=== PATIENT | male | born 1950 | race Caucasian/White ===

== ENCOUNTER 2020-07-31 13:39 | Outpatient (CLI) | payer MEDICARE | END 2020-07-31 13:40 | disposition critical access hospital (66) | LOC: EMS 13:39 | PROVIDERS: ATTEND Registered Nurse | DX: R39.198 Other difficulties with micturition (principal); R19.7 Diarrhea, unspecified | CPT/HCPCS: A0425; A0429 ==

== ENCOUNTER 2020-07-31 14:05 | Emergency (ER) | payer MEDICARE ==
[2020-07-31] MEDS ORDERED: SODIUM CHLORIDE 0.9% 1,000 ML IV STA (14:10)
[2020-07-31 14:34] LABS: BASOPHILS % (AUTO) 0.8 %; EOSINOPHILS # (AUTO) 0.1 10^3/uL (0.0-0.7); EOSINOPHILS % (AUTO) 2.1 %; LYMPHOCYTES # (AUTO) 0.6 10^3/uL (1.5-3.5); LYMPHOCYTES % (AUTO) 11.8 %; MEAN CORPUSCULAR HEMOGLOBIN 30.3 pg (27.0-31.0); MEAN CORPUSCULAR HGB CONC 32.7 g/dL (32.0-36.0); MEAN CORPUSCULAR VOLUME 92.6 fL (80.0-94.0); MONOCYTES # (AUTO) 0.8 10^3/uL (0.0-1.0); MONOCYTES % (AUTO) 14.7 %; NEUTROPHILS # (AUTO) 3.6 10^3/uL (1.5-6.6); NEUTROPHILS % (AUTO) 70.4 %; PLT - PLATELET COUNT 95 10^3/uL (130-450); RED BLOOD COUNT 2.97 10^6/uL (4.70-6.10); WHITE BLOOD COUNT 5.2 x10^3/uL (4.8-10.8)
[2020-07-31 14:38] LABS: INR 1.7 (0.8-1.2); PT - PROTHROMBIN TIME 18.4 secs (9.9-12.6)
--- NOTE | 2020-07-31 14:38 | ED Physician Documentation ---
History of Present Illness - Stated complaint Stated Complaint: ABD PX - Chief complaint Chief Complaint: General - Additonal information Additional information: 69-year-old male presents to the emergency department for evaluation of rectal b leeding and dribbling urine. He unfortunately has a history of end-stage liver disease, anemia, hepatic encephalopathy, ascites as well as alcohol abuse. He iscurrently drinking for "tall boy" beers a day. He reports that 4 days ago he decided to take a bath. At the end of the bath he was unable to get out of the bathtub. He remained in the tub for nearly 24 hours before neighbors came to help him. In an attempt to get out of the bathtub he has bruising in the right upper quadrant of his abdomen as well as the right hip. This morning he has been dribbling his urine and after defecating which he noted to be loose he began having rectal bleeding. He reports that on the advice of 2 friends he was told to come to the emergency department. On presentation he appears much older than stated age. He has a very distended and tight abdomen with palpable ascites. He is audibly dyspneic with wheeze and mild tachypnea. Normal saturations 98% on room air. He reports that he is having a hard time breathing because he is wearing a mask, but states he is always a "loud" breather. At this time he denies chest pain. He denies fevers, he denies abdominal pain. Though he appears dyspneic he denies shortness of air. He does have lower extremity swelling that is not new for him. He is adamant with nursing staff and this provider that he is at his baseline health and does not feel bad He does see Dr. Ulloa as his primary care doctor he denies that he has a history of receiving paracentesis on a regular basis. The last time was he was hospitalized was in December 2015. The distention of his abdomen is NOT new. he denies abdominal pain. He does not know the names of his medications that he takes though there do sound to be some diuresis involved. But he states he is compliant with his medications. Per his words "I cannot read the medication labels because of my cataracts but I take 3 pills in the morning and 1 in the evening." Patient [facility] a [facility] in [place]. Review of Systems Constitutional: denies: Fever, Chills, Myalgias Eyes: reports: Reviewed and negative Nose: reports: Reviewed and negative Throat: reports: Reviewed and negative Cardiac: reports: Pedal edema. denies: Chest pain / pressure, Palpitations Respiratory: reports: Dyspnea, Wheezing. denies: Cough, Hemoptysis GI: reports: Diarrhea, Bloody / black stool. denies: Abdominal Pain, Abdominal Swelling, Nausea, Vomiting : reports: Unable to Void Skin: reports: Abrasion (s) (abrasions/bruising RUQ abdomen, right hip) Neurologic: denies: Difficulty speaking, Near syncope, Syncope, Seizure, Altered mental status, Headache, Head injury, LOC PD PAST MEDICAL HISTORY - Past Medical History Past Medical History: Yes Cardiovascular: Hypertension Respiratory: None Endocrine/Autoimmune: None GI: None : None HEENT: Chronic vision loss, Other Psych: None Musculoskeletal: None Derm: None - Past Surgical History Past Surgical History: Yes General: Other HEENT: Tonsil/Adenoidectomy - Present Medications Home Medications: Ambulatory Orders Medication Instructions Recorded Confirmed Folic Acid 1 mg PO DAILY 30 Days #30 07/31/20 Furosemide [Lasix] 20 mg PO DAILY 07/31/20 07/31/20 Furosemide [Lasix] 20 mg PO DAILY #30 07/31/20 Lactulose 15 ml PO TID #1 bottle 07/31/20 Metoprolol Succinate [Toprol Xl] 50 mg PO DAILY 07/31/20 07/31/20 Metoprolol Succinate [Toprol Xl] 50 mg PO DAILY #30 07/31/20 Pantoprazole [Protonix] 40 mg PO DAILY #30 07/31/20 Propranolol [Inderal] 10 mg PO BID 07/31/20 07/31/20 Propranolol [Inderal] 10 mg PO BID #60 07/31/20 Spironolactone [Aldactone] 25 mg PO DAILY 07/31/20 07/31/20 Spironolactone [Aldactone] 25 mg PO DAILY #30 07/31/20 - Allergies Allergies/Adverse Reactions: Allergies Allergy/AdvReac Type Severity Reaction Status Date / Time No Known Drug Allergies Allergy Verified 07/31/20 15:09 - Social History Does the pt smoke?: No Smoking Status: Never smoker Does the pt drink ETOH?: Yes ETOH Use: Beer Does the pt have substance abuse?: Yes - Immunizations Immunizations are current?: Yes Immunizations: TDAP >10years/unknown - POLST Patient has POLST: No PD ED PE EXPANDED - General General: Alert, Disheveled, poorly kept (Urine stained clothing with bloody stool seen on the underpants) - HEENT HEENT: PERRL, Moist mucous membranes, Pharyngeal erythema - Neck Neck: Supple w/out meningeal sx, No tenderness - Cardiac Cardiac: Regular Rate, Murmur Present, Radial strong equal, Pedal strong equal, Cap refill < 2 sec - Respiratory Respiratory: Labored, Wheezing. No: Retractions, Rhonchi - Abdomen Abdomen: Distended (Grossly distended and taut abdomen with palpable ascites. Bruising right upper quadrant of the abdomen.) - Male Male : Normal Exam, Circumcised, Other (Bladder scan revealed 4 50-500 mils of retained urine) - Rectal Rectal: Hemorrhoid (Small amount of hematochezia on gloved finger), Normal Tone - Back Back: Other (Bruising right upper quadrant of abdomen and right hip.) - Derm Derm: Normal color, Warm and dry, Jaundiced, Other (Spider hemangiomas of chest and legs. Palmar erythema and ascites consistent with stigmata of cirrhosis) - Extremities Extremities: Pedal edema bilateral, Pedal Pulses Present. No: Deformity, Tenderness, Right calf TTP/cord, Left calf TTP/cord - Neuro Neuro: Alert and Oriented X 3, CNII-XII intact, Normal gait, Normal speech - GCS Eye Opening: Spontaneous Motor: Obeys Commands Verbal: Oriented Total: 15 Results - Vitals Vitals: Vital Signs - 24 hr 07/31/20 07/31/20 07/31/20 14:11 14:36 15:02 Temperature 37.2 C Heart Rate 89 85 84 Respiratory 24 25 H 25 H Rate Blood Pressure 158/91 H 145/96 H 139/79 H O2 Saturation 98 98 98 07/31/20 15:38 Temperature 36.9 C Heart Rate 85 Respiratory 21 Rate Blood Pressure 146/76 H O2 Saturation 98 Oxygen O2 Source Room air - EKG (time done) 1447 Rate: Rate (enter#) (85) Rhythm: NSR Baker: Normal Intervals: RBBB QRS: Normal Ischemia: Non specific changes Compare to prior EKG: Old EKG unavailable Computer interpretation: Agree with computer - Labs Labs: Laboratory Tests 07/31/20 07/31/20 07/31/20 14:18 14:18 14:18 WBC 5.2 RBC 2.97 L Hgb 9.0 L Hct 27.5 L MCV 92.6 MCH 30.3 MCHC 32.7 RDW 16.0 H Plt Count 95 L MPV 12.0 H Neut # (Auto) 3.6 Lymph # (Auto) 0.6 L [place] # (Auto) 0.8 Eos # (Auto) 0.1 Baso # (Auto) 0.0 Absolute Nucleated RBC 0.00 Nucleated RBC % 0.0 PT 18.4 H INR 1.7 H Sodium 132 L Potassium 3.6 Chloride 99 L Carbon Dioxide 24 Anion Gap 9.0 BUN 12 Creatinine 0.8 Estimated GFR (MDRD) 95 Glucose 103 H Lactic Acid Calcium 8.1 L Total Bilirubin 6.3 H AST 81 H ALT 25 Alkaline Phosphatase 175 H Ammonia Total Creatine Kinase Troponin I High Sens B-Natriuretic Peptide Total Protein 7.0 Albumin 2.8 L Globulin 4.2 Albumin/Globulin Ratio 0.7 L Lipase 48 TSH Urine Color Urine Clarity Urine pH Ur Specific [place] Urine Protein Urine Glucose (UA) Urine Ketones Urine Occult Blood Urine Nitrite Urine Bilirubin Urine Urobilinogen Ur Leukocyte Esterase Urine RBC Urine WBC Ur Squamous Epith Cells Urine Bacteria Ur Microscopic Review Urine Culture Comments Ethyl Alcohol Blood Type Antibody Screen 07/31/20 07/31/20 07/31/20 14:18 14:18 14:18 WBC RBC Hgb Hct MCV MCH MCHC RDW Plt Count MPV Neut # (Auto) Lymph # (Auto) [place] # (Auto) Eos # (Auto) Baso # (Auto) Absolute Nucleated RBC Nucleated RBC % PT INR Sodium Potassium Chloride Carbon Dioxide Anion Gap BUN Creatinine Estimated GFR (MDRD) Glucose Lactic Acid 1.6 Calcium Total Bilirubin AST ALT Alkaline Phosphatase Ammonia 52.2 H Total Creatine Kinase 86 Troponin I High Sens B-Natriuretic Peptide Total Protein Albumin Globulin Albumin/Globulin Ratio Lipase TSH Urine Color Urine Clarity Urine pH Ur Specific Canon Urine Protein Urine Glucose (UA) Urine Ketones Urine Occult Blood Urine Nitrite Urine Bilirubin Urine Urobilinogen Ur Leukocyte Esterase Urine RBC Urine WBC Ur Squamous Epith Cells Urine Bacteria Ur Microscopic Review Urine Culture Comments Ethyl Alcohol Blood Type Antibody Screen 07/31/20 07/31/20 07/31/20 14:18 14:18 14:18 WBC RBC Hgb Hct MCV MCH MCHC RDW Plt Count MPV Neut # (Auto) Lymph # (Auto) [place] # (Auto) Eos # (Auto) Baso # (Auto) Absolute Nucleated RBC Nucleated RBC % PT INR Sodium Potassium Chloride Carbon Dioxide Anion Gap BUN Creatinine Estimated GFR (MDRD) Glucose Lactic Acid Calcium Total Bilirubin AST ALT Alkaline Phosphatase Ammonia Total Creatine Kinase Troponin I High Sens 8.5 B-Natriuretic Peptide 265 H Total Protein Albumin Globulin Albumin/Globulin Ratio Lipase TSH 6.70 H Urine Color Urine Clarity Urine pH Ur Specific Canon Urine Protein Urine Glucose (UA) Urine Ketones Urine Occult Blood Urine Nitrite Urine Bilirubin Urine Urobilinogen Ur Leukocyte Esterase Urine RBC Urine WBC Ur Squamous Epith Cells Urine Bacteria Ur Microscopic Review Urine Culture Comments Ethyl Alcohol Blood Type Antibody Screen 07/31/20 07/31/20 07/31/20 14:18 14:35 14:40 WBC RBC Hgb Hct MCV MCH MCHC RDW Plt Count MPV Neut # (Auto) Lymph # (Auto) [place] # (Auto) Eos # (Auto) Baso # (Auto) Absolute Nucleated RBC Nucleated RBC % PT INR Sodium Potassium Chloride Carbon Dioxide Anion Gap BUN Creatinine Estimated GFR (MDRD) Glucose Lactic Acid Calcium Total Bilirubin AST ALT Alkaline Phosphatase Ammonia Total Creatine Kinase Troponin I High Sens B-Natriuretic Peptide Total Protein Albumin Globulin Albumin/Globulin Ratio Lipase TSH Urine Color YELLOW Urine Clarity CLEAR Urine pH 6.5 Ur Specific [place] 1.020 Urine Protein NEGATIVE Urine Glucose (UA) NEGATIVE Urine Ketones NEGATIVE Urine Occult Blood MODERATE H Urine Nitrite NEGATIVE Urine Bilirubin NEGATIVE Urine Urobilinogen 0.2 (NORMAL) Ur Leukocyte Esterase NEGATIVE Urine RBC 6-10 H Urine WBC 0-3 Ur Squamous Epith Cells RARE Squamous Urine Bacteria None Seen Ur Microscopic Review INDICATED Urine Culture Comments NOT INDICATED Ethyl Alcohol < 5.0 Blood Type A POSITIVE Antibody Screen NEGATIVE - Rads (name of study) CT abd Radiology: Final report received (No significant rectal or perirectal abnormalities seen to explain the patient's presenting history of rectal bleeding. Cirrhotic liver with findings of portal venous hypertension with upper abdominal varices including GE varices and a recanalized umbilical vein/varices. splenomegaly and ascites) PD MEDICAL DECISION MAKING - ED course Complexity details: reviewed results, re-evaluated patient, considered differential, d/w patient ED course: 69-year-old male who has a history of end-stage liver disease presents to the emergency department for chief complaint of 2 days difficulty initiating urine and noted rectal bleeding this a.m. He reports that he is compliant with his medications however he is unsure the name of any medications that he takes. He also reports cataract so severe that he cannot read the labels of the medicines he take this. We called the [place] pharmacy where he feels his meds and it does not appear that he has filled some of them for 2 to 3 months. On presentation he has a very distended abdomen with palpable ascites however he has no abdominal pain or fevers. His screening labs do show a baseline anemia of 9.0. Is preserved renal function as expected LFTs for cirrhosis. His BNP is mildly elevated in the 200s. High-sensitivity troponin is negative. Urine shows no signs of infection. A CT scan was completed it does show moderate ascites in the abdomen. Also findings of esophageal varices. On presentation he had formed and to milliliters of urine on bladder scan. A Calix catheter was placed with an equivocal amount that quickly drained. Suspicion is that this gentleman may not be taking his medications appropriately as he cannot read the bottles to understand them in addition to that he has not filled some the medications for many months. I suspect that increased ascites is contributing to his urinary retention. Reassuringly renal function is preserved and no hydronephrosis on CT scan. I offered patient a Calix catheter with leg bag upon discharge however he declined that option quite promptly. Patient does appear dyspneic but he is quite adamant as well that this is the way he normally bruits he does not feel that he is labored. Patient will be resumed on appropriate end-stage liver disease cirrhosis medications will include lactulose, Lasix, Aldactone, propanolol, folic acid, Metroprolol and Protonix. I have asked him to schedule very close follow-up with Dr. Ulloa this week. He is to return to the emergency department if he continues to have difficulty u rinating. He will return if he has worsening bloody stools fevers or if he begins to feel short of breath or with chest pain Departure - Departure Disposition: 01 Home, Self Care Clinical Impression: Urinary retention, Rectal bleeding Cirrhosis Qualifiers: Hepatic cirrhosis type: alcoholic cirrhosis Ascites presence: with ascites Qualified Code(s): K70.31 - Alcoholic cirrhosis of liver with ascites Condition: Stable Record reviewed to determine appropriate education?: Yes Instructions: Cirrhosis Liver Dc Follow-Up: Chuck Ulloa MD [Provider Admit Priv/Credential] - Prescriptions: Spironolactone [Aldactone] 25 mg PO DAILY #30 Folic Acid 1 mg PO DAILY 30 Days #30 Propranolol [Inderal] 10 mg PO BID #60 Lactulose 15 ml PO TID #1 bottle Furosemide [Lasix] 20 mg PO DAILY #30 Pantoprazole [Protonix] 40 mg PO DAILY #30 Metoprolol Succinate [Toprol Xl] 50 mg PO DAILY #30 Comments: Bobby lobo were seen in the emergency department today for urinary retention and rectal bleeding. As discussed we suspect you not taking the medications appropriately for a number of reasons. I have represcribed all of the medications you should be taking. Please fill them tomorrow and begin taking as directed. In addition to that please do not take any other medications you were previously prescribed. It is critical that you follow-up with Dr. Ulloa your primary provider this week. If at any point you are unable to urinate, you feel faint or dizzy, you have chest pain or feel short of breath or you have worsening rectal bleeding please return immediately to the emergency department.
[2020-07-31] MEDS ORDERED: FOLIC ACID INJ 1 MG, THIAMINE INJ 100 MG, MAGNESIUM SULFATE 2 GM, MULTIVITAMIN 10 ML in... IV STA ×5 (14:43)
[2020-07-31] MEDS ORDERED: PANTOPRAZOLE 40 MG VIAL IVP STA (14:44)
[2020-07-31] MEDS ORDERED: FOLIC ACID INJ 1 MG, THIAMINE INJ 100 MG, MAGNESIUM SULFATE 2 GM in SODIUM CHLORIDE 0.9... IV STA (14:46)
[2020-07-31 14:47] LABS: ALBUMIN 2.8 g/dL (3.2-5.5); ALBUMIN/GLOBULIN RATIO 0.7 (1.0-2.2); BILIRUBIN,TOTAL 6.3 mg/dL (0.2-1.0); CALCIUM 8.1 mg/dL (8.5-10.3); CREATININE 0.8 mg/dL (0.6-1.2)
[2020-07-31 14:49] LABS: BILIRUBIN,URINE NEGATIVE (NEGATIVE); GLUCOSE, URINE (UA) NEGATIVE (NEGATIVE); KETONES,URINE (UA) NEGATIVE (NEGATIVE); LEUKOCYTE ESTERASE, URINE NEGATIVE (NEGATIVE); NITRITE,URINE NEGATIVE (NEGATIVE); OCCULT BLOOD,URINE MODERATE (NEGATIVE); PH,URINE 6.5 PH (5.0-7.5); PROTEIN,URINE NEGATIVE (NEGATIVE); UROBILINOGEN,URINE 0.2 (NORMAL) E.U./dL (NORMAL)
--- NOTE | 2020-07-31 14:53 | XRAY Report ---
PROCEDURE: Chest 1 View X-Ray INDICATIONS: chest pain TECHNIQUE: One view of the chest was acquired. COMPARISON: None FINDINGS: Surgical changes and devices: None. Lungs and pleura: No pleural effusions or pneumothorax. Lungs are clear. Mediastinum: Mediastinal contours appear normal. Heart size is normal. Bones and chest wall: No suspicious bony lesions. Age-appropriate degenerative changes are seen. Overlying soft tissues appear unremarkable. IMPRESSION: Portable chest within normal limits for age. Reviewed by: Rehan Bazzi MD on 07/31/2020 1:52 PM [facility] Approved by: Rehan Bazzi MD on 07/31/2020 1:52 PM [facility] Station ID: [id number]
[2020-07-31 15:00] LABS: BACTERIA,URINE None Seen /HPF (None Seen); CLARITY,URINE CLEAR (CLEAR); SQUAMOUS EPITHELIAL CELL,UR RARE Squamous (<= Few)
[2020-07-31] MEDS ORDERED: IOVERSOL 320 100 ML VIAL IVP ONE ×2 (15:26→15:29)
--- NOTE | 2020-07-31 15:42 | CT Report ---
PROCEDURE: Abdomen/Pelvis W INDICATIONS: rectal bleeding CONTRAST: IV CONTRAST: Optiray 320 ml: 100 PO CONTRAST: *NO PO CONTRAST TECHNIQUE: After the administration of nonionic IV contrast, 5 mm thick sections acquired from the diaphragms to the symphysis. 5 mm thick coronal and sagittal reformats were acquired. For radiation dose reducti on, the following was used: automated exposure control, adjustment of mA and/or kV according to zeeshan ent size. COMPARISON: 12/19/2015 FINDINGS: Image quality: Excellent. ABDOMEN: Lung bases: Lung bases are clear. Heart size is normal. Solid organs: The liver demonstrates a nodular appearance. No focal liver masses can be seen. Upper a bdominal varices are seen, with gastroesophageal varices. There is a recanalized umbilical vein seen, with periumbilical varices. The spleen is enlarged, measuring 15.6 cm AP. No focal splenic lesion ca n be seen. Gallbladder demonstrates no significant CT abnormality Biliary system is non dilated. Pancreas enha nces normally. No adrenal nodules. Kidneys demonstrate normal size and enhancement, without hydrone phrosis. Peritoneum and bowel: In this patient with this given history, scrutiny is given to the region of th e rectum. No significant karl, rectal mass can be seen. No significant perirectal abnormality is see n. Bowel loops demonstrate normal wall thickness and caliber. No free air. A moderate amount of ascite s is seen. A normal appendix is incidentally noted. Nodes and vessels: No retroperitoneal or mesenteric adenopathy by size criteria. Aorta and inferior vena cava are normal in size. Atherosclerotic calcification is seen. Miscellaneous: No ventral hernias. PELVIS: Genitourinary: A Calix catheter decompresses the bladder. Miscellaneous: A fat-containing left inguinal hernia is seen. No enlarged inguinal or pelvic lymph n odes are seen. Bones: No suspicious bony lesions. No vertebral body compression fractures. Age-appropriate degene rative changes are seen. IMPRESSION: No significant rectal or perirectal abnormality is seen to explain the patient's present ing history of rectal bleeding. Cirrhotic liver, with associated findings of portal venous hypertension with upper abdominal varices, including gastroesophageal varices and a recanalized umbilical vein with periumbilical varices. Ther e is also splenomegaly and moderate ascites. Incidental note is made of: Normal appendix Calix catheter Fat-containing left inguinal hernia Reviewed by: Rehan Bazzi MD on 07/31/2020 2:41 PM [facility] Approved by: Rehan Bazzi MD on 07/31/2020 2:41 PM [facility] Station ID: [id number]
[2020-07-31] MEDS ORDERED: FUROSEMIDE 40 MG/4 ML VIAL IVP STA (15:49)
[2020-07-31] MEDS ORDERED: LACTULOSE 10 GM /15 ML UDC PO STA (15:49)
[2020-07-31 17:47] VITALS: BP 138/91
== END 2020-07-31 18:45 | disposition home or self-care (01) ==
LOC: EDUNIT# → ED 14:05
DX: R33.9 Retention of urine, unspecified (principal); K62.5 Hemorrhage of anus and rectum; K70.31 Alcoholic cirrhosis of liver with ascites; F10.10 Alcohol abuse, uncomplicated; Z91.138 Patient's unintentional underdosing of medication regimen for other reason
CPT/HCPCS: 36415; 51701; 71045; 74177; 80053; 81001; 82140; 82550; 83605; 83690; 83880; 84443; 84484; 85025; 85610; 86850; 86900; 86901; 93005; 96365; 96366; 96375; 99284; 99285; A9270; G0480; J3411; Q9967; 80320; 81003; 87086

== ENCOUNTER 2021-02-25 10:43 | Outpatient (CLI) | payer MEDICARE | END 2021-02-25 10:44 | disposition EMS.NT | LOC: EMS 10:43 | DX: Z03.89 Encounter for observation for other suspected diseases and conditions ruled out (principal) ==

== ENCOUNTER 2021-02-28 11:12 | Outpatient (CLI) | payer MEDICARE | END 2021-02-28 11:13 | disposition critical access hospital (66) | LOC: EMS 11:12 | DX: R41.82 Altered mental status, unspecified (principal) | CPT/HCPCS: A0425; A0429 ==

== ENCOUNTER 2021-02-28 11:42 | Inpatient (IN) | payer MEDICARE ==
[2021-02-28] MEDS ORDERED: FOLIC ACID INJ 1 MG, THIAMINE INJ 100 MG, MAGNESIUM SULFATE 2 GM, MULTIVITAMIN 10 ML in... IV STA ×5 (12:27)
--- NOTE | 2021-02-28 12:30 | ED Physician Documentation ---
History of Present Illness - Stated complaint Stated Complaint: FOUND DOWN - Chief complaint Chief Complaint: Neuro - History obtained from History obtained from: Patient, EMS - History of Present Illness Timing: Unknown Pain level max: 0 Pain level now: 0 - Additonal information Additional information: Patient is a 70-year-old male brought in by EMS today after he was found down at a hotel that he has been living at. He has a longstanding history of alcoholism and cirrhosis. Unclear if he has been taking his medications or not. EMS states he was covered in feces and very confused. Patient states that he has no pain. He states that he has been sick. He is unable to give any further information about what he means by "sick". No fevers. No chills. He denies any diarrhea or vomiting. He denies any trauma. Review of Systems Unable to obtain: [facility] PAST MEDICAL HISTORY - Past Medical History Past Medical History: Yes Cardiovascular: Hypertension Respiratory: None Endocrine/Autoimmune: None GI: None, Cirrhosis : None HEENT: Chronic vision loss, Other Psych: None Musculoskeletal: None Derm: None - Past Surgical History Past Surgical History: Yes General: Other HEENT: Tonsil/Adenoidectomy - Present Medications Home Medications: Ambulatory Orders Medication Instructions Recorded Confirmed Folic Acid 1 mg PO DAILY 30 Days #30 07/31/20 Furosemide [Lasix] 20 mg PO DAILY 07/31/20 07/31/20 Furosemide [Lasix] 20 mg PO DAILY #30 07/31/20 Lactulose 15 ml PO TID #1 bottle 07/31/20 Metoprolol Succinate [Toprol Xl] 50 mg PO DAILY 07/31/20 07/31/20 Metoprolol Succinate [Toprol Xl] 50 mg PO DAILY #30 07/31/20 Pantoprazole [Protonix] 40 mg PO DAILY #30 07/31/20 Propranolol [Inderal] 10 mg PO BID 07/31/20 07/31/20 Propranolol [Inderal] 10 mg PO BID #60 07/31/20 Spironolactone [Aldactone] 25 mg PO DAILY 07/31/20 07/31/20 Spironolactone [Aldactone] 25 mg PO DAILY #30 07/31/20 - Allergies Allergies/Adverse Reactions: Allergies Allergy/AdvReac Type Severity Reaction Status Date / Time No Known Drug Allergies Allergy Verified 02/14/21 15:09 - Social History Does the pt smoke?: No Smoking Status: Never smoker Does the pt drink ETOH?: Yes Does the pt have substance abuse?: Yes - Immunizations Immunizations are current?: Yes Immunizations: TDAP >10years/unknown - POLST Patient has POLST: No PD ED PE NORMAL - Vitals Vital signs reviewed: Yes - General General: Other (drowsy, but arousable) - HEENT HEENT: Moist mucous membranes - Neck Neck: Supple, no meningeal sign - Cardiac Cardiac: RRR - Respiratory Respiratory: No respiratory distress, Other (rhonchi B) - Abdomen Abdomen: Soft, Non tender, Non distended - Back Back: No spinal TTP, Other (skin breakdown to the buttocks) - Derm Derm: Warm and dry - Extremities Extremities: No edema - Neuro Neuro: Other (drowsy arousable, oriented to person and place, not to time) Eye Opening: To Voice Motor: Localizes to Pain Verbal: Inappropriate GCS Score: 11 Results - Vitals Vitals: Vital Signs - 24 hr 02/28/21 02/28/21 02/28/21 11:45 13:55 13:58 Temperature 37 C Heart Rate 131 H 104 H 98 Respiratory 22 20 21 Rate Blood Pressure 144/75 H 131/46 H 131/46 H O2 Saturation 958 H 99 90 L 02/28/21 02/28/21 02/28/21 15:00 16:13 16:29 Temperature Heart Rate 160 H 141 H 169 H Respiratory 18 17 23 Rate Blood Pressure 129/62 119/56 L 119/56 L O2 Saturation 98 95 96 02/28/21 02/28/21 02/28/21 16:39 17:36 19:02 Temperature Heart Rate 160 H 152 H 136 H Respiratory 21 18 19 Rate Blood Pressure 119/56 L 106/71 107/58 L O2 Saturation 97 96 98 02/28/21 02/28/21 02/28/21 19:30 20:30 21:00 Temperature 97.6 C H Heart Rate 127 H 152 H 135 H Respiratory 20 23 30 H Rate Blood Pressure 121/62 136/87 H 137/83 H O2 Saturation 95 97 94 02/28/21 22:21 Temperature Heart Rate 112 H Respiratory 29 H Rate Blood Pressure 96/67 O2 Saturation 93 Oxygen O2 Source Room air - EKG (time done) 1209 Rate: Rate (enter#) (104) Rhythm: Atrial fibrillation (104) QRS: Normal Ischemia: Non specific changes - Labs Labs: Laboratory Tests 02/28/21 02/28/21 02/28/21 12:34 12:34 12:34 WBC 33.9 H RBC 4.68 L Hgb 11.0 L Hct 33.4 L MCV 71.4 L MCH 23.5 L MCHC 32.9 RDW 25.2 H Plt Count 333 MPV 10.5 Neut # (Auto) Not Reportable Lymph # (Auto) Not Reportable [place] # (Auto) Not Reportable Eos # (Auto) Not Reportable Baso # (Auto) Not Reportable Absolute Nucleated RBC Not Reportable Total Counted 100 Band Neuts % (Manual) 3 Abnorm Lymph % (Manual) 0 Nucleated RBC % Not Reportable Neutrophils # (Manual) 31.9 H Lymphocytes # (Manual) 0.3 L Monocytes # (Manual) 1.7 H Eosinophils # (Manual) 0.0 Basophils # (Manual) 0.0 Differential Comment MANUAL DIFFERENTIAL Manual Slide Review Indicated PT INR APTT VBG pH VBG pCO2 VBG pO2 VBG HCO3 VBG Total CO2 VBG O2 Saturation VBG Base Excess Sodium 133 L Potassium 5.2 H Chloride 94 L Carbon Dioxide 13 L Anion Gap 26.0 H BUN 202 H* Creatinine 10.3 H* Estimated GFR (MDRD) 5 L Glucose 137 H Lactic Acid Calcium 8.2 L Phosphorus Magnesium Total Bilirubin 4.8 H AST 24 ALT 20 Alkaline Phosphatase 149 H Ammonia Total Creatine Kinase 36 Total Protein 7.2 Albumin 2.8 L Globulin 4.4 H Albumin/Globulin Ratio 0.6 L Lipase 246 H TSH 2.35 Free T4 0.69 Urine Color Urine Clarity Urine pH Ur Specific [place] Urine Protein Urine Glucose (UA) Urine Ketones Urine Occult Blood Urine Nitrite Urine Bilirubin Urine Urobilinogen Ur Leukocyte Esterase Urine RBC Urine WBC Ur Squamous Epith Cells Urine Bacteria Ur Microscopic Review Urine Culture Comments Nasal Adenovirus (PCR) Nasal B. parapertussis DNA (PCR) Nasal Coronavir 229E PCR Nasal Coronavir HKU1 PCR Nasal Coronavir NL63 PCR Nasal Coronavir OC43 PCR Nasal Enterovir/Rhinovir PCR Nasal Influenza B PCR Nasal Influenza A PCR Nasal Parainfluen 1 PCR Nasal Parainfluen 2 PCR Nasal Parainfluen 3 PCR Nasal Parainfluen 4 PCR Nasal RSV (PCR) Nasal B.pertussis DNA PCR Nasal C.pneumoniae (PCR) Gregory Human Metapneumo PCR Nasal M.pneumoniae (PCR) Nasal SARS-CoV-2 (PCR) Salicylates < 6.0 Urine Opiates Screen Ur Oxycodone Screen Urine Methadone Screen Ur Propoxyphene Screen Acetaminophen < 10 L Ur Barbiturates Screen Ur Tricyclics Screen Ur Phencyclidine Scrn Ur Amphetamine Screen U Methamphetamines Scrn U Benzodiazepines Scrn Urine Cocaine Screen U Cannabinoids Screen Ethyl Alcohol < 5.0 02/28/21 02/28/21 02/28/21 12:34 12:34 13:03 WBC RBC Hgb Hct MCV MCH MCHC RDW Plt Count MPV Neut # (Auto) Lymph # (Auto) [place] # (Auto) Eos # (Auto) Baso # (Auto) Absolute Nucleated RBC Total Counted Band Neuts % (Manual) Abnorm Lymph % (Manual) Nucleated RBC % Neutrophils # (Manual) Lymphocytes # (Manual) Monocytes # (Manual) Eosinophils # (Manual) Basophils # (Manual) Differential Comment Manual Slide Review PT 16.3 H INR 1.5 H APTT 30.2 VBG pH VBG pCO2 VBG pO2 VBG HCO3 VBG Total CO2 VBG O2 Saturation VBG Base Excess Sodium Potassium Chloride Carbon Dioxide Anion Gap BUN Creatinine Estimated GFR (MDRD) Glucose Lactic Acid Calcium Phosphorus Magnesium Total Bilirubin AST ALT Alkaline Phosphatase Ammonia 167.0 H* Total Creatine Kinase Total Protein Albumin Globulin Albumin/Globulin Ratio Lipase TSH Free T4 Urine Color DARK YELLOW Urine Clarity CLOUDY Urine pH 6.0 Ur Specific [place] 1.015 Urine Protein NEGATIVE Urine Glucose (UA) NEGATIVE Urine Ketones NEGATIVE Urine Occult Blood LARGE H Urine Nitrite NEGATIVE Urine Bilirubin NEGATIVE Urine Urobilinogen 1 (NORMAL) Ur Leukocyte Esterase MODERATE H Urine RBC 6-10 H Urine WBC >25 H Ur Squamous Epith Cells NONE SEEN Urine Bacteria Few Ur Microscopic Review INDICATED Urine Culture Comments INDICATED Nasal Adenovirus (PCR) Nasal B. parapertussis DNA (PCR) Nasal Coronavir 229E PCR Nasal Coronavir HKU1 PCR Nasal Coronavir NL63 PCR Nasal Coronavir OC43 PCR Nasal Enterovir/Rhinovir PCR Nasal Influenza B PCR Nasal Influenza A PCR Nasal Parainfluen 1 PCR Nasal Parainfluen 2 PCR Nasal Parainfluen 3 PCR Nasal Parainfluen 4 PCR Nasal RSV (PCR) Nasal B.pertussis DNA PCR Nasal C.pneumoniae (PCR) Gregory Human Metapneumo PCR Nasal M.pneumoniae (PCR) Nasal SARS-CoV-2 (PCR) Salicylates Urine Opiates Screen Ur Oxycodone Screen Urine Methadone Screen Ur Propoxyphene Screen Acetaminophen Ur Barbiturates Screen Ur Tricyclics Screen Ur Phencyclidine Scrn Ur Amphetamine Screen U Methamphetamines Scrn U Benzodiazepines Scrn Urine Cocaine Screen U Cannabinoids Screen Ethyl Alcohol 02/28/21 02/28/21 02/28/21 13:03 13:44 14:05 WBC RBC Hgb Hct MCV MCH MCHC RDW Plt Count MPV Neut # (Auto) Lymph # (Auto) [place] # (Auto) Eos # (Auto) Baso # (Auto) Absolute Nucleated RBC Total Counted Band Neuts % (Manual) Abnorm Lymph % (Manual) Nucleated RBC % Neutrophils # (Manual) Lymphocytes # (Manual) Monocytes # (Manual) Eosinophils # (Manual) Basophils # (Manual) Differential Comment Manual Slide Review PT INR APTT VBG pH VBG pCO2 VBG pO2 VBG HCO3 VBG Total CO2 VBG O2 Saturation VBG Base Excess Sodium Potassium Chloride Carbon Dioxide Anion Gap BUN Creatinine Estimated GFR (MDRD) Glucose Lactic Acid 3.1 H* Calcium Phosphorus Magnesium Total Bilirubin AST ALT Alkaline Phosphatase Ammonia Total Creatine Kinase Total Protein Albumin Globulin Albumin/Globulin Ratio Lipase TSH Free T4 Urine Color Urine Clarity Urine pH Ur Specific [place] Urine Protein Urine Glucose (UA) Urine Ketones Urine Occult Blood Urine Nitrite Urine Bilirubin Urine Urobilinogen Ur Leukocyte Esterase Urine RBC Urine WBC Ur Squamous Epith Cells Urine Bacteria Ur Microscopic Review Urine Culture Comments Nasal Adenovirus (PCR) NOT DETECTED Nasal B. parapertussis DNA (PCR) NOT DETECTED Nasal Coronavir 229E PCR NOT DETECTED Nasal Coronavir HKU1 PCR NOT DETECTED Nasal Coronavir NL63 PCR NOT DETECTED Nasal Coronavir OC43 PCR NOT DETECTED Nasal Enterovir/Rhinovir PCR NOT DETECTED Nasal Influenza B PCR NOT DETECTED Nasal Influenza A PCR NOT DETECTED Nasal Parainfluen 1 PCR NOT DETECTED Nasal Parainfluen 2 PCR NOT DETECTED Nasal Parainfluen 3 PCR NOT DETECTED Nasal Parainfluen 4 PCR NOT DETECTED Nasal RSV (PCR) NOT DETECTED Nasal B.pertussis DNA PCR NOT DETECTED Nasal C.pneumoniae (PCR) NOT DETECTED Gregory Human Metapneumo PCR NOT DETECTED Nasal M.pneumoniae (PCR) NOT DETECTED Nasal SARS-CoV-2 (PCR) NOT DETECTED Salicylates Urine Opiates Screen NEGATIVE Ur Oxycodone Screen NEGATIVE Urine Methadone Screen NEGATIVE Ur Propoxyphene Screen NEGATIVE Acetaminophen Ur Barbiturates Screen NEGATIVE Ur Tricyclics Screen NEGATIVE Ur Phencyclidine Scrn NEGATIVE Ur Amphetamine Screen NEGATIVE U Methamphetamines Scrn NEGATIVE U Benzodiazepines Scrn NEGATIVE Urine Cocaine Screen NEGATIVE U Cannabinoids Screen NEGATIVE Ethyl Alcohol 02/28/21 02/28/21 02/28/21 17:48 21:44 21:44 WBC 25.7 H RBC 4.19 L Hgb 9.9 L Hct 29.5 L MCV 70.4 L MCH 23.6 L MCHC 33.6 RDW 24.7 H Plt Count 284 MPV 10.3 Neut # (Auto) 22.7 H Lymph # (Auto) 0.6 L [place] # (Auto) 2.1 H Eos # (Auto) 0.0 Baso # (Auto) 0.1 Absolute Nucleated RBC 0.00 Total Counted Band Neuts % (Manual) Abnorm Lymph % (Manual) Nucleated RBC % 0.0 Neutrophils # (Manual) Lymphocytes # (Manual) Monocytes # (Manual) Eosinophils # (Manual) Basophils # (Manual) Differential Comment Manual Slide Review Indicated PT INR APTT VBG pH VBG pCO2 VBG pO2 VBG HCO3 VBG Total CO2 VBG O2 Saturation VBG Base Excess Sodium 135 137 Potassium 4.5 4.5 Chloride 101 104 Carbon Dioxide 12 L* 11 L* Anion Gap 22.0 H 22.0 H BUN 180 H* 173 H* Creatinine 8.7 H* 7.9 H* Estimated GFR (MDRD) 6 L 7 L Glucose 126 H 133 H Lactic Acid Calcium 7.7 L 7.7 L Phosphorus Magnesium Total Bilirubin 4.5 H AST 21 ALT 19 Alkaline Phosphatase 139 H Ammonia Total Creatine Kinase Total Protein 6.6 L Albumin 2.5 L Globulin 4.1 Albumin/Globulin Ratio 0.6 L Lipase 251 H TSH Free T4 Urine Color Urine Clarity Urine pH Ur Specific [place] Urine Protein Urine Glucose (UA) Urine Ketones Urine Occult Blood Urine Nitrite Urine Bilirubin Urine Urobilinogen Ur Leukocyte Esterase Urine RBC Urine WBC Ur Squamous Epith Cells Urine Bacteria Ur Microscopic Review Urine Culture Comments Nasal Adenovirus (PCR) Nasal B. parapertussis DNA (PCR) Nasal Coronavir 229E PCR Nasal Coronavir HKU1 PCR Nasal Coronavir NL63 PCR Nasal Coronavir OC43 PCR Nasal Enterovir/Rhinovir PCR Nasal Influenza B PCR Nasal Influenza A PCR Nasal Parainfluen 1 PCR Nasal Parainfluen 2 PCR Nasal Parainfluen 3 PCR Nasal Parainfluen 4 PCR Nasal RSV (PCR) Nasal B.pertussis DNA PCR Nasal C.pneumoniae (PCR) Gregory Human Metapneumo PCR Nasal M.pneumoniae (PCR) Nasal SARS-CoV-2 (PCR) Salicylates Urine Opiates Screen Ur Oxycodone Screen Urine Methadone Screen Ur Propoxyphene Screen Acetaminophen Ur Barbiturates Screen Ur Tricyclics Screen Ur Phencyclidine Scrn Ur Amphetamine Screen U Methamphetamines Scrn U Benzodiazepines Scrn Urine Cocaine Screen U Cannabinoids Screen Ethyl Alcohol 02/28/21 02/28/21 02/28/21 21:44 21:44 22:02 WBC RBC Hgb Hct MCV MCH MCHC RDW Plt Count MPV Neut # (Auto) Lymph # (Auto) [place] # (Auto) Eos # (Auto) Baso # (Auto) Absolute Nucleated RBC Total Counted Band Neuts % (Manual) Abnorm Lymph % (Manual) Nucleated RBC % Neutrophils # (Manual) Lymphocytes # (Manual) Monocytes # (Manual) Eosinophils # (Manual) Basophils # (Manual) Differential Comment Manual Slide Review PT INR APTT VBG pH 7.407 VBG pCO2 19.0 L VBG pO2 75.4 H VBG HCO3 11.7 L VBG Total CO2 12.3 L VBG O2 Saturation 93.4 H VBG Base Excess -11.0 L Sodium Potassium Chloride Carbon Dioxide Anion Gap BUN Creatinine Estimated GFR (MDRD) Glucose Lactic Acid 2.5 H Calcium Phosphorus 8.0 H Magnesium 3.5 H Total Bilirubin AST ALT Alkaline Phosphatase Ammonia Total Creatine Kinase Total Protein Albumin Globulin Albumin/Globulin Ratio Lipase TSH Free T4 Urine Color Urine Clarity Urine pH Ur Specific [place] Urine Protein Urine Glucose (UA) Urine Ketones Urine Occult Blood Urine Nitrite Urine Bilirubin Urine Urobilinogen Ur Leukocyte Esterase Urine RBC Urine WBC Ur Squamous Epith Cells Urine Bacteria Ur Microscopic Review Urine Culture Comments Nasal Adenovirus (PCR) Nasal B. parapertussis DNA (PCR) Nasal Coronavir 229E PCR Nasal Coronavir HKU1 PCR Nasal Coronavir NL63 PCR Nasal Coronavir OC43 PCR Nasal Enterovir/Rhinovir PCR Nasal Influenza B PCR Nasal Influenza A PCR Nasal Parainfluen 1 PCR Nasal Parainfluen 2 PCR Nasal Parainfluen 3 PCR Nasal Parainfluen 4 PCR Nasal RSV (PCR) Nasal B.pertussis DNA PCR Nasal C.pneumoniae (PCR) Gregory Human Metapneumo PCR Nasal M.pneumoniae (PCR) Nasal SARS-CoV-2 (PCR) Salicylates Urine Opiates Screen Ur Oxycodone Screen Urine Methadone Screen Ur Propoxyphene Screen Acetaminophen Ur Barbiturates Screen Ur Tricyclics Screen Ur Phencyclidine Scrn Ur Amphetamine Screen U Methamphetamines Scrn U Benzodiazepines Scrn Urine Cocaine Screen U Cannabinoids Screen Ethyl Alcohol - Rads (name of study) head CT Radiology: Final report received, EMP read contemporaneously, See rad report (No acute intracranial abnormality. ) cervical spine CT Radiology: Final report received, EMP read contemporaneously, See rad report (no acute abnormality) cxr Radiology: Final report received, EMP read contemporaneously, See rad report (No acute pulmonary process. ) PD MEDICAL DECISION MAKING - ED course Complexity details: reviewed results, re-evaluated patient, considered differential, d/w patient ED course: 1330 - Calls were placed to several hospitals in the area including [facility] in [place], [facility] in [place], [facility] in [place], [facility], [facility] and [facility] in [place]. There are no beds available. The patient was placed on several waiting lists and will continue to board in the emergency department. 1929 - Still no beds available. Patient is on a diltiazem drip. Heart rate controlled. Given IV fluids and IV antibiotics. He is still making urine with good urine output. We will continue antibiotics, fluids and continue to search for a bed. 2229 - Patient continues to be encephalopathic. he was changed from a diltiazem drip to a esmolol drip which seems to have improved his rate control. His white blood cell count has decreased, lactate has decreased and creatinine has decreased. We are still awaiting an ICU bed. There are no ICU beds available here or at any of the surrounding hospitals. We will continue to look for a bed while continuing To provide antibiotics, IV fluids and esmolol drip. Patient signed out to Dr. Looney for further care. - Sepsis Event Sepsis Onset Date: 02/28/21 Sepsis Onset Time: 13:50 Current Stage of Sepsis: Sepsis Initial Hypotension: Not hypotensive Possible source of Sepsis: Genitourinary, Skin/soft tissue Mental/Cognitive Status: Confused Reason for not giving 30ml/kg crystalloid fluids: Not in septic shock, Fluid overload potential Capillary refill: Less than 2 seconds Peripheral Pulse Strength: 2+ Slightly Diminished Peripheral Pulse Location: Radial Bedside ultrasound performed: No Departure - Departure Disposition: 02 Transfer Acute Care Hosp Clinical Impression: Uremia, Hyperammonemia, Encephalopathy, End stage liver disease, Hepatic encephalopathy, Jazz infection of genital region, Alcohol abuse Acute renal failure Qualifiers: Acute renal failure type: unspecified Qualified Code(s): N17.9 - Acute kidney failure, unspecified Altered mental status Qualifiers: Altered mental status type: disorientation Qualified Code(s): R41.0 - Disorientation, unspecified UTI (urinary tract infection) Qualifiers: Urinary tract infection type: acute cystitis Hematuria presence: without hematuria Qualified Code(s): N30.00 - Acute cystitis without hematuria Condition: Stable
[2021-02-28 12:40] LABS: BASOPHILS % (AUTO) 0.4 %; HCT - HEMATOCRIT 33.4 % (42.0-52.0); LYMPHOCYTES % (AUTO) 2.3 %; MEAN CORPUSCULAR HEMOGLOBIN 23.5 pg (27.0-31.0); MEAN CORPUSCULAR HGB CONC 32.9 g/dL (32.0-36.0); MEAN CORPUSCULAR VOLUME 71.4 fL (80.0-94.0); MEAN PLATELET VOLUME 10.5 fL (7.4-11.4); NEUTROPHILS % (AUTO) 89.6 %; PLT - PLATELET COUNT 333 10^3/uL (130-450); RED BLOOD COUNT 4.68 10^6/uL (4.70-6.10); RED CELL DISTRIBUTION WIDTH 25.2 % (12.0-15.0); WHITE BLOOD COUNT 33.9 x10^3/uL (4.8-10.8)
[2021-02-28 12:41] LABS: SLIDE REVIEW? Indicated
[2021-02-28 12:42] LABS: ABNORMAL LYMPHS % (MANUAL) 0 %
[2021-02-28 12:49] LABS: INR 1.5 (0.8-1.2); PT - PROTHROMBIN TIME 16.3 secs (9.9-12.6)
[2021-02-28 12:56] LABS: BAND NEUTROPHILS % (MANUAL) 3 %; DIFFERENTIAL COMMENT MANUAL DIFFERENTIAL; LYMPHOCYTES # (MANUAL) 0.3 10^3/uL (1.5-3.5); LYMPHOCYTES % (MANUAL) 1 %; MONOCYTES # (MANUAL) 1.7 10^3/uL (0.0-1.0); NEUTROPHILS # (MANUAL) 31.9 10^3/uL (1.5-6.6); PARTIAL THROMBOPLASTIN TIME 30.2 secs (24.9-33.3)
--- NOTE | 2021-02-28 13:08 | XRAY Report ---
PROCEDURE: Chest 1 View X-Ray INDICATIONS: cough TECHNIQUE: One view of the chest was acquired. COMPARISON: None FINDINGS: Surgical changes and devices: None. Lungs and pleura: No pleural effusions or pneumothorax. Lungs are clear. Mediastinum: Mediastinal contours appear normal. Heart size is normal. Bones and chest wall: No suspicious bony lesions. Overlying soft tissues appear unremarkable. IMPRESSION: No acute pulmonary process. Reviewed by: Flor Villa MD on 02/28/2021 1:07 PM PDT Approved by: Flor Villa MD on 02/28/2021 1:07 PM PDT Station ID: [id number]
[2021-02-28] MEDS ORDERED: LACTULOSE 10 GM /15 ML UDC PO STA (13:11)
[2021-02-28 13:14] LABS: THYROID STIMULATING HORMONE 2.35 uIU/mL (0.34-5.60)
[2021-02-28 13:16] LABS: FREE T4 (FREE THYROXINE) 0.69 ng/dL (0.58-1.64)
[2021-02-28 13:22] LABS: ACETAMINOPHEN < 10 ug/mL (10-30); ALBUMIN 2.8 g/dL (3.2-5.5); ALBUMIN/GLOBULIN RATIO 0.6 (1.0-2.2); ALKALINE PHOSPHATASE 149 IU/L (42-121); ALT ALANINE AMINOTRANSFERASE 20 IU/L (10-60); AST ASPARTATE AMINOTRANSFERASE 24 IU/L (10-42); BILIRUBIN,TOTAL 4.8 mg/dL (0.2-1.0); CALCIUM 8.2 mg/dL (8.5-10.3); CARBON DIOXIDE - CO2 13 mmol/L (21-32); CHLORIDE 94 mmol/L (101-111); CK- CREATINE KINASE 36 IU/L (22-269); ETOH - ETHANOL < 5.0 mg/dL; GFR - MDRD 5 (>89); GLUCOSE 137 mg/dL (70-100); LIPASE 246 U/L (22-51); POTASSIUM 5.2 mmol/L (3.5-5.0); SALICYLATE < 6.0 mg/dL; SODIUM 133 mmol/L (135-145); TOTAL PROTEIN 7.2 g/dL (6.7-8.2)
[2021-02-28 13:24] LABS: BUN - BLOOD UREA NITROGEN 202 mg/dL (6-20)
[2021-02-28 13:25] LABS: CREATININE 10.3 mg/dL (0.6-1.2)
--- NOTE | 2021-02-28 13:28 | CT Report ---
PROCEDURE: HEAD WO INDICATIONS: altered, found down TECHNIQUE: Noncontrast 4.5 mm thick angled axial sections acquired from the foramen magnum to the vertex. For r adiation dose reduction, the following was used: automated exposure control, adjustment of mA and/or kV according to patient size. COMPARISON: Head CT 05/25/2014.. FINDINGS: Image quality: Excellent. CSF spaces: Basal cisterns are patent. No extra-axial fluid collections. Ventricles are normal in size and shape. Brain: No midline shift. No intracranial masses or hemorrhage. Midline falx calcification. Nichols-wh ite matter interface is normal. Skull and face: Calvarium and visualized facial bones are intact, without suspicious lesions. Sinuses: Visualized sinuses and mastoids are clear. IMPRESSION: No acute intracranial abnormality. Reviewed by: Hank Mills MD on 02/28/2021 12:27 PM CARMEN Approved by: Hank Mills MD on 02/28/2021 12:27 PM CARMEN Station ID: [id number]
--- NOTE | 2021-02-28 13:32 | CT Report ---
PROCEDURE: CERVICAL SPINE WO INDICATIONS: altered, found down TECHNIQUE: Noncontrast 3 mm thick sections acquired from the skull base to the T4 level. Sagittal and coronal r eformats were then constructed. For radiation dose reduction, the following was used: automated exp osure control, adjustment of mA and/or kV according to patient size. COMPARISON: CT cervical spine 05/25/2014.. FINDINGS: Image quality: Excellent. Bones: No fractures or dislocations. Severe degenerative change in the cervical spine which is progr essed compared to 2013. Visualized superior ribs are intact. Soft tissues: Prevertebral soft tissues are normal in thickness. Moderate carotid bulb atherosclerot ic calcifications. No paravertebral hematomas. No apical pneumothoraces. IMPRESSION: No acute osseous abnormality. Severe degenerative change of the cervical spine. Reviewed by: Hank Mills MD on 02/28/2021 12:31 PM CARMEN Approved by: Hank Mills MD on 02/28/2021 12:31 PM CARMEN Station ID: [id number]
[2021-02-28] MEDS ORDERED: PIPERACILLIN/TAZOBACTAM 3.375 GM in SODIUM CHLORIDE 0.9% MINIBAG 100 ML IV STA ×2 (13:46→21:31)
[2021-02-28] MEDS ORDERED: VANCOMYCIN INJ 1 GM in SODIUM CHLORIDE 0.9% 500 ML IV STA (13:47)
[2021-02-28] MEDS ORDERED: VANCOMYCIN INJ 1 GM, VANCOMYCIN INJ 500 MG in SODIUM CHLORIDE 0.9% 500 ML IV STA (13:53)
[2021-02-28 13:56] LABS: BILIRUBIN,URINE NEGATIVE (NEGATIVE); GLUCOSE, URINE (UA) NEGATIVE (NEGATIVE); KETONES,URINE (UA) NEGATIVE (NEGATIVE); LEUKOCYTE ESTERASE, URINE MODERATE (NEGATIVE); NITRITE,URINE NEGATIVE (NEGATIVE); OCCULT BLOOD,URINE LARGE (NEGATIVE); PROTEIN,URINE NEGATIVE (NEGATIVE); UROBILINOGEN,URINE 1 (NORMAL) E.U./dL (NORMAL)
[2021-02-28 13:58] LABS: CLARITY,URINE CLOUDY (CLEAR)
[2021-02-28 14:27] LABS: BACTERIA,URINE Few /HPF (None Seen); SQUAMOUS EPITHELIAL CELL,UR NONE SEEN (<= Few); WBC,URINE >25 /HPF (0-3)
[2021-02-28] MEDS ORDERED: NYSTATIN CREAM 15 GM TUBE TOP STA ×2 (14:38→19:48)
[2021-02-28 15:18] LABS: MUDS CUTOFF CONCENTRATIONS CUTOFF CONC BELOW:
[2021-02-28] MEDS ORDERED: diltiaZEM INJ 5 MG/ML VIAL IVP STA (15:23)
[2021-02-28] MEDS ORDERED: LORazepam 2 MG/ML VIAL IVP STA ×3 (15:23→20:46)
[2021-02-28 15:36] LABS: AMPHETAMINE SCREEN,URINE NEGATIVE (NEGATIVE); BARBITURATE SCREEN,UR NEGATIVE (NEGATIVE); BENZODIAZEPINES SCREEN, URINE NEGATIVE (NEGATIVE); COCAINE SCREEN URINE NEGATIVE (NEGATIVE); METHADONE SCREEN, URINE NEGATIVE (NEGATIVE); METHAMPHETAMINES SCREEN, URINE NEGATIVE (NEGATIVE); OPIATE SCREEN, URINE NEGATIVE (NEGATIVE); OXYCODONE SCREEN, URINE NEGATIVE (NEGATIVE); PROPOXYPHENE SCREEN, URINE NEGATIVE (NEGATIVE); THC CANNABINOID SCREEN, URINE NEGATIVE (NEGATIVE); TRICYCLIC ANTIDEPRESSANT,URINE NEGATIVE (NEGATIVE)
[2021-02-28 16:27] LABS: B. PARAPERTUSSIS- RESP PCR PAN NOT DETECTED; B. PERTUSSIS- RESP PCR PANEL NOT DETECTED; C. PNEUMONIAE- RESP PCR PANEL NOT DETECTED; CORONAVIRUS 229E-RESP PCR NOT DETECTED; CORONAVIRUS HKU1-RESP PCR NOT DETECTED; CORONAVIRUS NL63-RESP PCR NOT DETECTED; CORONAVIRUS OC43-RESP PCR NOT DETECTED; HUMAN METAPNEUMOVIRUS NOT DETECTED; INFLUENZA A- RESP PCR PANEL NOT DETECTED; INFLUENZA B - RESP PCR PANEL NOT DETECTED; M. PNEUMONIAE- RESP PCR PANEL NOT DETECTED; PARAINFLUENZA VIRUS 1 NOT DETECTED; PARAINFLUENZA VIRUS 2 NOT DETECTED; PARAINFLUENZA VIRUS 3 NOT DETECTED; PARAINFLUENZA VIRUS 4 NOT DETECTED; RHINOVIRUS/ENTEROVIRUS NOT DETECTED; RSV- RESP PCR PANEL NOT DETECTED; SARS-CoV-2 -RESP PCR PANEL NOT DETECTED
[2021-02-28] MEDS ORDERED: DILTIAZEM 125 MG in DEXTROSE 5% 100 ML IV STA (16:50)
[2021-02-28] MEDS ORDERED: SODIUM CHLORIDE 0.9% 1,000 ML IV STA ×3 (17:41→21:55)
[2021-02-28 18:23] LABS: CALCIUM 7.7 mg/dL (8.5-10.3); POTASSIUM 4.5 mmol/L (3.5-5.0)
[2021-02-28 18:26] LABS: CREATININE 8.7 mg/dL (0.6-1.2)
[2021-02-28] MEDS: ELECTROLYTE-A SOLUTION 1,000 ML IV SCH (19:33)
[2021-02-28] MEDS ORDERED: MINERAL OIL/PETROLAT OPHTH OINT EACHEYE STA (19:48)
[2021-02-28] MEDS ORDERED: ZINC OXIDE 20% OINT 30 GM TUBE TOP STA (19:52)
[2021-02-28] MEDS ORDERED: CALAMINE/ZINC OXIDE 177 ML BOTTLE TOP STA (19:53)
[2021-02-28] MEDS ORDERED: ESMOLOL 2.5 GM/250 ML BAG IV STA (21:43)
[2021-02-28 21:48] LABS: BASOPHILS # (AUTO) 0.1 10^3/uL (0.0-0.1); BASOPHILS % (AUTO) 0.2 %; EOSINOPHILS % (AUTO) 0.2 %; HCT - HEMATOCRIT 29.5 % (42.0-52.0); HGB - HEMOGLOBIN 9.9 g/dL (14.0-18.0); LYMPHOCYTES # (AUTO) 0.6 10^3/uL (1.5-3.5); LYMPHOCYTES % (AUTO) 2.1 %; MEAN CORPUSCULAR HEMOGLOBIN 23.6 pg (27.0-31.0); MEAN CORPUSCULAR HGB CONC 33.6 g/dL (32.0-36.0); MEAN CORPUSCULAR VOLUME 70.4 fL (80.0-94.0); MEAN PLATELET VOLUME 10.3 fL (7.4-11.4); MONOCYTES # (AUTO) 2.1 10^3/uL (0.0-1.0); MONOCYTES % (AUTO) 8.2 %; NEUTROPHILS # (AUTO) 22.7 10^3/uL (1.5-6.6); NEUTROPHILS % (AUTO) 88.4 %; PLT - PLATELET COUNT 284 10^3/uL (130-450); RED BLOOD COUNT 4.19 10^6/uL (4.70-6.10); RED CELL DISTRIBUTION WIDTH 24.7 % (12.0-15.0); WHITE BLOOD COUNT 25.7 x10^3/uL (4.8-10.8)
[2021-02-28 21:51] LABS: SLIDE REVIEW? Indicated
[2021-02-28] MEDS ORDERED: SODIUM BICARBONATE 150 MEQ in DEXTROSE 5% 1,000 ML IV STA (21:54)
[2021-02-28] MEDS ORDERED: THIAMINE INJ 500 MG in SODIUM CHLORIDE 0.9% 50 ML IV STA (21:57)
--- NOTE | 2021-02-28 22:06 | ED Physician Documentation ---
ED Addendum - Addendum Addendum: 02/28/21 22:04 70-year-old alcoholic male found down in his home this morning is endorsed to me by Dr. Da Silva to care for the patient at shift change. The patient is encephalopathic tachycardic hypotensive and appears to have gone through alcohol withdrawal in his home at an unknown time and for an unknown length of time he was down. 02/28/21 23:30 I have assumed care of this patient with hepatic encephalopathy and tachycardia who is in on an esmolol drip at 50 mcg/kg/min and he was unconscious. He is receiving supportive care here in the emergency department, and we are awaiting a transfer to a center capable of handling the degree of renal failure seen, with nowhere to transfer the patient. He has received a banana bag and Plasma- Lyte and saline. At 2200 I measured his IVC at 0.83 cm and an additional fluid is administered. At 2330 I have remeasured his IVC at 1.17. He still has room for additional fluid and he is not making urine. He has a creatinine of 10 initially it is gone down to 8.7. His vital signs have stabilized with a pulse around 110 and a blood pressure of 96/63 and our attention is turned to treatment of the encephalopathy with rectal Lactulose. 02/28/21 23:33 03/01/21 00:41 The patient was turned, to to place the lactulose through an enema, and following this the patient converted to a sinus rhythm with a rate of 83. His esmolol drip was discontinued and his vital signs remained stable. He still has not put out adequate urine and he continues to receive additional fluid. He is on his fifth liter of fluid now. 00:42. 03/01/21 00:45 EKG: time 23:56 rate 84 sinus rhythm with borderline low voltage in extremity leads and prolonged QT interval. Since tracing done earlier the rate has decreased and the rhythm has changed to normal sinus without ischemia. 03/01/21 00:46 03/01/21 03:22 After evaluating the bladder with bedside ultrasound urine was produced. It appears there was some clot retention. The patient is making adequate urine. We had another 550 mL out. The patient's rate control was short-lived and he is back on the esmolol drip and he is getting a second lactulose enema. He has been given a total of 8mg of ativan. There is concern about whether this patient has any concern of alcohol withdrawal, we just have no history and we have been administering ativan with agitation and elevated vitals. 03/01/21 07:51 At shift change his vitals have stabilized on an esmolol drip, plasmalyte is running at 200ml/hr, and he is getting lactulose rectally every 4 hours. A bed has not become available as yet and he is on a wait list for Prov in [place]. Care is turned over to Dr. Sosa.
[2021-02-28 22:08] LABS: VBG HCO3 11.7 mmol/L (23-28); VBG OXYGEN SATURATION 93.4 % (60-80); VBG PH 7.407 (7.31-7.41); VBG PO2 75.4 mmHg (25-47); VBG TOTAL CO2 12.3 mmol/L (24-29)
[2021-02-28 22:15] LABS: MAGNESIUM 3.5 mg/dL (1.7-2.8)
[2021-02-28] MEDS ORDERED: THIAMINE 100 MG/1 ML 2 ML MDV ONE (22:16)
[2021-02-28 22:17] LABS: ALBUMIN 2.5 g/dL (3.2-5.5); ALBUMIN/GLOBULIN RATIO 0.6 (1.0-2.2); BILIRUBIN,TOTAL 4.5 mg/dL (0.2-1.0); CALCIUM 7.7 mg/dL (8.5-10.3); POTASSIUM 4.5 mmol/L (3.5-5.0); TOTAL PROTEIN 6.6 g/dL (6.7-8.2)
[2021-02-28 22:18] LABS: CREATININE 7.9 mg/dL (0.6-1.2)
[2021-02-28 22:34] LABS: DIFFERENTIAL COMMENT MANUAL=AUTO DIFF; PLATELET ESTIMATE, MANUAL NORMAL (130-450,000) (NORMAL); PLATELET MORPHOLOGY NORMAL APPEARANCE (NORMAL)
[2021-02-28] MEDS ORDERED: SODIUM BICARBONATE 8.4% 50 MEQ/50 ML VIAL ONE (23:01)
[2021-02-28] MEDS ORDERED: LACTULOSE 10 GM /15 ML UDC PR STA (23:14)
[2021-02-28 23:33] LABS: ABG HCO3 12.5 mmol/L (22.0-26.0); ABG PH 7.41 (7.35-7.45); ABG PO2 89 mmHg (80-100)
[2021-02-28 23:34] LABS: ABG BASE EXCESS -10.5 mmol/L (-2.0-3.0); ABG OXYGEN SATURATION 96 % (94-98); ABG TCO2 13.1 MMOL/L (21.0-29.0)
[2021-02-28 23:35] LABS: ABG PCO2 20 mmHg (34-45); ALLEN TEST POSITIVE
[2021-03-01] MEDS: ELECTROLYTE-A SOLUTION 1,000 ML IV SCH ×6 (01:00→17:32)
[2021-03-01] MEDS ORDERED: LORazepam 2 MG/ML VIAL IVP STA ×2 (01:48→20:34)
[2021-03-01] MEDS ORDERED: PIPERACILLIN/TAZOBACTAM 3.375 GM in SODIUM CHLORIDE 0.9% MINIBAG 100 ML IV SCH (02:00)
[2021-03-01] MEDS ORDERED: SODIUM CHLORIDE 0.9% 1,000 ML IV STA ×2 (02:24→04:42)
[2021-03-01 02:48] LABS: BASOPHILS % (AUTO) 0.2 %; EOSINOPHILS % (AUTO) 0.1 %; HCT - HEMATOCRIT 25.9 % (42.0-52.0); HGB - HEMOGLOBIN 8.6 g/dL (14.0-18.0); LYMPHOCYTES # (AUTO) 0.4 10^3/uL (1.5-3.5); LYMPHOCYTES % (AUTO) 1.9 %; MEAN CORPUSCULAR HEMOGLOBIN 23.6 pg (27.0-31.0); MEAN CORPUSCULAR HGB CONC 33.2 g/dL (32.0-36.0); MONOCYTES # (AUTO) 1.5 10^3/uL (0.0-1.0); MONOCYTES % (AUTO) 7.5 %; NEUTROPHILS # (AUTO) 17.8 10^3/uL (1.5-6.6); NEUTROPHILS % (AUTO) 89.6 %; PLT - PLATELET COUNT 184 10^3/uL (130-450); RED BLOOD COUNT 3.65 10^6/uL (4.70-6.10); RED CELL DISTRIBUTION WIDTH 23.9 % (12.0-15.0); WHITE BLOOD COUNT 19.8 x10^3/uL (4.8-10.8)
[2021-03-01 02:50] LABS: SLIDE REVIEW? Indicated
[2021-03-01] MEDS ORDERED: LACTULOSE 10 GM /15 ML UDC PR STA ×2 (03:12→07:38)
[2021-03-01] MEDS ORDERED: ESMOLOL 100 MG/10 ML VIAL IVP STA (03:16)
[2021-03-01 03:17] LABS: CALCIUM 6.8 mg/dL (8.5-10.3); POTASSIUM 3.8 mmol/L (3.5-5.0)
[2021-03-01 03:19] LABS: CREATININE 7.4 mg/dL (0.6-1.2)
[2021-03-01 03:22] LABS: PLATELET ESTIMATE, MANUAL NORMAL (130-450,000) (NORMAL)
[2021-03-01] MEDS ORDERED: CALCIUM GLUCONATE 1000 MG/10 ML VIAL IVP STA (03:27)
--- NOTE | 2021-03-01 08:46 | ED Physician Documentation ---
ED Addendum - Addendum Addendum: 03/01/21 08:44 Nursing staff concerned about the patient's respiratory status. At his bedside his pulse oximetry is 96% on 2 L of O2. Heart rates in the 90s. Patient has a rattling sounds in the back of his throat and his mouth is very dry.Are small but reactive. He did not respond to any verbal stimuli tactile stimuli elicited coughing that sounded very congested but he still would not make eye contact. I came back and reviewed his chart and saw that he has had a head CT that was negative. Chest x-ray did not show any pneumonia. He appears to be septic has received Zosyn and Vanc. We have no CODE STATUS on file. Will ask nursing staff to do some suctioning just to clear the mucus and will continue to monitor for respiratory failure.
[2021-03-01] MEDS: PIPERACILLIN/TAZOBACTAM 3.375 GM in SODIUM CHLORIDE 0.9% MINIBAG 100 ML IV SCH ×2 (09:11→20:22)
[2021-03-01 11:34] LABS: BASOPHILS % (AUTO) 0.1 %; EOSINOPHILS # (AUTO) 0.1 10^3/uL (0.0-0.7); EOSINOPHILS % (AUTO) 0.3 %; HCT - HEMATOCRIT 27.1 % (42.0-52.0); HGB - HEMOGLOBIN 8.8 g/dL (14.0-18.0); LYMPHOCYTES # (AUTO) 0.5 10^3/uL (1.5-3.5); LYMPHOCYTES % (AUTO) 2.7 %; MEAN CORPUSCULAR HEMOGLOBIN 23.6 pg (27.0-31.0); MEAN CORPUSCULAR HGB CONC 32.5 g/dL (32.0-36.0); MEAN CORPUSCULAR VOLUME 72.7 fL (80.0-94.0); MEAN PLATELET VOLUME 10.1 fL (7.4-11.4); MONOCYTES # (AUTO) 1.7 10^3/uL (0.0-1.0); MONOCYTES % (AUTO) 10.1 %; NEUTROPHILS # (AUTO) 14.5 10^3/uL (1.5-6.6); NEUTROPHILS % (AUTO) 85.6 %; PLT - PLATELET COUNT 183 10^3/uL (130-450); RED BLOOD COUNT 3.73 10^6/uL (4.70-6.10); RED CELL DISTRIBUTION WIDTH 24.9 % (12.0-15.0)
[2021-03-01 11:36] LABS: RBC MORPHOLOGY (MULTIPLE) 4+ ANISOCYTOSIS (NORMAL); SLIDE REVIEW? Indicated
[2021-03-01 11:45] LABS: CALCIUM 7.3 mg/dL (8.5-10.3); CREATININE 5.8 mg/dL (0.6-1.2); POTASSIUM 3.6 mmol/L (3.5-5.0)
[2021-03-01] MEDS ORDERED: IPRATROPIUM/ALBUTEROL 3 ML NEB INH STA (13:15)
--- NOTE | 2021-03-01 17:09 | ED Physician Documentation ---
ED Addendum - Addendum Addendum: 03/01/21 17:08 Patient's blood work continues to improve, but he continues to have altered mental status. Heart rate is controlled, blood pressure appears stabilized. His creatinine is improved from 10 down to 5. His uremia is improving. He has been continued on antibiotics. Was able to get a hold of his daughter, Heide, she states that his goals of care would be mostly comfort, he would not want ventilators and CPR. Discussed the case with Dr. Chowdhury, hospitalist who accept s to the ICU here. This document was made in part using voice recognition software. While efforts are made to proofread this document, sound alike and grammatical errors may occur. Departure - Departure Disposition: 66 [facility] DC/Xfer Clinical Impression: Uremia, Hyperammonemia, Encephalopathy, End stage liver disease, Hepatic encephalopathy, Jazz infection of genital region, Alcohol abuse Acute renal failure Qualifiers: Acute renal failure type: unspecified Qualified Code(s): N17.9 - Acute kidney failure, unspecified Altered mental status Qualifiers: Altered mental status type: disorientation Qualified Code(s): R41.0 - Disorientation, unspecified UTI (urinary tract infection) Qualifiers: Urinary tract infection type: acute cystitis Hematuria presence: without hematuria Qualified Code(s): N30.00 - Acute cystitis without hematuria Condition: Stable
[2021-03-01] MEDS ORDERED: ONDANSETRON 4 MG/2 ML VIAL IVP PRN (21:18)
[2021-03-01] MEDS ORDERED: oxyCODONE 5 MG TABLET PO PRN (21:18)
[2021-03-01] MEDS ORDERED: LORazepam 1 MG TABLET PO PRN (21:22)
[2021-03-01] MEDS ORDERED: DEXTROSE 5%-0.45% NACL 1,000 ML IV SCH (22:00)
[2021-03-01] MEDS ORDERED: FAMOTIDINE 20 MG TABLET PO SCH (22:00)
[2021-03-01] MEDS ORDERED: rifAXIMin 550 MG TABLET PO SCH (22:00)
--- NOTE | 2021-03-01 22:28 | HISTORY & PHYSICAL EXAMINATION ---
History and Physical - History and Physical Chief complaint: Altered mental status Source of history: Signout from daytime hospitalist and ER, medical record review History of present illness: The patient is a 70-year-old chronically ill white male with past medical h istory of alcoholism to the level of debility anmd end-stage liver disease. He presented to the ER via EMS after he was found down at a local hotel. He was critically ill, obtunded and could not meaningfully interact. Therefore, the history was obtained from the ER and per medical record review. Per ER physician Dr. Da Silva's initial report: "Patient is a 70-year-old male brought in by EMS today after he was found down at a hotel that he has been living at. He has a longstanding history of alcoholism and cirrhosis. Unclear if he has been taking his medications or not. EMS states he was covered in feces and very confused. Patient states that he has no pain. He states that he has been sick. He is unable to give any further information about what he means by "sick". No fevers. No chills. He denies any diarrhea or vomiting. He denies any trauma." Patient could not interact, he did not have advanced directive or available medical records and no family member was available. Therefore he was evaluated and treated according to full CODE STATUS. As he had critical illness and severe uremia/renal failure, transfer to higher level of care was initiated. In the meantime the patient stayed in the ER received IV hydration and multiple other medications, as a result, data-evans he improved however remained obtunded and critically ill otherwise. He stayed in the ER for more than 24 hours. During this time attempts were made to reach family members and finally ER physician could reach the patient's next of kin/daughter. The daughter reported that the patient should not receive resuscitation, aggressive care and he should not be transferred for higher level of care. Per the daughter the patient would never consider cardiopulmonary resuscitation, dialysis or any aggressive care. As she described the patient's main concern is drinking alcohol until he would pass out and when he improves enough to drink again he repeats the cycle. As it was clearly determined that the CODE STATUS is DO NOT RESUSCITATE with limited interventions more like comfort focused care, the patient is getting admitted to [facility]. Due to his high care needs ICU admission is initiated. Regarding ER work-up, pertinent results are listed below. Past medical history: Chronic alcoholism End-stage liver disease Alcoholic dementia Hypertension Anemia Outpatient medications: Unknown whether the patient took outpatient medications, his past medication list includes propranolol, Protonix, metoprolol, lactulose, Lasix, Aldactone, folic acid. Family history:The patient cannot provide due to critical illness and altered mental status. Social history and functional status: Patient could not provide, per daughter's report he is a chronic alcoholic. He was admitted from a hotel. CODE STATUS: DNR; no escalation of care. Review of symptoms: Patient was obtunded, critically ill could not interact. He was found down obtunded, no review could be obtained. Physical exam: Vital Signs (72 hours) 02/28/21 02/28/21 02/28/21 11:45 13:55 13:58 Temperature 37 C Heart Rate 131 H 104 H 98 Respiratory 22 20 21 Rate Blood Pressure 144/75 H 131/46 H 131/46 H O2 Saturation 958 H 99 90 L 02/28/21 02/28/21 02/28/21 15:00 16:13 16:29 Temperature Heart Rate 160 H 141 H 169 H Respiratory 18 17 23 Rate Blood Pressure 129/62 119/56 L 119/56 L O2 Saturation 98 95 96 03/01/21 03/01/21 03/01/21 09:05 09:30 10:00 Temperature 36.9 C Heart Rate 94 85 80 Respiratory 26 H 16 19 Rate Blood Pressure 135/78 H 109/97 H 96/46 L O2 Saturation 96 96 97 03/01/21 03/01/21 03/01/21 19:36 20:00 21:38 Temperature Heart Rate 105 H 93 108 H Respiratory 25 H 14 24 Rate Blood Pressure 171/62 H 171/62 H 130/68 O2 Saturation 97 97 98 Intake & Output 02/26/21 02/27/21 02/28/21 03/01/21 23:59 23:59 23:59 23:59 Intake Total 3748.268 5248.599 Output Total 900 4265 Balance 2848.268 983.599 General: Well developed acutely and chronically ill-appearing male obtunded, cannot meaningfully interact, audibly wheezes HEENT: Dry oral mucosa Respiratory: Audible wheezes above all lung lopez with reasonably good air entry throughout, respiratory rate in the mid 20s CVS: S1, S2, regular heart rate in the high 80s, no obvious murmur Abdomen: Largely distended abdomen with hypoactive bowel tones, no rebound tenderness Psych: Lethargic, confused, uncomfortable and fidgety Neuro: Moves all 4 extremities, appears with global encephalopathy no focal lateralizing sign Lymph: Pitting edema Skin: Jaundice Musculoskeltal: Large abdomen, no obvious injury Diagnostic work-up: Microbiology 02/28/21 13:44 Blood Culture - Preliminary Blood - Left Arm NO GROWTH AFTER 1 DAY 02/28/21 13:03 Urine Culture - Preliminary Urine,Clean Catch CULTURE IN PROGRESS. RESULTS TO FOLLOW. 02/28/21 14:05 Blood Culture (PCR) - Final Blood - Right Hand 02/28/21 14:05 Blood Culture - Preliminary Blood - Right Hand Laboratory Tests 02/28/21 02/28/21 02/28/21 12:34 12:34 12:34 WBC 33.9 H RBC 4.68 L Hgb 11.0 L Hct 33.4 L MCV 71.4 L MCH 23.5 L MCHC 32.9 RDW 25.2 H Plt Count 333 MPV 10.5 Neut # (Auto) Not Reportable Lymph # (Auto) Not Reportable Whitman # (Auto) Not Reportable Eos # (Auto) Not Reportable Baso # (Auto) Not Reportable Absolute Nucleated RBC Not Reportable Total Counted 100 Band Neuts % (Manual) 3 Abnorm Lymph % (Manual) 0 Nucleated RBC % Not Reportable Neutrophils # (Manual) 31.9 H Lymphocytes # (Manual) 0.3 L Monocytes # (Manual) 1.7 H Eosinophils # (Manual) 0.0 Basophils # (Manual) 0.0 Differential Comment MANUAL DIFFERENTIAL Manual Slide Review Indicated Platelet Estimate Platelet Morphology RBC Morph Micro Appear PT INR APTT Bld Gas Analysis Time Sample Site ABG pH ABG pCO2 ABG pO2 ABG HCO3 ABG Total CO2 ABG O2 Saturation ABG Base Excess Thanh Test VBG pH VBG pCO2 VBG pO2 VBG HCO3 VBG Total CO2 VBG O2 Saturation VBG Base Excess O2 Delivery Device FiO2 Sodium 133 L Potassium 5.2 H Chloride 94 L Carbon Dioxide 13 L Anion Gap 26.0 H BUN 202 H* Creatinine 10.3 H* Estimated GFR (MDRD) 5 L Glucose 137 H Lactic Acid Calcium 8.2 L Phosphorus Magnesium Total Bilirubin 4.8 H AST 24 ALT 20 Alkaline Phosphatase 149 H Ammonia Total Creatine Kinase 36 Troponin I High Sens B-Natriuretic Peptide Total Protein 7.2 Albumin 2.8 L Globulin 4.4 H Albumin/Globulin Ratio 0.6 L Lipase 246 H TSH 2.35 Free T4 0.69 Urine Color Urine Clarity Urine pH Ur Specific Cut Off Urine Protein Urine Glucose (UA) Urine Ketones Urine Occult Blood Urine Nitrite Urine Bilirubin Urine Urobilinogen Ur Leukocyte Esterase Urine RBC Urine WBC Ur Squamous Epith Cells Urine Bacteria Ur Microscopic Review Urine Culture Comments Nasal Adenovirus (PCR) Nasal B. parapertussis DNA (PCR) Nasal Coronavir 229E PCR Nasal Coronavir HKU1 PCR Nasal Coronavir NL63 PCR Nasal Coronavir OC43 PCR Nasal Enterovir/Rhinovir PCR Nasal Influenza B PCR Nasal Influenza A PCR Nasal Parainfluen 1 PCR Nasal Parainfluen 2 PCR Nasal Parainfluen 3 PCR Nasal Parainfluen 4 PCR Nasal RSV (PCR) Nasal B.pertussis DNA PCR Nasal C.pneumoniae (PCR) Gregory Human Metapneumo PCR Nasal M.pneumoniae (PCR) Nasal SARS-CoV-2 (PCR) Salicylates < 6.0 Urine Opiates Screen Ur Oxycodone Screen Urine Methadone Screen Ur Propoxyphene Screen Acetaminophen < 10 L Ur Barbiturates Screen Ur Tricyclics Screen Ur Phencyclidine Scrn Ur Amphetamine Screen U Methamphetamines Scrn U Benzodiazepines Scrn Urine Cocaine Screen U Cannabinoids Screen Ethyl Alcohol < 5.0 02/28/21 02/28/21 02/28/21 12:34 12:34 13:03 WBC RBC Hgb Hct MCV MCH MCHC RDW Plt Count MPV Neut # (Auto) Lymph # (Auto) Whitman # (Auto) Eos # (Auto) Baso # (Auto) Absolute Nucleated RBC Total Counted Band Neuts % (Manual) Abnorm Lymph % (Manual) Nucleated RBC % Neutrophils # (Manual) Lymphocytes # (Manual) Monocytes # (Manual) Eosinophils # (Manual) Basophils # (Manual) Differential Comment Manual Slide Review Platelet Estimate Platelet Morphology RBC Morph Micro Appear PT 16.3 H INR 1.5 H APTT 30.2 Bld Gas Analysis Time Sample Site ABG pH ABG pCO2 ABG pO2 ABG HCO3 ABG Total CO2 ABG O2 Saturation ABG Base Excess Thanh Test VBG pH VBG pCO2 VBG pO2 VBG HCO3 VBG Total CO2 VBG O2 Saturation VBG Base Excess O2 Delivery Device FiO2 Sodium Potassium Chloride Carbon Dioxide Anion Gap BUN Creatinine Estimated GFR (MDRD) Glucose Lactic Acid Calcium Phosphorus Magnesium Total Bilirubin AST ALT Alkaline Phosphatase Ammonia 167.0 H* Total Creatine Kinase Troponin I High Sens B-Natriuretic Peptide Total Protein Albumin Globulin Albumin/Globulin Ratio Lipase TSH Free T4 Urine Color DARK YELLOW Urine Clarity CLOUDY Urine pH 6.0 Ur Specific Cut Off 1.015 Urine Protein NEGATIVE Urine Glucose (UA) NEGATIVE Urine Ketones NEGATIVE Urine Occult Blood LARGE H Urine Nitrite NEGATIVE Urine Bilirubin NEGATIVE Urine Urobilinogen 1 (NORMAL) Ur Leukocyte Esterase MODERATE H Urine RBC 6-10 H Urine WBC >25 H Ur Squamous Epith Cells NONE SEEN Urine Bacteria Few Ur Microscopic Review INDICATED Urine Culture Comments INDICATED Nasal Adenovirus (PCR) Nasal B. parapertussis DNA (PCR) Nasal Coronavir 229E PCR Nasal Coronavir HKU1 PCR Nasal Coronavir NL63 PCR Nasal Coronavir OC43 PCR Nasal Enterovir/Rhinovir PCR Nasal Influenza B PCR Nasal Influenza A PCR Nasal Parainfluen 1 PCR Nasal Parainfluen 2 PCR Nasal Parainfluen 3 PCR Nasal Parainfluen 4 PCR Nasal RSV (PCR) Nasal B.pertussis DNA PCR Nasal C.pneumoniae (PCR) Gregory Human Metapneumo PCR Nasal M.pneumoniae (PCR) Nasal SARS-CoV-2 (PCR) Salicylates Urine Opiates Screen Ur Oxycodone Screen Urine Methadone Screen Ur Propoxyphene Screen Acetaminophen Ur Barbiturates Screen Ur Tricyclics Screen Ur Phencyclidine Scrn Ur Amphetamine Screen U Methamphetamines Scrn U Benzodiazepines Scrn Urine Cocaine Screen U Cannabinoids Screen Ethyl Alcohol 02/28/21 02/28/21 02/28/21 13:03 13:44 14:05 WBC RBC Hgb Hct MCV MCH MCHC RDW Plt Count MPV Neut # (Auto) Lymph # (Auto) Whitman # (Auto) Eos # (Auto) Baso # (Auto) Absolute Nucleated RBC Total Counted Band Neuts % (Manual) Abnorm Lymph % (Manual) Nucleated RBC % Neutrophils # (Manual) Lymphocytes # (Manual) Monocytes # (Manual) Eosinophils # (Manual) Basophils # (Manual) Differential Comment Manual Slide Review Platelet Estimate Platelet Morphology RBC Morph Micro Appear PT INR APTT Bld Gas Analysis Time Sample Site ABG pH ABG pCO2 ABG pO2 ABG HCO3 ABG Total CO2 ABG O2 Saturation ABG Base Excess Thanh Test VBG pH VBG pCO2 VBG pO2 VBG HCO3 VBG Total CO2 VBG O2 Saturation VBG Base Excess O2 Delivery Device FiO2 Sodium Potassium Chloride Carbon Dioxide Anion Gap BUN Creatinine Estimated GFR (MDRD) Glucose Lactic Acid 3.1 H* Calcium Phosphorus Magnesium Total Bilirubin AST ALT Alkaline Phosphatase Ammonia Total Creatine Kinase Troponin I High Sens B-Natriuretic Peptide Total Protein Albumin Globulin Albumin/Globulin Ratio Lipase TSH Free T4 Urine Color Urine Clarity Urine pH Ur Specific Cut Off Urine Protein Urine Glucose (UA) Urine Ketones Urine Occult Blood Urine Nitrite Urine Bilirubin Urine Urobilinogen Ur Leukocyte Esterase Urine RBC Urine WBC Ur Squamous Epith Cells Urine Bacteria Ur Microscopic Review Urine Culture Comments Nasal Adenovirus (PCR) NOT DETECTED Nasal B. parapertussis DNA (PCR) NOT DETECTED Nasal Coronavir 229E PCR NOT DETECTED Nasal Coronavir HKU1 PCR NOT DETECTED Nasal Coronavir NL63 PCR NOT DETECTED Nasal Coronavir OC43 PCR NOT DETECTED Nasal Enterovir/Rhinovir PCR NOT DETECTED Nasal Influenza B PCR NOT DETECTED Nasal Influenza A PCR NOT DETECTED Nasal Parainfluen 1 PCR NOT DETECTED Nasal Parainfluen 2 PCR NOT DETECTED Nasal Parainfluen 3 PCR NOT DETECTED Nasal Parainfluen 4 PCR NOT DETECTED Nasal RSV (PCR) NOT DETECTED Nasal B.pertussis DNA PCR NOT DETECTED Nasal C.pneumoniae (PCR) NOT DETECTED Gregory Human Metapneumo PCR NOT DETECTED Nasal M.pneumoniae (PCR) NOT DETECTED Nasal SARS-CoV-2 (PCR) NOT DETECTED Salicylates Urine Opiates Screen NEGATIVE Ur Oxycodone Screen NEGATIVE Urine Methadone Screen NEGATIVE Ur Propoxyphene Screen NEGATIVE Acetaminophen Ur Barbiturates Screen NEGATIVE Ur Tricyclics Screen NEGATIVE Ur Phencyclidine Scrn NEGATIVE Ur Amphetamine Screen NEGATIVE U Methamphetamines Scrn NEGATIVE U Benzodiazepines Scrn NEGATIVE Urine Cocaine Screen NEGATIVE U Cannabinoids Screen NEGATIVE Ethyl Alcohol Troponin slightly above reference range EKG: One abnormal EKG with probable A. fib, another EKG with right bundle branch block and, sinus rhythm; nonspecific ST abnormalities, no acute ischemic sign. Imaging reviewed per electronic medical record CT head showed no acute intracranial abnormality. CT scan of the cervical spine showed degenerative disease but no acute abnormality. Chest x-ray showed no acute cardiopulmonary disease. Assessment and plan: Active issues/diagnoses Multiorgan failure including renal, hepatic, respiratory and encephalopathy Encephalopathy /multifactorial -Hepatic encephalopathy with ammonia above 160 -Probable sepsis/septic encephalopathy -Metabolic encephalopathy secondary to uremia and liver failure -Alcoholism/withdrawal -Ruled out for stroke or acute intracranial normality with negative CT scan of the brain Severe acute renal failure/uremia/ multifactorial -Obtunded chronic alcoholic/dehydration -Outpatient diuretics including Lasix and Aldactone -Hepatorenal syndrome with end-stage liver disease -Could have obstructive nephropathy will need to be ruled out with abdominal ultrasound/notably has hematuria -Sepsis/vasodilatory volume distribution could contribute -Will need to be ruled out for low cardiac output/CHF, has risk for dilated cardiomyopathy secondary to chronic alcoholism Chronic alcoholism/ESLdx/Cirrhosis End-stage liver disease with both physical and laboratory stigmata of cirrhosis including coagulopathy, anemia, hypoalbuminemia, distended abdomen/ascites, jaundice, dilated superficial abdominal veins Acute Hypoxemic respiratory failure Initially required nonrebreather mask, subsequently stabilized on supplemental oxygen, physical exam showed bronchoconstrictive picture with diffuse wheezes. High aspiration risk in the setting of encephalopathy. ABG showed no CO2 retention. Probable sepsis -Risk for SBP -High aspiration risk/pneumonia would better show on imaging after IV hydration -Urinary tract infection -As chronic alcoholic the patient has risk for intraabdominal infection -Theoretically could have appendicitis, cholecystitis, colitis, he is not a surgical candidate Anion gap metabolic acidosis/uremia/lactic acidosis Short episode of A. fib/ could be related to beta-ariana withdrawal/treated during the ER stay and resolved Hematuria Mild troponin bump in the setting of demand and critical illness CODE STATUS DO NOT RESUSCITATE with limited interventions which should focus on comfort with palliative care approach Plan and orders: Admitted as inpatient to the ICU Started on CIWA scoring and as needed Ativan coverage Lactulose enema Aspiration precautions/seizure precaution Patient will remain n.p.o. as his mental status is not appropriate to start oral intake, will continue with nursing swallow screens and speech therapy evaluation and diet will be ordered appropriately Following hydration, chest x-ray will be rechecked to look for pneumonia/aspiration For respiratory failure/wheezing/COPD/bronchoconstriction we will use nebulizers with bronchodilator and steroid Thiamine, folate, vitamin supplementation/IV hydration Continue empiric antibiotic coverage on Zosyn, added Flagyl Check MRSA screen, urine culture, blood culture, stool culture Complete abdominal ultrasound Echocardiogram Palliative approach will not escalate the care Oral care, skin care Social work and palliative care consult Attestation: I certify that the patient meets inpatient criteria based on the admission diagnosis, and the above assessment, findings and plan; he is expected to be hospitalized for more than 48 hours however to discharge or transfer to other facility within less than 96 hours. Time: 65 minutes critical care time spent
[2021-03-01] MEDS: METOPROLOL 5 MG/5 ML VIAL IVP SCH (22:49)
[2021-03-01] MEDS: SODIUM CHLORIDE FLUSH 0.9% 10 ML SYRINGE IVP SCH (22:50)
[2021-03-01] MEDS ORDERED: IPRATROPIUM/ALBUTEROL 3 ML NEB INH SCH (23:00)
[2021-03-01] MEDS ORDERED: FAMOTIDINE 20 MG/2 ML VIAL IVP SCH (23:00)
[2021-03-01] MEDS: metroNIDAZOLE 500 MG/100 ML 500 MG/100 ML BAG IV SCH (23:03)
[2021-03-02] MEDS ORDERED: chlordiazePOXIDE 25 MG CAPSULE PO SCH
[2021-03-02] MEDS: SODIUM CHLORIDE FLUSH 0.9% 10 ML SYRINGE IVP PRN (05:22)
[2021-03-02] MEDS: METOPROLOL 5 MG/5 ML VIAL IVP SCH ×3 (05:22→21:36)
[2021-03-02] MEDS: ZINC OXIDE 20% OINT 30 GM TUBE TOP PRN (05:24)
[2021-03-02] MEDS: metroNIDAZOLE 500 MG/100 ML 500 MG/100 ML BAG IV SCH ×3 (06:39→22:42)
[2021-03-02] MEDS ORDERED: IPRATROPIUM/ALBUTEROL 3 ML NEB INH PRN (06:53)
[2021-03-02] MEDS ORDERED: BUDESONIDE 0.5 MG/2 ML NEB INH SCH (07:00)
[2021-03-02 07:24] LABS: BASOPHILS % (AUTO) 0.2 %; EOSINOPHILS # (AUTO) 0.1 10^3/uL (0.0-0.7); EOSINOPHILS % (AUTO) 0.6 %; HCT - HEMATOCRIT 28.1 % (42.0-52.0); HGB - HEMOGLOBIN 8.9 g/dL (14.0-18.0); LYMPHOCYTES # (AUTO) 0.4 10^3/uL (1.5-3.5); LYMPHOCYTES % (AUTO) 2.4 %; MEAN CORPUSCULAR HEMOGLOBIN 23.7 pg (27.0-31.0); MEAN CORPUSCULAR HGB CONC 31.7 g/dL (32.0-36.0); MEAN CORPUSCULAR VOLUME 74.7 fL (80.0-94.0); MEAN PLATELET VOLUME 10.4 fL (7.4-11.4); MONOCYTES # (AUTO) 1.9 10^3/uL (0.0-1.0); MONOCYTES % (AUTO) 10.7 %; NEUTROPHILS # (AUTO) 14.9 10^3/uL (1.5-6.6); NEUTROPHILS % (AUTO) 83.7 %; PLT - PLATELET COUNT 173 10^3/uL (130-450); RED BLOOD COUNT 3.76 10^6/uL (4.70-6.10); RED CELL DISTRIBUTION WIDTH 25.3 % (12.0-15.0); WHITE BLOOD COUNT 17.8 x10^3/uL (4.8-10.8)
[2021-03-02 07:28] LABS: SLIDE REVIEW? Indicated
[2021-03-02 07:46] LABS: ALBUMIN 2.5 g/dL (3.2-5.5); ALBUMIN/GLOBULIN RATIO 0.7 (1.0-2.2); BILIRUBIN,TOTAL 4.2 mg/dL (0.2-1.0); CALCIUM 8.2 mg/dL (8.5-10.3); CREATININE 5.1 mg/dL (0.6-1.2); POTASSIUM 3.3 mmol/L (3.5-5.0); TOTAL PROTEIN 6.3 g/dL (6.7-8.2)
--- NOTE | 2021-03-02 07:51 | PROVIDER PROGRESS NOTE ---
Subjective - Prog Note Date Prog Note Date: 03/02/21 Prog Note Time: 07:48 - Subjective Subjective: he is still minimally responsive. opens eyes. he was mumbling in the ER with that MD but here he is not. Overnight stable w IVF Current Medications - Current Medications Current Medications: Active Medications Albuterol/Ipratropium (Ipratropium/Albuterol 3 Ml Neb) 3 ml INH Q4HR PRN PRN Reason: Wheezing Piperacillin Sod/Tazobactam (Sod 3.375 gm/ Sodium Chloride) 100 mls @ 25 mls/hr IV Q12H [facility] Last Infusion: 03/02/21 00:38 Dose: Infused Documented by: Dextrose/Sodium Chloride (D5.45ns) 1,000 mls @ 70 mls/hr IV .[id number] [facility] Stop: 03/02/21 16:00 Last Infusion: 03/02/21 07:00 Dose: 70 mls/hr Documented by: Thiamine HCl 100 mg/ Sodium (Chloride) 51 mls @ 100 mls/hr IV DAILY [facility] Folic Acid 1 mg/ Sodium (Chloride) 1,000.2 mls @ 100 mls/hr IV DAILY [facility] Metronidazole (Flagyl 500 Mg/100 Ml) 500 mg in 100 mls @ 100 mls/hr IV Q8H [facility] Last Infusion: 03/02/21 07:46 Dose: Infused Documented by: Lactulose (Lactulose 10 Gm /15 Ml Udc) 30 gm NC DAILY [facility] Lorazepam (Lorazepam 2 Mg/Ml Vial) 1 mg IVP Q30M PRN; Protocol PRN Reason: CIWA >8 Metoprolol Tartrate (Metoprolol 5 Mg/5 Ml Vial) 5 mg IVP TID [facility] Last Admin: 03/02/21 05:22 Dose: 5 mg Documented by: Multi-Ingredient Ointment (Zinc Oxide 20% Oint 30 Gm Tube) 1 applic TOP PRN PRN PRN Reason: Skin Care Last Admin: 03/02/21 05:24 Dose: 1 applic Documented by: Nystatin (Nystatin Cream 15 Gm Tube) 1 applic TOP BID [facility] Ondansetron HCl (Ondansetron 4 Mg/2 Ml Vial) 4 mg IVP Q6HR PRN PRN Reason: Nausea / Vomiting Pantoprazole Sodium (Pantoprazole 40 Mg Vial) 40 mg IV DAILY [facility] Sodium Chloride (Sodium Chloride Flush 0.9% 10 Ml Syringe) 10 ml IVP PRN PRN PRN Reason: NEEDED PER PROVIDER ORDERS Last Admin: 03/02/21 05:22 Dose: 10 ml Documented by: Sodium Chloride (Sodium Chloride Flush 0.9% 10 Ml Syringe) 10 ml IVP 0100,0900,1700 [facility] Last Admin: 03/01/21 22:50 Dose: 10 ml Documented by: Zinc Oxide (Cod Liver Oil/Zinc Oxide 113 Gm Tube) 113 gm TOP PRN PRN PRN Reason: Skin Care Furosemide [Lasix] 20 mg PO DAILY 07/31/20 Propranolol [Inderal] 10 mg PO BID 07/31/20 Spironolactone [Aldactone] 25 mg PO DAILY 07/31/20 Objective - Vital Signs/Intake & Output Reviewed Vital Signs: Yes Vital Signs: Vital Signs x48h Temp Pulse Pulse Resp BP BP Pulse Ox 03/02/21 07:00 94 22 130/68 97 03/02/21 06:00 93 23 152/75 H 98 03/02/21 05:45 90 146/74 H 03/02/21 05:30 91 171/79 H 03/02/21 05:25 92 163/107 H 03/02/21 05:22 142/61 H 03/02/21 05:21 99 135/94 H 03/02/21 05:00 99 25 H 142/61 H 99 03/02/21 04:00 36.3 C L 90 22 114/50 L 96 03/02/21 03:00 103 H 24 152/66 H 97 03/02/21 02:00 100 27 H 145/64 H 97 03/02/21 01:00 95 27 H 128/71 96 03/02/21 00:20 93 25 H 03/02/21 00:00 36.2 C L 90 28 H 151/70 H 98 Intake & Output: Intake & Output 02/27/21 02/28/21 03/01/21 03/02/21 23:59 23:59 23:59 23:59 Intake Total 3748.268 5248.599 778.667 Output Total 900 4297 824 Balance 2848.268 951.599 -45.333 - Objective General Appearance: positive: No acute distress, Other ( There have been no increasing responsiveness. Still opens his eyes and looks at you but does not do unresponsive elderly gentleman. Eyes remain at half mast. Eyelids are slightly open but he is looking at nothing.) ENT: positive: Dry mucous membranes Neck: positive: No JVD, Lymphadenopathy (R), Lymphadenopathy (L). negative: Stiff neck Respiratory: positive: No respiratory distress, Wheezes. negative: Rales, Rhonchi Cardiovascular: positive: Regular rate & rhythm, Systolic murmur. negative: Gallop/S4, Friction rub Abdomen: positive: Non-tender, No organomegaly, Nml bowel sounds, No distention Skin: positive: Warm, Dry, Pallor, Other (His butt is covered in a deep red rash. Both buttocks. As you extend on the outer edges of the buttocks the the raised rash fades. Right mid buttock cheek has loss of superficial skin.) Extremities: positive: Other (Severe muscle wasting. Rib cage and all bony prominences very visible.) Neurologic/Psychiatric: positive: Other (Every once in a while he will spontaneously move his limbs. For instance he will move his arm, or he will flex his hips and bend his knees and bring me his legs up. But there is no f ollowing the commands. No consciousness. No language.) - Lab Results Fish Bones: 03/02/21 06:56 03/02/21 06:56 Other Labs: Lab Results x24hrs 03/02/21 03/02/21 03/01/21 Range/Units 06:56 06:56 22:00 WBC 17.8 H (4.8-10.8) x10^3/uL RBC 3.76 L (4.70-6.10) 10^6/uL Hgb 8.9 L (14.0-18.0) g/dL Hct 28.1 L (42.0-52.0) % MCV 74.7 L (80.0-94.0) fL MCH 23.7 L (27.0-31.0) pg MCHC 31.7 L (32.0-36.0) g/dL RDW 25.3 H (12.0-15.0) % Plt Count 173 (130-450) 10^3/uL MPV 10.4 (7.4-11.4) fL Neut # (Auto) 14.9 H (1.5-6.6) 10^3/uL Lymph # (Auto) 0.4 L (1.5-3.5) 10^3/uL [place] # (Auto) 1.9 H (0.0-1.0) 10^3/uL Eos # (Auto) 0.1 (0.0-0.7) 10^3/uL Baso # (Auto) 0.0 (0.0-0.1) 10^3/uL Absolute Nucleated RBC 0.00 x10^3/uL Nucleated RBC % 0.0 /100WBC Manual Slide Review Indicated RBC Morph Micro Appear (NORMAL) Sodium 148 H (135-145) mmol/L Potassium 3.3 L (3.5-5.0) mmol/L Chloride 116 H (101-111) mmol/L Carbon Dioxide 17 L (21-32) mmol/L Anion Gap 15.0 H (6-13) BUN (6-20) mg/dL Creatinine 5.1 H (0.6-1.2) mg/dL Estimated GFR (MDRD) 11 L (>89) Glucose 142 H (70-100) mg/dL Calcium 8.2 L (8.5-10.3) mg/dL Total Bilirubin 4.2 H (0.2-1.0) mg/dL AST 26 (10-42) IU/L ALT 16 (10-60) IU/L Alkaline Phosphatase 119 (42-121) IU/L Total Protein 6.3 L (6.7-8.2) g/dL Albumin 2.5 L (3.2-5.5) g/dL Globulin 3.8 (2.1-4.2) g/dL Albumin/Globulin Ratio 0.7 L (1.0-2.2) Nasal Screen MRSA (PCR) NEGATIVE (NEGATIVE) 03/01/21 03/01/21 Range/Units 11:20 11:20 WBC 17.0 H (4.8-10.8) x10^3/uL RBC 3.73 L (4.70-6.10) 10^6/uL Hgb 8.8 L (14.0-18.0) g/dL Hct 27.1 L (42.0-52.0) % MCV 72.7 L (80.0-94.0) fL MCH 23.6 L (27.0-31.0) pg MCHC 32.5 (32.0-36.0) g/dL RDW 24.9 H (12.0-15.0) % Plt Count 183 (130-450) 10^3/uL MPV 10.1 (7.4-11.4) fL Neut # (Auto) 14.5 H (1.5-6.6) 10^3/uL Lymph # (Auto) 0.5 L (1.5-3.5) 10^3/uL [place] # (Auto) 1.7 H (0.0-1.0) 10^3/uL Eos # (Auto) 0.1 (0.0-0.7) 10^3/uL Baso # (Auto) 0.0 (0.0-0.1) 10^3/uL Absolute Nucleated RBC 0.00 x10^3/uL Nucleated RBC % 0.0 /100WBC Manual Slide Review Indicated RBC Morph Micro Appear 4+ ANISOCYTOSIS (NORMAL) Sodium 146 H (135-145) mmol/L Potassium 3.6 (3.5-5.0) mmol/L Chloride 114 H (101-111) mmol/L Carbon Dioxide 16 L (21-32) mmol/L Anion Gap 16.0 H (6-13) BUN 141 H* (6-20) mg/dL Creatinine 5.8 H (0.6-1.2) mg/dL Estimated GFR (MDRD) 10 L (>89) Glucose 119 H (70-100) mg/dL Calcium 7.3 L (8.5-10.3) mg/dL Total Bilirubin (0.2-1.0) mg/dL AST (10-42) IU/L ALT (10-60) IU/L Alkaline Phosphatase (42-121) IU/L Total Protein (6.7-8.2) g/dL Albumin (3.2-5.5) g/dL Globulin (2.1-4.2) g/dL Albumin/Globulin Ratio (1.0-2.2) Nasal Screen MRSA (PCR) (NEGATIVE) ABX Reporting Has patient been on IV antibiotics over the past 48 hours?: Yes Sepsis Event Note (H) - Evaluation Possible source of Sepsis: positive: Genitourinary, Skin/soft tissue Assessment/Plan - Problem List (1) Encephalopathy Impression: The causes of his metabolic encephalopathy are felt to be multifactorial. He has hepatic encephalopathy, possible sepsis, uremic encephalopathy, alcoholic withdrawal, but no stroke is seen on a negative CT. All of these are being treated. He is getting lactulose, antibiotics, IV hydration. His withdrawal has not been severe enough to require high dose benzodiazepines. Plan: Continue to stay the course with IV fluids, antibiotics. Rectal lactulose. Emphasis is on judicious use of therapy without aggressive interventions. Daughter has stressed that it is more a palliative approach. DO NOT RESUSC ITATE. (2) Acute renal failure Impression: That has been gradually improving since his admission through the ER on February 28. He started at 202 BUN. Is down to 125 today. Creatinine started at 10.3 and is down to 5.1 today. Plan: Continue IV fluids for hydration Ultrasound of the abdomen has been done this morning. We will review it to make sure there is no obstruction. 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 Daughter describes him as a binge drinker. 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 She sees him maybe once a month and last saw him about a week and a half ago. His alcohol level was 0 when he came in. However he had been down for a few days in his hotel room so it is unclear when his last drink was. On admission his bilirubin was 4.8. AST 24. ALT 20. Alk phos 149. I suspect if he truly does have end-stage liver disease he has no ability to mount elevated AST or ALT. His last abdominal CT was done in July 2020 for rectal bleeding. The liver was nodular, without focal masses. Upper abdominal varices were seen as well as gastroesophageal varices. There was a recanalized umbilical vein, periumbilical varices. Large spleen. Normal gallbladder with nondilated biliary system. Essentially it was a cirrhotic liver with portal venous hypertension and upper abdominal varices with splenomegaly and moderate ascites. One of the differential diagnosis is the cause of his encephalopathy is infection. Specifically spontaneous bacterial peritonitis. We are treating empirically to see if he responds. He will also be getting lactulose enemas until he can take p.o. He is getting a banana bag. Once he is more awake will be started on metoprolol, rifaximin p.o. (4) Protein-calorie malnutrition, severe Impression: Severely reduced muscle mass of his arms and legs. Albumin and protein were very low. I would consider doing NG tube feedings while he is unconscious. However with view of the thought process of going more toward palliative than aggressive full intervention, I will hold off on that. If he wakes up and starts eating on his own that would be best. (5) Iron deficiency anemia due to dietary causes Impression: this gentleman has portal HTN and extensive varices. I suspect chronic mild blood loss daily in addition to poor diet would result in this anemia. It is microcytic. AT ths time doesn't meet criteria for transfusion. When awake, oral B12, folate and iron. (6) Hypertension Impression: prn lopressor IV if needed for >180 systolic. Qualifiers: Hypertension type: primary hypertension Qualified Code(s): I10 - Essential (primary) hypertension
--- NOTE | 2021-03-02 08:09 | XRAY Report ---
PROCEDURE: Chest 1 View X-Ray INDICATIONS: asp ? PNA TECHNIQUE: One view of the chest was acquired. COMPARISON: 02/28/2021 FINDINGS: Surgical changes and devices: None. Lungs and pleura: No pleural effusions or pneumothorax. Lungs are clear. Mediastinum: Mediastinal contours appear normal. Heart size is normal. Bones and chest wall: No suspicious bony lesions. Overlying soft tissues appear unremarkable. IMPRESSION: No acute cardiopulmonary abnormality Reviewed by: Shant Angela on 03/02/2021 8:08 AM PDT Approved by: Shant Angela on 03/02/2021 8:08 AM PDT Station ID: [id number]
[2021-03-02] MEDS ORDERED: SODIUM CHLORIDE 0.9% 50 ML IV ONE (08:16)
[2021-03-02] MEDS: PANTOPRAZOLE 40 MG VIAL IV SCH (08:29)
[2021-03-02] MEDS: PIPERACILLIN/TAZOBACTAM 3.375 GM in SODIUM CHLORIDE 0.9% MINIBAG 100 ML IV SCH ×2 (08:29→19:38)
[2021-03-02] MEDS: SODIUM CHLORIDE FLUSH 0.9% 10 ML SYRINGE IVP SCH ×3 (08:30→22:43)
[2021-03-02] MEDS ORDERED: THIAMINE INJ 100 MG in SODIUM CHLORIDE 0.9% 50 ML IV SCH (09:00)
[2021-03-02] MEDS ORDERED: THIAMINE 100 MG TABLET PO SCH (09:00)
[2021-03-02] MEDS ORDERED: PRENATAL VITAMIN TABLET PO SCH (09:00)
[2021-03-02] MEDS ORDERED: FAMOTIDINE 20 MG TABLET PO SCH (09:00)
[2021-03-02] MEDS ORDERED: FOLIC ACID INJ 1 MG in SODIUM CHLORIDE 0.9% 1,000 ML IV SCH (09:00)
[2021-03-02] MEDS ORDERED: LACTULOSE 10 GM /15 ML UDC PO SCH (09:00)
[2021-03-02] MEDS: LACTULOSE 10 GM /15 ML UDC PR SCH (10:00)
[2021-03-02] MEDS: COD LIVER OIL/ZINC OXIDE 113 GM TUBE TOP PRN (10:08)
--- NOTE | 2021-03-02 10:36 | Ultrasound Report ---
PROCEDURE: Abdomen Complete INDICATIONS: renal failure, sepsis, cirrhosis TECHNIQUE: Real-time scanning was performed of the abdominal and retroperitoneal organs, with image documentatio n. COMPARISON: CT abdomen pelvis 07/21/2013 FINDINGS: Liver: The liver is mildly enlarged measuring 18.1 cm in length. The parenchymal echotexture is coars e and the margin is micronodular. No large mass. Small masses would not be seen. Probable recanalizat ion of the umbilical vein. Trace ascites. Gallbladder: The gallbladder is normal without stones. Possible dependent sludge. Normal wall thickne ss at 1.6 mm. No pericholecystic fluid or sonographic Yoo sign. Biliary ducts: Intrahepatic bile ducts are non-dilated. Extrahepatic bile duct caliber measures 5.7 mm. Normal is 6-7 mm or less in diameter, or 10 mm or less post-cholecystectomy. Pancreas: Proximal pancreas is grossly normal without ductal dilatation. The tail was not seen. Spleen: Spleen is enlarged measuring 15.6 x 14.6 x 7.8 cm. Kidneys: Kidneys are normal in size and echotexture Right kidney measures 13.5 cm long; left kidney measures 12.2 cm long. Parapelvic cyst in the lower pole of the right kidney. Mild bilateral hydron ephrosis. No solid masses. Aorta: The visible portion of the aorta is normal. Mid and distal portion is not seen. Iliacs: Proximal common iliac arteries are normal in caliber at less than 2.5 cm. IVC: Intrahepatic inferior vena cava is patent. Miscellaneous: A Calix catheter is within an incompletely collapsed urinary bladder. The visible port ion of the urinary bladder demonstrates irregular wall and mucosal thickening and internal scarring o r septation. IMPRESSION: 1. Cirrhotic liver and signs of portal hypertension. 2. Thickened and irregular urinary bladder wall, decompressed partially around a Calix catheter, but demonstrating internal irregularity. While this may be due to underdistention or scarring, infection or neoplasm is not excluded. 3. Mild bilateral hydronephrosis, new compared to the prior study may be related to bladder process. 4. Probable gallbladder sludge. 5. CT IVP may be useful in evaluating urinary system. Reviewed by: Nallely Franks MD on 03/02/2021 10:34 AM PDT Approved by: Nallely Franks MD on 03/02/2021 10:34 AM PDT Station ID: [id number]
[2021-03-02] MEDS: IPRATROPIUM/ALBUTEROL 3 ML NEB INH PRN (10:41)
[2021-03-02] MEDS: THIAMINE IV SCH (11:49)
[2021-03-02] MEDS: MULTIVITAMIN IV SCH (11:49)
[2021-03-02] MEDS: DEXTROSE 5% IV SCH (11:49)
[2021-03-02] MEDS: FOLIC ACID IV SCH (11:49)
--- NOTE | 2021-03-02 11:50 | PHARMACY PROGRESS NOTE ---
- Best Possible Medication History Admit Date and Time: 03/01/212114 Processed by: Nursing Medication History completed: Yes (med rec completed by nursing) As the person ultimately responsible for medication therapy, providers are able to order a medication from an existing home medication list in [facility] via the "Reconcile Routine" prior to Confirmation of that medication by system support analyst. Such practice is discouraged except when the physician, in their clinical judgment, deems that a medical need exists for a medication without regard to previous use.
[2021-03-02] MEDS: NYSTATIN CREAM 15 GM TUBE TOP SCH ×2 (12:00→21:33)
[2021-03-02 16:59] LABS: CALCIUM, IONIZED 1.05 mmol/L (1.15-1.33); VBG PH 7.396 (7.31-7.41)
[2021-03-02] MEDS: POTASSIUM CHLOR 10 MEQ/100 ML 10 MEQ/100 ML BAG IV SCH ×4 (17:18→22:42)
[2021-03-02] MEDS ORDERED: CALCIUM GLUCONATE 1,000 MG in SODIUM CHLORIDE 0.9% 50 ML IV ONE (18:00)
[2021-03-03] MEDS: COD LIVER OIL/ZINC OXIDE 113 GM TUBE TOP PRN (00:33)
[2021-03-03] MEDS: LORazepam 2 MG/ML VIAL IVP PRN ×4 (00:51→22:11)
[2021-03-03] MEDS: SODIUM CHLORIDE FLUSH 0.9% 10 ML SYRINGE IVP PRN ×5 (02:47→23:26)
[2021-03-03] MEDS: MORPHINE 2 MG/ML CARPUJECT IVP PRN ×4 (02:47→23:25)
[2021-03-03] MEDS: DEXTROSE 5% 1,000 ML IV SCH ×2 (03:27→12:38)
[2021-03-03] MEDS: IPRATROPIUM/ALBUTEROL 3 ML NEB INH PRN ×2 (05:02→13:35)
[2021-03-03 05:36] LABS: BASOPHILS % (AUTO) 0.1 %; EOSINOPHILS # (AUTO) 0.3 10^3/uL (0.0-0.7); EOSINOPHILS % (AUTO) 2.1 %; HCT - HEMATOCRIT 29.5 % (42.0-52.0); LYMPHOCYTES # (AUTO) 0.6 10^3/uL (1.5-3.5); LYMPHOCYTES % (AUTO) 4.5 %; MEAN CORPUSCULAR HEMOGLOBIN 23.7 pg (27.0-31.0); MEAN CORPUSCULAR HGB CONC 30.5 g/dL (32.0-36.0); MEAN CORPUSCULAR VOLUME 77.6 fL (80.0-94.0); MEAN PLATELET VOLUME 10.3 fL (7.4-11.4); MONOCYTES # (AUTO) 1.4 10^3/uL (0.0-1.0); NEUTROPHILS # (AUTO) 11.6 10^3/uL (1.5-6.6); NEUTROPHILS % (AUTO) 81.9 %; PLT - PLATELET COUNT 150 10^3/uL (130-450); RED CELL DISTRIBUTION WIDTH 25.4 % (12.0-15.0); WHITE BLOOD COUNT 14.2 x10^3/uL (4.8-10.8)
[2021-03-03 05:39] LABS: SLIDE REVIEW? Indicated
[2021-03-03 05:51] LABS: ALBUMIN 2.4 g/dL (3.2-5.5); ALBUMIN/GLOBULIN RATIO 0.6 (1.0-2.2); BILIRUBIN,TOTAL 3.6 mg/dL (0.2-1.0); CALCIUM 8.5 mg/dL (8.5-10.3); CREATININE 3.4 mg/dL (0.6-1.2); POTASSIUM 3.4 mmol/L (3.5-5.0); TOTAL PROTEIN 6.3 g/dL (6.7-8.2)
[2021-03-03 06:00] LABS: PLATELET MORPHOLOGY NORMAL APPEARANCE (NORMAL)
[2021-03-03 06:01] LABS: PLATELET ESTIMATE, MANUAL NORMAL (130-450,000) (NORMAL); WBC MORPHOLOGY (MULTIPLE) NORMAL APPEARANCE (NORMAL)
[2021-03-03] MEDS: METOPROLOL 5 MG/5 ML VIAL IVP SCH ×3 (06:17→22:03)
[2021-03-03] MEDS: metroNIDAZOLE 500 MG/100 ML 500 MG/100 ML BAG IV SCH (06:19)
[2021-03-03 07:16] LABS: MAGNESIUM 2.6 mg/dL (1.7-2.8); PHOSPHORUS 4.5 mg/dL (2.5-4.6)
[2021-03-03] MEDS: PIPERACILLIN/TAZOBACTAM 3.375 GM in SODIUM CHLORIDE 0.9% MINIBAG 100 ML IV SCH ×2 (07:58→20:02)
[2021-03-03] MEDS: SODIUM CHLORIDE FLUSH 0.9% 10 ML SYRINGE IVP SCH ×4 (08:16→20:59)
--- NOTE | 2021-03-03 08:21 | PROVIDER PROGRESS NOTE ---
Subjective - Prog Note Date Prog Note Date: 03/03/21 Prog Note Time: 11:46 - Subjective Subjective: For the last 2 days I would walk in room, call his name, touch his shoulder and there was no response. His eyes were always partially closed and he was staring off into space with lids half mast. Today, eyes are fully open. When I call his name from nursing home across the room he turned around and looks at me. When I speak to him he does mumble some responses. Half of the more appropriate and what I would expect, the other half not so much. Nonsensical. He cannot tell me where he is. But he knows he is in the hospital. When I ask him about pain, shortness of breath, his responses to mumble "I do not know". Current Medications - Current Medications Current Medications: Active Medications Albuterol/Ipratropium (Ipratropium/Albuterol 3 Ml Neb) 3 ml INH Q4HR PRN PRN Reason: Wheezing Last Admin: 03/03/21 05:02 Dose: 3 ml Documented by: Piperacillin Sod/Tazobactam (Sod 3.375 gm/ Sodium Chloride) 100 mls @ 25 mls/hr IV Q12H TRACI Last Admin: 03/03/21 07:58 Dose: 25 mls/hr Documented by: Multivitamins 10 ml/ Folic Acid 1 mg/ Thiamine HCl 100 mg / Dextrose 1,011.2 mls @ 100 mls/hr IV DAILY TRACI; Protocol Stop: 03/03/21 21:00 Last Infusion: 03/03/21 10:00 Dose: 100 mls/hr Documented by: Dextrose (D5w) 1,000 mls @ 83.333 mls/hr IV .Q12H TRACI Last Infusion: 03/03/21 09:15 Dose: 0 mls/hr Documented by: Potassium Chloride (Potassium Chloride) 10 meq in 100 mls @ 100 mls/hr IV Q1H TRACI; Protocol Stop: 03/03/21 13:59 Last Admin: 03/03/21 11:32 Dose: 100 mls/hr Documented by: Lactulose (Lactulose 10 Gm /15 Ml Udc) 30 gm [place] DAILY TRACI Last Admin: 03/03/21 08:26 Dose: 30 gm Documented by: Lorazepam (Lorazepam 2 Mg/Ml Vial) 1 mg IVP Q30M PRN; Protocol PRN Reason: CIWA >8 Last Admin: 03/03/21 06:45 Dose: 1 mg Documented by: Metoprolol Tartrate (Metoprolol 5 Mg/5 Ml Vial) 5 mg IVP TID [facility] Last Admin: 03/03/21 06:17 Dose: 5 mg Documented by: Morphine Sulfate (Morphine 2 Mg/Ml Carpuject) 2 mg IVP Q2HR PRN PRN Reason: PAIN Last Admin: 03/03/21 02:47 Dose: 2 mg Documented by: Multi-Ingredient Ointment (Zinc Oxide 20% Oint 30 Gm Tube) 1 applic TOP PRN PRN PRN Reason: Skin Care Last Admin: 03/02/21 05:24 Dose: 1 applic Documented by: Multivitamins (Multivitamin Tablet) 1 tab PO DAILYWM [facility] Nystatin (Nystatin Cream 15 Gm Tube) 1 applic TOP BID [facility] Last Admin: 03/03/21 08:30 Dose: 1 applic Documented by: Ondansetron HCl (Ondansetron 4 Mg/2 Ml Vial) 4 mg IVP Q6HR PRN PRN Reason: Nausea / Vomiting Pantoprazole Sodium (Pantoprazole 40 Mg Vial) 40 mg IV DAILY [facility] Last Admin: 03/03/21 08:30 Dose: 40 mg Documented by: Sodium Chloride (Sodium Chloride Flush 0.9% 10 Ml Syringe) 10 ml IVP PRN PRN PRN Reason: NEEDED PER PROVIDER ORDERS Last Admin: 03/03/21 07:20 Dose: 10 ml Documented by: Sodium Chloride (Sodium Chloride Flush 0.9% 10 Ml Syringe) 10 ml IVP 0100,0900,1700 [facility] Last Admin: 03/03/21 08:16 Dose: Not Given Documented by: Thiamine HCl (Thiamine 100 Mg Tablet) 100 mg PO DAILY [facility] Zinc Oxide (Cod Liver Oil/Zinc Oxide 113 Gm Tube) 113 gm TOP PRN PRN PRN Reason: Skin Care Last Admin: 03/03/21 00:33 Dose: 1 applic Documented by: Furosemide [Lasix] 20 mg PO DAILY 07/31/20 Propranolol [Inderal] 10 mg PO BID 07/31/20 Spironolactone [Aldactone] 25 mg PO DAILY 07/31/20 Objective - Vital Signs/Intake & Output Reviewed Vital Signs: Yes Vital Signs: Vital Signs x48h Temp Pulse Pulse Resp BP BP Pulse Ox 03/03/21 07:00 92 19 111/56 L 96 03/03/21 06:17 139/87 H 03/03/21 06:00 106 H 20 139/87 H 97 03/03/21 05:08 96 20 134/80 H 100 03/03/21 05:00 96 23 03/03/21 04:00 91 19 134/62 H 98 03/03/21 03:29 36.3 C L 96 23 154/69 H 100 03/03/21 02:00 99 23 100 03/03/21 01:00 98 20 152/73 H 100 Intake & Output: Intake & Output 02/28/21 03/01/21 03/02/21 03/03/21 23:59 23:59 23:59 23:59 Intake Total 3748.268 5248.599 3008.200 412.415 Output Total 900 4297 3704 920 Balance 2848.268 951.599 -695.800 -507.585 - Objective General Appearance: positive: Lethargic Eyes Bilateral: positive: PERRL, EOMI Eyes: OU Other (Scleral edema is mild.) ENT: positive: Dry mucous membranes, Other (Poor dentition. Gingivitis, and quite substance in between teeth) Neck: positive: No JVD. negative: Stiff neck Respiratory: positive: No respiratory distress. negative: Wheezes, Rales, Rhonchi Cardiovascular: positive: Regular rate & rhythm, Systolic murmur. negative: Gallop/S4, Friction rub Abdomen: positive: Non-tender, No organomegaly, Nml bowel sounds, Other (Distended and soft. Superficial varicosities present in bilateral upper quadrants). negative: Guarding, Rebound Skin: positive: Warm, Dry, Pallor Extremities: positive: Non-tender, Full ROM, No pedal edema Neurologic/Psychiatric: positive: CN's nml (2-12), Motor nml, Disoriented to time, Slurred/abnml speech - Lab Results Fish Bones: 03/03/21 04:08 03/03/21 04:08 Other Labs: Lab Results x24hrs 03/03/21 03/03/21 03/03/21 Range/Units 04:08 04:08 04:08 WBC 14.2 H (4.8-10.8) x10^3/uL RBC 3.80 L (4.70-6.10) 10^6/uL Hgb 9.0 L (14.0-18.0) g/dL Hct 29.5 L (42.0-52.0) % MCV 77.6 L (80.0-94.0) fL MCH 23.7 L (27.0-31.0) pg MCHC 30.5 L (32.0-36.0) g/dL RDW 25.4 H (12.0-15.0) % Plt Count 150 (130-450) 10^3/uL MPV 10.3 (7.4-11.4) fL Neut # (Auto) 11.6 H (1.5-6.6) 10^3/uL Lymph # (Auto) 0.6 L (1.5-3.5) 10^3/uL Collin # (Auto) 1.4 H (0.0-1.0) 10^3/uL Eos # (Auto) 0.3 (0.0-0.7) 10^3/uL Baso # (Auto) 0.0 (0.0-0.1) 10^3/uL Absolute Nucleated RBC 0.00 x10^3/uL Nucleated RBC % 0.0 /100WBC Manual Slide Review Indicated WBC Morphology NORMAL APPEARANCE (NORMAL) Platelet Estimate NORMAL (130-450,000) (NORMAL) Platelet Morphology NORMAL APPEARANCE (NORMAL) RBC Morph Micro Appear 1+ POLYCHROMASIA (NORMAL) VBG pH (7.31-7.41) Ionized Calcium (1.15-1.33) mmol/L Sodium 152 H (135-145) mmol/L Potassium 3.4 L (3.5-5.0) mmol/L Chloride 118 H (101-111) mmol/L Carbon Dioxide 18 L (21-32) mmol/L Anion Gap 16.0 H (6-13) BUN 93 H* (6-20) mg/dL Creatinine 3.4 H (0.6-1.2) mg/dL Estimated GFR (MDRD) 18 L (>89) Glucose 109 H (70-100) mg/dL Calcium 8.5 (8.5-10.3) mg/dL Phosphorus 4.5 (2.5-4.6) mg/dL Magnesium 2.6 (1.7-2.8) mg/dL Total Bilirubin 3.6 H (0.2-1.0) mg/dL AST 27 (10-42) IU/L ALT 19 (10-60) IU/L Alkaline Phosphatase 115 (42-121) IU/L Total Protein 6.3 L (6.7-8.2) g/dL Albumin 2.4 L (3.2-5.5) g/dL Globulin 3.9 (2.1-4.2) g/dL Albumin/Globulin Ratio 0.6 L (1.0-2.2) Stl C. diff Tox B Gene (NEGATIVE) 03/03/21 03/02/21 Range/Units 00:30 16:45 WBC (4.8-10.8) x10^3/uL RBC (4.70-6.10) 10^6/uL Hgb (14.0-18.0) g/dL Hct (42.0-52.0) % MCV (80.0-94.0) fL MCH (27.0-31.0) pg MCHC (32.0-36.0) g/dL RDW (12.0-15.0) % Plt Count (130-450) 10^3/uL MPV (7.4-11.4) fL Neut # (Auto) (1.5-6.6) 10^3/uL Lymph # (Auto) (1.5-3.5) 10^3/uL Collin # (Auto) (0.0-1.0) 10^3/uL Eos # (Auto) (0.0-0.7) 10^3/uL Baso # (Auto) (0.0-0.1) 10^3/uL Absolute Nucleated RBC x10^3/uL Nucleated RBC % /100WBC Manual Slide Review WBC Morphology (NORMAL) Platelet Estimate (NORMAL) Platelet Morphology (NORMAL) RBC Morph Micro Appear (NORMAL) VBG pH 7.396 (7.31-7.41) Ionized Calcium 1.05 L (1.15-1.33) mmol/L Sodium (135-145) mmol/L Potassium (3.5-5.0) mmol/L Chloride (101-111) mmol/L Carbon Dioxide (21-32) mmol/L Anion Gap (6-13) BUN (6-20) mg/dL Creatinine (0.6-1.2) mg/dL Estimated GFR (MDRD) (>89) Glucose (70-100) mg/dL Calcium (8.5-10.3) mg/dL Phosphorus (2.5-4.6) mg/dL Magnesium (1.7-2.8) mg/dL Total Bilirubin (0.2-1.0) mg/dL AST (10-42) IU/L ALT (10-60) IU/L Alkaline Phosphatase (42-121) IU/L Total Protein (6.7-8.2) g/dL Albumin (3.2-5.5) g/dL Globulin (2.1-4.2) g/dL Albumin/Globulin Ratio (1.0-2.2) Stl C. diff Tox B Gene NEGATIVE (NEGATIVE) ABX Reporting Has patient been on IV antibiotics over the past 48 hours?: Yes Sepsis Event Note (H) - Evaluation Possible source of Sepsis: positive: Genitourinary, Skin/soft tissue Assessment/Plan - Problem List (1) Encephalopathy Impression: The causes of his metabolic encephalopathy are felt to be multifactorial. He has hepatic encephalopathy, possible sepsis, uremic encephalopathy, alcoholic withdrawal, but no stroke is seen on a negative CT. All of these are being treated. He is getting lactulose, antibiotics, IV hydration. His withdrawal has not been severe enough to require high dose benzodiazepines. He has been in the ER since February 28, we admitted him on the evening of March 01. Between then and now, he is slowly but definitely improving. Plan: Continue to stay the course with IV fluids, antibiotics. Rectal lactulose. Emphasis is on judicious use of therapy without aggressive interventions. Daughter has stressed that it is more a palliative approach. DO NOT R ESUSCITATE. Today we will start focusing on transitioning him to have more oral medications as opposed to IV, and starting a diet. (2) Acute renal failure Impression: That has been gradually improving since his admission through the ER on February 28. He started at 202 BUN. Is down to 93 today. Creatinine started at 10.3 and is down to 3.4 today. On ultrasound, Kidneys are normal in size and echotexture. Right kidney and left kidney with mild bilateral hydronephrosis. No solid masses. A Calix catheter is within an incompletely collapsed urinary joana dder. The visible portion of the urinary bladder demonstrates irregular wall and mucosal thickening and internal scarring or septation.. He has a parapelvic cyst in the lower pole of the right kidney. As such, his renal failure is due to partial obstruction what ever is going on with his bladder to cause mild hydroureter, probably enlarged prostate, but most of all, prerenal azotemia from severe dehydration. I do not think he is in hepatorenal failure. 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 Daughter describes him as a binge drinker. 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 She sees him maybe once a month and last saw him about a week and a half ago. His alcohol level was 0 when he came in. However he had been down for a few days in his hotel room so it is unclear when his last drink was. On admission his bilirubin was 4.8. AST 24. ALT 20. Alk phos 149. I suspect if he truly does have end-stage liver disease he has no ability to mount elevated AST or ALT. His last abdominal CT was done in July 2020 for rectal bleeding. The liver was nodular, without focal masses. Upper abdominal varices were seen as well as gastroesophageal varices. There was a recanalized umbilical vein, periumbilical varices. Large spleen. Normal gallbladder with nondilated biliary system. Essentially it was a cirrhotic liver with portal venous hypertension and upper abdominal varices with splenomegaly and moderate ascites. One of the differential diagnosis as the cause of his encephalopathy is infection. Specifically spontaneous bacterial peritonitis. We are treating empirically to see if he responds. On Zosyn Day #3 (started 02/28). Flagyl was started but that is double coverage for bowel. He will also be getting lactulose enemas until he can take p.o. He is getting a banana bag. Once he is more awake will be started on metoprolol, rifaximin p.o. Today, he is more awake. Were going to test out his swallow mechanism by starting him on a diet. If he can swallow pills we will start him on oral metoprolol and rifaximin and lactulose. (4) Protein-calorie malnutrition, severe Impression: Severely reduced muscle mass of his arms and legs. Albumin and protein were very low. I would consider doing NG tube feedings while he is unconscious. However with view of the thought process of going more toward palliative than aggressive full intervention, I will hold off on that. If he wakes up and starts eating on his own that would be best. Today, With more alertness, nutrition services will work with him and see what diet we can start him on. We need to first make sure that he is not an aspiration risk. (5) Iron deficiency anemia due to dietary causes Impression: this gentleman has portal HTN and extensive varices. I suspect chronic mild blood loss daily in addition to poor diet would result in this anemia. It is microcytic. AT ths time doesn't meet criteria for transfusion. When awake enough: oral B12, folate and iron. (6) Hypertension Impression: On prn lopressor IV if needed for >180 systolic. Will change to po today. Qualifiers: Hypertension type: primary hypertension Qualified Code(s): I10 - Essential (primary) hypertension (2) Acute renal failure Qualifiers: Qualified Code(s): N17.9 - Acute kidney failure, unspecified
[2021-03-03] MEDS: LACTULOSE 10 GM /15 ML UDC PR SCH (08:26)
[2021-03-03] MEDS: NYSTATIN CREAM 15 GM TUBE TOP SCH ×2 (08:30→21:01)
[2021-03-03] MEDS: PANTOPRAZOLE 40 MG VIAL IV SCH (08:30)
[2021-03-03] MEDS: THIAMINE IV SCH (09:14)
[2021-03-03] MEDS: FOLIC ACID IV SCH (09:14)
[2021-03-03] MEDS: DEXTROSE 5% IV SCH (09:14)
[2021-03-03] MEDS: MULTIVITAMIN IV SCH (09:14)
[2021-03-03] MEDS: POTASSIUM CHLOR 10 MEQ/100 ML 10 MEQ/100 ML BAG IV SCH ×6 (10:24→21:35)
[2021-03-03] MEDS ORDERED: FUROSEMIDE 40 MG/4 ML VIAL IVP STA (13:46)
--- NOTE | 2021-03-03 14:16 | XRAY Report ---
PROCEDURE: Chest 1 View X-Ray INDICATIONS: short of breath TECHNIQUE: One view of the chest was acquired. COMPARISON: 03/01/2021 FINDINGS: Surgical changes and devices: None. Lungs and pleura: No pleural effusions or pneumothorax. There is mild pulmonary vascular congestion. No definite focal infiltrate. Poor inspiratory effort is noted. Mediastinum: Mediastinal contours appear normal. Heart size is enlarged. Bones and chest wall: No suspicious bony lesions. Overlying soft tissues appear unremarkable. IMPRESSION: Cardiomegaly and mild pulmonary vascular congestion. No definite focal infiltrate, pleural effusion o r pneumothorax. Reviewed by: Matty Philip MD on 03/03/2021 2:14 PM PDT Approved by: Matty Philip MD on 03/03/2021 2:14 PM PDT Station ID: [id number]
[2021-03-03] MEDS: ZINC OXIDE 20% OINT 30 GM TUBE TOP PRN ×2 (14:33→23:18)
[2021-03-03] MEDS ORDERED: ADENOSINE 6 MG/2 ML VIAL IVP ONE ×3 (16:10→16:23)
[2021-03-03] MEDS ORDERED: diltiaZEM INJ 5 MG/ML VIAL ONE (16:21)
[2021-03-03] MEDS ORDERED: diltiaZEM INJ 5 MG/ML VIAL IVP ONE (16:23)
[2021-03-03] MEDS ORDERED: ADENOSINE 6 MG/2 ML VIAL IVP STA (16:39)
--- NOTE | 2021-03-03 16:42 | PROVIDER PROGRESS NOTE ---
Progress Note March 03, 2021 4:38 PM 3:58 PM I was notified that the patient was with a sudden change in rhythm. He had a wide-complex tachycardia on the telemetry ICU monitor. Lead II and lead 5 were analyzed. I then obtained a stat EKG which showed a wide-complex tachycardia with different morphology depending on which lead he was on. Blood pressure was maintained. I felt that this was a wide-complex tachycardia that was not V. tach.He has had a brisk diuresis with 40 mg of IV push Lasix. And his previous shortness of breath and tachypnea and wheezing had improved tremendously. Patient's blood pressure was 100-110 systolic, respiratory rate was unlabored, he was responsive. There is no diaphoresis. He was responding to our commands. For instance asked him to cough and he did. He then perseverated and said "I'm coughing, I'm coughing, I'm coughing" and repeated that many times 6 mg of adenosine was given and brought his heart rate down to 110. Unfortunately it immediately rebounded within 2 minutes back up to 160. 12 mg of adenosine was then given and heart rate dropped to 67. Within 1 minute it rebounded to 156. Patient was given diltiazem 15 mg IV push. Heart rate dropped to 115. Diltiazem drip was started. Over the next hour, I have been closely monitoring the patient for signs of decompensation. But blood pressure has been maintained. He is as alert as he always was. He just mumbles a lot. Is repetitive when I ask him a question. Greater than 45 minutes was spent in direct patient care.
[2021-03-03] MEDS: diltiaZEM INJ 125 MG in DEXTROSE 5% 100 ML IV SCH ×2 (16:45→23:21)
[2021-03-03] MEDS ORDERED: diltiaZEM INJ 125 MG in DEXTROSE 5% 100 ML IV SCH (17:00)
[2021-03-03 17:13] LABS: CALCIUM 8.8 mg/dL (8.5-10.3); CREATININE 3.2 mg/dL (0.6-1.2); POTASSIUM 3.7 mmol/L (3.5-5.0)
[2021-03-03] MEDS ORDERED: POTASSIUM CHLOR 10 MEQ/100 ML 20 MEQ/200 ML BAG IV ONE (20:16)
[2021-03-04 00:12] LABS: PHOSPHORUS 4.2 mg/dL (2.5-4.6)
[2021-03-04] MEDS: DEXTROSE 5% 1,000 ML IV SCH ×2 (00:48→22:11)
[2021-03-04] MEDS: MORPHINE 2 MG/ML CARPUJECT IVP PRN ×2 (05:24→19:57)
[2021-03-04] MEDS: SODIUM CHLORIDE FLUSH 0.9% 10 ML SYRINGE IVP PRN ×3 (05:25→23:43)
[2021-03-04 05:28] LABS: ALBUMIN 2.2 g/dL (3.2-5.5); ALBUMIN/GLOBULIN RATIO 0.6 (1.0-2.2); BILIRUBIN,TOTAL 3.3 mg/dL (0.2-1.0); CALCIUM 8.5 mg/dL (8.5-10.3); PHOSPHORUS 4.7 mg/dL (2.5-4.6); POTASSIUM 3.8 mmol/L (3.5-5.0); TOTAL PROTEIN 5.9 g/dL (6.7-8.2)
[2021-03-04] MEDS: ZINC OXIDE 20% OINT 30 GM TUBE TOP PRN (05:38)
[2021-03-04] MEDS: METOPROLOL 5 MG/5 ML VIAL IVP SCH ×4 (06:05→23:05)
[2021-03-04] MEDS ORDERED: FUROSEMIDE 40 MG/4 ML VIAL IVP STA (06:54)
[2021-03-04] MEDS: POTASSIUM CHLOR 10 MEQ/100 ML 10 MEQ/100 ML BAG IV SCH ×2 (07:07→08:27)
[2021-03-04] MEDS ORDERED: MULTIVITAMIN TABLET PO SCH (08:00)
[2021-03-04] MEDS: PIPERACILLIN/TAZOBACTAM 3.375 GM in SODIUM CHLORIDE 0.9% MINIBAG 100 ML IV SCH ×2 (08:27→19:44)
[2021-03-04] MEDS: PANTOPRAZOLE 40 MG VIAL IV SCH (08:29)
[2021-03-04] MEDS ORDERED: THIAMINE 100 MG TABLET PO SCH (09:00)
[2021-03-04] MEDS: diltiaZEM INJ 125 MG in DEXTROSE 5% 100 ML IV SCH (09:55)
[2021-03-04] MEDS: NYSTATIN CREAM 15 GM TUBE TOP SCH ×2 (10:14→21:47)
[2021-03-04] MEDS: SODIUM CHLORIDE FLUSH 0.9% 10 ML SYRINGE IVP SCH ×4 (10:14→23:05)
[2021-03-04] MEDS: COD LIVER OIL/ZINC OXIDE 113 GM TUBE TOP PRN ×3 (10:38→23:56)
[2021-03-04] MEDS: MULTIVITAMIN IV SCH (12:34)
[2021-03-04] MEDS: FOLIC ACID IV SCH (12:34)
[2021-03-04] MEDS: THIAMINE IV SCH (12:34)
[2021-03-04] MEDS: DEXTROSE 5% IV SCH (12:34)
[2021-03-04] MEDS: LACTULOSE 10 GM /15 ML UDC PR SCH (12:45)
--- NOTE | 2021-03-04 18:40 | PROVIDER PROGRESS NOTE ---
Subjective - Prog Note Date Prog Note Date: 03/04/21 Prog Note Time: 18:38 - Subjective Subjective: The wide-complex tachycardia from yesterday has improved. He is converted to sinus rhythm. His pulse is now 75-80. Metoprolol was given and Cardizem drip stopped. He is still not much more alert than he was last 24 hours. He does respond to voice. His eyes are now open. He will occasionally answer your questions but goes right back to sleep. When he does speak he mumbles, difficult to understand him. Repeats a lot of the words you have just used to question him. We have finally gotten him to eat at least mashed potatoes and gravy. Drinking thin liquids seems difficult for him. Nursing is trying to get him to do p.o. lactulose Current Medications - Current Medications Current Medications: Active Medications Albuterol/Ipratropium (Ipratropium/Albuterol 3 Ml Neb) 3 ml INH Q4HR PRN PRN Reason: Wheezing Last Admin: 03/03/21 13:35 Dose: 3 ml Documented by: Diltiazem HCl (Diltiazem 30 Mg Tablet) 30 mg PO Q6HR [facility] Piperacillin Sod/Tazobactam (Sod 3.375 gm/ Sodium Chloride) 100 mls @ 25 mls/hr IV Q12H [facility] Last Infusion: 03/04/21 12:30 Dose: Infused Documented by: Multivitamins 10 ml/ Folic Acid 1 mg/ Thiamine HCl 100 mg / Dextrose 1,011.2 mls @ 100 mls/hr IV DAILY [facility]; Protocol Last Admin: 03/04/21 12:34 Dose: 100 mls/hr Documented by: Dextrose (D5w) 1,000 mls @ 83.333 mls/hr IV .Q12H [facility] Last Infusion: 03/04/21 12:33 Dose: 0 mls/hr Documented by: Diltiazem HCl 125 mg/ Dextrose 125 mls @ 5 mls/hr IV .Q25H [facility]; Protocol Stop: 03/04/21 20:00 Last Titration: 03/04/21 14:20 Dose: 5 mg/hr, 5 mls/hr Documented by: Lactulose (Lactulose 10 Gm /15 Ml Udc) 30 gm NV DAILY [facility] Last Admin: 03/04/21 12:45 Dose: 30 gm Documented by: Lorazepam (Lorazepam 2 Mg/Ml Vial) 1 mg IVP Q30M PRN; Protocol PRN Reason: CIWA >8 Last Admin: 03/03/21 22:11 Dose: 1 mg Documented by: Metoprolol Tartrate (Metoprolol 5 Mg/5 Ml Vial) 5 mg IVP TID [facility] Last Admin: 03/04/21 14:19 Dose: 5 mg Documented by: Morphine Sulfate (Morphine 2 Mg/Ml Carpuject) 2 mg IVP Q2HR PRN PRN Reason: PAIN Last Admin: 03/04/21 05:24 Dose: 2 mg Documented by: Multi-Ingredient Ointment (Zinc Oxide 20% Oint 30 Gm Tube) 1 applic TOP PRN PRN PRN Reason: Skin Care Last Admin: 03/04/21 05:38 Dose: 1 applic Documented by: Nystatin (Nystatin Cream 15 Gm Tube) 1 applic TOP BID [facility] Last Admin: 03/04/21 10:14 Dose: 1 applic Documented by: Ondansetron HCl (Ondansetron 4 Mg/2 Ml Vial) 4 mg IVP Q6HR PRN PRN Reason: Nausea / Vomiting Pantoprazole Sodium (Pantoprazole 40 Mg Vial) 40 mg IV DAILY [facility] Last Admin: 03/04/21 08:29 Dose: 40 mg Documented by: Sodium Chloride (Sodium Chloride Flush 0.9% 10 Ml Syringe) 10 ml IVP PRN PRN PRN Reason: NEEDED PER PROVIDER ORDERS Last Admin: 03/04/21 07:07 Dose: 10 ml Documented by: Sodium Chloride (Sodium Chloride Flush 0.9% 10 Ml Syringe) 10 ml IVP 0100,0900,1700 [facility] Last Admin: 03/04/21 14:20 Dose: 10 ml Documented by: Zinc Oxide (Cod Liver Oil/Zinc Oxide 113 Gm Tube) 113 gm TOP PRN PRN PRN Reason: Skin Care Last Admin: 03/04/21 10:38 Dose: 1 applic Documented by: Furosemide [Lasix] 20 mg PO DAILY 07/31/20 Propranolol [Inderal] 10 mg PO BID 07/31/20 Spironolactone [Aldactone] 25 mg PO DAILY 07/31/20 Objective - Vital Signs/Intake & Output Reviewed Vital Signs: Yes Vital Signs: Vital Signs x48h Temp Pulse Resp BP BP Pulse Ox 03/04/21 18:00 88 22 113/69 98 03/04/21 17:00 84 22 143/57 H 99 03/04/21 16:00 37.4 C 76 21 134/57 H 97 03/04/21 15:00 79 21 121/55 L 95 03/04/21 14:19 117/66 03/04/21 14:00 88 19 117/66 96 03/04/21 13:00 88 21 124/53 L 96 03/04/21 12:00 37.1 C 85 21 135/55 H 96 03/04/21 11:00 85 19 122/61 98 Intake & Output: Intake & Output 03/01/21 03/02/21 03/03/21 03/04/21 23:59 23:59 23:59 23:59 Intake Total 6248.599 3008.200 2818.991 2101.182 Output Total 4297 3704 4014 2625 Balance 1951.599 -695.800 -1195.009 -523.818 - Objective General Appearance: positive: Other (Eyes open, will speak to me. But then goes back to sleep.) Eyes Bilateral: positive: PERRL, EOMI ENT: positive: Dry mucous membranes Neck: positive: No JVD. negative: Stiff neck Respiratory: positive: No respiratory distress, Wheezes (Not really responsive to albuterol. The wheezing comes and goes. located more in the upper lung lopez. There is no stridor and its not in the neck Not necessarily associated with eating so I do not think is due to aspiration.). negative: Rales, Rhonchi Cardiovascular: positive: Regular rate & rhythm, Systolic murmur. negative: Gallop/S4, Friction rub Abdomen: positive: Non-tender, No organomegaly, Other (Hypoactive bowel sounds in a slightly distended belly, fluid wave barely palpable. Venous superficial perforators of the upper abdominal wall in both upper quadrants noted.). negative: Guarding, Rebound Skin: positive: Warm, Dry, Pallor Extremities: positive: Full ROM, No pedal edema Neurologic/Psychiatric: positive: CN's nml (2-12), Motor nml, Disoriented to person, Disoriented to place, Disoriented to time, Slurred/abnml speech - Lab Results Fish Bones: 03/03/21 04:08 03/04/21 04:53 Other Labs: Lab Results x24hrs 03/04/21 03/03/21 Range/Units 04:53 23:56 Sodium 151 H (135-145) mmol/L Potassium 3.8 4.0 (3.5-5.0) mmol/L Chloride 121 H* (101-111) mmol/L Carbon Dioxide 20 L (21-32) mmol/L Anion Gap 10.0 (6-13) BUN 79 H (6-20) mg/dL Creatinine 3.0 H (0.6-1.2) mg/dL Estimated GFR (MDRD) 21 L (>89) Glucose 127 H (70-100) mg/dL Calcium 8.5 (8.5-10.3) mg/dL Phosphorus 4.7 H 4.2 (2.5-4.6) mg/dL Magnesium 2.0 (1.7-2.8) mg/dL Total Bilirubin 3.3 H (0.2-1.0) mg/dL AST 23 (10-42) IU/L ALT 15 (10-60) IU/L Alkaline Phosphatase 103 (42-121) IU/L Total Protein 5.9 L (6.7-8.2) g/dL Albumin 2.2 L (3.2-5.5) g/dL Globulin 3.7 (2.1-4.2) g/dL Albumin/Globulin Ratio 0.6 L (1.0-2.2) ABX Reporting Has patient been on IV antibiotics over the past 48 hours?: Yes Sepsis Event Note (H) - Evaluation Possible source of Sepsis: positive: Genitourinary, Skin/soft tissue Assessment/Plan - Problem List (1) SVT (supraventricular tachycardia) Impression: Wide-complex tachycardia that was initially read by the home appliance tech as the V. tach. However stat EKG showed that it was just a wide-complex tachycardia and the only "V. tach" was seen in V5. He received adenosine, then diltiazem and diltiazem drip and is converted on his own. Troponins were negative with this episode. Plan: Start Cardizem 30 mg now, discontinue the drip in an hour. Continue to monitor. Continue metoprolol (2) Encephalopathy Impression: The causes of his metabolic encephalopathy are felt to be multifactorial. He has hepatic encephalopathy, possible sepsis, uremic encephalopathy, alcoholic withdrawal, but no stroke is seen on a negative CT. All of these are being treated. He is getting lactulose, antibiotics, IV hydration. His withdrawal has not been severe enough to require high dose benzodiazepines. He has been in the ER since February 28, we admitted him on the evening of March 01. Between then and now, he is slowly but definitely improving. Plan: Continue to stay the course with IV fluids, antibiotics. Rectal lactulose. Emphasis is on judicious use of therapy without aggressive interventions. Daughter has stressed that it is more a palliative approach. DO NOT RESUSCITATE. While he has improved from admission, his mentation is stayed stable for the last 2 days. Continue to support him to see how he does. Once he is overcome his acute medical problems he will be most likely transition to a penitentiary facility. (3) Acute renal failure with hypernatremia, hyperchloremia Impression: That has been gradually improving since his admission through the ER on February 28. He started at 202 BUN. Is down to 93 today. Creatinine started at 10.3 and is down to 3.4 today. On ultrasound, Kidneys are normal in size and echotexture. Right kidney and left kidney with mild bilateral hydronephrosis. No solid masses. A Calix catheter is within an incompletely collapsed urinary bladder. The visible portion of the urinary bladder demonstrates irregular wall and mucosal thickening and internal scarring or septation.. He has a parapelvic cyst in the lower pole of the right kidney. As such, his renal failure is due to partial obstruction what ever is going on with his bladder to cause mild hydroureter, probably enlarged prostate, but most of all, prerenal azotemia from severe dehydration. I do not think he is in hepatorenal failure. 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 Daughter describes him as a binge drinker. 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 She sees him maybe once a month and last saw him about a week and a half ago. His alcohol level was 0 when he came in. However he had been down for a few days in his hotel room so it is unclear when his last drink was. On admission his bilirubin was 4.8. AST 24. ALT 20. Alk phos 149. I suspect if he truly does have end-stage liver disease he has no ability to mount elevated AST or ALT. His last abdominal CT was done in July 2020 for rectal bleeding. The liver was nodular, without focal masses. Upper abdominal varices were seen as well as gastroesophageal varices. There was a recanalized umbilical vein, periumbilical varices. Large spleen. Normal gallbladder with nondilated biliary system. Essentially it was a cirrhotic liver with portal venous hypertension and upper abdominal varices with splenomegaly and moderate ascites. One of the differential diagnosis as the cause of his encephalopathy is infection. Specifically spontaneous bacterial peritonitis. We are treating empirically to see if he responds. On Zosyn Day #4 (started 02/28). Flagyl was s tarted but that is double coverage for bowel. He will also be getting lactulose enemas until he can take p.o. He is getting a banana bag. Once he is more awake will be started on metoprolol, rifaximin p.o. Since he is tolerating mashed potatoes see if we can do oral lactulose, rifaximin, metoprolol, Cardizem, (5) Protein-calorie malnutrition, severe Impression: Severely reduced muscle mass of his arms and legs. Albumin and protein were very low. I would consider doing NG tube feedings while he is unconscious. However with view of the thought process of going more toward palliative than aggressive full intervention, I will hold off on that. He has woken up and started eating some mashed potatoes starting the . Nutrition services is working on what else we can give him for food. aspiration risk. (6) Iron deficiency anemia due to dietary causes Impression: this gentleman has portal HTN and extensive varices. I suspect chronic mild blood loss daily in addition to poor diet would result in this anemia. It is microcytic. AT ths time doesn't meet criteria for transfusion. When awake enough: oral B12, folate and iron. (7) Hypertension Impression: On prn lopressor IV if needed for >180 systolic. Will change to po today. Qualifiers: Hypertension type: primary hypertension Qualified Code(s): I10 - Essential (primary) hypertension (3) Acute renal failure Qualifiers: Qualified Code(s): N17.9 - Acute kidney failure, unspecified
[2021-03-04] MEDS: diltiaZEM 30 MG TABLET PO SCH ×2 (19:43→23:45)
[2021-03-04] MEDS: LORazepam 2 MG/ML VIAL IVP PRN (23:43)
[2021-03-05] MEDS: DEXTROSE 5% 1,000 ML IV SCH ×2 (03:26→15:00)
[2021-03-05] MEDS: SODIUM CHLORIDE FLUSH 0.9% 10 ML SYRINGE IVP PRN ×2 (03:27→06:07)
[2021-03-05] MEDS: MORPHINE 2 MG/ML CARPUJECT IVP PRN (03:27)
[2021-03-05 05:13] LABS: MAGNESIUM 1.8 mg/dL (1.7-2.8); PHOSPHORUS 3.9 mg/dL (2.5-4.6)
[2021-03-05 05:43] LABS: ALBUMIN 2.1 g/dL (3.2-5.5); ALBUMIN/GLOBULIN RATIO 0.5 (1.0-2.2); BILIRUBIN,TOTAL 2.7 mg/dL (0.2-1.0); CREATININE 2.4 mg/dL (0.6-1.2); POTASSIUM 3.3 mmol/L (3.5-5.0)
[2021-03-05] MEDS: diltiaZEM 30 MG TABLET PO SCH ×4 (06:06→23:48)
[2021-03-05] MEDS: METOPROLOL 5 MG/5 ML VIAL IVP SCH (06:07)
[2021-03-05] MEDS: COD LIVER OIL/ZINC OXIDE 113 GM TUBE TOP PRN (06:12)
[2021-03-05] MEDS: POTASSIUM CHLOR 10 MEQ/100 ML 10 MEQ/100 ML BAG IV SCH ×4 (06:46→10:11)
[2021-03-05] MEDS: PIPERACILLIN/TAZOBACTAM 3.375 GM in SODIUM CHLORIDE 0.9% MINIBAG 100 ML IV SCH ×2 (07:45→19:42)
[2021-03-05] MEDS ORDERED: LACTULOSE 10 GM /15 ML UDC PO SCH (09:00)
[2021-03-05] MEDS: PANTOPRAZOLE 40 MG VIAL IV SCH (10:14)
[2021-03-05] MEDS: NYSTATIN CREAM 15 GM TUBE TOP SCH ×2 (10:29→21:01)
[2021-03-05] MEDS: SODIUM CHLORIDE FLUSH 0.9% 10 ML SYRINGE IVP SCH ×3 (10:30→19:42)
[2021-03-05] MEDS: PRENATAL VITAMIN TABLET PO SCH (11:51)
[2021-03-05] MEDS: THIAMINE 100 MG TABLET PO SCH (11:52)
[2021-03-05] MEDS: METOPROLOL TARTRATE 25 MG TABLET PO SCH ×2 (12:41→20:44)
--- NOTE | 2021-03-05 13:05 | PROVIDER PROGRESS NOTE ---
Subjective - Prog Note Date Prog Note Date: 03/05/21 Prog Note Time: 13:06 - Subjective Pt reports feeling: Improved Subjective: Nursing and physical therapy were able to get him up to a chair today. He has moderate to severe psychomotor slowing. He hears me, unresponsive but very slowly. But he was able to sit sit up, stand, transition to a chair. He is repetitive favorite thing to say today is "everything is going to be okay". Nursing is able to get him to do oral intake of lactulose and pills. Eating is mashed potatoes. He is having up to 8 bowel movements a day. He has been in sinus rhythm since he converted yesterday. However for short brief episode, he went back into A. fib when we got him back in bed. Current Medications - Current Medications Current Medications: Active Medications Albuterol/Ipratropium (Ipratropium/Albuterol 3 Ml Neb) 3 ml INH Q4HR PRN PRN Reason: Wheezing Last Admin: 03/03/21 13:35 Dose: 3 ml Documented by: Diltiazem HCl (Diltiazem 30 Mg Tablet) 30 mg PO Q6HR [facility] Last Admin: 03/05/21 11:51 Dose: 30 mg Documented by: Piperacillin Sod/Tazobactam (Sod 3.375 gm/ Sodium Chloride) 100 mls @ 25 mls/hr IV Q12H [facility] Last Infusion: 03/05/21 12:15 Dose: Infused Documented by: Dextrose (D5w) 1,000 mls @ 83.333 mls/hr IV .Q12H [facility] Last Infusion: 03/05/21 12:15 Dose: 83.3 mls/hr Documented by: Lactulose (Lactulose 10 Gm /15 Ml Udc) 30 gm PO DAILY [facility] Last Admin: 03/05/21 10:09 Dose: Not Given Documented by: Lorazepam (Lorazepam 2 Mg/Ml Vial) 1 mg IVP Q30M PRN; Protocol PRN Reason: CIWA >8 Last Admin: 03/04/21 23:43 Dose: 1 mg Documented by: Metoprolol Tartrate (Metoprolol Tartrate 25 Mg Tablet) 25 mg PO BID [facility] Last Admin: 03/05/21 12:41 Dose: 25 mg Documented by: Morphine Sulfate (Morphine 2 Mg/Ml Carpuject) 2 mg IVP Q2HR PRN PRN Reason: PAIN Last Admin: 03/05/21 03:27 Dose: 2 mg Documented by: Multi-Ingredient Ointment (Zinc Oxide 20% Oint 30 Gm Tube) 1 applic TOP PRN PRN PRN Reason: Skin Care Last Admin: 03/04/21 05:38 Dose: 1 applic Documented by: Nystatin (Nystatin Cream 15 Gm Tube) 1 applic TOP BID [facility] Last Admin: 03/05/21 10:29 Dose: 1 applic Documented by: Ondansetron HCl (Ondansetron 4 Mg/2 Ml Vial) 4 mg IVP Q6HR PRN PRN Reason: Nausea / Vomiting Pantoprazole Sodium (Pantoprazole 40 Mg Vial) 40 mg IV DAILY [facility] Last Admin: 03/05/21 10:14 Dose: 40 mg Documented by: Multivit/Folic Acid/Iron ( Vitamin Tablet) 1 tab PO DAILYWM [facility] Last Admin: 03/05/21 11:51 Dose: 1 tab Documented by: Sodium Chloride (Sodium Chloride Flush 0.9% 10 Ml Syringe) 10 ml IVP PRN PRN PRN Reason: NEEDED PER PROVIDER ORDERS Last Admin: 03/05/21 06:07 Dose: 10 ml Documented by: Sodium Chloride (Sodium Chloride Flush 0.9% 10 Ml Syringe) 10 ml IVP 0100,0900,1700 [facility] Last Admin: 03/05/21 10:30 Dose: 10 ml Documented by: Thiamine HCl (Thiamine 100 Mg Tablet) 100 mg PO DAILY [facility] Last Admin: 03/05/21 11:52 Dose: 100 mg Documented by: Zinc Oxide (Cod Liver Oil/Zinc Oxide 113 Gm Tube) 113 gm TOP PRN PRN PRN Reason: Skin Care Last Admin: 03/05/21 06:12 Dose: 1 applic Documented by: Furosemide [Lasix] 20 mg PO DAILY 07/31/20 Propranolol [Inderal] 10 mg PO BID 07/31/20 Spironolactone [Aldactone] 25 mg PO DAILY 07/31/20 Objective - Vital Signs/Intake & Output Reviewed Vital Signs: Yes Vital Signs: Vital Signs x48h Temp Pulse Resp BP BP Pulse Ox 03/05/21 12:41 115/62 03/05/21 12:00 36.4 C L 107 H 16 130/68 94 03/05/21 11:51 115/66 03/05/21 11:40 97 19 115/66 97 03/05/21 11:00 88 20 157/69 H 99 03/05/21 10:00 87 17 103/64 98 03/05/21 09:00 87 20 128/59 L 98 03/05/21 08:00 37.5 C 88 18 111/67 99 03/05/21 07:00 79 18 102/67 97 03/05/21 06:07 124/71 03/05/21 06:06 124/71 03/05/21 06:00 36.5 C 90 19 124/71 98 03/05/21 05:00 76 18 103/58 L 98 Intake & Output: Intake & Output 03/02/21 03/03/21 03/04/21 03/05/21 23:59 23:59 23:59 23:59 Intake Total 3008.200 2818.991 3379.799 1407.19 Output Total 3704 4014 3505 1540 Balance -695.800 -1195.009 -125.201 -132.81 - Objective General Appearance: positive: Alert (in that oriented but slow, slow) Eyes Bilateral: positive: PERRL, EOMI, Other (sclera w less edema) ENT: positive: No signs of dehydration Neck: positive: No JVD. negative: Stiff neck Respiratory: positive: No respiratory distress, Wheezes (worse when laying down but still faint and scattered sitting in the chair. No increased resp effort with this. no dullness, no egophony) Cardiovascular: positive: Regular rate & rhythm, Systolic murmur. negative: Tachycardia, Gallop/S4, Friction rub Abdomen: positive: Non-tender, No organomegaly, Nml bowel sounds, No distention, Other (fluid wave and varicosities of abd wall) Skin: positive: Warm, Dry Extremities: positive: Full ROM, Pedal edema Neurologic/Psychiatric: positive: Oriented x3, CN's nml (2-12), Slurred/abnml speech. negative: Motor nml (psychomotor slowing improving but still very slow to respond. But his responses are in context and appropriate) - Lab Results Fish Bones: 03/03/21 04:08 03/05/21 13:11 Other Labs: Lab Results x24hrs 03/05/21 03/05/21 Range/Units 04:48 04:48 Sodium 143 (135-145) mmol/L Potassium 3.3 L (3.5-5.0) mmol/L Chloride 112 H (101-111) mmol/L Carbon Dioxide 22 (21-32) mmol/L Anion Gap 9.0 (6-13) BUN 63 H (6-20) mg/dL Creatinine 2.4 H (0.6-1.2) mg/dL Estimated GFR (MDRD) 27 L (>89) Glucose 122 H (70-100) mg/dL Calcium 8.0 L (8.5-10.3) mg/dL Phosphorus 3.9 (2.5-4.6) mg/dL Magnesium 1.8 (1.7-2.8) mg/dL Total Bilirubin 2.7 H (0.2-1.0) mg/dL AST 19 (10-42) IU/L ALT 15 (10-60) IU/L Alkaline Phosphatase 100 (42-121) IU/L Total Protein 6.0 L (6.7-8.2) g/dL Albumin 2.1 L (3.2-5.5) g/dL Globulin 3.9 (2.1-4.2) g/dL Albumin/Globulin Ratio 0.5 L (1.0-2.2) ABX Reporting Has patient been on IV antibiotics over the past 48 hours?: Yes Sepsis Event Note (H) - Evaluation Possible source of Sepsis: positive: Genitourinary, Skin/soft tissue Assessment/Plan - Problem List (1) SVT (supraventricular tachycardia) Impression: 03/03 Wide-complex tachycardia that was initially read by the certified dialysis technician as the V. tach. However stat EKG showed that it was just a wide-complex tachycardia and the only "V. tach" was seen in V5. He received adenosine, then diltiazem and diltiazem drip and is converted on his own by early 03/04. Troponins were negative with this episode. He then went into afib again getting back into bed early afternoon for a brief time. Plan: Continue Cardizem 30 mg po q 6h, dilt drip stopped 03/04, today add metoprolol oral 25 po bid and continue prn IV. Continue to monitor. He is not a candidate for anticoagulation. (2) Encephalopathy Impression: The causes of his metabolic encephalopathy are felt to be multifactorial. He has hepatic encephalopathy, possible sepsis, uremic encephalopathy, alcoholic withdrawal, but no stroke is seen on a negative CT. All of these are being treated. He is getting lactulose, antibiotics, IV hydration. His withdrawal has not been severe enough to require high dose benzodiazepines. He has been in the ER since February 28, we admitted him on the evening of March 01. Between then and now, he continues to improve. Great to see him sitting up but psychomotor slowing still there. I don't know what he was at baseline in the world outside the hospital Plan: Continue to stay the course with IV fluids, antibiotics. Now on oral lactulose w 8 BMs a day. Emphasis is on judicious use of therapy without aggressive interventions. Daughter has stressed that it is more a palliative approach. DO NOT RESUSCITATE. Change lactulose to 10 grams a day PT ordered for eval and tx today. (3) Acute renal failure with hypernatremia, hyperchloremia Impression: That has been gradually improving since his admission through the ER on February 28. He started at 202 BUN. Is down to 63 today. Creatinine started at 10.3 and is down to 2.4 today. On ultrasound, Kidneys are normal in size and echotexture. Right kidney and left kidney with mild bilateral hydronephrosis. No solid masses. A Calix catheter is within an incompletely collapsed urinary bladder. The visible portion of the urinary bladder demonstrates irregular wall and mucosal thickening and internal scarring or septation.. He has a parapelvic cyst in the lower pole of the right kidney. As such, his renal failure is due to partial obstruction with what ever is going on with his bladder to cause mild hydroureter, probably enlarged prostate, but most of his renal failure is prerenal azotemia from severe dehydration. I do not think he is in hepatorenal failure. Sodium on admission was 133. He peaked at 151 yesterday. Today he is 143. 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 Daughter describes him as a binge drinker. 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 She sees him maybe once a month and last saw him about a week and a half ago. His alcohol level was 0 when he came in. However he had been down for a few days in his hotel room so it is unclear when his last drink was. On admission his bilirubin was 4.8. AST 24. ALT 20. Alk phos 149. I suspect if he truly does have end-stage liver disease he has no ability to mount elevated AST or ALT. His last abdominal CT was done in July 2020 for rectal bleeding. The liver was nodular, without focal masses. Upper abdominal varices were seen as well as gastroesophageal varices. There was a recanalized umbilical vein, periumbilical varices. Large spleen. Normal gallbladder with nondilated biliary system. Essentially it was a cirrhotic liver with portal venous hypertension and upper abdominal varices with splenomegaly and moderate ascites. One of the differential diagnosis as the cause of his encephalopathy is infection. Specifically spontaneous bacterial peritonitis. We are treating empirically to see if he responds. On Zosyn Day #5 (started 02/28). Flagyl was started but that is double coverage for bowel. Now on oral lactulose. I will add oral metoprolol today. Add rifaximin one off zosyn. (5) Protein-calorie malnutrition, severe Impression: Severely reduced muscle mass of his arms and legs. Albumin and protein were very low. I considered doing NG tube feedings while he was unconscious. However with view of the thought process of going more toward palliative than aggressive full intervention, I will held off on that. He has woken up and started eating some mashed potatoes starting the . Nutrition services is working on what else we can give him for food. aspiration risk. (6) Iron deficiency anemia due to dietary causes Impression: this gentleman has portal HTN and extensive varices. I suspect chronic mild blood loss daily in addition to poor diet would result in this anemia. It is microcytic. AT ths time doesn't meet criteria for transfusion. Now on oral B12, folate and iron with his vitamins. (7) Hypertension Impression: On prn lopressor IV if needed for >180 systolic. Will change to po today for his afib rate control and continue the cardizem. Qualifiers: Hypertension type: primary hypertension Qualified Code(s): I10 - Essential (primary) hypertension (8) Wheezing He has been wheezing almost since admission. Worse with laying down, better when he sits up. On today's exam still has faint scattered wheezes. Respirator y therapy states that he does not really improve with nebulizers. He tells us that he is never been a smoker. I am dubious of that claim. X-ray was done on the because of wheezing and the increased respiratory effort. He had cardiomegaly and mild pulmonary vascular congestion. He received 2 doses of Lasix and that respiratory distress resolved. He has an echocardiogram that shows an ejection fraction of greater than 75%. Diastolic function is indeterminate. He has normal right ventricle size and function so I am not presuming pulmonary hypertension. Mild mitral regurgitation. As such the wheezing may be due to simple fluid overload in this end-stage cirrhotic patient who is received a lot of IV fluids for hydration. It responded to Lasix. But no congestive heart failure. It still may be wheezing from COPD but that is a problem that I cannot verify for him.
[2021-03-06] MEDS: DEXTROSE 5% 1,000 ML IV SCH (02:04)
[2021-03-06] MEDS: diltiaZEM 30 MG TABLET PO SCH ×3 (05:36→17:51)
[2021-03-06] MEDS: LACTULOSE 10 GM /15 ML UDC PO SCH (08:36)
[2021-03-06] MEDS: PRENATAL VITAMIN TABLET PO SCH (08:36)
[2021-03-06] MEDS: METOPROLOL TARTRATE 25 MG TABLET PO SCH ×2 (08:36→21:06)
[2021-03-06] MEDS: PIPERACILLIN/TAZOBACTAM 3.375 GM in SODIUM CHLORIDE 0.9% MINIBAG 100 ML IV SCH (08:36)
[2021-03-06] MEDS: THIAMINE 100 MG TABLET PO SCH (08:37)
[2021-03-06] MEDS: SODIUM CHLORIDE FLUSH 0.9% 10 ML SYRINGE IVP SCH ×3 (08:37→21:07)
[2021-03-06] MEDS: PANTOPRAZOLE 40 MG VIAL IV SCH (08:37)
[2021-03-06] MEDS: NYSTATIN CREAM 15 GM TUBE TOP SCH ×2 (12:23→21:06)
--- NOTE | 2021-03-06 17:08 | PROVIDER PROGRESS NOTE ---
Subjective - Prog Note Date Prog Note Date: 03/06/21 Prog Note Time: 17:00 - Subjective Pt reports feeling: Improved Subjective: He tells me that there is no pain right now. He is very cooperative. Working with physical therapy today. No bursts of arrhythmia. He is again wheezing very loudly. Tells me that he is not short of breath. "I always do this" Current Medications - Current Medications Current Medications: Active Medications Albuterol/Ipratropium (Ipratropium/Albuterol 3 Ml Neb) 3 ml INH Q4HR PRN PRN Reason: Wheezing Last Admin: 03/03/21 13:35 Dose: 3 ml Documented by: Diltiazem HCl (Diltiazem 30 Mg Tablet) 30 mg PO Q6HR [facility] Last Admin: 03/06/21 12:21 Dose: 30 mg Documented by: Lactulose (Lactulose 10 Gm /15 Ml Udc) 10 gm PO DAILY [facility] Last Admin: 03/06/21 08:36 Dose: 10 gm Documented by: Lorazepam (Lorazepam 2 Mg/Ml Vial) 1 mg IVP Q30M PRN; Protocol PRN Reason: CIWA >8 Last Admin: 03/04/21 23:43 Dose: 1 mg Documented by: Metoprolol Tartrate (Metoprolol Tartrate 25 Mg Tablet) 25 mg PO BID [facility] Last Admin: 03/06/21 08:36 Dose: 25 mg Documented by: Morphine Sulfate (Morphine 2 Mg/Ml Carpuject) 2 mg IVP Q2HR PRN PRN Reason: PAIN Last Admin: 03/05/21 03:27 Dose: 2 mg Documented by: Multi-Ingredient Ointment (Zinc Oxide 20% Oint 30 Gm Tube) 1 applic TOP PRN PRN PRN Reason: Skin Care Last Admin: 03/04/21 05:38 Dose: 1 applic Documented by: Nystatin (Nystatin Cream 15 Gm Tube) 1 applic TOP BID [facility] Last Admin: 03/06/21 12:23 Dose: Not Given Documented by: Ondansetron HCl (Ondansetron 4 Mg/2 Ml Vial) 4 mg IVP Q6HR PRN PRN Reason: Nausea / Vomiting Pantoprazole Sodium (Pantoprazole 40 Mg Tablet) 40 mg PO QDAC [facility] Multivit/Folic Acid/Iron ( Vitamin Tablet) 1 tab PO DAILYWM [facility] Last Admin: 03/06/21 08:36 Dose: 1 tab Documented by: Sodium Chloride (Sodium Chloride Flush 0.9% 10 Ml Syringe) 10 ml IVP PRN PRN PRN Reason: NEEDED PER PROVIDER ORDERS Last Admin: 03/05/21 06:07 Dose: 10 ml Documented by: Sodium Chloride (Sodium Chloride Flush 0.9% 10 Ml Syringe) 10 ml IVP 0100,0900,1700 [facility] Last Admin: 03/06/21 08:37 Dose: 10 ml Documented by: Thiamine HCl (Thiamine 100 Mg Tablet) 100 mg PO DAILY [facility] Last Admin: 03/06/21 08:37 Dose: 100 mg Documented by: Zinc Oxide (Cod Liver Oil/Zinc Oxide 113 Gm Tube) 113 gm TOP PRN PRN PRN Reason: Skin Care Last Admin: 03/05/21 06:12 Dose: 1 applic Documented by: Furosemide [Lasix] 20 mg PO DAILY 07/31/20 Propranolol [Inderal] 10 mg PO BID 07/31/20 Spironolactone [Aldactone] 25 mg PO DAILY 07/31/20 Objective - Vital Signs/Intake & Output Reviewed Vital Signs: Yes Vital Signs: Vital Signs x48h Temp Pulse Pulse Resp BP BP BP 03/06/21 16:00 36.6 C 89 22 110/53 L 03/06/21 15:00 88 20 141/53 H 03/06/21 14:00 87 21 101/45 L 03/06/21 13:00 86 20 127/60 03/06/21 12:21 134/66 H 03/06/21 12:00 36.7 C 80 16 134/66 H 03/06/21 11:00 81 81 20 131/69 H 126/61 03/06/21 10:00 76 19 124/59 L Pulse Ox 03/06/21 16:00 96 03/06/21 15:00 98 03/06/21 14:00 97 03/06/21 13:00 96 03/06/21 12:21 03/06/21 12:00 98 03/06/21 11:00 98 03/06/21 10:00 96 Intake & Output: Intake & Output 03/03/21 03/04/21 03/05/21 03/06/21 23:59 23:59 23:59 23:59 Intake Total 2818.991 3379.799 2716.40 1991.833 Output Total 4018 6215 2390 1430 Balance -1195.009 -125.201 326.40 561.833 - Objective General Appearance: positive: Alert, Other (He speaks to me appropriately. Answers questions appropriately. A little forgetful. But psychomotor slowing is severe. Answers are very slow with lots of pauses in between words. Sitting up is a exercise in patients for us. And having him stand and walk to the bathroom takes a very, very long) Eyes Bilateral: positive: PERRL, EOMI ENT: positive: No signs of dehydration Neck: positive: No JVD. negative: Stiff neck Respiratory: positive: No respiratory distress, Wheezes Cardiovascular: positive: Regular rate & rhythm, Systolic murmur. negative: Gallop/S4, Friction rub Abdomen: positive: Non-tender, No organomegaly, Nml bowel sounds, No distention, Other (I am not feeling a fluid wave today And he continues to have superficial nonbulging varicosities of the abdominal wall and bilateral upper quadrant). negative: Guarding, Rebound Skin: positive: Warm, Dry Extremities: positive: Full ROM, No pedal edema Neurologic/Psychiatric: positive: CN's nml (2-12), Disoriented to time, Slurred/abnml speech. negative: Motor nml (Slow movement, ataxic, still mildly encephalopathic) - Lab Results Fish Bones: 03/03/21 04:08 03/05/21 13:11 ABX Reporting Has patient been on IV antibiotics over the past 48 hours?: Yes Sepsis Event Note (H) - Evaluation Possible source of Sepsis: positive: Genitourinary, Skin/soft tissue Assessment/Plan - Problem List (1) SVT (supraventricular tachycardia) Impression: 03/03 Wide-complex tachycardia that was initially read by the accounts payable technician as the V. tach. However stat EKG showed that it was just a wide-complex tachycardia and the only "V. tach" was seen in V5. He received adenosine, then diltiazem and diltiazem drip and is converted on his own by early 03/04. Troponins were negative with this episode. 03/05 He then went into afib again getting back into bed early afternoon for a brief time. Plan: Continue Cardizem 30 mg po q 6h, dilt drip stopped 03/04, 03/05 added metoprolol oral 25 po bid and continue prn IV. Continue to monitor. He is not a candidate for anticoagulation. (2) Encephalopathy slowly improving Impression: The causes of his metabolic encephalopathy are felt to be multifactorial. He h as hepatic encephalopathy, possible sepsis, uremic encephalopathy, alcoholic withdrawal, but no stroke is seen on a negative CT. All of these are being treated. He is getting lactulose, antibiotics, IV hydration. His withdrawal has not been severe enough to require high dose benzodiazepines. He has been in the ER since February 28, we admitted him on the evening of March 01. Between then and now, he continues to improve. PT had been able to get him up to chair 03/05 and today he was walked to the bathroom for bowel movement. Needs standby assist with a walker. Slow , slow , slow to move. He has been on IV fluids to avoid dehydration. I had him on lactulose but that resulted in 8 bowel movements a day. So I decrease his lactulose to 10 g a day. Today's the first day he is getting beyond that. Had 4 bowel movements on day shift and for bowel movements on disk and tape machine tender. This morning we are waiting to see. Plan: Stop antibiotics today Continue lactulose 10 g a day Stop IV fluids Continue with physical therapy treatment (3) Acute renal failure with hypernatremia, hyperchloremia Impression: That has been gradually improving since his admission through the ER on February 28. He started at 202 BUN. Is down to 63 by 03/05. Creatinine started at 10.3 and is down to 2.4 on 03/05. I did not do labs today since he is improving. On ultrasound, Kidneys are normal in size and echotexture. Right kidney and left kidney with mild bilateral hydronephrosis. No solid masses. A Calix catheter is within an incompletely collapsed urinary bladder. The visible portion of the urinary bladder demonstrates irregular wall and mucosal thickenin g and internal scarring or septation.. He has a parapelvic cyst in the lower pole of the right kidney. As such, his renal failure is due to partial obstruction with what ever is going on with his bladder to cause mild hydroureter, probably enlarged prostate, but most of his renal failure is prerenal azotemia from severe dehydration. I do not think he is in hepatorenal failure. Sodium on admission was 133. He peaked at 151 and by March 05 he was 143. Plan: stop IVF today. Check labs tomorrow and maybe every other day to reduce blood draws. 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 Daughter describes him as a binge drinker. 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 She sees him maybe once a month and last saw him about a week and a half ago. His alcohol level was 0 when he came in. However he had been down for a few days in his hotel room so it is unclear when his last drink was. On admission his bilirubin was 4.8. AST 24. ALT 20. Alk phos 149. I suspect if he truly does have end-stage liver disease he has no ability to mount elevated AST or ALT. His last abdominal CT was done in July 2020 for rectal bleeding. The liver was nodular, without focal masses. Upper abdominal varices were seen as well as gastroesophageal varices. There was a recanalized umbilical vein, periumbilical varices. Large spleen. Normal gallbladder with nondilated biliary system. Essentially it was a cirrhotic liver with portal venous hypertension and upper abdominal varices with splenomegaly and moderate ascites. One of the differential diagnosis as the cause of his encephalopathy is infection. Specifically spontaneous bacterial peritonitis. We are treating empirically to see if he responds. On Zosyn Day #6 (started 02/28). Flagyl was started but that is double coverage for bowel. On oral lactulose and metoprolol. Stop Zosyn today. He has positive blood cultures with staph but they were positive greater than 48 hours and I think they are contaminant. In the next 24 to 48 hours consider adding rifaximin. (5) Protein-calorie malnutrition, severe Impression: Severely reduced muscle mass of his arms and legs. Albumin and protein were very low. I considered doing NG tube feedings while he was unconscious. However with view of the thought process of going more toward palliative than aggressive full intervention, I will held off on that. He has woken up and started eating some mashed potatoes starting the . Nutrition services is working on what else we can give him for food. aspiration risk. (6) Iron deficiency anemia due to dietary causes Impression: this gentleman has portal HTN and extensive varices. I suspect chronic mild blood loss daily in addition to poor diet would result in this anemia. It is microcytic. AT ths time doesn't meet criteria for transfusion. Now on oral B12, folate and iron with his vitamins. (7) Hypertension Impression: On prn lopressor IV if needed for >180 systolic. He is on p.o. Cardizem and metoprolol to control his atrial fibrillation. Heart rate is in the 80s. Blood pressure has been anywhere between 101 systolic and as high as 141 systolic today. Qualifiers: Hypertension type: primary hypertension Qualified Code(s): I10 - Essential (primary) hypertension (8) Wheezing He has been wheezing almost since admission. Worse with laying down, better when he sits up. On exam still has faint scattered wheezes. Respiratory therapy states that he does not really improve with nebulizers. He tells us that he is never been a smoker. I am dubious of that claim. X-ray was done on the because of wheezing and the increased respiratory effort. He had cardiomegaly and mild pulmonary vascular congestion. He received 2 doses of Lasix and that respiratory distress resolved. He has an echocardiogram that shows an ejection fraction of greater than 75%. Diastolic function is indetermi juanita. He has normal right ventricle size and function so I am not presuming pulmonary hypertension. Mild mitral regurgitation. As such the wheezing may be due to simple fluid overload in this end-stage cirrhotic patient who is received a lot of IV fluids for hydration. It responded to Lasix. But no congestive heart failure. It still may be wheezing from COPD but that is a problem that I cannot verify for him.
[2021-03-06] MEDS: ZINC OXIDE 20% OINT 30 GM TUBE TOP PRN (21:06)
[2021-03-07] MEDS: diltiaZEM 30 MG TABLET PO SCH ×2 (00:04→06:36)
[2021-03-07] MEDS: PANTOPRAZOLE 40 MG TABLET PO SCH (06:36)
[2021-03-07 08:12] LABS: BASOPHILS % (AUTO) 0.2 %; EOSINOPHILS # (AUTO) 0.4 10^3/uL (0.0-0.7); EOSINOPHILS % (AUTO) 2.4 %; HCT - HEMATOCRIT 28.5 % (42.0-52.0); HGB - HEMOGLOBIN 8.8 g/dL (14.0-18.0); LYMPHOCYTES # (AUTO) 1.3 10^3/uL (1.5-3.5); LYMPHOCYTES % (AUTO) 7.2 %; MEAN CORPUSCULAR HEMOGLOBIN 24.8 pg (27.0-31.0); MEAN CORPUSCULAR HGB CONC 30.9 g/dL (32.0-36.0); MEAN CORPUSCULAR VOLUME 80.3 fL (80.0-94.0); MEAN PLATELET VOLUME 10.7 fL (7.4-11.4); MONOCYTES # (AUTO) 1.5 10^3/uL (0.0-1.0); MONOCYTES % (AUTO) 8.2 %; NEUTROPHILS # (AUTO) 14.8 10^3/uL (1.5-6.6); NEUTROPHILS % (AUTO) 81.4 %; PLT - PLATELET COUNT 144 10^3/uL (130-450); RED BLOOD COUNT 3.55 10^6/uL (4.70-6.10); RED CELL DISTRIBUTION WIDTH 27.6 % (12.0-15.0); WHITE BLOOD COUNT 18.1 x10^3/uL (4.8-10.8)
[2021-03-07] MEDS: PRENATAL VITAMIN TABLET PO SCH (08:12)
[2021-03-07] MEDS: LACTULOSE 10 GM /15 ML UDC PO SCH (08:13)
[2021-03-07] MEDS: THIAMINE 100 MG TABLET PO SCH (08:13)
[2021-03-07] MEDS: METOPROLOL TARTRATE 25 MG TABLET PO SCH ×2 (08:13→21:24)
[2021-03-07 08:15] LABS: SLIDE REVIEW? Indicated
[2021-03-07 08:20] LABS: CALCIUM 8.7 mg/dL (8.5-10.3); CREATININE 1.4 mg/dL (0.6-1.2); POTASSIUM 3.9 mmol/L (3.5-5.0)
[2021-03-07] MEDS: SODIUM CHLORIDE FLUSH 0.9% 10 ML SYRINGE IVP SCH ×2 (08:24→19:13)
[2021-03-07 08:58] LABS: PLATELET ESTIMATE, MANUAL NORMAL (130-450,000) (NORMAL); PLATELET MORPHOLOGY NORMAL APPEARANCE (NORMAL)
[2021-03-07 08:59] LABS: WBC MORPHOLOGY (MULTIPLE) NORMAL APPEARANCE (NORMAL)
[2021-03-07] MEDS: ZINC OXIDE 20% OINT 30 GM TUBE TOP PRN ×2 (09:07→16:32)
[2021-03-07] MEDS: NYSTATIN CREAM 15 GM TUBE TOP SCH ×2 (09:08→21:25)
[2021-03-07 09:43] LABS: MAGNESIUM 1.7 mg/dL (1.7-2.8); PHOSPHORUS 2.3 mg/dL (2.5-4.6)
[2021-03-07] MEDS ORDERED: MAGNESIUM OXIDE 400 MG TABLET PO ONE (10:21)
--- NOTE | 2021-03-07 11:05 | XRAY Report ---
PROCEDURE: Chest 1 View X-Ray INDICATIONS: wheezing TECHNIQUE: One view of the chest was acquired. COMPARISON: 03/03/2021 FINDINGS: Surgical changes and devices: None. Lungs and pleura: No pleural effusions or pneumothorax. Lungs are clear. Mediastinum: Mediastinal contours appear normal. Heart size is normal. Bones and chest wall: No suspicious bony lesions. Overlying soft tissues appear unremarkable. IMPRESSION: No acute cardiopulmonary pathology. Reviewed by: Matty Philip MD on 03/07/2021 11:04 AM PDT Approved by: Matty Philip MD on 03/07/2021 11:04 AM PDT Station ID: [id number]
--- NOTE | 2021-03-07 11:37 | PROVIDER PROGRESS NOTE ---
Assessment/Plan - Problem List (1) SVT (supraventricular tachycardia) Assessment/Plan: 03/07 resolved. switch to Cardizem CD 120mg From 30mg PO every 6 hours, Continue metoprolol, Continue telemetry and vital signs Monitor, patient is not a candidate for anticoagulation for history of hepatic failure, and high risk of fall. (2) Encephalopathy slowly improving pt is alert and oriented on today, continue improved. Continue lactulose 10 g a day, Continue with physical therapy treatment (3) Acute renal failure with hypernatremia, hyperchloremia Significantly improved, patient creatinine today is 1.4 from 10.3 at admission. Hypernatremia and hyperchloremia are both resolved. 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 Daughter describes him as a binge drinker. Essentially it was a cirrhotic liver with portal venous hypertension and upper abdominal varices with splenomegaly and moderate ascites. 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 pt has Significantly elevated WBC In the admission. One of the differential diagnosis as the cause of his encephalopathy is infection. Specifically spontaneous bacterial peritonitis. pt was treated On Zosyn Day #6 (started 02/28), and Zosyn was stopped on yesterday. Pt had elevated WBC again but pt has no fever, no acute abdominal pain or tenderness or distress. Since pt is Lactulose, his mental status has significantly improved and we will not consider to add rifaximin at this time, We will also check ammonia level. we will add Levaquin to prevention of Peritonitis, And patient st ill continue wheezy in his lung sounds (5) Protein-calorie malnutrition, severe Impression: Patient already started with soft diet, it seems patient tolerated, will continue consult with lining parts sewer (6) Iron deficiency anemia due to dietary causes Impression: Hemoglobin is 8.8, stable. this gentleman has portal HTN and extensive varices. I suspect chronic mild blood loss daily in addition to poor diet would result in this anemia. It is microcytic. AT ths time doesn't meet criteria for transfusion. Now on oral B12, folate and iron with his vitamins. (7) Hypertension Impression: stable, He is on p.o. Cardizem and metoprolol to control his atrial fibrillation. Heart rate is in the 80s. (8) Wheezing Patient still present wheezy, as patient reported this is a chronic condition. New chest x-ray show no acute process. Patient had a 96% oxygen saturation on room air, patient has no respiratory distress at this time. We will continue DuoNeb for his COPD. Continue closely monitor patient respiratory status. (9)weakness Patient still present weakness. We will continue physical therapist and occupational therapist, will consult with social work, likely patient need a SNF for the training of strength and prevention of fall - Current Meds Current Meds: Current Medications Generic Name Dose Route Start Last Admin Trade Name Freq PRN Reason Stop Dose Admin Albuterol/Ipratropium 3 ml 03/02/21 06:57 03/03/21 13:35 Ipratropium/Albuterol 3 Ml Neb INH 3 ml Q4HR PRN Administration Wheezing Lactulose 10 gm 03/06/21 09:00 03/07/21 08:13 Lactulose 10 Gm /15 Ml Udc PO 10 gm DAILY TRACI Administration Lorazepam 1 mg 03/01/21 21:22 03/04/21 23:43 Lorazepam 2 Mg/Ml Vial IVP 1 mg Q30M PRN Administration CIWA >8 Protocol Metoprolol Tartrate 25 mg 03/05/21 13:00 03/07/21 08:13 Metoprolol Tartrate 25 Mg Tablet PO 25 mg BID TRACI Administration Morphine Sulfate 2 mg 03/03/21 00:20 03/05/21 03:27 Morphine 2 Mg/Ml Carpuject IVP 2 mg Q2HR PRN Administration PAIN Multi-Ingredient Ointment 1 applic 03/02/21 03:51 03/07/21 09:07 Zinc Oxide 20% Oint 30 Gm Tube TOP 1 applic PRN PRN Administration Skin Care Nystatin 1 applic 03/02/21 09:00 03/07/21 09:08 Nystatin Cream 15 Gm Tube TOP Not Given BID TRACI Pantoprazole Sodium 40 mg 03/07/21 07:00 03/07/21 06:36 Pantoprazole 40 Mg Tablet PO 40 mg QDAC TRACI Administration Multivit/Folic Acid/Iron 1 tab 03/05/21 12:00 03/07/21 08:12 Vitamin Tablet PO 1 tab DAILYWM TRACI Administration Sodium Chloride 10 ml 03/01/21 21:15 03/05/21 06:07 Sodium Chloride Flush 0.9% 10 Ml Syringe IVP 10 ml PRN PRN Administration NEEDED PER PROVIDER ORDERS Sodium Chloride 10 ml 03/02/21 01:00 03/07/21 08:24 Sodium Chloride Flush 0.9% 10 Ml Syringe IVP 20 ml 0100,0900,1700 TRACI Administration Thiamine HCl 100 mg 03/05/21 12:00 03/07/21 08:13 Thiamine 100 Mg Tablet PO 100 mg DAILY TRACI Administration Zinc Oxide 113 gm 03/01/21 22:30 03/05/21 06:12 Cod Liver Oil/Zinc Oxide 113 Gm Tube TOP 1 applic PRN PRN Administration Skin Care - Lab Result Fish Bone Diagrams: 03/07/21 08:01 03/07/21 08:01 - Additional Planning My Orders: My Active Orders 03/07/21 07:40 Blood Culture [CULTURE, BLOOD #1] [RM] Urgent 03/07/21 08:01 Blood Culture [CULTURE, BLOOD #2] [RM] Urgent 03/07/21 11:00 [id number] CD [Cardizem Cd] 120 mg PO DAILY levoFLOXacin [Levaquin] 500 mg PO DAILY 03/07/21 Lunch Soft Mechanical Diet [DIET] 03/08/21 05:00 BMP - BASIC METABOLIC PANEL [CHEM] DAILYLAB CBC - COMP BLD CT W/AUTO DIFF [HEME] DAILYLAB PHOSPHORUS [CHEM] DAILYLAB 03/09/21 05:00 BMP - BASIC METABOLIC PANEL [CHEM] DAILYLAB CBC - COMP BLD CT W/AUTO DIFF [HEME] DAILYLAB PHOSPHORUS [CHEM] DAILYLAB 03/10/21 05:00 BMP - BASIC METABOLIC PANEL [CHEM] DAILYLAB CBC - COMP BLD CT W/AUTO DIFF [HEME] DAILYLAB 03/11/21 05:00 BMP - BASIC METABOLIC PANEL [CHEM] DAILYLAB CBC - COMP BLD CT W/AUTO DIFF [HEME] DAILYLAB 03/12/21 05:00 BMP - BASIC METABOLIC PANEL [CHEM] DAILYLAB CBC - COMP BLD CT W/AUTO DIFF [HEME] DAILYLAB Subjective - Subjective Patient Reports: Feeling Better Objective Vital Signs: Vital Signs - 24 hr 03/06/21 03/06/21 03/06/21 12:00 12:21 13:00 Temperature 36.7 C Heart Rate Heart Rate [ 80 86 Monitoring electrodes] Respiratory 16 20 Rate Blood Pressure 134/66 H Blood Pressure 134/66 H 127/60 [Left Brachial artery] O2 Saturation 98 96 03/06/21 03/06/21 03/06/21 14:00 15:00 16:00 Temperature 36.6 C Heart Rate Heart Rate [ 87 88 89 Monitoring electrodes] Respiratory 21 20 22 Rate Blood Pressure Blood Pressure 101/45 L 141/53 H 110/53 L [Left Brachial artery] O2 Saturation 97 98 96 03/06/21 03/06/21 03/06/21 17:00 17:51 17:54 Temperature Heart Rate Heart Rate [ 95 92 Monitoring electrodes] Respiratory 25 H 23 Rate Blood Pressure 122/57 L Blood Pressure 135/69 H 122/57 L [Left Brachial artery] O2 Saturation 97 97 03/06/21 03/06/21 03/06/21 19:00 19:50 20:00 Temperature 37.4 C Heart Rate Heart Rate [ 90 88 Monitoring electrodes] Respiratory 20 21 Rate Blood Pressure Blood Pressure 125/64 132/62 H [Left Brachial artery] O2 Saturation 96 98 03/06/21 03/06/21 03/06/21 21:00 21:06 22:00 Temperature Heart Rate Heart Rate [ 89 86 Monitoring electrodes] Respiratory 23 23 Rate Blood Pressure 102/53 L Blood Pressure 102/53 L 102/53 L [Left Brachial artery] O2 Saturation 97 96 03/06/21 03/07/21 03/07/21 23:00 00:00 00:04 Temperature 36.6 C Heart Rate Heart Rate [ 87 87 Monitoring electrodes] Respiratory 21 21 Rate Blood Pressure 126/68 Blood Pressure 111/56 L 126/68 [Left Brachial artery] O2 Saturation 96 98 03/07/21 03/07/21 03/07/21 01:00 02:00 03:00 Temperature Heart Rate Heart Rate [ 84 78 75 Monitoring electrodes] Respiratory 24 24 21 Rate Blood Pressure Blood Pressure 126/63 107/74 118/60 [Left Brachial artery] O2 Saturation 96 100 94 03/07/21 03/07/21 03/07/21 04:00 05:00 06:00 Temperature 36.5 C Heart Rate Heart Rate [ 78 77 85 Monitoring electrodes] Respiratory 20 22 20 Rate Blood Pressure Blood Pressure 129/60 136/94 H 128/63 [Left Brachial artery] O2 Saturation 96 95 96 03/07/21 03/07/21 03/07/21 06:36 07:00 07:49 Temperature 36.5 C Heart Rate Heart Rate [ 832 H 83 Monitoring electrodes] Respiratory 96 H 28 H Rate Blood Pressure 128/63 Blood Pressure 146/66 H 107/55 L [Left Brachial artery] O2 Saturation 96 03/07/21 03/07/21 03/07/21 08:13 08:30 09:00 Temperature Heart Rate 87 Heart Rate [ 74 Monitoring electrodes] Respiratory 20 15 Rate Blood Pressure 107/55 L Blood Pressure 121/58 L [Left Brachial artery] O2 Saturation 96 03/07/21 10:00 Temperature Heart Rate Heart Rate [ 71 Monitoring electrodes] Respiratory 20 Rate Blood Pressure Blood Pressure 104/59 L [Left Brachial artery] O2 Saturation 95 Oxygen O2 Source [With Activity] Room air O2 Source Room air I&O (Last 24 Hrs): Intake and Output Totals x24h 03/05/21 03/06/21 03/07/21 23:59 23:59 23:59 Intake Total 2716.40 2531.833 520 Output Total 2390 1915 915 Balance 326.40 616.833 -395 General: Alert, Oriented x3, Cooperative, No acute distress HEENT: Atraumatic Neck: Supple Lymphatic: no adenopathy Neuro: Alert, Non Focal, Oriented Times 3 Cardiovascular: Regular rate, Normal S1, Normal S2 Respiratory: Chest non-tender, No respiratory distress Abdomen: Normal bowel sounds, Soft Extremities: Normal pulses - Results Results: Laboratory Results WBC 18.1 x10^3/uL (4.8-10.8) H 03/07/21 08:01 RBC 3.55 10^6/uL (4.70-6.10) L 03/07/21 08:01 Hgb 8.8 g/dL (14.0-18.0) L 03/07/21 08:01 Hct 28.5 % (42.0-52.0) L 03/07/21 08:01 MCV 80.3 fL (80.0-94.0) 03/07/21 08:01 MCH 24.8 pg (27.0-31.0) L 03/07/21 08:01 MCHC 30.9 g/dL (32.0-36.0) L 03/07/21 08:01 RDW 27.6 % (12.0-15.0) H 03/07/21 08:01 Plt Count 144 10^3/uL (130-450) 03/07/21 08:01 MPV 10.7 fL (7.4-11.4) 03/07/21 08:01 Neut # (Auto) 14.8 10^3/uL (1.5-6.6) H 03/07/21 08:01 Lymph # (Auto) 1.3 10^3/uL (1.5-3.5) L 03/07/21 08:01 [place] # (Auto) 1.5 10^3/uL (0.0-1.0) H 03/07/21 08:01 Eos # (Auto) 0.4 10^3/uL (0.0-0.7) 03/07/21 08:01 Baso # (Auto) 0.0 10^3/uL (0.0-0.1) 03/07/21 08:01 Absolute Nucleated RBC 0.00 x10^3/uL 03/07/21 08:01 Total Counted 100 02/28/21 12:34 Band Neuts % (Manual) Not Reportable 02/28/21 21:44 Abnorm Lymph % (Manual) Not Reportable 02/28/21 21:44 Nucleated RBC % 0.0 /100WBC 03/07/21 08:01 Neutrophils # (Manual) Not Reportable 02/28/21 21:44 Lymphocytes # (Manual) Not Reportable 02/28/21 21:44 Monocytes # (Manual) Not Reportable 02/28/21 21:44 Eosinophils # (Manual) Not Reportable 02/28/21 21:44 Basophils # (Manual) Not Reportable 02/28/21 21:44 Differential Comment MANUAL=AUTO DIFF 02/28/21 21:44 Manual Slide Review Indicated 03/07/21 08:01 WBC Morphology NORMAL APPEARANCE (NORMAL) 03/07/21 08:01 Platelet Estimate NORMAL (130-450,000) (NORMAL) 03/07/21 08:01 Platelet Morphology NORMAL APPEARANCE (NORMAL) 03/07/21 08:01 RBC Morph Micro Appear 3+ ANISOCYTOSIS (NORMAL) 2+ HYPOCHROMASIA (NORMAL) 1+ POLYCHROMASIA (NORMAL) 03/07/21 08:01 RBC Morph Micro Appear 3+ ANISOCYTOSIS (NORMAL) 2+ HYPOCHROMASIA (NORMAL) 1+ POLYCHROMASIA (NORMAL) 03/07/21 08:01 RBC Morph Micro Appear 3+ ANISOCYTOSIS (NORMAL) 2+ HYPOCHROMASIA (NORMAL) 1+ POLYCHROMASIA (NORMAL) 03/07/21 08:01 PT 16.3 secs (9.9-12.6) H 02/28/21 12:34 INR 1.5 (0.8-1.2) H 02/28/21 12:34 APTT 30.2 secs (24.9-33.3) 02/28/21 12:34 Bld Gas Analysis Time 2320 02/28/21 23:15 Sample Site RIGHT RADIAL 02/28/21 23:15 ABG pH 7.41 (7.35-7.45) 02/28/21 23:15 ABG pCO2 20 mmHg (34-45) L* 02/28/21 23:15 ABG pO2 89 mmHg (80-100) 02/28/21 23:15 ABG HCO3 12.5 mmol/L (22.0-26.0) L 02/28/21 23:15 ABG Total CO2 13.1 MMOL/L (21.0-29.0) L 02/28/21 23:15 ABG O2 Saturation 96 % (94-98) 02/28/21 23:15 ABG Base Excess -10.5 mmol/L (-2.0-3.0) L 02/28/21 23:15 Thanh Test POSITIVE 02/28/21 23:15 VBG pH 7.396 (7.31-7.41) 03/02/21 16:45 VBG pCO2 19.0 mmHg (41-51) L 02/28/21 22:02 VBG pO2 75.4 mmHg (25-47) H 02/28/21 22:02 VBG HCO3 11.7 mmol/L (23-28) L 02/28/21 22:02 VBG Total CO2 12.3 mmol/L (24-29) L 02/28/21 22:02 VBG O2 Saturation 93.4 % (60-80) H 02/28/21 22:02 VBG Base Excess -11.0 mmol/L (-2 - +2) L 02/28/21 22:02 Ionized Calcium 1.05 mmol/L (1.15-1.33) L 03/02/21 16:45 O2 Delivery Device NON REBREATHER MASK 02/28/21 23:15 FiO2 21.00 02/28/21 23:15 Sodium 138 mmol/L (135-145) 03/07/21 08:01 Potassium 3.9 mmol/L (3.5-5.0) 03/07/21 08:01 Chloride 107 mmol/L (101-111) 03/07/21 08:01 Carbon Dioxide 22 mmol/L (21-32) 03/07/21 08:01 Anion Gap 9.0 (6-13) 03/07/21 08:01 BUN 43 mg/dL (6-20) H 03/07/21 08:01 Creatinine 1.4 mg/dL (0.6-1.2) H 03/07/21 08:01 Estimated GFR (MDRD) 50 (>89) L 03/07/21 08:01 Glucose 97 mg/dL (70-100) 03/07/21 08:01 Lactic Acid 2.5 mmol/L (0.5-2.2) H 02/28/21 21:44 Calcium 8.7 mg/dL (8.5-10.3) 03/07/21 08:01 Phosphorus 2.3 mg/dL (2.5-4.6) L 03/07/21 08:01 Magnesium 1.7 mg/dL (1.7-2.8) 03/07/21 08:01 Total Bilirubin 2.7 mg/dL (0.2-1.0) H 03/05/21 04:48 AST 19 IU/L (10-42) 03/05/21 04:48 ALT 15 IU/L (10-60) 03/05/21 04:48 Alkaline Phosphatase 100 IU/L (42-121) 03/05/21 04:48 Ammonia 167.0 umol/L (7-35) H* 02/28/21 12:34 Total Creatine Kinase 36 IU/L (22-269) 02/28/21 12:34 Troponin I High Sens 17.5 ng/L (2.3-19.7) 03/03/21 16:42 B-Natriuretic Peptide 313 pg/mL (5-100) H 03/01/21 02:39 Total Protein 6.0 g/dL (6.7-8.2) L 03/05/21 04:48 Albumin 2.1 g/dL (3.2-5.5) L 03/05/21 04:48 Globulin 3.9 g/dL (2.1-4.2) 03/05/21 04:48 Albumin/Globulin Ratio 0.5 (1.0-2.2) L 03/05/21 04:48 Lipase 251 U/L (22-51) H 02/28/21 21:44 TSH 2.35 uIU/mL (0.34-5.60) 02/28/21 12:34 Free T4 0.69 ng/dL (0.58-1.64) 02/28/21 12:34 Urine Color DARK YELLOW 02/28/21 13:03 Urine Clarity CLOUDY (CLEAR) 02/28/21 13:03 Urine pH 6.0 PH (5.0-7.5) 02/28/21 13:03 Ur Specific [place] 1.015 (1.002-1.030) 02/28/21 13:03 Urine Protein NEGATIVE mg/dL (NEGATIVE) 02/28/21 13:03 Urine Glucose (UA) NEGATIVE mg/dL (NEGATIVE) 02/28/21 13:03 Urine Ketones NEGATIVE mg/dL (NEGATIVE) 02/28/21 13:03 Urine Occult Blood LARGE (NEGATIVE) H 02/28/21 13:03 Urine Nitrite NEGATIVE (NEGATIVE) 02/28/21 13:03 Urine Bilirubin NEGATIVE (NEGATIVE) 02/28/21 13:03 Urine Urobilinogen 1 (NORMAL) E.U./dL (NORMAL) 02/28/21 13:03 Ur Leukocyte Esterase MODERATE (NEGATIVE) H 02/28/21 13:03 Urine RBC 6-10 /HPF (0-5) H 02/28/21 13:03 Urine WBC >25 /HPF (0-3) H 02/28/21 13:03 Ur Squamous Epith Cells NONE SEEN (<= Few) 02/28/21 13:03 Urine Bacteria Few /HPF (None Seen) 02/28/21 13:03 Ur Microscopic Review INDICATED 02/28/21 13:03 Urine Culture Comments INDICATED 02/28/21 13:03 Nasal Adenovirus (PCR) NOT DETECTED 02/28/21 14:05 Nasal B. parapertussis DNA (PCR) NOT DETECTED 02/28/21 14:05 Nasal Coronavir 229E PCR NOT DETECTED 02/28/21 14:05 Nasal Coronavir HKU1 PCR NOT DETECTED 02/28/21 14:05 Nasal Coronavir NL63 PCR NOT DETECTED 02/28/21 14:05 Nasal Coronavir OC43 PCR NOT DETECTED 02/28/21 14:05 Nasal Enterovir/Rhinovir PCR NOT DETECTED 02/28/21 14:05 Nasal Influenza B PCR NOT DETECTED 02/28/21 14:05 Nasal Influenza A PCR NOT DETECTED 02/28/21 14:05 Nasal Parainfluen 1 PCR NOT DETECTED 02/28/21 14:05 Nasal Parainfluen 2 PCR NOT DETECTED 02/28/21 14:05 Nasal Parainfluen 3 PCR NOT DETECTED 02/28/21 14:05 Nasal Parainfluen 4 PCR NOT DETECTED 02/28/21 14:05 Nasal RSV (PCR) NOT DETECTED 02/28/21 14:05 Nasal Screen MRSA (PCR) NEGATIVE (NEGATIVE) 03/01/21 22:00 Nasal B.pertussis DNA PCR NOT DETECTED 02/28/21 14:05 Nasal C.pneumoniae (PCR) NOT DETECTED 02/28/21 14:05 Gregory Human Metapneumo PCR NOT DETECTED 02/28/21 14:05 Nasal M.pneumoniae (PCR) NOT DETECTED 02/28/21 14:05 Nasal SARS-CoV-2 (PCR) NOT DETECTED 02/28/21 14:05 Stl C. diff Tox B Gene NEGATIVE (NEGATIVE) 03/03/21 00:30 Salicylates < 6.0 mg/dL 02/28/21 12:34 Urine Opiates Screen NEGATIVE (NEGATIVE) 02/28/21 13:03 Ur Oxycodone Screen NEGATIVE (NEGATIVE) 02/28/21 13:03 Urine Methadone Screen NEGATIVE (NEGATIVE) 02/28/21 13:03 Ur Propoxyphene Screen NEGATIVE (NEGATIVE) 02/28/21 13:03 Acetaminophen < 10 ug/mL (10-30) L 02/28/21 12:34 Ur Barbiturates Screen NEGATIVE (NEGATIVE) 02/28/21 13:03 Ur Tricyclics Screen NEGATIVE (NEGATIVE) 02/28/21 13:03 Ur Phencyclidine Scrn NEGATIVE (NEGATIVE) 02/28/21 13:03 Ur Amphetamine Screen NEGATIVE (NEGATIVE) 02/28/21 13:03 U Methamphetamines Scrn NEGATIVE (NEGATIVE) 02/28/21 13:03 U Benzodiazepines Scrn NEGATIVE (NEGATIVE) 02/28/21 13:03 Urine Cocaine Screen NEGATIVE (NEGATIVE) 02/28/21 13:03 U Cannabinoids Screen NEGATIVE (NEGATIVE) 02/28/21 13:03 Ethyl Alcohol < 5.0 mg/dL 02/28/21 12:34 - Procedures Procedures: Procedures DRAINAGE OF PERITONEAL CAVITY, PERCUTANEOUS APPROACH, DIAGN (12/19/15) TRANSFUSE NONAUT RED BLOOD CELLS IN PERIPH VEIN, PERC (12/19/15) Sepsis Event Note (H) - Evaluation Possible source of Sepsis: positive: Genitourinary, Skin/soft tissue ABX Reporting Has patient been on IV antibiotics over the past 48 hours?: Yes Current Medications - Current Medications Current Medications: Active Medications Albuterol/Ipratropium (Ipratropium/Albuterol 3 Ml Neb) 3 ml INH Q4HR PRN PRN Reason: Wheezing Last Admin: 03/03/21 13:35 Dose: 3 ml Documented by: Diltiazem HCl (Diltiazem Cd 120 Mg Capsule) 120 mg PO DAILY [facility] Last Admin: 03/07/21 11:41 Dose: 120 mg Documented by: Lactulose (Lactulose 10 Gm /15 Ml Udc) 10 gm PO DAILY [facility] Last Admin: 03/07/21 08:13 Dose: 10 gm Documented by: Levofloxacin (Levofloxacin 250 Mg Tablet) 500 mg PO DAILY [facility] Last Admin: 03/07/21 11:41 Dose: 500 mg Documented by: Lorazepam (Lorazepam 2 Mg/Ml Vial) 1 mg IVP Q30M PRN; Protocol PRN Reason: CIWA >8 Last Admin: 03/04/21 23:43 Dose: 1 mg Documented by: Metoprolol Tartrate (Metoprolol Tartrate 25 Mg Tablet) 25 mg PO BID [facility] Last Admin: 03/07/21 08:13 Dose: 25 mg Documented by: Morphine Sulfate (Morphine 2 Mg/Ml Carpuject) 2 mg IVP Q2HR PRN PRN Reason: PAIN Last Admin: 03/05/21 03:27 Dose: 2 mg Documented by: Multi-Ingredient Ointment (Zinc Oxide 20% Oint 30 Gm Tube) 1 applic TOP PRN PRN PRN Reason: Skin Care Last Admin: 03/07/21 09:07 Dose: 1 applic Documented by: Nystatin (Nystatin Cream 15 Gm Tube) 1 applic TOP BID [facility] Last Admin: 03/07/21 09:08 Dose: Not Given Documented by: Ondansetron HCl (Ondansetron 4 Mg/2 Ml Vial) 4 mg IVP Q6HR PRN PRN Reason: Nausea / Vomiting Pantoprazole Sodium (Pantoprazole 40 Mg Tablet) 40 mg PO QDAC [facility] Last Admin: 03/07/21 06:36 Dose: 40 mg Documented by: Multivit/Folic Acid/Iron ( Vitamin Tablet) 1 tab PO DAILYWM [facility] Last Admin: 03/07/21 08:12 Dose: 1 tab Documented by: Sodium Chloride (Sodium Chloride Flush 0.9% 10 Ml Syringe) 10 ml IVP PRN PRN PRN Reason: NEEDED PER PROVIDER ORDERS Last Admin: 03/05/21 06:07 Dose: 10 ml Documented by: Sodium Chloride (Sodium Chloride Flush 0.9% 10 Ml Syringe) 10 ml IVP 0100,0900,1700 [facility] Last Admin: 03/07/21 08:24 Dose: 20 ml Documented by: Sodium Phosphate (Neutra-Phos 250 Mg Tablet) 250 mg PO Q2H [facility]; Protocol Stop: 03/07/21 16:01 Thiamine HCl (Thiamine 100 Mg Tablet) 100 mg PO DAILY [facility] Last Admin: 03/07/21 08:13 Dose: 100 mg Documented by: Zinc Oxide (Cod Liver Oil/Zinc Oxide 113 Gm Tube) 113 gm TOP PRN PRN PRN Reason: Skin Care Last Admin: 03/05/21 06:12 Dose: 1 applic Documented by: Furosemide [Lasix] 20 mg PO DAILY 07/31/20 Propranolol [Inderal] 10 mg PO BID 07/31/20 Spironolactone [Aldactone] 25 mg PO DAILY 07/31/20
[2021-03-07] MEDS: diltiaZEM CD 120 MG CAPSULE PO SCH (11:41)
[2021-03-07] MEDS: levoFLOXacin 250 MG TABLET PO SCH (11:41)
[2021-03-07] MEDS: NEUTRA-PHOS 250 MG TABLET PO SCH ×2 (14:05→16:08)
[2021-03-08] MEDS: SODIUM CHLORIDE FLUSH 0.9% 10 ML SYRINGE IVP SCH ×3 (04:13→21:04)
[2021-03-08 05:48] LABS: BASOPHILS % (AUTO) 0.2 %; EOSINOPHILS % (AUTO) 1.2 %; HCT - HEMATOCRIT 28.2 % (42.0-52.0); HGB - HEMOGLOBIN 8.6 g/dL (14.0-18.0); LYMPHOCYTES % (AUTO) 4.7 %; MEAN CORPUSCULAR HEMOGLOBIN 24.6 pg (27.0-31.0); MEAN CORPUSCULAR HGB CONC 30.5 g/dL (32.0-36.0); MEAN CORPUSCULAR VOLUME 80.6 fL (80.0-94.0); MONOCYTES % (AUTO) 9.2 %; PLT - PLATELET COUNT 108 10^3/uL (130-450); RED CELL DISTRIBUTION WIDTH 28.2 % (12.0-15.0); WHITE BLOOD COUNT 17.1 x10^3/uL (4.8-10.8)
[2021-03-08 05:57] LABS: ABNORMAL LYMPHS % (MANUAL) 0 %; CREATININE 2.2 mg/dL (0.6-1.2); PHOSPHORUS 3.1 mg/dL (2.5-4.6)
[2021-03-08] MEDS: PANTOPRAZOLE 40 MG TABLET PO SCH (06:15)
[2021-03-08 06:16] LABS: CALCIUM 8.6 mg/dL (8.5-10.3); POTASSIUM 4.1 mmol/L (3.5-5.0)
[2021-03-08 06:36] LABS: BAND NEUTROPHILS % (MANUAL) 3 %; EOSINOPHILS # (MANUAL) 0.7 10^3/uL (0-0.7); LYMPHOCYTES # (MANUAL) 1.2 10^3/uL (1.5-3.5); LYMPHOCYTES % (MANUAL) 7 %; MONOCYTES # (MANUAL) 1.4 10^3/uL (0.0-1.0); NEUTROPHILS # (MANUAL) 13.9 10^3/uL (1.5-6.6)
[2021-03-08 06:37] LABS: DIFFERENTIAL COMMENT MANUAL DIFFERENTIAL; PLATELET ESTIMATE, MANUAL DECREASED (<130,000) (NORMAL)
[2021-03-08] MEDS: PRENATAL VITAMIN TABLET PO SCH (08:13)
[2021-03-08] MEDS: METOPROLOL TARTRATE 25 MG TABLET PO SCH ×2 (08:27→21:03)
[2021-03-08] MEDS: THIAMINE 100 MG TABLET PO SCH (08:27)
[2021-03-08] MEDS: LACTULOSE 10 GM /15 ML UDC PO SCH (08:27)
[2021-03-08] MEDS: diltiaZEM CD 120 MG CAPSULE PO SCH (08:27)
[2021-03-08] MEDS: SODIUM CHLORIDE 0.9% 1,000 ML IV SCH ×2 (08:41→20:58)
[2021-03-08] MEDS: COD LIVER OIL/ZINC OXIDE 113 GM TUBE TOP PRN ×2 (09:00→14:54)
[2021-03-08] MEDS ORDERED: SODIUM CHLORIDE 0.9% 1,000 ML IV SCH (09:00)
[2021-03-08] MEDS: NYSTATIN CREAM 15 GM TUBE TOP SCH (09:04)
[2021-03-08] MEDS: levoFLOXacin 250 MG TABLET PO SCH (10:13)
[2021-03-08] MEDS ORDERED: levoFLOXacin 250 MG TABLET PO SCH (10:13)
--- NOTE | 2021-03-08 11:51 | PROVIDER PROGRESS NOTE ---
Assessment/Plan - Problem List (1) Dehydration Assessment/Plan: 03/08 Clinically patient present dry mouth, dark color urine. Patient had elevated creatinine 2.2 from 1.4 at yesterday. We will remove Fluids restriction, Start with gentle intravenous IV fluids, Precaution of fluids overloaded as well. Continue laboratory and vital signs monitor (2)weakness 03/08 Patient still present significant weakness, will continue physical therapist and occupational therapist consultation. Continue consult with social work for planning disposition. Patient still present weakness. We will continue physical therapist and occupational therapist, will consult with social work, likely patient need a SNF for the training of strength and prevention of fall (3) SVT (supraventricular tachycardia) Assessment/Plan: 03/08 Resolved, Patient is hemodynamically stable, we will switch patient to the medical floor from the ICU on today 03/07 resolved. switch to Cardizem CD 120mg From 30mg PO every 6 hours, Continue metoprolol, Continue telemetry and vital signs Monitor, patient is not a candidate for anticoagulation for history of hepatic failure, and high risk of fall. (4) Encephalopathy slowly improving 03/08. Patient is alert and orientated, encephalopathy is resolved. pt is alert and oriented on today, continue improved. Continue lactulose 10 g a day, Continue with physical therapy treatment (5) Acute renal failure with hypernatremia, hyperchloremia Significantly improved, patient creatinine today is 1.4 from 10.3 at admission. Hypernatremia and hyperchloremia are both resolved. Continue lab test, hold her intravenous IV fluids due to pt present wheezy (6) End stage liver disease Impression: 03/08 Patient feel good, no complaints. WBC is slightly reduce, patient has no fever. Patient ammonia level is in the normal range, patient's encephalopathy is resolved. We will continue levaquin for pt's possible bacterial peritonitis. 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 Daughter describes him as a binge drinker. Essentially it was a cirrhotic liver with portal venous hypertension and upper abdominal varices with splenomegaly and moderate ascites. 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 pt has Significantly elevated WBC In the admission. One of the differential diagnosis as the cause of his encephalopathy is infection. Specifically spontaneous bacterial peritonitis. pt was treated On Zosyn Day #6 (started 02/28), and Zosyn was stopped on yesterday. Pt had elevated WBC again but pt has no fever, no acute abdominal pain or tenderness or distress. Since pt is Lactulose, his mental status has significantly improved and we will not consider to add rifaximin at this time, We will also check ammonia level. we will add Levaquin to prevention of Peritonitis, And patient still continue wheezy in his lung sounds (7) Protein-calorie malnutrition, severe Impression: Patient already started with soft diet, it seems patient tolerated, will continue consult with generator operator (8) Iron deficiency anemia due to dietary causes Impression: Hemoglobin is 8.8, stable. this gentleman has portal HTN and extensive varices. I suspect chronic mild blood loss daily in addition to poor diet would result in this anemia. It is microcytic. AT ths time doesn't meet criteria for t ransfusion. Now on oral B12, folate and iron with his vitamins. (9) Hypertension Impression: stable, He is on p.o. Cardizem and metoprolol to control his atrial fibrillation. Heart rate is in the 80s. (10) Wheezing Patient still present wheezy, as patient reported this is a chronic condition. New chest x-ray show no acute process. Patient had a 96% oxygen saturation on room air, patient has no respiratory distress at this time. We will continue DuoNeb for his COPD. Continue closely monitor patient respiratory status. - Current Meds Current Meds: Current Medications Generic Name Dose Route Start Last Admin Trade Name Freq PRN Reason Stop Dose Admin Albuterol/Ipratropium 3 ml 03/02/21 06:57 03/03/21 13:35 Ipratropium/Albuterol 3 Ml Neb INH 3 ml Q4HR PRN Administration Wheezing Diltiazem HCl 120 mg 03/07/21 11:00 03/08/21 08:27 Diltiazem Cd 120 Mg Capsule PO 120 mg DAILY TRACI Administration Sodium Chloride 1,000 mls @ 83.3 mls/hr 03/08/21 09:00 03/08/21 08:41 Normal Saline 0.9% IV 03/09/21 09:00 83.3 mls/hr .Q12H1M TRACI Administration Lactulose 10 gm 03/06/21 09:00 03/08/21 08:27 Lactulose 10 Gm /15 Ml Udc PO 10 gm DAILY TRACI Administration Metoprolol Tartrate 25 mg 03/05/21 13:00 03/08/21 08:27 Metoprolol Tartrate 25 Mg Tablet PO 25 mg BID TRACI Administration Morphine Sulfate 2 mg 03/03/21 00:20 03/05/21 03:27 Morphine 2 Mg/Ml Carpuject IVP 2 mg Q2HR PRN Administration PAIN Multi-Ingredient Ointment 1 applic 03/02/21 03:51 03/07/21 16:32 Zinc Oxide 20% Oint 30 Gm Tube TOP 1 applic PRN PRN Administration Skin Care Pantoprazole Sodium 40 mg 03/07/21 07:00 03/08/21 06:15 Pantoprazole 40 Mg Tablet PO 40 mg QDAC TRACI Administration Multivit/Folic Acid/Iron 1 tab 03/05/21 12:00 03/08/21 08:13 Vitamin Tablet PO 1 tab DAILYWM TRACI Administration Sodium Chloride 10 ml 03/01/21 21:15 03/05/21 06:07 Sodium Chloride Flush 0.9% 10 Ml Syringe IVP 10 ml PRN PRN Administration NEEDED PER PROVIDER ORDERS Sodium Chloride 10 ml 03/02/21 01:00 03/08/21 08:41 Sodium Chloride Flush 0.9% 10 Ml Syringe IVP 10 ml 0100,0900,1700 TRACI Administration Thiamine HCl 100 mg 03/05/21 12:00 03/08/21 08:27 Thiamine 100 Mg Tablet PO 100 mg DAILY TRACI Administration Zinc Oxide 113 gm 03/01/21 22:30 03/08/21 09:00 Cod Liver Oil/Zinc Oxide 113 Gm Tube TOP 1 applic PRN PRN Administration Skin Care - Lab Result Fish Bone Diagrams: 03/08/21 04:09 03/08/21 04:09 - Additional Planning My Orders: My Active Orders 03/07/21 11:00 diltiaZEM CD [Cardizem Cd] 120 mg PO DAILY 03/07/21 Lunch Soft Mechanical Diet [DIET] 03/07/21 11:57 Nutrition Consult [CONS] Routine 03/08/21 09:00 Sodium Chloride 0.9% [Normal Saline 0.9%] 1,000 ml IV 83.3 mls/hr 03/09/21 05:00 BMP - BASIC METABOLIC PANEL [CHEM] DAILYLAB CBC - COMP BLD CT W/AUTO DIFF [HEME] DAILYLAB PHOSPHORUS [CHEM] DAILYLAB 03/09/21 09:00 levoFLOXacin [Levaquin] 250 mg PO DAILY 03/10/21 05:00 BMP - BASIC METABOLIC PANEL [CHEM] DAILYLAB CBC - COMP BLD CT W/AUTO DIFF [HEME] DAILYLAB 03/11/21 05:00 BMP - BASIC METABOLIC PANEL [CHEM] DAILYLAB CBC - COMP BLD CT W/AUTO DIFF [HEME] DAILYLAB 03/12/21 05:00 BMP - BASIC METABOLIC PANEL [CHEM] DAILYLAB CBC - COMP BLD CT W/AUTO DIFF [HEME] DAILYLAB Subjective - Subjective Patient Reports: Feeling Better Objective Vital Signs: Vital Signs - 24 hr 03/07/21 03/07/21 03/07/21 12:00 13:00 14:00 Temperature 36.4 C L Heart Rate [ 79 84 86 Monitoring electrodes] Respiratory 18 25 H 21 Rate Blood Pressure Blood Pressure 118/57 L 138/70 H 112/61 [Left Brachial artery] O2 Saturation 97 95 99 03/07/21 03/07/21 03/07/21 15:00 16:00 16:30 Temperature 36.5 C Heart Rate [ 82 82 Monitoring electrodes] Respiratory 19 20 Rate Blood Pressure Blood Pressure 123/55 L 121/77 [Left Brachial artery] O2 Saturation 97 100 03/07/21 03/07/21 03/07/21 17:00 18:00 19:00 Temperature Heart Rate [ 92 84 85 Monitoring electrodes] Respiratory 24 21 19 Rate Blood Pressure Blood Pressure 114/69 128/58 L 139/63 H [Left Brachial artery] O2 Saturation 97 96 98 03/07/21 03/07/21 03/07/21 20:00 21:00 21:24 Temperature 36.8 C Heart Rate [ 89 92 Monitoring electrodes] Respiratory 22 23 Rate Blood Pressure 130/60 Blood Pressure 130/62 130/60 [Left Brachial artery] O2 Saturation 98 95 03/07/21 03/07/21 03/08/21 22:00 23:00 00:00 Temperature 36.8 C Heart Rate [ 92 93 94 Monitoring electrodes] Respiratory 22 23 22 Rate Blood Pressure Blood Pressure 131/63 H 121/58 L 111/72 [Left Brachial artery] O2 Saturation 96 94 94 03/08/21 03/08/21 03/08/21 01:00 02:00 03:00 Temperature Heart Rate [ 93 89 92 Monitoring electrodes] Respiratory 24 22 21 Rate Blood Pressure Blood Pressure 120/61 134/62 H 120/64 [Left Brachial artery] O2 Saturation 94 96 94 03/08/21 03/08/21 03/08/21 04:00 05:00 06:12 Temperature 36.5 C Heart Rate [ 93 91 89 Monitoring electrodes] Respiratory 20 20 19 Rate Blood Pressure Blood Pressure 127/68 125/63 115/62 [Left Brachial artery] O2 Saturation 95 94 96 03/08/21 03/08/21 03/08/21 07:00 08:00 08:27 Temperature 36.5 C Heart Rate [ 86 88 Monitoring electrodes] Respiratory 19 19 Rate Blood Pressure 115/60 Blood Pressure 124/56 L 115/60 [Left Brachial artery] O2 Saturation 97 98 03/08/21 09:00 Temperature Heart Rate [ 84 Monitoring electrodes] Respiratory 19 Rate Blood Pressure Blood Pressure 116/65 [Left Brachial artery] O2 Saturation 100 Oxygen O2 Source [With Activity] Room air O2 Source Room air I&O (Last 24 Hrs): Intake and Output Totals x24h 03/06/21 03/07/21 03/08/21 23:59 23:59 23:59 Intake Total 2531.833 1230 1350 Output Total 1915 1065 800 Balance 616.833 165 550 General: Alert, Oriented x3, Cooperative, No acute distress HEENT: Atraumatic, PERRLA Neck: Supple Lymphatic: no adenopathy Neuro: Alert, Non Focal, Oriented Times 3 Cardiovascular: Regular rate, Normal S1, Normal S2 Respiratory: Chest non-tender, No respiratory distress Abdomen: Normal bowel sounds, Soft Extremities: Normal pulses - Results Results: Laboratory Results WBC 17.1 x10^3/uL (4.8-10.8) H 03/08/21 04:09 RBC 3.50 10^6/uL (4.70-6.10) L 03/08/21 04:09 Hgb 8.6 g/dL (14.0-18.0) L 03/08/21 04:09 Hct 28.2 % (42.0-52.0) L 03/08/21 04:09 MCV 80.6 fL (80.0-94.0) 03/08/21 04:09 MCH 24.6 pg (27.0-31.0) L 03/08/21 04:09 MCHC 30.5 g/dL (32.0-36.0) L 03/08/21 04:09 RDW 28.2 % (12.0-15.0) H 03/08/21 04:09 Plt Count 108 10^3/uL (130-450) L 03/08/21 04:09 MPV 10.7 fL (7.4-11.4) 03/07/21 08:01 Neut # (Auto) Not Reportable 03/08/21 04:09 Lymph # (Auto) Not Reportable 03/08/21 04:09 [place] # (Auto) Not Reportable 03/08/21 04:09 Eos # (Auto) Not Reportable 03/08/21 04:09 Baso # (Auto) Not Reportable 03/08/21 04:09 Absolute Nucleated RBC Not Reportable 03/08/21 04:09 Total Counted 100 03/08/21 04:09 Band Neuts % (Manual) 3 % (0-10) 03/08/21 04:09 Abnorm Lymph % (Manual) 0 % 03/08/21 04:09 Nucleated RBC % Not Reportable 03/08/21 04:09 Neutrophils # (Manual) 13.9 10^3/uL (1.5-6.6) H 03/08/21 04:09 Lymphocytes # (Manual) 1.2 10^3/uL (1.5-3.5) L 03/08/21 04:09 Monocytes # (Manual) 1.4 10^3/uL (0.0-1.0) H 03/08/21 04:09 Eosinophils # (Manual) 0.7 10^3/uL (0-0.7) 03/08/21 04:09 Basophils # (Manual) 0.0 10^3/uL (0-0.1) 03/08/21 04:09 Differential Comment MANUAL DIFFERENTIAL 03/08/21 04:09 Manual Slide Review Indicated 03/07/21 08:01 WBC Morphology NORMAL APPEARANCE (NORMAL) 03/07/21 08:01 Platelet Estimate DECREASED (<130,000) (NORMAL) 03/08/21 04:09 Platelet Morphology NORMAL APPEARANCE (NORMAL) 03/07/21 08:01 RBC Morph Micro Appear 3+ ANISOCYTOSIS (NORMAL) 2+ HYPOCHROMASIA (NORMAL) 1+ OVALOCYTES (NORMAL) 03/08/21 04:09 RBC Morph Micro Appear 3+ ANISOCYTOSIS (NORMAL) 2+ HYPOCHROMASIA (NORMAL) 1+ OVALOCYTES (NORMAL) 03/08/21 04:09 RBC Morph Micro Appear 3+ ANISOCYTOSIS (NORMAL) 2+ HYPOCHROMASIA (NORMAL) 1+ OVALOCYTES (NORMAL) 03/08/21 04:09 PT 16.3 secs (9.9-12.6) H 02/28/21 12:34 INR 1.5 (0.8-1.2) H 02/28/21 12:34 APTT 30.2 secs (24.9-33.3) 02/28/21 12:34 Bld Gas Analysis Time 2320 02/28/21 23:15 Sample Site RIGHT RADIAL 02/28/21 23:15 ABG pH 7.41 (7.35-7.45) 02/28/21 23:15 ABG pCO2 20 mmHg (34-45) L* 02/28/21 23:15 ABG pO2 89 mmHg (80-100) 02/28/21 23:15 ABG HCO3 12.5 mmol/L (22.0-26.0) L 02/28/21 23:15 ABG Total CO2 13.1 MMOL/L (21.0-29.0) L 02/28/21 23:15 ABG O2 Saturation 96 % (94-98) 02/28/21 23:15 ABG Base Excess -10.5 mmol/L (-2.0-3.0) L 02/28/21 23:15 Thanh Test POSITIVE 02/28/21 23:15 VBG pH 7.396 (7.31-7.41) 03/02/21 16:45 VBG pCO2 19.0 mmHg (41-51) L 02/28/21 22:02 VBG pO2 75.4 mmHg (25-47) H 02/28/21 22:02 VBG HCO3 11.7 mmol/L (23-28) L 02/28/21 22:02 VBG Total CO2 12.3 mmol/L (24-29) L 02/28/21 22:02 VBG O2 Saturation 93.4 % (60-80) H 02/28/21 22:02 VBG Base Excess -11.0 mmol/L (-2 - +2) L 02/28/21 22:02 Ionized Calcium 1.05 mmol/L (1.15-1.33) L 03/02/21 16:45 O2 Delivery Device NON REBREATHER MASK 02/28/21 23:15 FiO2 21.00 02/28/21 23:15 Sodium 140 mmol/L (135-145) 03/08/21 04:09 Potassium 4.1 mmol/L (3.5-5.0) 03/08/21 04:09 Chloride 107 mmol/L (101-111) 03/08/21 04:09 Carbon Dioxide 22 mmol/L (21-32) 03/08/21 04:09 Anion Gap 11.0 (6-13) 03/08/21 04:09 BUN 52 mg/dL (6-20) H 03/08/21 04:09 Creatinine 2.2 mg/dL (0.6-1.2) H 03/08/21 04:09 Estimated GFR (MDRD) 30 (>89) L 03/08/21 04:09 Glucose 118 mg/dL (70-100) H 03/08/21 04:09 Lactic Acid 2.5 mmol/L (0.5-2.2) H 02/28/21 21:44 Calcium 8.6 mg/dL (8.5-10.3) 03/08/21 04:09 Phosphorus 3.1 mg/dL (2.5-4.6) 03/08/21 04:09 Magnesium 1.9 mg/dL (1.7-2.8) 03/08/21 04:09 Total Bilirubin 2.7 mg/dL (0.2-1.0) H 03/05/21 04:48 AST 19 IU/L (10-42) 03/05/21 04:48 ALT 15 IU/L (10-60) 03/05/21 04:48 Alkaline Phosphatase 100 IU/L (42-121) 03/05/21 04:48 Ammonia 22.0 umol/L (7-35) 03/07/21 11:55 Total Creatine Kinase 36 IU/L (22-269) 02/28/21 12:34 Troponin I High Sens 17.5 ng/L (2.3-19.7) 03/03/21 16:42 B-Natriuretic Peptide 313 pg/mL (5-100) H 03/01/21 02:39 Total Protein 6.0 g/dL (6.7-8.2) L 03/05/21 04:48 Albumin 2.1 g/dL (3.2-5.5) L 03/05/21 04:48 Globulin 3.9 g/dL (2.1-4.2) 03/05/21 04:48 Albumin/Globulin Ratio 0.5 (1.0-2.2) L 03/05/21 04:48 Lipase 251 U/L (22-51) H 02/28/21 21:44 TSH 2.35 uIU/mL (0.34-5.60) 02/28/21 12:34 Free T4 0.69 ng/dL (0.58-1.64) 02/28/21 12:34 Urine Color DARK YELLOW 02/28/21 13:03 Urine Clarity CLOUDY (CLEAR) 02/28/21 13:03 Urine pH 6.0 PH (5.0-7.5) 02/28/21 13:03 Ur Specific [place] 1.015 (1.002-1.030) 02/28/21 13:03 Urine Protein NEGATIVE mg/dL (NEGATIVE) 02/28/21 13:03 Urine Glucose (UA) NEGATIVE mg/dL (NEGATIVE) 02/28/21 13:03 Urine Ketones NEGATIVE mg/dL (NEGATIVE) 02/28/21 13:03 Urine Occult Blood LARGE (NEGATIVE) H 02/28/21 13:03 Urine Nitrite NEGATIVE (NEGATIVE) 02/28/21 13:03 Urine Bilirubin NEGATIVE (NEGATIVE) 02/28/21 13:03 Urine Urobilinogen 1 (NORMAL) E.U./dL (NORMAL) 02/28/21 13:03 Ur Leukocyte Esterase MODERATE (NEGATIVE) H 02/28/21 13:03 Urine RBC 6-10 /HPF (0-5) H 02/28/21 13:03 Urine WBC >25 /HPF (0-3) H 02/28/21 13:03 Ur Squamous Epith Cells NONE SEEN (<= Few) 02/28/21 13:03 Urine Bacteria Few /HPF (None Seen) 02/28/21 13:03 Ur Microscopic Review INDICATED 02/28/21 13:03 Urine Culture Comments INDICATED 02/28/21 13:03 Nasal Adenovirus (PCR) NOT DETECTED 02/28/21 14:05 Nasal B. parapertussis DNA (PCR) NOT DETECTED 02/28/21 14:05 Nasal Coronavir 229E PCR NOT DETECTED 02/28/21 14:05 Nasal Coronavir HKU1 PCR NOT DETECTED 02/28/21 14:05 Nasal Coronavir NL63 PCR NOT DETECTED 02/28/21 14:05 Nasal Coronavir OC43 PCR NOT DETECTED 02/28/21 14:05 Nasal Enterovir/Rhinovir PCR NOT DETECTED 02/28/21 14:05 Nasal Influenza B PCR NOT DETECTED 02/28/21 14:05 Nasal Influenza A PCR NOT DETECTED 02/28/21 14:05 Nasal Parainfluen 1 PCR NOT DETECTED 02/28/21 14:05 Nasal Parainfluen 2 PCR NOT DETECTED 02/28/21 14:05 Nasal Parainfluen 3 PCR NOT DETECTED 02/28/21 14:05 Nasal Parainfluen 4 PCR NOT DETECTED 02/28/21 14:05 Nasal RSV (PCR) NOT DETECTED 02/28/21 14:05 Nasal Screen MRSA (PCR) NEGATIVE (NEGATIVE) 03/01/21 22:00 Nasal B.pertussis DNA PCR NOT DETECTED 02/28/21 14:05 Nasal C.pneumoniae (PCR) NOT DETECTED 02/28/21 14:05 Gregory Human Metapneumo PCR NOT DETECTED 02/28/21 14:05 Nasal M.pneumoniae (PCR) NOT DETECTED 02/28/21 14:05 Nasal SARS-CoV-2 (PCR) NOT DETECTED 02/28/21 14:05 Stl C. diff Tox B Gene NEGATIVE (NEGATIVE) 03/03/21 00:30 Salicylates < 6.0 mg/dL 02/28/21 12:34 Urine Opiates Screen NEGATIVE (NEGATIVE) 02/28/21 13:03 Ur Oxycodone Screen NEGATIVE (NEGATIVE) 02/28/21 13:03 Urine Methadone Screen NEGATIVE (NEGATIVE) 02/28/21 13:03 Ur Propoxyphene Screen NEGATIVE (NEGATIVE) 02/28/21 13:03 Acetaminophen < 10 ug/mL (10-30) L 02/28/21 12:34 Ur Barbiturates Screen NEGATIVE (NEGATIVE) 02/28/21 13:03 Ur Tricyclics Screen NEGATIVE (NEGATIVE) 02/28/21 13:03 Ur Phencyclidine Scrn NEGATIVE (NEGATIVE) 02/28/21 13:03 Ur Amphetamine Screen NEGATIVE (NEGATIVE) 02/28/21 13:03 U Methamphetamines Scrn NEGATIVE (NEGATIVE) 02/28/21 13:03 U Benzodiazepines Scrn NEGATIVE (NEGATIVE) 02/28/21 13:03 Urine Cocaine Screen NEGATIVE (NEGATIVE) 02/28/21 13:03 U Cannabinoids Screen NEGATIVE (NEGATIVE) 02/28/21 13:03 Ethyl Alcohol < 5.0 mg/dL 02/28/21 12:34 - Procedures Procedures: Procedures DRAINAGE OF PERITONEAL CAVITY, PERCUTANEOUS APPROACH, DIAGN (12/19/15) TRANSFUSE NONAUT RED BLOOD CELLS IN PERIPH VEIN, PERC (12/19/15) Sepsis Event Note (H) - Evaluation Possible source of Sepsis: positive: Genitourinary, Skin/soft tissue ABX Reporting Has patient been on IV antibiotics over the past 48 hours?: Yes Current Medications - Current Medications Current Medications: Active Medications Albuterol/Ipratropium (Ipratropium/Albuterol 3 Ml Neb) 3 ml INH Q4HR PRN PRN Reason: Wheezing Last Admin: 03/03/21 13:35 Dose: 3 ml Documented by: Diltiazem HCl (Diltiazem Cd 120 Mg Capsule) 120 mg PO DAILY [facility] Last Admin: 03/08/21 08:27 Dose: 120 mg Documented by: Sodium Chloride (Normal Saline 0.9%) 1,000 mls @ 83.3 mls/hr IV .Q12H1M [facility] Stop: 03/09/21 09:00 Last Admin: 03/08/21 08:41 Dose: 83.3 mls/hr Documented by: Lactulose (Lactulose 10 Gm /15 Ml Udc) 10 gm PO DAILY [facility] Last Admin: 03/08/21 08:27 Dose: 10 gm Documented by: Levofloxacin (Levofloxacin 250 Mg Tablet) 250 mg PO DAILY [facility] Metoprolol Tartrate (Metoprolol Tartrate 25 Mg Tablet) 25 mg PO BID [facility] Last Admin: 03/08/21 08:27 Dose: 25 mg Documented by: Morphine Sulfate (Morphine 2 Mg/Ml Carpuject) 2 mg IVP Q2HR PRN PRN Reason: PAIN Last Admin: 03/05/21 03:27 Dose: 2 mg Documented by: Multi-Ingredient Ointment (Zinc Oxide 20% Oint 30 Gm Tube) 1 applic TOP PRN PRN PRN Reason: Skin Care Last Admin: 03/07/21 16:32 Dose: 1 applic Documented by: Ondansetron HCl (Ondansetron 4 Mg/2 Ml Vial) 4 mg IVP Q6HR PRN PRN Reason: Nausea / Vomiting Pantoprazole Sodium (Pantoprazole 40 Mg Tablet) 40 mg PO QDAC [facility] Last Admin: 03/08/21 06:15 Dose: 40 mg Documented by: Multivit/Folic Acid/Iron ( Vitamin Tablet) 1 tab PO DAILYWM [facility] Last Admin: 03/08/21 08:13 Dose: 1 tab Documented by: Sodium Chloride (Sodium Chloride Flush 0.9% 10 Ml Syringe) 10 ml IVP PRN PRN PRN Reason: NEEDED PER PROVIDER ORDERS Last Admin: 03/05/21 06:07 Dose: 10 ml Documented by: Sodium Chloride (Sodium Chloride Flush 0.9% 10 Ml Syringe) 10 ml IVP 0100,0900,1700 [facility] Last Admin: 03/08/21 08:41 Dose: 10 ml Documented by: Thiamine HCl (Thiamine 100 Mg Tablet) 100 mg PO DAILY [facility] Last Admin: 03/08/21 08:27 Dose: 100 mg Documented by: Zinc Oxide (Cod Liver Oil/Zinc Oxide 113 Gm Tube) 113 gm TOP PRN PRN PRN Reason: Skin Care Last Admin: 03/08/21 09:00 Dose: 1 applic Documented by: Furosemide [Lasix] 20 mg PO DAILY 07/31/20 Propranolol [Inderal] 10 mg PO BID 07/31/20 Spironolactone [Aldactone] 25 mg PO DAILY 07/31/20
[2021-03-09] MEDS: SODIUM CHLORIDE FLUSH 0.9% 10 ML SYRINGE IVP SCH ×3 (00:48→16:56)
[2021-03-09] MEDS: PANTOPRAZOLE 40 MG TABLET PO SCH (06:09)
[2021-03-09 06:19] LABS: BASOPHILS # (AUTO) 0.1 10^3/uL (0.0-0.1); BASOPHILS % (AUTO) 0.4 %; EOSINOPHILS # (AUTO) 0.3 10^3/uL (0.0-0.7); EOSINOPHILS % (AUTO) 1.9 %; HCT - HEMATOCRIT 25.5 % (42.0-52.0); LYMPHOCYTES # (AUTO) 0.8 10^3/uL (1.5-3.5); LYMPHOCYTES % (AUTO) 5.5 %; MEAN CORPUSCULAR HEMOGLOBIN 25.2 pg (27.0-31.0); MEAN CORPUSCULAR HGB CONC 31.4 g/dL (32.0-36.0); MEAN CORPUSCULAR VOLUME 80.4 fL (80.0-94.0); MONOCYTES # (AUTO) 1.6 10^3/uL (0.0-1.0); MONOCYTES % (AUTO) 11.3 %; NEUTROPHILS % (AUTO) 80.5 %; PLT - PLATELET COUNT 114 10^3/uL (130-450); RED BLOOD COUNT 3.17 10^6/uL (4.70-6.10); RED CELL DISTRIBUTION WIDTH 27.9 % (12.0-15.0); WHITE BLOOD COUNT 13.7 x10^3/uL (4.8-10.8)
[2021-03-09 06:27] LABS: PHOSPHORUS 3.4 mg/dL (2.5-4.6)
[2021-03-09 07:55] LABS: DIFFERENTIAL COMMENT MANUAL=AUTO DIFF; PLATELET ESTIMATE, MANUAL DECREASED (<130,000) (NORMAL); PLATELET MORPHOLOGY NORMAL APPEARANCE (NORMAL); RBC MORPHOLOGY (MULTIPLE) 2+ HYPOCHROMASIA (NORMAL)
[2021-03-09 08:31] LABS: ABSOLUTE RETICS # AUTO 0.073 10^6/uL (0.020-0.110); RED BLOOD COUNT 3.15 10^6/uL (4.70-6.10); RETICULOCYTE COUNT % (AUTO) 2.31 % (0.5-2.3)
[2021-03-09 08:48] LABS: % IRON SATURATION 9 % (20-50); IRON 18 ug/dL (45-182); TOTAL IRON BINDING CAPACITY 193 ug/dL (250-450); TRANSFERRIN 138 mg/dL (180-329)
[2021-03-09] MEDS ORDERED: SODIUM CHLORIDE 0.9% 1,000 ML IV SCH (09:00)
--- NOTE | 2021-03-09 09:06 | XRAY Report ---
PROCEDURE: Chest 1 View X-Ray INDICATIONS: sob, wheezing TECHNIQUE: One view of the chest was acquired. COMPARISON: CXR 03/07/2021, 03/03/2021. FINDINGS: Surgical changes and devices: None. Lungs and pleura: No pleural effusions or pneumothorax. Lungs are clear. Mediastinum: Mediastinal contours appear normal. Heart size is prominent. Bones and chest wall: No suspicious bony lesions. Overlying soft tissues appear unremarkable. IMPRESSION: No acute cardiopulmonary abnormality identified. Heart size appears prominent. Reviewed by: Hank Mills MD on 03/09/2021 9:04 AM PDT Approved by: Hank Mills MD on 03/09/2021 9:04 AM PDT Station ID: [id number]
[2021-03-09 09:27] LABS: FERRITIN 110.3 ng/mL (23.9-336.2)
[2021-03-09] MEDS: SODIUM CHLORIDE 0.9% 1,000 ML IV SCH ×3 (09:31→16:55)
[2021-03-09] MEDS: PRENATAL VITAMIN TABLET PO SCH (09:55)
[2021-03-09] MEDS: SACCHAROMYCES BOULARDII 250 MG CAPSULE PO SCH ×2 (09:55→16:56)
[2021-03-09] MEDS: LACTULOSE 10 GM /15 ML UDC PO SCH (09:56)
[2021-03-09] MEDS: THIAMINE 100 MG TABLET PO SCH (09:56)
[2021-03-09] MEDS: diltiaZEM CD 120 MG CAPSULE PO SCH (09:57)
[2021-03-09] MEDS: METOPROLOL TARTRATE 25 MG TABLET PO SCH ×2 (09:57→21:31)
[2021-03-09] MEDS: FERROUS GLUCONATE 324 MG TABLET PO SCH (09:57)
[2021-03-09] MEDS: levoFLOXacin 250 MG TABLET PO SCH (09:57)
[2021-03-09] MEDS: TAMSULOSIN 0.4 MG CAPSULE PO SCH (09:57)
--- NOTE | 2021-03-09 11:08 | PROVIDER PROGRESS NOTE ---
Assessment/Plan - Problem List (1) Dehydration Assessment/Plan: 03/09 Patient's creatinine continue increases. It is likely caused by patient previous dehydration, azotemia. Patient have a good urine out-pt. Chest x-ray is Resolved acute process, patient has stable oxygen saturation. We will increase this intravenous IV fluids, Continue laboratory and vital signs monitor 03/08 Clinically patient present dry mouth, dark color urine. Patient had elevated creatinine 2.2 from 1.4 at yesterday. We will remove Fluids restriction, Start with gentle intravenous IV fluids, Precaution of fluids overloaded as well. Continue laboratory and vital signs monitor (2)weakness 923, we will continue physical and occupational therapist consult, consult with social work for disposition planning. 03/08 Patient still present significant weakness, will continue physical therapist and occupational therapist consultation. Continue consult with social work for planning disposition. Patient still present weakness. We will continue physical therapist and occupational therapist, will consult with social work, likely patient need a SNF for the training of strength and prevention of fall (3) SVT (supraventricular tachycardia) Assessment/Plan: 03/08 Resolved, Patient is hemodynamically stable, we will switch patient to the medical floor from the ICU on today 03/07 resolved. switch to Cardizem CD 120mg From 30mg PO every 6 hours, Continue metoprolol, Continue telemetry and vital signs Monitor, patient is not a candidate for anticoagulation for history of hepatic failure, and high risk of fall. (4) Encephalopathy slowly improving 03/08. Patient is alert and orientated, encephalopathy is resolved. pt is alert and oriented on today, continue improved. Continue lactulose 10 g a day, Continue with physical therapy treatment (5) Acute renal failure with hypernatremia, hyperchloremia Significantly improved, patient creatinine today is 1.4 from 10.3 at admission. Hypernatremia and hyperchloremia are both resolved. Continue lab test, hold her intravenous IV fluids due to pt present wheezy (6) End stage liver disease Impression: 03/08 Patient feel good, no complaints. WBC is slightly reduce, patient has no fever. Patient ammonia level is in the normal range, patient's encephalopathy is resolved. We will continue levaquin for pt's possible bacterial peritonitis. 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 Daughter describes him as a binge drinker. Essentially it was a cirrhotic liver with portal venous hypertension and upper abdominal varices with splenomegaly and moderate ascites. 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 pt has Significantly elevated WBC In the admission. One of the differential diagnosis as the cause of his encephalopathy is infection. Specifically spontaneous bacterial peritonitis. pt was treated On Zosyn Day #6 (started 02/28), and Zosyn was stopped on yesterday. Pt had elevated WBC again but pt has no fever, no acute abdominal pain or tenderness or distress. Since pt is Lactulose, his mental status has significantly improved and we will not consider to add rifaximin at this time, We will also check ammonia level. 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 this gentleman has portal HTN and extensive varices. I suspect chronic mild blood loss daily in addition to poor diet would result in this anemia. It is microcytic. AT ths time doesn't meet criteria for transfusion. Now on oral B12, folate and iron with his vitamins. (9) Hypertension Impression: stable, He is on p.o. Cardizem and metoprolol to control his atrial fibrillation. Heart rate is in the 80s. (10) Wheezing 923, patient still present wheezy, Which likely is as his baseline. Chest x-ray show no acute pulmonary process. Patient still present wheezy, as patient reported this is a chronic condition. New chest x-ray show no acute process. Patient had a 96% oxygen saturation on room air, patient has no respiratory distress at this time. We will continue DuoNeb for his COPD. Continue closely monitor patient respiratory status. - Current Meds Current Meds: Current Medications Generic Name Dose Route Start Last Admin Trade Name Freq PRN Reason Stop Dose Admin Albuterol/Ipratropium 3 ml 03/02/21 06:57 03/03/21 13:35 Ipratropium/Albuterol 3 Ml Neb INH 3 ml Q4HR PRN Administration Wheezing Diltiazem HCl 120 mg 03/07/21 11:00 03/09/21 09:57 Diltiazem Cd 120 Mg Capsule PO 120 mg DAILY TRACI Administration Ferrous Gluconate 324 mg 03/09/21 09:00 03/09/21 09:57 Ferrous Gluconate 324 Mg Tablet PO 324 mg DAILYWM TRACI Administration Lactulose 10 gm 03/06/21 09:00 03/09/21 09:56 Lactulose 10 Gm /15 Ml Udc PO 10 gm DAILY TRACI Administration Levofloxacin 250 mg 03/09/21 09:00 03/09/21 09:57 Levofloxacin 250 Mg Tablet PO 250 mg DAILY TRACI Administration Metoprolol Tartrate 25 mg 03/05/21 13:00 03/09/21 09:57 Metoprolol Tartrate 25 Mg Tablet PO 25 mg BID TRACI Administration Morphine Sulfate 2 mg 03/03/21 00:20 03/05/21 03:27 Morphine 2 Mg/Ml Carpuject IVP 2 mg Q2HR PRN Administration PAIN Multi-Ingredient Ointment 1 applic 03/02/21 03:51 03/07/21 16:32 Zinc Oxide 20% Oint 30 Gm Tube TOP 1 applic PRN PRN Administration Skin Care Pantoprazole Sodium 40 mg 03/07/21 07:00 03/09/21 06:09 Pantoprazole 40 Mg Tablet PO 40 mg QDAC TRACI Administration Multivit/Folic Acid/Iron 1 tab 03/05/21 12:00 03/09/21 09:55 Vitamin Tablet PO 1 tab DAILYWM TRACI Administration Saccharomyces Boulardii 250 mg 03/09/21 09:00 03/09/21 09:55 Saccharomyces Boulardii 250 Mg Capsule PO 250 mg BIDWM TRACI Administration Sodium Chloride 10 ml 03/01/21 21:15 03/05/21 06:07 Sodium Chloride Flush 0.9% 10 Ml Syringe IVP 10 ml PRN PRN Administration NEEDED PER PROVIDER ORDERS Sodium Chloride 10 ml 03/02/21 01:00 03/09/21 00:48 Sodium Chloride Flush 0.9% 10 Ml Syringe IVP Not Given 0100,0900,1700 [facility] Tamsulosin HCl 0.4 mg 03/09/21 09:00 03/09/21 09:57 Tamsulosin 0.4 Mg Capsule PO 0.4 mg DAILY TRACI Administration Thiamine HCl 100 mg 03/05/21 12:00 03/09/21 09:56 Thiamine 100 Mg Tablet PO 100 mg DAILY TRACI Administration Zinc Oxide 113 gm 03/01/21 22:30 03/08/21 14:54 Cod Liver Oil/Zinc Oxide 113 Gm Tube TOP 1 applic PRN PRN Administration Skin Care - Lab Result Fish Bone Diagrams: 03/09/21 05:41 03/09/21 05:41 - Additional Planning My Orders: My Active Orders 03/08/21 14:52 Vital Signs [RC] Q8HR 03/08/21 14:54 Straight Catheter Insertion [RC] ONCE 03/09/21 05:41 FOLATE [IAI] Routine 03/09/21 09:00 Ferrous Gluconate [Fergon] 324 mg PO DAILYWM Saccharomyces Boulardii [Florastor] 250 mg PO BIDWM levoFLOXacin [Levaquin] 250 mg PO DAILY 03/09/21 10:03 Sodium Chloride 0.9% [Normal Saline 0.9%] 1,000 ml IV 100 mls/hr 03/10/21 05:00 BMP - BASIC METABOLIC PANEL [CHEM] DAILYLAB CBC - COMP BLD CT W/AUTO DIFF [HEME] DAILYLAB 03/11/21 05:00 BMP - BASIC METABOLIC PANEL [CHEM] DAILYLAB CBC - COMP BLD CT W/AUTO DIFF [HEME] DAILYLAB 03/12/21 05:00 BMP - BASIC METABOLIC PANEL [CHEM] DAILYLAB CBC - COMP BLD CT W/AUTO DIFF [HEME] DAILYLAB Subjective - Subjective Patient Reports: Feeling Better Objective Vital Signs: Vital Signs - 24 hr 03/08/21 03/08/21 03/08/21 15:35 21:03 23:35 Temperature 37.0 C 37.4 C Heart Rate [ 86 87 Brachial] Respiratory 16 18 Rate Blood Pressure 114/71 Blood Pressure 124/62 130/56 L [Left Brachial artery] O2 Saturation 98 95 03/09/21 03/09/21 08:32 09:57 Temperature 37 C Heart Rate [ 84 Brachial] Respiratory 20 Rate Blood Pressure 121/60 Blood Pressure 121/60 [Left Brachial artery] O2 Saturation 96 Oxygen O2 Source [With Activity] Room air O2 Source Room air I&O (Last 24 Hrs): Intake and Output Totals x24h 03/07/21 03/08/21 03/09/21 23:59 23:59 23:59 Intake Total 1230 4085.493 820 Output Total 1065 1975 Balance 165 2110.493 820 General: Alert, Oriented x3, Cooperative, No acute distress HEENT: Atraumatic Neck: Supple Lymphatic: no adenopathy Neuro: Alert, Non Focal, Oriented Times 3 Cardiovascular: Regular rate, Normal S1, Normal S2 Respiratory: Chest non-tender, No respiratory distress Abdomen: Normal bowel sounds, Soft Extremities: Normal pulses - Results Results: Laboratory Results WBC 13.7 x10^3/uL (4.8-10.8) H 03/09/21 05:41 RBC 3.15 10^6/uL (4.70-6.10) L 03/09/21 05:41 RBC 3.17 10^6/uL (4.70-6.10) L 03/09/21 05:41 Hgb 8.0 g/dL (14.0-18.0) L 03/09/21 05:41 Hct 25.5 % (42.0-52.0) L 03/09/21 05:41 MCV 80.4 fL (80.0-94.0) 03/09/21 05:41 MCH 25.2 pg (27.0-31.0) L 03/09/21 05:41 MCHC 31.4 g/dL (32.0-36.0) L 03/09/21 05:41 RDW 27.9 % (12.0-15.0) H 03/09/21 05:41 Plt Count 114 10^3/uL (130-450) L 03/09/21 05:41 MPV 10.7 fL (7.4-11.4) 03/07/21 08:01 Reticulocyte % (Auto) 2.31 % (0.5-2.3) H 03/09/21 05:41 Neut # (Auto) 11.0 10^3/uL (1.5-6.6) H 03/09/21 05:41 Lymph # (Auto) 0.8 10^3/uL (1.5-3.5) L 03/09/21 05:41 [place] # (Auto) 1.6 10^3/uL (0.0-1.0) H 03/09/21 05:41 Eos # (Auto) 0.3 10^3/uL (0.0-0.7) 03/09/21 05:41 Baso # (Auto) 0.1 10^3/uL (0.0-0.1) 03/09/21 05:41 Absolute Nucleated RBC 0.00 x10^3/uL 03/09/21 05:41 Total Counted 100 03/08/21 04:09 Band Neuts % (Manual) Not Reportable 03/09/21 05:41 Abnorm Lymph % (Manual) Not Reportable 03/09/21 05:41 Nucleated RBC % 0.0 /100WBC 03/09/21 05:41 Neutrophils # (Manual) Not Reportable 03/09/21 05:41 Lymphocytes # (Manual) Not Reportable 03/09/21 05:41 Monocytes # (Manual) Not Reportable 03/09/21 05:41 Eosinophils # (Manual) Not Reportable 03/09/21 05:41 Basophils # (Manual) Not Reportable 03/09/21 05:41 Differential Comment MANUAL=AUTO DIFF 03/09/21 05:41 Manual Slide Review Indicated 03/07/21 08:01 WBC Morphology NORMAL APPEARANCE (NORMAL) 03/07/21 08:01 Platelet Estimate DECREASED (<130,000) (NORMAL) 03/09/21 05:41 Platelet Morphology NORMAL APPEARANCE (NORMAL) 03/09/21 05:41 RBC Morph Micro Appear 2+ HYPOCHROMASIA (NORMAL) 03/09/21 05:41 Absolute Retic 0.073 10^6/uL (0.020-0.110) 03/09/21 05:41 PT 16.3 secs (9.9-12.6) H 02/28/21 12:34 INR 1.5 (0.8-1.2) H 02/28/21 12:34 APTT 30.2 secs (24.9-33.3) 02/28/21 12:34 Bld Gas Analysis Time 2320 02/28/21 23:15 Sample Site RIGHT RADIAL 02/28/21 23:15 ABG pH 7.41 (7.35-7.45) 02/28/21 23:15 ABG pCO2 20 mmHg (34-45) L* 02/28/21 23:15 ABG pO2 89 mmHg (80-100) 02/28/21 23:15 ABG HCO3 12.5 mmol/L (22.0-26.0) L 02/28/21 23:15 ABG Total CO2 13.1 MMOL/L (21.0-29.0) L 02/28/21 23:15 ABG O2 Saturation 96 % (94-98) 02/28/21 23:15 ABG Base Excess -10.5 mmol/L (-2.0-3.0) L 02/28/21 23:15 Thanh Test POSITIVE 02/28/21 23:15 VBG pH 7.396 (7.31-7.41) 03/02/21 16:45 VBG pCO2 19.0 mmHg (41-51) L 02/28/21 22:02 VBG pO2 75.4 mmHg (25-47) H 02/28/21 22:02 VBG HCO3 11.7 mmol/L (23-28) L 02/28/21 22:02 VBG Total CO2 12.3 mmol/L (24-29) L 02/28/21 22:02 VBG O2 Saturation 93.4 % (60-80) H 02/28/21 22:02 VBG Base Excess -11.0 mmol/L (-2 - +2) L 02/28/21 22:02 Ionized Calcium 1.05 mmol/L (1.15-1.33) L 03/02/21 16:45 O2 Delivery Device NON REBREATHER MASK 02/28/21 23:15 FiO2 21.00 02/28/21 23:15 Sodium 131 mmol/L (135-145) L 03/09/21 05:41 Potassium 4.0 mmol/L (3.5-5.0) 03/09/21 05:41 Chloride 102 mmol/L (101-111) 03/09/21 05:41 Carbon Dioxide 19 mmol/L (21-32) L 03/09/21 05:41 Anion Gap 10.0 (6-13) 03/09/21 05:41 BUN 66 mg/dL (6-20) H 03/09/21 05:41 Creatinine 3.0 mg/dL (0.6-1.2) H 03/09/21 05:41 Estimated GFR (MDRD) 21 (>89) L 03/09/21 05:41 Glucose 103 mg/dL (70-100) H 03/09/21 05:41 Lactic Acid 2.5 mmol/L (0.5-2.2) H 02/28/21 21:44 Calcium 8.0 mg/dL (8.5-10.3) L 03/09/21 05:41 Phosphorus 3.4 mg/dL (2.5-4.6) 03/09/21 05:41 Magnesium 1.9 mg/dL (1.7-2.8) 03/08/21 04:09 Iron 18 ug/dL (45-182) L 03/09/21 05:41 TIBC 193 ug/dL (250-450) L 03/09/21 05:41 % Saturation 9 % (20-50) L 03/09/21 05:41 Transferrin 138 mg/dL (180-329) L 03/09/21 05:41 Ferritin 110.3 ng/mL (23.9-336.2) 03/09/21 05:41 Total Bilirubin 2.7 mg/dL (0.2-1.0) H 03/05/21 04:48 AST 19 IU/L (10-42) 03/05/21 04:48 ALT 15 IU/L (10-60) 03/05/21 04:48 Alkaline Phosphatase 100 IU/L (42-121) 03/05/21 04:48 Ammonia 22.0 umol/L (7-35) 03/07/21 11:55 Lactate Dehydrogenase 135 IU/L (91-225) 03/09/21 05:41 Total Creatine Kinase 36 IU/L (22-269) 02/28/21 12:34 Troponin I High Sens 17.5 ng/L (2.3-19.7) 03/03/21 16:42 B-Natriuretic Peptide 313 pg/mL (5-100) H 03/01/21 02:39 Total Protein 6.0 g/dL (6.7-8.2) L 03/05/21 04:48 Albumin 2.1 g/dL (3.2-5.5) L 03/05/21 04:48 Globulin 3.9 g/dL (2.1-4.2) 03/05/21 04:48 Albumin/Globulin Ratio 0.5 (1.0-2.2) L 03/05/21 04:48 Lipase 251 U/L (22-51) H 02/28/21 21:44 Vitamin B12 1216 pg/mL (180-914) H 03/09/21 05:41 TSH 2.35 uIU/mL (0.34-5.60) 02/28/21 12:34 Free T4 0.69 ng/dL (0.58-1.64) 02/28/21 12:34 Urine Color DARK YELLOW 02/28/21 13:03 Urine Clarity CLOUDY (CLEAR) 02/28/21 13:03 Urine pH 6.0 PH (5.0-7.5) 02/28/21 13:03 Ur Specific [place] 1.015 (1.002-1.030) 02/28/21 13:03 Urine Protein NEGATIVE mg/dL (NEGATIVE) 02/28/21 13:03 Urine Glucose (UA) NEGATIVE mg/dL (NEGATIVE) 02/28/21 13:03 Urine Ketones NEGATIVE mg/dL (NEGATIVE) 02/28/21 13:03 Urine Occult Blood LARGE (NEGATIVE) H 02/28/21 13:03 Urine Nitrite NEGATIVE (NEGATIVE) 02/28/21 13:03 Urine Bilirubin NEGATIVE (NEGATIVE) 02/28/21 13:03 Urine Urobilinogen 1 (NORMAL) E.U./dL (NORMAL) 02/28/21 13:03 Ur Leukocyte Esterase MODERATE (NEGATIVE) H 02/28/21 13:03 Urine RBC 6-10 /HPF (0-5) H 02/28/21 13:03 Urine WBC >25 /HPF (0-3) H 02/28/21 13:03 Ur Squamous Epith Cells NONE SEEN (<= Few) 02/28/21 13:03 Urine Bacteria Few /HPF (None Seen) 02/28/21 13:03 Ur Microscopic Review INDICATED 02/28/21 13:03 Urine Culture Comments INDICATED 02/28/21 13:03 Nasal Adenovirus (PCR) NOT DETECTED 02/28/21 14:05 Nasal B. parapertussis DNA (PCR) NOT DETECTED 02/28/21 14:05 Nasal Coronavir 229E PCR NOT DETECTED 02/28/21 14:05 Nasal Coronavir HKU1 PCR NOT DETECTED 02/28/21 14:05 Nasal Coronavir NL63 PCR NOT DETECTED 02/28/21 14:05 Nasal Coronavir OC43 PCR NOT DETECTED 02/28/21 14:05 Nasal Enterovir/Rhinovir PCR NOT DETECTED 02/28/21 14:05 Nasal Influenza B PCR NOT DETECTED 02/28/21 14:05 Nasal Influenza A PCR NOT DETECTED 02/28/21 14:05 Nasal Parainfluen 1 PCR NOT DETECTED 02/28/21 14:05 Nasal Parainfluen 2 PCR NOT DETECTED 02/28/21 14:05 Nasal Parainfluen 3 PCR NOT DETECTED 02/28/21 14:05 Nasal Parainfluen 4 PCR NOT DETECTED 02/28/21 14:05 Nasal RSV (PCR) NOT DETECTED 02/28/21 14:05 Nasal Screen MRSA (PCR) NEGATIVE (NEGATIVE) 03/01/21 22:00 Nasal B.pertussis DNA PCR NOT DETECTED 02/28/21 14:05 Nasal C.pneumoniae (PCR) NOT DETECTED 02/28/21 14:05 Gregory Human Metapneumo PCR NOT DETECTED 02/28/21 14:05 Nasal M.pneumoniae (PCR) NOT DETECTED 02/28/21 14:05 Nasal SARS-CoV-2 (PCR) NOT DETECTED 02/28/21 14:05 Stl C. diff Tox B Gene NEGATIVE (NEGATIVE) 03/03/21 00:30 Salicylates < 6.0 mg/dL 02/28/21 12:34 Urine Opiates Screen NEGATIVE (NEGATIVE) 02/28/21 13:03 Ur Oxycodone Screen NEGATIVE (NEGATIVE) 02/28/21 13:03 Urine Methadone Screen NEGATIVE (NEGATIVE) 02/28/21 13:03 Ur Propoxyphene Screen NEGATIVE (NEGATIVE) 02/28/21 13:03 Acetaminophen < 10 ug/mL (10-30) L 02/28/21 12:34 Ur Barbiturates Screen NEGATIVE (NEGATIVE) 02/28/21 13:03 Ur Tricyclics Screen NEGATIVE (NEGATIVE) 02/28/21 13:03 Ur Phencyclidine Scrn NEGATIVE (NEGATIVE) 02/28/21 13:03 Ur Amphetamine Screen NEGATIVE (NEGATIVE) 02/28/21 13:03 U Methamphetamines Scrn NEGATIVE (NEGATIVE) 02/28/21 13:03 U Benzodiazepines Scrn NEGATIVE (NEGATIVE) 02/28/21 13:03 Urine Cocaine Screen NEGATIVE (NEGATIVE) 02/28/21 13:03 U Cannabinoids Screen NEGATIVE (NEGATIVE) 02/28/21 13:03 Ethyl Alcohol < 5.0 mg/dL 02/28/21 12:34 - Procedures Procedures: Procedures DRAINAGE OF PERITONEAL CAVITY, PERCUTANEOUS APPROACH, DIAGN (12/19/15) TRANSFUSE NONAUT RED BLOOD CELLS IN PERIPH VEIN, PERC (12/19/15) Sepsis Event Note (H) - Evaluation Possible source of Sepsis: positive: Genitourinary, Skin/soft tissue ABX Reporting Has patient been on IV antibiotics over the past 48 hours?: Yes Current Medications - Current Medications Current Medications: Active Medications Albuterol/Ipratropium (Ipratropium/Albuterol 3 Ml Neb) 3 ml INH Q4HR PRN PRN Reason: Wheezing Last Admin: 03/03/21 13:35 Dose: 3 ml Documented by: Diltiazem HCl (Diltiazem Cd 120 Mg Capsule) 120 mg PO DAILY [facility] Last Admin: 03/09/21 09:57 Dose: 120 mg Documented by: Ferrous Gluconate (Ferrous Gluconate 324 Mg Tablet) 324 mg PO DAILYWM [facility] Last Admin: 03/09/21 09:57 Dose: 324 mg Documented by: Sodium Chloride (Normal Saline 0.9%) 1,000 mls @ 100 mls/hr IV .Q10H [facility] Stop: 03/10/21 06:02 Lactulose (Lactulose 10 Gm /15 Ml Udc) 10 gm PO DAILY [facility] Last Admin: 03/09/21 09:56 Dose: 10 gm Documented by: Levofloxacin (Levofloxacin 250 Mg Tablet) 250 mg PO DAILY [facility] Last Admin: 03/09/21 09:57 Dose: 250 mg Documented by: Metoprolol Tartrate (Metoprolol Tartrate 25 Mg Tablet) 25 mg PO BID [facility] Last Admin: 03/09/21 09:57 Dose: 25 mg Documented by: Morphine Sulfate (Morphine 2 Mg/Ml Carpuject) 2 mg IVP Q2HR PRN PRN Reason: PAIN Last Admin: 03/05/21 03:27 Dose: 2 mg Documented by: Multi-Ingredient Ointment (Zinc Oxide 20% Oint 30 Gm Tube) 1 applic TOP PRN PRN PRN Reason: Skin Care Last Admin: 03/07/21 16:32 Dose: 1 applic Documented by: Ondansetron HCl (Ondansetron 4 Mg/2 Ml Vial) 4 mg IVP Q6HR PRN PRN Reason: Nausea / Vomiting Pantoprazole Sodium (Pantoprazole 40 Mg Tablet) 40 mg PO QDAC [facility] Last Admin: 03/09/21 06:09 Dose: 40 mg Documented by: Multivit/Folic Acid/Iron ( Vitamin Tablet) 1 tab PO DAILYWM [facility] Last Admin: 03/09/21 09:55 Dose: 1 tab Documented by: Saccharomyces Boulardii (Saccharomyces Boulardii 250 Mg Capsule) 250 mg PO BIDWM [facility] Last Admin: 03/09/21 09:55 Dose: 250 mg Documented by: Sodium Chloride (Sodium Chloride Flush 0.9% 10 Ml Syringe) 10 ml IVP PRN PRN PRN Reason: NEEDED PER PROVIDER ORDERS Last Admin: 03/05/21 06:07 Dose: 10 ml Documented by: Sodium Chloride (Sodium Chloride Flush 0.9% 10 Ml Syringe) 10 ml IVP 0100,0900,1700 [facility] Last Admin: 03/09/21 00:48 Dose: Not Given Documented by: Tamsulosin HCl (Tamsulosin 0.4 Mg Capsule) 0.4 mg PO DAILY [facility] Last Admin: 03/09/21 09:57 Dose: 0.4 mg Documented by: Thiamine HCl (Thiamine 100 Mg Tablet) 100 mg PO DAILY [facility] Last Admin: 03/09/21 09:56 Dose: 100 mg Documented by: Zinc Oxide (Cod Liver Oil/Zinc Oxide 113 Gm Tube) 113 gm TOP PRN PRN PRN Reason: Skin Care Last Admin: 03/08/21 14:54 Dose: 1 applic Documented by: Furosemide [Lasix] 20 mg PO DAILY 07/31/20 Propranolol [Inderal] 10 mg PO BID 07/31/20 Spironolactone [Aldactone] 25 mg PO DAILY 07/31/20
[2021-03-10] MEDS: SODIUM CHLORIDE FLUSH 0.9% 10 ML SYRINGE IVP SCH ×3 (03:16→16:37)
[2021-03-10] MEDS: SODIUM CHLORIDE 0.9% 1,000 ML IV SCH ×2 (03:16→13:20)
[2021-03-10 05:47] LABS: BASOPHILS % (AUTO) 0.3 %; EOSINOPHILS # (AUTO) 0.3 10^3/uL (0.0-0.7); EOSINOPHILS % (AUTO) 2.3 %; HCT - HEMATOCRIT 23.3 % (42.0-52.0); HGB - HEMOGLOBIN 7.4 g/dL (14.0-18.0); LYMPHOCYTES # (AUTO) 0.5 10^3/uL (1.5-3.5); LYMPHOCYTES % (AUTO) 4.6 %; MEAN CORPUSCULAR HEMOGLOBIN 24.9 pg (27.0-31.0); MEAN CORPUSCULAR HGB CONC 31.8 g/dL (32.0-36.0); MEAN CORPUSCULAR VOLUME 78.5 fL (80.0-94.0); MONOCYTES # (AUTO) 1.1 10^3/uL (0.0-1.0); MONOCYTES % (AUTO) 10.3 %; NEUTROPHILS # (AUTO) 8.9 10^3/uL (1.5-6.6); NEUTROPHILS % (AUTO) 81.9 %; PLT - PLATELET COUNT 105 10^3/uL (130-450); RED BLOOD COUNT 2.97 10^6/uL (4.70-6.10); RED CELL DISTRIBUTION WIDTH 27.4 % (12.0-15.0); WHITE BLOOD COUNT 10.8 x10^3/uL (4.8-10.8)
[2021-03-10 05:54] LABS: SLIDE REVIEW? Indicated
[2021-03-10 05:57] LABS: CREATININE 3.7 mg/dL (0.6-1.2)
[2021-03-10 06:21] LABS: PLATELET ESTIMATE, MANUAL DECREASED (<130,000) (NORMAL); PLATELET MORPHOLOGY NORMAL APPEARANCE (NORMAL); WBC MORPHOLOGY (MULTIPLE) NORMAL APPEARANCE (NORMAL)
[2021-03-10] MEDS: PANTOPRAZOLE 40 MG TABLET PO SCH (06:26)
[2021-03-10] MEDS: TAMSULOSIN 0.4 MG CAPSULE PO SCH (09:17)
[2021-03-10] MEDS: SACCHAROMYCES BOULARDII 250 MG CAPSULE PO SCH (09:17)
[2021-03-10] MEDS: FERROUS GLUCONATE 324 MG TABLET PO SCH (09:17)
[2021-03-10] MEDS: levoFLOXacin 250 MG TABLET PO SCH (09:17)
[2021-03-10] MEDS: METOPROLOL TARTRATE 25 MG TABLET PO SCH ×2 (09:18→22:05)
[2021-03-10] MEDS: PRENATAL VITAMIN TABLET PO SCH (09:18)
[2021-03-10] MEDS: THIAMINE 100 MG TABLET PO SCH (09:18)
[2021-03-10] MEDS: diltiaZEM CD 120 MG CAPSULE PO SCH (09:18)
[2021-03-10] MEDS: LACTULOSE 10 GM /15 ML UDC PO SCH (09:23)
--- NOTE | 2021-03-10 12:51 | PROVIDER PROGRESS NOTE ---
Assessment/Plan - Problem List (1) Urinary incontinence with continuous leakage Assessment/Plan: 03/09 Patient presented urinary incontinence with continued leakage, bladder scale show patient had over 200 urine in bladder. In the previous Patient asked to remove Mathew, now will put back mathew. Bladder scale show over 200 cc urine in bladder. we will continue Flomax, put Mathew for pt. Monitor urine out-pt. (2) NATALIIA Assessment/Plan: 03/10 pt's creatinine continue elevated although pt was given IVF. we will check US of retro, add mathew, continue IVF, hold nephrotoxic agent, continue lab and vital monitor. 03/09 Patient's creatinine continue increases. It is likely caused by patient previous dehydration, azotemia. Patient have a good urine out-pt. Chest x-ray is Resolved acute process, patient has stable oxygen saturation. We will increase this intravenous IV fluids, Continue laboratory and vital signs monitor 03/08 Clinically patient present dry mouth, dark color urine. Patient had elevated creatinine 2.2 from 1.4 at yesterday. We will remove Fluids re striction, Start with gentle intravenous IV fluids, Precaution of fluids overloaded as well. Continue laboratory and vital signs monitor (3)weakness 03-10 We will continue physical therapist and occupational therapist for patient, continue consult social work for planning disposition [id number], we will continue physical and occupational therapist consult, consult with social work for disposition planning. 03/08 Patient still present significant weakness, will continue physical therapist and occupational therapist consultation. Continue consult with social work for planning disposition. Patient still present weakness. We will continue physical therapist and occupational therapist, will consult with social work, likely patient need a SNF for the training of strength and prevention of fall (4) SVT (supraventricular tachycardia) Assessment/Plan: 03/08 Resolved, Patient is hemodynamically stable, we will switch patient to the medical floor from the ICU on today 03/07 resolved. switch to Cardizem CD 120mg From 30mg PO every 6 hours, Continue metoprolol, Continue telemetry and vital signs Monitor, patient is not a candidate for anticoagulation for history of hepatic failure, and high risk of fall. (5) Encephalopathy slowly improving 03/08. Patient is alert and orientated, encephalopathy is resolved. pt is alert and oriented on today, continue improved. Continue lactulose 10 g a day, Continue with physical therapy treatment (6) Acute renal failure with hypernatremia, hyperchloremia Significantly improved, patient creatinine today is 1.4 from 10.3 at admission. Hypernatremia and hyperchloremia are both resolved. Continue lab test, hold her intravenous IV fluids due to pt present wheezy (7) End stage liver disease Impression: 03/08 Patient feel good, no complaints. WBC is slightly reduce, patient has no fever. Patient ammonia level is in the normal range, patient's encephalopathy is resolved. We will continue levaquin for pt's possible bacterial peritonitis. 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 Daughter describes him as a binge drinker. Essentially it was a cirrhotic liver with portal venous hypertension and upper abdominal varices with splenomegaly and moderate ascites. 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 pt has Significantly elevated WBC In the admission. One of the differential diagnosis as the cause of his encephalopathy is infection. Specifically spontaneous bacterial peritonitis. pt was treated On Zosyn Day #6 (started 02/28), and Zosyn was stopped on yesterday. Pt had elevated WBC again but pt has no fever, no acute abdominal pain or tenderness or distress. Since pt is Lactulose, his mental status has significantly improved and we will not consider to add rifaximin at this time, We will also check a mmonia level. we will add Levaquin to prevention of Peritonitis, And patient still continue wheezy in his lung sounds (8) Protein-calorie malnutrition, severe Impression: Patient already started with soft diet, it seems patient tolerated, will continue consult with career consultant (9) Iron deficiency anemia due to dietary causes Impression: Hemoglobin is 8.8, stable. this gentleman has portal HTN and extensive varices. I suspect chronic mild blood loss daily in addition to poor diet would result in this anemia. It is microcytic. AT ths time doesn't meet criteria for transfusion. Now on oral B12, folate and iron with his vitamins. (10) Hypertension Impression: stable, He is on p.o. Cardizem and metoprolol to control his atrial fibrillation. Heart rate is in the 80s. (11) Wheezing 923, patient still present wheezy, Which likely is as his baseline. Chest x-ray show no acute pulmonary process. Patient still present wheezy, as patient reported this is a chronic condition. New chest x-ray show no acute process. Patient had a 96% oxygen saturation on room air, patient has no respiratory distress at this time. We will continue DuoNeb for his COPD. Continue closely monitor patient respiratory status. - Current Meds Current Meds: Current Medications Generic Name Dose Route Start Last Admin Trade Name Freq PRN Reason Stop Dose Admin Albuterol/Ipratropium 3 ml 03/02/21 06:57 03/03/21 13:35 Ipratropium/Albuterol 3 Ml Neb INH 3 ml Q4HR PRN Administration Wheezing Diltiazem HCl 120 mg 03/07/21 11:00 03/10/21 09:18 Diltiazem Cd 120 Mg Capsule PO 120 mg DAILY TRACI Administration Ferrous Gluconate 324 mg 03/09/21 09:00 03/10/21 09:17 Ferrous Gluconate 324 Mg Tablet PO 324 mg DAILYWM TRACI Administration Lactulose 10 gm 03/06/21 09:00 03/10/21 09:23 Lactulose 10 Gm /15 Ml Udc PO 10 gm DAILY TRACI Administration Metoprolol Tartrate 25 mg 03/05/21 13:00 03/10/21 09:18 Metoprolol Tartrate 25 Mg Tablet PO 25 mg BID TRACI Administration Morphine Sulfate 2 mg 03/03/21 00:20 03/05/21 03:27 Morphine 2 Mg/Ml Carpuject IVP 2 mg Q2HR PRN Administration PAIN Multi-Ingredient Ointment 1 applic 03/02/21 03:51 03/07/21 16:32 Zinc Oxide 20% Oint 30 Gm Tube TOP 1 applic PRN PRN Administration Skin Care Pantoprazole Sodium 40 mg 03/07/21 07:00 03/10/21 06:26 Pantoprazole 40 Mg Tablet PO 40 mg QDAC TRACI Administration Multivit/Folic Acid/Iron 1 tab 03/05/21 12:00 03/10/21 09:18 Vitamin Tablet PO 1 tab DAILYWM TRACI Administration Sodium Chloride 10 ml 03/01/21 21:15 03/05/21 06:07 Sodium Chloride Flush 0.9% 10 Ml Syringe IVP 10 ml PRN PRN Administration NEEDED PER PROVIDER ORDERS Sodium Chloride 10 ml 03/02/21 01:00 03/10/21 09:19 Sodium Chloride Flush 0.9% 10 Ml Syringe IVP 10 ml 0100,0900,1700 TRACI Administration Tamsulosin HCl 0.4 mg 03/09/21 09:00 03/10/21 09:17 Tamsulosin 0.4 Mg Capsule PO 0.4 mg DAILY TRACI Administration Thiamine HCl 100 mg 03/05/21 12:00 03/10/21 09:18 Thiamine 100 Mg Tablet PO 100 mg DAILY TRACI Administration Zinc Oxide 113 gm 03/01/21 22:30 03/08/21 14:54 Cod Liver Oil/Zinc Oxide 113 Gm Tube TOP 1 applic PRN PRN Administration Skin Care - Lab Result Fish Bone Diagrams: 03/10/21 04:21 03/10/21 04:21 - Additional Planning My Orders: My Active Orders 03/10/21 07:58 Bladder Scan [RC] ONCE 03/10/21 08:00 Mathew Continuation and Care [RC] QSHIFT Mathew Insertion [RC] QSHIFT 03/10/21 12:33 Retroperitoneal [US] Routine 03/10/21 13:00 Sodium Chloride 0.9% [Normal Saline 0.9%] 1,000 ml IV 83.333 mls/hr 03/11/21 05:00 BMP - BASIC METABOLIC PANEL [CHEM] DAILYLAB CBC - COMP BLD CT W/AUTO DIFF [HEME] DAILYLAB 03/11/21 09:00 Saccharomyces Boulardii [Florastor] 250 mg PO DAILY 03/12/21 05:00 BMP - BASIC METABOLIC PANEL [CHEM] DAILYLAB CBC - COMP BLD CT W/AUTO DIFF [HEME] DAILYLAB Subjective - Subjective Patient Reports: Feeling Better Objective Vital Signs: Vital Signs - 24 hr 03/09/21 03/09/21 03/09/21 15:55 21:31 23:40 Temperature 37.0 C 36.7 C Heart Rate Heart Rate [ 89 88 Brachial] Respiratory 24 20 Rate Blood Pressure 119/54 L Blood Pressure 130/62 122/56 L [Right Brachial artery] O2 Saturation 100 96 03/10/21 03/10/21 03/10/21 00:11 07:30 09:18 Temperature 36.7 C Heart Rate 90 Heart Rate [ 80 Brachial] Respiratory 18 20 Rate Blood Pressure 128/56 L Blood Pressure 128/56 L [Right Brachial artery] O2 Saturation 97 Oxygen O2 Source [With Activity] Room air O2 Source Room air I&O (Last 24 Hrs): Intake and Output Totals x24h 03/08/21 03/09/21 03/10/21 23:59 23:59 23:59 Intake Total 4085.493 3191.174 1613.333 Output Total 1975 1000 Balance 2110.493 2191.174 1613.333 General: Alert, Oriented x3, Cooperative, No acute distress HEENT: Atraumatic, PERRLA Neck: Supple Lymphatic: no adenopathy Neuro: Alert, Non Focal, Oriented Times 3 Cardiovascular: Regular rate, Normal S1, Normal S2 Respiratory: Chest non-tender, No respiratory distress Abdomen: Normal bowel sounds, Soft, No tenderness Extremities: Normal pulses - Results Results: Laboratory Results WBC 10.8 x10^3/uL (4.8-10.8) 03/10/21 04:21 RBC 2.97 10^6/uL (4.70-6.10) L 03/10/21 04:21 Hgb 7.4 g/dL (14.0-18.0) L 03/10/21 04:21 Hct 23.3 % (42.0-52.0) L 03/10/21 04:21 MCV 78.5 fL (80.0-94.0) L 03/10/21 04:21 MCH 24.9 pg (27.0-31.0) L 03/10/21 04:21 MCHC 31.8 g/dL (32.0-36.0) L 03/10/21 04:21 RDW 27.4 % (12.0-15.0) H 03/10/21 04:21 Plt Count 105 10^3/uL (130-450) L 03/10/21 04:21 MPV 10.7 fL (7.4-11.4) 03/07/21 08:01 Reticulocyte % (Auto) 2.31 % (0.5-2.3) H 03/09/21 05:41 Neut # (Auto) 8.9 10^3/uL (1.5-6.6) H 03/10/21 04:21 Lymph # (Auto) 0.5 10^3/uL (1.5-3.5) L 03/10/21 04:21 [place] # (Auto) 1.1 10^3/uL (0.0-1.0) H 03/10/21 04:21 Eos # (Auto) 0.3 10^3/uL (0.0-0.7) 03/10/21 04:21 Baso # (Auto) 0.0 10^3/uL (0.0-0.1) 03/10/21 04:21 Absolute Nucleated RBC 0.00 x10^3/uL 03/10/21 04:21 Total Counted 100 03/08/21 04:09 Band Neuts % (Manual) Not Reportable 03/09/21 05:41 Abnorm Lymph % (Manual) Not Reportable 03/09/21 05:41 Nucleated RBC % 0.0 /100WBC 03/10/21 04:21 Neutrophils # (Manual) Not Reportable 03/09/21 05:41 Lymphocytes # (Manual) Not Reportable 03/09/21 05:41 Monocytes # (Manual) Not Reportable 03/09/21 05:41 Eosinophils # (Manual) Not Reportable 03/09/21 05:41 Basophils # (Manual) Not Reportable 03/09/21 05:41 Differential Comment MANUAL=AUTO DIFF 03/09/21 05:41 Manual Slide Review Indicated 03/10/21 04:21 WBC Morphology NORMAL APPEARANCE (NORMAL) 03/10/21 04:21 Platelet Estimate DECREASED (<130,000) (NORMAL) 03/10/21 04:21 Platelet Morphology NORMAL APPEARANCE (NORMAL) 03/10/21 04:21 RBC Morph Micro Appear 2+ ANISOCYTOSIS (NORMAL) 1+ POLYCHROMASIA (NORMAL) 1+ HYPOCHROMASIA (NORMAL) 03/10/21 04:21 RBC Morph Micro Appear 2+ ANISOCYTOSIS (NORMAL) 1+ POLYCHROMASIA (NORMAL) 1+ HYPOCHROMASIA (NORMAL) 03/10/21 04:21 RBC Morph Micro Appear 2+ ANISOCYTOSIS (NORMAL) 1+ POLYCHROMASIA (NORMAL) 1+ HYPOCHROMASIA (NORMAL) 03/10/21 04:21 Absolute Retic 0.073 10^6/uL (0.020-0.110) 03/09/21 05:41 PT 16.3 secs (9.9-12.6) H 02/28/21 12:34 INR 1.5 (0.8-1.2) H 02/28/21 12:34 APTT 30.2 secs (24.9-33.3) 02/28/21 12:34 Bld Gas Analysis Time 2320 02/28/21 23:15 Sample Site RIGHT RADIAL 02/28/21 23:15 ABG pH 7.41 (7.35-7.45) 02/28/21 23:15 ABG pCO2 20 mmHg (34-45) L* 02/28/21 23:15 ABG pO2 89 mmHg (80-100) 02/28/21 23:15 ABG HCO3 12.5 mmol/L (22.0-26.0) L 02/28/21 23:15 ABG Total CO2 13.1 MMOL/L (21.0-29.0) L 02/28/21 23:15 ABG O2 Saturation 96 % (94-98) 02/28/21 23:15 ABG Base Excess -10.5 mmol/L (-2.0-3.0) L 02/28/21 23:15 Thanh Test POSITIVE 02/28/21 23:15 VBG pH 7.396 (7.31-7.41) 03/02/21 16:45 VBG pCO2 19.0 mmHg (41-51) L 02/28/21 22:02 VBG pO2 75.4 mmHg (25-47) H 02/28/21 22:02 VBG HCO3 11.7 mmol/L (23-28) L 02/28/21 22:02 VBG Total CO2 12.3 mmol/L (24-29) L 02/28/21 22:02 VBG O2 Saturation 93.4 % (60-80) H 02/28/21 22:02 VBG Base Excess -11.0 mmol/L (-2 - +2) L 02/28/21 22:02 Ionized Calcium 1.05 mmol/L (1.15-1.33) L 03/02/21 16:45 O2 Delivery Device NON REBREATHER MASK 02/28/21 23:15 FiO2 21.00 02/28/21 23:15 Sodium 128 mmol/L (135-145) L 03/10/21 04:21 Potassium 4.0 mmol/L (3.5-5.0) 03/10/21 04:21 Chloride 99 mmol/L (101-111) L 03/10/21 04:21 Carbon Dioxide 18 mmol/L (21-32) L 03/10/21 04:21 Anion Gap 11.0 (6-13) 03/10/21 04:21 BUN 73 mg/dL (6-20) H 03/10/21 04:21 Creatinine 3.7 mg/dL (0.6-1.2) H 03/10/21 04:21 Estimated GFR (MDRD) 16 (>89) L 03/10/21 04:21 Glucose 114 mg/dL (70-100) H 03/10/21 04:21 Lactic Acid 2.5 mmol/L (0.5-2.2) H 02/28/21 21:44 Calcium 8.0 mg/dL (8.5-10.3) L 03/10/21 04:21 Phosphorus 3.4 mg/dL (2.5-4.6) 03/09/21 05:41 Magnesium 1.9 mg/dL (1.7-2.8) 03/08/21 04:09 Iron 18 ug/dL (45-182) L 03/09/21 05:41 TIBC 193 ug/dL (250-450) L 03/09/21 05:41 % Saturation 9 % (20-50) L 03/09/21 05:41 Transferrin 138 mg/dL (180-329) L 03/09/21 05:41 Ferritin 110.3 ng/mL (23.9-336.2) 03/09/21 05:41 Total Bilirubin 2.7 mg/dL (0.2-1.0) H 03/05/21 04:48 AST 19 IU/L (10-42) 03/05/21 04:48 ALT 15 IU/L (10-60) 03/05/21 04:48 Alkaline Phosphatase 100 IU/L (42-121) 03/05/21 04:48 Ammonia 22.0 umol/L (7-35) 03/07/21 11:55 Lactate Dehydrogenase 135 IU/L (91-225) 03/09/21 05:41 Total Creatine Kinase 36 IU/L (22-269) 02/28/21 12:34 Troponin I High Sens 17.5 ng/L (2.3-19.7) 03/03/21 16:42 B-Natriuretic Peptide 313 pg/mL (5-100) H 03/01/21 02:39 Total Protein 6.0 g/dL (6.7-8.2) L 03/05/21 04:48 Albumin 2.1 g/dL (3.2-5.5) L 03/05/21 04:48 Globulin 3.9 g/dL (2.1-4.2) 03/05/21 04:48 Albumin/Globulin Ratio 0.5 (1.0-2.2) L 03/05/21 04:48 Lipase 251 U/L (22-51) H 02/28/21 21:44 Vitamin B12 1216 pg/mL (180-914) H 03/09/21 05:41 Folate 32.00 ng/mL (5.90 - >24.8) 03/09/21 05:41 TSH 2.35 uIU/mL (0.34-5.60) 02/28/21 12:34 Free T4 0.69 ng/dL (0.58-1.64) 02/28/21 12:34 Urine Color DARK YELLOW 02/28/21 13:03 Urine Clarity CLOUDY (CLEAR) 02/28/21 13:03 Urine pH 6.0 PH (5.0-7.5) 02/28/21 13:03 Ur Specific [place] 1.015 (1.002-1.030) 02/28/21 13:03 Urine Protein NEGATIVE mg/dL (NEGATIVE) 02/28/21 13:03 Urine Glucose (UA) NEGATIVE mg/dL (NEGATIVE) 02/28/21 13:03 Urine Ketones NEGATIVE mg/dL (NEGATIVE) 02/28/21 13:03 Urine Occult Blood LARGE (NEGATIVE) H 02/28/21 13:03 Urine Nitrite NEGATIVE (NEGATIVE) 02/28/21 13:03 Urine Bilirubin NEGATIVE (NEGATIVE) 02/28/21 13:03 Urine Urobilinogen 1 (NORMAL) E.U./dL (NORMAL) 02/28/21 13:03 Ur Leukocyte Esterase MODERATE (NEGATIVE) H 02/28/21 13:03 Urine RBC 6-10 /HPF (0-5) H 02/28/21 13:03 Urine WBC >25 /HPF (0-3) H 02/28/21 13:03 Ur Squamous Epith Cells NONE SEEN (<= Few) 02/28/21 13:03 Urine Bacteria Few /HPF (None Seen) 02/28/21 13:03 Ur Microscopic Review INDICATED 02/28/21 13:03 Urine Culture Comments INDICATED 02/28/21 13:03 Nasal Adenovirus (PCR) NOT DETECTED 02/28/21 14:05 Nasal B. parapertussis DNA (PCR) NOT DETECTED 02/28/21 14:05 Nasal Coronavir 229E PCR NOT DETECTED 02/28/21 14:05 Nasal Coronavir HKU1 PCR NOT DETECTED 02/28/21 14:05 Nasal Coronavir NL63 PCR NOT DETECTED 02/28/21 14:05 Nasal Coronavir OC43 PCR NOT DETECTED 02/28/21 14:05 Nasal Enterovir/Rhinovir PCR NOT DETECTED 02/28/21 14:05 Nasal Influenza B PCR NOT DETECTED 02/28/21 14:05 Nasal Influenza A PCR NOT DETECTED 02/28/21 14:05 Nasal Parainfluen 1 PCR NOT DETECTED 02/28/21 14:05 Nasal Parainfluen 2 PCR NOT DETECTED 02/28/21 14:05 Nasal Parainfluen 3 PCR NOT DETECTED 02/28/21 14:05 Nasal Parainfluen 4 PCR NOT DETECTED 02/28/21 14:05 Nasal RSV (PCR) NOT DETECTED 02/28/21 14:05 Nasal Screen MRSA (PCR) NEGATIVE (NEGATIVE) 03/01/21 22:00 Nasal B.pertussis DNA PCR NOT DETECTED 02/28/21 14:05 Nasal C.pneumoniae (PCR) NOT DETECTED 02/28/21 14:05 Gregory Human Metapneumo PCR NOT DETECTED 02/28/21 14:05 Nasal M.pneumoniae (PCR) NOT DETECTED 02/28/21 14:05 Nasal SARS-CoV-2 (PCR) NOT DETECTED 02/28/21 14:05 Stl C. diff Tox B Gene NEGATIVE (NEGATIVE) 03/03/21 00:30 Salicylates < 6.0 mg/dL 02/28/21 12:34 Urine Opiates Screen NEGATIVE (NEGATIVE) 02/28/21 13:03 Ur Oxycodone Screen NEGATIVE (NEGATIVE) 02/28/21 13:03 Urine Methadone Screen NEGATIVE (NEGATIVE) 02/28/21 13:03 Ur Propoxyphene Screen NEGATIVE (NEGATIVE) 02/28/21 13:03 Acetaminophen < 10 ug/mL (10-30) L 02/28/21 12:34 Ur Barbiturates Screen NEGATIVE (NEGATIVE) 02/28/21 13:03 Ur Tricyclics Screen NEGATIVE (NEGATIVE) 02/28/21 13:03 Ur Phencyclidine Scrn NEGATIVE (NEGATIVE) 02/28/21 13:03 Ur Amphetamine Screen NEGATIVE (NEGATIVE) 02/28/21 13:03 U Methamphetamines Scrn NEGATIVE (NEGATIVE) 02/28/21 13:03 U Benzodiazepines Scrn NEGATIVE (NEGATIVE) 02/28/21 13:03 Urine Cocaine Screen NEGATIVE (NEGATIVE) 02/28/21 13:03 U Cannabinoids Screen NEGATIVE (NEGATIVE) 02/28/21 13:03 Ethyl Alcohol < 5.0 mg/dL 02/28/21 12:34 - Procedures Procedures: Procedures DRAINAGE OF PERITONEAL CAVITY, PERCUTANEOUS APPROACH, DIAGN (12/19/15) TRANSFUSE NONAUT RED BLOOD CELLS IN PERIPH VEIN, PERC (12/19/15) Sepsis Event Note (H) - Evaluation Possible source of Sepsis: positive: Genitourinary, Skin/soft tissue ABX Reporting Has patient been on IV antibiotics over the past 48 hours?: No Current Medications - Current Medications Current Medications: Active Medications Albuterol/Ipratropium (Ipratropium/Albuterol 3 Ml Neb) 3 ml INH Q4HR PRN PRN Reason: Wheezing Last Admin: 03/03/21 13:35 Dose: 3 ml Documented by: Diltiazem HCl (Diltiazem Cd 120 Mg Capsule) 120 mg PO DAILY [facility] Last Admin: 03/10/21 09:18 Dose: 120 mg Documented by: Ferrous Gluconate (Ferrous Gluconate 324 Mg Tablet) 324 mg PO DAILYWM [facility] Last Admin: 03/10/21 09:17 Dose: 324 mg Documented by: Sodium Chloride (Normal Saline 0.9%) 1,000 mls @ 83.333 mls/hr IV .Q12H TRACI Stop: 03/11/21 12:59 Lactulose (Lactulose 10 Gm /15 Ml Udc) 10 gm PO DAILY TRACI Last Admin: 03/10/21 09:23 Dose: 10 gm Documented by: Metoprolol Tartrate (Metoprolol Tartrate 25 Mg Tablet) 25 mg PO BID TRACI Last Admin: 03/10/21 09:18 Dose: 25 mg Documented by: Morphine Sulfate (Morphine 2 Mg/Ml Carpuject) 2 mg IVP Q2HR PRN PRN Reason: PAIN Last Admin: 03/05/21 03:27 Dose: 2 mg Documented by: Multi-Ingredient Ointment (Zinc Oxide 20% Oint 30 Gm Tube) 1 applic TOP PRN PRN PRN Reason: Skin Care Last Admin: 03/07/21 16:32 Dose: 1 applic Documented by: Ondansetron HCl (Ondansetron 4 Mg/2 Ml Vial) 4 mg IVP Q6HR PRN PRN Reason: Nausea / Vomiting Pantoprazole Sodium (Pantoprazole 40 Mg Tablet) 40 mg PO QDAC [facility] Last Admin: 03/10/21 06:26 Dose: 40 mg Documented by: Multivit/Folic Acid/Iron ( Vitamin Tablet) 1 tab PO DAILYWM [facility] Last Admin: 03/10/21 09:18 Dose: 1 tab Documented by: Saccharomyces Boulardii (Saccharomyces Boulardii 250 Mg Capsule) 250 mg PO DAILY [facility] Sodium Chloride (Sodium Chloride Flush 0.9% 10 Ml Syringe) 10 ml IVP PRN PRN PRN Reason: NEEDED PER PROVIDER ORDERS Last Admin: 03/05/21 06:07 Dose: 10 ml Documented by: Sodium Chloride (Sodium Chloride Flush 0.9% 10 Ml Syringe) 10 ml IVP 0100,0900,1700 [facility] Last Admin: 03/10/21 09:19 Dose: 10 ml Documented by: Tamsulosin HCl (Tamsulosin 0.4 Mg Capsule) 0.4 mg PO DAILY [facility] Last Admin: 03/10/21 09:17 Dose: 0.4 mg Documented by: Thiamine HCl (Thiamine 100 Mg Tablet) 100 mg PO DAILY [facility] Last Admin: 03/10/21 09:18 Dose: 100 mg Documented by: Zinc Oxide (Cod Liver Oil/Zinc Oxide 113 Gm Tube) 113 gm TOP PRN PRN PRN Reason: Skin Care Last Admin: 03/08/21 14:54 Dose: 1 applic Documented by: Furosemide [Lasix] 20 mg PO DAILY 07/31/20 Propranolol [Inderal] 10 mg PO BID 07/31/20 Spironolactone [Aldactone] 25 mg PO DAILY 07/31/20
[2021-03-10] MEDS ORDERED: LIDOCAINE 2% URO-JET 5 ML SYRINGE UR ONE (22:15)
--- NOTE | 2021-03-10 22:21 | Ultrasound Report ---
PROCEDURE: Retroperitoneal INDICATIONS: worsening renal fuanction,hydronephrosis,obstructi TECHNIQUE: Real-time scanning was performed of the retroperitoneal organs, with image documentation. COMPARISON: 03/02/2021 FINDINGS: Kidneys: Kidneys are normal in size. Right kidney measures 13.0 cm long; left kidney measures 12.9 cm long. Right renal cortical thickness is 1.3 cm; left renal cortical thickness is 2.0 cm. Moderate right hydronephrosis. 1.2 cm cortical medullary cyst in the upper pole of the right kidney and finel y septated, otherwise anechoic cyst in the lower pole of left kidney measuring 2.8 cm. Mild left hydr onephrosis. No solid masses. Urinary bladder: Distended urinary bladder has a volume of 420 cc. The urinary bladder wall is irreg ularly thickened with several thin and thick internal septations which demonstrate internal vasculari ty. An exophytic mass at the posterior apex of the urinary bladder. Prostate with irregular margins a nd internal cystic changes. Measures 5.9 x 4.8 x 5.4 cm. Neither ureteral jet was visible within the urinary bladder. The patient was not able to void and postvoid residual is larger than the prevoid vo lume. Incidental note is made of mild to moderate intra-abdominal ascites. IMPRESSION: 1. Degree of hydronephrosis has increased since the prior ultrasound bilaterally and is suspicious fo r obstruction at the level of the urinary bladder or distally. 2. Abnormal appearance to the urinary bladder and cystoscopy or CT IVP is recommended. 3. Abnormal appearance of what may be an enlarged prostate gland with cystic changes. 4. The patient was unable to void indicating bladder outlet obstruction or neurogenic bladder. Replac ement of Calix catheter is suggested. Reviewed by: Nallely Franks MD on 03/10/2021 10:20 PM PDT Approved by: Nallely Franks MD on 03/10/2021 10:20 PM PDT Station ID: [id number]
[2021-03-11] MEDS: SODIUM CHLORIDE FLUSH 0.9% 10 ML SYRINGE IVP SCH ×3 (00:21→20:27)
[2021-03-11 05:07] LABS: BASOPHILS % (AUTO) 0.5 %; EOSINOPHILS # (AUTO) 0.2 10^3/uL (0.0-0.7); EOSINOPHILS % (AUTO) 3.1 %; HCT - HEMATOCRIT 21.9 % (42.0-52.0); HGB - HEMOGLOBIN 7.1 g/dL (14.0-18.0); LYMPHOCYTES # (AUTO) 0.5 10^3/uL (1.5-3.5); MEAN CORPUSCULAR HEMOGLOBIN 25.4 pg (27.0-31.0); MEAN CORPUSCULAR HGB CONC 32.4 g/dL (32.0-36.0); MEAN CORPUSCULAR VOLUME 78.2 fL (80.0-94.0); MONOCYTES # (AUTO) 0.8 10^3/uL (0.0-1.0); MONOCYTES % (AUTO) 10.2 %; NEUTROPHILS # (AUTO) 6.1 10^3/uL (1.5-6.6); NEUTROPHILS % (AUTO) 79.8 %; PLT - PLATELET COUNT 105 10^3/uL (130-450); RED CELL DISTRIBUTION WIDTH 26.9 % (12.0-15.0); WHITE BLOOD COUNT 7.7 x10^3/uL (4.8-10.8)
[2021-03-11 05:09] LABS: SLIDE REVIEW? Indicated
[2021-03-11 05:12] LABS: CALCIUM 8.3 mg/dL (8.5-10.3); POTASSIUM 3.6 mmol/L (3.5-5.0)
[2021-03-11 05:30] LABS: PLATELET ESTIMATE, MANUAL NORMAL (130-450,000) (NORMAL); PLATELET MORPHOLOGY NORMAL APPEARANCE (NORMAL); WBC MORPHOLOGY (MULTIPLE) NORMAL APPEARANCE (NORMAL)
[2021-03-11] MEDS: PANTOPRAZOLE 40 MG TABLET PO SCH (05:50)
[2021-03-11] MEDS: SODIUM CHLORIDE 0.9% 1,000 ML IV SCH (05:50)
--- NOTE | 2021-03-11 07:43 | PROVIDER PROGRESS NOTE ---
Assessment/Plan - Problem List (1) Urinary incontinence with continuous leakage Assessment/Plan: Chronic indwelling Calix catheter. Patient is on Flomax. Will continue. (2) Acute renal failure Qualifiers: Qualified Code(s): N17.9 - Acute kidney failure, unspecified Assessment/Plan: Likely related to liver failure. Patient's renal function has improved today when compared to yesterday. Creatinine today is 3.0. Yesterday it was 3.7. Overall this is a significant improvement from admission when patient's creatinine was 10.3. We will continue to monitor. Anticipate further improvement. IV hydration was discontinued due to wheezing. (3) SVT (supraventricular tachycardia) Assessment/Plan: Stable/resolved. On Cardizem CD 120 mg daily. Continue metoprolol. Continue to monitor on tele metry. (4) Encephalopathy Assessment/Plan: Resolved. Patient is alert, oriented x3. (5) End stage liver disease Assessment/Plan: Secondary to alcoholic cirrhosis. Abdomen is distended but soft and nontender. Patient's spironolactone, Lasix, propanolol when appropriate to do so. On lactulose 10 g p.o. daily. On Protonix 40 mg p.o. daily AC. On vitamin B1. He is awaiting placement at a senior living facility. (6) Protein-calorie malnutrition, severe Assessment/Plan: On mechanical soft diet. Nutrition following. (7) Iron deficiency anemia due to dietary causes Assessment/Plan: Hemoglobin today is 7.1. We will continue to monitor. Ferrous sulfate 324 mg p.o. daily (8) Hypertension Assessment/Plan: Currently normotensive. On diltiazem and metoprolol. (9) Wheezing Assessment/Plan: Patient appears to be at baseline. Breathing comfortably on room air with oxygen saturation 95%. - Current Meds Current Meds: Current Medications Generic Name Dose Route Start Last Admin Trade Name Freq PRN Reason Stop Dose Admin Albuterol/Ipratropium 3 ml 03/02/21 06:57 03/03/21 13:35 Ipratropium/Albuterol 3 Ml Neb INH 3 ml Q4HR PRN Administration Wheezing Diltiazem HCl 120 mg 03/07/21 11:00 03/10/21 09:18 Diltiazem Cd 120 Mg Capsule PO 120 mg DAILY TRACI Administration Ferrous Gluconate 324 mg 03/09/21 09:00 03/10/21 09:17 Ferrous Gluconate 324 Mg Tablet PO 324 mg DAILYWM TRACI Administration Sodium Chloride 1,000 mls @ 83.333 mls/hr 03/10/21 13:00 03/11/21 05:50 Normal Saline 0.9% IV 03/11/21 12:59 83.333 mls/hr .Q12H TRACI Administration Lactulose 10 gm 03/06/21 09:00 03/10/21 09:23 Lactulose 10 Gm /15 Ml Udc PO 10 gm DAILY TRACI Administration Metoprolol Tartrate 25 mg 03/05/21 13:00 03/10/21 22:05 Metoprolol Tartrate 25 Mg Tablet PO 25 mg BID TRACI Administration Morphine Sulfate 2 mg 03/03/21 00:20 03/05/21 03:27 Morphine 2 Mg/Ml Carpuject IVP 2 mg Q2HR PRN Administration PAIN Multi-Ingredient Ointment 1 applic 03/02/21 03:51 03/07/21 16:32 Zinc Oxide 20% Oint 30 Gm Tube TOP 1 applic PRN PRN Administration Skin Care Pantoprazole Sodium 40 mg 03/07/21 07:00 03/11/21 05:50 Pantoprazole 40 Mg Tablet PO 40 mg QDAC TRACI Administration Multivit/Folic Acid/Iron 1 tab 03/05/21 12:00 03/10/21 09:18 Vitamin Tablet PO 1 tab DAILYWM TRACI Administration Sodium Chloride 10 ml 03/01/21 21:15 03/05/21 06:07 Sodium Chloride Flush 0.9% 10 Ml Syringe IVP 10 ml PRN PRN Administration NEEDED PER PROVIDER ORDERS Sodium Chloride 10 ml 03/02/21 01:00 03/11/21 00:21 Sodium Chloride Flush 0.9% 10 Ml Syringe IVP Not Given 0100,0900,1700 TRACI Tamsulosin HCl 0.4 mg 03/09/21 09:00 03/10/21 09:17 Tamsulosin 0.4 Mg Capsule PO 0.4 mg DAILY TRACI Administration Thiamine HCl 100 mg 03/05/21 12:00 03/10/21 09:18 Thiamine 100 Mg Tablet PO 100 mg DAILY TRACI Administration Zinc Oxide 113 gm 03/01/21 22:30 03/08/21 14:54 Cod Liver Oil/Zinc Oxide 113 Gm Tube TOP 1 applic PRN PRN Administration Skin Care - Lab Result Fish Bone Diagrams: 03/11/21 04:21 03/11/21 04:21 Subjective - Subjective Patient Reports: Other (Patient was resting comfortably in bed at time of exam. He denied any complaints. He has been ambulating around the [facility] floor without any difficulties. He has a mild wheeze. He has significant bruising on his extremities. Abdomen is distended, soft and not tender to palpation. Bowel sounds) Objective Vital Signs: Vital Signs - 24 hr 03/10/21 03/10/21 03/10/21 09:18 16:07 20:10 Temperature 36.7 C Heart Rate 83 Heart Rate [ 83 Brachial] Respiratory 20 20 Rate Blood Pressure 128/56 L Blood Pressure 126/65 [Right Brachial artery] O2 Saturation 97 03/10/21 03/11/21 22:05 00:09 Temperature 37.0 C Heart Rate Heart Rate [ 84 Brachial] Respiratory 21 Rate Blood Pressure 113/60 Blood Pressure 121/63 [Right Brachial artery] O2 Saturation 96 Oxygen O2 Source [With Activity] Room air O2 Source Room air I&O (Last 24 Hrs): Intake and Output Totals x24h 03/09/21 03/10/21 03/11/21 23:59 23:59 23:59 Intake Total 3191.174 2813.333 1000 Output Total 4626 064 7956 Balance 2191.174 2413.333 -1350 General: Alert, Oriented x3, No acute distress HEENT: PERRLA, EOMI Neck: No JVD Neuro: Alert, Non Focal, Oriented Times 3 Cardiovascular: Regular rate, No murmurs Respiratory: Chest non-tender, Wheezes (mild) Abdomen: Normal bowel sounds, Soft, No tenderness, Other (distended) Extremities: No clubbing, No cyanosis, No edema Comments/Notes: bruising on extremities bilaterally - Results Results: Laboratory Results WBC 7.7 x10^3/uL (4.8-10.8) 03/11/21 04:21 RBC 2.80 10^6/uL (4.70-6.10) L 03/11/21 04:21 Hgb 7.1 g/dL (14.0-18.0) L 03/11/21 04:21 Hct 21.9 % (42.0-52.0) L 03/11/21 04:21 MCV 78.2 fL (80.0-94.0) L 03/11/21 04:21 MCH 25.4 pg (27.0-31.0) L 03/11/21 04:21 MCHC 32.4 g/dL (32.0-36.0) 03/11/21 04:21 RDW 26.9 % (12.0-15.0) H 03/11/21 04:21 Plt Count 105 10^3/uL (130-450) L 03/11/21 04:21 MPV 10.7 fL (7.4-11.4) 03/07/21 08:01 Reticulocyte % (Auto) 2.31 % (0.5-2.3) H 03/09/21 05:41 Neut # (Auto) 6.1 10^3/uL (1.5-6.6) 03/11/21 04:21 Lymph # (Auto) 0.5 10^3/uL (1.5-3.5) L 03/11/21 04:21 [place] # (Auto) 0.8 10^3/uL (0.0-1.0) 03/11/21 04:21 Eos # (Auto) 0.2 10^3/uL (0.0-0.7) 03/11/21 04:21 Baso # (Auto) 0.0 10^3/uL (0.0-0.1) 03/11/21 04:21 Absolute Nucleated RBC 0.00 x10^3/uL 03/11/21 04:21 Total Counted 100 03/08/21 04:09 Band Neuts % (Manual) Not Reportable 03/09/21 05:41 Abnorm Lymph % (Manual) Not Reportable 03/09/21 05:41 Nucleated RBC % 0.0 /100WBC 03/11/21 04:21 Neutrophils # (Manual) Not Reportable 03/09/21 05:41 Lymphocytes # (Manual) Not Reportable 03/09/21 05:41 Monocytes # (Manual) Not Reportable 03/09/21 05:41 Eosinophils # (Manual) Not Reportable 03/09/21 05:41 Basophils # (Manual) Not Reportable 03/09/21 05:41 Differential Comment MANUAL=AUTO DIFF 03/09/21 05:41 Manual Slide Review Indicated 03/11/21 04:21 WBC Morphology NORMAL APPEARANCE (NORMAL) 03/11/21 04:21 Platelet Estimate NORMAL (130-450,000) (NORMAL) 03/11/21 04:21 Platelet Morphology NORMAL APPEARANCE (NORMAL) 03/11/21 04:21 RBC Morph Micro Appear 2+ HYPOCHROMASIA (NORMAL) 1+ POLYCHROMASIA (NORMAL) 3+ ANISOCYTOSIS (NORMAL) 03/11/21 04:21 RBC Morph Micro Appear 2+ HYPOCHROMASIA (NORMAL) 1+ POLYCHROMASIA (NORMAL) 3+ ANISOCYTOSIS (NORMAL) 03/11/21 04:21 RBC Morph Micro Appear 2+ HYPOCHROMASIA (NORMAL) 1+ POLYCHROMASIA (NORMAL) 3+ ANISOCYTOSIS (NORMAL) 03/11/21 04:21 Absolute Retic 0.073 10^6/uL (0.020-0.110) 03/09/21 05:41 PT 16.3 secs (9.9-12.6) H 02/28/21 12:34 INR 1.5 (0.8-1.2) H 02/28/21 12:34 APTT 30.2 secs (24.9-33.3) 02/28/21 12:34 Bld Gas Analysis Time 2320 02/28/21 23:15 Sample Site RIGHT RADIAL 02/28/21 23:15 ABG pH 7.41 (7.35-7.45) 02/28/21 23:15 ABG pCO2 20 mmHg (34-45) L* 02/28/21 23:15 ABG pO2 89 mmHg (80-100) 02/28/21 23:15 ABG HCO3 12.5 mmol/L (22.0-26.0) L 02/28/21 23:15 ABG Total CO2 13.1 MMOL/L (21.0-29.0) L 02/28/21 23:15 ABG O2 Saturation 96 % (94-98) 02/28/21 23:15 ABG Base Excess -10.5 mmol/L (-2.0-3.0) L 02/28/21 23:15 Thanh Test POSITIVE 02/28/21 23:15 VBG pH 7.396 (7.31-7.41) 03/02/21 16:45 VBG pCO2 19.0 mmHg (41-51) L 02/28/21 22:02 VBG pO2 75.4 mmHg (25-47) H 02/28/21 22:02 VBG HCO3 11.7 mmol/L (23-28) L 02/28/21 22:02 VBG Total CO2 12.3 mmol/L (24-29) L 02/28/21 22:02 VBG O2 Saturation 93.4 % (60-80) H 02/28/21 22:02 VBG Base Excess -11.0 mmol/L (-2 - +2) L 02/28/21 22:02 Ionized Calcium 1.05 mmol/L (1.15-1.33) L 03/02/21 16:45 O2 Delivery Device NON REBREATHER MASK 02/28/21 23:15 FiO2 21.00 02/28/21 23:15 Sodium 133 mmol/L (135-145) L 03/11/21 04:21 Potassium 3.6 mmol/L (3.5-5.0) 03/11/21 04:21 Chloride 104 mmol/L (101-111) 03/11/21 04:21 Carbon Dioxide 19 mmol/L (21-32) L 03/11/21 04:21 Anion Gap 10.0 (6-13) 03/11/21 04:21 BUN 70 mg/dL (6-20) H 03/11/21 04:21 Creatinine 3.0 mg/dL (0.6-1.2) H 03/11/21 04:21 Estimated GFR (MDRD) 21 (>89) L 03/11/21 04:21 Glucose 105 mg/dL (70-100) H 03/11/21 04:21 Lactic Acid 2.5 mmol/L (0.5-2.2) H 02/28/21 21:44 Calcium 8.3 mg/dL (8.5-10.3) L 03/11/21 04:21 Phosphorus 3.4 mg/dL (2.5-4.6) 03/09/21 05:41 Magnesium 1.9 mg/dL (1.7-2.8) 03/08/21 04:09 Iron 18 ug/dL (45-182) L 03/09/21 05:41 TIBC 193 ug/dL (250-450) L 03/09/21 05:41 % Saturation 9 % (20-50) L 03/09/21 05:41 Transferrin 138 mg/dL (180-329) L 03/09/21 05:41 Ferritin 110.3 ng/mL (23.9-336.2) 03/09/21 05:41 Total Bilirubin 2.7 mg/dL (0.2-1.0) H 03/05/21 04:48 AST 19 IU/L (10-42) 03/05/21 04:48 ALT 15 IU/L (10-60) 03/05/21 04:48 Alkaline Phosphatase 100 IU/L (42-121) 03/05/21 04:48 Ammonia 22.0 umol/L (7-35) 03/07/21 11:55 Lactate Dehydrogenase 135 IU/L (91-225) 03/09/21 05:41 Total Creatine Kinase 36 IU/L (22-269) 02/28/21 12:34 Troponin I High Sens 17.5 ng/L (2.3-19.7) 03/03/21 16:42 B-Natriuretic Peptide 313 pg/mL (5-100) H 03/01/21 02:39 Total Protein 6.0 g/dL (6.7-8.2) L 03/05/21 04:48 Albumin 2.1 g/dL (3.2-5.5) L 03/05/21 04:48 Globulin 3.9 g/dL (2.1-4.2) 03/05/21 04:48 Albumin/Globulin Ratio 0.5 (1.0-2.2) L 03/05/21 04:48 Lipase 251 U/L (22-51) H 02/28/21 21:44 Vitamin B12 1216 pg/mL (180-914) H 03/09/21 05:41 Folate 32.00 ng/mL (5.90 - >24.8) 03/09/21 05:41 TSH 2.35 uIU/mL (0.34-5.60) 02/28/21 12:34 Free T4 0.69 ng/dL (0.58-1.64) 02/28/21 12:34 Urine Color DARK YELLOW 02/28/21 13:03 Urine Clarity CLOUDY (CLEAR) 02/28/21 13:03 Urine pH 6.0 PH (5.0-7.5) 02/28/21 13:03 Ur Specific [place] 1.015 (1.002-1.030) 02/28/21 13:03 Urine Protein NEGATIVE mg/dL (NEGATIVE) 02/28/21 13:03 Urine Glucose (UA) NEGATIVE mg/dL (NEGATIVE) 02/28/21 13:03 Urine Ketones NEGATIVE mg/dL (NEGATIVE) 02/28/21 13:03 Urine Occult Blood LARGE (NEGATIVE) H 02/28/21 13:03 Urine Nitrite NEGATIVE (NEGATIVE) 02/28/21 13:03 Urine Bilirubin NEGATIVE (NEGATIVE) 02/28/21 13:03 Urine Urobilinogen 1 (NORMAL) E.U./dL (NORMAL) 02/28/21 13:03 Ur Leukocyte Esterase MODERATE (NEGATIVE) H 02/28/21 13:03 Urine RBC 6-10 /HPF (0-5) H 02/28/21 13:03 Urine WBC >25 /HPF (0-3) H 02/28/21 13:03 Ur Squamous Epith Cells NONE SEEN (<= Few) 02/28/21 13:03 Urine Bacteria Few /HPF (None Seen) 02/28/21 13:03 Ur Microscopic Review INDICATED 02/28/21 13:03 Urine Culture Comments INDICATED 02/28/21 13:03 Nasal Adenovirus (PCR) NOT DETECTED 02/28/21 14:05 Nasal B. parapertussis DNA (PCR) NOT DETECTED 02/28/21 14:05 Nasal Coronavir 229E PCR NOT DETECTED 02/28/21 14:05 Nasal Coronavir HKU1 PCR NOT DETECTED 02/28/21 14:05 Nasal Coronavir NL63 PCR NOT DETECTED 02/28/21 14:05 Nasal Coronavir OC43 PCR NOT DETECTED 02/28/21 14:05 Nasal Enterovir/Rhinovir PCR NOT DETECTED 02/28/21 14:05 Nasal Influenza B PCR NOT DETECTED 02/28/21 14:05 Nasal Influenza A PCR NOT DETECTED 02/28/21 14:05 Nasal Parainfluen 1 PCR NOT DETECTED 02/28/21 14:05 Nasal Parainfluen 2 PCR NOT DETECTED 02/28/21 14:05 Nasal Parainfluen 3 PCR NOT DETECTED 02/28/21 14:05 Nasal Parainfluen 4 PCR NOT DETECTED 02/28/21 14:05 Nasal RSV (PCR) NOT DETECTED 02/28/21 14:05 Nasal Screen MRSA (PCR) NEGATIVE (NEGATIVE) 03/01/21 22:00 Nasal B.pertussis DNA PCR NOT DETECTED 02/28/21 14:05 Nasal C.pneumoniae (PCR) NOT DETECTED 02/28/21 14:05 Gregory Human Metapneumo PCR NOT DETECTED 02/28/21 14:05 Nasal M.pneumoniae (PCR) NOT DETECTED 02/28/21 14:05 Nasal SARS-CoV-2 (PCR) NOT DETECTED 02/28/21 14:05 Stl C. diff Tox B Gene NEGATIVE (NEGATIVE) 03/03/21 00:30 Salicylates < 6.0 mg/dL 02/28/21 12:34 Urine Opiates Screen NEGATIVE (NEGATIVE) 02/28/21 13:03 Ur Oxycodone Screen NEGATIVE (NEGATIVE) 02/28/21 13:03 Urine Methadone Screen NEGATIVE (NEGATIVE) 02/28/21 13:03 Ur Propoxyphene Screen NEGATIVE (NEGATIVE) 02/28/21 13:03 Acetaminophen < 10 ug/mL (10-30) L 02/28/21 12:34 Ur Barbiturates Screen NEGATIVE (NEGATIVE) 02/28/21 13:03 Ur Tricyclics Screen NEGATIVE (NEGATIVE) 02/28/21 13:03 Ur Phencyclidine Scrn NEGATIVE (NEGATIVE) 02/28/21 13:03 Ur Amphetamine Screen NEGATIVE (NEGATIVE) 02/28/21 13:03 U Methamphetamines Scrn NEGATIVE (NEGATIVE) 02/28/21 13:03 U Benzodiazepines Scrn NEGATIVE (NEGATIVE) 02/28/21 13:03 Urine Cocaine Screen NEGATIVE (NEGATIVE) 02/28/21 13:03 U Cannabinoids Screen NEGATIVE (NEGATIVE) 02/28/21 13:03 Ethyl Alcohol < 5.0 mg/dL 02/28/21 12:34 - Procedures Procedures: Procedures DRAINAGE OF PERITONEAL CAVITY, PERCUTANEOUS APPROACH, DIAGN (12/19/15) TRANSFUSE NONAUT RED BLOOD CELLS IN PERIPH VEIN, PERC (12/19/15) Sepsis Event Note (H) - Evaluation Possible source of Sepsis: positive: Genitourinary, Skin/soft tissue ABX Reporting Has patient been on IV antibiotics over the past 48 hours?: No
[2021-03-11] MEDS: LACTULOSE 10 GM /15 ML UDC PO SCH (08:13)
[2021-03-11] MEDS: FERROUS GLUCONATE 324 MG TABLET PO SCH (08:13)
[2021-03-11] MEDS: PRENATAL VITAMIN TABLET PO SCH (08:13)
[2021-03-11] MEDS: METOPROLOL TARTRATE 25 MG TABLET PO SCH ×2 (08:13→20:32)
[2021-03-11] MEDS: THIAMINE 100 MG TABLET PO SCH (08:13)
[2021-03-11] MEDS: diltiaZEM CD 120 MG CAPSULE PO SCH (08:14)
[2021-03-11] MEDS: SACCHAROMYCES BOULARDII 250 MG CAPSULE PO SCH (08:14)
[2021-03-11] MEDS: TAMSULOSIN 0.4 MG CAPSULE PO SCH (08:14)
[2021-03-12] MEDS: SODIUM CHLORIDE FLUSH 0.9% 10 ML SYRINGE IVP SCH ×4 (00:05→23:33)
[2021-03-12 06:04] LABS: BASOPHILS # (AUTO) 0.1 10^3/uL (0.0-0.1); BASOPHILS % (AUTO) 0.8 %; EOSINOPHILS # (AUTO) 0.4 10^3/uL (0.0-0.7); EOSINOPHILS % (AUTO) 5.9 %; HCT - HEMATOCRIT 22.8 % (42.0-52.0); HGB - HEMOGLOBIN 7.2 g/dL (14.0-18.0); LYMPHOCYTES # (AUTO) 0.5 10^3/uL (1.5-3.5); LYMPHOCYTES % (AUTO) 8.1 %; MEAN CORPUSCULAR HEMOGLOBIN 25.2 pg (27.0-31.0); MEAN CORPUSCULAR HGB CONC 31.6 g/dL (32.0-36.0); MEAN CORPUSCULAR VOLUME 79.7 fL (80.0-94.0); MEAN PLATELET VOLUME 11.3 fL (7.4-11.4); MONOCYTES # (AUTO) 0.7 10^3/uL (0.0-1.0); MONOCYTES % (AUTO) 10.8 %; NEUTROPHILS # (AUTO) 4.7 10^3/uL (1.5-6.6); NEUTROPHILS % (AUTO) 74.1 %; PLT - PLATELET COUNT 105 10^3/uL (130-450); RED BLOOD COUNT 2.86 10^6/uL (4.70-6.10); RED CELL DISTRIBUTION WIDTH 26.8 % (12.0-15.0); WHITE BLOOD COUNT 6.3 x10^3/uL (4.8-10.8)
[2021-03-12 06:06] LABS: SLIDE REVIEW? Indicated
[2021-03-12 06:09] LABS: CALCIUM 8.6 mg/dL (8.5-10.3); CREATININE 1.4 mg/dL (0.6-1.2); POTASSIUM 3.5 mmol/L (3.5-5.0)
[2021-03-12 06:24] LABS: PLATELET ESTIMATE, MANUAL NORMAL (130-450,000) (NORMAL); PLATELET MORPHOLOGY NORMAL APPEARANCE (NORMAL); WBC MORPHOLOGY (MULTIPLE) NORMAL APPEARANCE (NORMAL)
[2021-03-12] MEDS: PANTOPRAZOLE 40 MG TABLET PO SCH (06:50)
--- NOTE | 2021-03-12 07:18 | PROVIDER PROGRESS NOTE ---
Assessment/Plan - Problem List (1) Urinary incontinence with continuous leakage Assessment/Plan: Assessment/Plan: Chronic indwelling Calix catheter. Patient is on Flomax. Will continue. (2) Acute renal failure Qualifiers: Qualified Code(s): N17.9 - Acute kidney failure, unspecified Assessment/Plan: Likely related to liver failure. Patient's renal function has improved today when compared to yesterday. Creatinine today is 1.4. Yesterday it was 3.0. Overall this is a significant improvement from admission when patient's creati nine was 10.3. We will continue to monitor. Anticipate further improvement. IV hydration was discontinued due to wheezing. (3) SVT (supraventricular tachycardia) Assessment/Plan: Stable/resolved. On Cardizem CD 120 mg daily. Continue metoprolol. Continue to monitor on telemetry. (4) Encephalopathy Assessment/Plan: Resolved. Patient is alert, oriented x3. (5) End stage liver disease Assessment/Plan: Secondary to alcoholic cirrhosis. Abdomen is distended but soft and nontender. Patient's spironolactone, Lasix, propanolol when appropriate to do so. On lactulose 10 g p.o. daily. On Protonix 40 mg p.o. daily AC. On vitamin B1. He is awaiting placement at a longterm facility. (6) Protein-calorie malnutrition, severe Assessment/Plan: On mechanical soft diet. Nutrition following. (7) Iron deficiency anemia due to dietary causes Assessment/Plan: Hemoglobin today is 7.2. We will continue to monitor. Ferrous sulfate 324 mg p.o. daily (8) Hypertension Assessment/Plan: Currently normotensive. On diltiazem and metoprolol. (9) Wheezing Assessment/Plan: Improved Breathing comfortably on room air with oxygen saturation 98%. (2) Acute renal failure Qualifiers: Qualified Code(s): N17.9 - Acute kidney failure, unspecified - Current Meds Current Meds: Current Medications Generic Name Dose Route Start Last Admin Trade Name Freq PRN Reason Stop Dose Admin Albuterol/Ipratropium 3 ml 03/02/21 06:57 03/03/21 13:35 Ipratropium/Albuterol 3 Ml Neb INH 3 ml Q4HR PRN Administration Wheezing Diltiazem HCl 120 mg 03/07/21 11:00 03/11/21 08:14 Diltiazem Cd 120 Mg Capsule PO 120 mg DAILY TRACI Administration Ferrous Gluconate 324 mg 03/09/21 09:00 03/11/21 08:13 Ferrous Gluconate 324 Mg Tablet PO 324 mg DAILYWM TRACI Administration Lactulose 10 gm 03/06/21 09:00 03/11/21 08:13 Lactulose 10 Gm /15 Ml Udc PO 10 gm DAILY TRACI Administration Metoprolol Tartrate 25 mg 03/05/21 13:00 03/11/21 20:32 Metoprolol Tartrate 25 Mg Tablet PO 25 mg BID TRACI Administration Morphine Sulfate 2 mg 03/03/21 00:20 03/05/21 03:27 Morphine 2 Mg/Ml Carpuject IVP 2 mg Q2HR PRN Administration PAIN Multi-Ingredient Ointment 1 applic 03/02/21 03:51 03/07/21 16:32 Zinc Oxide 20% Oint 30 Gm Tube TOP 1 applic PRN PRN Administration Skin Care Pantoprazole Sodium 40 mg 03/07/21 07:00 03/12/21 06:50 Pantoprazole 40 Mg Tablet PO 40 mg QDAC TRACI Administration Multivit/Folic Acid/Iron 1 tab 03/05/21 12:00 03/11/21 08:13 Vitamin Tablet PO 1 tab DAILYWM TRACI Administration Saccharomyces Boulardii 250 mg 03/11/21 09:00 03/11/21 08:14 Saccharomyces Boulardii 250 Mg Capsule PO 250 mg DAILY TRACI Administration Sodium Chloride 10 ml 03/01/21 21:15 03/05/21 06:07 Sodium Chloride Flush 0.9% 10 Ml Syringe IVP 10 ml PRN PRN Administration NEEDED PER PROVIDER ORDERS Sodium Chloride 10 ml 03/02/21 01:00 03/12/21 00:05 Sodium Chloride Flush 0.9% 10 Ml Syringe IVP 10 ml 0100,0900,1700 TRACI Administration Tamsulosin HCl 0.4 mg 03/09/21 09:00 03/11/21 08:14 Tamsulosin 0.4 Mg Capsule PO 0.4 mg DAILY TRACI Administration Thiamine HCl 100 mg 03/05/21 12:00 03/11/21 08:13 Thiamine 100 Mg Tablet PO 100 mg DAILY TRACI Administration Zinc Oxide 113 gm 03/01/21 22:30 03/08/21 14:54 Cod Liver Oil/Zinc Oxide 113 Gm Tube TOP 1 applic PRN PRN Administration Skin Care - Lab Result Fish Bone Diagrams: 03/12/21 04:38 03/12/21 04:38 Subjective - Subjective Patient Reports: Other (Patient was resting comfortably in bed. He denied any complaints. His wheezing is significantly decreased.) Objective Vital Signs: Vital Signs - 24 hr 03/11/21 03/11/21 03/11/21 08:12 08:13 10:00 Temperature 36.7 C Heart Rate 92 Heart Rate [ 86 Brachial] Respiratory 20 18 Rate Blood Pressure 121/56 L Blood Pressure 121/56 L [Right Brachial artery] O2 Saturation 95 03/11/21 03/11/21 03/11/21 15:59 19:40 20:32 Temperature 36.6 C Heart Rate 86 Heart Rate [ 86 Brachial] Respiratory 20 20 Rate Blood Pressure 123/60 Blood Pressure 115/55 L [Right Brachial artery] O2 Saturation 97 03/12/21 00:03 Temperature 36.6 C Heart Rate Heart Rate [ 80 Brachial] Respiratory 18 Rate Blood Pressure Blood Pressure 118/56 L [Right Brachial artery] O2 Saturation 97 Oxygen O2 Source [With Activity] Room air O2 Source Room air I&O (Last 24 Hrs): Intake and Output Totals x24h 03/10/21 03/11/21 03/12/21 23:59 23:59 23:59 Intake Total 2813.333 4432 Output Total 400 5300 1050 Balance 2413.333 -868 -1050 General: Alert, Oriented x3, Cooperative, No acute distress HEENT: PERRLA, EOMI Neck: Supple, No JVD Neuro: Alert, Non Focal, Oriented Times 3 Cardiovascular: Regular rate Respiratory: Chest non-tender, No respiratory distress, Breath sounds nml, Wheezes (Mild) Abdomen: Normal bowel sounds, Soft, No tenderness, Other (distended) Comments/Notes: Bruising on extremities - Results Results: Laboratory Results WBC 6.3 x10^3/uL (4.8-10.8) 03/12/21 04:38 RBC 2.86 10^6/uL (4.70-6.10) L 03/12/21 04:38 Hgb 7.2 g/dL (14.0-18.0) L 03/12/21 04:38 Hct 22.8 % (42.0-52.0) L 03/12/21 04:38 MCV 79.7 fL (80.0-94.0) L 03/12/21 04:38 MCH 25.2 pg (27.0-31.0) L 03/12/21 04:38 MCHC 31.6 g/dL (32.0-36.0) L 03/12/21 04:38 RDW 26.8 % (12.0-15.0) H 03/12/21 04:38 Plt Count 105 10^3/uL (130-450) L 03/12/21 04:38 MPV 11.3 fL (7.4-11.4) 03/12/21 04:38 Reticulocyte % (Auto) 2.31 % (0.5-2.3) H 03/09/21 05:41 Neut # (Auto) 4.7 10^3/uL (1.5-6.6) 03/12/21 04:38 Lymph # (Auto) 0.5 10^3/uL (1.5-3.5) L 03/12/21 04:38 [place] # (Auto) 0.7 10^3/uL (0.0-1.0) 03/12/21 04:38 Eos # (Auto) 0.4 10^3/uL (0.0-0.7) 03/12/21 04:38 Baso # (Auto) 0.1 10^3/uL (0.0-0.1) 03/12/21 04:38 Absolute Nucleated RBC 0.00 x10^3/uL 03/12/21 04:38 Total Counted 100 03/08/21 04:09 Band Neuts % (Manual) Not Reportable 03/09/21 05:41 Abnorm Lymph % (Manual) Not Reportable 03/09/21 05:41 Nucleated RBC % 0.0 /100WBC 03/12/21 04:38 Neutrophils # (Manual) Not Reportable 03/09/21 05:41 Lymphocytes # (Manual) Not Reportable 03/09/21 05:41 Monocytes # (Manual) Not Reportable 03/09/21 05:41 Eosinophils # (Manual) Not Reportable 03/09/21 05:41 Basophils # (Manual) Not Reportable 03/09/21 05:41 Differential Comment MANUAL=AUTO DIFF 03/09/21 05:41 Manual Slide Review Indicated 03/12/21 04:38 WBC Morphology NORMAL APPEARANCE (NORMAL) 03/12/21 04:38 Platelet Estimate NORMAL (130-450,000) (NORMAL) 03/12/21 04:38 Platelet Morphology NORMAL APPEARANCE (NORMAL) 03/12/21 04:38 RBC Morph Micro Appear 2+ HYPOCHROMASIA (NORMAL) 1+ POLYCHROMASIA (NORMAL) 3+ ANISOCYTOSIS (NORMAL) 03/12/21 04:38 RBC Morph Micro Appear 2+ HYPOCHROMASIA (NORMAL) 1+ POLYCHROMASIA (NORMAL) 3+ ANISOCYTOSIS (NORMAL) 03/12/21 04:38 RBC Morph Micro Appear 2+ HYPOCHROMASIA (NORMAL) 1+ POLYCHROMASIA (NORMAL) 3+ ANISOCYTOSIS (NORMAL) 03/12/21 04:38 Absolute Retic 0.073 10^6/uL (0.020-0.110) 03/09/21 05:41 PT 16.3 secs (9.9-12.6) H 02/28/21 12:34 INR 1.5 (0.8-1.2) H 02/28/21 12:34 APTT 30.2 secs (24.9-33.3) 02/28/21 12:34 Bld Gas Analysis Time 2320 02/28/21 23:15 Sample Site RIGHT RADIAL 02/28/21 23:15 ABG pH 7.41 (7.35-7.45) 02/28/21 23:15 ABG pCO2 20 mmHg (34-45) L* 02/28/21 23:15 ABG pO2 89 mmHg (80-100) 02/28/21 23:15 ABG HCO3 12.5 mmol/L (22.0-26.0) L 02/28/21 23:15 ABG Total CO2 13.1 MMOL/L (21.0-29.0) L 02/28/21 23:15 ABG O2 Saturation 96 % (94-98) 02/28/21 23:15 ABG Base Excess -10.5 mmol/L (-2.0-3.0) L 02/28/21 23:15 Thanh Test POSITIVE 02/28/21 23:15 VBG pH 7.396 (7.31-7.41) 03/02/21 16:45 VBG pCO2 19.0 mmHg (41-51) L 02/28/21 22:02 VBG pO2 75.4 mmHg (25-47) H 02/28/21 22:02 VBG HCO3 11.7 mmol/L (23-28) L 02/28/21 22:02 VBG Total CO2 12.3 mmol/L (24-29) L 02/28/21 22:02 VBG O2 Saturation 93.4 % (60-80) H 02/28/21 22:02 VBG Base Excess -11.0 mmol/L (-2 - +2) L 02/28/21 22:02 Ionized Calcium 1.05 mmol/L (1.15-1.33) L 03/02/21 16:45 O2 Delivery Device NON REBREATHER MASK 02/28/21 23:15 FiO2 21.00 02/28/21 23:15 Sodium 138 mmol/L (135-145) 03/12/21 04:38 Potassium 3.5 mmol/L (3.5-5.0) 03/12/21 04:38 Chloride 107 mmol/L (101-111) 03/12/21 04:38 Carbon Dioxide 21 mmol/L (21-32) 03/12/21 04:38 Anion Gap 10.0 (6-13) 03/12/21 04:38 BUN 43 mg/dL (6-20) H 03/12/21 04:38 Creatinine 1.4 mg/dL (0.6-1.2) H 03/12/21 04:38 Estimated GFR (MDRD) 50 (>89) L 03/12/21 04:38 Glucose 103 mg/dL (70-100) H 03/12/21 04:38 Lactic Acid 2.5 mmol/L (0.5-2.2) H 02/28/21 21:44 Calcium 8.6 mg/dL (8.5-10.3) 03/12/21 04:38 Phosphorus 3.4 mg/dL (2.5-4.6) 03/09/21 05:41 Magnesium 1.9 mg/dL (1.7-2.8) 03/08/21 04:09 Iron 18 ug/dL (45-182) L 03/09/21 05:41 TIBC 193 ug/dL (250-450) L 03/09/21 05:41 % Saturation 9 % (20-50) L 03/09/21 05:41 Transferrin 138 mg/dL (180-329) L 03/09/21 05:41 Ferritin 110.3 ng/mL (23.9-336.2) 03/09/21 05:41 Total Bilirubin 2.7 mg/dL (0.2-1.0) H 03/05/21 04:48 AST 19 IU/L (10-42) 03/05/21 04:48 ALT 15 IU/L (10-60) 03/05/21 04:48 Alkaline Phosphatase 100 IU/L (42-121) 03/05/21 04:48 Ammonia 22.0 umol/L (7-35) 03/07/21 11:55 Lactate Dehydrogenase 135 IU/L (91-225) 03/09/21 05:41 Total Creatine Kinase 36 IU/L (22-269) 02/28/21 12:34 Troponin I High Sens 17.5 ng/L (2.3-19.7) 03/03/21 16:42 B-Natriuretic Peptide 313 pg/mL (5-100) H 03/01/21 02:39 Total Protein 6.0 g/dL (6.7-8.2) L 03/05/21 04:48 Albumin 2.1 g/dL (3.2-5.5) L 03/05/21 04:48 Globulin 3.9 g/dL (2.1-4.2) 03/05/21 04:48 Albumin/Globulin Ratio 0.5 (1.0-2.2) L 03/05/21 04:48 Lipase 251 U/L (22-51) H 02/28/21 21:44 Vitamin B12 1216 pg/mL (180-914) H 03/09/21 05:41 Folate 32.00 ng/mL (5.90 - >24.8) 03/09/21 05:41 TSH 2.35 uIU/mL (0.34-5.60) 02/28/21 12:34 Free T4 0.69 ng/dL (0.58-1.64) 02/28/21 12:34 Urine Color DARK YELLOW 02/28/21 13:03 Urine Clarity CLOUDY (CLEAR) 02/28/21 13:03 Urine pH 6.0 PH (5.0-7.5) 02/28/21 13:03 Ur Specific Muddy 1.015 (1.002-1.030) 02/28/21 13:03 Urine Protein NEGATIVE mg/dL (NEGATIVE) 02/28/21 13:03 Urine Glucose (UA) NEGATIVE mg/dL (NEGATIVE) 02/28/21 13:03 Urine Ketones NEGATIVE mg/dL (NEGATIVE) 02/28/21 13:03 Urine Occult Blood LARGE (NEGATIVE) H 02/28/21 13:03 Urine Nitrite NEGATIVE (NEGATIVE) 02/28/21 13:03 Urine Bilirubin NEGATIVE (NEGATIVE) 02/28/21 13:03 Urine Urobilinogen 1 (NORMAL) E.U./dL (NORMAL) 02/28/21 13:03 Ur Leukocyte Esterase MODERATE (NEGATIVE) H 02/28/21 13:03 Urine RBC 6-10 /HPF (0-5) H 02/28/21 13:03 Urine WBC >25 /HPF (0-3) H 02/28/21 13:03 Ur Squamous Epith Cells NONE SEEN (<= Few) 02/28/21 13:03 Urine Bacteria Few /HPF (None Seen) 02/28/21 13:03 Ur Microscopic Review INDICATED 02/28/21 13:03 Urine Culture Comments INDICATED 02/28/21 13:03 Nasal Adenovirus (PCR) NOT DETECTED 02/28/21 14:05 Nasal B. parapertussis DNA (PCR) NOT DETECTED 02/28/21 14:05 Nasal Coronavir 229E PCR NOT DETECTED 02/28/21 14:05 Nasal Coronavir HKU1 PCR NOT DETECTED 02/28/21 14:05 Nasal Coronavir NL63 PCR NOT DETECTED 02/28/21 14:05 Nasal Coronavir OC43 PCR NOT DETECTED 02/28/21 14:05 Nasal Enterovir/Rhinovir PCR NOT DETECTED 02/28/21 14:05 Nasal Influenza B PCR NOT DETECTED 02/28/21 14:05 Nasal Influenza A PCR NOT DETECTED 02/28/21 14:05 Nasal Parainfluen 1 PCR NOT DETECTED 02/28/21 14:05 Nasal Parainfluen 2 PCR NOT DETECTED 02/28/21 14:05 Nasal Parainfluen 3 PCR NOT DETECTED 02/28/21 14:05 Nasal Parainfluen 4 PCR NOT DETECTED 02/28/21 14:05 Nasal RSV (PCR) NOT DETECTED 02/28/21 14:05 Nasal Screen MRSA (PCR) NEGATIVE (NEGATIVE) 03/01/21 22:00 Nasal B.pertussis DNA PCR NOT DETECTED 02/28/21 14:05 Nasal C.pneumoniae (PCR) NOT DETECTED 02/28/21 14:05 Gregory Human Metapneumo PCR NOT DETECTED 02/28/21 14:05 Nasal M.pneumoniae (PCR) NOT DETECTED 02/28/21 14:05 Nasal SARS-CoV-2 (PCR) NOT DETECTED 02/28/21 14:05 Stl C. diff Tox B Gene NEGATIVE (NEGATIVE) 03/03/21 00:30 Salicylates < 6.0 mg/dL 02/28/21 12:34 Urine Opiates Screen NEGATIVE (NEGATIVE) 02/28/21 13:03 Ur Oxycodone Screen NEGATIVE (NEGATIVE) 02/28/21 13:03 Urine Methadone Screen NEGATIVE (NEGATIVE) 02/28/21 13:03 Ur Propoxyphene Screen NEGATIVE (NEGATIVE) 02/28/21 13:03 Acetaminophen < 10 ug/mL (10-30) L 02/28/21 12:34 Ur Barbiturates Screen NEGATIVE (NEGATIVE) 02/28/21 13:03 Ur Tricyclics Screen NEGATIVE (NEGATIVE) 02/28/21 13:03 Ur Phencyclidine Scrn NEGATIVE (NEGATIVE) 02/28/21 13:03 Ur Amphetamine Screen NEGATIVE (NEGATIVE) 02/28/21 13:03 U Methamphetamines Scrn NEGATIVE (NEGATIVE) 02/28/21 13:03 U Benzodiazepines Scrn NEGATIVE (NEGATIVE) 02/28/21 13:03 Urine Cocaine Screen NEGATIVE (NEGATIVE) 02/28/21 13:03 U Cannabinoids Screen NEGATIVE (NEGATIVE) 02/28/21 13:03 Ethyl Alcohol < 5.0 mg/dL 02/28/21 12:34 - Procedures Procedures: Procedures DRAINAGE OF PERITONEAL CAVITY, PERCUTANEOUS APPROACH, DIAGN (12/19/15) TRANSFUSE NONAUT RED BLOOD CELLS IN PERIPH VEIN, PERC (12/19/15) Sepsis Event Note (H) - Evaluation Possible source of Sepsis: positive: Genitourinary, Skin/soft tissue ABX Reporting Has patient been on IV antibiotics over the past 48 hours?: No
[2021-03-12] MEDS: PRENATAL VITAMIN TABLET PO SCH (07:52)
[2021-03-12] MEDS: FERROUS GLUCONATE 324 MG TABLET PO SCH (07:52)
[2021-03-12] MEDS: diltiaZEM CD 120 MG CAPSULE PO SCH (07:52)
[2021-03-12] MEDS: METOPROLOL TARTRATE 25 MG TABLET PO SCH ×2 (07:52→20:43)
[2021-03-12] MEDS: TAMSULOSIN 0.4 MG CAPSULE PO SCH (07:52)
[2021-03-12] MEDS: THIAMINE 100 MG TABLET PO SCH (07:53)
[2021-03-12] MEDS: LACTULOSE 10 GM /15 ML UDC PO SCH (07:53)
[2021-03-12] MEDS: SACCHAROMYCES BOULARDII 250 MG CAPSULE PO SCH (07:53)
[2021-03-13] MEDS: PANTOPRAZOLE 40 MG TABLET PO SCH (06:39)
--- NOTE | 2021-03-13 07:30 | PROVIDER PROGRESS NOTE ---
Assessment/Plan - Problem List (1) Urinary incontinence with continuous leakage Assessment/Plan: Chronic indwelling Calix catheter. Patient is on Flomax. Will continue. (2) Acute renal failure Qualifiers: Qualified Code(s): N17.9 - Acute kidney failure, unspecified Assessment/Plan: Likely related to liver failure. Patient's renal function has improved today when compared to yesterday. Creatinine today is 1.4. Yesterday it was 3.0. Overall this is a significant improvement from admission when patient's creatinine was 10.3. We will continue to monitor. Anticipate further improvement. IV hydration was discontinued due to wheezing. (3) SVT (supraventricular tachycardia) Assessment/Plan: Stable/resolved. On Cardizem CD 120 mg daily. Continue metoprolol. Continue to monitor on tele metry. (4) Encephalopathy Assessment/Plan: Resolved. Patient is alert, oriented x3. On lactulose 10 g p.o. daily (5) End stage liver disease Assessment/Plan: Secondary to alcoholic cirrhosis. Abdomen is distended but soft and nontender. Patient's spironolactone and Lasix, reumed. On lactulose 10 g p.o. daily. On Protonix 40 mg p.o. daily AC. On vitamin B1. He is awaiting placement at a retirement facility. (6) Protein-calorie malnutrition, severe Assessment/Plan: On mechanical soft diet. Nutrition following. (7) Iron deficiency anemia due to dietary causes Assessment/Plan: Hemoglobin today is 7.2. We will continue to monitor. Ferrous sulfate 324 mg p.o. daily (8) Hypertension Assessment/Plan: Currently normotensive. On diltiazem and metoprolol. (9) Wheezing Assessment/Plan: Improved Breathing comfortably on room air with oxygen saturation 98%. (2) Acute renal failure Qualifiers: Qualified Code(s): N17.9 - Acute kidney failure, unspecified - Current Meds Current Meds: Current Medications Generic Name Dose Route Start Last Admin Trade Name Freq PRN Reason Stop Dose Admin Albuterol/Ipratropium 3 ml 03/02/21 06:57 03/03/21 13:35 Ipratropium/Albuterol 3 Ml Neb INH 3 ml Q4HR PRN Administration Wheezing Diltiazem HCl 120 mg 03/07/21 11:00 03/12/21 07:52 Diltiazem Cd 120 Mg Capsule PO 120 mg DAILY TRACI Administration Ferrous Gluconate 324 mg 03/09/21 09:00 03/12/21 07:52 Ferrous Gluconate 324 Mg Tablet PO 324 mg DAILYWM TRACI Administration Lactulose 10 gm 03/06/21 09:00 03/12/21 07:53 Lactulose 10 Gm /15 Ml Udc PO 10 gm DAILY TRACI Administration Metoprolol Tartrate 25 mg 03/05/21 13:00 03/12/21 20:43 Metoprolol Tartrate 25 Mg Tablet PO 25 mg BID TRACI Administration Morphine Sulfate 2 mg 03/03/21 00:20 03/05/21 03:27 Morphine 2 Mg/Ml Carpuject IVP 2 mg Q2HR PRN Administration PAIN Multi-Ingredient Ointment 1 applic 03/02/21 03:51 03/07/21 16:32 Zinc Oxide 20% Oint 30 Gm Tube TOP 1 applic PRN PRN Administration Skin Care Pantoprazole Sodium 40 mg 03/07/21 07:00 03/13/21 06:39 Pantoprazole 40 Mg Tablet PO 40 mg QDAC TRACI Administration Multivit/Folic Acid/Iron 1 tab 03/05/21 12:00 03/12/21 07:52 Vitamin Tablet PO 1 tab DAILYWM TRACI Administration Saccharomyces Boulardii 250 mg 03/11/21 09:00 03/12/21 07:53 Saccharomyces Boulardii 250 Mg Capsule PO 250 mg DAILY TRACI Administration Sodium Chloride 10 ml 03/01/21 21:15 03/05/21 06:07 Sodium Chloride Flush 0.9% 10 Ml Syringe IVP 10 ml PRN PRN Administration NEEDED PER PROVIDER ORDERS Sodium Chloride 10 ml 03/02/21 01:00 03/12/21 23:33 Sodium Chloride Flush 0.9% 10 Ml Syringe IVP 10 ml 0100,0900,1700 TRACI Administration Tamsulosin HCl 0.4 mg 03/09/21 09:00 03/12/21 07:52 Tamsulosin 0.4 Mg Capsule PO 0.4 mg DAILY TRACI Administration Thiamine HCl 100 mg 03/05/21 12:00 03/12/21 07:53 Thiamine 100 Mg Tablet PO 100 mg DAILY TRACI Administration Zinc Oxide 113 gm 03/01/21 22:30 03/08/21 14:54 Cod Liver Oil/Zinc Oxide 113 Gm Tube TOP 1 applic PRN PRN Administration Skin Care - Lab Result Fish Bone Diagrams: 03/12/21 04:38 03/12/21 04:38 Subjective - Subjective Patient Reports: Other (He was resting comfortably in bed at time of exam. He has been ambulating around the [facility] floor with no difficulties. He denies any complaints.) Objective Vital Signs: Vital Signs - 24 hr 03/12/21 03/12/21 03/12/21 07:52 07:53 11:45 Temperature 36.6 C Heart Rate 86 Heart Rate [ Brachial] Respiratory 16 20 Rate Blood Pressure 123/59 L Blood Pressure [Right Brachial artery] O2 Saturation 96 03/12/21 03/12/21 03/12/21 13:07 15:33 20:43 Temperature 36.6 C 36.6 C Heart Rate Heart Rate [ 82 86 Brachial] Respiratory 18 20 Rate Blood Pressure 143/67 H Blood Pressure 123/63 132/55 H [Right Brachial artery] O2 Saturation 97 98 03/12/21 03/12/21 23:32 23:40 Temperature 36.7 C Heart Rate 93 Heart Rate [ 93 Brachial] Respiratory 18 18 Rate Blood Pressure Blood Pressure 120/57 L [Right Brachial artery] O2 Saturation 96 Oxygen O2 Source [With Activity] Room air O2 Source Room air I&O (Last 24 Hrs): Intake and Output Totals x24h 03/11/21 03/12/21 03/13/21 23:59 23:59 23:59 Intake Total 4432 2130 200 Output Total 5300 2375 800 [facility] -[phone] Comments/Notes: General: Alert, Oriented x3, Cooperative, No acute distress HEENT: PERRLA, EOMI Neck: Supple, No JVD Neuro: Alert, Non Focal, Oriented Times 3 Cardiovascular: Regular rate Respiratory: Chest non-tender, No respiratory distress, Breath sounds nml, Wheezes (Mild) Abdomen: Normal bowel sounds, Soft, No tenderness, Other (distended) - Results Results: Laboratory Results WBC 6.3 x10^3/uL (4.8-10.8) 03/12/21 04:38 RBC 2.86 10^6/uL (4.70-6.10) L 03/12/21 04:38 Hgb 7.2 g/dL (14.0-18.0) L 03/12/21 04:38 Hct 22.8 % (42.0-52.0) L 03/12/21 04:38 MCV 79.7 fL (80.0-94.0) L 03/12/21 04:38 MCH 25.2 pg (27.0-31.0) L 03/12/21 04:38 MCHC 31.6 g/dL (32.0-36.0) L 03/12/21 04:38 RDW 26.8 % (12.0-15.0) H 03/12/21 04:38 Plt Count 105 10^3/uL (130-450) L 03/12/21 04:38 MPV 11.3 fL (7.4-11.4) 03/12/21 04:38 Reticulocyte % (Auto) 2.31 % (0.5-2.3) H 03/09/21 05:41 Neut # (Auto) 4.7 10^3/uL (1.5-6.6) 03/12/21 04:38 Lymph # (Auto) 0.5 10^3/uL (1.5-3.5) L 03/12/21 04:38 Harris # (Auto) 0.7 10^3/uL (0.0-1.0) 03/12/21 04:38 Eos # (Auto) 0.4 10^3/uL (0.0-0.7) 03/12/21 04:38 Baso # (Auto) 0.1 10^3/uL (0.0-0.1) 03/12/21 04:38 Absolute Nucleated RBC 0.00 x10^3/uL 03/12/21 04:38 Total Counted 100 03/08/21 04:09 Band Neuts % (Manual) Not Reportable 03/09/21 05:41 Abnorm Lymph % (Manual) Not Reportable 03/09/21 05:41 Nucleated RBC % 0.0 /100WBC 03/12/21 04:38 Neutrophils # (Manual) Not Reportable 03/09/21 05:41 Lymphocytes # (Manual) Not Reportable 03/09/21 05:41 Monocytes # (Manual) Not Reportable 03/09/21 05:41 Eosinophils # (Manual) Not Reportable 03/09/21 05:41 Basophils # (Manual) Not Reportable 03/09/21 05:41 Differential Comment MANUAL=AUTO DIFF 03/09/21 05:41 Manual Slide Review Indicated 03/12/21 04:38 WBC Morphology NORMAL APPEARANCE (NORMAL) 03/12/21 04:38 Platelet Estimate NORMAL (130-450,000) (NORMAL) 03/12/21 04:38 Platelet Morphology NORMAL APPEARANCE (NORMAL) 03/12/21 04:38 RBC Morph Micro Appear 2+ HYPOCHROMASIA (NORMAL) 1+ POLYCHROMASIA (NORMAL) 3+ ANISOCYTOSIS (NORMAL) 03/12/21 04:38 RBC Morph Micro Appear 2+ HYPOCHROMASIA (NORMAL) 1+ POLYCHROMASIA (NORMAL) 3+ ANISOCYTOSIS (NORMAL) 03/12/21 04:38 RBC Morph Micro Appear 2+ HYPOCHROMASIA (NORMAL) 1+ POLYCHROMASIA (NORMAL) 3+ ANISOCYTOSIS (NORMAL) 03/12/21 04:38 Absolute Retic 0.073 10^6/uL (0.020-0.110) 03/09/21 05:41 PT 16.3 secs (9.9-12.6) H 02/28/21 12:34 INR 1.5 (0.8-1.2) H 02/28/21 12:34 APTT 30.2 secs (24.9-33.3) 02/28/21 12:34 Bld Gas Analysis Time 2320 02/28/21 23:15 Sample Site RIGHT RADIAL 02/28/21 23:15 ABG pH 7.41 (7.35-7.45) 02/28/21 23:15 ABG pCO2 20 mmHg (34-45) L* 02/28/21 23:15 ABG pO2 89 mmHg (80-100) 02/28/21 23:15 ABG HCO3 12.5 mmol/L (22.0-26.0) L 02/28/21 23:15 ABG Total CO2 13.1 MMOL/L (21.0-29.0) L 02/28/21 23:15 ABG O2 Saturation 96 % (94-98) 02/28/21 23:15 ABG Base Excess -10.5 mmol/L (-2.0-3.0) L 02/28/21 23:15 Thanh Test POSITIVE 02/28/21 23:15 VBG pH 7.396 (7.31-7.41) 03/02/21 16:45 VBG pCO2 19.0 mmHg (41-51) L 02/28/21 22:02 VBG pO2 75.4 mmHg (25-47) H 02/28/21 22:02 VBG HCO3 11.7 mmol/L (23-28) L 02/28/21 22:02 VBG Total CO2 12.3 mmol/L (24-29) L 02/28/21 22:02 VBG O2 Saturation 93.4 % (60-80) H 02/28/21 22:02 VBG Base Excess -11.0 mmol/L (-2 - +2) L 02/28/21 22:02 Ionized Calcium 1.05 mmol/L (1.15-1.33) L 03/02/21 16:45 O2 Delivery Device NON REBREATHER MASK 02/28/21 23:15 FiO2 21.00 02/28/21 23:15 Sodium 138 mmol/L (135-145) 03/12/21 04:38 Potassium 3.5 mmol/L (3.5-5.0) 03/12/21 04:38 Chloride 107 mmol/L (101-111) 03/12/21 04:38 Carbon Dioxide 21 mmol/L (21-32) 03/12/21 04:38 Anion Gap 10.0 (6-13) 03/12/21 04:38 BUN 43 mg/dL (6-20) H 03/12/21 04:38 Creatinine 1.4 mg/dL (0.6-1.2) H 03/12/21 04:38 Estimated GFR (MDRD) 50 (>89) L 03/12/21 04:38 Glucose 103 mg/dL (70-100) H 03/12/21 04:38 Lactic Acid 2.5 mmol/L (0.5-2.2) H 02/28/21 21:44 Calcium 8.6 mg/dL (8.5-10.3) 03/12/21 04:38 Phosphorus 3.4 mg/dL (2.5-4.6) 03/09/21 05:41 Magnesium 1.9 mg/dL (1.7-2.8) 03/08/21 04:09 Iron 18 ug/dL (45-182) L 03/09/21 05:41 TIBC 193 ug/dL (250-450) L 03/09/21 05:41 % Saturation 9 % (20-50) L 03/09/21 05:41 Transferrin 138 mg/dL (180-329) L 03/09/21 05:41 Ferritin 110.3 ng/mL (23.9-336.2) 03/09/21 05:41 Total Bilirubin 2.7 mg/dL (0.2-1.0) H 03/05/21 04:48 AST 19 IU/L (10-42) 03/05/21 04:48 ALT 15 IU/L (10-60) 03/05/21 04:48 Alkaline Phosphatase 100 IU/L (42-121) 03/05/21 04:48 Ammonia 22.0 umol/L (7-35) 03/07/21 11:55 Lactate Dehydrogenase 135 IU/L (91-225) 03/09/21 05:41 Total Creatine Kinase 36 IU/L (22-269) 02/28/21 12:34 Troponin I High Sens 17.5 ng/L (2.3-19.7) 03/03/21 16:42 B-Natriuretic Peptide 313 pg/mL (5-100) H 03/01/21 02:39 Total Protein 6.0 g/dL (6.7-8.2) L 03/05/21 04:48 Albumin 2.1 g/dL (3.2-5.5) L 03/05/21 04:48 Globulin 3.9 g/dL (2.1-4.2) 03/05/21 04:48 Albumin/Globulin Ratio 0.5 (1.0-2.2) L 03/05/21 04:48 Lipase 251 U/L (22-51) H 02/28/21 21:44 Vitamin B12 1216 pg/mL (180-914) H 03/09/21 05:41 Folate 32.00 ng/mL (5.90 - >24.8) 03/09/21 05:41 TSH 2.35 uIU/mL (0.34-5.60) 02/28/21 12:34 Free T4 0.69 ng/dL (0.58-1.64) 02/28/21 12:34 Urine Color DARK YELLOW 02/28/21 13:03 Urine Clarity CLOUDY (CLEAR) 02/28/21 13:03 Urine pH 6.0 PH (5.0-7.5) 02/28/21 13:03 Ur Specific [place] 1.015 (1.002-1.030) 02/28/21 13:03 Urine Protein NEGATIVE mg/dL (NEGATIVE) 02/28/21 13:03 Urine Glucose (UA) NEGATIVE mg/dL (NEGATIVE) 02/28/21 13:03 Urine Ketones NEGATIVE mg/dL (NEGATIVE) 02/28/21 13:03 Urine Occult Blood LARGE (NEGATIVE) H 02/28/21 13:03 Urine Nitrite NEGATIVE (NEGATIVE) 02/28/21 13:03 Urine Bilirubin NEGATIVE (NEGATIVE) 02/28/21 13:03 Urine Urobilinogen 1 (NORMAL) E.U./dL (NORMAL) 02/28/21 13:03 Ur Leukocyte Esterase MODERATE (NEGATIVE) H 02/28/21 13:03 Urine RBC 6-10 /HPF (0-5) H 02/28/21 13:03 Urine WBC >25 /HPF (0-3) H 02/28/21 13:03 Ur Squamous Epith Cells NONE SEEN (<= Few) 02/28/21 13:03 Urine Bacteria Few /HPF (None Seen) 02/28/21 13:03 Ur Microscopic Review INDICATED 02/28/21 13:03 Urine Culture Comments INDICATED 02/28/21 13:03 Nasal Adenovirus (PCR) NOT DETECTED 02/28/21 14:05 Nasal B. parapertussis DNA (PCR) NOT DETECTED 02/28/21 14:05 Nasal Coronavir 229E PCR NOT DETECTED 02/28/21 14:05 Nasal Coronavir HKU1 PCR NOT DETECTED 02/28/21 14:05 Nasal Coronavir NL63 PCR NOT DETECTED 02/28/21 14:05 Nasal Coronavir OC43 PCR NOT DETECTED 02/28/21 14:05 Nasal Enterovir/Rhinovir PCR NOT DETECTED 02/28/21 14:05 Nasal Influenza B PCR NOT DETECTED 02/28/21 14:05 Nasal Influenza A PCR NOT DETECTED 02/28/21 14:05 Nasal Parainfluen 1 PCR NOT DETECTED 02/28/21 14:05 Nasal Parainfluen 2 PCR NOT DETECTED 02/28/21 14:05 Nasal Parainfluen 3 PCR NOT DETECTED 02/28/21 14:05 Nasal Parainfluen 4 PCR NOT DETECTED 02/28/21 14:05 Nasal RSV (PCR) NOT DETECTED 02/28/21 14:05 Nasal Screen MRSA (PCR) NEGATIVE (NEGATIVE) 03/01/21 22:00 Nasal B.pertussis DNA PCR NOT DETECTED 02/28/21 14:05 Nasal C.pneumoniae (PCR) NOT DETECTED 02/28/21 14:05 Gregory Human Metapneumo PCR NOT DETECTED 02/28/21 14:05 Nasal M.pneumoniae (PCR) NOT DETECTED 02/28/21 14:05 Nasal SARS-CoV-2 (PCR) NOT DETECTED 02/28/21 14:05 Stl C. diff Tox B Gene NEGATIVE (NEGATIVE) 03/03/21 00:30 Salicylates < 6.0 mg/dL 02/28/21 12:34 Urine Opiates Screen NEGATIVE (NEGATIVE) 02/28/21 13:03 Ur Oxycodone Screen NEGATIVE (NEGATIVE) 02/28/21 13:03 Urine Methadone Screen NEGATIVE (NEGATIVE) 02/28/21 13:03 Ur Propoxyphene Screen NEGATIVE (NEGATIVE) 02/28/21 13:03 Acetaminophen < 10 ug/mL (10-30) L 02/28/21 12:34 Ur Barbiturates Screen NEGATIVE (NEGATIVE) 02/28/21 13:03 Ur Tricyclics Screen NEGATIVE (NEGATIVE) 02/28/21 13:03 Ur Phencyclidine Scrn NEGATIVE (NEGATIVE) 02/28/21 13:03 Ur Amphetamine Screen NEGATIVE (NEGATIVE) 02/28/21 13:03 U Methamphetamines Scrn NEGATIVE (NEGATIVE) 02/28/21 13:03 U Benzodiazepines Scrn NEGATIVE (NEGATIVE) 02/28/21 13:03 Urine Cocaine Screen NEGATIVE (NEGATIVE) 02/28/21 13:03 U Cannabinoids Screen NEGATIVE (NEGATIVE) 02/28/21 13:03 Ethyl Alcohol < 5.0 mg/dL 02/28/21 12:34 - Procedures Procedures: Procedures DRAINAGE OF PERITONEAL CAVITY, PERCUTANEOUS APPROACH, DIAGN (12/19/15) TRANSFUSE NONAUT RED BLOOD CELLS IN PERIPH VEIN, PERC (12/19/15) Sepsis Event Note (H) - Evaluation Possible source of Sepsis: positive: Genitourinary, Skin/soft tissue ABX Reporting Has patient been on IV antibiotics over the past 48 hours?: No
[2021-03-13] MEDS: METOPROLOL TARTRATE 25 MG TABLET PO SCH ×2 (09:24→21:11)
[2021-03-13] MEDS: SACCHAROMYCES BOULARDII 250 MG CAPSULE PO SCH (09:24)
[2021-03-13] MEDS: THIAMINE 100 MG TABLET PO SCH (09:27)
[2021-03-13] MEDS: diltiaZEM CD 120 MG CAPSULE PO SCH (09:27)
[2021-03-13] MEDS: TAMSULOSIN 0.4 MG CAPSULE PO SCH (09:27)
[2021-03-13] MEDS: FERROUS GLUCONATE 324 MG TABLET PO SCH (09:28)
[2021-03-13] MEDS: PRENATAL VITAMIN TABLET PO SCH (09:28)
[2021-03-13] MEDS: SODIUM CHLORIDE FLUSH 0.9% 10 ML SYRINGE IVP SCH ×3 (09:30→23:24)
[2021-03-13] MEDS: LACTULOSE 10 GM /15 ML UDC PO SCH (09:32)
[2021-03-13] MEDS ORDERED: PROPRANOLOL 10 MG TABLET PO SCH (21:00)
[2021-03-14 05:15] LABS: BASOPHILS # (AUTO) 0.1 10^3/uL (0.0-0.1); EOSINOPHILS # (AUTO) 0.3 10^3/uL (0.0-0.7); EOSINOPHILS % (AUTO) 6.5 %; HCT - HEMATOCRIT 23.6 % (42.0-52.0); HGB - HEMOGLOBIN 7.2 g/dL (14.0-18.0); LYMPHOCYTES # (AUTO) 0.6 10^3/uL (1.5-3.5); LYMPHOCYTES % (AUTO) 11.5 %; MEAN CORPUSCULAR HEMOGLOBIN 24.7 pg (27.0-31.0); MEAN CORPUSCULAR HGB CONC 30.5 g/dL (32.0-36.0); MEAN CORPUSCULAR VOLUME 80.8 fL (80.0-94.0); MEAN PLATELET VOLUME 9.8 fL (7.4-11.4); MONOCYTES # (AUTO) 0.7 10^3/uL (0.0-1.0); MONOCYTES % (AUTO) 13.4 %; NEUTROPHILS # (AUTO) 3.3 10^3/uL (1.5-6.6); PLT - PLATELET COUNT 119 10^3/uL (130-450); RED BLOOD COUNT 2.92 10^6/uL (4.70-6.10); RED CELL DISTRIBUTION WIDTH 26.9 % (12.0-15.0); WHITE BLOOD COUNT 4.9 x10^3/uL (4.8-10.8)
[2021-03-14 05:17] LABS: SLIDE REVIEW? Indicated
[2021-03-14 05:24] LABS: CALCIUM 8.3 mg/dL (8.5-10.3); CREATININE 1.1 mg/dL (0.6-1.2); POTASSIUM 3.5 mmol/L (3.5-5.0)
[2021-03-14 05:32] LABS: PLATELET ESTIMATE, MANUAL DECREASED (<130,000) (NORMAL); PLATELET MORPHOLOGY NORMAL APPEARANCE (NORMAL); RBC MORPHOLOGY (MULTIPLE) 2+ ANISOCYTOSIS (NORMAL)
[2021-03-14 05:33] LABS: WBC MORPHOLOGY (MULTIPLE) NORMAL APPEARANCE (NORMAL)
[2021-03-14] MEDS: PANTOPRAZOLE 40 MG TABLET PO SCH (05:51)
[2021-03-14] MEDS: THIAMINE 100 MG TABLET PO SCH (08:24)
[2021-03-14] MEDS: PRENATAL VITAMIN TABLET PO SCH (08:24)
[2021-03-14] MEDS: TAMSULOSIN 0.4 MG CAPSULE PO SCH (08:24)
[2021-03-14] MEDS: METOPROLOL TARTRATE 25 MG TABLET PO SCH (08:24)
[2021-03-14] MEDS: SPIRONOLACTONE 25 MG TABLET PO SCH (08:24)
[2021-03-14] MEDS: SACCHAROMYCES BOULARDII 250 MG CAPSULE PO SCH (08:27)
[2021-03-14] MEDS: FERROUS GLUCONATE 324 MG TABLET PO SCH (08:27)
[2021-03-14] MEDS: SODIUM CHLORIDE FLUSH 0.9% 10 ML SYRINGE IVP SCH ×3 (08:27→23:14)
[2021-03-14] MEDS: diltiaZEM CD 120 MG CAPSULE PO SCH (08:27)
[2021-03-14] MEDS: FUROSEMIDE 20 MG TABLET PO SCH (08:27)
[2021-03-14] MEDS: LACTULOSE 10 GM /15 ML UDC PO SCH (08:32)
[2021-03-14] MEDS: PROPRANOLOL 10 MG TABLET PO SCH ×2 (12:36→20:44)
--- NOTE | 2021-03-14 14:03 | PROVIDER PROGRESS NOTE ---
Subjective - Prog Note Date Prog Note Date: 03/14/21 - Subjective Subjective: He reports doing well. He has a good appetite. Denies any abdominal pain. He has been ambulating with physical therapy. Current Medications - Current Medications Current Medications: Active Medications Albuterol/Ipratropium (Ipratropium/Albuterol 3 Ml Neb) 3 ml INH Q4HR PRN PRN Reason: Wheezing Last Admin: 03/03/21 13:35 Dose: 3 ml Documented by: Diltiazem HCl (Diltiazem Cd 120 Mg Capsule) 120 mg PO DAILY [facility] Last Admin: 03/14/21 08:27 Dose: 120 mg Documented by: Ferrous Gluconate (Ferrous Gluconate 324 Mg Tablet) 324 mg PO DAILYWM [facility] Last Admin: 03/14/21 08:27 Dose: 324 mg Documented by: Furosemide (Furosemide 20 Mg Tablet) 20 mg PO DAILY [facility] Last Admin: 03/14/21 08:27 Dose: 20 mg Documented by: Lactulose (Lactulose 10 Gm /15 Ml Udc) 10 gm PO DAILY [facility] Last Admin: 03/14/21 08:32 Dose: 10 gm Documented by: Morphine Sulfate (Morphine 2 Mg/Ml Carpuject) 2 mg IVP Q2HR PRN PRN Reason: PAIN Last Admin: 03/05/21 03:27 Dose: 2 mg Documented by: Multi-Ingredient Ointment (Zinc Oxide 20% Oint 30 Gm Tube) 1 applic TOP PRN PRN PRN Reason: Skin Care Last Admin: 03/07/21 16:32 Dose: 1 applic Documented by: Ondansetron HCl (Ondansetron 4 Mg/2 Ml Vial) 4 mg IVP Q6HR PRN PRN Reason: Nausea / Vomiting Pantoprazole Sodium (Pantoprazole 40 Mg Tablet) 40 mg PO QDAC [facility] Last Admin: 03/14/21 05:51 Dose: 40 mg Documented by: Multivit/Folic Acid/Iron ( Vitamin Tablet) 1 tab PO DAILYWM [facility] Last Admin: 03/14/21 08:24 Dose: 1 tab Documented by: Propranolol HCl (Propranolol 10 Mg Tablet) 10 mg PO BID [facility] Last Admin: 03/14/21 12:36 Dose: Not Given Documented by: Saccharomyces Boulardii (Saccharomyces Boulardii 250 Mg Capsule) 250 mg PO DAILY [facility] Last Admin: 03/14/21 08:27 Dose: 250 mg Documented by: Sodium Chloride (Sodium Chloride Flush 0.9% 10 Ml Syringe) 10 ml IVP PRN PRN PRN Reason: NEEDED PER PROVIDER ORDERS Last Admin: 03/05/21 06:07 Dose: 10 ml Documented by: Sodium Chloride (Sodium Chloride Flush 0.9% 10 Ml Syringe) 10 ml IVP 0100,0900,1700 [facility] Last Admin: 03/14/21 08:27 Dose: Not Given Documented by: Spironolactone (Spironolactone 25 Mg Tablet) 25 mg PO DAILY [facility] Last Admin: 03/14/21 08:24 Dose: 25 mg Documented by: Tamsulosin HCl (Tamsulosin 0.4 Mg Capsule) 0.4 mg PO DAILY [facility] Last Admin: 03/14/21 08:24 Dose: 0.4 mg Documented by: Thiamine HCl (Thiamine 100 Mg Tablet) 100 mg PO DAILY [facility] Last Admin: 03/14/21 08:24 Dose: 100 mg Documented by: Zinc Oxide (Cod Liver Oil/Zinc Oxide 113 Gm Tube) 113 gm TOP PRN PRN PRN Reason: Skin Care Last Admin: 03/08/21 14:54 Dose: 1 applic Documented by: Furosemide [Lasix] 20 mg PO DAILY 07/31/20 Propranolol [Inderal] 10 mg PO BID 07/31/20 Spironolactone [Aldactone] 25 mg PO DAILY 07/31/20 Objective - Vital Signs/Intake & Output Reviewed Vital Signs: Yes Vital Signs: Vital Signs x48h Temp Pulse Pulse Resp BP BP Pulse Ox 03/14/21 11:15 88 18 03/14/21 08:24 120/58 L 03/14/21 08:05 36.8 C 88 18 120/58 L 96 Intake & Output: Intake & Output 03/11/21 03/12/21 03/13/21 03/14/21 23:59 23:59 23:59 23:59 Intake Total 4432 2130 1880 1670 Output Total 9180 2376 2750 1700 [facility] -[phone] - Objective General Appearance: positive: No acute distress, Alert Eyes Bilateral: positive: Normal inspection, Conjunctivae nml ENT: positive: ENT inspection nml Neck: positive: Nml inspection Respiratory: positive: No respiratory distress. negative: Wheezes, Rales Cardiovascular: positive: Regular rate & rhythm. negative: Tachycardia, Systolic murmur Abdomen: positive: Non-tender. negative: No distention, Tenderness, Guarding, Rebound Skin: positive: Warm, Dry Extremities: positive: No pedal edema Neurologic/Psychiatric: positive: Disoriented to time, Other (No focal deficits.). negative: Disoriented to person - Lab Results Fish Bones: 03/14/21 05:05 03/14/21 05:05 Other Labs: Lab Results x24hrs 03/14/21 03/14/21 Range/Units 05:05 05:05 WBC 4.9 (4.8-10.8) x10^3/uL RBC 2.92 L (4.70-6.10) 10^6/uL Hgb 7.2 L (14.0-18.0) g/dL Hct 23.6 L (42.0-52.0) % MCV 80.8 (80.0-94.0) fL MCH 24.7 L (27.0-31.0) pg MCHC 30.5 L (32.0-36.0) g/dL RDW 26.9 H (12.0-15.0) % Plt Count 119 L (130-450) 10^3/uL MPV 9.8 (7.4-11.4) fL Neut # (Auto) 3.3 (1.5-6.6) 10^3/uL Lymph # (Auto) 0.6 L (1.5-3.5) 10^3/uL [place] # (Auto) 0.7 (0.0-1.0) 10^3/uL Eos # (Auto) 0.3 (0.0-0.7) 10^3/uL Baso # (Auto) 0.1 (0.0-0.1) 10^3/uL Absolute Nucleated RBC 0.00 x10^3/uL Nucleated RBC % 0.0 /100WBC Manual Slide Review Indicated WBC Morphology NORMAL APPEARANCE (NORMAL) Platelet Estimate DECREASED (<130,000) (NORMAL) Platelet Morphology NORMAL APPEARANCE (NORMAL) RBC Morph Micro Appear 2+ ANISOCYTOSIS (NORMAL) Sodium 133 L (135-145) mmol/L Potassium 3.5 (3.5-5.0) mmol/L Chloride 101 (101-111) mmol/L Carbon Dioxide 23 (21-32) mmol/L Anion Gap 9.0 (6-13) BUN 25 H (6-20) mg/dL Creatinine 1.1 (0.6-1.2) mg/dL Estimated GFR (MDRD) 66 L (>89) Glucose 108 H (70-100) mg/dL Calcium 8.3 L (8.5-10.3) mg/dL Sepsis Event Note (H) - Evaluation Possible source of Sepsis: positive: Genitourinary, Skin/soft tissue Assessment/Plan - Problem List (1) Acute renal failure Impression: This is resolved. It was likely prerenal injury due to dehydration. His creatinine is down to 1.1 and his BUN to 25. We will continue to monitor his renal function as his diuretics are resumed. Qualifiers: Qualified Code(s): N17.9 - Acute kidney failure, unspecified (2) Encephalopathy Impression: This is resolved. This was secondary to hyperammonemia. He appears back to his baseline although he does have cognitive deficits at baseline. Continue lactulose. (3) End stage liver disease Impression: This is secondary to alcoholic cirrhosis. His abdomen is distended but soft and there is currently no indication for paracentesis. We have resumed his spironolactone and Lasix. We have also resumed his propanolol today. He is pending placement to retirement facility or long-term assisted living. (4) SVT (supraventricular tachycardia) Impression: Stable. We are continuing Cardizem. (5) Urinary incontinence with continuous leakage Impression: Stable. He is a chronic indwelling Calix catheter which we have continued. He is also on Flomax. (6) Iron deficiency anemia due to dietary causes Impression: His hemoglobin is stable in the low 7's. He had been started on iron for suspected iron deficiency anemia which we will continue. (7) Staphylococcus aureus bacteremia Impression: Initial blood cultures grew Staph aureus in just the anaerobic bottle. The other cultures were negative. Repeat blood cultures have been negative to date. He was treated with Zosyn IV for 6 days given elevated white count but antibiotics have since been discontinued.
[2021-03-15 05:27] LABS: BASOPHILS # (AUTO) 0.1 10^3/uL (0.0-0.1); EOSINOPHILS # (AUTO) 0.3 10^3/uL (0.0-0.7); HCT - HEMATOCRIT 23.9 % (42.0-52.0); HGB - HEMOGLOBIN 7.3 g/dL (14.0-18.0); LYMPHOCYTES # (AUTO) 0.5 10^3/uL (1.5-3.5); LYMPHOCYTES % (AUTO) 11.1 %; MEAN CORPUSCULAR HEMOGLOBIN 24.9 pg (27.0-31.0); MEAN CORPUSCULAR HGB CONC 30.5 g/dL (32.0-36.0); MEAN CORPUSCULAR VOLUME 81.6 fL (80.0-94.0); MEAN PLATELET VOLUME 11.1 fL (7.4-11.4); MONOCYTES # (AUTO) 0.7 10^3/uL (0.0-1.0); MONOCYTES % (AUTO) 13.4 %; NEUTROPHILS # (AUTO) 3.3 10^3/uL (1.5-6.6); NEUTROPHILS % (AUTO) 66.9 %; PLT - PLATELET COUNT 79 10^3/uL (130-450); RED BLOOD COUNT 2.93 10^6/uL (4.70-6.10); RED CELL DISTRIBUTION WIDTH 26.8 % (12.0-15.0); WHITE BLOOD COUNT 4.9 x10^3/uL (4.8-10.8)
[2021-03-15 05:32] LABS: CALCIUM 8.4 mg/dL (8.5-10.3); CREATININE 0.9 mg/dL (0.6-1.2); POTASSIUM 3.7 mmol/L (3.5-5.0)
[2021-03-15 05:38] LABS: SLIDE REVIEW? Indicated
[2021-03-15] MEDS: PANTOPRAZOLE 40 MG TABLET PO SCH (05:44)
[2021-03-15 05:57] LABS: PLATELET ESTIMATE, MANUAL DECREASED (<130,000) (NORMAL)
[2021-03-15] MEDS: diltiaZEM CD 120 MG CAPSULE PO SCH (09:07)
[2021-03-15] MEDS: PROPRANOLOL 10 MG TABLET PO SCH ×2 (09:07→20:31)
[2021-03-15] MEDS: THIAMINE 100 MG TABLET PO SCH (09:07)
[2021-03-15] MEDS: FERROUS GLUCONATE 324 MG TABLET PO SCH (09:07)
[2021-03-15] MEDS: TAMSULOSIN 0.4 MG CAPSULE PO SCH (09:07)
[2021-03-15] MEDS: PRENATAL VITAMIN TABLET PO SCH (09:07)
[2021-03-15] MEDS: SPIRONOLACTONE 25 MG TABLET PO SCH (09:07)
[2021-03-15] MEDS: SODIUM CHLORIDE FLUSH 0.9% 10 ML SYRINGE IVP SCH ×2 (09:08→20:31)
[2021-03-15] MEDS: FUROSEMIDE 20 MG TABLET PO SCH (09:08)
[2021-03-15] MEDS: SACCHAROMYCES BOULARDII 250 MG CAPSULE PO SCH (09:08)
[2021-03-15] MEDS: LACTULOSE 10 GM /15 ML UDC PO SCH (09:08)
--- NOTE | 2021-03-15 23:13 | PROVIDER PROGRESS NOTE ---
Subjective - Prog Note Date Prog Note Date: 03/15/21 Prog Note Time: 23:12 - Subjective Subjective: I was the provider that admitted him. He is remarkably improved from admission to now. He is alert, verbal. Still with psychomotor slowing. Walking with ph ysical therapy, eating 75 to 100% of his food. He denies any significant pain or complaints. Current Medications - Current Medications Current Medications: Active Medications Diltiazem HCl (Diltiazem Cd 120 Mg Capsule) 120 mg PO DAILY [facility] Last Admin: 03/15/21 09:07 Dose: 120 mg Documented by: Ferrous Gluconate (Ferrous Gluconate 324 Mg Tablet) 324 mg PO DAILYWM [facility] Last Admin: 03/15/21 09:07 Dose: 324 mg Documented by: Furosemide (Furosemide 20 Mg Tablet) 20 mg PO DAILY [facility] Last Admin: 03/15/21 09:08 Dose: 20 mg Documented by: Lactulose (Lactulose 10 Gm /15 Ml Udc) 10 gm PO DAILY [facility] Last Admin: 03/15/21 09:08 Dose: 10 gm Documented by: Morphine Sulfate (Morphine 2 Mg/Ml Carpuject) 2 mg IVP Q2HR PRN PRN Reason: PAIN Last Admin: 03/05/21 03:27 Dose: 2 mg Documented by: Multi-Ingredient Ointment (Zinc Oxide 20% Oint 30 Gm Tube) 1 applic TOP PRN PRN PRN Reason: Skin Care Last Admin: 03/07/21 16:32 Dose: 1 applic Documented by: Ondansetron HCl (Ondansetron 4 Mg/2 Ml Vial) 4 mg IVP Q6HR PRN PRN Reason: Nausea / Vomiting Pantoprazole Sodium (Pantoprazole 40 Mg Tablet) 40 mg PO QDAC [facility] Last Admin: 03/15/21 05:44 Dose: 40 mg Documented by: Multivit/Folic Acid/Iron ( Vitamin Tablet) 1 tab PO DAILYWM [facility] Last Admin: 03/15/21 09:07 Dose: 1 tab Documented by: Propranolol HCl (Propranolol 10 Mg Tablet) 10 mg PO BID [facility] Last Admin: 03/15/21 20:31 Dose: 10 mg Documented by: Saccharomyces Boulardii (Saccharomyces Boulardii 250 Mg Capsule) 250 mg PO DAILY [facility] Last Admin: 03/15/21 09:08 Dose: 250 mg Documented by: Sodium Chloride (Sodium Chloride Flush 0.9% 10 Ml Syringe) 10 ml IVP PRN PRN PRN Reason: NEEDED PER PROVIDER ORDERS Last Admin: 03/05/21 06:07 Dose: 10 ml Documented by: Sodium Chloride (Sodium Chloride Flush 0.9% 10 Ml Syringe) 10 ml IVP 0100,0900,1700 [facility] Last Admin: 03/15/21 20:31 Dose: 10 ml Documented by: Spironolactone (Spironolactone 25 Mg Tablet) 25 mg PO DAILY [facility] Last Admin: 03/15/21 09:07 Dose: 25 mg Documented by: Tamsulosin HCl (Tamsulosin 0.4 Mg Capsule) 0.4 mg PO DAILY [facility] Last Admin: 03/15/21 09:07 Dose: 0.4 mg Documented by: Thiamine HCl (Thiamine 100 Mg Tablet) 100 mg PO DAILY [facility] Last Admin: 03/15/21 09:07 Dose: 100 mg Documented by: Zinc Oxide (Cod Liver Oil/Zinc Oxide 113 Gm Tube) 113 gm TOP PRN PRN PRN Reason: Skin Care Last Admin: 03/08/21 14:54 Dose: 1 applic Documented by: Furosemide [Lasix] 20 mg PO DAILY 07/31/20 Propranolol [Inderal] 10 mg PO BID 07/31/20 Spironolactone [Aldactone] 25 mg PO DAILY 07/31/20 Objective - Vital Signs/Intake & Output Reviewed Vital Signs: Yes Vital Signs: Vital Signs x48h Temp Pulse Resp BP Pulse Ox 03/15/21 16:10 37 C 95 18 109/58 L 95 Intake & Output: Intake & Output 03/12/21 03/13/21 03/14/21 03/15/21 23:59 23:59 23:59 23:59 Intake Total 2130 1880 2308 2009 Output Total 0645 2750 2750 2730 Balance -245 -870 -442 -720 - Objective General Appearance: positive: Alert, Other (5 foot 7 inch elderly gentleman who looks much older than stated age) Eyes Bilateral: positive: PERRL, EOMI ENT: positive: No signs of dehydration, Other (Low, hoarse voice) Neck: positive: No JVD Respiratory: positive: No respiratory distress, Other (When I first met him, he was wheezing on a daily basis. Not really responsive to bronchodilators. No wheezing at this time). negative: Wheezes, Rales, Rhonchi Cardiovascular: positive: Regular rate & rhythm, Systolic murmur. negative: Gallop/S4, Friction rub Abdomen: positive: Non-tender, No organomegaly, Nml bowel sounds, Other (Soft distention, fluid wave that I felt before is less palpable) Skin: positive: Warm, Dry Extremities: positive: No pedal edema Neurologic/Psychiatric: positive: CN's nml (2-12), Disoriented to time. negative: Motor nml (He went from obtundation, unresponsive to slow/slow psychomotor responses. Definitely improved from last week to now.) - Lab Results Fish Bones: 03/15/21 04:49 03/15/21 04:49 Other Labs: Lab Results x24hrs 03/15/21 03/15/21 02/28/21 Range/Units 04:49 04:49 12:27 WBC 4.9 (4.8-10.8) x10^3/uL RBC 2.93 L (4.70-6.10) 10^6/uL Hgb 7.3 L (14.0-18.0) g/dL Hct 23.9 L (42.0-52.0) % MCV 81.6 (80.0-94.0) fL MCH 24.9 L (27.0-31.0) pg MCHC 30.5 L (32.0-36.0) g/dL RDW 26.8 H (12.0-15.0) % Plt Count 79 L (130-450) 10^3/uL MPV 11.1 (7.4-11.4) fL Neut # (Auto) 3.3 (1.5-6.6) 10^3/uL Lymph # (Auto) 0.5 L (1.5-3.5) 10^3/uL Luna # (Auto) 0.7 (0.0-1.0) 10^3/uL Eos # (Auto) 0.3 (0.0-0.7) 10^3/uL Baso # (Auto) 0.1 (0.0-0.1) 10^3/uL Absolute Nucleated RBC 0.00 x10^3/uL Nucleated RBC % 0.0 /100WBC Manual Slide Review Indicated Platelet Estimate DECREASED (<130,000) (NORMAL) RBC Morph Micro Appear 1+ OVALOCYTES (NORMAL) Sodium 134 L (135-145) mmol/L Potassium 3.7 (3.5-5.0) mmol/L Chloride 102 (101-111) mmol/L Carbon Dioxide 24 (21-32) mmol/L Anion Gap 8.0 (6-13) BUN 22 H (6-20) mg/dL Creatinine 0.9 (0.6-1.2) mg/dL Estimated GFR (MDRD) 83 L (>89) Glucose 99 (70-100) mg/dL POC Whole Bld Glucose 134 H (70 - 100) mg/dL Calcium 8.4 L (8.5-10.3) mg/dL ABX Reporting Has patient been on IV antibiotics over the past 48 hours?: No Sepsis Event Note (H) - Evaluation Possible source of Sepsis: positive: Genitourinary, Skin/soft tissue Assessment/Plan - Problem List (1) Acute renal failure Impression: There are no changes in today's note when compared to yesterday's note. This is resolved. It was likely prerenal injury due to dehydration. His creatinine is down to 1.1 and his BUN to 25. We will continue to monitor his renal function as his diuretics are resumed. Qualifiers: Qualified Code(s): N17.9 - Acute kidney failure, unspecified (2) Encephalopathy Impression: This is resolved. This was secondary to hyperammonemia. He appears back to his baseline although he does have cognitive deficits at baseline. Continue lactulose. (3) End stage liver disease Impression: This is secondary to alcoholic cirrhosis. His abdomen is distended but soft and there is currently no indication for paracentesis. We have resumed his spironolactone and Lasix. We have also resumed his propanolol today. He is pending placement to prison facility or long-term assisted living.We will continue to see him on a daily basis with nonbillable rounding. (4) SVT (supraventricular tachycardia) Impression: Stable. We are continuing Cardizem. (5) Urinary incontinence with continuous leakage Impression: Stable. He is a chronic indwelling Calix catheter which we have continued. He is also on Flomax. (6) Iron deficiency anemia due to dietary causes Impression: His hemoglobin is stable in the low 7's. He had been started on iron for suspected iron deficiency anemia which we will continue. (7) Staphylococcus aureus bacteremia Impression: Initial blood cultures grew Staph aureus in just the anaerobic bottle. The other cultures were negative. Repeat blood cultures have been negative to date. He was treated with Zosyn IV for 6 days given elevated white count but antibiotics have since been discontinued. Qualifiers: Qualified Code(s): N17.9 - Acute kidney failure, unspecified
[2021-03-16] MEDS: SODIUM CHLORIDE FLUSH 0.9% 10 ML SYRINGE IVP SCH ×3 (05:15→17:03)
[2021-03-16 06:20] LABS: BASOPHILS % (AUTO) 0.9 %; EOSINOPHILS # (AUTO) 0.3 10^3/uL (0.0-0.7); EOSINOPHILS % (AUTO) 7.6 %; HGB - HEMOGLOBIN 7.1 g/dL (14.0-18.0); LYMPHOCYTES # (AUTO) 0.6 10^3/uL (1.5-3.5); LYMPHOCYTES % (AUTO) 13.7 %; MEAN CORPUSCULAR HEMOGLOBIN 24.8 pg (27.0-31.0); MEAN CORPUSCULAR HGB CONC 30.9 g/dL (32.0-36.0); MEAN CORPUSCULAR VOLUME 80.4 fL (80.0-94.0); MEAN PLATELET VOLUME 10.3 fL (7.4-11.4); MONOCYTES # (AUTO) 0.7 10^3/uL (0.0-1.0); MONOCYTES % (AUTO) 15.6 %; NEUTROPHILS # (AUTO) 2.7 10^3/uL (1.5-6.6); NEUTROPHILS % (AUTO) 61.5 %; PLT - PLATELET COUNT 140 10^3/uL (130-450); RED BLOOD COUNT 2.86 10^6/uL (4.70-6.10); RED CELL DISTRIBUTION WIDTH 26.5 % (12.0-15.0); WHITE BLOOD COUNT 4.4 x10^3/uL (4.8-10.8)
[2021-03-16 06:23] LABS: SLIDE REVIEW? Indicated
[2021-03-16 06:32] LABS: CALCIUM 8.4 mg/dL (8.5-10.3); POTASSIUM 3.3 mmol/L (3.5-5.0)
[2021-03-16] MEDS: PANTOPRAZOLE 40 MG TABLET PO SCH (06:56)
[2021-03-16] MEDS ORDERED: POTASSIUM CHLORIDE 10 MEQ CAPSULE PO ONE (08:00)
[2021-03-16] MEDS: TAMSULOSIN 0.4 MG CAPSULE PO SCH (08:04)
[2021-03-16] MEDS: SPIRONOLACTONE 25 MG TABLET PO SCH (08:04)
[2021-03-16] MEDS: FERROUS GLUCONATE 324 MG TABLET PO SCH (08:05)
[2021-03-16] MEDS: SACCHAROMYCES BOULARDII 250 MG CAPSULE PO SCH (08:05)
[2021-03-16] MEDS: PROPRANOLOL 10 MG TABLET PO SCH ×2 (08:05→20:20)
[2021-03-16] MEDS: THIAMINE 100 MG TABLET PO SCH (08:05)
[2021-03-16] MEDS: LACTULOSE 10 GM /15 ML UDC PO SCH (08:06)
[2021-03-16] MEDS: FUROSEMIDE 20 MG TABLET PO SCH (08:06)
[2021-03-16] MEDS: diltiaZEM CD 120 MG CAPSULE PO SCH (08:06)
[2021-03-16] MEDS: PRENATAL VITAMIN TABLET PO SCH (08:08)
--- NOTE | 2021-03-17 02:28 | PROVIDER PROGRESS NOTE ---
Progress Note March 16, 2021 8 PM No change from yesterday. No new events. We are awaiting placement for this elderly gentleman with substance abuse and end-stage alcohol liver disease. From admission to now he is gone from obtundation, to psychomotor slowing but cooperative and responsive. Temperature is 36.7. Heart rate is 84. Blood pressure 123/52. Respirations are 24 and unlabored. He is 95% on room air. He is able to walk to the bathroom with a gait belt and a walker. Slow, slow shuffling steps. While he is oriented to person place and time, he can be very forgetful. Is able to feed himself when food comes. Lungs have diminished breath sounds at the bases, occasional wheezing. But no tachypnea or increased respiratory effort. PMI is normally placed with a regular rate and rhythm. The abdomen is distended, has intermittent fluid wave. But nontender. Normal bowel sounds. No edema present in his legs. Psychomotor slowing is evident. Assessment/plan this is a nonbillable rounding note on an elderly gentleman who is awaiting placement. No orders written today.
[2021-03-17 06:29] LABS: BASOPHILS % (AUTO) 0.7 %; EOSINOPHILS # (AUTO) 0.3 10^3/uL (0.0-0.7); HCT - HEMATOCRIT 23.7 % (42.0-52.0); HGB - HEMOGLOBIN 7.1 g/dL (14.0-18.0); LYMPHOCYTES # (AUTO) 0.6 10^3/uL (1.5-3.5); LYMPHOCYTES % (AUTO) 14.2 %; MEAN CORPUSCULAR HEMOGLOBIN 24.1 pg (27.0-31.0); MEAN CORPUSCULAR VOLUME 80.3 fL (80.0-94.0); MEAN PLATELET VOLUME 10.9 fL (7.4-11.4); MONOCYTES # (AUTO) 0.7 10^3/uL (0.0-1.0); MONOCYTES % (AUTO) 14.6 %; NEUTROPHILS # (AUTO) 2.8 10^3/uL (1.5-6.6); PLT - PLATELET COUNT 162 10^3/uL (130-450); RED BLOOD COUNT 2.95 10^6/uL (4.70-6.10); RED CELL DISTRIBUTION WIDTH 26.1 % (12.0-15.0); WHITE BLOOD COUNT 4.4 x10^3/uL (4.8-10.8)
[2021-03-17] MEDS: SODIUM CHLORIDE FLUSH 0.9% 10 ML SYRINGE IVP SCH ×4 (06:29→23:23)
[2021-03-17 06:30] LABS: SLIDE REVIEW? Indicated
[2021-03-17] MEDS: PANTOPRAZOLE 40 MG TABLET PO SCH (06:30)
[2021-03-17 06:35] LABS: CALCIUM 8.2 mg/dL (8.5-10.3); CREATININE 0.9 mg/dL (0.6-1.2); POTASSIUM 3.5 mmol/L (3.5-5.0)
[2021-03-17 07:35] LABS: RBC MORPHOLOGY (MULTIPLE) 4+ ANISOCYTOSIS (NORMAL)
[2021-03-17] MEDS: PRENATAL VITAMIN TABLET PO SCH (08:39)
[2021-03-17] MEDS: FERROUS GLUCONATE 324 MG TABLET PO SCH (08:39)
[2021-03-17] MEDS: FUROSEMIDE 20 MG TABLET PO SCH (08:49)
[2021-03-17] MEDS: diltiaZEM CD 120 MG CAPSULE PO SCH (08:49)
[2021-03-17] MEDS: LACTULOSE 10 GM /15 ML UDC PO SCH (08:49)
[2021-03-17] MEDS: TAMSULOSIN 0.4 MG CAPSULE PO SCH (08:50)
[2021-03-17] MEDS: SACCHAROMYCES BOULARDII 250 MG CAPSULE PO SCH (08:50)
[2021-03-17] MEDS: THIAMINE 100 MG TABLET PO SCH (08:50)
[2021-03-17] MEDS: PROPRANOLOL 10 MG TABLET PO SCH ×2 (08:50→21:12)
[2021-03-17] MEDS: SPIRONOLACTONE 25 MG TABLET PO SCH (08:50)
--- NOTE | 2021-03-17 12:06 | PROVIDER PROGRESS NOTE ---
Assessment/Plan - Problem List (1) Acute renal failure Qualifiers: Qualified Code(s): N17.9 - Acute kidney failure, unspecified Assessment/Plan: Patient has remarkably improved, his acute renal failure was resolved, creatinine is 0.9 on today. We will continue to keep hydration for patient, continue clinical laboratory aide (2) Encephalopathy Impression: resolved. This was secondary to hyperammonemia and Hepatic failure. He appears back to his baseline, Continue lactulose. (3) End stage liver disease Impression: stable, Encephalopathy was resolved. This is likely secondary to alcoholic ci rrhosis. His abdomen is distended but soft and there is no currently indication for paracentesis. We have resumed his spironolactone and Lasix. We have also resumed his propanolol. He is pending placement to retirement facility or long-term assisted living.We will continue to see him on a daily basis with nonbillable rounding. (4) SVT (supraventricular tachycardia) Impression: Stable. We are continuing Cardizem. (5) Urinary incontinence with continuous leakage Impression: Stable. He is a chronic indwelling Calix catheter which we have continued. He is also on Flomax, continue Calix care (6) Iron deficiency anemia due to dietary causes Impression: stable. His hemoglobin is stable in the low 7's. He had been started on iron for suspected iron deficiency anemia which we will continue. (7) Staphylococcus aureus bacteremia Impression: Stable, patient has no fever, Hemodynamics is stable. Initial blood cultures grew Staph aureus in just the anaerobic bottle. The other cultures were negative. Repeat blood cultures have been negative to date. He was treated with Zosyn IV for 6 days given elevated white count but antibiotics have since been discontinued. It is likely from Contamination. - Current Meds Current Meds: Current Medications Generic Name Dose Route Start Last Admin Trade Name Freq PRN Reason Stop Dose Admin Diltiazem HCl 120 mg 03/07/21 11:00 03/17/21 08:49 Diltiazem Cd 120 Mg Capsule PO 120 mg DAILY [facility] Administration Ferrous Gluconate 324 mg 03/09/21 09:00 03/17/21 08:39 Ferrous Gluconate 324 Mg Tablet PO 324 mg DAILYWM [facility] Administration Furosemide 20 mg 03/14/21 09:00 03/17/21 08:49 Furosemide 20 Mg Tablet PO 20 mg DAILY [facility] Administration Lactulose 10 gm 03/06/21 09:00 03/17/21 08:49 Lactulose 10 Gm /15 Ml Udc PO 10 gm DAILY [facility] Administration Morphine Sulfate 2 mg 03/03/21 00:20 03/05/21 03:27 Morphine 2 Mg/Ml Carpuject IVP 2 mg Q2HR PRN Administration PAIN Multi-Ingredient Ointment 1 applic 03/02/21 03:51 03/07/21 16:32 Zinc Oxide 20% Oint 30 Gm Tube TOP 1 applic PRN PRN Administration Skin Care Pantoprazole Sodium 40 mg 03/07/21 07:00 03/17/21 06:30 Pantoprazole 40 Mg Tablet PO 40 mg QDAC [facility] Administration Multivit/Folic Acid/Iron 1 tab 03/05/21 12:00 03/17/21 08:39 Vitamin Tablet PO 1 tab DAILYWM [facility] Administration Propranolol HCl 10 mg 03/14/21 09:08 03/17/21 08:50 Propranolol 10 Mg Tablet PO 10 mg BID [facility] Administration Saccharomyces Boulardii 250 mg 03/11/21 09:00 03/17/21 08:50 Saccharomyces Boulardii 250 Mg Capsule PO 250 mg DAILY [facility] Administration Sodium Chloride 10 ml 03/01/21 21:15 03/05/21 06:07 Sodium Chloride Flush 0.9% 10 Ml Syringe IVP 10 ml PRN PRN Administration NEEDED PER PROVIDER ORDERS Sodium Chloride 10 ml 03/02/21 01:00 03/17/21 08:50 Sodium Chloride Flush 0.9% 10 Ml Syringe IVP Not Given 0100,0900,1700 [facility] Spironolactone 25 mg 03/14/21 09:00 03/17/21 08:50 Spironolactone 25 Mg Tablet PO 25 mg DAILY [facility] Administration Tamsulosin HCl 0.4 mg 03/09/21 09:00 03/17/21 08:50 Tamsulosin 0.4 Mg Capsule PO 0.4 mg DAILY [facility] Administration Thiamine HCl 100 mg 03/05/21 12:00 03/17/21 08:50 Thiamine 100 Mg Tablet PO 100 mg DAILY [facility] Administration Zinc Oxide 113 gm 03/01/21 22:30 03/08/21 14:54 Cod Liver Oil/Zinc Oxide 113 Gm Tube TOP 1 applic PRN PRN Administration Skin Care - Lab Result Fish Bone Diagrams: 03/17/21 05:52 03/17/21 05:52 Subjective - Subjective Patient Reports: Feeling Better Objective Vital Signs: Vital Signs - 24 hr 03/16/21 03/16/21 03/17/21 13:47 15:50 01:00 Temperature 36.9 C 36.7 C 37.2 C Heart Rate [ 82 84 86 Brachial] Respiratory 20 24 20 Rate Blood Pressure 116/59 L 123/52 L 120/60 [Right Brachial artery] O2 Saturation 95 95 93 03/17/21 08:00 Temperature 37.1 C Heart Rate [ 86 Brachial] Respiratory 20 Rate Blood Pressure 124/64 [Right Brachial artery] O2 Saturation 100 Oxygen O2 Source [With Activity] Room air O2 Source Room air I&O (Last 24 Hrs): Intake and Output Totals x24h 03/15/21 03/16/21 03/17/21 23:59 23:59 23:59 Intake Total 2009 2621 640 Output Total 2730 7980 675 Balance -720 272 -35 General: Alert, Cooperative, No acute distress HEENT: Atraumatic Neck: Supple Lymphatic: no adenopathy Neuro: Alert, Non Focal Cardiovascular: Regular rate, Normal S1, Normal S2 Respiratory: Chest non-tender, No respiratory distress Abdomen: Normal bowel sounds, Soft Extremities: Normal pulses - Results Results: Laboratory Results WBC 4.4 x10^3/uL (4.8-10.8) L 03/17/21 05:52 RBC 2.95 10^6/uL (4.70-6.10) L 03/17/21 05:52 Hgb 7.1 g/dL (14.0-18.0) L 03/17/21 05:52 Hct 23.7 % (42.0-52.0) L 03/17/21 05:52 MCV 80.3 fL (80.0-94.0) 03/17/21 05:52 MCH 24.1 pg (27.0-31.0) L 03/17/21 05:52 MCHC 30.0 g/dL (32.0-36.0) L 03/17/21 05:52 RDW 26.1 % (12.0-15.0) H 03/17/21 05:52 Plt Count 162 10^3/uL (130-450) 03/17/21 05:52 MPV 10.9 fL (7.4-11.4) 03/17/21 05:52 Reticulocyte % (Auto) 2.31 % (0.5-2.3) H 03/09/21 05:41 Neut # (Auto) 2.8 10^3/uL (1.5-6.6) 03/17/21 05:52 Lymph # (Auto) 0.6 10^3/uL (1.5-3.5) L 03/17/21 05:52 Patrick # (Auto) 0.7 10^3/uL (0.0-1.0) 03/17/21 05:52 Eos # (Auto) 0.3 10^3/uL (0.0-0.7) 03/17/21 05:52 Baso # (Auto) 0.0 10^3/uL (0.0-0.1) 03/17/21 05:52 Absolute Nucleated RBC 0.00 x10^3/uL 03/17/21 05:52 Total Counted 100 03/08/21 04:09 Band Neuts % (Manual) Not Reportable 03/09/21 05:41 Abnorm Lymph % (Manual) Not Reportable 03/09/21 05:41 Nucleated RBC % 0.0 /100WBC 03/17/21 05:52 Neutrophils # (Manual) Not Reportable 03/09/21 05:41 Lymphocytes # (Manual) Not Reportable 03/09/21 05:41 Monocytes # (Manual) Not Reportable 03/09/21 05:41 Eosinophils # (Manual) Not Reportable 03/09/21 05:41 Basophils # (Manual) Not Reportable 03/09/21 05:41 Differential Comment MANUAL=AUTO DIFF 03/09/21 05:41 Manual Slide Review Indicated 03/17/21 05:52 WBC Morphology NORMAL APPEARANCE (NORMAL) 03/14/21 05:05 Platelet Estimate DECREASED (<130,000) (NORMAL) 03/15/21 04:49 Platelet Morphology NORMAL APPEARANCE (NORMAL) 03/14/21 05:05 RBC Morph Micro Appear 4+ ANISOCYTOSIS (NORMAL) 03/17/21 05:52 Absolute Retic 0.073 10^6/uL (0.020-0.110) 03/09/21 05:41 PT 16.3 secs (9.9-12.6) H 02/28/21 12:34 INR 1.5 (0.8-1.2) H 02/28/21 12:34 APTT 30.2 secs (24.9-33.3) 02/28/21 12:34 Bld Gas Analysis Time 2320 02/28/21 23:15 Sample Site RIGHT RADIAL 02/28/21 23:15 ABG pH 7.41 (7.35-7.45) 02/28/21 23:15 ABG pCO2 20 mmHg (34-45) L* 02/28/21 23:15 ABG pO2 89 mmHg (80-100) 02/28/21 23:15 ABG HCO3 12.5 mmol/L (22.0-26.0) L 02/28/21 23:15 ABG Total CO2 13.1 MMOL/L (21.0-29.0) L 02/28/21 23:15 ABG O2 Saturation 96 % (94-98) 02/28/21 23:15 ABG Base Excess -10.5 mmol/L (-2.0-3.0) L 02/28/21 23:15 Thanh Test POSITIVE 02/28/21 23:15 VBG pH 7.396 (7.31-7.41) 03/02/21 16:45 VBG pCO2 19.0 mmHg (41-51) L 02/28/21 22:02 VBG pO2 75.4 mmHg (25-47) H 02/28/21 22:02 VBG HCO3 11.7 mmol/L (23-28) L 02/28/21 22:02 VBG Total CO2 12.3 mmol/L (24-29) L 02/28/21 22:02 VBG O2 Saturation 93.4 % (60-80) H 02/28/21 22:02 VBG Base Excess -11.0 mmol/L (-2 - +2) L 02/28/21 22:02 Ionized Calcium 1.05 mmol/L (1.15-1.33) L 03/02/21 16:45 O2 Delivery Device NON REBREATHER MASK 02/28/21 23:15 FiO2 21.00 02/28/21 23:15 Sodium 134 mmol/L (135-145) L 03/17/21 05:52 Potassium 3.5 mmol/L (3.5-5.0) 03/17/21 05:52 Chloride 101 mmol/L (101-111) 03/17/21 05:52 Carbon Dioxide 27 mmol/L (21-32) 03/17/21 05:52 Anion Gap 6.0 (6-13) 03/17/21 05:52 BUN 19 mg/dL (6-20) 03/17/21 05:52 Creatinine 0.9 mg/dL (0.6-1.2) 03/17/21 05:52 Estimated GFR (MDRD) 83 (>89) L 03/17/21 05:52 Glucose 103 mg/dL (70-100) H 03/17/21 05:52 POC Whole Bld Glucose 134 mg/dL (70 - 100) H 02/28/21 12:27 Lactic Acid 2.5 mmol/L (0.5-2.2) H 02/28/21 21:44 Calcium 8.2 mg/dL (8.5-10.3) L 03/17/21 05:52 Phosphorus 3.4 mg/dL (2.5-4.6) 03/09/21 05:41 Magnesium 1.9 mg/dL (1.7-2.8) 03/08/21 04:09 Iron 18 ug/dL (45-182) L 03/09/21 05:41 TIBC 193 ug/dL (250-450) L 03/09/21 05:41 % Saturation 9 % (20-50) L 03/09/21 05:41 Transferrin 138 mg/dL (180-329) L 03/09/21 05:41 Ferritin 110.3 ng/mL (23.9-336.2) 03/09/21 05:41 Total Bilirubin 2.7 mg/dL (0.2-1.0) H 03/05/21 04:48 AST 19 IU/L (10-42) 03/05/21 04:48 ALT 15 IU/L (10-60) 03/05/21 04:48 Alkaline Phosphatase 100 IU/L (42-121) 03/05/21 04:48 Ammonia 22.0 umol/L (7-35) 03/07/21 11:55 Lactate Dehydrogenase 135 IU/L (91-225) 03/09/21 05:41 Total Creatine Kinase 36 IU/L (22-269) 02/28/21 12:34 Troponin I High Sens 17.5 ng/L (2.3-19.7) 03/03/21 16:42 B-Natriuretic Peptide 313 pg/mL (5-100) H 03/01/21 02:39 Total Protein 6.0 g/dL (6.7-8.2) L 03/05/21 04:48 Albumin 2.1 g/dL (3.2-5.5) L 03/05/21 04:48 Globulin 3.9 g/dL (2.1-4.2) 03/05/21 04:48 Albumin/Globulin Ratio 0.5 (1.0-2.2) L 03/05/21 04:48 Lipase 251 U/L (22-51) H 02/28/21 21:44 Vitamin B12 1216 pg/mL (180-914) H 03/09/21 05:41 Folate 32.00 ng/mL (5.90 - >24.8) 03/09/21 05:41 TSH 2.35 uIU/mL (0.34-5.60) 02/28/21 12:34 Free T4 0.69 ng/dL (0.58-1.64) 02/28/21 12:34 Urine Color DARK YELLOW 02/28/21 13:03 Urine Clarity CLOUDY (CLEAR) 02/28/21 13:03 Urine pH 6.0 PH (5.0-7.5) 02/28/21 13:03 Ur Specific Beatrice 1.015 (1.002-1.030) 02/28/21 13:03 Urine Protein NEGATIVE mg/dL (NEGATIVE) 02/28/21 13:03 Urine Glucose (UA) NEGATIVE mg/dL (NEGATIVE) 02/28/21 13:03 Urine Ketones NEGATIVE mg/dL (NEGATIVE) 02/28/21 13:03 Urine Occult Blood LARGE (NEGATIVE) H 02/28/21 13:03 Urine Nitrite NEGATIVE (NEGATIVE) 02/28/21 13:03 Urine Bilirubin NEGATIVE (NEGATIVE) 02/28/21 13:03 Urine Urobilinogen 1 (NORMAL) E.U./dL (NORMAL) 02/28/21 13:03 Ur Leukocyte Esterase MODERATE (NEGATIVE) H 02/28/21 13:03 Urine RBC 6-10 /HPF (0-5) H 02/28/21 13:03 Urine WBC >25 /HPF (0-3) H 02/28/21 13:03 Ur Squamous Epith Cells NONE SEEN (<= Few) 02/28/21 13:03 Urine Bacteria Few /HPF (None Seen) 02/28/21 13:03 Ur Microscopic Review INDICATED 02/28/21 13:03 Urine Culture Comments INDICATED 02/28/21 13:03 Nasal Adenovirus (PCR) NOT DETECTED 02/28/21 14:05 Nasal B. parapertussis DNA (PCR) NOT DETECTED 02/28/21 14:05 Nasal Coronavir 229E PCR NOT DETECTED 02/28/21 14:05 Nasal Coronavir HKU1 PCR NOT DETECTED 02/28/21 14:05 Nasal Coronavir NL63 PCR NOT DETECTED 02/28/21 14:05 Nasal Coronavir OC43 PCR NOT DETECTED 02/28/21 14:05 Nasal Enterovir/Rhinovir PCR NOT DETECTED 02/28/21 14:05 Nasal Influenza B PCR NOT DETECTED 02/28/21 14:05 Nasal Influenza A PCR NOT DETECTED 02/28/21 14:05 Nasal Parainfluen 1 PCR NOT DETECTED 02/28/21 14:05 Nasal Parainfluen 2 PCR NOT DETECTED 02/28/21 14:05 Nasal Parainfluen 3 PCR NOT DETECTED 02/28/21 14:05 Nasal Parainfluen 4 PCR NOT DETECTED 02/28/21 14:05 Nasal RSV (PCR) NOT DETECTED 02/28/21 14:05 Nasal Screen MRSA (PCR) NEGATIVE (NEGATIVE) 03/01/21 22:00 Nasal B.pertussis DNA PCR NOT DETECTED 02/28/21 14:05 Nasal C.pneumoniae (PCR) NOT DETECTED 02/28/21 14:05 Gregory Human Metapneumo PCR NOT DETECTED 02/28/21 14:05 Nasal M.pneumoniae (PCR) NOT DETECTED 02/28/21 14:05 Nasal SARS-CoV-2 (PCR) NOT DETECTED 02/28/21 14:05 Stl C. diff Tox B Gene NEGATIVE (NEGATIVE) 03/03/21 00:30 Salicylates < 6.0 mg/dL 02/28/21 12:34 Urine Opiates Screen NEGATIVE (NEGATIVE) 02/28/21 13:03 Ur Oxycodone Screen NEGATIVE (NEGATIVE) 02/28/21 13:03 Urine Methadone Screen NEGATIVE (NEGATIVE) 02/28/21 13:03 Ur Propoxyphene Screen NEGATIVE (NEGATIVE) 02/28/21 13:03 Acetaminophen < 10 ug/mL (10-30) L 02/28/21 12:34 Ur Barbiturates Screen NEGATIVE (NEGATIVE) 02/28/21 13:03 Ur Tricyclics Screen NEGATIVE (NEGATIVE) 02/28/21 13:03 Ur Phencyclidine Scrn NEGATIVE (NEGATIVE) 02/28/21 13:03 Ur Amphetamine Screen NEGATIVE (NEGATIVE) 02/28/21 13:03 U Methamphetamines Scrn NEGATIVE (NEGATIVE) 02/28/21 13:03 U Benzodiazepines Scrn NEGATIVE (NEGATIVE) 02/28/21 13:03 Urine Cocaine Screen NEGATIVE (NEGATIVE) 02/28/21 13:03 U Cannabinoids Screen NEGATIVE (NEGATIVE) 02/28/21 13:03 Ethyl Alcohol < 5.0 mg/dL 02/28/21 12:34 - Procedures Procedures: Procedures DRAINAGE OF PERITONEAL CAVITY, PERCUTANEOUS APPROACH, DIAGN (12/19/15) TRANSFUSE NONAUT RED BLOOD CELLS IN PERIPH VEIN, PERC (12/19/15) Sepsis Event Note (H) - Evaluation Possible source of Sepsis: positive: Genitourinary, Skin/soft tissue ABX Reporting Has patient been on IV antibiotics over the past 48 hours?: No Current Medications - Current Medications Current Medications: Active Medications Diltiazem HCl (Diltiazem Cd 120 Mg Capsule) 120 mg PO DAILY [facility] Last Admin: 03/17/21 08:49 Dose: 120 mg Documented by: Ferrous Gluconate (Ferrous Gluconate 324 Mg Tablet) 324 mg PO DAILYWM [facility] Last Admin: 03/17/21 08:39 Dose: 324 mg Documented by: Furosemide (Furosemide 20 Mg Tablet) 20 mg PO DAILY [facility] Last Admin: 03/17/21 08:49 Dose: 20 mg Documented by: Lactulose (Lactulose 10 Gm /15 Ml Udc) 10 gm PO DAILY [facility] Last Admin: 03/17/21 08:49 Dose: 10 gm Documented by: Morphine Sulfate (Morphine 2 Mg/Ml Carpuject) 2 mg IVP Q2HR PRN PRN Reason: PAIN Last Admin: 03/05/21 03:27 Dose: 2 mg Documented by: Multi-Ingredient Ointment (Zinc Oxide 20% Oint 30 Gm Tube) 1 applic TOP PRN PRN PRN Reason: Skin Care Last Admin: 03/07/21 16:32 Dose: 1 applic Documented by: Ondansetron HCl (Ondansetron 4 Mg/2 Ml Vial) 4 mg IVP Q6HR PRN PRN Reason: Nausea / Vomiting Pantoprazole Sodium (Pantoprazole 40 Mg Tablet) 40 mg PO QDAC [facility] Last Admin: 03/17/21 06:30 Dose: 40 mg Documented by: Multivit/Folic Acid/Iron ( Vitamin Tablet) 1 tab PO DAILYWM [facility] Last Admin: 03/17/21 08:39 Dose: 1 tab Documented by: Propranolol HCl (Propranolol 10 Mg Tablet) 10 mg PO BID [facility] Last Admin: 03/17/21 08:50 Dose: 10 mg Documented by: Saccharomyces Boulardii (Saccharomyces Boulardii 250 Mg Capsule) 250 mg PO DAILY [facility] Last Admin: 03/17/21 08:50 Dose: 250 mg Documented by: Sodium Chloride (Sodium Chloride Flush 0.9% 10 Ml Syringe) 10 ml IVP PRN PRN PRN Reason: NEEDED PER PROVIDER ORDERS Last Admin: 03/05/21 06:07 Dose: 10 ml Documented by: Sodium Chloride (Sodium Chloride Flush 0.9% 10 Ml Syringe) 10 ml IVP 0100,0900,1700 [facility] Last Admin: 03/17/21 08:50 Dose: Not Given Documented by: Spironolactone (Spironolactone 25 Mg Tablet) 25 mg PO DAILY [facility] Last Admin: 03/17/21 08:50 Dose: 25 mg Documented by: Tamsulosin HCl (Tamsulosin 0.4 Mg Capsule) 0.4 mg PO DAILY [facility] Last Admin: 03/17/21 08:50 Dose: 0.4 mg Documented by: Thiamine HCl (Thiamine 100 Mg Tablet) 100 mg PO DAILY [facility] Last Admin: 03/17/21 08:50 Dose: 100 mg Documented by: Zinc Oxide (Cod Liver Oil/Zinc Oxide 113 Gm Tube) 113 gm TOP PRN PRN PRN Reason: Skin Care Last Admin: 03/08/21 14:54 Dose: 1 applic Documented by: Furosemide [Lasix] 20 mg PO DAILY 07/31/20 Propranolol [Inderal] 10 mg PO BID 07/31/20 Spironolactone [Aldactone] 25 mg PO DAILY 07/31/20
[2021-03-18] MEDS: PANTOPRAZOLE 40 MG TABLET PO SCH (06:43)
[2021-03-18 08:35] LABS: BASOPHILS % (AUTO) 0.6 %; EOSINOPHILS # (AUTO) 0.3 10^3/uL (0.0-0.7); EOSINOPHILS % (AUTO) 5.7 %; HCT - HEMATOCRIT 23.6 % (42.0-52.0); HGB - HEMOGLOBIN 7.3 g/dL (14.0-18.0); LYMPHOCYTES # (AUTO) 0.5 10^3/uL (1.5-3.5); MEAN CORPUSCULAR HEMOGLOBIN 25.4 pg (27.0-31.0); MEAN CORPUSCULAR HGB CONC 30.9 g/dL (32.0-36.0); MEAN CORPUSCULAR VOLUME 82.2 fL (80.0-94.0); MEAN PLATELET VOLUME 11.4 fL (7.4-11.4); MONOCYTES # (AUTO) 0.7 10^3/uL (0.0-1.0); MONOCYTES % (AUTO) 14.9 %; NEUTROPHILS # (AUTO) 3.3 10^3/uL (1.5-6.6); NEUTROPHILS % (AUTO) 67.4 %; PLT - PLATELET COUNT 164 10^3/uL (130-450); RED BLOOD COUNT 2.87 10^6/uL (4.70-6.10); RED CELL DISTRIBUTION WIDTH 25.8 % (12.0-15.0); WHITE BLOOD COUNT 4.9 x10^3/uL (4.8-10.8)
[2021-03-18] MEDS: FUROSEMIDE 20 MG TABLET PO SCH (08:45)
[2021-03-18] MEDS: LACTULOSE 10 GM /15 ML UDC PO SCH (08:45)
[2021-03-18] MEDS: FERROUS GLUCONATE 324 MG TABLET PO SCH (08:46)
[2021-03-18] MEDS: THIAMINE 100 MG TABLET PO SCH (08:46)
[2021-03-18] MEDS: diltiaZEM CD 120 MG CAPSULE PO SCH (08:46)
[2021-03-18] MEDS: PROPRANOLOL 10 MG TABLET PO SCH ×2 (08:47→21:07)
[2021-03-18] MEDS: SPIRONOLACTONE 25 MG TABLET PO SCH (08:47)
[2021-03-18] MEDS: SACCHAROMYCES BOULARDII 250 MG CAPSULE PO SCH (08:47)
[2021-03-18] MEDS: PRENATAL VITAMIN TABLET PO SCH (08:47)
[2021-03-18] MEDS: TAMSULOSIN 0.4 MG CAPSULE PO SCH (08:47)
[2021-03-18] MEDS: SODIUM CHLORIDE FLUSH 0.9% 10 ML SYRINGE IVP SCH ×2 (08:48→16:04)
[2021-03-18 08:49] LABS: CALCIUM 8.6 mg/dL (8.5-10.3); POTASSIUM 3.6 mmol/L (3.5-5.0)
--- NOTE | 2021-03-18 12:05 | PROVIDER PROGRESS NOTE ---
Assessment/Plan - Problem List (1) Acute renal failure Qualifiers: Qualified Code(s): N17.9 - Acute kidney failure, unspecified Assessment/Plan: resolved. Lab test show his creatinine is 1.0. continue keep pt in hydration appropriately, continue lab monitor. clinically pt is stable, pt has no complaints, pt ate 100% his diet. consult with social work for disposition planning. - Current Meds Current Meds: Current Medications Generic Name Dose Route Start Last Admin Trade Name Frela PRN Reason Stop Dose Admin Diltiazem HCl 120 mg 03/07/21 11:00 03/18/21 08:46 Diltiazem Cd 120 Mg Capsule PO 120 mg DAILY [facility] Administration Ferrous Gluconate 324 mg 03/09/21 09:00 03/18/21 08:46 Ferrous Gluconate 324 Mg Tablet PO 324 mg DAILYWM [facility] Administration Furosemide 20 mg 03/14/21 09:00 03/18/21 08:45 Furosemide 20 Mg Tablet PO 20 mg DAILY [facility] Administration Lactulose 10 gm 03/06/21 09:00 03/18/21 08:45 Lactulose 10 Gm /15 Ml Udc PO 10 gm DAILY [facility] Administration Morphine Sulfate 2 mg 03/03/21 00:20 03/05/21 03:27 Morphine 2 Mg/Ml Carpuject IVP 2 mg Q2HR PRN Administration PAIN Multi-Ingredient Ointment 1 applic 03/02/21 03:51 03/07/21 16:32 Zinc Oxide 20% Oint 30 Gm Tube TOP 1 applic PRN PRN Administration Skin Care Pantoprazole Sodium 40 mg 03/07/21 07:00 03/18/21 06:43 Pantoprazole 40 Mg Tablet PO 40 mg QDAC [facility] Administration Multivit/Folic Acid/Iron 1 tab 03/05/21 12:00 03/18/21 08:47 Vitamin Tablet PO 1 tab DAILYWM [facility] Administration Propranolol HCl 10 mg 03/14/21 09:08 03/18/21 08:47 Propranolol 10 Mg Tablet PO 10 mg BID [facility] Administration Saccharomyces Boulardii 250 mg 03/11/21 09:00 03/18/21 08:47 Saccharomyces Boulardii 250 Mg Capsule PO 250 mg DAILY [facility] Administration Sodium Chloride 10 ml 03/01/21 21:15 03/05/21 06:07 Sodium Chloride Flush 0.9% 10 Ml Syringe IVP 10 ml PRN PRN Administration NEEDED PER PROVIDER ORDERS Sodium Chloride 10 ml 03/02/21 01:00 03/18/21 08:48 Sodium Chloride Flush 0.9% 10 Ml Syringe IVP Not Given 0100,0900,1700 [facility] Spironolactone 25 mg 03/14/21 09:00 03/18/21 08:47 Spironolactone 25 Mg Tablet PO 25 mg DAILY [facility] Administration Tamsulosin HCl 0.4 mg 03/09/21 09:00 03/18/21 08:47 Tamsulosin 0.4 Mg Capsule PO 0.4 mg DAILY [facility] Administration Thiamine HCl 100 mg 03/05/21 12:00 03/18/21 08:46 Thiamine 100 Mg Tablet PO 100 mg DAILY [facility] Administration Zinc Oxide 113 gm 03/01/21 22:30 03/08/21 14:54 Cod Liver Oil/Zinc Oxide 113 Gm Tube TOP 1 applic PRN PRN Administration Skin Care - Lab Result Fish Bone Diagrams: 03/18/21 08:05 03/18/21 08:05 - Additional Planning My Orders: My Active Orders 03/19/21 05:00 BMP - BASIC METABOLIC PANEL [CHEM] DAILYLAB CBC - COMP BLD CT W/AUTO DIFF [HEME] DAILYLAB 03/20/21 05:00 BMP - BASIC METABOLIC PANEL [CHEM] DAILYLAB CBC - COMP BLD CT W/AUTO DIFF [HEME] DAILYLAB 03/21/21 05:00 BMP - BASIC METABOLIC PANEL [CHEM] DAILYLAB CBC - COMP BLD CT W/AUTO DIFF [HEME] DAILYLAB 03/22/21 05:00 BMP - BASIC METABOLIC PANEL [CHEM] DAILYLAB CBC - COMP BLD CT W/AUTO DIFF [HEME] DAILYLAB 03/23/21 05:00 BMP - BASIC METABOLIC PANEL [CHEM] DAILYLAB CBC - COMP BLD CT W/AUTO DIFF [HEME] DAILYLAB 03/24/21 05:00 BMP - BASIC METABOLIC PANEL [CHEM] DAILYLAB CBC - COMP BLD CT W/AUTO DIFF [HEME] DAILYLAB Subjective - Subjective Patient Reports: Feeling Better, Resting Comfortably, No Complaints Objective Vital Signs: Vital Signs - 24 hr 03/17/21 03/18/21 03/18/21 15:05 00:00 08:00 Temperature 37.5 C 36.7 C 37.2 C Heart Rate [ 91 88 95 Brachial] Respiratory 22 18 22 Rate Blood Pressure 114/52 L 117/52 L 138/99 H [Right Brachial artery] O2 Saturation 95 92 93 Oxygen O2 Source [With Activity] Room air O2 Source Room air I&O (Last 24 Hrs): Intake and Output Totals x24h 03/16/21 03/17/21 03/18/21 23:59 23:59 23:59 Intake Total 2622 880 440 Output Total 2350 7875 1300 Balance 272 -1495 -860 General: Alert, Oriented x3, Cooperative, No acute distress HEENT: Atraumatic Neck: Supple Lymphatic: no adenopathy Neuro: Alert, Non Focal, Oriented Times 3 Cardiovascular: Regular rate, Normal S1, Normal S2 Respiratory: Chest non-tender, No respiratory distress Abdomen: Normal bowel sounds Extremities: Normal pulses - Results Results: Laboratory Results WBC 4.9 x10^3/uL (4.8-10.8) 03/18/21 08:05 RBC 2.87 10^6/uL (4.70-6.10) L 03/18/21 08:05 Hgb 7.3 g/dL (14.0-18.0) L 03/18/21 08:05 Hct 23.6 % (42.0-52.0) L 03/18/21 08:05 MCV 82.2 fL (80.0-94.0) 03/18/21 08:05 MCH 25.4 pg (27.0-31.0) L 03/18/21 08:05 MCHC 30.9 g/dL (32.0-36.0) L 03/18/21 08:05 RDW 25.8 % (12.0-15.0) H 03/18/21 08:05 Plt Count 164 10^3/uL (130-450) 03/18/21 08:05 MPV 11.4 fL (7.4-11.4) 03/18/21 08:05 Reticulocyte % (Auto) 2.31 % (0.5-2.3) H 03/09/21 05:41 Neut # (Auto) 3.3 10^3/uL (1.5-6.6) 03/18/21 08:05 Lymph # (Auto) 0.5 10^3/uL (1.5-3.5) L 03/18/21 08:05 [place] # (Auto) 0.7 10^3/uL (0.0-1.0) 03/18/21 08:05 Eos # (Auto) 0.3 10^3/uL (0.0-0.7) 03/18/21 08:05 Baso # (Auto) 0.0 10^3/uL (0.0-0.1) 03/18/21 08:05 Absolute Nucleated RBC 0.00 x10^3/uL 03/18/21 08:05 Total Counted 100 03/08/21 04:09 Band Neuts % (Manual) Not Reportable 03/09/21 05:41 Abnorm Lymph % (Manual) Not Reportable 03/09/21 05:41 Nucleated RBC % 0.0 /100WBC 03/18/21 08:05 Neutrophils # (Manual) Not Reportable 03/09/21 05:41 Lymphocytes # (Manual) Not Reportable 03/09/21 05:41 Monocytes # (Manual) Not Reportable 03/09/21 05:41 Eosinophils # (Manual) Not Reportable 03/09/21 05:41 Basophils # (Manual) Not Reportable 03/09/21 05:41 Differential Comment MANUAL=AUTO DIFF 03/09/21 05:41 Manual Slide Review Indicated 03/17/21 05:52 WBC Morphology NORMAL APPEARANCE (NORMAL) 03/14/21 05:05 Platelet Estimate DECREASED (<130,000) (NORMAL) 03/15/21 04:49 Platelet Morphology NORMAL APPEARANCE (NORMAL) 03/14/21 05:05 RBC Morph Micro Appear 4+ ANISOCYTOSIS (NORMAL) 03/17/21 05:52 Absolute Retic 0.073 10^6/uL (0.020-0.110) 03/09/21 05:41 PT 16.3 secs (9.9-12.6) H 02/28/21 12:34 INR 1.5 (0.8-1.2) H 02/28/21 12:34 APTT 30.2 secs (24.9-33.3) 02/28/21 12:34 Bld Gas Analysis Time 2320 02/28/21 23:15 Sample Site RIGHT RADIAL 02/28/21 23:15 ABG pH 7.41 (7.35-7.45) 02/28/21 23:15 ABG pCO2 20 mmHg (34-45) L* 02/28/21 23:15 ABG pO2 89 mmHg (80-100) 02/28/21 23:15 ABG HCO3 12.5 mmol/L (22.0-26.0) L 02/28/21 23:15 ABG Total CO2 13.1 MMOL/L (21.0-29.0) L 02/28/21 23:15 ABG O2 Saturation 96 % (94-98) 02/28/21 23:15 ABG Base Excess -10.5 mmol/L (-2.0-3.0) L 02/28/21 23:15 Thanh Test POSITIVE 02/28/21 23:15 VBG pH 7.396 (7.31-7.41) 03/02/21 16:45 VBG pCO2 19.0 mmHg (41-51) L 02/28/21 22:02 VBG pO2 75.4 mmHg (25-47) H 02/28/21 22:02 VBG HCO3 11.7 mmol/L (23-28) L 02/28/21 22:02 VBG Total CO2 12.3 mmol/L (24-29) L 02/28/21 22:02 VBG O2 Saturation 93.4 % (60-80) H 02/28/21 22:02 VBG Base Excess -11.0 mmol/L (-2 - +2) L 02/28/21 22:02 Ionized Calcium 1.05 mmol/L (1.15-1.33) L 03/02/21 16:45 O2 Delivery Device NON REBREATHER MASK 02/28/21 23:15 FiO2 21.00 02/28/21 23:15 Sodium 138 mmol/L (135-145) 03/18/21 08:05 Potassium 3.6 mmol/L (3.5-5.0) 03/18/21 08:05 Chloride 102 mmol/L (101-111) 03/18/21 08:05 Carbon Dioxide 27 mmol/L (21-32) 03/18/21 08:05 Anion Gap 9.0 (6-13) 03/18/21 08:05 BUN 18 mg/dL (6-20) 03/18/21 08:05 Creatinine 1.0 mg/dL (0.6-1.2) 03/18/21 08:05 Estimated GFR (MDRD) 73 (>89) L 03/18/21 08:05 Glucose 99 mg/dL (70-100) 03/18/21 08:05 POC Whole Bld Glucose 134 mg/dL (70 - 100) H 02/28/21 12:27 Lactic Acid 2.5 mmol/L (0.5-2.2) H 02/28/21 21:44 Calcium 8.6 mg/dL (8.5-10.3) 03/18/21 08:05 Phosphorus 3.4 mg/dL (2.5-4.6) 03/09/21 05:41 Magnesium 1.9 mg/dL (1.7-2.8) 03/08/21 04:09 Iron 18 ug/dL (45-182) L 03/09/21 05:41 TIBC 193 ug/dL (250-450) L 03/09/21 05:41 % Saturation 9 % (20-50) L 03/09/21 05:41 Transferrin 138 mg/dL (180-329) L 03/09/21 05:41 Ferritin 110.3 ng/mL (23.9-336.2) 03/09/21 05:41 Total Bilirubin 2.7 mg/dL (0.2-1.0) H 03/05/21 04:48 AST 19 IU/L (10-42) 03/05/21 04:48 ALT 15 IU/L (10-60) 03/05/21 04:48 Alkaline Phosphatase 100 IU/L (42-121) 03/05/21 04:48 Ammonia 22.0 umol/L (7-35) 03/07/21 11:55 Lactate Dehydrogenase 135 IU/L (91-225) 03/09/21 05:41 Total Creatine Kinase 36 IU/L (22-269) 02/28/21 12:34 Troponin I High Sens 17.5 ng/L (2.3-19.7) 03/03/21 16:42 B-Natriuretic Peptide 313 pg/mL (5-100) H 03/01/21 02:39 Total Protein 6.0 g/dL (6.7-8.2) L 03/05/21 04:48 Albumin 2.1 g/dL (3.2-5.5) L 03/05/21 04:48 Globulin 3.9 g/dL (2.1-4.2) 03/05/21 04:48 Albumin/Globulin Ratio 0.5 (1.0-2.2) L 03/05/21 04:48 Lipase 251 U/L (22-51) H 02/28/21 21:44 Vitamin B12 1216 pg/mL (180-914) H 03/09/21 05:41 Folate 32.00 ng/mL (5.90 - >24.8) 03/09/21 05:41 TSH 2.35 uIU/mL (0.34-5.60) 02/28/21 12:34 Free T4 0.69 ng/dL (0.58-1.64) 02/28/21 12:34 Urine Color DARK YELLOW 02/28/21 13:03 Urine Clarity CLOUDY (CLEAR) 02/28/21 13:03 Urine pH 6.0 PH (5.0-7.5) 02/28/21 13:03 Ur Specific [place] 1.015 (1.002-1.030) 02/28/21 13:03 Urine Protein NEGATIVE mg/dL (NEGATIVE) 02/28/21 13:03 Urine Glucose (UA) NEGATIVE mg/dL (NEGATIVE) 02/28/21 13:03 Urine Ketones NEGATIVE mg/dL (NEGATIVE) 02/28/21 13:03 Urine Occult Blood LARGE (NEGATIVE) H 02/28/21 13:03 Urine Nitrite NEGATIVE (NEGATIVE) 02/28/21 13:03 Urine Bilirubin NEGATIVE (NEGATIVE) 02/28/21 13:03 Urine Urobilinogen 1 (NORMAL) E.U./dL (NORMAL) 02/28/21 13:03 Ur Leukocyte Esterase MODERATE (NEGATIVE) H 02/28/21 13:03 Urine RBC 6-10 /HPF (0-5) H 02/28/21 13:03 Urine WBC >25 /HPF (0-3) H 02/28/21 13:03 Ur Squamous Epith Cells NONE SEEN (<= Few) 02/28/21 13:03 Urine Bacteria Few /HPF (None Seen) 02/28/21 13:03 Ur Microscopic Review INDICATED 02/28/21 13:03 Urine Culture Comments INDICATED 02/28/21 13:03 Nasal Adenovirus (PCR) NOT DETECTED 02/28/21 14:05 Nasal B. parapertussis DNA (PCR) NOT DETECTED 02/28/21 14:05 Nasal Coronavir 229E PCR NOT DETECTED 02/28/21 14:05 Nasal Coronavir HKU1 PCR NOT DETECTED 02/28/21 14:05 Nasal Coronavir NL63 PCR NOT DETECTED 02/28/21 14:05 Nasal Coronavir OC43 PCR NOT DETECTED 02/28/21 14:05 Nasal Enterovir/Rhinovir PCR NOT DETECTED 02/28/21 14:05 Nasal Influenza B PCR NOT DETECTED 02/28/21 14:05 Nasal Influenza A PCR NOT DETECTED 02/28/21 14:05 Nasal Parainfluen 1 PCR NOT DETECTED 02/28/21 14:05 Nasal Parainfluen 2 PCR NOT DETECTED 02/28/21 14:05 Nasal Parainfluen 3 PCR NOT DETECTED 02/28/21 14:05 Nasal Parainfluen 4 PCR NOT DETECTED 02/28/21 14:05 Nasal RSV (PCR) NOT DETECTED 02/28/21 14:05 Nasal Screen MRSA (PCR) NEGATIVE (NEGATIVE) 03/01/21 22:00 Nasal B.pertussis DNA PCR NOT DETECTED 02/28/21 14:05 Nasal C.pneumoniae (PCR) NOT DETECTED 02/28/21 14:05 Gregory Human Metapneumo PCR NOT DETECTED 02/28/21 14:05 Nasal M.pneumoniae (PCR) NOT DETECTED 02/28/21 14:05 Nasal SARS-CoV-2 (PCR) NOT DETECTED 02/28/21 14:05 Stl C. diff Tox B Gene NEGATIVE (NEGATIVE) 03/03/21 00:30 Salicylates < 6.0 mg/dL 02/28/21 12:34 Urine Opiates Screen NEGATIVE (NEGATIVE) 02/28/21 13:03 Ur Oxycodone Screen NEGATIVE (NEGATIVE) 02/28/21 13:03 Urine Methadone Screen NEGATIVE (NEGATIVE) 02/28/21 13:03 Ur Propoxyphene Screen NEGATIVE (NEGATIVE) 02/28/21 13:03 Acetaminophen < 10 ug/mL (10-30) L 02/28/21 12:34 Ur Barbiturates Screen NEGATIVE (NEGATIVE) 02/28/21 13:03 Ur Tricyclics Screen NEGATIVE (NEGATIVE) 02/28/21 13:03 Ur Phencyclidine Scrn NEGATIVE (NEGATIVE) 02/28/21 13:03 Ur Amphetamine Screen NEGATIVE (NEGATIVE) 02/28/21 13:03 U Methamphetamines Scrn NEGATIVE (NEGATIVE) 02/28/21 13:03 U Benzodiazepines Scrn NEGATIVE (NEGATIVE) 02/28/21 13:03 Urine Cocaine Screen NEGATIVE (NEGATIVE) 02/28/21 13:03 U Cannabinoids Screen NEGATIVE (NEGATIVE) 02/28/21 13:03 Ethyl Alcohol < 5.0 mg/dL 02/28/21 12:34 - Procedures Procedures: Procedures DRAINAGE OF PERITONEAL CAVITY, PERCUTANEOUS APPROACH, DIAGN (12/19/15) TRANSFUSE NONAUT RED BLOOD CELLS IN PERIPH VEIN, PERC (12/19/15) Sepsis Event Note (H) - Evaluation Possible source of Sepsis: positive: Genitourinary, Skin/soft tissue ABX Reporting Has patient been on IV antibiotics over the past 48 hours?: No Current Medications - Current Medications Current Medications: Active Medications Diltiazem HCl (Diltiazem Cd 120 Mg Capsule) 120 mg PO DAILY [facility] Last Admin: 03/18/21 08:46 Dose: 120 mg Documented by: Ferrous Gluconate (Ferrous Gluconate 324 Mg Tablet) 324 mg PO DAILYWM [facility] Last Admin: 03/18/21 08:46 Dose: 324 mg Documented by: Furosemide (Furosemide 20 Mg Tablet) 20 mg PO DAILY [facility] Last Admin: 03/18/21 08:45 Dose: 20 mg Documented by: Lactulose (Lactulose 10 Gm /15 Ml Udc) 10 gm PO DAILY [facility] Last Admin: 03/18/21 08:45 Dose: 10 gm Documented by: Morphine Sulfate (Morphine 2 Mg/Ml Carpuject) 2 mg IVP Q2HR PRN PRN Reason: PAIN Last Admin: 03/05/21 03:27 Dose: 2 mg Documented by: Multi-Ingredient Ointment (Zinc Oxide 20% Oint 30 Gm Tube) 1 applic TOP PRN PRN PRN Reason: Skin Care Last Admin: 03/07/21 16:32 Dose: 1 applic Documented by: Ondansetron HCl (Ondansetron 4 Mg/2 Ml Vial) 4 mg IVP Q6HR PRN PRN Reason: Nausea / Vomiting Pantoprazole Sodium (Pantoprazole 40 Mg Tablet) 40 mg PO QDAC [facility] Last Admin: 03/18/21 06:43 Dose: 40 mg Documented by: Multivit/Folic Acid/Iron ( Vitamin Tablet) 1 tab PO DAILYWM [facility] Last Admin: 03/18/21 08:47 Dose: 1 tab Documented by: Propranolol HCl (Propranolol 10 Mg Tablet) 10 mg PO BID [facility] Last Admin: 03/18/21 08:47 Dose: 10 mg Documented by: Saccharomyces Boulardii (Saccharomyces Boulardii 250 Mg Capsule) 250 mg PO DAILY [facility] Last Admin: 03/18/21 08:47 Dose: 250 mg Documented by: Sodium Chloride (Sodium Chloride Flush 0.9% 10 Ml Syringe) 10 ml IVP PRN PRN PRN Reason: NEEDED PER PROVIDER ORDERS Last Admin: 03/05/21 06:07 Dose: 10 ml Documented by: Sodium Chloride (Sodium Chloride Flush 0.9% 10 Ml Syringe) 10 ml IVP 0100,0900,1700 [facility] Last Admin: 03/18/21 08:48 Dose: Not Given Documented by: Spironolactone (Spironolactone 25 Mg Tablet) 25 mg PO DAILY [facility] Last Admin: 03/18/21 08:47 Dose: 25 mg Documented by: Tamsulosin HCl (Tamsulosin 0.4 Mg Capsule) 0.4 mg PO DAILY [facility] Last Admin: 03/18/21 08:47 Dose: 0.4 mg Documented by: Thiamine HCl (Thiamine 100 Mg Tablet) 100 mg PO DAILY [facility] Last Admin: 03/18/21 08:46 Dose: 100 mg Documented by: Zinc Oxide (Cod Liver Oil/Zinc Oxide 113 Gm Tube) 113 gm TOP PRN PRN PRN Reason: Skin Care Last Admin: 03/08/21 14:54 Dose: 1 applic Documented by: Furosemide [Lasix] 20 mg PO DAILY 07/31/20 Propranolol [Inderal] 10 mg PO BID 07/31/20 Spironolactone [Aldactone] 25 mg PO DAILY 07/31/20
[2021-03-19] MEDS: SODIUM CHLORIDE FLUSH 0.9% 10 ML SYRINGE IVP SCH ×3 (01:00→16:03)
[2021-03-19] MEDS: PANTOPRAZOLE 40 MG TABLET PO SCH (06:28)
[2021-03-19 06:39] LABS: BASOPHILS % (AUTO) 0.7 %; EOSINOPHILS # (AUTO) 0.3 10^3/uL (0.0-0.7); EOSINOPHILS % (AUTO) 4.5 %; HCT - HEMATOCRIT 23.4 % (42.0-52.0); LYMPHOCYTES # (AUTO) 0.6 10^3/uL (1.5-3.5); LYMPHOCYTES % (AUTO) 11.3 %; MEAN CORPUSCULAR HEMOGLOBIN 24.7 pg (27.0-31.0); MEAN CORPUSCULAR HGB CONC 29.9 g/dL (32.0-36.0); MEAN CORPUSCULAR VOLUME 82.7 fL (80.0-94.0); MEAN PLATELET VOLUME 10.2 fL (7.4-11.4); MONOCYTES # (AUTO) 0.9 10^3/uL (0.0-1.0); MONOCYTES % (AUTO) 15.8 %; NEUTROPHILS # (AUTO) 3.7 10^3/uL (1.5-6.6); NEUTROPHILS % (AUTO) 67.3 %; PLT - PLATELET COUNT 163 10^3/uL (130-450); RED BLOOD COUNT 2.83 10^6/uL (4.70-6.10); RED CELL DISTRIBUTION WIDTH 25.7 % (12.0-15.0); WHITE BLOOD COUNT 5.5 x10^3/uL (4.8-10.8)
[2021-03-19 06:51] LABS: CALCIUM 8.3 mg/dL (8.5-10.3); POTASSIUM 3.5 mmol/L (3.5-5.0)
[2021-03-19 06:53] LABS: SLIDE REVIEW? Indicated
[2021-03-19] MEDS: LACTULOSE 10 GM /15 ML UDC PO SCH (08:56)
[2021-03-19] MEDS: PRENATAL VITAMIN TABLET PO SCH (08:57)
[2021-03-19] MEDS: FERROUS GLUCONATE 324 MG TABLET PO SCH (08:57)
[2021-03-19] MEDS: SPIRONOLACTONE 25 MG TABLET PO SCH (08:58)
[2021-03-19] MEDS: FUROSEMIDE 20 MG TABLET PO SCH (08:58)
[2021-03-19] MEDS: diltiaZEM CD 120 MG CAPSULE PO SCH (08:58)
[2021-03-19] MEDS: PROPRANOLOL 10 MG TABLET PO SCH ×2 (08:58→20:49)
[2021-03-19] MEDS: SACCHAROMYCES BOULARDII 250 MG CAPSULE PO SCH (08:58)
[2021-03-19] MEDS: THIAMINE 100 MG TABLET PO SCH (08:59)
[2021-03-19] MEDS: TAMSULOSIN 0.4 MG CAPSULE PO SCH (08:59)
--- NOTE | 2021-03-19 15:03 | PROVIDER PROGRESS NOTE ---
Assessment/Plan - Problem List (1) Anemia Assessment/Plan: pt's HGB is 7.0 today. pt has hx of significant anemia and iron deficiency. pt also has hx of End-stage of hepatic liver failure, Kidney disease. We will transfusion 1 unit of blood for patient, continue supplemental iron, continue lab monitor. otherwise pt's Hemodynamic stable. Patient is pending for replacement and Continue consult with social work - Current Meds Current Meds: Current Medications Generic Name Dose Route Start Last Admin Trade Name Rosalina PRN Reason Stop Dose Admin Diltiazem HCl 120 mg 03/07/21 11:00 03/19/21 08:58 Diltiazem Cd 120 Mg Capsule PO 120 mg DAILY TRACI Administration Ferrous Gluconate 324 mg 03/09/21 09:00 03/19/21 08:57 Ferrous Gluconate 324 Mg Tablet PO 324 mg DAILYWM TRACI Administration Furosemide 20 mg 03/14/21 09:00 03/19/21 08:58 Furosemide 20 Mg Tablet PO 20 mg DAILY TRACI Administration Lactulose 10 gm 03/06/21 09:00 03/19/21 08:56 Lactulose 10 Gm /15 Ml Udc PO 10 gm DAILY TRACI Administration Morphine Sulfate 2 mg 03/03/21 00:20 03/05/21 03:27 Morphine 2 Mg/Ml Carpuject IVP 2 mg Q2HR PRN Administration PAIN Multi-Ingredient Ointment 1 applic 03/02/21 03:51 03/07/21 16:32 Zinc Oxide 20% Oint 30 Gm Tube TOP 1 applic PRN PRN Administration Skin Care Pantoprazole Sodium 40 mg 03/07/21 07:00 03/19/21 06:28 Pantoprazole 40 Mg Tablet PO 40 mg QDAC TRACI Administration Multivit/Folic Acid/Iron 1 tab 03/05/21 12:00 03/19/21 08:57 Vitamin Tablet PO 1 tab DAILYWM TRACI Administration Propranolol HCl 10 mg 03/14/21 09:08 03/19/21 08:58 Propranolol 10 Mg Tablet PO 10 mg BID TRACI Administration Saccharomyces Boulardii 250 mg 03/11/21 09:00 03/19/21 08:58 Saccharomyces Boulardii 250 Mg Capsule PO 250 mg DAILY TRACI Administration Sodium Chloride 10 ml 03/01/21 21:15 03/05/21 06:07 Sodium Chloride Flush 0.9% 10 Ml Syringe IVP 10 ml PRN PRN Administration NEEDED PER PROVIDER ORDERS Sodium Chloride 10 ml 03/02/21 01:00 03/19/21 11:19 Sodium Chloride Flush 0.9% 10 Ml Syringe IVP 10 ml 0100,0900,1700 TRACI Administration Spironolactone 25 mg 03/14/21 09:00 03/19/21 08:58 Spironolactone 25 Mg Tablet PO 25 mg DAILY TRACI Administration Tamsulosin HCl 0.4 mg 03/09/21 09:00 03/19/21 08:59 Tamsulosin 0.4 Mg Capsule PO 0.4 mg DAILY TRACI Administration Thiamine HCl 100 mg 03/05/21 12:00 03/19/21 08:59 Thiamine 100 Mg Tablet PO 100 mg DAILY TRACI Administration Zinc Oxide 113 gm 03/01/21 22:30 03/08/21 14:54 Cod Liver Oil/Zinc Oxide 113 Gm Tube TOP 1 applic PRN PRN Administration Skin Care - Lab Result Fish Bone Diagrams: 03/19/21 06:25 03/19/21 06:25 - Additional Planning My Orders: My Active Orders 03/19/21 07:53 Transfuse RBCs Leukoreduced [RC] .ONCE 03/20/21 05:00 BMP - BASIC METABOLIC PANEL [CHEM] DAILYLAB CBC - COMP BLD CT W/AUTO DIFF [HEME] DAILYLAB 03/21/21 05:00 BMP - BASIC METABOLIC PANEL [CHEM] DAILYLAB CBC - COMP BLD CT W/AUTO DIFF [HEME] DAILYLAB 03/22/21 05:00 BMP - BASIC METABOLIC PANEL [CHEM] DAILYLAB CBC - COMP BLD CT W/AUTO DIFF [HEME] DAILYLAB 03/23/21 05:00 BMP - BASIC METABOLIC PANEL [CHEM] DAILYLAB CBC - COMP BLD CT W/AUTO DIFF [HEME] DAILYLAB 03/24/21 05:00 BMP - BASIC METABOLIC PANEL [CHEM] DAILYLAB CBC - COMP BLD CT W/AUTO DIFF [HEME] DAILYLAB Subjective - Subjective Patient Reports: Resting Comfortably, No Complaints Objective Vital Signs: Vital Signs - 24 hr 03/18/21 03/18/21 03/19/21 15:58 21:07 00:10 Temperature 37.2 C 37.4 C Heart Rate Heart Rate [ 92 92 86 Brachial] Respiratory 24 18 Rate Blood Pressure Blood Pressure 128/54 L 111/58 L 117/53 L [Right Brachial artery] O2 Saturation 96 93 03/19/21 03/19/21 03/19/21 10:07 10:52 11:23 Temperature 37.3 C 37.3 C 36.7 C Heart Rate 86 82 Heart Rate [ 80 Brachial] Respiratory 18 18 20 Rate Blood Pressure 106/58 L 119/65 Blood Pressure 106/58 L [Right Brachial artery] O2 Saturation 95 03/19/21 13:22 Temperature 37.3 C Heart Rate 78 Heart Rate [ Brachial] Respiratory 20 Rate Blood Pressure 109/71 Blood Pressure [Right Brachial artery] O2 Saturation Oxygen O2 Source [With Activity] Room air O2 Source Room air I&O (Last 24 Hrs): Intake and Output Totals x24h 03/17/21 03/18/21 03/19/21 23:59 23:59 23:59 Intake Total 880 1640 840 Output Total 2375 2700 900 Balance -1495 -1060 -60 General: Alert, Oriented x3, Cooperative, No acute distress HEENT: Atraumatic Neck: Supple Lymphatic: no adenopathy Neuro: Alert, Non Focal, Oriented Times 3 Cardiovascular: Regular rate, Normal S1, Normal S2 Respiratory: Chest non-tender, No respiratory distress Abdomen: Normal bowel sounds, Soft Extremities: Normal pulses - Results Results: Laboratory Results WBC 5.5 x10^3/uL (4.8-10.8) 03/19/21 06:25 RBC 2.83 10^6/uL (4.70-6.10) L 03/19/21 06:25 Hgb 7.0 g/dL (14.0-18.0) L* 03/19/21 06:25 Hct 23.4 % (42.0-52.0) L 03/19/21 06:25 MCV 82.7 fL (80.0-94.0) 03/19/21 06:25 MCH 24.7 pg (27.0-31.0) L 03/19/21 06:25 MCHC 29.9 g/dL (32.0-36.0) L 03/19/21 06:25 RDW 25.7 % (12.0-15.0) H 03/19/21 06:25 Plt Count 163 10^3/uL (130-450) 03/19/21 06:25 MPV 10.2 fL (7.4-11.4) 03/19/21 06:25 Reticulocyte % (Auto) 2.31 % (0.5-2.3) H 03/09/21 05:41 Neut # (Auto) 3.7 10^3/uL (1.5-6.6) 03/19/21 06:25 Lymph # (Auto) 0.6 10^3/uL (1.5-3.5) L 03/19/21 06:25 Chaves # (Auto) 0.9 10^3/uL (0.0-1.0) 03/19/21 06:25 Eos # (Auto) 0.3 10^3/uL (0.0-0.7) 03/19/21 06:25 Baso # (Auto) 0.0 10^3/uL (0.0-0.1) 03/19/21 06:25 Absolute Nucleated RBC 0.00 x10^3/uL 03/19/21 06:25 Total Counted 100 03/08/21 04:09 Band Neuts % (Manual) Not Reportable 03/09/21 05:41 Abnorm Lymph % (Manual) Not Reportable 03/09/21 05:41 Nucleated RBC % 0.0 /100WBC 03/19/21 06:25 Neutrophils # (Manual) Not Reportable 03/09/21 05:41 Lymphocytes # (Manual) Not Reportable 03/09/21 05:41 Monocytes # (Manual) Not Reportable 03/09/21 05:41 Eosinophils # (Manual) Not Reportable 03/09/21 05:41 Basophils # (Manual) Not Reportable 03/09/21 05:41 Differential Comment MANUAL=AUTO DIFF 03/09/21 05:41 Manual Slide Review Indicated 03/19/21 06:25 WBC Morphology NORMAL APPEARANCE (NORMAL) 03/14/21 05:05 Platelet Estimate DECREASED (<130,000) (NORMAL) 03/15/21 04:49 Platelet Morphology NORMAL APPEARANCE (NORMAL) 03/14/21 05:05 RBC Morph Micro Appear 3+ ANISOCYTOSIS (NORMAL) 1+ TARGET CELLS (NORMAL) 3+ HYPOCHROMASIA (NORMAL) 1+ SCHISTOCYTES (NORMAL) 2+ OVALOCYTES (NORMAL) 03/19/21 06:25 RBC Morph Micro Appear 3+ ANISOCYTOSIS (NORMAL) 1+ TARGET CELLS (NORMAL) 3+ HYPOCHROMASIA (NORMAL) 1+ SCHISTOCYTES (NORMAL) 2+ OVALOCYTES (NORMAL) 03/19/21 06:25 RBC Morph Micro Appear 3+ ANISOCYTOSIS (NORMAL) 1+ TARGET CELLS (NORMAL) 3+ HYPOCHROMASIA (NORMAL) 1+ SCHISTOCYTES (NORMAL) 2+ OVALOCYTES (NORMAL) 03/19/21 06:25 RBC Morph Micro Appear 3+ ANISOCYTOSIS (NORMAL) 1+ TARGET CELLS (NORMAL) 3+ HYPOCHROMASIA (NORMAL) 1+ SCHISTOCYTES (NORMAL) 2+ OVALOCYTES (NORMAL) 03/19/21 06:25 RBC Morph Micro Appear 3+ ANISOCYTOSIS (NORMAL) 1+ TARGET CELLS (NORMAL) 3+ HYPOCHROMASIA (NORMAL) 1+ SCHISTOCYTES (NORMAL) 2+ OVALOCYTES (NORMAL) 03/19/21 06:25 Absolute Retic 0.073 10^6/uL (0.020-0.110) 03/09/21 05:41 PT 16.3 secs (9.9-12.6) H 02/28/21 12:34 INR 1.5 (0.8-1.2) H 02/28/21 12:34 APTT 30.2 secs (24.9-33.3) 02/28/21 12:34 Bld Gas Analysis Time 2320 02/28/21 23:15 Sample Site RIGHT RADIAL 02/28/21 23:15 ABG pH 7.41 (7.35-7.45) 02/28/21 23:15 ABG pCO2 20 mmHg (34-45) L* 02/28/21 23:15 ABG pO2 89 mmHg (80-100) 02/28/21 23:15 ABG HCO3 12.5 mmol/L (22.0-26.0) L 02/28/21 23:15 ABG Total CO2 13.1 MMOL/L (21.0-29.0) L 02/28/21 23:15 ABG O2 Saturation 96 % (94-98) 02/28/21 23:15 ABG Base Excess -10.5 mmol/L (-2.0-3.0) L 02/28/21 23:15 Thanh Test POSITIVE 02/28/21 23:15 VBG pH 7.396 (7.31-7.41) 03/02/21 16:45 VBG pCO2 19.0 mmHg (41-51) L 02/28/21 22:02 VBG pO2 75.4 mmHg (25-47) H 02/28/21 22:02 VBG HCO3 11.7 mmol/L (23-28) L 02/28/21 22:02 VBG Total CO2 12.3 mmol/L (24-29) L 02/28/21 22:02 VBG O2 Saturation 93.4 % (60-80) H 02/28/21 22:02 VBG Base Excess -11.0 mmol/L (-2 - +2) L 02/28/21 22:02 Ionized Calcium 1.05 mmol/L (1.15-1.33) L 03/02/21 16:45 O2 Delivery Device NON REBREATHER MASK 02/28/21 23:15 FiO2 21.00 02/28/21 23:15 Sodium 136 mmol/L (135-145) 03/19/21 06:25 Potassium 3.5 mmol/L (3.5-5.0) 03/19/21 06:25 Chloride 101 mmol/L (101-111) 03/19/21 06:25 Carbon Dioxide 27 mmol/L (21-32) 03/19/21 06:25 Anion Gap 8.0 (6-13) 03/19/21 06:25 BUN 17 mg/dL (6-20) 03/19/21 06:25 Creatinine 1.0 mg/dL (0.6-1.2) 03/19/21 06:25 Estimated GFR (MDRD) 73 (>89) L 03/19/21 06:25 Glucose 98 mg/dL (70-100) 03/19/21 06:25 POC Whole Bld Glucose 134 mg/dL (70 - 100) H 02/28/21 12:27 Lactic Acid 2.5 mmol/L (0.5-2.2) H 02/28/21 21:44 Calcium 8.3 mg/dL (8.5-10.3) L 03/19/21 06:25 Phosphorus 3.4 mg/dL (2.5-4.6) 03/09/21 05:41 Magnesium 1.9 mg/dL (1.7-2.8) 03/08/21 04:09 Iron 18 ug/dL (45-182) L 03/09/21 05:41 TIBC 193 ug/dL (250-450) L 03/09/21 05:41 % Saturation 9 % (20-50) L 03/09/21 05:41 Transferrin 138 mg/dL (180-329) L 03/09/21 05:41 Ferritin 110.3 ng/mL (23.9-336.2) 03/09/21 05:41 Total Bilirubin 2.7 mg/dL (0.2-1.0) H 03/05/21 04:48 AST 19 IU/L (10-42) 03/05/21 04:48 ALT 15 IU/L (10-60) 03/05/21 04:48 Alkaline Phosphatase 100 IU/L (42-121) 03/05/21 04:48 Ammonia 22.0 umol/L (7-35) 03/07/21 11:55 Lactate Dehydrogenase 135 IU/L (91-225) 03/09/21 05:41 Total Creatine Kinase 36 IU/L (22-269) 02/28/21 12:34 Troponin I High Sens 17.5 ng/L (2.3-19.7) 03/03/21 16:42 B-Natriuretic Peptide 313 pg/mL (5-100) H 03/01/21 02:39 Total Protein 6.0 g/dL (6.7-8.2) L 03/05/21 04:48 Albumin 2.1 g/dL (3.2-5.5) L 03/05/21 04:48 Globulin 3.9 g/dL (2.1-4.2) 03/05/21 04:48 Albumin/Globulin Ratio 0.5 (1.0-2.2) L 03/05/21 04:48 Lipase 251 U/L (22-51) H 02/28/21 21:44 Vitamin B12 1216 pg/mL (180-914) H 03/09/21 05:41 Folate 32.00 ng/mL (5.90 - >24.8) 03/09/21 05:41 TSH 2.35 uIU/mL (0.34-5.60) 02/28/21 12:34 Free T4 0.69 ng/dL (0.58-1.64) 02/28/21 12:34 Urine Color DARK YELLOW 02/28/21 13:03 Urine Clarity CLOUDY (CLEAR) 02/28/21 13:03 Urine pH 6.0 PH (5.0-7.5) 02/28/21 13:03 Ur Specific [place] 1.015 (1.002-1.030) 02/28/21 13:03 Urine Protein NEGATIVE mg/dL (NEGATIVE) 02/28/21 13:03 Urine Glucose (UA) NEGATIVE mg/dL (NEGATIVE) 02/28/21 13:03 Urine Ketones NEGATIVE mg/dL (NEGATIVE) 02/28/21 13:03 Urine Occult Blood LARGE (NEGATIVE) H 02/28/21 13:03 Urine Nitrite NEGATIVE (NEGATIVE) 02/28/21 13:03 Urine Bilirubin NEGATIVE (NEGATIVE) 02/28/21 13:03 Urine Urobilinogen 1 (NORMAL) E.U./dL (NORMAL) 02/28/21 13:03 Ur Leukocyte Esterase MODERATE (NEGATIVE) H 02/28/21 13:03 Urine RBC 6-10 /HPF (0-5) H 02/28/21 13:03 Urine WBC >25 /HPF (0-3) H 02/28/21 13:03 Ur Squamous Epith Cells NONE SEEN (<= Few) 02/28/21 13:03 Urine Bacteria Few /HPF (None Seen) 02/28/21 13:03 Ur Microscopic Review INDICATED 02/28/21 13:03 Urine Culture Comments INDICATED 02/28/21 13:03 Nasal Adenovirus (PCR) NOT DETECTED 02/28/21 14:05 Nasal B. parapertussis DNA (PCR) NOT DETECTED 02/28/21 14:05 Nasal Coronavir 229E PCR NOT DETECTED 02/28/21 14:05 Nasal Coronavir HKU1 PCR NOT DETECTED 02/28/21 14:05 Nasal Coronavir NL63 PCR NOT DETECTED 02/28/21 14:05 Nasal Coronavir OC43 PCR NOT DETECTED 02/28/21 14:05 Nasal Enterovir/Rhinovir PCR NOT DETECTED 02/28/21 14:05 Nasal Influenza B PCR NOT DETECTED 02/28/21 14:05 Nasal Influenza A PCR NOT DETECTED 02/28/21 14:05 Nasal Parainfluen 1 PCR NOT DETECTED 02/28/21 14:05 Nasal Parainfluen 2 PCR NOT DETECTED 02/28/21 14:05 Nasal Parainfluen 3 PCR NOT DETECTED 02/28/21 14:05 Nasal Parainfluen 4 PCR NOT DETECTED 02/28/21 14:05 Nasal RSV (PCR) NOT DETECTED 02/28/21 14:05 Nasal Screen MRSA (PCR) NEGATIVE (NEGATIVE) 03/01/21 22:00 Nasal B.pertussis DNA PCR NOT DETECTED 02/28/21 14:05 Nasal C.pneumoniae (PCR) NOT DETECTED 02/28/21 14:05 Gregory Human Metapneumo PCR NOT DETECTED 02/28/21 14:05 Nasal M.pneumoniae (PCR) NOT DETECTED 02/28/21 14:05 Nasal SARS-CoV-2 (PCR) NOT DETECTED 02/28/21 14:05 Stl C. diff Tox B Gene NEGATIVE (NEGATIVE) 03/03/21 00:30 Salicylates < 6.0 mg/dL 02/28/21 12:34 Urine Opiates Screen NEGATIVE (NEGATIVE) 02/28/21 13:03 Ur Oxycodone Screen NEGATIVE (NEGATIVE) 02/28/21 13:03 Urine Methadone Screen NEGATIVE (NEGATIVE) 02/28/21 13:03 Ur Propoxyphene Screen NEGATIVE (NEGATIVE) 02/28/21 13:03 Acetaminophen < 10 ug/mL (10-30) L 02/28/21 12:34 Ur Barbiturates Screen NEGATIVE (NEGATIVE) 02/28/21 13:03 Ur Tricyclics Screen NEGATIVE (NEGATIVE) 02/28/21 13:03 Ur Phencyclidine Scrn NEGATIVE (NEGATIVE) 02/28/21 13:03 Ur Amphetamine Screen NEGATIVE (NEGATIVE) 02/28/21 13:03 U Methamphetamines Scrn NEGATIVE (NEGATIVE) 02/28/21 13:03 U Benzodiazepines Scrn NEGATIVE (NEGATIVE) 02/28/21 13:03 Urine Cocaine Screen NEGATIVE (NEGATIVE) 02/28/21 13:03 U Cannabinoids Screen NEGATIVE (NEGATIVE) 02/28/21 13:03 Ethyl Alcohol < 5.0 mg/dL 02/28/21 12:34 Blood Type A POSITIVE 03/19/21 08:10 Antibody Screen NEGATIVE 03/19/21 08:10 Crossmatch IS Only See Detail 03/19/21 08:10 - Procedures Procedures: Procedures DRAINAGE OF PERITONEAL CAVITY, PERCUTANEOUS APPROACH, DIAGN (12/19/15) TRANSFUSE NONAUT RED BLOOD CELLS IN PERIPH VEIN, PERC (12/19/15) Sepsis Event Note (H) - Evaluation Possible source of Sepsis: positive: Genitourinary, Skin/soft tissue ABX Reporting Has patient been on IV antibiotics over the past 48 hours?: No Current Medications - Current Medications Current Medications: Active Medications Diltiazem HCl (Diltiazem Cd 120 Mg Capsule) 120 mg PO DAILY [facility] Last Admin: 03/19/21 08:58 Dose: 120 mg Documented by: Ferrous Gluconate (Ferrous Gluconate 324 Mg Tablet) 324 mg PO DAILYWM [facility] Last Admin: 03/19/21 08:57 Dose: 324 mg Documented by: Furosemide (Furosemide 20 Mg Tablet) 20 mg PO DAILY [facility] Last Admin: 03/19/21 08:58 Dose: 20 mg Documented by: Lactulose (Lactulose 10 Gm /15 Ml Udc) 10 gm PO DAILY [facility] Last Admin: 03/19/21 08:56 Dose: 10 gm Documented by: Morphine Sulfate (Morphine 2 Mg/Ml Carpuject) 2 mg IVP Q2HR PRN PRN Reason: PAIN Last Admin: 03/05/21 03:27 Dose: 2 mg Documented by: Multi-Ingredient Ointment (Zinc Oxide 20% Oint 30 Gm Tube) 1 applic TOP PRN PRN PRN Reason: Skin Care Last Admin: 03/07/21 16:32 Dose: 1 applic Documented by: Ondansetron HCl (Ondansetron 4 Mg/2 Ml Vial) 4 mg IVP Q6HR PRN PRN Reason: Nausea / Vomiting Pantoprazole Sodium (Pantoprazole 40 Mg Tablet) 40 mg PO QDAC [facility] Last Admin: 03/19/21 06:28 Dose: 40 mg Documented by: Multivit/Folic Acid/Iron ( Vitamin Tablet) 1 tab PO DAILYWM [facility] Last Admin: 03/19/21 08:57 Dose: 1 tab Documented by: Propranolol HCl (Propranolol 10 Mg Tablet) 10 mg PO BID [facility] Last Admin: 03/19/21 08:58 Dose: 10 mg Documented by: Saccharomyces Boulardii (Saccharomyces Boulardii 250 Mg Capsule) 250 mg PO DAILY [facility] Last Admin: 03/19/21 08:58 Dose: 250 mg Documented by: Sodium Chloride (Sodium Chloride Flush 0.9% 10 Ml Syringe) 10 ml IVP PRN PRN PRN Reason: NEEDED PER PROVIDER ORDERS Last Admin: 03/05/21 06:07 Dose: 10 ml Documented by: Sodium Chloride (Sodium Chloride Flush 0.9% 10 Ml Syringe) 10 ml IVP 0100,0900,1700 [facility] Last Admin: 03/19/21 11:19 Dose: 10 ml Documented by: Spironolactone (Spironolactone 25 Mg Tablet) 25 mg PO DAILY [facility] Last Admin: 03/19/21 08:58 Dose: 25 mg Documented by: Tamsulosin HCl (Tamsulosin 0.4 Mg Capsule) 0.4 mg PO DAILY [facility] Last Admin: 03/19/21 08:59 Dose: 0.4 mg Documented by: Thiamine HCl (Thiamine 100 Mg Tablet) 100 mg PO DAILY [facility] Last Admin: 03/19/21 08:59 Dose: 100 mg Documented by: Zinc Oxide (Cod Liver Oil/Zinc Oxide 113 Gm Tube) 113 gm TOP PRN PRN PRN Reason: Skin Care Last Admin: 03/08/21 14:54 Dose: 1 applic Documented by: Furosemide [Lasix] 20 mg PO DAILY 07/31/20 Propranolol [Inderal] 10 mg PO BID 07/31/20 Spironolactone [Aldactone] 25 mg PO DAILY 07/31/20
[2021-03-20] MEDS: SODIUM CHLORIDE FLUSH 0.9% 10 ML SYRINGE IVP SCH ×3 (01:42→16:42)
[2021-03-20 06:08] LABS: BASOPHILS % (AUTO) 0.6 %; EOSINOPHILS # (AUTO) 0.2 10^3/uL (0.0-0.7); EOSINOPHILS % (AUTO) 3.8 %; HCT - HEMATOCRIT 26.6 % (42.0-52.0); HGB - HEMOGLOBIN 8.2 g/dL (14.0-18.0); LYMPHOCYTES # (AUTO) 0.7 10^3/uL (1.5-3.5); LYMPHOCYTES % (AUTO) 11.7 %; MEAN CORPUSCULAR HEMOGLOBIN 24.8 pg (27.0-31.0); MEAN CORPUSCULAR HGB CONC 30.8 g/dL (32.0-36.0); MEAN CORPUSCULAR VOLUME 80.4 fL (80.0-94.0); MEAN PLATELET VOLUME 10.3 fL (7.4-11.4); MONOCYTES # (AUTO) 0.8 10^3/uL (0.0-1.0); MONOCYTES % (AUTO) 12.6 %; NEUTROPHILS # (AUTO) 4.4 10^3/uL (1.5-6.6); PLT - PLATELET COUNT 186 10^3/uL (130-450); RED BLOOD COUNT 3.31 10^6/uL (4.70-6.10); RED CELL DISTRIBUTION WIDTH 24.3 % (12.0-15.0); WHITE BLOOD COUNT 6.3 x10^3/uL (4.8-10.8)
[2021-03-20 06:10] LABS: SLIDE REVIEW? Indicated
[2021-03-20 06:16] LABS: CALCIUM 8.4 mg/dL (8.5-10.3); CREATININE 0.9 mg/dL (0.6-1.2); POTASSIUM 3.6 mmol/L (3.5-5.0)
[2021-03-20 06:29] LABS: PLATELET ESTIMATE, MANUAL NORMAL (130-450,000) (NORMAL); PLATELET MORPHOLOGY NORMAL APPEARANCE (NORMAL); WBC MORPHOLOGY (MULTIPLE) NORMAL APPEARANCE (NORMAL)
[2021-03-20] MEDS: PANTOPRAZOLE 40 MG TABLET PO SCH (06:39)
[2021-03-20] MEDS: SACCHAROMYCES BOULARDII 250 MG CAPSULE PO SCH (08:36)
[2021-03-20] MEDS: FERROUS GLUCONATE 324 MG TABLET PO SCH (08:36)
[2021-03-20] MEDS: THIAMINE 100 MG TABLET PO SCH (08:37)
[2021-03-20] MEDS: TAMSULOSIN 0.4 MG CAPSULE PO SCH (08:37)
[2021-03-20] MEDS: PRENATAL VITAMIN TABLET PO SCH (08:37)
[2021-03-20] MEDS: diltiaZEM CD 120 MG CAPSULE PO SCH (08:37)
[2021-03-20] MEDS: FUROSEMIDE 20 MG TABLET PO SCH (08:37)
[2021-03-20] MEDS: PROPRANOLOL 10 MG TABLET PO SCH ×2 (08:38→21:04)
[2021-03-20] MEDS: SPIRONOLACTONE 25 MG TABLET PO SCH (08:38)
[2021-03-20] MEDS: LACTULOSE 10 GM /15 ML UDC PO SCH (08:40)
--- NOTE | 2021-03-20 15:22 | PROVIDER PROGRESS NOTE ---
Assessment/Plan - Problem List (1) Anemia Assessment/Plan: after 1 units blood transfusion, patient had hemoglobin 8.2, We will continue give patient iron supplement, continue lab monitor. Otherwise, pt is Hemodynamic stable, patient is pending for replacement. - Current Meds Current Meds: Current Medications Generic Name Dose Route Start Last Admin Trade Name Freq PRN Reason Stop Dose Admin Diltiazem HCl 120 mg 03/07/21 11:00 03/20/21 08:37 Diltiazem Cd 120 Mg Capsule PO 120 mg DAILY TRACI Administration Ferrous Gluconate 324 mg 03/09/21 09:00 03/20/21 08:36 Ferrous Gluconate 324 Mg Tablet PO 324 mg DAILYWM TRACI Administration Furosemide 20 mg 03/14/21 09:00 03/20/21 08:37 Furosemide 20 Mg Tablet PO 20 mg DAILY TRACI Administration Lactulose 10 gm 03/06/21 09:00 03/20/21 08:40 Lactulose 10 Gm /15 Ml Udc PO 10 gm DAILY TRACI Administration Morphine Sulfate 2 mg 03/03/21 00:20 03/05/21 03:27 Morphine 2 Mg/Ml Carpuject IVP 2 mg Q2HR PRN Administration PAIN Multi-Ingredient Ointment 1 applic 03/02/21 03:51 03/07/21 16:32 Zinc Oxide 20% Oint 30 Gm Tube TOP 1 applic PRN PRN Administration Skin Care Pantoprazole Sodium 40 mg 03/07/21 07:00 03/20/21 06:39 Pantoprazole 40 Mg Tablet PO 40 mg QDAC TRACI Administration Multivit/Folic Acid/Iron 1 tab 03/05/21 12:00 03/20/21 08:37 Vitamin Tablet PO 1 tab DAILYWM TRACI Administration Propranolol HCl 10 mg 03/14/21 09:08 03/20/21 08:38 Propranolol 10 Mg Tablet PO 10 mg BID TRACI Administration Saccharomyces Boulardii 250 mg 03/11/21 09:00 03/20/21 08:36 Saccharomyces Boulardii 250 Mg Capsule PO 250 mg DAILY TRACI Administration Sodium Chloride 10 ml 03/01/21 21:15 03/05/21 06:07 Sodium Chloride Flush 0.9% 10 Ml Syringe IVP 10 ml PRN PRN Administration NEEDED PER PROVIDER ORDERS Sodium Chloride 10 ml 03/02/21 01:00 03/20/21 08:36 Sodium Chloride Flush 0.9% 10 Ml Syringe IVP 10 ml 0100,0900,1700 TRACI Administration Spironolactone 25 mg 03/14/21 09:00 03/20/21 08:38 Spironolactone 25 Mg Tablet PO 25 mg DAILY TRACI Administration Tamsulosin HCl 0.4 mg 03/09/21 09:00 03/20/21 08:37 Tamsulosin 0.4 Mg Capsule PO 0.4 mg DAILY TRACI Administration Thiamine HCl 100 mg 03/05/21 12:00 03/20/21 08:37 Thiamine 100 Mg Tablet PO 100 mg DAILY TRACI Administration Zinc Oxide 113 gm 03/01/21 22:30 03/08/21 14:54 Cod Liver Oil/Zinc Oxide 113 Gm Tube TOP 1 applic PRN PRN Administration Skin Care - Lab Result Fish Bone Diagrams: 03/20/21 05:55 03/20/21 05:55 - Additional Planning My Orders: My Active Orders 03/21/21 05:00 BMP - BASIC METABOLIC PANEL [CHEM] DAILYLAB CBC - COMP BLD CT W/AUTO DIFF [HEME] DAILYLAB 03/22/21 05:00 BMP - BASIC METABOLIC PANEL [CHEM] DAILYLAB CBC - COMP BLD CT W/AUTO DIFF [HEME] DAILYLAB 03/23/21 05:00 BMP - BASIC METABOLIC PANEL [CHEM] DAILYLAB CBC - COMP BLD CT W/AUTO DIFF [HEME] DAILYLAB 03/24/21 05:00 BMP - BASIC METABOLIC PANEL [CHEM] DAILYLAB CBC - COMP BLD CT W/AUTO DIFF [HEME] DAILYLAB Subjective - Subjective Patient Reports: Resting Comfortably, No Complaints Objective Vital Signs: Vital Signs - 24 hr 03/19/21 03/19/21 03/20/21 15:35 20:51 01:40 Temperature 36.9 C 37.1 C Heart Rate [ 83 86 84 Brachial] Respiratory 20 20 Rate Blood Pressure 119/57 L 116/62 122/59 L [Right Brachial artery] O2 Saturation 94 95 03/20/21 03/20/21 07:00 08:35 Temperature 36.8 C Heart Rate [ 81 Brachial] Respiratory 18 Rate Blood Pressure 110/60 124/57 L [Right Brachial artery] O2 Saturation 94 Oxygen O2 Source [With Activity] Room air O2 Source Room air I&O (Last 24 Hrs): Intake and Output Totals x24h 03/18/21 03/19/21 03/20/21 23:59 23:59 23:59 Intake Total 1640 1530 1090 Output Total 2700 1800 1150 Balance -1060 -270 -60 General: Alert, Oriented x3, Cooperative, No acute distress HEENT: Atraumatic Neck: Supple Lymphatic: no adenopathy Neuro: Alert, Non Focal, Oriented Times 3 Cardiovascular: Regular rate, Normal S1, Normal S2 Respiratory: Chest non-tender, No respiratory distress Abdomen: Normal bowel sounds, Soft Extremities: Normal pulses - Results Results: Laboratory Results WBC 6.3 x10^3/uL (4.8-10.8) 03/20/21 05:55 RBC 3.31 10^6/uL (4.70-6.10) L 03/20/21 05:55 Hgb 8.2 g/dL (14.0-18.0) L 03/20/21 05:55 Hct 26.6 % (42.0-52.0) L 03/20/21 05:55 MCV 80.4 fL (80.0-94.0) 03/20/21 05:55 MCH 24.8 pg (27.0-31.0) L 03/20/21 05:55 MCHC 30.8 g/dL (32.0-36.0) L 03/20/21 05:55 RDW 24.3 % (12.0-15.0) H 03/20/21 05:55 Plt Count 186 10^3/uL (130-450) 03/20/21 05:55 MPV 10.3 fL (7.4-11.4) 03/20/21 05:55 Reticulocyte % (Auto) 2.31 % (0.5-2.3) H 03/09/21 05:41 Neut # (Auto) 4.4 10^3/uL (1.5-6.6) 03/20/21 05:55 Lymph # (Auto) 0.7 10^3/uL (1.5-3.5) L 03/20/21 05:55 Adams # (Auto) 0.8 10^3/uL (0.0-1.0) 03/20/21 05:55 Eos # (Auto) 0.2 10^3/uL (0.0-0.7) 03/20/21 05:55 Baso # (Auto) 0.0 10^3/uL (0.0-0.1) 03/20/21 05:55 Absolute Nucleated RBC 0.00 x10^3/uL 03/20/21 05:55 Total Counted 100 03/08/21 04:09 Band Neuts % (Manual) Not Reportable 03/09/21 05:41 Abnorm Lymph % (Manual) Not Reportable 03/09/21 05:41 Nucleated RBC % 0.0 /100WBC 03/20/21 05:55 Neutrophils # (Manual) Not Reportable 03/09/21 05:41 Lymphocytes # (Manual) Not Reportable 03/09/21 05:41 Monocytes # (Manual) Not Reportable 03/09/21 05:41 Eosinophils # (Manual) Not Reportable 03/09/21 05:41 Basophils # (Manual) Not Reportable 03/09/21 05:41 Differential Comment MANUAL=AUTO DIFF 03/09/21 05:41 Manual Slide Review Indicated 03/20/21 05:55 WBC Morphology NORMAL APPEARANCE (NORMAL) 03/20/21 05:55 Platelet Estimate NORMAL (130-450,000) (NORMAL) 03/20/21 05:55 Platelet Morphology NORMAL APPEARANCE (NORMAL) 03/20/21 05:55 RBC Morph Micro Appear 1+ ANISOCYTOSIS (NORMAL) 2+ HYPOCHROMASIA (NORMAL) 03/20/21 05:55 RBC Morph Micro Appear 1+ ANISOCYTOSIS (NORMAL) 2+ HYPOCHROMASIA (NORMAL) 03/20/21 05:55 Absolute Retic 0.073 10^6/uL (0.020-0.110) 03/09/21 05:41 PT 16.3 secs (9.9-12.6) H 02/28/21 12:34 INR 1.5 (0.8-1.2) H 02/28/21 12:34 APTT 30.2 secs (24.9-33.3) 02/28/21 12:34 Bld Gas Analysis Time 0 02/28/21 23:15 Sample Site RIGHT RADIAL 02/28/21 23:15 ABG pH 7.41 (7.35-7.45) 02/28/21 23:15 ABG pCO2 20 mmHg (34-45) L* 02/28/21 23:15 ABG pO2 89 mmHg (80-100) 02/28/21 23:15 ABG HCO3 12.5 mmol/L (22.0-26.0) L 02/28/21 23:15 ABG Total CO2 13.1 MMOL/L (21.0-29.0) L 02/28/21 23:15 ABG O2 Saturation 96 % (94-98) 02/28/21 23:15 ABG Base Excess -10.5 mmol/L (-2.0-3.0) L 02/28/21 23:15 Thanh Test POSITIVE 02/28/21 23:15 VBG pH 7.396 (7.31-7.41) 03/02/21 16:45 VBG pCO2 19.0 mmHg (41-51) L 02/28/21 22:02 VBG pO2 75.4 mmHg (25-47) H 02/28/21 22:02 VBG HCO3 11.7 mmol/L (23-28) L 02/28/21 22:02 VBG Total CO2 12.3 mmol/L (24-29) L 02/28/21 22:02 VBG O2 Saturation 93.4 % (60-80) H 02/28/21 22:02 VBG Base Excess -11.0 mmol/L (-2 - +2) L 02/28/21 22:02 Ionized Calcium 1.05 mmol/L (1.15-1.33) L 03/02/21 16:45 O2 Delivery Device NON REBREATHER MASK 02/28/21 23:15 FiO2 21.00 02/28/21 23:15 Sodium 135 mmol/L (135-145) 03/20/21 05:55 Potassium 3.6 mmol/L (3.5-5.0) 03/20/21 05:55 Chloride 99 mmol/L (101-111) L 03/20/21 05:55 Carbon Dioxide 27 mmol/L (21-32) 03/20/21 05:55 Anion Gap 9.0 (6-13) 03/20/21 05:55 BUN 16 mg/dL (6-20) 03/20/21 05:55 Creatinine 0.9 mg/dL (0.6-1.2) 03/20/21 05:55 Estimated GFR (MDRD) 83 (>89) L 03/20/21 05:55 Glucose 105 mg/dL (70-100) H 03/20/21 05:55 POC Whole Bld Glucose 134 mg/dL (70 - 100) H 02/28/21 12:27 Lactic Acid 2.5 mmol/L (0.5-2.2) H 02/28/21 21:44 Calcium 8.4 mg/dL (8.5-10.3) L 03/20/21 05:55 Phosphorus 3.4 mg/dL (2.5-4.6) 03/09/21 05:41 Magnesium 1.9 mg/dL (1.7-2.8) 03/08/21 04:09 Iron 18 ug/dL (45-182) L 03/09/21 05:41 TIBC 193 ug/dL (250-450) L 03/09/21 05:41 % Saturation 9 % (20-50) L 03/09/21 05:41 Transferrin 138 mg/dL (180-329) L 03/09/21 05:41 Ferritin 110.3 ng/mL (23.9-336.2) 03/09/21 05:41 Total Bilirubin 2.7 mg/dL (0.2-1.0) H 03/05/21 04:48 AST 19 IU/L (10-42) 03/05/21 04:48 ALT 15 IU/L (10-60) 03/05/21 04:48 Alkaline Phosphatase 100 IU/L (42-121) 03/05/21 04:48 Ammonia 22.0 umol/L (7-35) 03/07/21 11:55 Lactate Dehydrogenase 135 IU/L (91-225) 03/09/21 05:41 Total Creatine Kinase 36 IU/L (22-269) 02/28/21 12:34 Troponin I High Sens 17.5 ng/L (2.3-19.7) 03/03/21 16:42 B-Natriuretic Peptide 313 pg/mL (5-100) H 03/01/21 02:39 Total Protein 6.0 g/dL (6.7-8.2) L 03/05/21 04:48 Albumin 2.1 g/dL (3.2-5.5) L 03/05/21 04:48 Globulin 3.9 g/dL (2.1-4.2) 03/05/21 04:48 Albumin/Globulin Ratio 0.5 (1.0-2.2) L 03/05/21 04:48 Lipase 251 U/L (22-51) H 02/28/21 21:44 Vitamin B12 1216 pg/mL (180-914) H 03/09/21 05:41 Folate 32.00 ng/mL (5.90 - >24.8) 03/09/21 05:41 TSH 2.35 uIU/mL (0.34-5.60) 02/28/21 12:34 Free T4 0.69 ng/dL (0.58-1.64) 02/28/21 12:34 Urine Color DARK YELLOW 02/28/21 13:03 Urine Clarity CLOUDY (CLEAR) 02/28/21 13:03 Urine pH 6.0 PH (5.0-7.5) 02/28/21 13:[address] [place] [address] [place] 1.015 (1.002-1.030) 02/28/21 13:03 Urine Protein NEGATIVE mg/dL (NEGATIVE) 02/28/21 13:03 Urine Glucose (UA) NEGATIVE mg/dL (NEGATIVE) 02/28/21 13:03 Urine Ketones NEGATIVE mg/dL (NEGATIVE) 02/28/21 13:03 Urine Occult Blood LARGE (NEGATIVE) H 02/28/21 13:03 Urine Nitrite NEGATIVE (NEGATIVE) 02/28/21 13:03 Urine Bilirubin NEGATIVE (NEGATIVE) 02/28/21 13:03 Urine Urobilinogen 1 (NORMAL) E.U./dL (NORMAL) 02/28/21 13:03 Ur Leukocyte Esterase MODERATE (NEGATIVE) H 02/28/21 13:03 Urine RBC 6-10 /HPF (0-5) H 02/28/21 13:03 Urine WBC >25 /HPF (0-3) H 02/28/21 13:03 Ur Squamous Epith Cells NONE SEEN (<= Few) 02/28/21 13:03 Urine Bacteria Few /HPF (None Seen) 02/28/21 13:03 Ur Microscopic Review INDICATED 02/28/21 13:03 Urine Culture Comments INDICATED 02/28/21 13:03 Nasal Adenovirus (PCR) NOT DETECTED 02/28/21 14:05 Nasal B. parapertussis DNA (PCR) NOT DETECTED 02/28/21 14:05 Nasal Coronavir 229E PCR NOT DETECTED 02/28/21 14:05 Nasal Coronavir HKU1 PCR NOT DETECTED 02/28/21 14:05 Nasal Coronavir NL63 PCR NOT DETECTED 02/28/21 14:05 Nasal Coronavir OC43 PCR NOT DETECTED 02/28/21 14:05 Nasal Enterovir/Rhinovir PCR NOT DETECTED 02/28/21 14:05 Nasal Influenza B PCR NOT DETECTED 02/28/21 14:05 Nasal Influenza A PCR NOT DETECTED 02/28/21 14:05 Nasal Parainfluen 1 PCR NOT DETECTED 02/28/21 14:05 Nasal Parainfluen 2 PCR NOT DETECTED 02/28/21 14:05 Nasal Parainfluen 3 PCR NOT DETECTED 02/28/21 14:05 Nasal Parainfluen 4 PCR NOT DETECTED 02/28/21 14:05 Nasal RSV (PCR) NOT DETECTED 02/28/21 14:05 Nasal Screen MRSA (PCR) NEGATIVE (NEGATIVE) 03/01/21 22:00 Nasal B.pertussis DNA PCR NOT DETECTED 02/28/21 14:05 Nasal C.pneumoniae (PCR) NOT DETECTED 02/28/21 14:05 Gregory Human Metapneumo PCR NOT DETECTED 02/28/21 14:05 Nasal M.pneumoniae (PCR) NOT DETECTED 02/28/21 14:05 Nasal SARS-CoV-2 (PCR) NOT DETECTED 02/28/21 14:05 Stl C. diff Tox B Gene NEGATIVE (NEGATIVE) 03/03/21 00:30 Salicylates < 6.0 mg/dL 02/28/21 12:34 Urine Opiates Screen NEGATIVE (NEGATIVE) 02/28/21 13:03 Ur Oxycodone Screen NEGATIVE (NEGATIVE) 02/28/21 13:03 Urine Methadone Screen NEGATIVE (NEGATIVE) 02/28/21 13:03 Ur Propoxyphene Screen NEGATIVE (NEGATIVE) 02/28/21 13:03 Acetaminophen < 10 ug/mL (10-30) L 02/28/21 12:34 Ur Barbiturates Screen NEGATIVE (NEGATIVE) 02/28/21 13:03 Ur Tricyclics Screen NEGATIVE (NEGATIVE) 02/28/21 13:03 Ur Phencyclidine Scrn NEGATIVE (NEGATIVE) 02/28/21 13:03 Ur Amphetamine Screen NEGATIVE (NEGATIVE) 02/28/21 13:03 U Methamphetamines Scrn NEGATIVE (NEGATIVE) 02/28/21 13:03 U Benzodiazepines Scrn NEGATIVE (NEGATIVE) 02/28/21 13:03 Urine Cocaine Screen NEGATIVE (NEGATIVE) 02/28/21 13:03 U Cannabinoids Screen NEGATIVE (NEGATIVE) 02/28/21 13:03 Ethyl Alcohol < 5.0 mg/dL 02/28/21 12:34 Blood Type A POSITIVE 03/19/21 08:10 Antibody Screen NEGATIVE 03/19/21 08:10 Crossmatch IS Only See Detail 03/19/21 08:10 - Procedures Procedures: Procedures DRAINAGE OF PERITONEAL CAVITY, PERCUTANEOUS APPROACH, DIAGN (12/19/15) TRANSFUSE NONAUT RED BLOOD CELLS IN PERIPH VEIN, PERC (12/19/15) Sepsis Event Note (H) - Evaluation Possible source of Sepsis: positive: Genitourinary, Skin/soft tissue ABX Reporting Has patient been on IV antibiotics over the past 48 hours?: No Current Medications - Current Medications Current Medications: Active Medications Diltiazem HCl (Diltiazem Cd 120 Mg Capsule) 120 mg PO DAILY [facility] Last Admin: 03/20/21 08:37 Dose: 120 mg Documented by: Ferrous Gluconate (Ferrous Gluconate 324 Mg Tablet) 324 mg PO DAILYWM [facility] Last Admin: 03/20/21 08:36 Dose: 324 mg Documented by: Furosemide (Furosemide 20 Mg Tablet) 20 mg PO DAILY [facility] Last Admin: 03/20/21 08:37 Dose: 20 mg Documented by: Lactulose (Lactulose 10 Gm /15 Ml Udc) 10 gm PO DAILY [facility] Last Admin: 03/20/21 08:40 Dose: 10 gm Documented by: Morphine Sulfate (Morphine 2 Mg/Ml Carpuject) 2 mg IVP Q2HR PRN PRN Reason: PAIN Last Admin: 03/05/21 03:27 Dose: 2 mg Documented by: Multi-Ingredient Ointment (Zinc Oxide 20% Oint 30 Gm Tube) 1 applic TOP PRN PRN PRN Reason: Skin Care Last Admin: 03/07/21 16:32 Dose: 1 applic Documented by: Ondansetron HCl (Ondansetron 4 Mg/2 Ml Vial) 4 mg IVP Q6HR PRN PRN Reason: Nausea / Vomiting Pantoprazole Sodium (Pantoprazole 40 Mg Tablet) 40 mg PO QDAC [facility] Last Admin: 03/20/21 06:39 Dose: 40 mg Documented by: Multivit/Folic Acid/Iron ( Vitamin Tablet) 1 tab PO DAILYWM [facility] Last Admin: 03/20/21 08:37 Dose: 1 tab Documented by: Propranolol HCl (Propranolol 10 Mg Tablet) 10 mg PO BID [facility] Last Admin: 03/20/21 08:38 Dose: 10 mg Documented by: Saccharomyces Boulardii (Saccharomyces Boulardii 250 Mg Capsule) 250 mg PO DAILY [facility] Last Admin: 03/20/21 08:36 Dose: 250 mg Documented by: Sodium Chloride (Sodium Chloride Flush 0.9% 10 Ml Syringe) 10 ml IVP PRN PRN PRN Reason: NEEDED PER PROVIDER ORDERS Last Admin: 03/05/21 06:07 Dose: 10 ml Documented by: Sodium Chloride (Sodium Chloride Flush 0.9% 10 Ml Syringe) 10 ml IVP 01 00,0900,1700 [facility] Last Admin: 03/20/21 08:36 Dose: 10 ml Documented by: Spironolactone (Spironolactone 25 Mg Tablet) 25 mg PO DAILY [facility] Last Admin: 03/20/21 08:38 Dose: 25 mg Documented by: Tamsulosin HCl (Tamsulosin 0.4 Mg Capsule) 0.4 mg PO DAILY [facility] Last Admin: 03/20/21 08:37 Dose: 0.4 mg Documented by: Thiamine HCl (Thiamine 100 Mg Tablet) 100 mg PO DAILY [facility] Last Admin: 03/20/21 08:37 Dose: 100 mg Documented by: Zinc Oxide (Cod Liver Oil/Zinc Oxide 113 Gm Tube) 113 gm TOP PRN PRN PRN Reason: Skin Care Last Admin: 03/08/21 14:54 Dose: 1 applic Documented by: Furosemide [Lasix] 20 mg PO DAILY 07/31/20 Propranolol [Inderal] 10 mg PO BID 07/31/20 Spironolactone [Aldactone] 25 mg PO DAILY 07/31/20
[2021-03-21 05:52] LABS: BASOPHILS % (AUTO) 0.6 %; EOSINOPHILS # (AUTO) 0.2 10^3/uL (0.0-0.7); EOSINOPHILS % (AUTO) 3.3 %; HCT - HEMATOCRIT 27.5 % (42.0-52.0); HGB - HEMOGLOBIN 8.4 g/dL (14.0-18.0); LYMPHOCYTES # (AUTO) 0.7 10^3/uL (1.5-3.5); LYMPHOCYTES % (AUTO) 9.8 %; MEAN CORPUSCULAR HEMOGLOBIN 24.9 pg (27.0-31.0); MEAN CORPUSCULAR HGB CONC 30.5 g/dL (32.0-36.0); MEAN CORPUSCULAR VOLUME 81.4 fL (80.0-94.0); MEAN PLATELET VOLUME 10.1 fL (7.4-11.4); MONOCYTES # (AUTO) 0.9 10^3/uL (0.0-1.0); MONOCYTES % (AUTO) 13.4 %; NEUTROPHILS # (AUTO) 4.8 10^3/uL (1.5-6.6); NEUTROPHILS % (AUTO) 72.3 %; PLT - PLATELET COUNT 184 10^3/uL (130-450); RED BLOOD COUNT 3.38 10^6/uL (4.70-6.10); RED CELL DISTRIBUTION WIDTH 24.2 % (12.0-15.0); WHITE BLOOD COUNT 6.7 x10^3/uL (4.8-10.8)
[2021-03-21 05:54] LABS: SLIDE REVIEW? Indicated
[2021-03-21 06:01] LABS: CALCIUM 8.5 mg/dL (8.5-10.3); POTASSIUM 3.7 mmol/L (3.5-5.0)
[2021-03-21 06:12] LABS: PLATELET ESTIMATE, MANUAL NORMAL (130-450,000) (NORMAL); PLATELET MORPHOLOGY NORMAL APPEARANCE (NORMAL); WBC MORPHOLOGY (MULTIPLE) NORMAL APPEARANCE (NORMAL)
[2021-03-21] MEDS: SODIUM CHLORIDE FLUSH 0.9% 10 ML SYRINGE IVP SCH ×4 (07:00→23:52)
[2021-03-21] MEDS: PANTOPRAZOLE 40 MG TABLET PO SCH (07:00)
[2021-03-21] MEDS: diltiaZEM CD 120 MG CAPSULE PO SCH (09:26)
[2021-03-21] MEDS: LACTULOSE 10 GM /15 ML UDC PO SCH (09:26)
[2021-03-21] MEDS: THIAMINE 100 MG TABLET PO SCH (09:27)
[2021-03-21] MEDS: SACCHAROMYCES BOULARDII 250 MG CAPSULE PO SCH (09:27)
[2021-03-21] MEDS: FUROSEMIDE 20 MG TABLET PO SCH (09:27)
[2021-03-21] MEDS: PRENATAL VITAMIN TABLET PO SCH (09:27)
[2021-03-21] MEDS: PROPRANOLOL 10 MG TABLET PO SCH ×2 (09:28→20:54)
[2021-03-21] MEDS: SPIRONOLACTONE 25 MG TABLET PO SCH (09:28)
[2021-03-21] MEDS: FERROUS GLUCONATE 324 MG TABLET PO SCH (09:28)
[2021-03-21] MEDS: TAMSULOSIN 0.4 MG CAPSULE PO SCH (09:28)
[2021-03-22] MEDS: PANTOPRAZOLE 40 MG TABLET PO SCH (05:53)
[2021-03-22 06:13] LABS: BASOPHILS % (AUTO) 0.6 %; EOSINOPHILS # (AUTO) 0.2 10^3/uL (0.0-0.7); EOSINOPHILS % (AUTO) 2.7 %; HCT - HEMATOCRIT 27.2 % (42.0-52.0); HGB - HEMOGLOBIN 8.4 g/dL (14.0-18.0); LYMPHOCYTES # (AUTO) 0.8 10^3/uL (1.5-3.5); LYMPHOCYTES % (AUTO) 11.2 %; MEAN CORPUSCULAR HEMOGLOBIN 25.1 pg (27.0-31.0); MEAN CORPUSCULAR HGB CONC 30.9 g/dL (32.0-36.0); MEAN CORPUSCULAR VOLUME 81.2 fL (80.0-94.0); MEAN PLATELET VOLUME 10.5 fL (7.4-11.4); MONOCYTES % (AUTO) 14.3 %; NEUTROPHILS % (AUTO) 70.8 %; PLT - PLATELET COUNT 189 10^3/uL (130-450); RED BLOOD COUNT 3.35 10^6/uL (4.70-6.10); RED CELL DISTRIBUTION WIDTH 23.7 % (12.0-15.0); WHITE BLOOD COUNT 7.1 x10^3/uL (4.8-10.8)
[2021-03-22 06:18] LABS: SLIDE REVIEW? Indicated
[2021-03-22 06:21] LABS: CALCIUM 8.4 mg/dL (8.5-10.3); CREATININE 0.9 mg/dL (0.6-1.2); POTASSIUM 3.6 mmol/L (3.5-5.0)
[2021-03-22 07:13] LABS: PLATELET ESTIMATE, MANUAL NORMAL (130-450,000) (NORMAL); PLATELET MORPHOLOGY NORMAL APPEARANCE (NORMAL)
[2021-03-22] MEDS: SACCHAROMYCES BOULARDII 250 MG CAPSULE PO SCH (08:29)
[2021-03-22] MEDS: PRENATAL VITAMIN TABLET PO SCH (08:30)
[2021-03-22] MEDS: FERROUS GLUCONATE 324 MG TABLET PO SCH (08:30)
[2021-03-22] MEDS: diltiaZEM CD 120 MG CAPSULE PO SCH (08:30)
[2021-03-22] MEDS: TAMSULOSIN 0.4 MG CAPSULE PO SCH (08:30)
[2021-03-22] MEDS: LACTULOSE 10 GM /15 ML UDC PO SCH (08:31)
[2021-03-22] MEDS: PROPRANOLOL 10 MG TABLET PO SCH ×2 (08:31→20:18)
[2021-03-22] MEDS: SPIRONOLACTONE 25 MG TABLET PO SCH (08:31)
[2021-03-22] MEDS: THIAMINE 100 MG TABLET PO SCH (08:31)
[2021-03-22] MEDS: FUROSEMIDE 20 MG TABLET PO SCH (08:31)
[2021-03-22] MEDS: SODIUM CHLORIDE FLUSH 0.9% 10 ML SYRINGE IVP SCH ×2 (08:32→19:32)
--- NOTE | 2021-03-22 11:00 | PROVIDER PROGRESS NOTE ---
Assessment/Plan - Problem List (1) Anemia Assessment/Plan: 03/22 HGB is stable, pt has no complaint, and pleasant and comfortable. pt is pending for replacement. after 1 units blood transfusion, patient had hemoglobin 8.2, We will continue give patient iron supplement, continue lab monitor. Otherwise, pt is Hemodynamic stable, patient is pending for replacement. - Current Meds Current Meds: Current Medications Generic Name Dose Route Start Last Admin Trade Name Freq PRN Reason Stop Dose Admin Diltiazem HCl 120 mg 03/07/21 11:00 03/22/21 08:30 Diltiazem Cd 120 Mg Capsule PO 120 mg DAILY TRACI Administration Ferrous Gluconate 324 mg 03/09/21 09:00 03/22/21 08:30 Ferrous Gluconate 324 Mg Tablet PO 324 mg DAILYWM [facility]ACI Administration Furosemide 20 mg 03/14/21 09:00 03/22/21 08:31 Furosemide 20 Mg Tablet PO 20 mg DAILY [facility]I Administration Lactulose 10 gm 03/06/21 09:00 03/22/21 08:31 Lactulose 10 Gm /15 Ml Udc PO 10 gm DAILY TRACI Administration Morphine Sulfate 2 mg 03/03/21 00:20 03/05/21 03:27 Morphine 2 Mg/Ml Carpuject IVP 2 mg Q2HR PRN Administration PAIN Multi-Ingredient Ointment 1 applic 03/02/21 03:51 03/07/21 16:32 Zinc Oxide 20% Oint 30 Gm Tube TOP 1 applic PRN PRN Administration Skin Care Pantoprazole Sodium 40 mg 03/07/21 07:00 03/22/21 05:53 Pantoprazole 40 Mg Tablet PO 40 mg QDAC TRACI Administration Multivit/Folic Acid/Iron 1 tab 03/05/21 12:00 03/22/21 08:30 Vitamin Tablet PO 1 tab DAILYWM [facility]ACI Administration Propranolol HCl 10 mg 03/14/21 09:08 03/22/21 08:31 Propranolol 10 Mg Tablet PO 10 mg BID TRACI Administration Saccharomyces Boulardii 250 mg 03/11/21 09:00 03/22/21 08:29 Saccharomyces Boulardii 250 Mg Capsule PO 250 mg DAILY TRACI Administration Sodium Chloride 10 ml 03/01/21 21:15 03/05/21 06:07 Sodium Chloride Flush 0.9% 10 Ml Syringe IVP 10 ml PRN PRN Administration NEEDED PER PROVIDER ORDERS Sodium Chloride 10 ml 03/02/21 01:00 03/22/21 08:32 Sodium Chloride Flush 0.9% 10 Ml Syringe IVP 10 ml 0100,0900,1700 [facility]I Administration Spironolactone 25 mg 03/14/21 09:00 03/22/21 08:31 Spironolactone 25 Mg Tablet PO 25 mg DAILY [facility]I Administration Tamsulosin HCl 0.4 mg 03/09/21 09:00 03/22/21 08:30 Tamsulosin 0.4 Mg Capsule PO 0.4 mg DAILY [facility]ACI Administration Thiamine HCl 100 mg 03/05/21 12:00 03/22/21 08:31 Thiamine 100 Mg Tablet PO 100 mg DAILY TRACI Administration Zinc Oxide 113 gm 03/01/21 22:30 03/08/21 14:54 Cod Liver Oil/Zinc Oxide 113 Gm Tube TOP 1 applic PRN PRN Administration Skin Care - Lab Result Fish Bone Diagrams: 03/22/21 05:30 03/22/21 05:30 - Additional Planning My Orders: My Active Orders 03/23/21 05:00 BMP - BASIC METABOLIC PANEL [CHEM] DAILYLAB CBC - COMP BLD CT W/AUTO DIFF [HEME] DAILYLAB 03/24/21 05:00 BMP - BASIC METABOLIC PANEL [CHEM] DAILYLAB CBC - COMP BLD CT W/AUTO DIFF [HEME] DAILYLAB Subjective - Subjective Patient Reports: Feeling Better, Resting Comfortably Objective Vital Signs: Vital Signs - 24 hr 03/21/21 03/21/21 03/21/21 16:00 20:54 23:53 Temperature 36.7 C 37.5 C Heart Rate [ 87 81 84 Brachial] Respiratory 18 20 Rate Blood Pressure 143/65 H 108/54 L 134/51 H [Right Brachial artery] O2 Saturation 95 94 03/22/21 03/22/21 07:34 08:27 Temperature 36.8 C Heart Rate [ 81 83 Brachial] Respiratory 16 Rate Blood Pressure 115/65 125/65 [Right Brachial artery] O2 Saturation 94 Oxygen O2 Source [With Activity] Room air O2 Source Room air I&O (Last 24 Hrs): Intake and Output Totals x24h 03/20/21 03/21/21 03/22/21 23:59 23:59 23:59 Intake Total 1390 728 390 Output Total 1775 1590 825 Balance -385 -1022 -435 General: Alert, Oriented x3, Cooperative, No acute distress HEENT: Atraumatic Neck: Supple Lymphatic: no adenopathy Neuro: Alert, Non Focal, Oriented Times 3 Cardiovascular: Regular rate, Normal S1, Normal S2 Respiratory: Chest non-tender, No respiratory distress Abdomen: Normal bowel sounds, Soft, No tenderness Extremities: Normal pulses - Results Results: Laboratory Results WBC 7.1 x10^3/uL (4.8-10.8) 03/22/21 05:30 RBC 3.35 10^6/uL (4.70-6.10) L 03/22/21 05:30 Hgb 8.4 g/dL (14.0-18.0) L 03/22/21 05:30 Hct 27.2 % (42.0-52.0) L 03/22/21 05:30 MCV 81.2 fL (80.0-94.0) 03/22/21 05:30 MCH 25.1 pg (27.0-31.0) L 03/22/21 05:30 MCHC 30.9 g/dL (32.0-36.0) L 03/22/21 05:30 RDW 23.7 % (12.0-15.0) H 03/22/21 05:30 Plt Count 189 10^3/uL (130-450) 03/22/21 05:30 MPV 10.5 fL (7.4-11.4) 03/22/21 05:30 Reticulocyte % (Auto) 2.31 % (0.5-2.3) H 03/09/21 05:41 Neut # (Auto) 5.0 10^3/uL (1.5-6.6) 03/22/21 05:30 Lymph # (Auto) 0.8 10^3/uL (1.5-3.5) L 03/22/21 05:30 Craig # (Auto) 1.0 10^3/uL (0.0-1.0) 03/22/21 05:30 Eos # (Auto) 0.2 10^3/uL (0.0-0.7) 03/22/21 05:30 Baso # (Auto) 0.0 10^3/uL (0.0-0.1) 03/22/21 05:30 Absolute Nucleated RBC 0.00 x10^3/uL 03/22/21 05:30 Total Counted 100 03/08/21 04:09 Band Neuts % (Manual) Not Reportable 03/09/21 05:41 Abnorm Lymph % (Manual) Not Reportable 03/09/21 05:41 Nucleated RBC % 0.0 /100WBC 03/22/21 05:30 Neutrophils # (Manual) Not Reportable 03/09/21 05:41 Lymphocytes # (Manual) Not Reportable 03/09/21 05:41 Monocytes # (Manual) Not Reportable 03/09/21 05:41 Eosinophils # (Manual) Not Reportable 03/09/21 05:41 Basophils # (Manual) Not Reportable 03/09/21 05:41 Differential Comment MANUAL=AUTO DIFF 03/09/21 05:41 Manual Slide Review Indicated 03/22/21 05:30 WBC Morphology NORMAL APPEARANCE (NORMAL) 03/21/21 05:34 Platelet Estimate NORMAL (130-450,000) (NORMAL) 03/22/21 05:30 Platelet Morphology NORMAL APPEARANCE (NORMAL) 03/22/21 05:30 RBC Morph Micro Appear 2+ HYPOCHROMASIA (NORMAL) 2+ ANISOCYTOSIS (NORMAL) 03/22/21 05:30 RBC Morph Micro Appear 2+ HYPOCHROMASIA (NORMAL) 2+ ANISOCYTOSIS (NORMAL) 03/22/21 05:30 Absolute Retic 0.073 10^6/uL (0.020-0.110) 03/09/21 05:41 PT 16.3 secs (9.9-12.6) H 02/28/21 12:34 INR 1.5 (0.8-1.2) H 02/28/21 12:34 APTT 30.2 secs (24.9-33.3) 02/28/21 12:34 Bld Gas Analysis Time 2320 02/28/21 23:15 Sample Site RIGHT RADIAL 02/28/21 23:15 ABG pH 7.41 (7.35-7.45) 02/28/21 23:15 ABG pCO2 20 mmHg (34-45) L* 02/28/21 23:15 ABG pO2 89 mmHg (80-100) 02/28/21 23:15 ABG HCO3 12.5 mmol/L (22.0-26.0) L 02/28/21 23:15 ABG Total CO2 13.1 MMOL/L (21.0-29.0) L 02/28/21 23:15 ABG O2 Saturation 96 % (94-98) 02/28/21 23:15 ABG Base Excess -10.5 mmol/L (-2.0-3.0) L 02/28/21 23:15 Thanh Test POSITIVE 02/28/21 23:15 VBG pH 7.396 (7.31-7.41) 03/02/21 16:45 VBG pCO2 19.0 mmHg (41-51) L 02/28/21 22:02 VBG pO2 75.4 mmHg (25-47) H 02/28/21 22:02 VBG HCO3 11.7 mmol/L (23-28) L 02/28/21 22:02 VBG Total CO2 12.3 mmol/L (24-29) L 02/28/21 22:02 VBG O2 Saturation 93.4 % (60-80) H 02/28/21 22:02 VBG Base Excess -11.0 mmol/L (-2 - +2) L 02/28/21 22:02 Ionized Calcium 1.05 mmol/L (1.15-1.33) L 03/02/21 16:45 O2 Delivery Device NON REBREATHER MASK 02/28/21 23:15 FiO2 21.00 02/28/21 23:15 Sodium 135 mmol/L (135-145) 03/22/21 05:30 Potassium 3.6 mmol/L (3.5-5.0) 03/22/21 05:30 Chloride 100 mmol/L (101-111) L 03/22/21 05:30 Carbon Dioxide 26 mmol/L (21-32) 03/22/21 05:30 Anion Gap 9.0 (6-13) 03/22/21 05:30 BUN 16 mg/dL (6-20) 03/22/21 05:30 Creatinine 0.9 mg/dL (0.6-1.2) 03/22/21 05:30 Estimated GFR (MDRD) 83 (>89) L 03/22/21 05:30 Glucose 102 mg/dL (70-100) H 03/22/21 05:30 POC Whole Bld Glucose 134 mg/dL (70 - 100) H 02/28/21 12:27 Lactic Acid 2.5 mmol/L (0.5-2.2) H 02/28/21 21:44 Calcium 8.4 mg/dL (8.5-10.3) L 03/22/21 05:30 Phosphorus 3.4 mg/dL (2.5-4.6) 03/09/21 05:41 Magnesium 1.9 mg/dL (1.7-2.8) 03/08/21 04:09 Iron 18 ug/dL (45-182) L 03/09/21 05:41 TIBC 193 ug/dL (250-450) L 03/09/21 05:41 % Saturation 9 % (20-50) L 03/09/21 05:41 Transferrin 138 mg/dL (180-329) L 03/09/21 05:41 Ferritin 110.3 ng/mL (23.9-336.2) 03/09/21 05:41 Total Bilirubin 2.7 mg/dL (0.2-1.0) H 03/05/21 04:48 AST 19 IU/L (10-42) 03/05/21 04:48 ALT 15 IU/L (10-60) 03/05/21 04:48 Alkaline Phosphatase 100 IU/L (42-121) 03/05/21 04:48 Ammonia 22.0 umol/L (7-35) 03/07/21 11:55 Lactate Dehydrogenase 135 IU/L (91-225) 03/09/21 05:41 Total Creatine Kinase 36 IU/L (22-269) 02/28/21 12:34 Troponin I High Sens 17.5 ng/L (2.3-19.7) 03/03/21 16:42 B-Natriuretic Peptide 313 pg/mL (5-100) H 03/01/21 02:39 Total Protein 6.0 g/dL (6.7-8.2) L 03/05/21 04:48 Albumin 2.1 g/dL (3.2-5.5) L 03/05/21 04:48 Globulin 3.9 g/dL (2.1-4.2) 03/05/21 04:48 Albumin/Globulin Ratio 0.5 (1.0-2.2) L 03/05/21 04:48 Lipase 251 U/L (22-51) H 02/28/21 21:44 Vitamin B12 1216 pg/mL (180-914) H 03/09/21 05:41 Folate 32.00 ng/mL (5.90 - >24.8) 03/09/21 05:41 TSH 2.35 uIU/mL (0.34-5.60) 02/28/21 12:34 Free T4 0.69 ng/dL (0.58-1.64) 02/28/21 12:34 Urine Color DARK YELLOW 02/28/21 13:03 Urine Clarity CLOUDY (CLEAR) 02/28/21 13:03 Urine pH 6.0 PH (5.0-7.5) 02/28/21 13:03 Ur Specific [place]ship 1.015 (1.002-1.030) 02/28/21 13:03 Urine Protein NEGATIVE mg/dL (NEGATIVE) 02/28/21 13:03 Urine Glucose (UA) NEGATIVE mg/dL (NEGATIVE) 02/28/21 13:03 Urine Ketones NEGATIVE mg/dL (NEGATIVE) 02/28/21 13:03 Urine Occult Blood LARGE (NEGATIVE) H 02/28/21 13:03 Urine Nitrite NEGATIVE (NEGATIVE) 02/28/21 13:03 Urine Bilirubin NEGATIVE (NEGATIVE) 02/28/21 13:03 Urine Urobilinogen 1 (NORMAL) E.U./dL (NORMAL) 02/28/21 13:03 Ur Leukocyte Esterase MODERATE (NEGATIVE) H 02/28/21 13:03 Urine RBC 6-10 /HPF (0-5) H 02/28/21 13:03 Urine WBC >25 /HPF (0-3) H 02/28/21 13:03 Ur Squamous Epith Cells NONE SEEN (<= Few) 02/28/21 13:03 Urine Bacteria Few /HPF (None Seen) 02/28/21 13:03 Ur Microscopic Review INDICATED 02/28/21 13:03 Urine Culture Comments INDICATED 02/28/21 13:03 Nasal Adenovirus (PCR) NOT DETECTED 02/28/21 14:05 Nasal B. parapertussis DNA (PCR) NOT DETECTED 02/28/21 14:05 Nasal Coronavir 229E PCR NOT DETECTED 02/28/21 14:05 Nasal Coronavir HKU1 PCR NOT DETECTED 02/28/21 14:05 Nasal Coronavir NL63 PCR NOT DETECTED 02/28/21 14:05 Nasal Coronavir OC43 PCR NOT DETECTED 02/28/21 14:05 Nasal Enterovir/Rhinovir PCR NOT DETECTED 02/28/21 14:05 Nasal Influenza B PCR NOT DETECTED 02/28/21 14:05 Nasal Influenza A PCR NOT DETECTED 02/28/21 14:05 Nasal Parainfluen 1 PCR NOT DETECTED 02/28/21 14:05 Nasal Parainfluen 2 PCR NOT DETECTED 02/28/21 14:05 Nasal Parainfluen 3 PCR NOT DETECTED 02/28/21 14:05 Nasal Parainfluen 4 PCR NOT DETECTED 02/28/21 14:05 Nasal RSV (PCR) NOT DETECTED 02/28/21 14:05 Nasal Screen MRSA (PCR) NEGATIVE (NEGATIVE) 03/01/21 22:00 Nasal B.pertussis DNA PCR NOT DETECTED 02/28/21 14:05 Nasal C.pneumoniae (PCR) NOT DETECTED 02/28/21 14:05 Gregory Human Metapneumo PCR NOT DETECTED 02/28/21 14:05 Nasal M.pneumoniae (PCR) NOT DETECTED 02/28/21 14:05 Nasal SARS-CoV-2 (PCR) NOT DETECTED 02/28/21 14:05 Stl C. diff Tox B Gene NEGATIVE (NEGATIVE) 03/03/21 00:30 Salicylates < 6.0 mg/dL 02/28/21 12:34 Urine Opiates Screen NEGATIVE (NEGATIVE) 02/28/21 13:03 Ur Oxycodone Screen NEGATIVE (NEGATIVE) 02/28/21 13:03 Urine Methadone Screen NEGATIVE (NEGATIVE) 02/28/21 13:03 Ur Propoxyphene Screen NEGATIVE (NEGATIVE) 02/28/21 13:03 Acetaminophen < 10 ug/mL (10-30) L 02/28/21 12:34 Ur Barbiturates Screen NEGATIVE (NEGATIVE) 02/28/21 13:03 Ur Tricyclics Screen NEGATIVE (NEGATIVE) 02/28/21 13:03 Ur Phencyclidine Scrn NEGATIVE (NEGATIVE) 02/28/21 13:03 Ur Amphetamine Screen NEGATIVE (NEGATIVE) 02/28/21 13:03 U Methamphetamines Scrn NEGATIVE (NEGATIVE) 02/28/21 13:03 U Benzodiazepines Scrn NEGATIVE (NEGATIVE) 02/28/21 13:03 Urine Cocaine Screen NEGATIVE (NEGATIVE) 02/28/21 13:03 U Cannabinoids Screen NEGATIVE (NEGATIVE) 02/28/21 13:03 Ethyl Alcohol < 5.0 mg/dL 02/28/21 12:34 Blood Type A POSITIVE 03/19/21 08:10 Antibody Screen NEGATIVE 03/19/21 08:10 Crossmatch IS Only See Detail 03/19/21 08:10 - Procedures Procedures: Procedures DRAINAGE OF PERITONEAL CAVITY, PERCUTANEOUS APPROACH, DIAGN (12/19/15) TRANSFUSE NONAUT RED BLOOD CELLS IN PERIPH VEIN, PERC (12/19/15) Sepsis Event Note (H) - Evaluation Possible source of Sepsis: positive: Genitourinary, Skin/soft tissue ABX Reporting Has patient been on IV antibiotics over the past 48 hours?: No Current Medications - Current Medications Current Medications: Active Medications Diltiazem HCl (Diltiazem Cd 120 Mg Capsule) 120 mg PO DAILY [facility] Last Admin: 03/22/21 08:30 Dose: 120 mg Documented by: Ferrous Gluconate (Ferrous Gluconate 324 Mg Tablet) 324 mg PO DAILYWM [facility] Last Admin: 03/22/21 08:30 Dose: 324 mg Documented by: Furosemide (Furosemide 20 Mg Tablet) 20 mg PO DAILY [facility] Last Admin: 03/22/21 08:31 Dose: 20 mg Documented by: Lactulose (Lactulose 10 Gm /15 Ml Udc) 10 gm PO DAILY [facility] Last Admin: 03/22/21 08:31 Dose: 10 gm Documented by: Morphine Sulfate (Morphine 2 Mg/Ml Carpuject) 2 mg IVP Q2HR PRN PRN Reason: PAIN Last Admin: 03/05/21 03:27 Dose: 2 mg Documented by: Multi-Ingredient Ointment (Zinc Oxide 20% Oint 30 Gm Tube) 1 applic TOP PRN PRN PRN Reason: Skin Care Last Admin: 03/07/21 16:32 Dose: 1 applic Documented by: Ondansetron HCl (Ondansetron 4 Mg/2 Ml Vial) 4 mg IVP Q6HR PRN PRN Reason: Nausea / Vomiting Pantoprazole Sodium (Pantoprazole 40 Mg Tablet) 40 mg PO QDAC [facility] Last Admin: 03/22/21 05:53 Dose: 40 mg Documented by: Multivit/Folic Acid/Iron ( Vitamin Tablet) 1 tab PO DAILYWM [facility] Last Admin: 03/22/21 08:30 Dose: 1 tab Documented by: Propranolol HCl (Propranolol 10 Mg Tablet) 10 mg PO BID [facility] Last Admin: 03/22/21 08:31 Dose: 10 mg Documented by: Saccharomyces Boulardii (Saccharomyces Boulardii 250 Mg Capsule) 250 mg PO DAILY [facility] Last Admin: 03/22/21 08:29 Dose: 250 mg Documented by: Sodium Chloride (Sodium Chloride Flush 0.9% 10 Ml Syringe) 10 ml IVP PRN PRN PRN Reason: NEEDED PER PROVIDER ORDERS Last Admin: 03/05/21 06:07 Dose: 10 ml Documented by: Sodium Chloride (Sodium Chloride Flush 0.9% 10 Ml Syringe) 10 ml IVP 0100,0900,1700 [facility] Last Admin: 03/22/21 08:32 Dose: 10 ml Documented by: Spironolactone (Spironolactone 25 Mg Tablet) 25 mg PO DAILY [facility] Last Admin: 03/22/21 08:31 Dose: 25 mg Documented by: Tamsulosin HCl (Tamsulosin 0.4 Mg Capsule) 0.4 mg PO DAILY [facility] Last Admin: 03/22/21 08:30 Dose: 0.4 mg Documented by: Thiamine HCl (Thiamine 100 Mg Tablet) 100 mg PO DAILY [facility] Last Admin: 03/22/21 08:31 Dose: 100 mg Documented by: Zinc Oxide (Cod Liver Oil/Zinc Oxide 113 Gm Tube) 113 gm TOP PRN PRN PRN Reason: Skin Care Last Admin: 03/08/21 14:54 Dose: 1 applic Documented by: Furosemide [Lasix] 20 mg PO DAILY 07/31/20 Propranolol [Inderal] 10 mg PO BID 07/31/20 Spironolactone [Aldactone] 25 mg PO DAILY 07/31/20
[2021-03-22] MEDS: ZINC OXIDE 20% OINT 30 GM TUBE TOP PRN (11:40)
[2021-03-23] MEDS: SODIUM CHLORIDE FLUSH 0.9% 10 ML SYRINGE IVP SCH ×4 (00:25→22:53)
[2021-03-23 04:47] LABS: BASOPHILS % (AUTO) 0.6 %; EOSINOPHILS # (AUTO) 0.2 10^3/uL (0.0-0.7); EOSINOPHILS % (AUTO) 2.4 %; HCT - HEMATOCRIT 25.5 % (42.0-52.0); LYMPHOCYTES # (AUTO) 0.8 10^3/uL (1.5-3.5); LYMPHOCYTES % (AUTO) 10.8 %; MEAN CORPUSCULAR HEMOGLOBIN 25.6 pg (27.0-31.0); MEAN CORPUSCULAR HGB CONC 31.4 g/dL (32.0-36.0); MEAN CORPUSCULAR VOLUME 81.7 fL (80.0-94.0); MEAN PLATELET VOLUME 10.7 fL (7.4-11.4); MONOCYTES % (AUTO) 14.1 %; NEUTROPHILS % (AUTO) 71.5 %; PLT - PLATELET COUNT 122 10^3/uL (130-450); RED BLOOD COUNT 3.12 10^6/uL (4.70-6.10); RED CELL DISTRIBUTION WIDTH 23.3 % (12.0-15.0); WHITE BLOOD COUNT 6.9 x10^3/uL (4.8-10.8)
[2021-03-23 04:53] LABS: SLIDE REVIEW? Indicated
[2021-03-23 04:58] LABS: CALCIUM 8.4 mg/dL (8.5-10.3); CREATININE 0.9 mg/dL (0.6-1.2); POTASSIUM 3.7 mmol/L (3.5-5.0)
[2021-03-23 05:38] LABS: PLATELET ESTIMATE, MANUAL DECREASED (<130,000) (NORMAL)
[2021-03-23] MEDS: PANTOPRAZOLE 40 MG TABLET PO SCH (06:37)
[2021-03-23] MEDS: PRENATAL VITAMIN TABLET PO SCH (08:28)
[2021-03-23] MEDS: LACTULOSE 10 GM /15 ML UDC PO SCH (08:28)
[2021-03-23] MEDS: SPIRONOLACTONE 25 MG TABLET PO SCH (08:29)
[2021-03-23] MEDS: THIAMINE 100 MG TABLET PO SCH (08:29)
[2021-03-23] MEDS: TAMSULOSIN 0.4 MG CAPSULE PO SCH (08:29)
[2021-03-23] MEDS: SACCHAROMYCES BOULARDII 250 MG CAPSULE PO SCH (08:29)
[2021-03-23] MEDS: FUROSEMIDE 20 MG TABLET PO SCH (08:29)
[2021-03-23] MEDS: diltiaZEM CD 120 MG CAPSULE PO SCH (08:29)
[2021-03-23] MEDS: FERROUS GLUCONATE 324 MG TABLET PO SCH (08:42)
--- NOTE | 2021-03-23 11:18 | PROVIDER PROGRESS NOTE ---
Assessment/Plan - Problem List (1) Anemia Assessment/Plan: pt's HGB is slightly reduced, could be lab variation, continue CBC lab monitor daily, otherwise pt is stable, and today pt walk with [employer] [place] at hallway. pt is medical cleared for replacement. - Current Meds Current Meds: Current Medications Generic Name Dose Route Start Last Admin Trade Name Freq PRN Reason Stop Dose Admin Diltiazem HCl 120 mg 03/07/21 11:00 03/23/21 08:29 Diltiazem Cd 120 Mg Capsule PO 120 mg DAILY TRACI Administration Ferrous Gluconate 324 mg 03/09/21 09:00 03/23/21 08:42 Ferrous Gluconate 324 Mg Tablet PO 324 mg DAILYWM TRACI Administration Furosemide 20 mg 03/14/21 09:00 03/23/21 08:29 Furosemide 20 Mg Tablet PO 20 mg DAILY TRACI Administration Lactulose 10 gm 03/06/21 09:00 03/23/21 08:28 Lactulose 10 Gm /15 Ml Udc PO 10 gm DAILY TRACI Administration Morphine Sulfate 2 mg 03/03/21 00:20 03/05/21 03:27 Morphine 2 Mg/Ml Carpuject IVP 2 mg Q2HR PRN Administration PAIN Multi-Ingredient Ointment 1 applic 03/02/21 03:51 03/22/21 11:40 Zinc Oxide 20% Oint 30 Gm Tube TOP 1 applic PRN PRN Administration Skin Care Pantoprazole Sodium 40 mg 03/07/21 07:00 03/23/21 06:37 Pantoprazole 40 Mg Tablet PO 40 mg QDAC TRACI Administration Multivit/Folic Acid/Iron 1 tab 03/05/21 12:00 03/23/21 08:28 Vitamin Tablet PO 1 tab DAILYWM TRACI Administration Propranolol HCl 10 mg 03/14/21 09:08 03/22/21 20:18 Propranolol 10 Mg Tablet PO 10 mg BID TRACI Administration Saccharomyces Boulardii 250 mg 03/11/21 09:00 03/23/21 08:29 Saccharomyces Boulardii 250 Mg Capsule PO 250 mg DAILY TRACI Administration Sodium Chloride 10 ml 03/01/21 21:15 03/05/21 06:07 Sodium Chloride Flush 0.9% 10 Ml Syringe IVP 10 ml PRN PRN Administration NEEDED PER PROVIDER ORDERS Sodium Chloride 10 ml 03/02/21 01:00 03/23/21 08:30 Sodium Chloride Flush 0.9% 10 Ml Syringe IVP 10 ml 0100,0900,1700 TRACI Administration Spironolactone 25 mg 03/14/21 09:00 03/23/21 08:29 Spironolactone 25 Mg Tablet PO 25 mg DAILY TRACI Administration Tamsulosin HCl 0.4 mg 03/09/21 09:00 03/23/21 08:29 Tamsulosin 0.4 Mg Capsule PO 0.4 mg DAILY TRACI Administration Thiamine HCl 100 mg 03/05/21 12:00 03/23/21 08:29 Thiamine 100 Mg Tablet PO 100 mg DAILY TRACI Administration Zinc Oxide 113 gm 03/01/21 22:30 03/08/21 14:54 Cod Liver Oil/Zinc Oxide 113 Gm Tube TOP 1 applic PRN PRN Administration Skin Care - Lab Result Fish Bone Diagrams: 03/23/21 04:31 03/23/21 04:31 - Additional Planning My Orders: My Active Orders 03/24/21 05:00 CBC - COMP BLD CT W/AUTO DIFF [HEME] DAILYLAB Subjective - Subjective Patient Reports: Feeling Better Objective Vital Signs: Vital Signs - 24 hr 03/22/21 03/22/21 03/22/21 11:42 16:18 20:15 Temperature 36.7 C 36.6 C Heart Rate [ 89 78 Brachial] Heart Rate [ 81 Radial] Respiratory 20 20 Rate Blood Pressure [Left Brachial artery] Blood Pressure 109/62 111/57 L 126/59 L [Right Brachial artery] O2 Saturation 94 93 03/23/21 03/23/21 00:20 08:00 Temperature 37.8 C 36.4 C L Heart Rate [ 81 Brachial] Heart Rate [ 87 Radial] Respiratory 18 20 Rate Blood Pressure 110/54 L [Left Brachial artery] Blood Pressure 134/65 H [Right Brachial artery] O2 Saturation 94 94 Oxygen O2 Source [With Activity] Room air O2 Source Room air I&O (Last 24 Hrs): Intake and Output Totals x24h 03/21/21 03/22/21 03/23/21 23:59 23:59 23:59 Intake Total 728 980 916 Output Total 6604 7438 7006 Balance -1022 -1345 -159 General: Alert, Oriented x3, Cooperative, No acute distress HEENT: Atraumatic Neck: Supple Lymphatic: no adenopathy Neuro: Alert, Non Focal, Oriented Times 3 Cardiovascular: Regular rate, Normal S1, Normal S2 Respiratory: Chest non-tender, No respiratory distress Abdomen: Normal bowel sounds, Soft, No tenderness Extremities: Normal pulses - Results Results: Laboratory Results WBC 6.9 x10^3/uL (4.8-10.8) 03/23/21 04:31 RBC 3.12 10^6/uL (4.70-6.10) L 03/23/21 04:31 Hgb 8.0 g/dL (14.0-18.0) L 03/23/21 04:31 Hct 25.5 % (42.0-52.0) L 03/23/21 04:31 MCV 81.7 fL (80.0-94.0) 03/23/21 04:31 MCH 25.6 pg (27.0-31.0) L 03/23/21 04:31 MCHC 31.4 g/dL (32.0-36.0) L 03/23/21 04:31 RDW 23.3 % (12.0-15.0) H 03/23/21 04:31 Plt Count 122 10^3/uL (130-450) L 03/23/21 04:31 MPV 10.7 fL (7.4-11.4) 03/23/21 04:31 Reticulocyte % (Auto) 2.31 % (0.5-2.3) H 03/09/21 05:41 Neut # (Auto) 5.0 10^3/uL (1.5-6.6) 03/23/21 04:31 Lymph # (Auto) 0.8 10^3/uL (1.5-3.5) L 03/23/21 04:31 [place] # (Auto) 1.0 10^3/uL (0.0-1.0) 03/23/21 04:31 Eos # (Auto) 0.2 10^3/uL (0.0-0.7) 03/23/21 04:31 Baso # (Auto) 0.0 10^3/uL (0.0-0.1) 03/23/21 04:31 Absolute Nucleated RBC 0.00 x10^3/uL 03/23/21 04:31 Total Counted 100 03/08/21 04:09 Band Neuts % (Manual) Not Reportable 03/09/21 05:41 Abnorm Lymph % (Manual) Not Reportable 03/09/21 05:41 Nucleated RBC % 0.0 /100WBC 03/23/21 04:31 Neutrophils # (Manual) Not Reportable 03/09/21 05:41 Lymphocytes # (Manual) Not Reportable 03/09/21 05:41 Monocytes # (Manual) Not Reportable 03/09/21 05:41 Eosinophils # (Manual) Not Reportable 03/09/21 05:41 Basophils # (Manual) Not Reportable 03/09/21 05:41 Differential Comment MANUAL=AUTO DIFF 03/09/21 05:41 Manual Slide Review Indicated 03/23/21 04:31 WBC Morphology NORMAL APPEARANCE (NORMAL) 03/21/21 05:34 Platelet Estimate DECREASED (<130,000) (NORMAL) 03/23/21 04:31 Platelet Morphology NORMAL APPEARANCE (NORMAL) 03/22/21 05:30 RBC Morph Micro Appear 2+ ANISOCYTOSIS (NORMAL) 1+ HYPOCHROMASIA (NORMAL) 1+ OVALOCYTES (NORMAL) 03/23/21 04:31 RBC Morph Micro Appear 2+ ANISOCYTOSIS (NORMAL) 1+ HYPOCHROMASIA (NORMAL) 1+ OVALOCYTES (NORMAL) 03/23/21 04:31 RBC Morph Micro Appear 2+ ANISOCYTOSIS (NORMAL) 1+ HYPOCHROMASIA (NORMAL) 1+ OVALOCYTES (NORMAL) 03/23/21 04:31 Absolute Retic 0.073 10^6/uL (0.020-0.110) 03/09/21 05:41 PT 16.3 secs (9.9-12.6) H 02/28/21 12:34 INR 1.5 (0.8-1.2) H 02/28/21 12:34 APTT 30.2 secs (24.9-33.3) 02/28/21 12:34 Bld Gas Analysis Time 0 02/28/21 23:15 Sample Site RIGHT RADIAL 02/28/21 23:15 ABG pH 7.41 (7.35-7.45) 02/28/21 23:15 ABG pCO2 20 mmHg (34-45) L* 02/28/21 23:15 ABG pO2 89 mmHg (80-100) 02/28/21 23:15 ABG HCO3 12.5 mmol/L (22.0-26.0) L 02/28/21 23:15 ABG Total CO2 13.1 MMOL/L (21.0-29.0) L 02/28/21 23:15 ABG O2 Saturation 96 % (94-98) 02/28/21 23:15 ABG Base Excess -10.5 mmol/L (-2.0-3.0) L 02/28/21 23:15 Thanh Test POSITIVE 02/28/21 23:15 VBG pH 7.396 (7.31-7.41) 03/02/21 16:45 VBG pCO2 19.0 mmHg (41-51) L 02/28/21 22:02 VBG pO2 75.4 mmHg (25-47) H 02/28/21 22:02 VBG HCO3 11.7 mmol/L (23-28) L 02/28/21 22:02 VBG Total CO2 12.3 mmol/L (24-29) L 02/28/21 22:02 VBG O2 Saturation 93.4 % (60-80) H 02/28/21 22:02 VBG Base Excess -11.0 mmol/L (-2 - +2) L 02/28/21 22:02 Ionized Calcium 1.05 mmol/L (1.15-1.33) L 03/02/21 16:45 O2 Delivery Device NON REBREATHER MASK 02/28/21 23:15 FiO2 21.00 02/28/21 23:15 Sodium 137 mmol/L (135-145) 03/23/21 04:31 Potassium 3.7 mmol/L (3.5-5.0) 03/23/21 04:31 Chloride 101 mmol/L (101-111) 03/23/21 04:31 Carbon Dioxide 27 mmol/L (21-32) 03/23/21 04:31 Anion Gap 9.0 (6-13) 03/23/21 04:31 BUN 14 mg/dL (6-20) 03/23/21 04:31 Creatinine 0.9 mg/dL (0.6-1.2) 03/23/21 04:31 Estimated GFR (MDRD) 83 (>89) L 03/23/21 04:31 Glucose 105 mg/dL (70-100) H 03/23/21 04:31 POC Whole Bld Glucose 134 mg/dL (70 - 100) H 02/28/21 12:27 Lactic Acid 2.5 mmol/L (0.5-2.2) H 02/28/21 21:44 Calcium 8.4 mg/dL (8.5-10.3) L 03/23/21 04:31 Phosphorus 3.4 mg/dL (2.5-4.6) 03/09/21 05:41 Magnesium 1.9 mg/dL (1.7-2.8) 03/08/21 04:09 Iron 18 ug/dL (45-182) L 03/09/21 05:41 TIBC 193 ug/dL (250-450) L 03/09/21 05:41 % Saturation 9 % (20-50) L 03/09/21 05:41 Transferrin 138 mg/dL (180-329) L 03/09/21 05:41 Ferritin 110.3 ng/mL (23.9-336.2) 03/09/21 05:41 Total Bilirubin 2.7 mg/dL (0.2-1.0) H 03/05/21 04:48 AST 19 IU/L (10-42) 03/05/21 04:48 ALT 15 IU/L (10-60) 03/05/21 04:48 Alkaline Phosphatase 100 IU/L (42-121) 03/05/21 04:48 Ammonia 22.0 umol/L (7-35) 03/07/21 11:55 Lactate Dehydrogenase 135 IU/L (91-225) 03/09/21 05:41 Total Creatine Kinase 36 IU/L (22-269) 02/28/21 12:34 Troponin I High Sens 17.5 ng/L (2.3-19.7) 03/03/21 16:42 B-Natriuretic Peptide 313 pg/mL (5-100) H 03/01/21 02:39 Total Protein 6.0 g/dL (6.7-8.2) L 03/05/21 04:48 Albumin 2.1 g/dL (3.2-5.5) L 03/05/21 04:48 Globulin 3.9 g/dL (2.1-4.2) 03/05/21 04:48 Albumin/Globulin Ratio 0.5 (1.0-2.2) L 03/05/21 04:48 Lipase 251 U/L (22-51) H 02/28/21 21:44 Vitamin B12 1216 pg/mL (180-914) H 03/09/21 05:41 Folate 32.00 ng/mL (5.90 - >24.8) 03/09/21 05:41 TSH 2.35 uIU/mL (0.34-5.60) 02/28/21 12:34 Free T4 0.69 ng/dL (0.58-1.64) 02/28/21 12:34 Urine Color DARK YELLOW 02/28/21 13:03 Urine Clarity CLOUDY (CLEAR) 02/28/21 13:03 Urine pH 6.0 PH (5.0-7.5) 02/28/21 13:03 Ur Specific [place] 1.015 (1.002-1.030) 02/28/21 13:03 Urine Protein NEGATIVE mg/dL (NEGATIVE) 02/28/21 13:03 Urine Glucose (UA) NEGATIVE mg/dL (NEGATIVE) 02/28/21 13:03 Urine Ketones NEGATIVE mg/dL (NEGATIVE) 02/28/21 13:03 Urine Occult Blood LARGE (NEGATIVE) H 02/28/21 13:03 Urine Nitrite NEGATIVE (NEGATIVE) 02/28/21 13:03 Urine Bilirubin NEGATIVE (NEGATIVE) 02/28/21 13:03 Urine Urobilinogen 1 (NORMAL) E.U./dL (NORMAL) 02/28/21 13:03 Ur Leukocyte Esterase MODERATE (NEGATIVE) H 02/28/21 13:03 Urine RBC 6-10 /HPF (0-5) H 02/28/21 13:03 Urine WBC >25 /HPF (0-3) H 02/28/21 13:03 Ur Squamous Epith Cells NONE SEEN (<= Few) 02/28/21 13:03 Urine Bacteria Few /HPF (None Seen) 02/28/21 13:03 Ur Microscopic Review INDICATED 02/28/21 13:03 Urine Culture Comments INDICATED 02/28/21 13:03 Nasal Adenovirus (PCR) NOT DETECTED 02/28/21 14:05 Nasal B. parapertussis DNA (PCR) NOT DETECTED 02/28/21 14:05 Nasal Coronavir 229E PCR NOT DETECTED 02/28/21 14:05 Nasal Coronavir HKU1 PCR NOT DETECTED 02/28/21 14:05 Nasal Coronavir NL63 PCR NOT DETECTED 02/28/21 14:05 Nasal Coronavir OC43 PCR NOT DETECTED 02/28/21 14:05 Nasal Enterovir/Rhinovir PCR NOT DETECTED 02/28/21 14:05 Nasal Influenza B PCR NOT DETECTED 02/28/21 14:05 Nasal Influenza A PCR NOT DETECTED 02/28/21 14:05 Nasal Parainfluen 1 PCR NOT DETECTED 02/28/21 14:05 Nasal Parainfluen 2 PCR NOT DETECTED 02/28/21 14:05 Nasal Parainfluen 3 PCR NOT DETECTED 02/28/21 14:05 Nasal Parainfluen 4 PCR NOT DETECTED 02/28/21 14:05 Nasal RSV (PCR) NOT DETECTED 02/28/21 14:05 Nasal Screen MRSA (PCR) NEGATIVE (NEGATIVE) 03/01/21 22:00 Nasal B.pertussis DNA PCR NOT DETECTED 02/28/21 14:05 Nasal C.pneumoniae (PCR) NOT DETECTED 02/28/21 14:05 Gregory Human Metapneumo PCR NOT DETECTED 02/28/21 14:05 Nasal M.pneumoniae (PCR) NOT DETECTED 02/28/21 14:05 Nasal SARS-CoV-2 (PCR) NOT DETECTED 02/28/21 14:05 Stl C. diff Tox B Gene NEGATIVE (NEGATIVE) 03/03/21 00:30 Salicylates < 6.0 mg/dL 02/28/21 12:34 Urine Opiates Screen NEGATIVE (NEGATIVE) 02/28/21 13:03 Ur Oxycodone Screen NEGATIVE (NEGATIVE) 02/28/21 13:03 Urine Methadone Screen NEGATIVE (NEGATIVE) 02/28/21 13:03 Ur Propoxyphene Screen NEGATIVE (NEGATIVE) 02/28/21 13:03 Acetaminophen < 10 ug/mL (10-30) L 02/28/21 12:34 Ur Barbiturates Screen NEGATIVE (NEGATIVE) 02/28/21 13:03 Ur Tricyclics Screen NEGATIVE (NEGATIVE) 02/28/21 13:03 Ur Phencyclidine Scrn NEGATIVE (NEGATIVE) 02/28/21 13:03 Ur Amphetamine Screen NEGATIVE (NEGATIVE) 02/28/21 13:03 U Methamphetamines Scrn NEGATIVE (NEGATIVE) 02/28/21 13:03 U Benzodiazepines Scrn NEGATIVE (NEGATIVE) 02/28/21 13:03 Urine Cocaine Screen NEGATIVE (NEGATIVE) 02/28/21 13:03 U Cannabinoids Screen NEGATIVE (NEGATIVE) 02/28/21 13:03 Ethyl Alcohol < 5.0 mg/dL 02/28/21 12:34 Blood Type A POSITIVE 03/19/21 08:10 Antibody Screen NEGATIVE 03/19/21 08:10 Crossmatch IS Only See Detail 03/19/21 08:10 - Procedures Procedures: Procedures DRAINAGE OF PERITONEAL CAVITY, PERCUTANEOUS APPROACH, DIAGN (12/19/15) TRANSFUSE NONAUT RED BLOOD CELLS IN PERIPH VEIN, PERC (12/19/15) Sepsis Event Note (H) - Evaluation Possible source of Sepsis: positive: Genitourinary, Skin/soft tissue ABX Reporting Has patient been on IV antibiotics over the past 48 hours?: No Current Medications - Current Medications Current Medications: Active Medications Diltiazem HCl (Diltiazem Cd 120 Mg Capsule) 120 mg PO DAILY [facility] Last Admin: 03/23/21 08:29 Dose: 120 mg Documented by: Ferrous Gluconate (Ferrous Gluconate 324 Mg Tablet) 324 mg PO DAILYWM [facility] Last Admin: 03/23/21 08:42 Dose: 324 mg Documented by: Furosemide (Furosemide 20 Mg Tablet) 20 mg PO DAILY [facility] Last Admin: 03/23/21 08:29 Dose: 20 mg Documented by: Lactulose (Lactulose 10 Gm /15 Ml Udc) 10 gm PO DAILY [facility] Last Admin: 03/23/21 08:28 Dose: 10 gm Documented by: Morphine Sulfate (Morphine 2 Mg/Ml Carpuject) 2 mg IVP Q2HR PRN PRN Reason: PAIN Last Admin: 03/05/21 03:27 Dose: 2 mg Documented by: Multi-Ingredient Ointment (Zinc Oxide 20% Oint 30 Gm Tube) 1 applic TOP PRN PRN PRN Reason: Skin Care Last Admin: 03/22/21 11:40 Dose: 1 applic Documented by: Ondansetron HCl (Ondansetron 4 Mg/2 Ml Vial) 4 mg IVP Q6HR PRN PRN Reason: Nausea / Vomiting Pantoprazole Sodium (Pantoprazole 40 Mg Tablet) 40 mg PO QDAC [facility] Last Admin: 03/23/21 06:37 Dose: 40 mg Documented by: Multivit/Folic Acid/Iron ( Vitamin Tablet) 1 tab PO DAILYWM [facility] Last Admin: 03/23/21 08:28 Dose: 1 tab Documented by: Propranolol HCl (Propranolol 10 Mg Tablet) 10 mg PO BID [facility] Last Admin: 03/22/21 20:18 Dose: 10 mg Documented by: Saccharomyces Boulardii (Saccharomyces Boulardii 250 Mg Capsule) 250 mg PO DAILY [facility] Last Admin: 03/23/21 08:29 Dose: 250 mg Documented by: Sodium Chloride (Sodium Chloride Flush 0.9% 10 Ml Syringe) 10 ml IVP PRN PRN PRN Reason: NEEDED PER PROVIDER ORDERS Last Admin: 03/05/21 06:07 Dose: 10 ml Documented by: Sodium Chloride (Sodium Chloride Flush 0.9% 10 Ml Syringe) 10 ml IVP 0100,0900,1700 [facility] Last Admin: 03/23/21 08:30 Dose: 10 ml Documented by: Spironolactone (Spironolactone 25 Mg Tablet) 25 mg PO DAILY [facility] Last Admin: 03/23/21 08:29 Dose: 25 mg Documented by: Tamsulosin HCl (Tamsulosin 0.4 Mg Capsule) 0.4 mg PO DAILY [facility] Last Admin: 03/23/21 08:29 Dose: 0.4 mg Documented by: Thiamine HCl (Thiamine 100 Mg Tablet) 100 mg PO DAILY [facility] Last Admin: 03/23/21 08:29 Dose: 100 mg Documented by: Zinc Oxide (Cod Liver Oil/Zinc Oxide 113 Gm Tube) 113 gm TOP PRN PRN PRN Reason: Skin Care Last Admin: 03/08/21 14:54 Dose: 1 applic Documented by: Furosemide [Lasix] 20 mg PO DAILY 07/31/20 Propranolol [Inderal] 10 mg PO BID 07/31/20 Spironolactone [Aldactone] 25 mg PO DAILY 07/31/20
[2021-03-23] MEDS: PROPRANOLOL 10 MG TABLET PO SCH (22:53)
[2021-03-24 06:13] LABS: BASOPHILS % (AUTO) 0.6 %; EOSINOPHILS # (AUTO) 0.2 10^3/uL (0.0-0.7); EOSINOPHILS % (AUTO) 2.7 %; HCT - HEMATOCRIT 26.4 % (42.0-52.0); LYMPHOCYTES # (AUTO) 0.7 10^3/uL (1.5-3.5); LYMPHOCYTES % (AUTO) 9.5 %; MEAN CORPUSCULAR HEMOGLOBIN 24.7 pg (27.0-31.0); MEAN CORPUSCULAR HGB CONC 30.3 g/dL (32.0-36.0); MEAN CORPUSCULAR VOLUME 81.5 fL (80.0-94.0); MEAN PLATELET VOLUME 10.5 fL (7.4-11.4); MONOCYTES % (AUTO) 13.9 %; NEUTROPHILS # (AUTO) 5.1 10^3/uL (1.5-6.6); NEUTROPHILS % (AUTO) 72.6 %; PLT - PLATELET COUNT 162 10^3/uL (130-450); RED BLOOD COUNT 3.24 10^6/uL (4.70-6.10); RED CELL DISTRIBUTION WIDTH 22.9 % (12.0-15.0)
[2021-03-24 06:23] LABS: SLIDE REVIEW? Indicated
[2021-03-24 06:39] LABS: PLATELET ESTIMATE, MANUAL NORMAL (130-450,000) (NORMAL)
[2021-03-24] MEDS: PANTOPRAZOLE 40 MG TABLET PO SCH (06:44)
[2021-03-24] MEDS: PRENATAL VITAMIN TABLET PO SCH (09:52)
[2021-03-24] MEDS: SPIRONOLACTONE 25 MG TABLET PO SCH (09:52)
[2021-03-24] MEDS: FERROUS GLUCONATE 324 MG TABLET PO SCH (09:52)
[2021-03-24] MEDS: LACTULOSE 10 GM /15 ML UDC PO SCH (09:52)
[2021-03-24] MEDS: SODIUM CHLORIDE FLUSH 0.9% 10 ML SYRINGE IVP SCH ×2 (09:53→18:11)
[2021-03-24] MEDS: PROPRANOLOL 10 MG TABLET PO SCH ×2 (09:53→21:24)
[2021-03-24] MEDS: diltiaZEM CD 120 MG CAPSULE PO SCH (09:53)
[2021-03-24] MEDS: THIAMINE 100 MG TABLET PO SCH (09:53)
[2021-03-24] MEDS: SACCHAROMYCES BOULARDII 250 MG CAPSULE PO SCH (09:53)
[2021-03-24] MEDS: FUROSEMIDE 20 MG TABLET PO SCH (09:53)
[2021-03-24] MEDS: TAMSULOSIN 0.4 MG CAPSULE PO SCH (09:53)
--- NOTE | 2021-03-24 11:27 | PROVIDER PROGRESS NOTE ---
Assessment/Plan - Problem List (1) Anemia Assessment/Plan: pt's HGB is stable. Hemodynamically pt is stable as well. 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 pt is medical cleared for replacement. Continue consult to social work for disposition planning - Current Meds Current Meds: Current Medications Generic Name Dose Route Start Last Admin Trade Name Freq PRN Reason Stop Dose Admin Diltiazem HCl 120 mg 03/07/21 11:00 03/24/21 09:53 Diltiazem Cd 120 Mg Capsule PO 120 mg DAILY TRACI Administration Ferrous Gluconate 324 mg 03/09/21 09:00 03/24/21 09:52 Ferrous Gluconate 324 Mg Tablet PO 324 mg DAILYWM TRACI Administration Furosemide 20 mg 03/14/21 09:00 03/24/21 09:53 Furosemide 20 Mg Tablet PO 20 mg DAILY TRACI Administration Lactulose 10 gm 03/06/21 09:00 03/24/21 09:52 Lactulose 10 Gm /15 Ml Udc PO 10 gm DAILY TRACI Administration Morphine Sulfate 2 mg 03/03/21 00:20 03/05/21 03:27 Morphine 2 Mg/Ml Carpuject IVP 2 mg Q2HR PRN Administration PAIN Multi-Ingredient Ointment 1 applic 03/02/21 03:51 03/22/21 11:40 Zinc Oxide 20% Oint 30 Gm Tube TOP 1 applic PRN PRN Administration Skin Care Pantoprazole Sodium 40 mg 03/07/21 07:00 03/24/21 06:44 Pantoprazole 40 Mg Tablet PO 40 mg QDAC TRACI Administration Multivit/Folic Acid/Iron 1 tab 03/05/21 12:00 03/24/21 09:52 Vitamin Tablet PO 1 tab DAILYWM TRACI Administration Propranolol HCl 10 mg 03/14/21 09:08 03/24/21 09:53 Propranolol 10 Mg Tablet PO 10 mg BID TRACI Administration Saccharomyces Boulardii 250 mg 03/11/21 09:00 03/24/21 09:53 Saccharomyces Boulardii 250 Mg Capsule PO 250 mg DAILY TRACI Administration Sodium Chloride 10 ml 03/01/21 21:15 03/05/21 06:07 Sodium Chloride Flush 0.9% 10 Ml Syringe IVP 10 ml PRN PRN Administration NEEDED PER PROVIDER ORDERS Sodium Chloride 10 ml 03/02/21 01:00 03/24/21 09:53 Sodium Chloride Flush 0.9% 10 Ml Syringe IVP 10 ml 0100,0900,1700 TRACI Administration Spironolactone 25 mg 03/14/21 09:00 03/24/21 09:52 Spironolactone 25 Mg Tablet PO 25 mg DAILY TRACI Administration Tamsulosin HCl 0.4 mg 03/09/21 09:00 03/24/21 09:53 Tamsulosin 0.4 Mg Capsule PO 0.4 mg DAILY TRACI Administration Thiamine HCl 100 mg 03/05/21 12:00 03/24/21 09:53 Thiamine 100 Mg Tablet PO 100 mg DAILY TRACI Administration Zinc Oxide 113 gm 03/01/21 22:30 03/08/21 14:54 Cod Liver Oil/Zinc Oxide 113 Gm Tube TOP 1 applic PRN PRN Administration Skin Care - Lab Result Fish Bone Diagrams: 03/24/21 05:52 03/23/21 04:31 Subjective - Subjective Patient Reports: Feeling Better Objective Vital Signs: Vital Signs - 24 hr 03/23/21 03/24/21 03/24/21 16:00 00:00 08:00 Temperature 37.0 C 37.2 C 37.0 C Heart Rate [ 93 Brachial] Heart Rate [ 92 Monitoring electrodes] Heart Rate [ 86 Radial] Respiratory 24 18 21 Rate Blood Pressure 117/64 122/59 L 106/70 [Right Brachial artery] O2 Saturation 93 94 100 03/24/21 09:57 Temperature 36.7 C Heart Rate [ 96 Brachial] Heart Rate [ Monitoring electrodes] Heart Rate [ 88 Radial] Respiratory 20 Rate Blood Pressure 115/67 [Right Brachial artery] O2 Saturation 96 Oxygen O2 Source [With Activity] Room air O2 Source Room air I&O (Last 24 Hrs): Intake and Output Totals x24h 03/22/21 03/23/21 03/24/21 23:59 23:59 23:59 Intake Total 980 2701 1700 Output Total 2325 2025 1025 Balance -1345 676 675 General: Alert, Oriented x3, Cooperative, No acute distress HEENT: Atraumatic Neck: Supple Lymphatic: no adenopathy Neuro: Alert, Non Focal, Oriented Times 3 Cardiovascular: Regular rate, Normal S1, Normal S2 Respiratory: Chest non-tender, No respiratory distress Abdomen: Normal bowel sounds, Soft Extremities: Normal pulses - Results Results: Laboratory Results WBC 7.0 x10^3/uL (4.8-10.8) 03/24/21 05:52 RBC 3.24 10^6/uL (4.70-6.10) L 03/24/21 05:52 Hgb 8.0 g/dL (14.0-18.0) L 03/24/21 05:52 Hct 26.4 % (42.0-52.0) L 03/24/21 05:52 MCV 81.5 fL (80.0-94.0) 03/24/21 05:52 MCH 24.7 pg (27.0-31.0) L 03/24/21 05:52 MCHC 30.3 g/dL (32.0-36.0) L 03/24/21 05:52 RDW 22.9 % (12.0-15.0) H 03/24/21 05:52 Plt Count 162 10^3/uL (130-450) 03/24/21 05:52 MPV 10.5 fL (7.4-11.4) 03/24/21 05:52 Reticulocyte % (Auto) 2.31 % (0.5-2.3) H 03/09/21 05:41 Neut # (Auto) 5.1 10^3/uL (1.5-6.6) 03/24/21 05:52 Lymph # (Auto) 0.7 10^3/uL (1.5-3.5) L 03/24/21 05:52 Whitman # (Auto) 1.0 10^3/uL (0.0-1.0) 03/24/21 05:52 Eos # (Auto) 0.2 10^3/uL (0.0-0.7) 03/24/21 05:52 Baso # (Auto) 0.0 10^3/uL (0.0-0.1) 03/24/21 05:52 Absolute Nucleated RBC 0.00 x10^3/uL 03/24/21 05:52 Total Counted 100 03/08/21 04:09 Band Neuts % (Manual) Not Reportable 03/09/21 05:41 Abnorm Lymph % (Manual) Not Reportable 03/09/21 05:41 Nucleated RBC % 0.0 /100WBC 03/24/21 05:52 Neutrophils # (Manual) Not Reportable 03/09/21 05:41 Lymphocytes # (Manual) Not Reportable 03/09/21 05:41 Monocytes # (Manual) Not Reportable 03/09/21 05:41 Eosinophils # (Manual) Not Reportable 03/09/21 05:41 Basophils # (Manual) Not Reportable 03/09/21 05:41 Differential Comment MANUAL=AUTO DIFF 03/09/21 05:41 Manual Slide Review Indicated 03/24/21 05:52 WBC Morphology NORMAL APPEARANCE (NORMAL) 03/21/21 05:34 Platelet Estimate NORMAL (130-450,000) (NORMAL) 03/24/21 05:52 Platelet Morphology NORMAL APPEARANCE (NORMAL) 03/22/21 05:30 RBC Morph Micro Appear 2+ ANISOCYTOSIS (NORMAL) 2+ HYPOCHROMASIA (NORMAL) 1+ OVALOCYTES (NORMAL) 03/24/21 05:52 RBC Morph Micro Appear 2+ ANISOCYTOSIS (NORMAL) 2+ HYPOCHROMASIA (NORMAL) 1+ OVALOCYTES (NORMAL) 03/24/21 05:52 RBC Morph Micro Appear 2+ ANISOCYTOSIS (NORMAL) 2+ HYPOCHROMASIA (NORMAL) 1+ OVALOCYTES (NORMAL) 03/24/21 05:52 Absolute Retic 0.073 10^6/uL (0.020-0.110) 03/09/21 05:41 PT 16.3 secs (9.9-12.6) H 02/28/21 12:34 INR 1.5 (0.8-1.2) H 02/28/21 12:34 APTT 30.2 secs (24.9-33.3) 02/28/21 12:34 Bld Gas Analysis Time 2320 02/28/21 23:15 Sample Site RIGHT RADIAL 02/28/21 23:15 ABG pH 7.41 (7.35-7.45) 02/28/21 23:15 ABG pCO2 20 mmHg (34-45) L* 02/28/21 23:15 ABG pO2 89 mmHg (80-100) 02/28/21 23:15 ABG HCO3 12.5 mmol/L (22.0-26.0) L 02/28/21 23:15 ABG Total CO2 13.1 MMOL/L (21.0-29.0) L 02/28/21 23:15 ABG O2 Saturation 96 % (94-98) 02/28/21 23:15 ABG Base Excess -10.5 mmol/L (-2.0-3.0) L 02/28/21 23:15 Thanh Test POSITIVE 02/28/21 23:15 VBG pH 7.396 (7.31-7.41) 03/02/21 16:45 VBG pCO2 19.0 mmHg (41-51) L 02/28/21 22:02 VBG pO2 75.4 mmHg (25-47) H 02/28/21 22:02 VBG HCO3 11.7 mmol/L (23-28) L 02/28/21 22:02 VBG Total CO2 12.3 mmol/L (24-29) L 02/28/21 22:02 VBG O2 Saturation 93.4 % (60-80) H 02/28/21 22:02 VBG Base Excess -11.0 mmol/L (-2 - +2) L 02/28/21 22:02 Ionized Calcium 1.05 mmol/L (1.15-1.33) L 03/02/21 16:45 O2 Delivery Device NON REBREATHER MASK 02/28/21 23:15 FiO2 21.00 02/28/21 23:15 Sodium 137 mmol/L (135-145) 03/23/21 04:31 Potassium 3.7 mmol/L (3.5-5.0) 03/23/21 04:31 Chloride 101 mmol/L (101-111) 03/23/21 04:31 Carbon Dioxide 27 mmol/L (21-32) 03/23/21 04:31 Anion Gap 9.0 (6-13) 03/23/21 04:31 BUN 14 mg/dL (6-20) 03/23/21 04:31 Creatinine 0.9 mg/dL (0.6-1.2) 03/23/21 04:31 Estimated GFR (MDRD) 83 (>89) L 03/23/21 04:31 Glucose 105 mg/dL (70-100) H 03/23/21 04:31 POC Whole Bld Glucose 134 mg/dL (70 - 100) H 02/28/21 12:27 Lactic Acid 2.5 mmol/L (0.5-2.2) H 02/28/21 21:44 Calcium 8.4 mg/dL (8.5-10.3) L 03/23/21 04:31 Phosphorus 3.4 mg/dL (2.5-4.6) 03/09/21 05:41 Magnesium 1.9 mg/dL (1.7-2.8) 03/08/21 04:09 Iron 18 ug/dL (45-182) L 03/09/21 05:41 TIBC 193 ug/dL (250-450) L 03/09/21 05:41 % Saturation 9 % (20-50) L 03/09/21 05:41 Transferrin 138 mg/dL (180-329) L 03/09/21 05:41 Ferritin 110.3 ng/mL (23.9-336.2) 03/09/21 05:41 Total Bilirubin 2.7 mg/dL (0.2-1.0) H 03/05/21 04:48 AST 19 IU/L (10-42) 03/05/21 04:48 ALT 15 IU/L (10-60) 03/05/21 04:48 Alkaline Phosphatase 100 IU/L (42-121) 03/05/21 04:48 Ammonia 22.0 umol/L (7-35) 03/07/21 11:55 Lactate Dehydrogenase 135 IU/L (91-225) 03/09/21 05:41 Total Creatine Kinase 36 IU/L (22-269) 02/28/21 12:34 Troponin I High Sens 17.5 ng/L (2.3-19.7) 03/03/21 16:42 B-Natriuretic Peptide 313 pg/mL (5-100) H 03/01/21 02:39 Total Protein 6.0 g/dL (6.7-8.2) L 03/05/21 04:48 Albumin 2.1 g/dL (3.2-5.5) L 03/05/21 04:48 Globulin 3.9 g/dL (2.1-4.2) 03/05/21 04:48 Albumin/Globulin Ratio 0.5 (1.0-2.2) L 03/05/21 04:48 Lipase 251 U/L (22-51) H 02/28/21 21:44 Vitamin B12 1216 pg/mL (180-914) H 03/09/21 05:41 Folate 32.00 ng/mL (5.90 - >24.8) 03/09/21 05:41 TSH 2.35 uIU/mL (0.34-5.60) 02/28/21 12:34 Free T4 0.69 ng/dL (0.58-1.64) 02/28/21 12:34 Urine Color DARK YELLOW 02/28/21 13:03 Urine Clarity CLOUDY (CLEAR) 02/28/21 13:03 Urine pH 6.0 PH (5.0-7.5) 02/28/21 13:03 Ur Specific [place] 1.015 (1.002-1.030) 02/28/21 13:03 Urine Protein NEGATIVE mg/dL (NEGATIVE) 02/28/21 13:03 Urine Glucose (UA) NEGATIVE mg/dL (NEGATIVE) 02/28/21 13:03 Urine Ketones NEGATIVE mg/dL (NEGATIVE) 02/28/21 13:03 Urine Occult Blood LARGE (NEGATIVE) H 02/28/21 13:03 Urine Nitrite NEGATIVE (NEGATIVE) 02/28/21 13:03 Urine Bilirubin NEGATIVE (NEGATIVE) 02/28/21 13:03 Urine Urobilinogen 1 (NORMAL) E.U./dL (NORMAL) 02/28/21 13:03 Ur Leukocyte Esterase MODERATE (NEGATIVE) H 02/28/21 13:03 Urine RBC 6-10 /HPF (0-5) H 02/28/21 13:03 Urine WBC >25 /HPF (0-3) H 02/28/21 13:03 Ur Squamous Epith Cells NONE SEEN (<= Few) 02/28/21 13:03 Urine Bacteria Few /HPF (None Seen) 02/28/21 13:03 Ur Microscopic Review INDICATED 02/28/21 13:03 Urine Culture Comments INDICATED 02/28/21 13:03 Nasal Adenovirus (PCR) NOT DETECTED 02/28/21 14:05 Nasal B. parapertussis DNA (PCR) NOT DETECTED 02/28/21 14:05 Nasal Coronavir 229E PCR NOT DETECTED 02/28/21 14:05 Nasal Coronavir HKU1 PCR NOT DETECTED 02/28/21 14:05 Nasal Coronavir NL63 PCR NOT DETECTED 02/28/21 14:05 Nasal Coronavir OC43 PCR NOT DETECTED 02/28/21 14:05 Nasal Enterovir/Rhinovir PCR NOT DETECTED 02/28/21 14:05 Nasal Influenza B PCR NOT DETECTED 02/28/21 14:05 Nasal Influenza A PCR NOT DETECTED 02/28/21 14:05 Nasal Parainfluen 1 PCR NOT DETECTED 02/28/21 14:05 Nasal Parainfluen 2 PCR NOT DETECTED 02/28/21 14:05 Nasal Parainfluen 3 PCR NOT DETECTED 02/28/21 14:05 Nasal Parainfluen 4 PCR NOT DETECTED 02/28/21 14:05 Nasal RSV (PCR) NOT DETECTED 02/28/21 14:05 Nasal Screen MRSA (PCR) NEGATIVE (NEGATIVE) 03/01/21 22:00 Nasal B.pertussis DNA PCR NOT DETECTED 02/28/21 14:05 Nasal C.pneumoniae (PCR) NOT DETECTED 02/28/21 14:05 Gregory Human Metapneumo PCR NOT DETECTED 02/28/21 14:05 Nasal M.pneumoniae (PCR) NOT DETECTED 02/28/21 14:05 Nasal SARS-CoV-2 (PCR) NOT DETECTED 02/28/21 14:05 Stl C. diff Tox B Gene NEGATIVE (NEGATIVE) 03/03/21 00:30 Salicylates < 6.0 mg/dL 02/28/21 12:34 Urine Opiates Screen NEGATIVE (NEGATIVE) 02/28/21 13:03 Ur Oxycodone Screen NEGATIVE (NEGATIVE) 02/28/21 13:03 Urine Methadone Screen NEGATIVE (NEGATIVE) 02/28/21 13:03 Ur Propoxyphene Screen NEGATIVE (NEGATIVE) 02/28/21 13:03 Acetaminophen < 10 ug/mL (10-30) L 02/28/21 12:34 Ur Barbiturates Screen NEGATIVE (NEGATIVE) 02/28/21 13:03 Ur Tricyclics Screen NEGATIVE (NEGATIVE) 02/28/21 13:03 Ur Phencyclidine Scrn NEGATIVE (NEGATIVE) 02/28/21 13:03 Ur Amphetamine Screen NEGATIVE (NEGATIVE) 02/28/21 13:03 U Methamphetamines Scrn NEGATIVE (NEGATIVE) 02/28/21 13:03 U Benzodiazepines Scrn NEGATIVE (NEGATIVE) 02/28/21 13:03 Urine Cocaine Screen NEGATIVE (NEGATIVE) 02/28/21 13:03 U Cannabinoids Screen NEGATIVE (NEGATIVE) 02/28/21 13:03 Ethyl Alcohol < 5.0 mg/dL 02/28/21 12:34 Blood Type A POSITIVE 10/03/21 08:10 Antibody Screen NEGATIVE 03/19/21 08:10 Crossmatch IS Only See Detail 03/19/21 08:10 - Procedures Procedures: Procedures DRAINAGE OF PERITONEAL CAVITY, PERCUTANEOUS APPROACH, DIAGN (12/19/15) TRANSFUSE NONAUT RED BLOOD CELLS IN PERIPH VEIN, PERC (12/19/15) Sepsis Event Note (H) - Evaluation Possible source of Sepsis: positive: Genitourinary, Skin/soft tissue ABX Reporting Has patient been on IV antibiotics over the past 48 hours?: No Current Medications - Current Medications Current Medications: Active Medications Diltiazem HCl (Diltiazem Cd 120 Mg Capsule) 120 mg PO DAILY [facility] Last Admin: 03/24/21 09:53 Dose: 120 mg Documented by: Ferrous Gluconate (Ferrous Gluconate 324 Mg Tablet) 324 mg PO DAILYWM [facility] Last Admin: 03/24/21 09:52 Dose: 324 mg Documented by: Furosemide (Furosemide 20 Mg Tablet) 20 mg PO DAILY [facility] Last Admin: 03/24/21 09:53 Dose: 20 mg Documented by: Lactulose (Lactulose 10 Gm /15 Ml Udc) 10 gm PO DAILY [facility] Last Admin: 03/24/21 09:52 Dose: 10 gm Documented by: Morphine Sulfate (Morphine 2 Mg/Ml Carpuject) 2 mg IVP Q2HR PRN PRN Reason: PAIN Last Admin: 03/05/21 03:27 Dose: 2 mg Documented by: Multi-Ingredient Ointment (Zinc Oxide 20% Oint 30 Gm Tube) 1 applic TOP PRN PRN PRN Reason: Skin Care Last Admin: 03/22/21 11:40 Dose: 1 applic Documented by: Ondansetron HCl (Ondansetron 4 Mg/2 Ml Vial) 4 mg IVP Q6HR PRN PRN Reason: Nausea / Vomiting Pantoprazole Sodium (Pantoprazole 40 Mg Tablet) 40 mg PO QDAC [facility] Last Admin: 03/24/21 06:44 Dose: 40 mg Documented by: Multivit/Folic Acid/Iron ( Vitamin Tablet) 1 tab PO DAILYWM [facility] Last Admin: 03/24/21 09:52 Dose: 1 tab Documented by: Propranolol HCl (Propranolol 10 Mg Tablet) 10 mg PO BID [facility] Last Admin: 03/24/21 09:53 Dose: 10 mg Documented by: Saccharomyces Boulardii (Saccharomyces Boulardii 250 Mg Capsule) 250 mg PO DAILY [facility] Last Admin: 03/24/21 09:53 Dose: 250 mg Documented by: Sodium Chloride (Sodium Chloride Flush 0.9% 10 Ml Syringe) 10 ml IVP PRN PRN PRN Reason: NEEDED PER PROVIDER ORDERS Last Admin: 03/05/21 06:07 Dose: 10 ml Documented by: Sodium Chloride (Sodium Chloride Flush 0.9% 10 Ml Syringe) 10 ml IVP 0100,0900,1700 [facility] Last Admin: 03/24/21 09:53 Dose: 10 ml Documented by: Spironolactone (Spironolactone 25 Mg Tablet) 25 mg PO DAILY [facility] Last Admin: 03/24/21 09:52 Dose: 25 mg Documented by: Tamsulosin HCl (Tamsulosin 0.4 Mg Capsule) 0.4 mg PO DAILY [facility] Last Admin: 03/24/21 09:53 Dose: 0.4 mg Documented by: Thiamine HCl (Thiamine 100 Mg Tablet) 100 mg PO DAILY [facility] Last Admin: 03/24/21 09:53 Dose: 100 mg Documented by: Zinc Oxide (Cod Liver Oil/Zinc Oxide 113 Gm Tube) 113 gm TOP PRN PRN PRN Reason: Skin Care Last Admin: 03/08/21 14:54 Dose: 1 applic Documented by: Furosemide [Lasix] 20 mg PO DAILY 07/31/20 Propranolol [Inderal] 10 mg PO BID 07/31/20 Spironolactone [Aldactone] 25 mg PO DAILY 07/31/20
[2021-03-25] MEDS: PANTOPRAZOLE 40 MG TABLET PO SCH (06:23)
[2021-03-25] MEDS: SODIUM CHLORIDE FLUSH 0.9% 10 ML SYRINGE IVP SCH ×3 (06:24→17:17)
[2021-03-25] MEDS: FERROUS GLUCONATE 324 MG TABLET PO SCH (08:08)
[2021-03-25] MEDS: PRENATAL VITAMIN TABLET PO SCH (08:08)
[2021-03-25] MEDS: PROPRANOLOL 10 MG TABLET PO SCH ×2 (08:28→20:59)
[2021-03-25] MEDS: LACTULOSE 10 GM /15 ML UDC PO SCH (08:28)
[2021-03-25] MEDS: SACCHAROMYCES BOULARDII 250 MG CAPSULE PO SCH (08:28)
[2021-03-25] MEDS: diltiaZEM CD 120 MG CAPSULE PO SCH (08:28)
[2021-03-25] MEDS: THIAMINE 100 MG TABLET PO SCH (08:28)
[2021-03-25] MEDS: FUROSEMIDE 20 MG TABLET PO SCH (08:28)
[2021-03-25] MEDS: SPIRONOLACTONE 25 MG TABLET PO SCH (08:28)
[2021-03-25] MEDS: TAMSULOSIN 0.4 MG CAPSULE PO SCH (08:29)
--- NOTE | 2021-03-25 12:02 | PROVIDER PROGRESS NOTE ---
Assessment/Plan - Problem List (1) Anemia Assessment/Plan: HGB is stable. pt is stable. pt is ready for replacement. Continue consult to social work for disposition planning - Current Meds Current Meds: Current Medications Generic Name Dose Route Start Last Admin Trade Name Freq PRN Reason Stop Dose Admin Diltiazem HCl 120 mg 03/07/21 11:00 03/25/21 08:28 Diltiazem Cd 120 Mg Capsule PO 120 mg DAILY [facility] Administration Ferrous Gluconate 324 mg 03/09/21 09:00 03/25/21 08:08 Ferrous Gluconate 324 Mg Tablet PO 324 mg DAILYWM [facility] Administration Furosemide 20 mg 03/14/21 09:00 03/25/21 08:28 Furosemide 20 Mg Tablet PO 20 mg DAILY [facility] Administration Lactulose 10 gm 03/06/21 09:00 03/25/21 08:28 Lactulose 10 Gm /15 Ml Udc PO 10 gm DAILY [facility] Administration Morphine Sulfate 2 mg 03/03/21 00:20 03/05/21 03:27 Morphine 2 Mg/Ml Carpuject IVP 2 mg Q2HR PRN Administration PAIN Multi-Ingredient Ointment 1 applic 03/02/21 03:51 03/22/21 11:40 Zinc Oxide 20% Oint 30 Gm Tube TOP 1 applic PRN PRN Administration Skin Care Pantoprazole Sodium 40 mg 03/07/21 07:00 03/25/21 06:23 Pantoprazole 40 Mg Tablet PO 40 mg QDAC [facility] Administration Multivit/Folic Acid/Iron 1 tab 03/05/21 12:00 03/25/21 08:08 Vitamin Tablet PO 1 tab DAILYWM [facility] Administration Propranolol HCl 10 mg 03/14/21 09:08 03/25/21 08:28 Propranolol 10 Mg Tablet PO 10 mg BID [facility] Administration Saccharomyces Boulardii 250 mg 03/11/21 09:00 03/25/21 08:28 Saccharomyces Boulardii 250 Mg Capsule PO 250 mg DAILY [facility] Administration Sodium Chloride 10 ml 03/01/21 21:15 03/05/21 06:07 Sodium Chloride Flush 0.9% 10 Ml Syringe IVP 10 ml PRN PRN Administration NEEDED PER PROVIDER ORDERS Sodium Chloride 10 ml 03/02/21 01:00 03/25/21 08:28 Sodium Chloride Flush 0.9% 10 Ml Syringe IVP 10 ml 0100,0900,1700 [facility] Administration Spironolactone 25 mg 03/14/21 09:00 03/25/21 08:28 Spironolactone 25 Mg Tablet PO 25 mg DAILY [facility] Administration Tamsulosin HCl 0.4 mg 03/09/21 09:00 03/25/21 08:29 Tamsulosin 0.4 Mg Capsule PO 0.4 mg DAILY [facility] Administration Thiamine HCl 100 mg 03/05/21 12:00 03/25/21 08:28 Thiamine 100 Mg Tablet PO 100 mg DAILY [facility] Administration Zinc Oxide 113 gm 03/01/21 22:30 03/08/21 14:54 Cod Liver Oil/Zinc Oxide 113 Gm Tube TOP 1 applic PRN PRN Administration Skin Care - Lab Result Fish Bone Diagrams: 03/24/21 05:52 03/23/21 04:31 Subjective - Subjective Patient Reports: Feeling Better Objective Vital Signs: Vital Signs - 24 hr 03/24/21 03/25/21 03/25/21 15:49 00:48 07:34 Temperature 37.3 C 37.1 C 37.1 C Heart Rate [ 79 Brachial] Heart Rate [ 87 80 Radial] Respiratory 18 18 20 Rate Blood Pressure 112/53 L 115/59 L 107/57 L [Right Brachial artery] O2 Saturation 95 95 94 Oxygen O2 Source [With Activity] Room air O2 Source Room air I&O (Last 24 Hrs): Intake and Output Totals x24h 03/23/21 03/24/21 03/25/21 23:59 23:59 23:59 Intake Total 2701 2590 730 Output Total 2025 3775 1250 Balance 676 -330 -520 General: Alert, Oriented x3, Cooperative, No acute distress HEENT: Atraumatic Neck: Supple Lymphatic: no adenopathy Neuro: Alert, Non Focal, Oriented Times 3 Cardiovascular: Regular rate, Normal S1, Normal S2 Respiratory: Chest non-tender, No respiratory distress Abdomen: Normal bowel sounds, Soft Extremities: Normal pulses - Results Results: Laboratory Results WBC 7.0 x10^3/uL (4.8-10.8) 03/24/21 05:52 RBC 3.24 10^6/uL (4.70-6.10) L 03/24/21 05:52 Hgb 8.0 g/dL (14.0-18.0) L 03/24/21 05:52 Hct 26.4 % (42.0-52.0) L 03/24/21 05:52 MCV 81.5 fL (80.0-94.0) 03/24/21 05:52 MCH 24.7 pg (27.0-31.0) L 03/24/21 05:52 MCHC 30.3 g/dL (32.0-36.0) L 03/24/21 05:52 RDW 22.9 % (12.0-15.0) H 03/24/21 05:52 Plt Count 162 10^3/uL (130-450) 03/24/21 05:52 MPV 10.5 fL (7.4-11.4) 03/24/21 05:52 Reticulocyte % (Auto) 2.31 % (0.5-2.3) H 03/09/21 05:41 Neut # (Auto) 5.1 10^3/uL (1.5-6.6) 03/24/21 05:52 Lymph # (Auto) 0.7 10^3/uL (1.5-3.5) L 03/24/21 05:52 Dane # (Auto) 1.0 10^3/uL (0.0-1.0) 03/24/21 05:52 Eos # (Auto) 0.2 10^3/uL (0.0-0.7) 03/24/21 05:52 Baso # (Auto) 0.0 10^3/uL (0.0-0.1) 03/24/21 05:52 Absolute Nucleated RBC 0.00 x10^3/uL 03/24/21 05:52 Total Counted 100 03/08/21 04:09 Band Neuts % (Manual) Not Reportable 03/09/21 05:41 Abnorm Lymph % (Manual) Not Reportable 03/09/21 05:41 Nucleated RBC % 0.0 /100WBC 03/24/21 05:52 Neutrophils # (Manual) Not Reportable 03/09/21 05:41 Lymphocytes # (Manual) Not Reportable 03/09/21 05:41 Monocytes # (Manual) Not Reportable 03/09/21 05:41 Eosinophils # (Manual) Not Reportable 03/09/21 05:41 Basophils # (Manual) Not Reportable 03/09/21 05:41 Differential Comment MANUAL=AUTO DIFF 03/09/21 05:41 Manual Slide Review Indicated 03/24/21 05:52 WBC Morphology NORMAL APPEARANCE (NORMAL) 03/21/21 05:34 Platelet Estimate NORMAL (130-450,000) (NORMAL) 03/24/21 05:52 Platelet Morphology NORMAL APPEARANCE (NORMAL) 03/22/21 05:30 RBC Morph Micro Appear 2+ ANISOCYTOSIS (NORMAL) 2+ HYPOCHROMASIA (NORMAL) 1+ OVALOCYTES (NORMAL) 03/24/21 05:52 RBC Morph Micro Appear 2+ ANISOCYTOSIS (NORMAL) 2+ HYPOCHROMASIA (NORMAL) 1+ OVALOCYTES (NORMAL) 03/24/21 05:52 RBC Morph Micro Appear 2+ ANISOCYTOSIS (NORMAL) 2+ HYPOCHROMASIA (NORMAL) 1+ OVALOCYTES (NORMAL) 03/24/21 05:52 Absolute Retic 0.073 10^6/uL (0.020-0.110) 03/09/21 05:41 PT 16.3 secs (9.9-12.6) H 02/28/21 12:34 INR 1.5 (0.8-1.2) H 02/28/21 12:34 APTT 30.2 secs (24.9-33.3) 02/28/21 12:34 Bld Gas Analysis Time 2320 02/28/21 23:15 Sample Site RIGHT RADIAL 02/28/21 23:15 ABG pH 7.41 (7.35-7.45) 02/28/21 23:15 ABG pCO2 20 mmHg (34-45) L* 02/28/21 23:15 ABG pO2 89 mmHg (80-100) 02/28/21 23:15 ABG HCO3 12.5 mmol/L (22.0-26.0) L 02/28/21 23:15 ABG Total CO2 13.1 MMOL/L (21.0-29.0) L 02/28/21 23:15 ABG O2 Saturation 96 % (94-98) 02/28/21 23:15 ABG Base Excess -10.5 mmol/L (-2.0-3.0) L 02/28/21 23:15 Thanh Test POSITIVE 02/28/21 23:15 VBG pH 7.396 (7.31-7.41) 03/02/21 16:45 VBG pCO2 19.0 mmHg (41-51) L 02/28/21 22:02 VBG pO2 75.4 mmHg (25-47) H 02/28/21 22:02 VBG HCO3 11.7 mmol/L (23-28) L 02/28/21 22:02 VBG Total CO2 12.3 mmol/L (24-29) L 02/28/21 22:02 VBG O2 Saturation 93.4 % (60-80) H 02/28/21 22:02 VBG Base Excess -11.0 mmol/L (-2 - +2) L 02/28/21 22:02 Ionized Calcium 1.05 mmol/L (1.15-1.33) L 03/02/21 16:45 O2 Delivery Device NON REBREATHER MASK 02/28/21 23:15 FiO2 21.00 02/28/21 23:15 Sodium 137 mmol/L (135-145) 03/23/21 04:31 Potassium 3.7 mmol/L (3.5-5.0) 03/23/21 04:31 Chloride 101 mmol/L (101-111) 03/23/21 04:31 Carbon Dioxide 27 mmol/L (21-32) 03/23/21 04:31 Anion Gap 9.0 (6-13) 03/23/21 04:31 BUN 14 mg/dL (6-20) 03/23/21 04:31 Creatinine 0.9 mg/dL (0.6-1.2) 03/23/21 04:31 Estimated GFR (MDRD) 83 (>89) L 03/23/21 04:31 Glucose 105 mg/dL (70-100) H 03/23/21 04:31 POC Whole Bld Glucose 134 mg/dL (70 - 100) H 02/28/21 12:27 Lactic Acid 2.5 mmol/L (0.5-2.2) H 02/28/21 21:44 Calcium 8.4 mg/dL (8.5-10.3) L 03/23/21 04:31 Phosphorus 3.4 mg/dL (2.5-4.6) 03/09/21 05:41 Magnesium 1.9 mg/dL (1.7-2.8) 03/08/21 04:09 Iron 18 ug/dL (45-182) L 03/09/21 05:41 TIBC 193 ug/dL (250-450) L 03/09/21 05:41 % Saturation 9 % (20-50) L 03/09/21 05:41 Transferrin 138 mg/dL (180-329) L 03/09/21 05:41 Ferritin 110.3 ng/mL (23.9-336.2) 03/09/21 05:41 Total Bilirubin 2.7 mg/dL (0.2-1.0) H 03/05/21 04:48 AST 19 IU/L (10-42) 03/05/21 04:48 ALT 15 IU/L (10-60) 03/05/21 04:48 Alkaline Phosphatase 100 IU/L (42-121) 03/05/21 04:48 Ammonia 22.0 umol/L (7-35) 03/07/21 11:55 Lactate Dehydrogenase 135 IU/L (91-225) 03/09/21 05:41 Total Creatine Kinase 36 IU/L (22-269) 02/28/21 12:34 Troponin I High Sens 17.5 ng/L (2.3-19.7) 03/03/21 16:42 B-Natriuretic Peptide 313 pg/mL (5-100) H 03/01/21 02:39 Total Protein 6.0 g/dL (6.7-8.2) L 03/05/21 04:48 Albumin 2.1 g/dL (3.2-5.5) L 03/05/21 04:48 Globulin 3.9 g/dL (2.1-4.2) 03/05/21 04:48 Albumin/Globulin Ratio 0.5 (1.0-2.2) L 03/05/21 04:48 Lipase 251 U/L (22-51) H 02/28/21 21:44 Vitamin B12 1216 pg/mL (180-914) H 03/09/21 05:41 Folate 32.00 ng/mL (5.90 - >24.8) 03/09/21 05:41 TSH 2.35 uIU/mL (0.34-5.60) 02/28/21 12:34 Free T4 0.69 ng/dL (0.58-1.64) 02/28/21 12:34 Urine Color DARK YELLOW 02/28/21 13:03 Urine Clarity CLOUDY (CLEAR) 02/28/21 13:03 Urine pH 6.0 PH (5.0-7.5) 02/28/21 13:03 Ur Specific [place] 1.015 (1.002-1.030) 02/28/21 13:03 Urine Protein NEGATIVE mg/dL (NEGATIVE) 02/28/21 13:03 Urine Glucose (UA) NEGATIVE mg/dL (NEGATIVE) 02/28/21 13:03 Urine Ketones NEGATIVE mg/dL (NEGATIVE) 02/28/21 13:03 Urine Occult Blood LARGE (NEGATIVE) H 02/28/21 13:03 Urine Nitrite NEGATIVE (NEGATIVE) 02/28/21 13:03 Urine Bilirubin NEGATIVE (NEGATIVE) 02/28/21 13:03 Urine Urobilinogen 1 (NORMAL) E.U./dL (NORMAL) 02/28/21 13:03 Ur Leukocyte Esterase MODERATE (NEGATIVE) H 02/28/21 13:03 Urine RBC 6-10 /HPF (0-5) H 02/28/21 13:03 Urine WBC >25 /HPF (0-3) H 02/28/21 13:03 Ur Squamous Epith Cells NONE SEEN (<= Few) 02/28/21 13:03 Urine Bacteria Few /HPF (None Seen) 02/28/21 13:03 Ur Microscopic Review INDICATED 02/28/21 13:03 Urine Culture Comments INDICATED 02/28/21 13:03 Nasal Adenovirus (PCR) NOT DETECTED 02/28/21 14:05 Nasal B. parapertussis DNA (PCR) NOT DETECTED 02/28/21 14:05 Nasal Coronavir 229E PCR NOT DETECTED 02/28/21 14:05 Nasal Coronavir HKU1 PCR NOT DETECTED 02/28/21 14:05 Nasal Coronavir NL63 PCR NOT DETECTED 02/28/21 14:05 Nasal Coronavir OC43 PCR NOT DETECTED 02/28/21 14:05 Nasal Enterovir/Rhinovir PCR NOT DETECTED 02/28/21 14:05 Nasal Influenza B PCR NOT DETECTED 02/28/21 14:05 Nasal Influenza A PCR NOT DETECTED 02/28/21 14:05 Nasal Parainfluen 1 PCR NOT DETECTED 02/28/21 14:05 Nasal Parainfluen 2 PCR NOT DETECTED 02/28/21 14:05 Nasal Parainfluen 3 PCR NOT DETECTED 02/28/21 14:05 Nasal Parainfluen 4 PCR NOT DETECTED 02/28/21 14:05 Nasal RSV (PCR) NOT DETECTED 02/28/21 14:05 Nasal Screen MRSA (PCR) NEGATIVE (NEGATIVE) 03/01/21 22:00 Nasal B.pertussis DNA PCR NOT DETECTED 02/28/21 14:05 Nasal C.pneumoniae (PCR) NOT DETECTED 02/28/21 14:05 Gregory Human Metapneumo PCR NOT DETECTED 02/28/21 14:05 Nasal M.pneumoniae (PCR) NOT DETECTED 02/28/21 14:05 Nasal SARS-CoV-2 (PCR) NOT DETECTED 02/28/21 14:05 Stl C. diff Tox B Gene NEGATIVE (NEGATIVE) 03/03/21 00:30 Salicylates < 6.0 mg/dL 02/28/21 12:34 Urine Opiates Screen NEGATIVE (NEGATIVE) 02/28/21 13:03 Ur Oxycodone Screen NEGATIVE (NEGATIVE) 02/28/21 13:03 Urine Methadone Screen NEGATIVE (NEGATIVE) 02/28/21 13:03 Ur Propoxyphene Screen NEGATIVE (NEGATIVE) 02/28/21 13:03 Acetaminophen < 10 ug/mL (10-30) L 02/28/21 12:34 Ur Barbiturates Screen NEGATIVE (NEGATIVE) 02/28/21 13:03 Ur Tricyclics Screen NEGATIVE (NEGATIVE) 02/28/21 13:03 Ur Phencyclidine Scrn NEGATIVE (NEGATIVE) 02/28/21 13:03 Ur Amphetamine Screen NEGATIVE (NEGATIVE) 02/28/21 13:03 U Methamphetamines Scrn NEGATIVE (NEGATIVE) 02/28/21 13:03 U Benzodiazepines Scrn NEGATIVE (NEGATIVE) 02/28/21 13:03 Urine Cocaine Screen NEGATIVE (NEGATIVE) 02/28/21 13:03 U Cannabinoids Screen NEGATIVE (NEGATIVE) 02/28/21 13:03 Ethyl Alcohol < 5.0 mg/dL 02/28/21 12:34 Blood Type A POSITIVE 03/19/21 08:10 Antibody Screen NEGATIVE 03/19/21 08:10 Crossmatch IS Only See Detail 03/19/21 08:10 - Procedures Procedures: Procedures DRAINAGE OF PERITONEAL CAVITY, PERCUTANEOUS APPROACH, DIAGN (12/19/15) TRANSFUSE NONAUT RED BLOOD CELLS IN PERIPH VEIN, PERC (12/19/15) Sepsis Event Note (H) - Evaluation Possible source of Sepsis: positive: Genitourinary, Skin/soft tissue ABX Reporting Has patient been on IV antibiotics over the past 48 hours?: No Current Medications - Current Medications Current Medications: Active Medications Diltiazem HCl (Diltiazem Cd 120 Mg Capsule) 120 mg PO DAILY [facility] Last Admin: 03/25/21 08:28 Dose: 120 mg Documented by: Ferrous Gluconate (Ferrous Gluconate 324 Mg Tablet) 324 mg PO DAILYWM [facility] Last Admin: 03/25/21 08:08 Dose: 324 mg Documented by: Furosemide (Furosemide 20 Mg Tablet) 20 mg PO DAILY [facility] Last Admin: 03/25/21 08:28 Dose: 20 mg Documented by: Lactulose (Lactulose 10 Gm /15 Ml Udc) 10 gm PO DAILY [facility] Last Admin: 03/25/21 08:28 Dose: 10 gm Documented by: Morphine Sulfate (Morphine 2 Mg/Ml Carpuject) 2 mg IVP Q2HR PRN PRN Reason: PAIN Last Admin: 03/05/21 03:27 Dose: 2 mg Documented by: Multi-Ingredient Ointment (Zinc Oxide 20% Oint 30 Gm Tube) 1 applic TOP PRN PRN PRN Reason: Skin Care Last Admin: 03/22/21 11:40 Dose: 1 applic Documented by: Ondansetron HCl (Ondansetron 4 Mg/2 Ml Vial) 4 mg IVP Q6HR PRN PRN Reason: Nausea / Vomiting Pantoprazole Sodium (Pantoprazole 40 Mg Tablet) 40 mg PO QDAC [facility] Last Admin: 03/25/21 06:23 Dose: 40 mg Documented by: Multivit/Folic Acid/Iron ( Vitamin Tablet) 1 tab PO DAILYWM [facility] Last Admin: 03/25/21 08:08 Dose: 1 tab Documented by: Propranolol HCl (Propranolol 10 Mg Tablet) 10 mg PO BID [facility] Last Admin: 03/25/21 08:28 Dose: 10 mg Documented by: Saccharomyces Boulardii (Saccharomyces Boulardii 250 Mg Capsule) 250 mg PO DAILY [facility] Last Admin: 03/25/21 08:28 Dose: 250 mg Documented by: Sodium Chloride (Sodium Chloride Flush 0.9% 10 Ml Syringe) 10 ml IVP PRN PRN PRN Reason: NEEDED PER PROVIDER ORDERS Last Admin: 03/05/21 06:07 Dose: 10 ml Documented by: Sodium Chloride (Sodium Chloride Flush 0.9% 10 Ml Syringe) 10 ml IVP 0100,0900,1700 [facility] Last Admin: 03/25/21 08:28 Dose: 10 ml Documented by: Spironolactone (Spironolactone 25 Mg Tablet) 25 mg PO DAILY [facility] Last Admin: 03/25/21 08:28 Dose: 25 mg Documented by: Tamsulosin HCl (Tamsulosin 0.4 Mg Capsule) 0.4 mg PO DAILY [facility] Last Admin: 03/25/21 08:29 Dose: 0.4 mg Documented by: Thiamine HCl (Thiamine 100 Mg Tablet) 100 mg PO DAILY [facility] Last Admin: 03/25/21 08:28 Dose: 100 mg Documented by: Zinc Oxide (Cod Liver Oil/Zinc Oxide 113 Gm Tube) 113 gm TOP PRN PRN PRN Reason: Skin Care Last Admin: 03/08/21 14:54 Dose: 1 applic Documented by: Furosemide [Lasix] 20 mg PO DAILY 07/31/20 Propranolol [Inderal] 10 mg PO BID 07/31/20 Spironolactone [Aldactone] 25 mg PO DAILY 07/31/20
[2021-03-26] MEDS: SODIUM CHLORIDE FLUSH 0.9% 10 ML SYRINGE IVP SCH ×3 (01:07→17:38)
[2021-03-26] MEDS: PANTOPRAZOLE 40 MG TABLET PO SCH (06:18)
[2021-03-26] MEDS: diltiaZEM CD 120 MG CAPSULE PO SCH (09:24)
[2021-03-26] MEDS: SPIRONOLACTONE 25 MG TABLET PO SCH (09:24)
[2021-03-26] MEDS: PRENATAL VITAMIN TABLET PO SCH (09:24)
[2021-03-26] MEDS: LACTULOSE 10 GM /15 ML UDC PO SCH (09:24)
[2021-03-26] MEDS: TAMSULOSIN 0.4 MG CAPSULE PO SCH (09:24)
[2021-03-26] MEDS: FERROUS GLUCONATE 324 MG TABLET PO SCH (09:24)
[2021-03-26] MEDS: PROPRANOLOL 10 MG TABLET PO SCH ×2 (09:24→21:17)
[2021-03-26] MEDS: FUROSEMIDE 20 MG TABLET PO SCH (09:24)
[2021-03-26] MEDS: THIAMINE 100 MG TABLET PO SCH (09:24)
[2021-03-26] MEDS: SACCHAROMYCES BOULARDII 250 MG CAPSULE PO SCH (09:24)
--- NOTE | 2021-03-26 10:32 | PROVIDER PROGRESS NOTE ---
Assessment/Plan - Problem List (1) End stage liver disease Assessment/Plan: complicated disposition, -pt remained clinically stable, awaits placement, appreciate SW, CM service. (1) Acute renal failure Qualifiers: Qualified Code(s): N17.9 - Acute kidney failure, unspecified Assessment/Plan: Patient has remarkably improved, his acute renal failure was resolved, creatinine is 0.9 on today. 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 This was secondary to hyperammonemia and Hepatic failure. He appears back to his baseline, Continue lactulose. (3) End stage liver disease Impression: stable, Encephalopathy was resolved. This is likely secondary to alcoholic cirrhosis. His abdomen is distended but soft and there is no currently indication for paracentesis. We have resumed his spironolactone and Lasix. We have also resumed his propanolol. He is pending placement to [facility] facility or long-term assisted living.We will continue to see him on a daily basis with nonbillable rounding. (4) SVT (supraventricular tachycardia) Impression: Stable. We are continuing Cardizem. (5) Urinary incontinence with continuous leakage Impression: Stable. He is a chronic indwelling Calix catheter which we have continued. He is also on Flomax, continue Calix care (6) Iron deficiency anemia due to dietary causes Impression: stable. His hemoglobin is stable in the low 7's. He had been started on iron for suspected iron deficiency anemia which we will continue. (7) Staphylococcus aureus bacteremia Impression: Stable, patient has no fever, Hemodynamics is stable. Initial blood cultures grew Staph aureus in just the anaerobic bottle. The other cultures were negative. Repeat blood cultures have been negative to date. He was treated with Zosyn IV for 6 days given elevated white count but antibiotics have since been discontinued. It is likely from Contamination. - Current Meds Current Meds: Current Medications Generic Name Dose Route Start Last Admin Trade Name Freq PRN Reason Stop Dose Admin Diltiazem HCl 120 mg 03/07/21 11:00 03/26/21 09:24 Diltiazem Cd 120 Mg Capsule PO 120 mg DAILY TRACI Administration Ferrous Gluconate 324 mg 03/09/21 09:00 03/26/21 09:24 Ferrous Gluconate 324 Mg Tablet PO 324 mg DAILYWM TRACI Administration Furosemide 20 mg 03/14/21 09:00 03/26/21 09:24 Furosemide 20 Mg Tablet PO 20 mg DAILY TRACI Administration Lactulose 10 gm 03/06/21 09:00 03/26/21 09:24 Lactulose 10 Gm /15 Ml Udc PO 10 gm DAILY TRACI Administration Morphine Sulfate 2 mg 03/03/21 00:20 03/05/21 03:27 Morphine 2 Mg/Ml Carpuject IVP 2 mg Q2HR PRN Administration PAIN Multi-Ingredient Ointment 1 applic 03/02/21 03:51 03/22/21 11:40 Zinc Oxide 20% Oint 30 Gm Tube TOP 1 applic PRN PRN Administration Skin Care Pantoprazole Sodium 40 mg 03/07/21 07:00 03/26/21 06:18 Pantoprazole 40 Mg Tablet PO 40 mg QDAC TRACI Administration Multivit/Folic Acid/Iron 1 tab 03/05/21 12:00 03/26/21 09:24 Vitamin Tablet PO 1 tab DAILYWM TRACI Administration Propranolol HCl 10 mg 03/14/21 09:08 03/26/21 09:24 Propranolol 10 Mg Tablet PO 10 mg BID TRACI Administration Saccharomyces Boulardii 250 mg 03/11/21 09:00 03/26/21 09:24 Saccharomyces Boulardii 250 Mg Capsule PO 250 mg DAILY TRACI Administration Sodium Chloride 10 ml 03/01/21 21:15 03/05/21 06:07 Sodium Chloride Flush 0.9% 10 Ml Syringe IVP 10 ml PRN PRN Administration NEEDED PER PROVIDER ORDERS Sodium Chloride 10 ml 03/02/21 01:00 03/26/21 09:25 Sodium Chloride Flush 0.9% 10 Ml Syringe IVP 10 ml 0100,0900,1700 TRACI Administration Spironolactone 25 mg 03/14/21 09:00 03/26/21 09:24 Spironolactone 25 Mg Tablet PO 25 mg DAILY TRACI Administration Tamsulosin HCl 0.4 mg 03/09/21 09:00 03/26/21 09:24 Tamsulosin 0.4 Mg Capsule PO 0.4 mg DAILY TRACI Administration Thiamine HCl 100 mg 03/05/21 12:00 03/26/21 09:24 Thiamine 100 Mg Tablet PO 100 mg DAILY TRACI Administration Zinc Oxide 113 gm 03/01/21 22:30 03/08/21 14:54 Cod Liver Oil/Zinc Oxide 113 Gm Tube TOP 1 applic PRN PRN Administration Skin Care - Lab Result Fish Bone Diagrams: 03/24/21 05:52 03/23/21 04:31 Subjective - Subjective Patient Reports: Other (pt denies any abd pain, no complaints,) Objective Vital Signs: Vital Signs - 24 hr 03/25/21 03/26/21 03/26/21 16:00 00:00 07:43 Temperature 36.7 C 36.8 C 36.8 C Heart Rate [ 89 89 81 Brachial] Respiratory 20 24 18 Rate Blood Pressure 124/52 L 114/59 L 116/54 L [Right Brachial artery] O2 Saturation 93 95 94 Oxygen O2 Source [With Activity] Room air O2 Source Room air I&O (Last 24 Hrs): Intake and Output Totals x24h 03/24/21 03/25/21 03/26/21 23:59 23:59 23:59 Intake Total 2590 2050 670 Output Total 3225 2450 1450 Balance -936 -461 -232 General: Alert, Oriented x3, Cooperative, No acute distress HEENT: Atraumatic, PERRLA, EOMI Neck: Supple, No JVD, No thyromegaly, +2 carotid pulse wo bruit, No LAD Lymphatic: no adenopathy Neuro: Alert, CN 2-12 Grossly Intact, Oriented Times 3 Cardiovascular: Regular rate, Normal S1, Normal S2, No murmurs Respiratory: Chest non-tender, No respiratory distress, Breath sounds nml Abdomen: Normal bowel sounds, Soft, No tenderness, Other (moderately distended) Genitourinary: Normal Inspection, No Mass, No Discharge, No Meatal Blood, No Hernia Rectal: Non-Tender Extremities: No clubbing, No cyanosis, No edema, Normal pulses, No tenderness/swelling Skin: No rashes, No breakdown, No significant lesion - Results Results: Laboratory Results WBC 7.0 x10^3/uL (4.8-10.8) 03/24/21 05:52 RBC 3.24 10^6/uL (4.70-6.10) L 03/24/21 05:52 Hgb 8.0 g/dL (14.0-18.0) L 03/24/21 05:52 Hct 26.4 % (42.0-52.0) L 03/24/21 05:52 MCV 81.5 fL (80.0-94.0) 03/24/21 05:52 MCH 24.7 pg (27.0-31.0) L 03/24/21 05:52 MCHC 30.3 g/dL (32.0-36.0) L 03/24/21 05:52 RDW 22.9 % (12.0-15.0) H 03/24/21 05:52 Plt Count 162 10^3/uL (130-450) 03/24/21 05:52 MPV 10.5 fL (7.4-11.4) 03/24/21 05:52 Reticulocyte % (Auto) 2.31 % (0.5-2.3) H 03/09/21 05:41 Neut # (Auto) 5.1 10^3/uL (1.5-6.6) 03/24/21 05:52 Lymph # (Auto) 0.7 10^3/uL (1.5-3.5) L 03/24/21 05:52 Coles # (Auto) 1.0 10^3/uL (0.0-1.0) 03/24/21 05:52 Eos # (Auto) 0.2 10^3/uL (0.0-0.7) 03/24/21 05:52 Baso # (Auto) 0.0 10^3/uL (0.0-0.1) 03/24/21 05:52 Absolute Nucleated RBC 0.00 x10^3/uL 03/24/21 05:52 Total Counted 100 03/08/21 04:09 Band Neuts % (Manual) Not Reportable 03/09/21 05:41 Abnorm Lymph % (Manual) Not Reportable 03/09/21 05:41 Nucleated RBC % 0.0 /100WBC 03/24/21 05:52 Neutrophils # (Manual) Not Reportable 03/09/21 05:41 Lymphocytes # (Manual) Not Reportable 03/09/21 05:41 Monocytes # (Manual) Not Reportable 03/09/21 05:41 Eosinophils # (Manual) Not Reportable 03/09/21 05:41 Basophils # (Manual) Not Reportable 03/09/21 05:41 Differential Comment MANUAL=AUTO DIFF 03/09/21 05:41 Manual Slide Review Indicated 03/24/21 05:52 WBC Morphology NORMAL APPEARANCE (NORMAL) 03/21/21 05:34 Platelet Estimate NORMAL (130-450,000) (NORMAL) 03/24/21 05:52 Platelet Morphology NORMAL APPEARANCE (NORMAL) 03/22/21 05:30 RBC Morph Micro Appear 2+ ANISOCYTOSIS (NORMAL) 2+ HYPOCHROMASIA (NORMAL) 1+ OVALOCYTES (NORMAL) 03/24/21 05:52 RBC Morph Micro Appear 2+ ANISOCYTOSIS (NORMAL) 2+ HYPOCHROMASIA (NORMAL) 1+ OVALOCYTES (NORMAL) 03/24/21 05:52 RBC Morph Micro Appear 2+ ANISOCYTOSIS (NORMAL) 2+ HYPOCHROMASIA (NORMAL) 1+ OVALOCYTES (NORMAL) 03/24/21 05:52 Absolute Retic 0.073 10^6/uL (0.020-0.110) 03/09/21 05:41 PT 16.3 secs (9.9-12.6) H 02/28/21 12:34 INR 1.5 (0.8-1.2) H 02/28/21 12:34 APTT 30.2 secs (24.9-33.3) 02/28/21 12:34 Bld Gas Analysis Time 2320 02/28/21 23:15 Sample Site RIGHT RADIAL 02/28/21 23:15 ABG pH 7.41 (7.35-7.45) 02/28/21 23:15 ABG pCO2 20 mmHg (34-45) L* 02/28/21 23:15 ABG pO2 89 mmHg (80-100) 02/28/21 23:15 ABG HCO3 12.5 mmol/L (22.0-26.0) L 02/28/21 23:15 ABG Total CO2 13.1 MMOL/L (21.0-29.0) L 02/28/21 23:15 ABG O2 Saturation 96 % (94-98) 02/28/21 23:15 ABG Base Excess -10.5 mmol/L (-2.0-3.0) L 02/28/21 23:15 Thanh Test POSITIVE 02/28/21 23:15 VBG pH 7.396 (7.31-7.41) 03/02/21 16:45 VBG pCO2 19.0 mmHg (41-51) L 02/28/21 22:02 VBG pO2 75.4 mmHg (25-47) H 02/28/21 22:02 VBG HCO3 11.7 mmol/L (23-28) L 02/28/21 22:02 VBG Total CO2 12.3 mmol/L (24-29) L 02/28/21 22:02 VBG O2 Saturation 93.4 % (60-80) H 02/28/21 22:02 VBG Base Excess -11.0 mmol/L (-2 - +2) L 02/28/21 22:02 Ionized Calcium 1.05 mmol/L (1.15-1.33) L 03/02/21 16:45 O2 Delivery Device NON REBREATHER MASK 02/28/21 23:15 FiO2 21.00 02/28/21 23:15 Sodium 137 mmol/L (135-145) 03/23/21 04:31 Potassium 3.7 mmol/L (3.5-5.0) 03/23/21 04:31 Chloride 101 mmol/L (101-111) 03/23/21 04:31 Carbon Dioxide 27 mmol/L (21-32) 03/23/21 04:31 Anion Gap 9.0 (6-13) 03/23/21 04:31 BUN 14 mg/dL (6-20) 03/23/21 04:31 Creatinine 0.9 mg/dL (0.6-1.2) 03/23/21 04:31 Estimated GFR (MDRD) 83 (>89) L 03/23/21 04:31 Glucose 105 mg/dL (70-100) H 03/23/21 04:31 POC Whole Bld Glucose 134 mg/dL (70 - 100) H 02/28/21 12:27 Lactic Acid 2.5 mmol/L (0.5-2.2) H 02/28/21 21:44 Calcium 8.4 mg/dL (8.5-10.3) L 03/23/21 04:31 Phosphorus 3.4 mg/dL (2.5-4.6) 03/09/21 05:41 Magnesium 1.9 mg/dL (1.7-2.8) 03/08/21 04:09 Iron 18 ug/dL (45-182) L 03/09/21 05:41 TIBC 193 ug/dL (250-450) L 03/09/21 05:41 % Saturation 9 % (20-50) L 03/09/21 05:41 Transferrin 138 mg/dL (180-329) L 03/09/21 05:41 Ferritin 110.3 ng/mL (23.9-336.2) 03/09/21 05:41 Total Bilirubin 2.7 mg/dL (0.2-1.0) H 03/05/21 04:48 AST 19 IU/L (10-42) 03/05/21 04:48 ALT 15 IU/L (10-60) 03/05/21 04:48 Alkaline Phosphatase 100 IU/L (42-121) 03/05/21 04:48 Ammonia 22.0 umol/L (7-35) 03/07/21 11:55 Lactate Dehydrogenase 135 IU/L (91-225) 03/09/21 05:41 Total Creatine Kinase 36 IU/L (22-269) 02/28/21 12:34 Troponin I High Sens 17.5 ng/L (2.3-19.7) 03/03/21 16:42 B-Natriuretic Peptide 313 pg/mL (5-100) H 03/01/21 02:39 Total Protein 6.0 g/dL (6.7-8.2) L 03/05/21 04:48 Albumin 2.1 g/dL (3.2-5.5) L 03/05/21 04:48 Globulin 3.9 g/dL (2.1-4.2) 03/05/21 04:48 Albumin/Globulin Ratio 0.5 (1.0-2.2) L 03/05/21 04:48 Lipase 251 U/L (22-51) H 02/28/21 21:44 Vitamin B12 1216 pg/mL (180-914) H 03/09/21 05:41 Folate 32.00 ng/mL (5.90 - >24.8) 03/09/21 05:41 TSH 2.35 uIU/mL (0.34-5.60) 02/28/21 12:34 Free T4 0.69 ng/dL (0.58-1.64) 02/28/21 12:34 Urine Color DARK YELLOW 02/28/21 13:03 Urine Clarity CLOUDY (CLEAR) 02/28/21 13:03 Urine pH 6.0 PH (5.0-7.5) 02/28/21 13:03 Ur Specific Hyde 1.015 (1.002-1.030) 02/28/21 13:03 Urine Protein NEGATIVE mg/dL (NEGATIVE) 02/28/21 13:03 Urine Glucose (UA) NEGATIVE mg/dL (NEGATIVE) 02/28/21 13:03 Urine Ketones NEGATIVE mg/dL (NEGATIVE) 02/28/21 13:03 Urine Occult Blood LARGE (NEGATIVE) H 02/28/21 13:03 Urine Nitrite NEGATIVE (NEGATIVE) 02/28/21 13:03 Urine Bilirubin NEGATIVE (NEGATIVE) 02/28/21 13:03 Urine Urobilinogen 1 (NORMAL) E.U./dL (NORMAL) 02/28/21 13:03 Ur Leukocyte Esterase MODERATE (NEGATIVE) H 02/28/21 13:03 Urine RBC 6-10 /HPF (0-5) H 02/28/21 13:03 Urine WBC >25 /HPF (0-3) H 02/28/21 13:03 Ur Squamous Epith Cells NONE SEEN (<= Few) 02/28/21 13:03 Urine Bacteria Few /HPF (None Seen) 02/28/21 13:03 Ur Microscopic Review INDICATED 02/28/21 13:03 Urine Culture Comments INDICATED 02/28/21 13:03 Nasal Adenovirus (PCR) NOT DETECTED 02/28/21 14:05 Nasal B. parapertussis DNA (PCR) NOT DETECTED 02/28/21 14:05 Nasal Coronavir 229E PCR NOT DETECTED 02/28/21 14:05 Nasal Coronavir HKU1 PCR NOT DETECTED 02/28/21 14:05 Nasal Coronavir NL63 PCR NOT DETECTED 02/28/21 14:05 Nasal Coronavir OC43 PCR NOT DETECTED 02/28/21 14:05 Nasal Enterovir/Rhinovir PCR NOT DETECTED 02/28/21 14:05 Nasal Influenza B PCR NOT DETECTED 02/28/21 14:05 Nasal Influenza A PCR NOT DETECTED 02/28/21 14:05 Nasal Parainfluen 1 PCR NOT DETECTED 02/28/21 14:05 Nasal Parainfluen 2 PCR NOT DETECTED 02/28/21 14:05 Nasal Parainfluen 3 PCR NOT DETECTED 02/28/21 14:05 Nasal Parainfluen 4 PCR NOT DETECTED 02/28/21 14:05 Nasal RSV (PCR) NOT DETECTED 02/28/21 14:05 Nasal Screen MRSA (PCR) NEGATIVE (NEGATIVE) 03/01/21 22:00 Nasal B.pertussis DNA PCR NOT DETECTED 02/28/21 14:05 Nasal C.pneumoniae (PCR) NOT DETECTED 02/28/21 14:05 Gregory Human Metapneumo PCR NOT DETECTED 02/28/21 14:05 Nasal M.pneumoniae (PCR) NOT DETECTED 02/28/21 14:05 Nasal SARS-CoV-2 (PCR) NOT DETECTED 02/28/21 14:05 Stl C. diff Tox B Gene NEGATIVE (NEGATIVE) 03/03/21 00:30 Salicylates < 6.0 mg/dL 02/28/21 12:34 Urine Opiates Screen NEGATIVE (NEGATIVE) 02/28/21 13:03 Ur Oxycodone Screen NEGATIVE (NEGATIVE) 02/28/21 13:03 Urine Methadone Screen NEGATIVE (NEGATIVE) 02/28/21 13:03 Ur Propoxyphene Screen NEGATIVE (NEGATIVE) 02/28/21 13:03 Acetaminophen < 10 ug/mL (10-30) L 02/28/21 12:34 Ur Barbiturates Screen NEGATIVE (NEGATIVE) 02/28/21 13:03 Ur Tricyclics Screen NEGATIVE (NEGATIVE) 02/28/21 13:03 Ur Phencyclidine Scrn NEGATIVE (NEGATIVE) 02/28/21 13:03 Ur Amphetamine Screen NEGATIVE (NEGATIVE) 02/28/21 13:03 U Methamphetamines Scrn NEGATIVE (NEGATIVE) 02/28/21 13:03 U Benzodiazepines Scrn NEGATIVE (NEGATIVE) 02/28/21 13:03 Urine Cocaine Screen NEGATIVE (NEGATIVE) 02/28/21 13:03 U Cannabinoids Screen NEGATIVE (NEGATIVE) 02/28/21 13:03 Ethyl Alcohol < 5.0 mg/dL 02/28/21 12:34 Blood Type A POSITIVE 03/19/21 08:10 Antibody Screen NEGATIVE 03/19/21 08:10 Crossmatch IS Only See Detail 03/19/21 08:10 - Procedures Procedures: Procedures DRAINAGE OF PERITONEAL CAVITY, PERCUTANEOUS APPROACH, DIAGN (12/19/15) TRANSFUSE NONAUT RED BLOOD CELLS IN PERIPH VEIN, PERC (12/19/15) Sepsis Event Note (H) - Evaluation Possible source of Sepsis: positive: Genitourinary, Skin/soft tissue
[2021-03-27] MEDS: SODIUM CHLORIDE FLUSH 0.9% 10 ML SYRINGE IVP SCH ×3 (02:31→16:06)
[2021-03-27] MEDS: PANTOPRAZOLE 40 MG TABLET PO SCH (06:16)
[2021-03-27] MEDS: FUROSEMIDE 20 MG TABLET PO SCH (07:56)
[2021-03-27] MEDS: FERROUS GLUCONATE 324 MG TABLET PO SCH (07:56)
[2021-03-27] MEDS: TAMSULOSIN 0.4 MG CAPSULE PO SCH (07:56)
[2021-03-27] MEDS: PROPRANOLOL 10 MG TABLET PO SCH ×2 (07:56→20:36)
[2021-03-27] MEDS: THIAMINE 100 MG TABLET PO SCH (07:56)
[2021-03-27] MEDS: SACCHAROMYCES BOULARDII 250 MG CAPSULE PO SCH (07:56)
[2021-03-27] MEDS: LACTULOSE 10 GM /15 ML UDC PO SCH (07:57)
[2021-03-27] MEDS: diltiaZEM CD 120 MG CAPSULE PO SCH (07:57)
[2021-03-27] MEDS: PRENATAL VITAMIN TABLET PO SCH (07:57)
[2021-03-27] MEDS: SPIRONOLACTONE 25 MG TABLET PO SCH (07:57)
--- NOTE | 2021-03-27 08:30 | PROVIDER PROGRESS NOTE ---
Subjective - Prog Note Date Prog Note Date: 03/27/21 Prog Note Time: 08:30 - Subjective Subjective: Psychomotor slowing. I admitted this patient on March 01 and have gone on and off service twice to see him again my third time around. He is so much improved from when I first met him to now. He definitely has cognitive deficits and slight gait ataxia and psychomotor slowing but is overall much, much, much improved from when we admitted him. He has been discharged from physical therapy. Nutrition does not have any new advice form. Pharmacy feels he stable on his medication regimen. His last labs were March 24. CBC was stable. Current Medications - Current Medications Current Medications: Active Medications Diltiazem HCl (Diltiazem Cd 120 Mg Capsule) 120 mg PO DAILY [facility] Last Admin: 03/27/21 07:57 Dose: 120 mg Documented by: Ferrous Gluconate (Ferrous Gluconate 324 Mg Tablet) 324 mg PO DAILYWM [facility] Last Admin: 03/27/21 07:56 Dose: 324 mg Documented by: Furosemide (Furosemide 20 Mg Tablet) 20 mg PO DAILY [facility] Last Admin: 03/27/21 07:56 Dose: 20 mg Documented by: Lactulose (Lactulose 10 Gm /15 Ml Udc) 10 gm PO DAILY [facility] Last Admin: 03/27/21 07:57 Dose: 10 gm Documented by: Morphine Sulfate (Morphine 2 Mg/Ml Carpuject) 2 mg IVP Q2HR PRN PRN Reason: PAIN Last Admin: 03/05/21 03:27 Dose: 2 mg Documented by: Multi-Ingredient Ointment (Zinc Oxide 20% Oint 30 Gm Tube) 1 applic TOP PRN PRN PRN Reason: Skin Care Last Admin: 03/22/21 11:40 Dose: 1 applic Documented by: Ondansetron HCl (Ondansetron 4 Mg/2 Ml Vial) 4 mg IVP Q6HR PRN PRN Reason: Nausea / Vomiting Pantoprazole Sodium (Pantoprazole 40 Mg Tablet) 40 mg PO QDAC [facility] Last Admin: 03/27/21 06:16 Dose: 40 mg Documented by: Multivit/Folic Acid/Iron ( Vitamin Tablet) 1 tab PO DAILYWM [facility] Last Admin: 03/27/21 07:57 Dose: 1 tab Documented by: Propranolol HCl (Propranolol 10 Mg Tablet) 10 mg PO BID [facility] Last Admin: 03/27/21 07:56 Dose: 10 mg Documented by: Saccharomyces Boulardii (Saccharomyces Boulardii 250 Mg Capsule) 250 mg PO DAILY [facility] Last Admin: 03/27/21 07:56 Dose: 250 mg Documented by: Sodium Chloride (Sodium Chloride Flush 0.9% 10 Ml Syringe) 10 ml IVP PRN PRN PRN Reason: NEEDED PER PROVIDER ORDERS Last Admin: 03/05/21 06:07 Dose: 10 ml Documented by: Sodium Chloride (Sodium Chloride Flush 0.9% 10 Ml Syringe) 10 ml IVP 0100,0900,1700 [facility] Last Admin: 03/27/21 07:57 Dose: 10 ml Documented by: Spironolactone (Spironolactone 25 Mg Tablet) 25 mg PO DAILY [facility] Last Admin: 03/27/21 07:57 Dose: 25 mg Documented by: Tamsulosin HCl (Tamsulosin 0.4 Mg Capsule) 0.4 mg PO DAILY [facility] Last Admin: 03/27/21 07:56 Dose: 0.4 mg Documented by: Thiamine HCl (Thiamine 100 Mg Tablet) 100 mg PO DAILY [facility] Last Admin: 03/27/21 07:56 Dose: 100 mg Documented by: Zinc Oxide (Cod Liver Oil/Zinc Oxide 113 Gm Tube) 113 gm TOP PRN PRN PRN Reason: Skin Care Last Admin: 03/08/21 14:54 Dose: 1 applic Documented by: Furosemide [Lasix] 20 mg PO DAILY 07/31/20 Propranolol [Inderal] 10 mg PO BID 07/31/20 Spironolactone [Aldactone] 25 mg PO DAILY 07/31/20 Objective - Vital Signs/Intake & Output Reviewed Vital Signs: Yes Vital Signs: Vital Signs x48h Temp Pulse Resp BP Pulse Ox 03/27/21 07:42 36.6 C 83 16 118/55 L 94 Intake & Output: Intake & Output 03/24/21 03/25/21 03/26/21 03/27/21 23:59 23:59 23:59 23:59 Intake Total 2590 2050 1480 980 Output Total 3225 2450 2900 725 Balance -227 -340 -5999 255 - Objective General Appearance: positive: No acute distress, Alert Eyes Bilateral: positive: PERRL, EOMI ENT: positive: No signs of dehydration Neck: positive: No JVD Abdomen: positive: Non-tender, Nml bowel sounds, No distention, Other (When I last saw him he still had a fluid wave. I am not feeling 1 today.). negative: Guarding, Rebound Skin: positive: Warm, Dry Extremities: positive: No pedal edema Neurologic/Psychiatric: positive: Oriented x3, CN's nml (2-12), Other (Tinetti score 25. Last seen by physical therapy March 16. He was discharged from occupational therapy March 17.). negative: Motor nml (He walks in the room, no assistance, but still has a wide-based gait, and occasionally reaches for the furniture for balance.) - Lab Results Fish Bones: 03/24/21 05:52 03/23/21 04:31 ABX Reporting Has patient been on IV antibiotics over the past 48 hours?: No Sepsis Event Note (H) - Evaluation Possible source of Sepsis: positive: Genitourinary, Skin/soft tissue Assessment/Plan - Problem List (1) End stage liver disease Impression: complicated disposition, -pt remained clinically stable, awaits placement, appreciate SW, CM service. (1) Acute renal failure Qualifiers: Qualified Code(s): N17.9 - Acute kidney failure, unspecified Assessment/Plan: Patient has remarkably improved, his acute renal failure was resolved, Creatinine was 0.9 the last time it was checked. 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 This was secondary to hyperammonemia and Hepatic failure. He appears back to his baseline, Continue lactulose. (3) End stage liver disease Impression: stable, Encephalopathy was resolved. This is likely secondary to alcoholic cirrhosis. His abdomen is distended but soft and there is no currently indication for paracentesis. We have resumed his spironolactone and Lasix. We have also resumed his propanolol. He is pending placement to half-way facility or long-term assisted living.We will continue to see him on a daily basis with nonbillable rounding. (4) SVT (supraventricular tachycardia) Impression: Stable. We are continuing Cardizem. (5) Urinary incontinence with continuous leakage Impression: Stable. He is a chronic indwelling Calix catheter which we have continued. He is also on Flomax, continue Calix care (6) Iron deficiency anemia due to dietary causes Impression: stable. His hemoglobin had been stable in the low 7's. He had been started on iron for suspected iron deficiency anemia which we will continue. Last hemoglobin was 8 on March 24 and he has been in the 8s for this month. (7) Staphylococcus aureus bacteremia Impression: Stable, patient has no fever, Hemodynamics is stable. Initial blood cultures grew Staph aureus in just the anaerobic bottle. The other cultures were negative. Repeat blood cultures have been negative to date. He was treated with Zosyn IV for 6 days given elevated white count but antibiotics have since been discontinued. It is likely from Contamination. (2) Acute renal failure Qualifiers: Qualified Code(s): N17.9 - Acute kidney failure, unspecified
[2021-03-28] MEDS: SODIUM CHLORIDE FLUSH 0.9% 10 ML SYRINGE IVP SCH ×4 (02:37→23:29)
[2021-03-28] MEDS: PANTOPRAZOLE 40 MG TABLET PO SCH (06:30)
[2021-03-28] MEDS: THIAMINE 100 MG TABLET PO SCH (08:31)
[2021-03-28] MEDS: PROPRANOLOL 10 MG TABLET PO SCH ×2 (08:31→20:29)
[2021-03-28] MEDS: PRENATAL VITAMIN TABLET PO SCH (08:31)
[2021-03-28] MEDS: diltiaZEM CD 120 MG CAPSULE PO SCH (08:32)
[2021-03-28] MEDS: LACTULOSE 10 GM /15 ML UDC PO SCH (08:32)
[2021-03-28] MEDS: FUROSEMIDE 20 MG TABLET PO SCH (08:32)
[2021-03-28] MEDS: SACCHAROMYCES BOULARDII 250 MG CAPSULE PO SCH (08:32)
[2021-03-28] MEDS: TAMSULOSIN 0.4 MG CAPSULE PO SCH (08:32)
[2021-03-28] MEDS: SPIRONOLACTONE 25 MG TABLET PO SCH (08:32)
[2021-03-28] MEDS: FERROUS GLUCONATE 324 MG TABLET PO SCH (08:32)
--- NOTE | 2021-03-28 17:33 | PROVIDER PROGRESS NOTE ---
Progress Note March 28, 2021 5:27 PM No new events. Mr. Griggs he is doing very well. Stabilized into his diet, medications. He says he started to get bored. Medications: Cardizem CD, Fergon, Lasix, Enulose, morphine as needed, zinc oxide, Zofran as needed, Protonix, vitamin, propranolol, Florastor, spironolactone, thiamine, Desitin Temperature 37.4. Heart rate 95. Blood pressure 114/64. Respirations 18. 95% on room air. 5 foot 7 inch male who 77 kg Pleasant, cooperative male who is alert. Still with thoughtful pauses and slow communication style but it is much, much improved from when he was admitted. Shotty neck adenopathy. Nontender. No bruits no JVD Lungs are clear to auscultation and percussion Regular rate and rhythm Abdomen is soft, nontender. The fluid wave that was very protuberant on admission has subsided substantially to the point that I really do not feel fluid wave anymore No edema. Calix catheter in place. Assessment/plan 1 end-stage liver disease that has been clinically stabilized with beta-ariana, lactulose, hydration, and a temporary use of antibiotics on the beginning of admission. He is doing very well. 2. Acute renal failure with a creatinine that was 10.3 on admission. That was February 28. With hydration, antibiotics, and nutrition his creatinine has been 0.9 to 1.0 starting March 15. 3. He most likely has baseline cognitive deficits. But the encephalopathy from the liver failure has resolved. We will continue lactulose. 4. SVT. Controlled rate with Cardizem. 4. Urinary incontinence. Has Calix catheter, on Flomax. 6. Iron deficiency anemia. Is on iron replacement. Last CBC March 24. We will recheck tomorrow. 7. Staph aureus bacteremia. He was treated with an abundance of caution with Zosyn for 6 days. Especially since he had an elevated white cell count was encephalopathic. After stopping Zosyn, there is been no recurrence of fever, chills.
[2021-03-29] MEDS: PANTOPRAZOLE 40 MG TABLET PO SCH (05:57)
[2021-03-29] MEDS: FUROSEMIDE 20 MG TABLET PO SCH (09:12)
[2021-03-29] MEDS: diltiaZEM CD 120 MG CAPSULE PO SCH (09:12)
[2021-03-29] MEDS: THIAMINE 100 MG TABLET PO SCH (09:12)
[2021-03-29] MEDS: PROPRANOLOL 10 MG TABLET PO SCH ×2 (09:12→20:21)
[2021-03-29] MEDS: PRENATAL VITAMIN TABLET PO SCH (09:12)
[2021-03-29] MEDS: SPIRONOLACTONE 25 MG TABLET PO SCH (09:13)
[2021-03-29] MEDS: SACCHAROMYCES BOULARDII 250 MG CAPSULE PO SCH (09:13)
[2021-03-29] MEDS: FERROUS GLUCONATE 324 MG TABLET PO SCH (09:13)
[2021-03-29] MEDS: LACTULOSE 10 GM /15 ML UDC PO SCH (09:13)
[2021-03-29] MEDS: TAMSULOSIN 0.4 MG CAPSULE PO SCH (09:13)
[2021-03-29] MEDS: SODIUM CHLORIDE FLUSH 0.9% 10 ML SYRINGE IVP SCH ×2 (09:14→20:21)
--- NOTE | 2021-03-29 14:36 | PROVIDER PROGRESS NOTE ---
Assessment/Plan - Problem List (1) End stage liver disease Assessment/Plan: He is doing very well, and clinically stable. pt ate 100% his diet and walk on the hallway. 2. Acute renal failure pt had a creatinine that was 10.3 on admission. That was February 28. With hydration, antibiotics, and nutrition his creatinine has been 0.9 to 1.0 starting March 15. we will check on tomorrow. 3. Metabolic encephalopathy his acute metabolic encephalopathy from the liver failure has resolved. We will continue lactulose. He likely has baseline of cognitive deficits and he is stable 4. SVT. controlled and resolved. Controlled rate with Cardizem. 5. Urinary incontinence. Has Calix catheter, on Flomax. 6. Iron deficiency anemia. pt's anemia likely combination of his chronic disease and liver failure. pt was found to have iron deficiency as well. pt is on iron replacement. Last CBC March 24. We will recheck tomorrow. 7. Staph aureus bacteremia. He was treated with an abundance of caution with Zosyn for 6 days. Especially since he had an elevated white cell count was encephalopathic. After stopping Zosyn, there is been no recurrence of fever, chills, WBC is at normal arrange. 8 problem related to social environment, unspecified Per social services manager's note, pt's daughter, Heide stated that the patient cannot return to the hotel cabins he was staying in previously. The hotel was planning to evict him by March 17 due to housekeeping being responsible for cleaning up patient's incontinence in the room. pt is pending for nurse facility for his replacement. - Current Meds Current Meds: Current Medications Generic Name Dose Route Start Last Admin Trade Name Rosalina PRN Reason Stop Dose Admin Diltiazem HCl 120 mg 03/07/21 11:00 03/29/21 09:12 Diltiazem Cd 120 Mg Capsule PO 120 mg DAILY [facility] Administration Ferrous Gluconate 324 mg 03/09/21 09:00 03/29/21 09:13 Ferrous Gluconate 324 Mg Tablet PO 324 mg DAILYWM [facility] Administration Furosemide 20 mg 03/14/21 09:00 03/29/21 09:12 Furosemide 20 Mg Tablet PO 20 mg DAILY [facility] Administration Lactulose 10 gm 03/06/21 09:00 03/29/21 09:13 Lactulose 10 Gm /15 Ml Udc PO 10 gm DAILY [facility] Administration Morphine Sulfate 2 mg 03/03/21 00:20 03/05/21 03:27 Morphine 2 Mg/Ml Carpuject IVP 2 mg Q2HR PRN Administration PAIN Multi-Ingredient Ointment 1 applic 03/02/21 03:51 03/22/21 11:40 Zinc Oxide 20% Oint 30 Gm Tube TOP 1 applic PRN PRN Administration Skin Care Pantoprazole Sodium 40 mg 03/07/21 07:00 03/29/21 05:57 Pantoprazole 40 Mg Tablet PO 40 mg QDAC [facility] Administration Multivit/Folic Acid/Iron 1 tab 03/05/21 12:00 03/29/21 09:12 Vitamin Tablet PO 1 tab DAILYWM [facility] Administration Propranolol HCl 10 mg 03/14/21 09:08 03/29/21 09:12 Propranolol 10 Mg Tablet PO 10 mg BID [facility] Administration Saccharomyces Boulardii 250 mg 03/11/21 09:00 03/29/21 09:13 Saccharomyces Boulardii 250 Mg Capsule PO 250 mg DAILY [facility] Administration Sodium Chloride 10 ml 03/01/21 21:15 03/05/21 06:07 Sodium Chloride Flush 0.9% 10 Ml Syringe IVP 10 ml PRN PRN Administration NEEDED PER PROVIDER ORDERS Sodium Chloride 10 ml 03/02/21 01:00 03/29/21 09:14 Sodium Chloride Flush 0.9% 10 Ml Syringe IVP 10 ml 0100,0900,1700 [facility] Administration Spironolactone 25 mg 03/14/21 09:00 03/29/21 09:13 Spironolactone 25 Mg Tablet PO 25 mg DAILY [facility] Administration Tamsulosin HCl 0.4 mg 03/09/21 09:00 03/29/21 09:13 Tamsulosin 0.4 Mg Capsule PO 0.4 mg DAILY [facility] Administration Thiamine HCl 100 mg 03/05/21 12:00 03/29/21 09:12 Thiamine 100 Mg Tablet PO 100 mg DAILY [facility] Administration Zinc Oxide 113 gm 03/01/21 22:30 03/08/21 14:54 Cod Liver Oil/Zinc Oxide 113 Gm Tube TOP 1 applic PRN PRN Administration Skin Care - Lab Result Fish Bone Diagrams: 03/24/21 05:52 03/23/21 04:31 Subjective - Subjective Patient Reports: Feeling Better, Resting Comfortably Objective Vital Signs: Vital Signs - 24 hr 03/28/21 03/28/21 03/28/21 16:30 16:57 23:31 Temperature 37.4 C 37.4 C 37.1 C Heart Rate [ 91 95 87 Brachial] Respiratory 20 18 20 Rate Blood Pressure 118/54 L 114/64 108/56 L [Right Brachial artery] O2 Saturation 96 95 95 03/29/21 07:30 Temperature 37.1 C Heart Rate [ 73 Brachial] Respiratory 18 Rate Blood Pressure 115/54 L [Right Brachial artery] O2 Saturation 96 Oxygen O2 Source [With Activity] Room air O2 Source Room air I&O (Last 24 Hrs): Intake and Output Totals x24h 03/27/21 03/28/21 03/29/21 23:59 23:59 23:59 Intake Total 2720 2630 1780 Output Total 2600 2300 1525 Balance 120 330 255 General: Alert, Oriented x3, Cooperative, No acute distress HEENT: Atraumatic Neck: Supple Lymphatic: no adenopathy Neuro: Alert, Non Focal, Oriented Times 3 Cardiovascular: Regular rate, Normal S1, Normal S2 Respiratory: Chest non-tender, No respiratory distress Abdomen: Normal bowel sounds, Soft Extremities: Normal pulses - Results Results: Laboratory Results WBC 7.0 x10^3/uL (4.8-10.8) 03/24/21 05:52 RBC 3.24 10^6/uL (4.70-6.10) L 03/24/21 05:52 Hgb 8.0 g/dL (14.0-18.0) L 03/24/21 05:52 Hct 26.4 % (42.0-52.0) L 03/24/21 05:52 MCV 81.5 fL (80.0-94.0) 03/24/21 05:52 MCH 24.7 pg (27.0-31.0) L 03/24/21 05:52 MCHC 30.3 g/dL (32.0-36.0) L 03/24/21 05:52 RDW 22.9 % (12.0-15.0) H 03/24/21 05:52 Plt Count 162 10^3/uL (130-450) 03/24/21 05:52 MPV 10.5 fL (7.4-11.4) 03/24/21 05:52 Reticulocyte % (Auto) 2.31 % (0.5-2.3) H 03/09/21 05:41 Neut # (Auto) 5.1 10^3/uL (1.5-6.6) 03/24/21 05:52 Lymph # (Auto) 0.7 10^3/uL (1.5-3.5) L 03/24/21 05:52 [place] # (Auto) 1.0 10^3/uL (0.0-1.0) 03/24/21 05:52 Eos # (Auto) 0.2 10^3/uL (0.0-0.7) 03/24/21 05:52 Baso # (Auto) 0.0 10^3/uL (0.0-0.1) 03/24/21 05:52 Absolute Nucleated RBC 0.00 x10^3/uL 03/24/21 05:52 Total Counted 100 03/08/21 04:09 Band Neuts % (Manual) Not Reportable 03/09/21 05:41 Abnorm Lymph % (Manual) Not Reportable 03/09/21 05:41 Nucleated RBC % 0.0 /100WBC 03/24/21 05:52 Neutrophils # (Manual) Not Reportable 03/09/21 05:41 Lymphocytes # (Manual) Not Reportable 03/09/21 05:41 Monocytes # (Manual) Not Reportable 03/09/21 05:41 Eosinophils # (Manual) Not Reportable 03/09/21 05:41 Basophils # (Manual) Not Reportable 03/09/21 05:41 Differential Comment MANUAL=AUTO DIFF 03/09/21 05:41 Manual Slide Review Indicated 03/24/21 05:52 WBC Morphology NORMAL APPEARANCE (NORMAL) 03/21/21 05:34 Platelet Estimate NORMAL (130-450,000) (NORMAL) 03/24/21 05:52 Platelet Morphology NORMAL APPEARANCE (NORMAL) 03/22/21 05:30 RBC Morph Micro Appear 2+ ANISOCYTOSIS (NORMAL) 2+ HYPOCHROMASIA (NORMAL) 1+ OVALOCYTES (NORMAL) 03/24/21 05:52 RBC Morph Micro Appear 2+ ANISOCYTOSIS (NORMAL) 2+ HYPOCHROMASIA (NORMAL) 1+ OVALOCYTES (NORMAL) 03/24/21 05:52 RBC Morph Micro Appear 2+ ANISOCYTOSIS (NORMAL) 2+ HYPOCHROMASIA (NORMAL) 1+ OVALOCYTES (NORMAL) 03/24/21 05:52 Absolute Retic 0.073 10^6/uL (0.020-0.110) 03/09/21 05:41 PT 16.3 secs (9.9-12.6) H 02/28/21 12:34 INR 1.5 (0.8-1.2) H 02/28/21 12:34 APTT 30.2 secs (24.9-33.3) 02/28/21 12:34 Bld Gas Analysis Time 2320 02/28/21 23:15 Sample Site RIGHT RADIAL 02/28/21 23:15 ABG pH 7.41 (7.35-7.45) 02/28/21 23:15 ABG pCO2 20 mmHg (34-45) L* 02/28/21 23:15 ABG pO2 89 mmHg (80-100) 02/28/21 23:15 ABG HCO3 12.5 mmol/L (22.0-26.0) L 02/28/21 23:15 ABG Total CO2 13.1 MMOL/L (21.0-29.0) L 02/28/21 23:15 ABG O2 Saturation 96 % (94-98) 02/28/21 23:15 ABG Base Excess -10.5 mmol/L (-2.0-3.0) L 02/28/21 23:15 Thanh Test POSITIVE 02/28/21 23:15 VBG pH 7.396 (7.31-7.41) 03/02/21 16:45 VBG pCO2 19.0 mmHg (41-51) L 02/28/21 22:02 VBG pO2 75.4 mmHg (25-47) H 02/28/21 22:02 VBG HCO3 11.7 mmol/L (23-28) L 02/28/21 22:02 VBG Total CO2 12.3 mmol/L (24-29) L 02/28/21 22:02 VBG O2 Saturation 93.4 % (60-80) H 02/28/21 22:02 VBG Base Excess -11.0 mmol/L (-2 - +2) L 02/28/21 22:02 Ionized Calcium 1.05 mmol/L (1.15-1.33) L 03/02/21 16:45 O2 Delivery Device NON REBREATHER MASK 02/28/21 23:15 FiO2 21.00 02/28/21 23:15 Sodium 137 mmol/L (135-145) 03/23/21 04:31 Potassium 3.7 mmol/L (3.5-5.0) 03/23/21 04:31 Chloride 101 mmol/L (101-111) 03/23/21 04:31 Carbon Dioxide 27 mmol/L (21-32) 03/23/21 04:31 Anion Gap 9.0 (6-13) 03/23/21 04:31 BUN 14 mg/dL (6-20) 03/23/21 04:31 Creatinine 0.9 mg/dL (0.6-1.2) 03/23/21 04:31 Estimated GFR (MDRD) 83 (>89) L 03/23/21 04:31 Glucose 105 mg/dL (70-100) H 03/23/21 04:31 POC Whole Bld Glucose 134 mg/dL (70 - 100) H 02/28/21 12:27 Lactic Acid 2.5 mmol/L (0.5-2.2) H 02/28/21 21:44 Calcium 8.4 mg/dL (8.5-10.3) L 03/23/21 04:31 Phosphorus 3.4 mg/dL (2.5-4.6) 03/09/21 05:41 Magnesium 1.9 mg/dL (1.7-2.8) 03/08/21 04:09 Iron 18 ug/dL (45-182) L 03/09/21 05:41 TIBC 193 ug/dL (250-450) L 03/09/21 05:41 % Saturation 9 % (20-50) L 03/09/21 05:41 Transferrin 138 mg/dL (180-329) L 03/09/21 05:41 Ferritin 110.3 ng/mL (23.9-336.2) 03/09/21 05:41 Total Bilirubin 2.7 mg/dL (0.2-1.0) H 03/05/21 04:48 AST 19 IU/L (10-42) 03/05/21 04:48 ALT 15 IU/L (10-60) 03/05/21 04:48 Alkaline Phosphatase 100 IU/L (42-121) 03/05/21 04:48 Ammonia 22.0 umol/L (7-35) 03/07/21 11:55 Lactate Dehydrogenase 135 IU/L (91-225) 03/09/21 05:41 Total Creatine Kinase 36 IU/L (22-269) 02/28/21 12:34 Troponin I High Sens 17.5 ng/L (2.3-19.7) 03/03/21 16:42 B-Natriuretic Peptide 313 pg/mL (5-100) H 03/01/21 02:39 Total Protein 6.0 g/dL (6.7-8.2) L 03/05/21 04:48 Albumin 2.1 g/dL (3.2-5.5) L 03/05/21 04:48 Globulin 3.9 g/dL (2.1-4.2) 03/05/21 04:48 Albumin/Globulin Ratio 0.5 (1.0-2.2) L 03/05/21 04:48 Lipase 251 U/L (22-51) H 02/28/21 21:44 Vitamin B12 1216 pg/mL (180-914) H 03/09/21 05:41 Folate 32.00 ng/mL (5.90 - >24.8) 03/09/21 05:41 TSH 2.35 uIU/mL (0.34-5.60) 02/28/21 12:34 Free T4 0.69 ng/dL (0.58-1.64) 02/28/21 12:34 Urine Color DARK YELLOW 02/28/21 13:03 Urine Clarity CLOUDY (CLEAR) 02/28/21 13:03 Urine pH 6.0 PH (5.0-7.5) 02/28/21 13:03 Ur Specific [place] 1.015 (1.002-1.030) 02/28/21 13:03 Urine Protein NEGATIVE mg/dL (NEGATIVE) 02/28/21 13:03 Urine Glucose (UA) NEGATIVE mg/dL (NEGATIVE) 02/28/21 13:03 Urine Ketones NEGATIVE mg/dL (NEGATIVE) 02/28/21 13:03 Urine Occult Blood LARGE (NEGATIVE) H 02/28/21 13:03 Urine Nitrite NEGATIVE (NEGATIVE) 02/28/21 13:03 Urine Bilirubin NEGATIVE (NEGATIVE) 02/28/21 13:03 Urine Urobilinogen 1 (NORMAL) E.U./dL (NORMAL) 02/28/21 13:03 Ur Leukocyte Esterase MODERATE (NEGATIVE) H 02/28/21 13:03 Urine RBC 6-10 /HPF (0-5) H 02/28/21 13:03 Urine WBC >25 /HPF (0-3) H 02/28/21 13:03 Ur Squamous Epith Cells NONE SEEN (<= Few) 02/28/21 13:03 Urine Bacteria Few /HPF (None Seen) 02/28/21 13:03 Ur Microscopic Review INDICATED 02/28/21 13:03 Urine Culture Comments INDICATED 02/28/21 13:03 Nasal Adenovirus (PCR) NOT DETECTED 02/28/21 14:05 Nasal B. parapertussis DNA (PCR) NOT DETECTED 02/28/21 14:05 Nasal Coronavir 229E PCR NOT DETECTED 02/28/21 14:05 Nasal Coronavir HKU1 PCR NOT DETECTED 02/28/21 14:05 Nasal Coronavir NL63 PCR NOT DETECTED 02/28/21 14:05 Nasal Coronavir OC43 PCR NOT DETECTED 02/28/21 14:05 Nasal Enterovir/Rhinovir PCR NOT DETECTED 02/28/21 14:05 Nasal Influenza B PCR NOT DETECTED 02/28/21 14:05 Nasal Influenza A PCR NOT DETECTED 02/28/21 14:05 Nasal Parainfluen 1 PCR NOT DETECTED 02/28/21 14:05 Nasal Parainfluen 2 PCR NOT DETECTED 02/28/21 14:05 Nasal Parainfluen 3 PCR NOT DETECTED 02/28/21 14:05 Nasal Parainfluen 4 PCR NOT DETECTED 02/28/21 14:05 Nasal RSV (PCR) NOT DETECTED 02/28/21 14:05 Nasal Screen MRSA (PCR) NEGATIVE (NEGATIVE) 03/01/21 22:00 Nasal B.pertussis DNA PCR NOT DETECTED 02/28/21 14:05 Nasal C.pneumoniae (PCR) NOT DETECTED 02/28/21 14:05 Gregory Human Metapneumo PCR NOT DETECTED 02/28/21 14:05 Nasal M.pneumoniae (PCR) NOT DETECTED 02/28/21 14:05 Nasal SARS-CoV-2 (PCR) NOT DETECTED 02/28/21 14:05 Stl C. diff Tox B Gene NEGATIVE (NEGATIVE) 03/03/21 00:30 Salicylates < 6.0 mg/dL 02/28/21 12:34 Urine Opiates Screen NEGATIVE (NEGATIVE) 02/28/21 13:03 Ur Oxycodone Screen NEGATIVE (NEGATIVE) 02/28/21 13:03 Urine Methadone Screen NEGATIVE (NEGATIVE) 02/28/21 13:03 Ur Propoxyphene Screen NEGATIVE (NEGATIVE) 02/28/21 13:03 Acetaminophen < 10 ug/mL (10-30) L 02/28/21 12:34 Ur Barbiturates Screen NEGATIVE (NEGATIVE) 02/28/21 13:03 Ur Tricyclics Screen NEGATIVE (NEGATIVE) 02/28/21 13:03 Ur Phencyclidine Scrn NEGATIVE (NEGATIVE) 02/28/21 13:03 Ur Amphetamine Screen NEGATIVE (NEGATIVE) 02/28/21 13:03 U Methamphetamines Scrn NEGATIVE (NEGATIVE) 02/28/21 13:03 U Benzodiazepines Scrn NEGATIVE (NEGATIVE) 02/28/21 13:03 Urine Cocaine Screen NEGATIVE (NEGATIVE) 02/28/21 13:03 U Cannabinoids Screen NEGATIVE (NEGATIVE) 02/28/21 13:03 Ethyl Alcohol < 5.0 mg/dL 02/28/21 12:34 Blood Type A POSITIVE 03/19/21 08:10 Antibody Screen NEGATIVE 03/19/21 08:10 Crossmatch IS Only See Detail 03/19/21 08:10 - Procedures Procedures: Procedures DRAINAGE OF PERITONEAL CAVITY, PERCUTANEOUS APPROACH, DIAGN (12/19/15) TRANSFUSE NONAUT RED BLOOD CELLS IN PERIPH VEIN, PERC (12/19/15) Sepsis Event Note (H) - Evaluation Possible source of Sepsis: positive: Genitourinary, Skin/soft tissue ABX Reporting Has patient been on IV antibiotics over the past 48 hours?: No Current Medications - Current Medications Current Medications: Active Medications Diltiazem HCl (Diltiazem Cd 120 Mg Capsule) 120 mg PO DAILY [facility] Last Admin: 03/29/21 09:12 Dose: 120 mg Documented by: Ferrous Gluconate (Ferrous Gluconate 324 Mg Tablet) 324 mg PO DAILYWM [facility] Last Admin: 03/29/21 09:13 Dose: 324 mg Documented by: Furosemide (Furosemide 20 Mg Tablet) 20 mg PO DAILY [facility] Last Admin: 03/29/21 09:12 Dose: 20 mg Documented by: Lactulose (Lactulose 10 Gm /15 Ml Udc) 10 gm PO DAILY [facility] Last Admin: 03/29/21 09:13 Dose: 10 gm Documented by: Morphine Sulfate (Morphine 2 Mg/Ml Carpuject) 2 mg IVP Q2HR PRN PRN Reason: PAIN Last Admin: 03/05/21 03:27 Dose: 2 mg Documented by: Multi-Ingredient Ointment (Zinc Oxide 20% Oint 30 Gm Tube) 1 applic TOP PRN PRN PRN Reason: Skin Care Last Admin: 03/22/21 11:40 Dose: 1 applic Documented by: Ondansetron HCl (Ondansetron 4 Mg/2 Ml Vial) 4 mg IVP Q6HR PRN PRN Reason: Nausea / Vomiting Pantoprazole Sodium (Pantoprazole 40 Mg Tablet) 40 mg PO QDAC [facility] Last Admin: 03/29/21 05:57 Dose: 40 mg Documented by: Multivit/Folic Acid/Iron ( Vitamin Tablet) 1 tab PO DAILYWM [facility] Last Admin: 03/29/21 09:12 Dose: 1 tab Documented by: Propranolol HCl (Propranolol 10 Mg Tablet) 10 mg PO BID [facility] Last Admin: 03/29/21 09:12 Dose: 10 mg Documented by: Saccharomyces Boulardii (Saccharomyces Boulardii 250 Mg Capsule) 250 mg PO DAILY [facility] Last Admin: 03/29/21 09:13 Dose: 250 mg Documented by: Sodium Chloride (Sodium Chloride Flush 0.9% 10 Ml Syringe) 10 ml IVP PRN PRN PRN Reason: NEEDED PER PROVIDER ORDERS Last Admin: 03/05/21 06:07 Dose: 10 ml Documented by: Sodium Chloride (Sodium Chloride Flush 0.9% 10 Ml Syringe) 10 ml IVP 0100,0900,1700 [facility] Last Admin: 03/29/21 09:14 Dose: 10 ml Documented by: Spironolactone (Spironolactone 25 Mg Tablet) 25 mg PO DAILY [facility] Last Admin: 03/29/21 09:13 Dose: 25 mg Documented by: Tamsulosin HCl (Tamsulosin 0.4 Mg Capsule) 0.4 mg PO DAILY [facility] Last Admin: 03/29/21 09:13 Dose: 0.4 mg Documented by: Thiamine HCl (Thiamine 100 Mg Tablet) 100 mg PO DAILY [facility] Last Admin: 03/29/21 09:12 Dose: 100 mg Documented by: Zinc Oxide (Cod Liver Oil/Zinc Oxide 113 Gm Tube) 113 gm TOP PRN PRN PRN Reason: Skin Care Last Admin: 03/08/21 14:54 Dose: 1 applic Documented by: Furosemide [Lasix] 20 mg PO DAILY 07/31/20 Propranolol [Inderal] 10 mg PO BID 07/31/20 Spironolactone [Aldactone] 25 mg PO DAILY 07/31/20
[2021-03-30] MEDS: SODIUM CHLORIDE FLUSH 0.9% 10 ML SYRINGE IVP SCH ×3 (05:12→17:31)
[2021-03-30 06:12] LABS: BASOPHILS % (AUTO) 0.6 %; EOSINOPHILS # (AUTO) 0.2 10^3/uL (0.0-0.7); EOSINOPHILS % (AUTO) 2.5 %; HCT - HEMATOCRIT 25.9 % (42.0-52.0); LYMPHOCYTES # (AUTO) 0.7 10^3/uL (1.5-3.5); LYMPHOCYTES % (AUTO) 11.5 %; MEAN CORPUSCULAR HEMOGLOBIN 25.2 pg (27.0-31.0); MEAN CORPUSCULAR HGB CONC 30.9 g/dL (32.0-36.0); MEAN CORPUSCULAR VOLUME 81.4 fL (80.0-94.0); MEAN PLATELET VOLUME 11.1 fL (7.4-11.4); MONOCYTES # (AUTO) 0.9 10^3/uL (0.0-1.0); MONOCYTES % (AUTO) 14.6 %; NEUTROPHILS # (AUTO) 4.5 10^3/uL (1.5-6.6); NEUTROPHILS % (AUTO) 70.5 %; PLT - PLATELET COUNT 172 10^3/uL (130-450); RED BLOOD COUNT 3.18 10^6/uL (4.70-6.10); RED CELL DISTRIBUTION WIDTH 21.6 % (12.0-15.0); WHITE BLOOD COUNT 6.4 x10^3/uL (4.8-10.8)
[2021-03-30 06:16] LABS: CALCIUM 8.8 mg/dL (8.5-10.3); CREATININE 0.9 mg/dL (0.6-1.2); POTASSIUM 3.8 mmol/L (3.5-5.0)
[2021-03-30 06:23] LABS: SLIDE REVIEW? Indicated
[2021-03-30] MEDS: PANTOPRAZOLE 40 MG TABLET PO SCH (07:18)
[2021-03-30 07:27] LABS: PLATELET ESTIMATE, MANUAL NORMAL (130-450,000) (NORMAL); PLATELET MORPHOLOGY NORMAL APPEARANCE (NORMAL)
[2021-03-30] MEDS ORDERED: IBUPROFEN 400 MG TABLET PO PRN (08:46)
[2021-03-30] MEDS: FUROSEMIDE 20 MG TABLET PO SCH (09:04)
[2021-03-30] MEDS: SACCHAROMYCES BOULARDII 250 MG CAPSULE PO SCH (09:04)
[2021-03-30] MEDS: PRENATAL VITAMIN TABLET PO SCH (09:04)
[2021-03-30] MEDS: diltiaZEM CD 120 MG CAPSULE PO SCH (09:05)
[2021-03-30] MEDS: PROPRANOLOL 10 MG TABLET PO SCH ×2 (09:05→21:33)
[2021-03-30] MEDS: THIAMINE 100 MG TABLET PO SCH (09:05)
[2021-03-30] MEDS: LACTULOSE 10 GM /15 ML UDC PO SCH (09:05)
[2021-03-30] MEDS: SPIRONOLACTONE 25 MG TABLET PO SCH (09:05)
[2021-03-30] MEDS: FERROUS GLUCONATE 324 MG TABLET PO SCH (09:05)
[2021-03-30] MEDS: TAMSULOSIN 0.4 MG CAPSULE PO SCH (09:05)
--- NOTE | 2021-03-30 11:39 | PROVIDER PROGRESS NOTE ---
Assessment/Plan - Problem List (1) End stage liver disease Assessment/Plan: 03-30, pt continue doing well, consult with social media developer for Disposition planning. He is doing very well, and clinically stable. pt ate 100% his diet and walk on the hallway. 2. Acute renal failure 03-30, repeated lab test show resolved. pt had a creatinine that was 10.3 on admission. That was February 28. With hydration, antibiotics, and nutrition his creatinine has been 0.9 to 1.0 starting March 15. we will check on tomorrow. 3. Metabolic encephalopathy 03-30 resolved as his baseline. his acute metabolic encephalopathy from the liver failure has resolved. We will continue lactulose. He likely has baseline of cognitive deficits and he is stable 4. SVT. controlled and resolved. Controlled rate with Cardizem. 5. Urinary incontinence. Has Calix catheter, on Flomax. 6. Iron deficiency anemia. 03-30 stable, HGB is 8.0 pt's anemia likely combination of his chronic disease and liver failure. pt was found to have iron deficiency as well. pt is on iron replacement. Last CBC March 24. We will recheck tomorrow. 7. Staph aureus bacteremia. resolved. repeat blood culture is negative for bacteremia. it is likely from contamination. He was treated with an abundance of caution with Zosyn for 6 days. Especially since he had an elevated white cell count was encephalopathic. After stopping Zosyn, there is been no recurrence of fever, chills, WBC is at normal arrange. 8 problem related to social environment, unspecified Per social media developer's note, pt's daughter, Heide stated that the patient cannot return to the hotel cabins he was staying in previously. The hotel was planning to evict him by March 17 due to housekeeping being responsible for cleaning up patient's incontinence in the room. pt is pending for nurse facility for his replacement. - Current Meds Current Meds: Current Medications Generic Name Dose Route Start Last Admin Trade Name Freq PRN Reason Stop Dose Admin Diltiazem HCl 120 mg 03/07/21 11:00 03/30/21 09:05 Diltiazem Cd 120 Mg Capsule PO 120 mg DAILY TRACI Administration Ferrous Gluconate 324 mg 03/09/21 09:00 03/30/21 09:05 Ferrous Gluconate 324 Mg Tablet PO 324 mg DAILYWM TRACI Administration Furosemide 20 mg 03/14/21 09:00 03/30/21 09:04 Furosemide 20 Mg Tablet PO 20 mg DAILY TRACI Administration Ibuprofen 400 mg 03/30/21 08:46 03/30/21 09:04 Ibuprofen 400 Mg Tablet PO 400 mg Q6HR PRN Administration PAIN Lactulose 10 gm 03/06/21 09:00 03/30/21 09:05 Lactulose 10 Gm /15 Ml Udc PO 10 gm DAILY TRACI Administration Morphine Sulfate 2 mg 03/03/21 00:20 03/05/21 03:27 Morphine 2 Mg/Ml Carpuject IVP 2 mg Q2HR PRN Administration PAIN Multi-Ingredient Ointment 1 applic 03/02/21 03:51 03/22/21 11:40 Zinc Oxide 20% Oint 30 Gm Tube TOP 1 applic PRN PRN Administration Skin Care Pantoprazole Sodium 40 mg 03/07/21 07:00 03/30/21 07:18 Pantoprazole 40 Mg Tablet PO 40 mg QDAC TRACI Administration Multivit/Folic Acid/Iron 1 tab 03/05/21 12:00 03/30/21 09:04 Vitamin Tablet PO 1 tab DAILYWM TRAIC Administration Propranolol HCl 10 mg 03/14/21 09:08 03/30/21 09:05 Propranolol 10 Mg Tablet PO 10 mg BID TRACI Administration Saccharomyces Boulardii 250 mg 03/11/21 09:00 03/30/21 09:04 Saccharomyces Boulardii 250 Mg Capsule PO 250 mg DAILY TRACI Administration Sodium Chloride 10 ml 03/01/21 21:15 03/05/21 06:07 Sodium Chloride Flush 0.9% 10 Ml Syringe IVP 10 ml PRN PRN Administration NEEDED PER PROVIDER ORDERS Sodium Chloride 10 ml 03/02/21 01:00 03/30/21 09:05 Sodium Chloride Flush 0.9% 10 Ml Syringe IVP 10 ml 0100,0900,1700 TRACI Administration Spironolactone 25 mg 03/14/21 09:00 03/30/21 09:05 Spironolactone 25 Mg Tablet PO 25 mg DAILY TRACI Administration Tamsulosin HCl 0.4 mg 03/09/21 09:00 03/30/21 09:05 Tamsulosin 0.4 Mg Capsule PO 0.4 mg DAILY TRACI Administration Thiamine HCl 100 mg 03/05/21 12:00 03/30/21 09:05 Thiamine 100 Mg Tablet PO 100 mg DAILY TRACI Administration Zinc Oxide 113 gm 03/01/21 22:30 03/08/21 14:54 Cod Liver Oil/Zinc Oxide 113 Gm Tube TOP 1 applic PRN PRN Administration Skin Care - Lab Result Fish Bone Diagrams: 03/30/21 05:31 03/30/21 05:31 - Additional Planning My Orders: My Active Orders 03/30/21 08:46 Ibuprofen [Motrin] 400 mg PO Q6HR PRN Subjective - Subjective Patient Reports: Feeling Better Objective Vital Signs: Vital Signs - 24 hr 03/29/21 03/29/21 03/30/21 16:00 23:37 07:25 Temperature 37.2 C 37.2 C 36.6 C Heart Rate [ 79 76 Brachial] Heart Rate [ 91 Radial] Respiratory 20 20 16 Rate Blood Pressure 115/49 L 110/57 L 111/58 L [Right Brachial artery] O2 Saturation 96 95 96 03/30/21 09:05 Temperature Heart Rate [ Brachial] Heart Rate [ 83 Radial] Respiratory Rate Blood Pressure 112/56 L [Right Brachial artery] O2 Saturation Oxygen O2 Source [With Activity] Room air O2 Source Room air I&O (Last 24 Hrs): Intake and Output Totals x24h 03/28/21 03/29/21 03/30/21 23:59 23:59 23:59 Intake Total 2630 2780 476 Output Total 2300 2250 1000 Balance 330 530 -524 General: Alert, Oriented x3, Cooperative, No acute distress HEENT: Atraumatic, PERRLA Neck: Supple Lymphatic: no adenopathy Neuro: Alert Cardiovascular: Regular rate, Normal S1, Normal S2 Respiratory: Chest non-tender, No respiratory distress Abdomen: Normal bowel sounds, Soft Extremities: Normal pulses - Results Results: Laboratory Results WBC 6.4 x10^3/uL (4.8-10.8) 03/30/21 05:31 RBC 3.18 10^6/uL (4.70-6.10) L 03/30/21 05:31 Hgb 8.0 g/dL (14.0-18.0) L 03/30/21 05:31 Hct 25.9 % (42.0-52.0) L 03/30/21 05:31 MCV 81.4 fL (80.0-94.0) 03/30/21 05:31 MCH 25.2 pg (27.0-31.0) L 03/30/21 05:31 MCHC 30.9 g/dL (32.0-36.0) L 03/30/21 05:31 RDW 21.6 % (12.0-15.0) H 03/30/21 05:31 Plt Count 172 10^3/uL (130-450) 03/30/21 05:31 MPV 11.1 fL (7.4-11.4) 03/30/21 05:31 Reticulocyte % (Auto) 2.31 % (0.5-2.3) H 03/09/21 05:41 Neut # (Auto) 4.5 10^3/uL (1.5-6.6) 03/30/21 05:31 Lymph # (Auto) 0.7 10^3/uL (1.5-3.5) L 03/30/21 05:31 [place] # (Auto) 0.9 10^3/uL (0.0-1.0) 03/30/21 05:31 Eos # (Auto) 0.2 10^3/uL (0.0-0.7) 03/30/21 05:31 Baso # (Auto) 0.0 10^3/uL (0.0-0.1) 03/30/21 05:31 Absolute Nucleated RBC 0.00 x10^3/uL 03/30/21 05:31 Total Counted 100 03/08/21 04:09 Band Neuts % (Manual) Not Reportable 03/09/21 05:41 Abnorm Lymph % (Manual) Not Reportable 03/09/21 05:41 Nucleated RBC % 0.0 /100WBC 03/30/21 05:31 Neutrophils # (Manual) Not Reportable 03/09/21 05:41 Lymphocytes # (Manual) Not Reportable 03/09/21 05:41 Monocytes # (Manual) Not Reportable 03/09/21 05:41 Eosinophils # (Manual) Not Reportable 03/09/21 05:41 Basophils # (Manual) Not Reportable 03/09/21 05:41 Differential Comment MANUAL=AUTO DIFF 03/09/21 05:41 Manual Slide Review Indicated 03/30/21 05:31 WBC Morphology NORMAL APPEARANCE (NORMAL) 03/21/21 05:34 Platelet Estimate NORMAL (130-450,000) (NORMAL) 03/30/21 05:31 Platelet Morphology NORMAL APPEARANCE (NORMAL) 03/30/21 05:31 RBC Morph Micro Appear 2+ HYPOCHROMASIA (NORMAL) 1+ ANISOCYTOSIS (NORMAL) 03/30/21 05:31 RBC Morph Micro Appear 2+ HYPOCHROMASIA (NORMAL) 1+ ANISOCYTOSIS (NORMAL) 03/30/21 05:31 Absolute Retic 0.073 10^6/uL (0.020-0.110) 03/09/21 05:41 PT 16.3 secs (9.9-12.6) H 02/28/21 12:34 INR 1.5 (0.8-1.2) H 02/28/21 12:34 APTT 30.2 secs (24.9-33.3) 02/28/21 12:34 Bld Gas Analysis Time 2320 02/28/21 23:15 Sample Site RIGHT RADIAL 02/28/21 23:15 ABG pH 7.41 (7.35-7.45) 02/28/21 23:15 ABG pCO2 20 mmHg (34-45) L* 02/28/21 23:15 ABG pO2 89 mmHg (80-100) 02/28/21 23:15 ABG HCO3 12.5 mmol/L (22.0-26.0) L 02/28/21 23:15 ABG Total CO2 13.1 MMOL/L (21.0-29.0) L 02/28/21 23:15 ABG O2 Saturation 96 % (94-98) 02/28/21 23:15 ABG Base Excess -10.5 mmol/L (-2.0-3.0) L 02/28/21 23:15 Thanh Test POSITIVE 02/28/21 23:15 VBG pH 7.396 (7.31-7.41) 03/02/21 16:45 VBG pCO2 19.0 mmHg (41-51) L 02/28/21 22:02 VBG pO2 75.4 mmHg (25-47) H 02/28/21 22:02 VBG HCO3 11.7 mmol/L (23-28) L 02/28/21 22:02 VBG Total CO2 12.3 mmol/L (24-29) L 02/28/21 22:02 VBG O2 Saturation 93.4 % (60-80) H 02/28/21 22:02 VBG Base Excess -11.0 mmol/L (-2 - +2) L 02/28/21 22:02 Ionized Calcium 1.05 mmol/L (1.15-1.33) L 03/02/21 16:45 O2 Delivery Device NON REBREATHER MASK 02/28/21 23:15 FiO2 21.00 02/28/21 23:15 Sodium 135 mmol/L (135-145) 03/30/21 05:31 Potassium 3.8 mmol/L (3.5-5.0) 03/30/21 05:31 Chloride 102 mmol/L (101-111) 03/30/21 05:31 Carbon Dioxide 25 mmol/L (21-32) 03/30/21 05:31 Anion Gap 8.0 (6-13) 03/30/21 05:31 BUN 17 mg/dL (6-20) 03/30/21 05:31 Creatinine 0.9 mg/dL (0.6-1.2) 03/30/21 05:31 Estimated GFR (MDRD) 83 (>89) L 03/30/21 05:31 Glucose 106 mg/dL (70-100) H 03/30/21 05:31 POC Whole Bld Glucose 134 mg/dL (70 - 100) H 02/28/21 12:27 Lactic Acid 2.5 mmol/L (0.5-2.2) H 02/28/21 21:44 Calcium 8.8 mg/dL (8.5-10.3) 03/30/21 05:31 Phosphorus 3.4 mg/dL (2.5-4.6) 03/09/21 05:41 Magnesium 1.9 mg/dL (1.7-2.8) 03/08/21 04:09 Iron 18 ug/dL (45-182) L 03/09/21 05:41 TIBC 193 ug/dL (250-450) L 03/09/21 05:41 % Saturation 9 % (20-50) L 03/09/21 05:41 Transferrin 138 mg/dL (180-329) L 03/09/21 05:41 Ferritin 110.3 ng/mL (23.9-336.2) 03/09/21 05:41 Total Bilirubin 2.7 mg/dL (0.2-1.0) H 03/05/21 04:48 AST 19 IU/L (10-42) 03/05/21 04:48 ALT 15 IU/L (10-60) 03/05/21 04:48 Alkaline Phosphatase 100 IU/L (42-121) 03/05/21 04:48 Ammonia 22.0 umol/L (7-35) 03/07/21 11:55 Lactate Dehydrogenase 135 IU/L (91-225) 03/09/21 05:41 Total Creatine Kinase 36 IU/L (22-269) 02/28/21 12:34 Troponin I High Sens 17.5 ng/L (2.3-19.7) 03/03/21 16:42 B-Natriuretic Peptide 313 pg/mL (5-100) H 03/01/21 02:39 Total Protein 6.0 g/dL (6.7-8.2) L 03/05/21 04:48 Albumin 2.1 g/dL (3.2-5.5) L 03/05/21 04:48 Globulin 3.9 g/dL (2.1-4.2) 03/05/21 04:48 Albumin/Globulin Ratio 0.5 (1.0-2.2) L 03/05/21 04:48 Lipase 251 U/L (22-51) H 02/28/21 21:44 Vitamin B12 1216 pg/mL (180-914) H 03/09/21 05:41 Folate 32.00 ng/mL (5.90 - >24.8) 03/09/21 05:41 TSH 2.35 uIU/mL (0.34-5.60) 02/28/21 12:34 Free T4 0.69 ng/dL (0.58-1.64) 02/28/21 12:34 Urine Color DARK YELLOW 02/28/21 13:03 Urine Clarity CLOUDY (CLEAR) 02/28/21 13:03 Urine pH 6.0 PH (5.0-7.5) 02/28/21 13:03 Ur Specific Damar 1.015 (1.002-1.030) 02/28/21 13:03 Urine Protein NEGATIVE mg/dL (NEGATIVE) 02/28/21 13:03 Urine Glucose (UA) NEGATIVE mg/dL (NEGATIVE) 02/28/21 13:03 Urine Ketones NEGATIVE mg/dL (NEGATIVE) 02/28/21 13:03 Urine Occult Blood LARGE (NEGATIVE) H 02/28/21 13:03 Urine Nitrite NEGATIVE (NEGATIVE) 02/28/21 13:03 Urine Bilirubin NEGATIVE (NEGATIVE) 02/28/21 13:03 Urine Urobilinogen 1 (NORMAL) E.U./dL (NORMAL) 02/28/21 13:03 Ur Leukocyte Esterase MODERATE (NEGATIVE) H 02/28/21 13:03 Urine RBC 6-10 /HPF (0-5) H 02/28/21 13:03 Urine WBC >25 /HPF (0-3) H 02/28/21 13:03 Ur Squamous Epith Cells NONE SEEN (<= Few) 02/28/21 13:03 Urine Bacteria Few /HPF (None Seen) 02/28/21 13:03 Ur Microscopic Review INDICATED 02/28/21 13:03 Urine Culture Comments INDICATED 02/28/21 13:03 Nasal Adenovirus (PCR) NOT DETECTED 02/28/21 14:05 Nasal B. parapertussis DNA (PCR) NOT DETECTED 02/28/21 14:05 Nasal Coronavir 229E PCR NOT DETECTED 02/28/21 14:05 Nasal Coronavir HKU1 PCR NOT DETECTED 02/28/21 14:05 Nasal Coronavir NL63 PCR NOT DETECTED 02/28/21 14:05 Nasal Coronavir OC43 PCR NOT DETECTED 02/28/21 14:05 Nasal Enterovir/Rhinovir PCR NOT DETECTED 02/28/21 14:05 Nasal Influenza B PCR NOT DETECTED 02/28/21 14:05 Nasal Influenza A PCR NOT DETECTED 02/28/21 14:05 Nasal Parainfluen 1 PCR NOT DETECTED 02/28/21 14:05 Nasal Parainfluen 2 PCR NOT DETECTED 02/28/21 14:05 Nasal Parainfluen 3 PCR NOT DETECTED 02/28/21 14:05 Nasal Parainfluen 4 PCR NOT DETECTED 02/28/21 14:05 Nasal RSV (PCR) NOT DETECTED 02/28/21 14:05 Nasal Screen MRSA (PCR) NEGATIVE (NEGATIVE) 03/01/21 22:00 Nasal B.pertussis DNA PCR NOT DETECTED 02/28/21 14:05 Nasal C.pneumoniae (PCR) NOT DETECTED 02/28/21 14:05 Gregory Human Metapneumo PCR NOT DETECTED 02/28/21 14:05 Nasal M.pneumoniae (PCR) NOT DETECTED 02/28/21 14:05 Nasal SARS-CoV-2 (PCR) NOT DETECTED 02/28/21 14:05 Stl C. diff Tox B Gene NEGATIVE (NEGATIVE) 03/03/21 00:30 Salicylates < 6.0 mg/dL 02/28/21 12:34 Urine Opiates Screen NEGATIVE (NEGATIVE) 02/28/21 13:03 Ur Oxycodone Screen NEGATIVE (NEGATIVE) 02/28/21 13:03 Urine Methadone Screen NEGATIVE (NEGATIVE) 02/28/21 13:03 Ur Propoxyphene Screen NEGATIVE (NEGATIVE) 02/28/21 13:03 Acetaminophen < 10 ug/mL (10-30) L 02/28/21 12:34 Ur Barbiturates Screen NEGATIVE (NEGATIVE) 02/28/21 13:03 Ur Tricyclics Screen NEGATIVE (NEGATIVE) 02/28/21 13:03 Ur Phencyclidine Scrn NEGATIVE (NEGATIVE) 02/28/21 13:03 Ur Amphetamine Screen NEGATIVE (NEGATIVE) 02/28/21 13:03 U Methamphetamines Scrn NEGATIVE (NEGATIVE) 02/28/21 13:03 U Benzodiazepines Scrn NEGATIVE (NEGATIVE) 02/28/21 13:03 Urine Cocaine Screen NEGATIVE (NEGATIVE) 02/28/21 13:03 U Cannabinoids Screen NEGATIVE (NEGATIVE) 02/28/21 13:03 Ethyl Alcohol < 5.0 mg/dL 02/28/21 12:34 Blood Type A POSITIVE 03/19/21 08:10 Antibody Screen NEGATIVE 03/19/21 08:10 Crossmatch IS Only See Detail 03/19/21 08:10 - Procedures Procedures: Procedures DRAINAGE OF PERITONEAL CAVITY, PERCUTANEOUS APPROACH, DIAGN (12/19/15) TRANSFUSE NONAUT RED BLOOD CELLS IN PERIPH VEIN, PERC (12/19/15) Sepsis Event Note (H) - Evaluation Possible source of Sepsis: positive: Genitourinary, Skin/soft tissue ABX Reporting Has patient been on IV antibiotics over the past 48 hours?: No Current Medications - Current Medications Current Medications: Active Medications Diltiazem HCl (Diltiazem Cd 120 Mg Capsule) 120 mg PO DAILY TRACI Last Admin: 03/30/21 09:05 Dose: 120 mg Documented by: Ferrous Gluconate (Ferrous Gluconate 324 Mg Tablet) 324 mg PO DAILYWM [facility] Last Admin: 03/30/21 09:05 Dose: 324 mg Documented by: Furosemide (Furosemide 20 Mg Tablet) 20 mg PO DAILY [facility] Last Admin: 03/30/21 09:04 Dose: 20 mg Documented by: Ibuprofen (Ibuprofen 400 Mg Tablet) 400 mg PO Q6HR PRN PRN Reason: PAIN Last Admin: 03/30/21 09:04 Dose: 400 mg Documented by: Lactulose (Lactulose 10 Gm /15 Ml Udc) 10 gm PO DAILY [facility] Last Admin: 03/30/21 09:05 Dose: 10 gm Documented by: Morphine Sulfate (Morphine 2 Mg/Ml Carpuject) 2 mg IVP Q2HR PRN PRN Reason: PAIN Last Admin: 03/05/21 03:27 Dose: 2 mg Documented by: Multi-Ingredient Ointment (Zinc Oxide 20% Oint 30 Gm Tube) 1 applic TOP PRN PRN PRN Reason: Skin Care Last Admin: 03/22/21 11:40 Dose: 1 applic Documented by: Ondansetron HCl (Ondansetron 4 Mg/2 Ml Vial) 4 mg IVP Q6HR PRN PRN Reason: Nausea / Vomiting Pantoprazole Sodium (Pantoprazole 40 Mg Tablet) 40 mg PO QDAC [facility] Last Admin: 03/30/21 07:18 Dose: 40 mg Documented by: Multivit/Folic Acid/Iron ( Vitamin Tablet) 1 tab PO DAILYWM [facility] Last Admin: 03/30/21 09:04 Dose: 1 tab Documented by: Propranolol HCl (Propranolol 10 Mg Tablet) 10 mg PO BID [facility] Last Admin: 03/30/21 09:05 Dose: 10 mg Documented by: Saccharomyces Boulardii (Saccharomyces Boulardii 250 Mg Capsule) 250 mg PO DAILY [facility] Last Admin: 03/30/21 09:04 Dose: 250 mg Documented by: Sodium Chloride (Sodium Chloride Flush 0.9% 10 Ml Syringe) 10 ml IVP PRN PRN PRN Reason: NEEDED PER PROVIDER ORDERS Last Admin: 03/05/21 06:07 Dose: 10 ml Documented by: Sodium Chloride (Sodium Chloride Flush 0.9% 10 Ml Syringe) 10 ml IVP 0100,0900,1700 [facility] Last Admin: 03/30/21 09:05 Dose: 10 ml Documented by: Spironolactone (Spironolactone 25 Mg Tablet) 25 mg PO DAILY [facility] Last Admin: 03/30/21 09:05 Dose: 25 mg Documented by: Tamsulosin HCl (Tamsulosin 0.4 Mg Capsule) 0.4 mg PO DAILY [facility] Last Admin: 03/30/21 09:05 Dose: 0.4 mg Documented by: Thiamine HCl (Thiamine 100 Mg Tablet) 100 mg PO DAILY [facility] Last Admin: 03/30/21 09:05 Dose: 100 mg Documented by: Zinc Oxide (Cod Liver Oil/Zinc Oxide 113 Gm Tube) 113 gm TOP PRN PRN PRN Reason: Skin Care Last Admin: 03/08/21 14:54 Dose: 1 applic Documented by: Furosemide [Lasix] 20 mg PO DAILY 07/31/20 Propranolol [Inderal] 10 mg PO BID 07/31/20 Spironolactone [Aldactone] 25 mg PO DAILY 07/31/20
[2021-03-31] MEDS: SODIUM CHLORIDE FLUSH 0.9% 10 ML SYRINGE IVP SCH ×4 (01:28→23:28)
[2021-03-31] MEDS: PANTOPRAZOLE 40 MG TABLET PO SCH (06:43)
[2021-03-31] MEDS: TAMSULOSIN 0.4 MG CAPSULE PO SCH (07:48)
[2021-03-31] MEDS: FERROUS GLUCONATE 324 MG TABLET PO SCH (07:48)
[2021-03-31] MEDS: THIAMINE 100 MG TABLET PO SCH (07:48)
[2021-03-31] MEDS: PRENATAL VITAMIN TABLET PO SCH (07:48)
[2021-03-31] MEDS: FUROSEMIDE 20 MG TABLET PO SCH (07:49)
[2021-03-31] MEDS: diltiaZEM CD 120 MG CAPSULE PO SCH (07:49)
[2021-03-31] MEDS: SPIRONOLACTONE 25 MG TABLET PO SCH (07:49)
[2021-03-31] MEDS: SACCHAROMYCES BOULARDII 250 MG CAPSULE PO SCH (07:49)
[2021-03-31] MEDS: LACTULOSE 10 GM /15 ML UDC PO SCH (07:49)
[2021-03-31] MEDS: PROPRANOLOL 10 MG TABLET PO SCH ×2 (07:49→21:37)
--- NOTE | 2021-03-31 15:06 | PROVIDER PROGRESS NOTE ---
Assessment/Plan - Problem List (1) End stage liver disease Assessment/Plan: 03-31 Patient is hemodynamic stable, consult with hospice social worker for Disposition planning. 03-30, pt continue doing well, consult with hospice social worker for Disposition planning. He is doing very well, and clinically stable. pt ate 100% his diet and walk on the hallway. 2. Acute renal failure 03-30, repeated lab test show resolved. pt had a creatinine that was 10.3 on admission. That was February 28. With hydration, antibiotics, and nutrition his creatinine has been 0.9 to 1.0 starting March 15. we will check on tomorrow. 3. Metabolic encephalopathy 03-30 resolved as his baseline. his acute metabolic encephalopathy from the liver failure has resolved. We will continue lactulose. He likely has baseline of cognitive deficits and he is stable 4. SVT. controlled and resolved. Controlled rate with Cardizem. 5. Urinary incontinence. Has Calix catheter, on Flomax. 6. Iron deficiency anemia. 03-30 stable, HGB is 8.0 pt's anemia likely combination of his chronic disease and liver failure. pt was found to have iron deficiency as well. pt is on iron replacement. Last CBC O ctober 8. We will recheck tomorrow. 7. Staph aureus bacteremia. resolved. repeat blood culture is negative for bacteremia. it is likely from contamination. He was treated with an abundance of caution with Zosyn for 6 days. Especially since he had an elevated white cell count was encephalopathic. After stopping Zosyn, there is been no recurrence of fever, chills, WBC is at normal arrange. 8 problem related to social environment, unspecified Per hospice social worker's note, pt's daughter, Heide stated that the patient cannot return to the hotel cabins he was staying in previously. The hotel was planning to evict him by March 17 due to housekeeping being responsible for cleaning up patient's incontinence in the room. pt is pending for nurse facility for his replacement. - Current Meds Current Meds: Current Medications Generic Name Dose Route Start Last Admin Trade Name Freq PRN Reason Stop Dose Admin Diltiazem HCl 120 mg 03/07/21 11:00 03/31/21 07:49 Diltiazem Cd 120 Mg Capsule PO 120 mg DAILY [facility] Administration Ferrous Gluconate 324 mg 03/09/21 09:00 03/31/21 07:48 Ferrous Gluconate 324 Mg Tablet PO 324 mg DAILYWM [facility] Administration Furosemide 20 mg 03/14/21 09:00 03/31/21 07:49 Furosemide 20 Mg Tablet PO 20 mg DAILY [facility] Administration Ibuprofen 400 mg 03/30/21 08:46 03/30/21 09:04 Ibuprofen 400 Mg Tablet PO 400 mg Q6HR PRN Administration PAIN Lactulose 10 gm 03/06/21 09:00 03/31/21 07:49 Lactulose 10 Gm /15 Ml Udc PO 10 gm DAILY [facility] Administration Morphine Sulfate 2 mg 03/03/21 00:20 03/05/21 03:27 Morphine 2 Mg/Ml Carpuject IVP 2 mg Q2HR PRN Administration PAIN Multi-Ingredient Ointment 1 applic 03/02/21 03:51 03/22/21 11:40 Zinc Oxide 20% Oint 30 Gm Tube TOP 1 applic PRN PRN Administration Skin Care Pantoprazole Sodium 40 mg 03/07/21 07:00 03/31/21 06:43 Pantoprazole 40 Mg Tablet PO 40 mg QDAC [facility] Administration Multivit/Folic Acid/Iron 1 tab 03/05/21 12:00 03/31/21 07:48 Vitamin Tablet PO 1 tab DAILYWM [facility] Administration Propranolol HCl 10 mg 03/14/21 09:08 03/31/21 07:49 Propranolol 10 Mg Tablet PO 10 mg BID [facility] Administration Saccharomyces Boulardii 250 mg 03/11/21 09:00 03/31/21 07:49 Saccharomyces Boulardii 250 Mg Capsule PO 250 mg DAILY [facility] Administration Sodium Chloride 10 ml 03/01/21 21:15 03/05/21 06:07 Sodium Chloride Flush 0.9% 10 Ml Syringe IVP 10 ml PRN PRN Administration NEEDED PER PROVIDER ORDERS Sodium Chloride 10 ml 03/02/21 01:00 03/31/21 07:50 Sodium Chloride Flush 0.9% 10 Ml Syringe IVP 10 ml 0100,0900,1700 [facility] Administration Spironolactone 25 mg 03/14/21 09:00 03/31/21 07:49 Spironolactone 25 Mg Tablet PO 25 mg DAILY [facility] Administration Tamsulosin HCl 0.4 mg 03/09/21 09:00 03/31/21 07:48 Tamsulosin 0.4 Mg Capsule PO 0.4 mg DAILY [facility] Administration Thiamine HCl 100 mg 03/05/21 12:00 03/31/21 07:48 Thiamine 100 Mg Tablet PO 100 mg DAILY [facility] Administration Zinc Oxide 113 gm 03/01/21 22:30 03/08/21 14:54 Cod Liver Oil/Zinc Oxide 113 Gm Tube TOP 1 applic PRN PRN Administration Skin Care - Lab Result Fish Bone Diagrams: 03/30/21 05:31 03/30/21 05:31 Subjective - Subjective Patient Reports: Feeling Better, Resting Comfortably Objective Vital Signs: Vital Signs - 24 hr 03/30/21 03/30/21 03/31/21 16:00 23:54 07:55 Temperature 36.4 C L 36.6 C 37.1 C Heart Rate [ 82 75 Brachial] Heart Rate [ 72 Radial] Respiratory 16 18 20 Rate Blood Pressure 103/51 L 111/53 L 115/58 L [Right Brachial artery] O2 Saturation 98 95 97 Oxygen O2 Source [With Activity] Room air O2 Source Room air I&O (Last 24 Hrs): Intake and Output Totals x24h 03/29/21 03/30/21 03/31/21 23:59 23:59 23:59 Intake Total 2780 1626 680 Output Total 2250 2100 1950 Balance 530 -630 -1270 General: Alert, Oriented x3, Cooperative, No acute distress HEENT: Atraumatic Neck: Supple Neuro: Alert, Non Focal, Oriented Times 3 Cardiovascular: Regular rate, Normal S1, Normal S2 Respiratory: Chest non-tender, No respiratory distress Abdomen: Normal bowel sounds, No tenderness Extremities: Normal pulses - Results Results: Laboratory Results WBC 6.4 x10^3/uL (4.8-10.8) 03/30/21 05:31 RBC 3.18 10^6/uL (4.70-6.10) L 03/30/21 05:31 Hgb 8.0 g/dL (14.0-18.0) L 03/30/21 05:31 Hct 25.9 % (42.0-52.0) L 03/30/21 05:31 MCV 81.4 fL (80.0-94.0) 03/30/21 05:31 MCH 25.2 pg (27.0-31.0) L 03/30/21 05:31 MCHC 30.9 g/dL (32.0-36.0) L 03/30/21 05:31 RDW 21.6 % (12.0-15.0) H 03/30/21 05:31 Plt Count 172 10^3/uL (130-450) 03/30/21 05:31 MPV 11.1 fL (7.4-11.4) 03/30/21 05:31 Reticulocyte % (Auto) 2.31 % (0.5-2.3) H 03/09/21 05:41 Neut # (Auto) 4.5 10^3/uL (1.5-6.6) 03/30/21 05:31 Lymph # (Auto) 0.7 10^3/uL (1.5-3.5) L 03/30/21 05:31 Bullitt # (Auto) 0.9 10^3/uL (0.0-1.0) 03/30/21 05:31 Eos # (Auto) 0.2 10^3/uL (0.0-0.7) 03/30/21 05:31 Baso # (Auto) 0.0 10^3/uL (0.0-0.1) 03/30/21 05:31 Absolute Nucleated RBC 0.00 x10^3/uL 03/30/21 05:31 Total Counted 100 03/08/21 04:09 Band Neuts % (Manual) Not Reportable 03/09/21 05:41 Abnorm Lymph % (Manual) Not Reportable 03/09/21 05:41 Nucleated RBC % 0.0 /100WBC 03/30/21 05:31 Neutrophils # (Manual) Not Reportable 03/09/21 05:41 Lymphocytes # (Manual) Not Reportable 03/09/21 05:41 Monocytes # (Manual) Not Reportable 03/09/21 05:41 Eosinophils # (Manual) Not Reportable 03/09/21 05:41 Basophils # (Manual) Not Reportable 03/09/21 05:41 Differential Comment MANUAL=AUTO DIFF 03/09/21 05:41 Manual Slide Review Indicated 03/30/21 05:31 WBC Morphology NORMAL APPEARANCE (NORMAL) 03/21/21 05:34 Platelet Estimate NORMAL (130-450,000) (NORMAL) 03/30/21 05:31 Platelet Morphology NORMAL APPEARANCE (NORMAL) 03/30/21 05:31 RBC Morph Micro Appear 2+ HYPOCHROMASIA (NORMAL) 1+ ANISOCYTOSIS (NORMAL) 03/30/21 05:31 RBC Morph Micro Appear 2+ HYPOCHROMASIA (NORMAL) 1+ ANISOCYTOSIS (NORMAL) 03/30/21 05:31 Absolute Retic 0.073 10^6/uL (0.020-0.110) 03/09/21 05:41 PT 16.3 secs (9.9-12.6) H 02/28/21 12:34 INR 1.5 (0.8-1.2) H 02/28/21 12:34 APTT 30.2 secs (24.9-33.3) 02/28/21 12:34 Bld Gas Analysis Time 2320 02/28/21 23:15 Sample Site RIGHT RADIAL 02/28/21 23:15 ABG pH 7.41 (7.35-7.45) 02/28/21 23:15 ABG pCO2 20 mmHg (34-45) L* 02/28/21 23:15 ABG pO2 89 mmHg (80-100) 02/28/21 23:15 ABG HCO3 12.5 mmol/L (22.0-26.0) L 02/28/21 23:15 ABG Total CO2 13.1 MMOL/L (21.0-29.0) L 02/28/21 23:15 ABG O2 Saturation 96 % (94-98) 02/28/21 23:15 ABG Base Excess -10.5 mmol/L (-2.0-3.0) L 02/28/21 23:15 Thanh Test POSITIVE 02/28/21 23:15 VBG pH 7.396 (7.31-7.41) 03/02/21 16:45 VBG pCO2 19.0 mmHg (41-51) L 02/28/21 22:02 VBG pO2 75.4 mmHg (25-47) H 02/28/21 22:02 VBG HCO3 11.7 mmol/L (23-28) L 02/28/21 22:02 VBG Total CO2 12.3 mmol/L (24-29) L 02/28/21 22:02 VBG O2 Saturation 93.4 % (60-80) H 02/28/21 22:02 VBG Base Excess -11.0 mmol/L (-2 - +2) L 02/28/21 22:02 Ionized Calcium 1.05 mmol/L (1.15-1.33) L 03/02/21 16:45 O2 Delivery Device NON REBREATHER MASK 02/28/21 23:15 FiO2 21.00 02/28/21 23:15 Sodium 135 mmol/L (135-145) 03/30/21 05:31 Potassium 3.8 mmol/L (3.5-5.0) 03/30/21 05:31 Chloride 102 mmol/L (101-111) 03/30/21 05:31 Carbon Dioxide 25 mmol/L (21-32) 03/30/21 05:31 Anion Gap 8.0 (6-13) 03/30/21 05:31 BUN 17 mg/dL (6-20) 03/30/21 05:31 Creatinine 0.9 mg/dL (0.6-1.2) 03/30/21 05:31 Estimated GFR (MDRD) 83 (>89) L 03/30/21 05:31 Glucose 106 mg/dL (70-100) H 03/30/21 05:31 POC Whole Bld Glucose 134 mg/dL (70 - 100) H 02/28/21 12:27 Lactic Acid 2.5 mmol/L (0.5-2.2) H 02/28/21 21:44 Calcium 8.8 mg/dL (8.5-10.3) 03/30/21 05:31 Phosphorus 3.4 mg/dL (2.5-4.6) 03/09/21 05:41 Magnesium 1.9 mg/dL (1.7-2.8) 03/08/21 04:09 Iron 18 ug/dL (45-182) L 03/09/21 05:41 TIBC 193 ug/dL (250-450) L 03/09/21 05:41 % Saturation 9 % (20-50) L 03/09/21 05:41 Transferrin 138 mg/dL (180-329) L 03/09/21 05:41 Ferritin 110.3 ng/mL (23.9-336.2) 03/09/21 05:41 Total Bilirubin 2.7 mg/dL (0.2-1.0) H 03/05/21 04:48 AST 19 IU/L (10-42) 03/05/21 04:48 ALT 15 IU/L (10-60) 03/05/21 04:48 Alkaline Phosphatase 100 IU/L (42-121) 03/05/21 04:48 Ammonia 22.0 umol/L (7-35) 03/07/21 11:55 Lactate Dehydrogenase 135 IU/L (91-225) 03/09/21 05:41 Total Creatine Kinase 36 IU/L (22-269) 02/28/21 12:34 Troponin I High Sens 17.5 ng/L (2.3-19.7) 03/03/21 16:42 B-Natriuretic Peptide 313 pg/mL (5-100) H 03/01/21 02:39 Total Protein 6.0 g/dL (6.7-8.2) L 03/05/21 04:48 Albumin 2.1 g/dL (3.2-5.5) L 03/05/21 04:48 Globulin 3.9 g/dL (2.1-4.2) 03/05/21 04:48 Albumin/Globulin Ratio 0.5 (1.0-2.2) L 03/05/21 04:48 Lipase 251 U/L (22-51) H 02/28/21 21:44 Vitamin B12 1216 pg/mL (180-914) H 03/09/21 05:41 Folate 32.00 ng/mL (5.90 - >24.8) 03/09/21 05:41 TSH 2.35 uIU/mL (0.34-5.60) 02/28/21 12:34 Free T4 0.69 ng/dL (0.58-1.64) 02/28/21 12:34 Urine Color DARK YELLOW 02/28/21 13:03 Urine Clarity CLOUDY (CLEAR) 02/28/21 13:03 Urine pH 6.0 PH (5.0-7.5) 02/28/21 13:03 Ur Specific Pierce 1.015 (1.002-1.030) 02/28/21 13:03 Urine Protein NEGATIVE mg/dL (NEGATIVE) 02/28/21 13:03 Urine Glucose (UA) NEGATIVE mg/dL (NEGATIVE) 02/28/21 13:03 Urine Ketones NEGATIVE mg/dL (NEGATIVE) 02/28/21 13:03 Urine Occult Blood LARGE (NEGATIVE) H 02/28/21 13:03 Urine Nitrite NEGATIVE (NEGATIVE) 02/28/21 13:03 Urine Bilirubin NEGATIVE (NEGATIVE) 02/28/21 13:03 Urine Urobilinogen 1 (NORMAL) E.U./dL (NORMAL) 02/28/21 13:03 Ur Leukocyte Esterase MODERATE (NEGATIVE) H 02/28/21 13:03 Urine RBC 6-10 /HPF (0-5) H 02/28/21 13:03 Urine WBC >25 /HPF (0-3) H 02/28/21 13:03 Ur Squamous Epith Cells NONE SEEN (<= Few) 02/28/21 13:03 Urine Bacteria Few /HPF (None Seen) 02/28/21 13:03 Ur Microscopic Review INDICATED 02/28/21 13:03 Urine Culture Comments INDICATED 02/28/21 13:03 Nasal Adenovirus (PCR) NOT DETECTED 02/28/21 14:05 Nasal B. parapertussis DNA (PCR) NOT DETECTED 02/28/21 14:05 Nasal Coronavir 229E PCR NOT DETECTED 02/28/21 14:05 Nasal Coronavir HKU1 PCR NOT DETECTED 02/28/21 14:05 Nasal Coronavir NL63 PCR NOT DETECTED 02/28/21 14:05 Nasal Coronavir OC43 PCR NOT DETECTED 02/28/21 14:05 Nasal Enterovir/Rhinovir PCR NOT DETECTED 02/28/21 14:05 Nasal Influenza B PCR NOT DETECTED 02/28/21 14:05 Nasal Influenza A PCR NOT DETECTED 02/28/21 14:05 Nasal Parainfluen 1 PCR NOT DETECTED 02/28/21 14:05 Nasal Parainfluen 2 PCR NOT DETECTED 02/28/21 14:05 Nasal Parainfluen 3 PCR NOT DETECTED 02/28/21 14:05 Nasal Parainfluen 4 PCR NOT DETECTED 02/28/21 14:05 Nasal RSV (PCR) NOT DETECTED 02/28/21 14:05 Nasal Screen MRSA (PCR) NEGATIVE (NEGATIVE) 03/01/21 22:00 Nasal B.pertussis DNA PCR NOT DETECTED 02/28/21 14:05 Nasal C.pneumoniae (PCR) NOT DETECTED 02/28/21 14:05 Gregory Human Metapneumo PCR NOT DETECTED 02/28/21 14:05 Nasal M.pneumoniae (PCR) NOT DETECTED 02/28/21 14:05 Nasal SARS-CoV-2 (PCR) NOT DETECTED 02/28/21 14:05 Stl C. diff Tox B Gene NEGATIVE (NEGATIVE) 03/03/21 00:30 Salicylates < 6.0 mg/dL 02/28/21 12:34 Urine Opiates Screen NEGATIVE (NEGATIVE) 02/28/21 13:03 Ur Oxycodone Screen NEGATIVE (NEGATIVE) 02/28/21 13:03 Urine Methadone Screen NEGATIVE (NEGATIVE) 02/28/21 13:03 Ur Propoxyphene Screen NEGATIVE (NEGATIVE) 02/28/21 13:03 Acetaminophen < 10 ug/mL (10-30) L 02/28/21 12:34 Ur Barbiturates Screen NEGATIVE (NEGATIVE) 02/28/21 13:03 Ur Tricyclics Screen NEGATIVE (NEGATIVE) 02/28/21 13:03 Ur Phencyclidine Scrn NEGATIVE (NEGATIVE) 02/28/21 13:03 Ur Amphetamine Screen NEGATIVE (NEGATIVE) 02/28/21 13:03 U Methamphetamines Scrn NEGATIVE (NEGATIVE) 02/28/21 13:03 U Benzodiazepines Scrn NEGATIVE (NEGATIVE) 02/28/21 13:03 Urine Cocaine Screen NEGATIVE (NEGATIVE) 02/28/21 13:03 U Cannabinoids Screen NEGATIVE (NEGATIVE) 02/28/21 13:03 Ethyl Alcohol < 5.0 mg/dL 02/28/21 12:34 Blood Type A POSITIVE 03/19/21 08:10 Antibody Screen NEGATIVE 03/19/21 08:10 Crossmatch IS Only See Detail 03/19/21 08:10 - Procedures Procedures: Procedures DRAINAGE OF PERITONEAL CAVITY, PERCUTANEOUS APPROACH, DIAGN (12/19/15) TRANSFUSE NONAUT RED BLOOD CELLS IN PERIPH VEIN, PERC (12/19/15) Sepsis Event Note (H) - Evaluation Possible source of Sepsis: positive: Genitourinary, Skin/soft tissue ABX Reporting Has patient been on IV antibiotics over the past 48 hours?: No Current Medications - Current Medications Current Medications: Active Medications Diltiazem HCl (Diltiazem Cd 120 Mg Capsule) 120 mg PO DAILY [facility] Last Admin: 03/31/21 07:49 Dose: 120 mg Documented by: Ferrous Gluconate (Ferrous Gluconate 324 Mg Tablet) 324 mg PO DAILYWM [facility] Last Admin: 03/31/21 07:48 Dose: 324 mg Documented by: Furosemide (Furosemide 20 Mg Tablet) 20 mg PO DAILY [facility] Last Admin: 03/31/21 07:49 Dose: 20 mg Documented by: Ibuprofen (Ibuprofen 400 Mg Tablet) 400 mg PO Q6HR PRN PRN Reason: PAIN Last Admin: 03/30/21 09:04 Dose: 400 mg Documented by: Lactulose (Lactulose 10 Gm /15 Ml Udc) 10 gm PO DAILY [facility] Last Admin: 03/31/21 07:49 Dose: 10 gm Documented by: Morphine Sulfate (Morphine 2 Mg/Ml Carpuject) 2 mg IVP Q2HR PRN PRN Reason: PAIN Last Admin: 03/05/21 03:27 Dose: 2 mg Documented by: Multi-Ingredient Ointment (Zinc Oxide 20% Oint 30 Gm Tube) 1 applic TOP PRN PRN PRN Reason: Skin Care Last Admin: 03/22/21 11:40 Dose: 1 applic Documented by: Ondansetron HCl (Ondansetron 4 Mg/2 Ml Vial) 4 mg IVP Q6HR PRN PRN Reason: Nausea / Vomiting Pantoprazole Sodium (Pantoprazole 40 Mg Tablet) 40 mg PO QDAC [facility] Last Admin: 03/31/21 06:43 Dose: 40 mg Documented by: Multivit/Folic Acid/Iron ( Vitamin Tablet) 1 tab PO DAILYWM [facility] Last Admin: 03/31/21 07:48 Dose: 1 tab Documented by: Propranolol HCl (Propranolol 10 Mg Tablet) 10 mg PO BID [facility] Last Admin: 03/31/21 07:49 Dose: 10 mg Documented by: Saccharomyces Boulardii (Saccharomyces Boulardii 250 Mg Capsule) 250 mg PO DAILY [facility] Last Admin: 03/31/21 07:49 Dose: 250 mg Documented by: Sodium Chloride (Sodium Chloride Flush 0.9% 10 Ml Syringe) 10 ml IVP PRN PRN PRN Reason: NEEDED PER PROVIDER ORDERS Last Admin: 03/05/21 06:07 Dose: 10 ml Documented by: Sodium Chloride (Sodium Chloride Flush 0.9% 10 Ml Syringe) 10 ml IVP 0100,0900,1700 [facility] Last Admin: 03/31/21 07:50 Dose: 10 ml Documented by: Spironolactone (Spironolactone 25 Mg Tablet) 25 mg PO DAILY [facility] Last Admin: 03/31/21 07:49 Dose: 25 mg Documented by: Tamsulosin HCl (Tamsulosin 0.4 Mg Capsule) 0.4 mg PO DAILY [facility] Last Admin: 03/31/21 07:48 Dose: 0.4 mg Documented by: Thiamine HCl (Thiamine 100 Mg Tablet) 100 mg PO DAILY [facility] Last Admin: 03/31/21 07:48 Dose: 100 mg Documented by: Zinc Oxide (Cod Liver Oil/Zinc Oxide 113 Gm Tube) 113 gm TOP PRN PRN PRN Reason: Skin Care Last Admin: 03/08/21 14:54 Dose: 1 applic Documented by: Furosemide [Lasix] 20 mg PO DAILY 07/31/20 Propranolol [Inderal] 10 mg PO BID 07/31/20 Spironolactone [Aldactone] 25 mg PO DAILY 07/31/20
[2021-04-01] MEDS: PANTOPRAZOLE 40 MG TABLET PO SCH (05:51)
[2021-04-01] MEDS: PRENATAL VITAMIN TABLET PO SCH (12:09)
[2021-04-01] MEDS: diltiaZEM CD 120 MG CAPSULE PO SCH (12:09)
[2021-04-01] MEDS: FERROUS GLUCONATE 324 MG TABLET PO SCH (12:09)
[2021-04-01] MEDS: THIAMINE 100 MG TABLET PO SCH (12:10)
[2021-04-01] MEDS: TAMSULOSIN 0.4 MG CAPSULE PO SCH (12:10)
[2021-04-01] MEDS: SPIRONOLACTONE 25 MG TABLET PO SCH (12:10)
[2021-04-01] MEDS: SODIUM CHLORIDE FLUSH 0.9% 10 ML SYRINGE IVP SCH ×3 (12:10→23:16)
[2021-04-01] MEDS: FUROSEMIDE 20 MG TABLET PO SCH (12:10)
[2021-04-01] MEDS: PROPRANOLOL 10 MG TABLET PO SCH ×2 (12:10→20:46)
[2021-04-01] MEDS: SACCHAROMYCES BOULARDII 250 MG CAPSULE PO SCH (12:10)
[2021-04-01] MEDS: LACTULOSE 10 GM /15 ML UDC PO SCH (12:10)
--- NOTE | 2021-04-01 19:21 | PROVIDER PROGRESS NOTE ---
Subjective - Prog Note Date Prog Note Date: 04/01/21 - Subjective Subjective: Reports doing well. He is eager to leave the hospital. He states he was able to urinate a little bit today but feels like he may not be emptying his bladder completely. Current Medications - Current Medications Current Medications: Active Medications Diltiazem HCl (Diltiazem Cd 120 Mg Capsule) 120 mg PO DAILY [facility] Last Admin: 04/01/21 12:09 Dose: Not Given Documented by: Ferrous Gluconate (Ferrous Gluconate 324 Mg Tablet) 324 mg PO DAILYWM [facility] Last Admin: 04/01/21 12:09 Dose: Not Given Documented by: Furosemide (Furosemide 20 Mg Tablet) 20 mg PO DAILY [facility] Last Admin: 04/01/21 12:10 Dose: Not Given Documented by: Ibuprofen (Ibuprofen 400 Mg Tablet) 400 mg PO Q6HR PRN PRN Reason: PAIN Last Admin: 03/30/21 09:04 Dose: 400 mg Documented by: Lactulose (Lactulose 10 Gm /15 Ml Udc) 10 gm PO DAILY [facility] Last Admin: 04/01/21 12:10 Dose: Not Given Documented by: Morphine Sulfate (Morphine 2 Mg/Ml Carpuject) 2 mg IVP Q2HR PRN PRN Reason: PAIN Last Admin: 03/05/21 03:27 Dose: 2 mg Documented by: Multi-Ingredient Ointment (Zinc Oxide 20% Oint 30 Gm Tube) 1 applic TOP PRN PRN PRN Reason: Skin Care Last Admin: 03/22/21 11:40 Dose: 1 applic Documented by: Ondansetron HCl (Ondansetron 4 Mg/2 Ml Vial) 4 mg IVP Q6HR PRN PRN Reason: Nausea / Vomiting Pantoprazole Sodium (Pantoprazole 40 Mg Tablet) 40 mg PO QDAC [facility] Last Admin: 04/01/21 05:51 Dose: 40 mg Documented by: Multivit/Folic Acid/Iron ( Vitamin Tablet) 1 tab PO DAILYWM [facility] Last Admin: 04/01/21 12:09 Dose: Not Given Documented by: Propranolol HCl (Propranolol 10 Mg Tablet) 10 mg PO BID [facility] Last Admin: 04/01/21 12:10 Dose: Not Given Documented by: Saccharomyces Boulardii (Saccharomyces Boulardii 250 Mg Capsule) 250 mg PO DAILY [facility] Last Admin: 04/01/21 12:10 Dose: Not Given Documented by: Sodium Chloride (Sodium Chloride Flush 0.9% 10 Ml Syringe) 10 ml IVP PRN PRN PRN Reason: NEEDED PER PROVIDER ORDERS Last Admin: 03/05/21 06:07 Dose: 10 ml Documented by: Sodium Chloride (Sodium Chloride Flush 0.9% 10 Ml Syringe) 10 ml IVP 0100,0900,1700 [facility] Last Admin: 04/01/21 12:10 Dose: Not Given Documented by: Spironolactone (Spironolactone 25 Mg Tablet) 25 mg PO DAILY [facility] Last Admin: 04/01/21 12:10 Dose: Not Given Documented by: Tamsulosin HCl (Tamsulosin 0.4 Mg Capsule) 0.4 mg PO DAILY [facility] Last Admin: 04/01/21 12:10 Dose: Not Given Documented by: Thiamine HCl (Thiamine 100 Mg Tablet) 100 mg PO DAILY [facility] Last Admin: 04/01/21 12:10 Dose: Not Given Documented by: Zinc Oxide (Cod Liver Oil/Zinc Oxide 113 Gm Tube) 113 gm TOP PRN PRN PRN Reason: Skin Care Last Admin: 03/08/21 14:54 Dose: 1 applic Documented by: Furosemide [Lasix] 20 mg PO DAILY 07/31/20 Propranolol [Inderal] 10 mg PO BID 07/31/20 Spironolactone [Aldactone] 25 mg PO DAILY 07/31/20 Objective - Vital Signs/Intake & Output Reviewed Vital Signs: Yes Vital Signs: Vital Signs x48h Temp Pulse Resp BP Pulse Ox 04/01/21 15:58 36.7 C 103 H 18 134/77 H 96 Intake & Output: Intake & Output 03/29/21 03/30/21 03/31/21 04/01/21 23:59 23:59 23:59 23:59 Intake Total 2780 6057 226 5398 Output Total 2250 2100 2850 1550 Balance 729 -450 -5485 -586 - Objective General Appearance: positive: No acute distress, Alert Eyes Bilateral: positive: Normal inspection ENT: positive: ENT inspection nml Neck: positive: Nml inspection Respiratory: positive: No respiratory distress Abdomen: positive: Non-tender. negative: No distention, Tenderness, Guarding, Rebound Skin: positive: Warm, Dry Extremities: positive: No pedal edema Neurologic/Psychiatric: negative: Disoriented to person, Disoriented to place - Lab Results Fish Bones: 03/30/21 05:31 03/30/21 05:31 ABX Reporting Has patient been on IV antibiotics over the past 48 hours?: No Sepsis Event Note (H) - Evaluation Possible source of Sepsis: positive: Genitourinary, Skin/soft tissue Assessment/Plan - Problem List (1) Acute renal failure Impression: This is now resolved. Renal function is back to baseline. Patient is pending placement at this point. Qualifiers: Qualified Code(s): N17.9 - Acute kidney failure, unspecified (2) Encephalopathy Impression: This is resolved. This was secondary to hyperammonemia. He appears back to his baseline although he does have cognitive deficits at baseline. Continue lactulose. (3) End stage liver disease Impression: This is secondary to alcoholic cirrhosis. We have resumed his home diuretics including Lasix and spironolactone. He is also on propanolol. (4) SVT (supraventricular tachycardia) Impression: This is resolved. Continue Cardizem. (5) Urinary incontinence with continuous leakage Impression: Stable. He had an indwelling Calix catheter which was removed. He was also started on Flomax. We will check a postvoid residual today. If there is concern for significant retention then he may need a catheter once again. (6) Iron deficiency anemia due to dietary causes Impression: He is on iron supplementation for iron deficiency anemia. He was transfused 1 unit of packed red blood cells during his hospitalization. There has been no evidence of bleeding.. (7) Staphylococcus aureus bacteremia Impression: Initial blood cultures grew Staph aureus in just the anaerobic bottle. The other cultures were negative. Repeat blood cultures have been negative to date. He was treated with Zosyn IV for 6 days given elevated white count but antibiotics have since been discontinued.
[2021-04-02] MEDS: PANTOPRAZOLE 40 MG TABLET PO SCH (05:30)
[2021-04-02] MEDS: FERROUS GLUCONATE 324 MG TABLET PO SCH (10:02)
[2021-04-02] MEDS: PRENATAL VITAMIN TABLET PO SCH (10:02)
[2021-04-02] MEDS: THIAMINE 100 MG TABLET PO SCH (10:02)
[2021-04-02] MEDS: SACCHAROMYCES BOULARDII 250 MG CAPSULE PO SCH (10:02)
[2021-04-02] MEDS: FUROSEMIDE 20 MG TABLET PO SCH (10:03)
[2021-04-02] MEDS: PROPRANOLOL 10 MG TABLET PO SCH ×2 (10:03→20:32)
[2021-04-02] MEDS: diltiaZEM CD 120 MG CAPSULE PO SCH (10:03)
[2021-04-02] MEDS: TAMSULOSIN 0.4 MG CAPSULE PO SCH (10:03)
[2021-04-02] MEDS: SPIRONOLACTONE 25 MG TABLET PO SCH (10:03)
[2021-04-02] MEDS: LACTULOSE 10 GM /15 ML UDC PO SCH (10:04)
[2021-04-02] MEDS: SODIUM CHLORIDE FLUSH 0.9% 10 ML SYRINGE IVP SCH ×2 (10:04→20:31)
--- NOTE | 2021-04-02 20:41 | PROVIDER PROGRESS NOTE ---
<Garret Hdz - Last Filed: 04/02/21 21:12> Subjective - Prog Note Date Prog Note Date: 04/02/21 - Subjective Subjective: He was able to urinate some more today. He does not want a Calix catheter back in place. Current Medications - Current Medications Current Medications: Active Medications Diltiazem HCl (Diltiazem Cd 120 Mg Capsule) 120 mg PO DAILY [facility] Last Admin: 04/02/21 10:03 Dose: 120 mg Documented by: Ferrous Gluconate (Ferrous Gluconate 324 Mg Tablet) 324 mg PO DAILYWM [facility] Last Admin: 04/02/21 10:02 Dose: 324 mg Documented by: Furosemide (Furosemide 20 Mg Tablet) 20 mg PO DAILY [facility] Last Admin: 04/02/21 10:03 Dose: 20 mg Documented by: Ibuprofen (Ibuprofen 400 Mg Tablet) 400 mg PO Q6HR PRN PRN Reason: PAIN Last Admin: 03/30/21 09:04 Dose: 400 mg Documented by: Lactulose (Lactulose 10 Gm /15 Ml Udc) 10 gm PO DAILY [facility] Last Admin: 04/02/21 10:04 Dose: 10 gm Documented by: Multi-Ingredient Ointment (Zinc Oxide 20% Oint 30 Gm Tube) 1 applic TOP PRN PRN PRN Reason: Skin Care Last Admin: 03/22/21 11:40 Dose: 1 applic Documented by: Ondansetron HCl (Ondansetron 4 Mg/2 Ml Vial) 4 mg IVP Q6HR PRN PRN Reason: Nausea / Vomiting Pantoprazole Sodium (Pantoprazole 40 Mg Tablet) 40 mg PO QDAC [facility] Last Admin: 04/02/21 05:30 Dose: 40 mg Documented by: Multivit/Folic Acid/Iron ( Vitamin Tablet) 1 tab PO DAILYWM [facility] Last Admin: 04/02/21 10:02 Dose: 1 tab Documented by: Propranolol HCl (Propranolol 10 Mg Tablet) 10 mg PO BID [facility] Last Admin: 04/02/21 20:32 Dose: 10 mg Documented by: Saccharomyces Boulardii (Saccharomyces Boulardii 250 Mg Capsule) 250 mg PO DAILY [facility] Last Admin: 04/02/21 10:02 Dose: 250 mg Documented by: Sodium Chloride (Sodium Chloride Flush 0.9% 10 Ml Syringe) 10 ml IVP PRN PRN PRN Reason: NEEDED PER PROVIDER ORDERS Last Admin: 03/05/21 06:07 Dose: 10 ml Documented by: Sodium Chloride (Sodium Chloride Flush 0.9% 10 Ml Syringe) 10 ml IVP 0100,09 00,1700 [facility] Last Admin: 04/02/21 20:31 Dose: Not Given Documented by: Spironolactone (Spironolactone 25 Mg Tablet) 25 mg PO DAILY [facility] Last Admin: 04/02/21 10:03 Dose: 25 mg Documented by: Tamsulosin HCl (Tamsulosin 0.4 Mg Capsule) 0.4 mg PO DAILY [facility] Last Admin: 04/02/21 10:03 Dose: 0.4 mg Documented by: Thiamine HCl (Thiamine 100 Mg Tablet) 100 mg PO DAILY [facility] Last Admin: 04/02/21 10:02 Dose: 100 mg Documented by: Zinc Oxide (Cod Liver Oil/Zinc Oxide 113 Gm Tube) 113 gm TOP PRN PRN PRN Reason: Skin Care Last Admin: 03/08/21 14:54 Dose: 1 applic Documented by: Furosemide [Lasix] 20 mg PO DAILY 07/31/20 Propranolol [Inderal] 10 mg PO BID 07/31/20 Spironolactone [Aldactone] 25 mg PO DAILY 07/31/20 Objective - Vital Signs/Intake & Output Reviewed Vital Signs: Yes Vital Signs: Vital Signs x48h Temp Pulse Pulse Resp BP Pulse Ox 04/02/21 20:32 84 115/50 L 04/02/21 16:00 37.4 C 89 18 101/50 L 96 Intake & Output: Intake & Output 03/30/21 03/31/21 04/01/21 04/02/21 23:59 23:59 23:59 23:59 Intake Total 7921 559 1080 1650 Output Total 2100 2850 1575 1175 Balance -474 -1930 405 475 - Objective General Appearance: positive: No acute distress, Alert Eyes Bilateral: positive: Normal inspection ENT: positive: ENT inspection nml Neck: positive: Nml inspection Respiratory: positive: No respiratory distress Skin: positive: Warm, Dry Neurologic/Psychiatric: negative: Disoriented to person, Disoriented to place - Lab Results Fish Bones: 03/30/21 05:31 03/30/21 05:31 Sepsis Event Note (H) - Evaluation Possible source of Sepsis: positive: Genitourinary, Skin/soft tissue Assessment/Plan - Problem List (1) Acute renal failure Impression: This is now resolved. Renal function is back to baseline. Patient is pending placement at this point. Qualifiers: Qualified Code(s): N17.9 - Acute kidney failure, unspecified (2) Encephalopathy Impression: This is resolved. This was secondary to hyperammonemia. He appears back to his baseline although he does have cognitive deficits at baseline. Continue lactulose. (3) End stage liver disease Impression: This is secondary to alcoholic cirrhosis. We have resumed his home diuretics including Lasix and spironolactone. He is also on propanolol. (4) SVT (supraventricular tachycardia) Impression: This is resolved. Continue Cardizem. (5) Urinary incontinence with continuous leakage Impression: He has been able to urinate since the catheter was removed but his postvoid residual is over 350 mL. He does not want a Calix catheter in place. We will continue medical management with Flomax. We will continue to check postvoid residuals to ensure there is no significant urinary retention that may necessitate a Calix. (6) Iron deficiency anemia due to dietary causes Impression: He is on iron supplementation for iron deficiency anemia. He was transfused 1 unit of packed red blood cells during his hospitalization. There has been no evidence of bleeding. (7) Staphylococcus aureus bacteremia Impression: Initial blood cultures grew Staph aureus in just the anaerobic bottle. The other cultures were negative. Repeat blood cultures have been negative to date. He was treated with Zosyn IV for 6 days given elevated white count but antibiotics have since been discontinued. <Mary Chowdhury L - Last Filed: 04/03/21 16:58> Objective - Vital Signs/Intake & Output Vital Signs: Vital Signs x48h Pulse Resp BP Pulse Ox 04/03/21 16:00 76 16 106/61 100 04/03/21 09:25 78 109/52 L Intake & Output: Intake & Output 03/31/21 04/01/21 04/02/21 04/03/21 23:59 23:59 23:59 23:59 Intake Total 920 1980 2000 1390 Output Total 2850 1575 1475 1200 Balance -1930 405 525 190 - Lab Results Fish Bones: 03/30/21 05:31 03/30/21 05:31 Assessment/Plan - Problem List (2) Acute renal failure Qualifiers: Qualified Code(s): N17.9 - Acute kidney failure, unspecified
[2021-04-03] MEDS: SODIUM CHLORIDE FLUSH 0.9% 10 ML SYRINGE IVP SCH ×2 (01:08→09:28)
[2021-04-03] MEDS: PANTOPRAZOLE 40 MG TABLET PO SCH (07:01)
[2021-04-03] MEDS: LACTULOSE 10 GM /15 ML UDC PO SCH (09:27)
[2021-04-03] MEDS: TAMSULOSIN 0.4 MG CAPSULE PO SCH (09:28)
[2021-04-03] MEDS: PRENATAL VITAMIN TABLET PO SCH (09:28)
[2021-04-03] MEDS: FUROSEMIDE 20 MG TABLET PO SCH (09:28)
[2021-04-03] MEDS: FERROUS GLUCONATE 324 MG TABLET PO SCH (09:28)
[2021-04-03] MEDS: PROPRANOLOL 10 MG TABLET PO SCH ×2 (09:28→20:53)
[2021-04-03] MEDS: SACCHAROMYCES BOULARDII 250 MG CAPSULE PO SCH (09:28)
[2021-04-03] MEDS: diltiaZEM CD 120 MG CAPSULE PO SCH (09:28)
[2021-04-03] MEDS: SPIRONOLACTONE 25 MG TABLET PO SCH (09:28)
[2021-04-03] MEDS: THIAMINE 100 MG TABLET PO SCH (09:28)
--- NOTE | 2021-04-03 17:17 | PROVIDER PROGRESS NOTE ---
Progress Note April 03, 2021 4:52 PM Mr. Mills waxes and wanes with his crankiness. Many days this week he kept on saying he was going to leave AMA. He was bored. He was tired of being here. He would have an emotional outburst where he would yell and throw people out of the room. In the end he decided to stay and is apologized for his behavior. Plan is for him to have a home community services evaluation on April 05. That will then determine what his placement will be. He is compliant with taking his medications. He has been discharged from physical therapy for probably close to 2 weeks now. Active Medications Diltiazem HCl (Diltiazem Cd 120 Mg Capsule) 120 mg PO DAILY [facility] Last Admin: 04/03/21 09:28 Dose: 120 mg Documented by: Ferrous Gluconate (Ferrous Gluconate 324 Mg Tablet) 324 mg PO DAILYWM [facility] Last Admin: 04/03/21 09:28 Dose: 324 mg Documented by: Furosemide (Furosemide 20 Mg Tablet) 20 mg PO DAILY [facility] Last Admin: 04/03/21 09:28 Dose: 20 mg Documented by: Ibuprofen (Ibuprofen 400 Mg Tablet) 400 mg PO Q6HR PRN PRN Reason: PAIN Last Admin: 03/30/21 09:04 Dose: 400 mg Documented by: Lactulose (Lactulose 10 Gm /15 Ml Udc) 10 gm PO DAILY [facility] Last Admin: 04/03/21 09:27 Dose: 10 gm Documented by: Multi-Ingredient Ointment (Zinc Oxide 20% Oint 30 Gm Tube) 1 applic TOP PRN PRN PRN Reason: Skin Care Last Admin: 03/22/21 11:40 Dose: 1 applic Documented by: Ondansetron HCl (Ondansetron 4 Mg/2 Ml Vial) 4 mg IVP Q6HR PRN PRN Reason: Nausea / Vomiting Pantoprazole Sodium (Pantoprazole 40 Mg Tablet) 40 mg PO QDAC [facility] Last Admin: 04/03/21 07:01 Dose: 40 mg Documented by: Multivit/Folic Acid/Iron ( Vitamin Tablet) 1 tab PO DAILYWM [facility] Last Admin: 04/03/21 09:28 Dose: 1 tab Documented by: Propranolol HCl (Propranolol 10 Mg Tablet) 10 mg PO BID [facility] Last Admin: 04/03/21 09:28 Dose: 10 mg Documented by: Saccharomyces Boulardii (Saccharomyces Boulardii 250 Mg Capsule) 250 mg PO DAILY [facility] Last Admin: 04/03/21 09:28 Dose: 250 mg Documented by: Sodium Chloride (Sodium Chloride Flush 0.9% 10 Ml Syringe) 10 ml IVP PRN PRN PRN Reason: NEEDED PER PROVIDER ORDERS Last Admin: 03/05/21 06:07 Dose: 10 ml Documented by: Sodium Chloride (Sodium Chloride Flush 0.9% 10 Ml Syringe) 10 ml IVP 0100,0900,1700 [facility] Last Admin: 04/03/21 09:28 Dose: Not Given Documented by: Spironolactone (Spironolactone 25 Mg Tablet) 25 mg PO DAILY [facility] Last Admin: 04/03/21 09:28 Dose: 25 mg Documented by: Tamsulosin HCl (Tamsulosin 0.4 Mg Capsule) 0.4 mg PO DAILY [facility] Last Admin: 04/03/21 09:28 Dose: 0.4 mg Documented by: Thiamine HCl (Thiamine 100 Mg Tablet) 100 mg PO DAILY [facility] Last Admin: 04/03/21 09:28 Dose: 100 mg Documented by: Zinc Oxide (Cod Liver Oil/Zinc Oxide 113 Gm Tube) 113 gm TOP PRN PRN PRN Reason: Skin Care Last Admin: 03/08/21 14:54 Dose: 1 applic Documented by: Furosemide [Lasix] 20 mg PO DAILY 07/31/20 Propranolol [Inderal] 10 mg PO BID 07/31/20 Spironolactone [Aldactone] 25 mg PO DAILY 07/31/20 Temperature is 36.7. Heart rate is 76. Blood pressure 109/61. Respirations 16. 100% on room air. His blood pressures been running a little low today. He is usually [id number] systolic. Alert, oriented elderly gentleman. Probably slightly deaf with a very loud voic e. He sounds like a private. Neck is supple Lungs are clear to auscultation and percussion. He does not have an increased respiratory effort. Regular rate and rhythm with a soft systolic ejection murmur. Abdomen is soft, nontender. He still has mild distention, probable fluid wave. But it is much, much, much less present than it was when he was first admitted. Extremities have trace ankle edema. While he is oriented to person, place, time he is occasionally forgetful. When he was first admitted he was completely obtunded and comatose. Will have to be reminded of why he has been here so long. Very animated when he discusses his disagreement with his previous landlord. Last labs were March 30. Assessment/plan 1. Admission in the beginning was due to severe renal failure. He was in the ICU. Creatinine was 10.3. This was on February 28. He started normalizing by March 14 with IV fluids and nutrition. He is dropped down to baseline of 0.9. 2. With the acute renal failure came hepatic encephalopathy. Again once he was hydrated, received nutrition, was placed on regular lactulose he has improved and we believe he has been at baseline for 2 weeks now. 3. End-stage liver disease due to alcoholic liver disease. He is on lactulose, propranolol, Lasix. I do not have Xifaxan ordered for now. It was for a while. 4. While he was in ICU he had intermittent episodes of SVT. Those resolved with diltiazem drip. He is on p.o. Cardizem. 5. Urinary incontinence. Indwelling Calix catheter. It was removed. Started on Flomax. Had to have the catheter resumed because of retention. This is now happened twice. 6. Iron deficiency anemia due to dietary causes. On iron supplementation. Hemoglobin has been stabilized. He did receive 1 unit of packed cells while here. He has no evidence of esophageal varices or bleeding. 7. Staph aureus bacteremia. This was on admission. This was in 1 anaerobic bottle. Repeat blood cultures were negative to date. He received empiric antibiotic therapy with Zosyn initially for 6 days given his elevated white cell count. White cell count returned to normal. He has not required any more antibiotics since then. 8. Significant deconditioning, muscle wasting on admission. He has been slowly recovering. While he was initially bedbound I could barely sit up, he is now a ble to ambulate in his room up to 4 feet but easily fatigues. We will continue to work with physical therapy. We are awaiting health and community services evaluation on April 05. That will then determine what placement might be for him.
[2021-04-04] MEDS: PANTOPRAZOLE 40 MG TABLET PO SCH (05:37)
[2021-04-04] MEDS: SPIRONOLACTONE 25 MG TABLET PO SCH (09:42)
[2021-04-04] MEDS: PRENATAL VITAMIN TABLET PO SCH (09:42)
[2021-04-04] MEDS: SACCHAROMYCES BOULARDII 250 MG CAPSULE PO SCH (09:42)
[2021-04-04] MEDS: diltiaZEM CD 120 MG CAPSULE PO SCH (09:42)
[2021-04-04] MEDS: TAMSULOSIN 0.4 MG CAPSULE PO SCH (09:42)
[2021-04-04] MEDS: FUROSEMIDE 20 MG TABLET PO SCH (09:42)
[2021-04-04] MEDS: THIAMINE 100 MG TABLET PO SCH (09:42)
[2021-04-04] MEDS: LACTULOSE 10 GM /15 ML UDC PO SCH (09:43)
[2021-04-04] MEDS: FERROUS GLUCONATE 324 MG TABLET PO SCH (09:43)
[2021-04-04] MEDS: PROPRANOLOL 10 MG TABLET PO SCH ×2 (09:43→20:20)
--- NOTE | 2021-04-04 15:33 | PROVIDER PROGRESS NOTE ---
Assessment/Plan - Problem List (1) End stage liver disease Assessment/Plan: 04-04 pt has no complaints, he is hemodynamic stable, we consult with social media coordinator for Disposition planning. 03-31 Patient is hemodynamic stable, consult with social media coordinator for Disposition planning. 03-30, pt continue doing well, consult with social media coordinator for Disposition planning. He is doing very well, and clinically stable. pt ate 100% his diet and walk on the hallway. 2. Acute renal failure 03-30, repeated lab test show resolved. pt had a creatinine that was 10.3 on admission. That was February 28. With hydration, antibiotics, and nutrition his creatinine has been 0.9 to 1.0 starting March 15. we will check on tomorrow. 3. Metabolic encephalopathy 03-30 resolved as his baseline. his acute metabolic encephalopathy from the liver failure has resolved. We will continue lactulose. He likely has baseline of cognitive deficits and he is stable 4. SVT. controlled and resolved. Controlled rate with Cardizem. 5. Urinary incontinence. Has Calix catheter, on Flomax. 6. Iron deficiency anemia. 03-30 stable, HGB is 8.0 pt's anemia likely combination of his chronic disease and liver failure. pt was found to have iron deficiency as well. pt is on iron replacement. Last CBC March 24. We will recheck tomorrow. 7. Staph aureus bacteremia. resolved. repeat blood culture is negative for bacteremia. it is likely from contamination. He was treated with an abundance of caution with Zosyn for 6 days. Especially since he had an elevated white cell count was encephalopathic. After stopping Zosyn, there is been no recurrence of fever, chills, WBC is at normal arrange. 8 problem related to social environment, unspecified Per social media coordinator's note, pt's daughter, Heide stated that the patient cannot return to the hotel cabins he was staying in previously. The hotel was planning to evict him by March 17 due to housekeeping being responsible for cleaning up patient's incontinence in the room. pt is pending for nurse facility for his replacement. - Current Meds Current Meds: Current Medications Generic Name Dose Route Start Last Admin Trade Name Freq PRN Reason Stop Dose Admin Diltiazem HCl 120 mg 03/07/21 11:00 04/04/21 09:42 Diltiazem Cd 120 Mg Capsule PO 120 mg DAILY TRACI Administration Ferrous Gluconate 324 mg 03/09/21 09:00 04/04/21 09:43 Ferrous Gluconate 324 Mg Tablet PO 324 mg DAILYWM TRACI Administration Furosemide 20 mg 03/14/21 09:00 04/04/21 09:42 Furosemide 20 Mg Tablet PO 20 mg DAILY TRACI Administration Ibuprofen 400 mg 03/30/21 08:46 03/30/21 09:04 Ibuprofen 400 Mg Tablet PO 400 mg Q6HR PRN Administration PAIN Lactulose 10 gm 03/06/21 09:00 04/04/21 09:43 Lactulose 10 Gm /15 Ml Udc PO 10 gm DAILY TRACI Administration Multi-Ingredient Ointment 1 applic 03/02/21 03:51 03/22/21 11:40 Zinc Oxide 20% Oint 30 Gm Tube TOP 1 applic PRN PRN Administration Skin Care Pantoprazole Sodium 40 mg 03/07/21 07:00 04/04/21 05:37 Pantoprazole 40 Mg Tablet PO 40 mg QDAC TRACI Administration Multivit/Folic Acid/Iron 1 tab 03/05/21 12:00 04/04/21 09:42 Vitamin Tablet PO 1 tab DAILYWM TRACI Administration Propranolol HCl 10 mg 03/14/21 09:08 04/04/21 09:43 Propranolol 10 Mg Tablet PO 10 mg BID TRACI Administration Saccharomyces Boulardii 250 mg 03/11/21 09:00 04/04/21 09:42 Saccharomyces Boulardii 250 Mg Capsule PO 250 mg DAILY TRACI Administration Spironolactone 25 mg 03/14/21 09:00 04/04/21 09:42 Spironolactone 25 Mg Tablet PO 25 mg DAILY TRACI Administration Tamsulosin HCl 0.4 mg 03/09/21 09:00 04/04/21 09:42 Tamsulosin 0.4 Mg Capsule PO 0.4 mg DAILY TRACI Administration Thiamine HCl 100 mg 03/05/21 12:00 04/04/21 09:42 Thiamine 100 Mg Tablet PO 100 mg DAILY TRACI Administration Zinc Oxide 113 gm 03/01/21 22:30 03/08/21 14:54 Cod Liver Oil/Zinc Oxide 113 Gm Tube TOP 1 applic PRN PRN Administration Skin Care - Lab Result Fish Bone Diagrams: 03/30/21 05:31 03/30/21 05:31 Subjective - Subjective Patient Reports: Feeling Better Objective Vital Signs: Vital Signs - 24 hr 10/18/21 10/18/21 10/19/21 16:00 20:54 00:12 Temperature 36.6 C Heart Rate [ 76 71 Brachial] Heart Rate [ 76 Radial] Respiratory 16 20 Rate Blood Pressure 106/61 113/57 L 117/61 [Right Brachial artery] O2 Saturation 100 97 04/04/21 04/04/21 07:39 09:40 Temperature 36.6 C Heart Rate [ 79 Brachial] Heart Rate [ 74 Radial] Respiratory 20 Rate Blood Pressure 105/57 L 114/60 [Right Brachial artery] O2 Saturation 97 Oxygen O2 Source [With Activity] Room air O2 Source Room air I&O (Last 24 Hrs): Intake and Output Totals x24h 04/02/21 04/03/21 04/04/21 23:59 23:59 23:59 Intake Total 1999 1840 620 Output Total 1475 1500 1500 Balance 525 340 -880 General: Alert, Oriented x3, Cooperative, No acute distress HEENT: Atraumatic Neck: Supple Lymphatic: no adenopathy Neuro: Alert, Non Focal, Oriented Times 3 Cardiovascular: Regular rate, Normal S1, Normal S2 Respiratory: Chest non-tender, No respiratory distress Abdomen: Normal bowel sounds, Soft Extremities: Normal pulses - Results Results: Laboratory Results WBC 6.4 x10^3/uL (4.8-10.8) 03/30/21 05:31 RBC 3.18 10^6/uL (4.70-6.10) L 03/30/21 05:31 Hgb 8.0 g/dL (14.0-18.0) L 03/30/21 05:31 Hct 25.9 % (42.0-52.0) L 03/30/21 05:31 MCV 81.4 fL (80.0-94.0) 03/30/21 05:31 MCH 25.2 pg (27.0-31.0) L 03/30/21 05:31 MCHC 30.9 g/dL (32.0-36.0) L 03/30/21 05:31 RDW 21.6 % (12.0-15.0) H 03/30/21 05:31 Plt Count 172 10^3/uL (130-450) 03/30/21 05:31 MPV 11.1 fL (7.4-11.4) 03/30/21 05:31 Reticulocyte % (Auto) 2.31 % (0.5-2.3) H 03/09/21 05:41 Neut # (Auto) 4.5 10^3/uL (1.5-6.6) 03/30/21 05:31 Lymph # (Auto) 0.7 10^3/uL (1.5-3.5) L 03/30/21 05:31 Lincoln # (Auto) 0.9 10^3/uL (0.0-1.0) 03/30/21 05:31 Eos # (Auto) 0.2 10^3/uL (0.0-0.7) 03/30/21 05:31 Baso # (Auto) 0.0 10^3/uL (0.0-0.1) 03/30/21 05:31 Absolute Nucleated RBC 0.00 x10^3/uL 03/30/21 05:31 Total Counted 100 03/08/21 04:09 Band Neuts % (Manual) Not Reportable 03/09/21 05:41 Abnorm Lymph % (Manual) Not Reportable 03/09/21 05:41 Nucleated RBC % 0.0 /100WBC 03/30/21 05:31 Neutrophils # (Manual) Not Reportable 03/09/21 05:41 Lymphocytes # (Manual) Not Reportable 03/09/21 05:41 Monocytes # (Manual) Not Reportable 03/09/21 05:41 Eosinophils # (Manual) Not Reportable 03/09/21 05:41 Basophils # (Manual) Not Reportable 03/09/21 05:41 Differential Comment MANUAL=AUTO DIFF 03/09/21 05:41 Manual Slide Review Indicated 03/30/21 05:31 WBC Morphology NORMAL APPEARANCE (NORMAL) 03/21/21 05:34 Platelet Estimate NORMAL (130-450,000) (NORMAL) 03/30/21 05:31 Platelet Morphology NORMAL APPEARANCE (NORMAL) 03/30/21 05:31 RBC Morph Micro Appear 2+ HYPOCHROMASIA (NORMAL) 1+ ANISOCYTOSIS (NORMAL) 03/30/21 05:31 RBC Morph Micro Appear 2+ HYPOCHROMASIA (NORMAL) 1+ ANISOCYTOSIS (NORMAL) 03/30/21 05:31 Absolute Retic 0.073 10^6/uL (0.020-0.110) 03/09/21 05:41 PT 16.3 secs (9.9-12.6) H 02/28/21 12:34 INR 1.5 (0.8-1.2) H 02/28/21 12:34 APTT 30.2 secs (24.9-33.3) 02/28/21 12:34 Bld Gas Analysis Time 2320 02/28/21 23:15 Sample Site RIGHT RADIAL 02/28/21 23:15 ABG pH 7.41 (7.35-7.45) 02/28/21 23:15 ABG pCO2 20 mmHg (34-45) L* 02/28/21 23:15 ABG pO2 89 mmHg (80-100) 02/28/21 23:15 ABG HCO3 12.5 mmol/L (22.0-26.0) L 02/28/21 23:15 ABG Total CO2 13.1 MMOL/L (21.0-29.0) L 02/28/21 23:15 ABG O2 Saturation 96 % (94-98) 02/28/21 23:15 ABG Base Excess -10.5 mmol/L (-2.0-3.0) L 02/28/21 23:15 Thanh Test POSITIVE 02/28/21 23:15 VBG pH 7.396 (7.31-7.41) 03/02/21 16:45 VBG pCO2 19.0 mmHg (41-51) L 02/28/21 22:02 VBG pO2 75.4 mmHg (25-47) H 02/28/21 22:02 VBG HCO3 11.7 mmol/L (23-28) L 02/28/21 22:02 VBG Total CO2 12.3 mmol/L (24-29) L 02/28/21 22:02 VBG O2 Saturation 93.4 % (60-80) H 02/28/21 22:02 VBG Base Excess -11.0 mmol/L (-2 - +2) L 02/28/21 22:02 Ionized Calcium 1.05 mmol/L (1.15-1.33) L 03/02/21 16:45 O2 Delivery Device NON REBREATHER MASK 02/28/21 23:15 FiO2 21.00 02/28/21 23:15 Sodium 135 mmol/L (135-145) 03/30/21 05:31 Potassium 3.8 mmol/L (3.5-5.0) 03/30/21 05:31 Chloride 102 mmol/L (101-111) 03/30/21 05:31 Carbon Dioxide 25 mmol/L (21-32) 03/30/21 05:31 Anion Gap 8.0 (6-13) 03/30/21 05:31 BUN 17 mg/dL (6-20) 03/30/21 05:31 Creatinine 0.9 mg/dL (0.6-1.2) 03/30/21 05:31 Estimated GFR (MDRD) 83 (>89) L 03/30/21 05:31 Glucose 106 mg/dL (70-100) H 03/30/21 05:31 POC Whole Bld Glucose 134 mg/dL (70 - 100) H 02/28/21 12:27 Lactic Acid 2.5 mmol/L (0.5-2.2) H 02/28/21 21:44 Calcium 8.8 mg/dL (8.5-10.3) 03/30/21 05:31 Phosphorus 3.4 mg/dL (2.5-4.6) 03/09/21 05:41 Magnesium 1.9 mg/dL (1.7-2.8) 03/08/21 04:09 Iron 18 ug/dL (45-182) L 03/09/21 05:41 TIBC 193 ug/dL (250-450) L 03/09/21 05:41 % Saturation 9 % (20-50) L 03/09/21 05:41 Transferrin 138 mg/dL (180-329) L 03/09/21 05:41 Ferritin 110.3 ng/mL (23.9-336.2) 03/09/21 05:41 Total Bilirubin 2.7 mg/dL (0.2-1.0) H 03/05/21 04:48 AST 19 IU/L (10-42) 03/05/21 04:48 ALT 15 IU/L (10-60) 03/05/21 04:48 Alkaline Phosphatase 100 IU/L (42-121) 03/05/21 04:48 Ammonia 22.0 umol/L (7-35) 03/07/21 11:55 Lactate Dehydrogenase 135 IU/L (91-225) 03/09/21 05:41 Total Creatine Kinase 36 IU/L (22-269) 02/28/21 12:34 Troponin I High Sens 17.5 ng/L (2.3-19.7) 03/03/21 16:42 B-Natriuretic Peptide 313 pg/mL (5-100) H 03/01/21 02:39 Total Protein 6.0 g/dL (6.7-8.2) L 03/05/21 04:48 Albumin 2.1 g/dL (3.2-5.5) L 03/05/21 04:48 Globulin 3.9 g/dL (2.1-4.2) 03/05/21 04:48 Albumin/Globulin Ratio 0.5 (1.0-2.2) L 03/05/21 04:48 Lipase 251 U/L (22-51) H 02/28/21 21:44 Vitamin B12 1216 pg/mL (180-914) H 03/09/21 05:41 Folate 32.00 ng/mL (5.90 - >24.8) 03/09/21 05:41 TSH 2.35 uIU/mL (0.34-5.60) 02/28/21 12:34 Free T4 0.69 ng/dL (0.58-1.64) 02/28/21 12:34 Urine Color DARK YELLOW 02/28/21 13:03 Urine Clarity CLOUDY (CLEAR) 02/28/21 13:03 Urine pH 6.0 PH (5.0-7.5) 02/28/21 13:03 Ur Specific [place] 1.015 (1.002-1.030) 02/28/21 13:03 Urine Protein NEGATIVE mg/dL (NEGATIVE) 02/28/21 13:03 Urine Glucose (UA) NEGATIVE mg/dL (NEGATIVE) 02/28/21 13:03 Urine Ketones NEGATIVE mg/dL (NEGATIVE) 02/28/21 13:03 Urine Occult Blood LARGE (NEGATIVE) H 02/28/21 13:03 Urine Nitrite NEGATIVE (NEGATIVE) 02/28/21 13:03 Urine Bilirubin NEGATIVE (NEGATIVE) 02/28/21 13:03 Urine Urobilinogen 1 (NORMAL) E.U./dL (NORMAL) 02/28/21 13:03 Ur Leukocyte Esterase MODERATE (NEGATIVE) H 02/28/21 13:03 Urine RBC 6-10 /HPF (0-5) H 02/28/21 13:03 Urine WBC >25 /HPF (0-3) H 02/28/21 13:03 Ur Squamous Epith Cells NONE SEEN (<= Few) 02/28/21 13:03 Urine Bacteria Few /HPF (None Seen) 02/28/21 13:03 Ur Microscopic Review INDICATED 02/28/21 13:03 Urine Culture Comments INDICATED 02/28/21 13:03 Nasal Adenovirus (PCR) NOT DETECTED 02/28/21 14:05 Nasal B. parapertussis DNA (PCR) NOT DETECTED 02/28/21 14:05 Nasal Coronavir 229E PCR NOT DETECTED 02/28/21 14:05 Nasal Coronavir HKU1 PCR NOT DETECTED 02/28/21 14:05 Nasal Coronavir NL63 PCR NOT DETECTED 02/28/21 14:05 Nasal Coronavir OC43 PCR NOT DETECTED 02/28/21 14:05 Nasal Enterovir/Rhinovir PCR NOT DETECTED 02/28/21 14:05 Nasal Influenza B PCR NOT DETECTED 02/28/21 14:05 Nasal Influenza A PCR NOT DETECTED 02/28/21 14:05 Nasal Parainfluen 1 PCR NOT DETECTED 02/28/21 14:05 Nasal Parainfluen 2 PCR NOT DETECTED 02/28/21 14:05 Nasal Parainfluen 3 PCR NOT DETECTED 02/28/21 14:05 Nasal Parainfluen 4 PCR NOT DETECTED 02/28/21 14:05 Nasal RSV (PCR) NOT DETECTED 02/28/21 14:05 Nasal Screen MRSA (PCR) NEGATIVE (NEGATIVE) 03/01/21 22:00 Nasal B.pertussis DNA PCR NOT DETECTED 02/28/21 14:05 Nasal C.pneumoniae (PCR) NOT DETECTED 02/28/21 14:05 Gregory Human Metapneumo PCR NOT DETECTED 02/28/21 14:05 Nasal M.pneumoniae (PCR) NOT DETECTED 02/28/21 14:05 Nasal SARS-CoV-2 (PCR) NOT DETECTED 02/28/21 14:05 Stl C. diff Tox B Gene NEGATIVE (NEGATIVE) 03/03/21 00:30 Salicylates < 6.0 mg/dL 02/28/21 12:34 Urine Opiates Screen NEGATIVE (NEGATIVE) 02/28/21 13:03 Ur Oxycodone Screen NEGATIVE (NEGATIVE) 02/28/21 13:03 Urine Methadone Screen NEGATIVE (NEGATIVE) 02/28/21 13:03 Ur Propoxyphene Screen NEGATIVE (NEGATIVE) 02/28/21 13:03 Acetaminophen < 10 ug/mL (10-30) L 02/28/21 12:34 Ur Barbiturates Screen NEGATIVE (NEGATIVE) 02/28/21 13:03 Ur Tricyclics Screen NEGATIVE (NEGATIVE) 02/28/21 13:03 Ur Phencyclidine Scrn NEGATIVE (NEGATIVE) 02/28/21 13:03 Ur Amphetamine Screen NEGATIVE (NEGATIVE) 02/28/21 13:03 U Methamphetamines Scrn NEGATIVE (NEGATIVE) 02/28/21 13:03 U Benzodiazepines Scrn NEGATIVE (NEGATIVE) 02/28/21 13:03 Urine Cocaine Screen NEGATIVE (NEGATIVE) 02/28/21 13:03 U Cannabinoids Screen NEGATIVE (NEGATIVE) 02/28/21 13:03 Ethyl Alcohol < 5.0 mg/dL 02/28/21 12:34 Blood Type A POSITIVE 03/19/21 08:10 Antibody Screen NEGATIVE 03/19/21 08:10 Crossmatch IS Only See Detail 03/19/21 08:10 - Procedures Procedures: Procedures DRAINAGE OF PERITONEAL CAVITY, PERCUTANEOUS APPROACH, DIAGN (12/19/15) TRANSFUSE NONAUT RED BLOOD CELLS IN PERIPH VEIN, PERC (12/19/15) Sepsis Event Note (H) - Evaluation Possible source of Sepsis: positive: Genitourinary, Skin/soft tissue ABX Reporting Has patient been on IV antibiotics over the past 48 hours?: No Current Medications - Current Medications Current Medications: Active Medications Diltiazem HCl (Diltiazem Cd 120 Mg Capsule) 120 mg PO DAILY [facility] Last Admin: 04/04/21 09:42 Dose: 120 mg Documented by: Ferrous Gluconate (Ferrous Gluconate 324 Mg Tablet) 324 mg PO DAILYWM [facility] Last Admin: 04/04/21 09:43 Dose: 324 mg Documented by: Furosemide (Furosemide 20 Mg Tablet) 20 mg PO DAILY [facility] Last Admin: 04/04/21 09:42 Dose: 20 mg Documented by: Ibuprofen (Ibuprofen 400 Mg Tablet) 400 mg PO Q6HR PRN PRN Reason: PAIN Last Admin: 03/30/21 09:04 Dose: 400 mg Documented by: Lactulose (Lactulose 10 Gm /15 Ml Udc) 10 gm PO DAILY [facility] Last Admin: 04/04/21 09:43 Dose: 10 gm Documented by: Multi-Ingredient Ointment (Zinc Oxide 20% Oint 30 Gm Tube) 1 applic TOP PRN PRN PRN Reason: Skin Care Last Admin: 03/22/21 11:40 Dose: 1 applic Documented by: Pantoprazole Sodium (Pantoprazole 40 Mg Tablet) 40 mg PO QDAC [facility] Last Admin: 04/04/21 05:37 Dose: 40 mg Documented by: Multivit/Folic Acid/Iron ( Vitamin Tablet) 1 tab PO DAILYWM [facility] Last Admin: 04/04/21 09:42 Dose: 1 tab Documented by: Propranolol HCl (Propranolol 10 Mg Tablet) 10 mg PO BID [facility] Last Admin: 04/04/21 09:43 Dose: 10 mg Documented by: Saccharomyces Boulardii (Saccharomyces Boulardii 250 Mg Capsule) 250 mg PO DAILY [facility] Last Admin: 04/04/21 09:42 Dose: 250 mg Documented by: Spironolactone (Spironolactone 25 Mg Tablet) 25 mg PO DAILY [facility] Last Admin: 04/04/21 09:42 Dose: 25 mg Documented by: Tamsulosin HCl (Tamsulosin 0.4 Mg Capsule) 0.4 mg PO DAILY [facility] Last Admin: 04/04/21 09:42 Dose: 0.4 mg Documented by: Thiamine HCl (Thiamine 100 Mg Tablet) 100 mg PO DAILY [facility] Last Admin: 04/04/21 09:42 Dose: 100 mg Documented by: Zinc Oxide (Cod Liver Oil/Zinc Oxide 113 Gm Tube) 113 gm TOP PRN PRN PRN Reason: Skin Care Last Admin: 03/08/21 14:54 Dose: 1 applic Documented by: Furosemide [Lasix] 20 mg PO DAILY 07/31/20 Propranolol [Inderal] 10 mg PO BID 07/31/20 Spironolactone [Aldactone] 25 mg PO DAILY 07/31/20
[2021-04-05] MEDS: PANTOPRAZOLE 40 MG TABLET PO SCH (06:14)
[2021-04-05 07:47] VITALS: BP 115/55
[2021-04-05] MEDS: PRENATAL VITAMIN TABLET PO SCH (08:16)
[2021-04-05] MEDS: FERROUS GLUCONATE 324 MG TABLET PO SCH (08:16)
[2021-04-05] MEDS: diltiaZEM CD 120 MG CAPSULE PO SCH (08:17)
[2021-04-05] MEDS: THIAMINE 100 MG TABLET PO SCH (08:17)
[2021-04-05] MEDS: PROPRANOLOL 10 MG TABLET PO SCH (08:17)
[2021-04-05] MEDS: SPIRONOLACTONE 25 MG TABLET PO SCH (08:17)
[2021-04-05] MEDS: SACCHAROMYCES BOULARDII 250 MG CAPSULE PO SCH (08:17)
[2021-04-05] MEDS: TAMSULOSIN 0.4 MG CAPSULE PO SCH (08:17)
[2021-04-05] MEDS: FUROSEMIDE 20 MG TABLET PO SCH (08:17)
[2021-04-05] MEDS: LACTULOSE 10 GM /15 ML UDC PO SCH (08:18)
--- NOTE | 2021-04-05 13:47 | DISCHARGE SUMMARY ---
Discharge Summary Admit Date: 03/01/21 Discharge Date: 04/05/21 Discharging Provider: Thee Richardson Condition at Discharge: Stable Discharge Disposition: 07 Against Medical Advice - DIAGNOSES Discharge Diagnoses with Status of Each Condition: 1, AMA pt want to leave hospital today by AMA. pt is alert and oriented. pt is scheduled to be interviewed by [facility] on today. This is the day we wait for 35 days. I tried to talk with pt to find any reason he want to leave, and hopefully pt could be evaluated by HCS on today. But pt refused to disclose. He state "God give me the right to leave this door and leave the hospital." I called pt's daughter about pt's AMA decision and left message to her. But I did not receive her call back. Nurse Beatris and I discussed with pt about the risk of AMA, he verbally understood the risk of AMA but pt was still consistent to want to leave hospital, and he refused to sign on AMA paper. I reconcile pt's home meds and send new home meds to pt's pharmacy, pt state his pharmacy is [facility]. 2, hx of alcoholism pt promised he will quit alcohol. 3, End stage of liver disease pt is clinically stable now. pt ate most of his diet and walk on the hallway. 4. Acute renal failure resolved. 5. Metabolic encephalopathy resolved as his baseline. 6. SVT. resolved. pt is prescribed Cardizem. 7. Urinary incontinence. pt is prescribed Flomax. pt can urinate now. 8. Iron deficiency anemia. stable, pt is prescribed iron 9. Staph aureus bacteremia. resolved. 10. problem related to social environment, unspecified unfortunately pt leave hospital by AMA. pt was consulted with social worker psychiatric to get help. - HPI History of Present Illness: refer from Dr. Casey's HPI on 03/01/21 The patient is a 70-year-old chronically ill white male with past medical history of alcoholism to the level of debility anmd end-stage liver disease. He presented to the ER via EMS after he was found down at a local hotel. He was critically ill, obtunded and could not meaningfully interact. Therefore, the history was obtained from the ER and per medical record review. Per ER physician Dr. Da Silva's initial report: "Patient is a 70-year-old male brought in by EMS today after he was found down at a hotel that he has been living at. He has a longstanding history of alcoholism and cirrhosis. Unclear if he has been taking his medications or not. EMS states he was covered in feces and very confused. Patient states that he has no pain. He states that he has been sick. He is unable to give any further information about what he means by "sick". No fevers. No chills. He denies any diarrhea or vomiting. He denies any trauma." Patient could not interact, he did not have advanced directive or available medical records and no family member was available. Therefore he was evaluated and treated according to full CODE STATUS. As he had critical illness and severe uremia/renal failure, transfer to higher level of care was initiated. In the meantime the patient stayed in the ER received IV hydration and multiple other medications, as a result, data-evans he improved however remained obtunded and critically ill otherwise. He stayed in the ER for more than 24 hours. During this time attempts were made to reach family members and finally ER physician could reach the patient's next of kin/daughter. The daughter reported that the patient should not receive resuscitation, aggressive care and he should not be transferred for higher level of care. Per the daughter the patient would never consider cardiopulmonary resuscitation, dialysis or any aggressive care. As she described the patient's main concern is drinking alcohol until he would pass out and when he improves enough to drink again he repeats the cycle. As it was clearly determined that the CODE STATUS is DO NOT RESUSCITATE with limited interventions more like comfort focused care, the patient is getting admitted to [facility]. Due to his high care needs ICU admission is initiated. Regarding ER work-up, pertinent results are listed below - HOSPITAL COURSE Hospital Course: pt was admitted for critically ill, obtunded, AMS. pt was found to have SVT, renal failure creatinine at 10.3, end stage of liver disease, Encephalopathy. Patient has history of alcoholism, Patient also develop bacteremia, anemia. Patient was also consulted with social work for His disposition planning. After treatment, patient's SVT, renal failure are Resolved. Patient's mental status returned his baseline. Patient become alert and orientated. Patient is scheduled to be interviewed by HCS on today. Unfortunately patient refused to stay hospital anymore, left hospital by AMA on today. - ALLERGIES Allergies/Adverse Reactions: Allergies Allergy/AdvReac Type Severity Reaction Status Date / Time No Known Drug Allergies Allergy Verified 07/31/20 15:09 - MEDICATIONS Home Medications: Ambulatory Orders Medication Instructions Recorded Confirmed Folic Acid 1 mg PO DAILY 30 Days #30 07/31/20 03/01/21 Furosemide [Lasix] 20 mg PO DAILY 07/31/20 03/01/21 Pantoprazole [Protonix] 40 mg PO DAILY #30 07/31/20 03/01/21 Propranolol [Inderal] 10 mg PO BID 07/31/20 03/01/21 Spironolactone [Aldactone] 25 mg PO DAILY 07/31/20 03/01/21 Ferrous Gluconate [Fergon] 324 mg PO DAILYWM #30 tablet 04/05/21 Lactulose 15 ml PO DAILY #30 bottle 04/05/21 Tamsulosin [Flomax] 0.4 mg PO DAILY #30 cap 04/05/21 [id number] CD [Cardizem Cd] 120 mg PO DAILY #30 cap 04/05/21 - PHYSICAL EXAM AT DISCHARGE Physical Exam Other/Comments: Patient left the hospital by AMA, could not provide physically assessment for pt - LABS Result Diagrams: 03/30/21 05:31 03/30/21 05:31 - SEPSIS Possible source of Sepsis: Genitourinary, Skin/soft tissue - FOLLOW UP Follow Up: pt left hospital by AMA, strongly advise pt quit alcohol. - TIME SPENT Time Spent in Discharge (Minutes): 30
== END 2021-04-05 13:20 | disposition left against medical advice (07) | DRG 432 ==
LOC: EDUNIT# → ED 11:42 → ICU 03-01 21:15 → MS2 03-08 14:30
PROVIDERS: ADMIT Internal Medicine; ATTEND Nurse Practitioner Gerontology
PROC: 30233N1 Transfusion of Nonautologous Red Blood Cells into Peripheral Vein, Percutaneous Approach (ICD-10-PCS; principal; 2021-03-19)
DX: K70.40 Alcoholic hepatic failure without coma (principal); N30.00 Acute cystitis without hematuria; A41.01 Sepsis due to Methicillin susceptible Staphylococcus aureus; K74.60 Unspecified cirrhosis of liver; F10.10 Alcohol abuse, uncomplicated; B37.2 Candidiasis of skin and nail; J96.01 Acute respiratory failure with hypoxia; H54.7 Unspecified visual loss; G93.41 Metabolic encephalopathy; Z20.822 Contact with and (suspected) exposure to COVID-19; E43 Unspecified severe protein-calorie malnutrition; R00.0 Tachycardia, unspecified; R65.20 Severe sepsis without septic shock; F10.239 Alcohol dependence with withdrawal, unspecified; N17.9 Acute kidney failure, unspecified; D68.4 Acquired coagulation factor deficiency; E87.2 Acidosis; K76.6 Portal hypertension; N13.6 Pyonephrosis; F10.27 Alcohol dependence with alcohol-induced persisting dementia; I85.10 Secondary esophageal varices without bleeding; E87.0 Hyperosmolality and hypernatremia; I47.1 Supraventricular tachycardia; K70.31 Alcoholic cirrhosis of liver with ascites; I10 Essential (primary) hypertension; E86.0 Dehydration; E88.09 Other disorders of plasma-protein metabolism, not elsewhere classified; R31.9 Hematuria, unspecified; Z66 Do not resuscitate; Z51.5 Encounter for palliative care; Z68.26 Body mass index [BMI] 26.0-26.9, adult; D50.0 Iron deficiency anemia secondary to blood loss (chronic); D73.2 Chronic congestive splenomegaly; E87.8 Other disorders of electrolyte and fluid balance, not elsewhere classified; R32 Unspecified urinary incontinence; I48.91 Unspecified atrial fibrillation; R26.0 Ataxic gait; M62.50 Muscle wasting and atrophy, not elsewhere classified, unspecified site; Z59.00 Homelessness unspecified; Z79.899 Other long term (current) drug therapy; Z53.29 Procedure and treatment not carried out because of patient's decision for other reasons
CPT/HCPCS: 36415; 36600; 51700; 51702; 70450; 71045; 72125; 76700; 76770; 80048; 80053; 80306; 80307; 81001; 82140; 82330; 82550; 82607; 82728; 82746; 82803; 83540; 83605; 83615; 83690; 83735; 83880; 84100; 84132; 84439; 84443; 84466; 84484; 85025; 85045; 85610; 85730; 86850; 86900; 86901; 86920; 87040; 87086; 87150; 87181; 87493; 87631; 87640; 93005; 93306; 94640; 94664; 96365; 96366; 96367; 96368; 96375; 96376; 97112; 97116; 97162; 97166; 97530; 97535; 99285; A9270; G0480; J0153; J2060; J3370; J3411; J7040; P9016; 0202U; 80320; 80329; 81003

== ENCOUNTER 2021-04-10 12:06 | Outpatient (CLI) | payer MEDICARE | END 2021-04-10 12:07 | disposition EMS.NT | LOC: EMS 12:06 | DX: Z03.89 Encounter for observation for other suspected diseases and conditions ruled out (principal) ==

== ENCOUNTER 2021-04-13 13:43 | Emergency (ER) | payer MEDICARE ==
[2021-04-13 15:06] LABS: BASOPHILS % (AUTO) 0.3 %; EOSINOPHILS # (AUTO) 0.1 10^3/uL (0.0-0.7); EOSINOPHILS % (AUTO) 0.9 %; HCT - HEMATOCRIT 31.8 % (42.0-52.0); HGB - HEMOGLOBIN 9.7 g/dL (14.0-18.0); LYMPHOCYTES # (AUTO) 1.2 10^3/uL (1.5-3.5); LYMPHOCYTES % (AUTO) 10.2 %; MEAN CORPUSCULAR HEMOGLOBIN 24.1 pg (27.0-31.0); MEAN CORPUSCULAR HGB CONC 30.5 g/dL (32.0-36.0); MEAN CORPUSCULAR VOLUME 78.9 fL (80.0-94.0); MEAN PLATELET VOLUME 10.1 fL (7.4-11.4); MONOCYTES # (AUTO) 1.2 10^3/uL (0.0-1.0); MONOCYTES % (AUTO) 9.8 %; NEUTROPHILS # (AUTO) 9.5 10^3/uL (1.5-6.6); NEUTROPHILS % (AUTO) 78.4 %; PLT - PLATELET COUNT 236 10^3/uL (130-450); RED BLOOD COUNT 4.03 10^6/uL (4.70-6.10); RED CELL DISTRIBUTION WIDTH 20.4 % (12.0-15.0); WHITE BLOOD COUNT 12.1 x10^3/uL (4.8-10.8)
[2021-04-13 15:08] LABS: SLIDE REVIEW? Indicated
[2021-04-13 15:20] LABS: ALBUMIN 3.2 g/dL (3.2-5.5); ALBUMIN/GLOBULIN RATIO 0.7 (1.0-2.2); BILIRUBIN,TOTAL 2.6 mg/dL (0.2-1.0); CALCIUM 9.3 mg/dL (8.5-10.3); ETOH - ETHANOL 117.8 mg/dL; POTASSIUM 3.2 mmol/L (3.5-5.0); TOTAL PROTEIN 7.5 g/dL (6.7-8.2)
[2021-04-13 15:26] LABS: PLATELET ESTIMATE, MANUAL NORMAL (130-450,000) (NORMAL); PLATELET MORPHOLOGY NORMAL APPEARANCE (NORMAL); WBC MORPHOLOGY (MULTIPLE) NORMAL APPEARANCE (NORMAL)
[2021-04-13] MEDS ORDERED: POTASSIUM CHLORIDE 20 MEQ TABLET PO STA (16:39)
--- NOTE | 2021-04-13 16:45 | ED Physician Documentation ---
History of Present Illness - Stated complaint Stated Complaint: CONFUSION - Chief complaint Chief Complaint: General - Additonal information Additional information: -year-old male who has a history of end-stage liver disease, chronic alcoholism, and history of SVT presents to the emergency department requesting medications to help treat his disease condition. He is also reporting increased difficulty urinating though not obstructed. Patient was admitted to this hospital for approximately 35 days and left AGAINST MEDICAL ADVICE on 05 April. He was unable to fill his prescriptions and is requesting that we resend them to the [facility] in [place]. He admits to drinking 2 beers prior to arrival and his blood alcohol today is 174. He has no fevers, no abdominal pain. He is alert, oriented. He is aware of the date time and his place. Review of Systems Constitutional: denies: Fever, Chills Nose: reports: Reviewed and negative Throat: reports: Reviewed and negative Cardiac: reports: Reviewed and negative Respiratory: denies: Dyspnea, Cough GI: denies: Abdominal Pain, Nausea, Vomiting, Constipation, Diarrhea : reports: Unable to Void Skin: reports: Reviewed and negative Musculoskeletal: reports: Reviewed and negative PD PAST MEDICAL HISTORY - Past Medical History Cardiovascular: Hypertension Respiratory: None Neuro: Dementia Endocrine/Autoimmune: None GI: Cirrhosis : None HEENT: Chronic vision loss, Other Psych: None Musculoskeletal: None Derm: None - Past Surgical History Past Surgical History: Yes General: Other HEENT: Tonsil/Adenoidectomy - Present Medications Home Medications: Ambulatory Orders Medication Instructions Recorded Confirmed Folic Acid 1 mg PO DAILY 30 Days #30 07/31/20 03/01/21 Furosemide [Lasix] 20 mg PO DAILY 07/31/20 03/01/21 Pantoprazole [Protonix] 40 mg PO DAILY #30 07/31/20 03/01/21 Propranolol [Inderal] 10 mg PO BID 07/31/20 03/01/21 Spironolactone [Aldactone] 25 mg PO DAILY 07/31/20 03/01/21 Ferrous Gluconate [Fergon] 324 mg PO DAILYWM #30 tablet 04/05/21 Lactulose 15 ml PO DAILY #30 bottle 04/05/21 Tamsulosin [Flomax] 0.4 mg PO DAILY #30 cap 04/05/21 diltiaZEM CD [Cardizem Cd] 120 mg PO DAILY #30 cap 04/05/21 Diltiazem HCl [Diltiazem 12Hr ER] 120 mg PO DAILY #30 cap 04/13/21 Ferrous Gluconate 324 mg PO DAILY #30 tablet 04/13/21 Furosemide [Lasix] 20 mg PO DAILY #30 tablet 04/13/21 Lactulose 15 ml PO DAILY #240 ml 04/13/21 Multivit with Calcium,Iron,Min 1 each PO DAILY #30 tablet 04/13/21 [One Daily Women's] Pantoprazole Sodium [Protonix] 40 mg PO DAILY #30 tab 04/13/21 Propranolol [Inderal] 10 mg PO BID #60 tablet 04/13/21 Spironolactone [Aldactone] 25 mg PO DAILY #30 tablet 04/13/21 Tamsulosin HCl [Flomax] 0.4 mg PO DAILY #30 cap 04/13/21 Thiamine HCl [Vitamin B-1] 100 mg PO DAILY #30 tablet 04/13/21 - Allergies Allergies/Adverse Reactions: Allergies Allergy/AdvReac Type Severity Reaction Status Date / Time No Known Drug Allergies Allergy Verified 04/13/21 13:49 - Social History Does the pt smoke?: No Smoking Status: Former smoker Does the pt drink ETOH?: Yes Does the pt have substance abuse?: Yes - Immunizations Immunizations are current?: Yes Immunizations: TDAP >10years/unknown - POLST Patient has POLST: No PD ED PE EXPANDED - General General: Alert, No acute distress, Well developed/nourished - Cardiac Cardiac: Regular Rate, Cap refill < 2 sec - Respiratory Respiratory: Clear to ausultation vinod. No: Distress, Labored - Abdomen Abdomen: Normal Bowel sounds, Other (Mild palpable ascites. Nontense abdomen. Nontender abdomen.). No: Tender to palpation - Derm Derm: Normal color, Warm and dry, Bruising (Mild bruising on both hands and forearms) - Extremities Extremities: Normal. No: Deformity, Tenderness - Neuro Neuro: Alert and Oriented X 3, CNII-XII intact, Normal gait, Normal speech - GCS Eye Opening: Spontaneous Motor: Obeys Commands Verbal: Oriented Total: 15 Results - Vitals Vitals: Vital Signs - 24 hr 04/13/21 13:50 Temperature 36.5 C Heart Rate 100 Respiratory 16 Rate Blood Pressure 139/65 H O2 Saturation 96 Oxygen O2 Source [With Activity] Room air O2 Source Room air - Labs Labs: Laboratory Tests 04/13/21 04/13/21 04/13/21 15:01 15:01 15:01 WBC 12.1 H RBC 4.03 L Hgb 9.7 L Hct 31.8 L MCV 78.9 L MCH 24.1 L MCHC 30.5 L RDW 20.4 H Plt Count 236 MPV 10.1 Neut # (Auto) 9.5 H Lymph # (Auto) 1.2 L Wilkinson # (Auto) 1.2 H Eos # (Auto) 0.1 Baso # (Auto) 0.0 Absolute Nucleated RBC 0.00 Nucleated RBC % 0.0 Manual Slide Review Indicated WBC Morphology NORMAL APPEARANCE Platelet Estimate NORMAL (130-450,000) Platelet Morphology NORMAL APPEARANCE RBC Morph Micro Appear 1+ POLYCHROMASIA Sodium 133 L Potassium 3.2 L Chloride 99 L Carbon Dioxide 20 L Anion Gap 14.0 H BUN 15 Creatinine 1.0 Estimated GFR (MDRD) 73 L Glucose 100 Calcium 9.3 Total Bilirubin 2.6 H AST 41 ALT 23 Alkaline Phosphatase 172 H Ammonia 35.8 H Total Protein 7.5 Albumin 3.2 Globulin 4.3 H Albumin/Globulin Ratio 0.7 L Lipase 54 H Ethyl Alcohol 117.8 PD MEDICAL DECISION MAKING - ED course Complexity details: reviewed results, considered differential, d/w patient ED course: 70-year-old male who has a history of end-stage liver disease, SVT, and previously admitted for hepatic encephalopathy and left AMA 1 week ago presents to the ER requesting a refill of his medications. He has been having difficulty voiding as he has not had his Flomax. His medications were represcribed and electronically transmitted to the [facility] in [place]. Patient has no other acute complaints at this time. He understands that he needs to return to the ER at any point he can. He is alert, oriented to person place and time. He has no focal neuro deficits very nontender abdomen and vital signs are appropriate for age and condition. Screening labs were obtained. Patient is noted to have a mild leukocytosis. I offered chest x-ray but patient declined that at this time. He does have some transaminitis consistent with alcohol use. He is no further in renal failure. Departure - Departure Disposition: 01 Home, Self Care Clinical Impression: Medication refill, Hepatic encephalopathy Prescriptions: Spironolactone [Aldactone] 25 mg PO DAILY #30 tablet Diltiazem HCl [Diltiazem 12Hr ER] 120 mg PO DAILY #30 cap Ferrous Gluconate 324 mg PO DAILY #30 tablet Tamsulosin HCl [Flomax] 0.4 mg PO DAILY #30 cap Propranolol [Inderal] 10 mg PO BID #60 tablet Lactulose 15 ml PO DAILY #240 ml Furosemide [Lasix] 20 mg PO DAILY #30 tablet Multivit with Calcium,Iron,Min [One Daily Women's] 1 each PO DAILY #30 tablet Pantoprazole Sodium [Protonix] 40 mg PO DAILY #30 tab Thiamine HCl [Vitamin B-1] 100 mg PO DAILY #30 tablet Comments: Bobby lobo were seen in the emergency department today for having difficulty urinating and being unable to fill any of your medications after you left the hospital AGAINST MEDICAL ADVICE a week ago. I have sent the prescriptions for all of your medications to the [facility] in [place]. You should be able to fill these later this evening or tomorrow morning. It is very important that you continue to abstain from alcohol when able. Continue to schedule close follow-up with your primary care doctor as a primary will need to reorder refills of these in the future. If at any point you have black or bloody stools, are unable to urinate, develop uncontrolled vomiting chest pain or fevers then please return to the ER.
[2021-04-13 16:51] VITALS: BP 157/88
[2021-04-13 17:02] LABS: BILIRUBIN,URINE NEGATIVE (NEGATIVE); CLARITY,URINE CLEAR (CLEAR); GLUCOSE, URINE (UA) NEGATIVE (NEGATIVE); KETONES,URINE (UA) NEGATIVE (NEGATIVE); LEUKOCYTE ESTERASE, URINE NEGATIVE (NEGATIVE); NITRITE,URINE NEGATIVE (NEGATIVE); OCCULT BLOOD,URINE MODERATE (NEGATIVE); PROTEIN,URINE NEGATIVE (NEGATIVE); UROBILINOGEN,URINE 0.2 (NORMAL) E.U./dL (NORMAL)
[2021-04-13 17:15] LABS: BACTERIA,URINE Few /HPF (None Seen); SQUAMOUS EPITHELIAL CELL,UR RARE Squamous (<= Few); WBC CLUMPS,URINE PRESENT
== END 2021-04-13 17:06 | disposition home or self-care (01) ==
LOC: ED 13:43
DX: Z76.0 Encounter for issue of repeat prescription (principal); R39.198 Other difficulties with micturition; N18.6 End stage renal disease; D72.829 Elevated white blood cell count, unspecified; R74.01 Elevation of levels of liver transaminase levels; Z87.891 Personal history of nicotine dependence; F10.20 Alcohol dependence, uncomplicated
CPT/HCPCS: 36415; 51798; 80053; 81001; 82140; 83690; 85025; 99283; A9270; G0480; 80320; 81003; 87086

== ENCOUNTER 2021-05-01 10:34 | Outpatient (CLI) | payer MEDICARE | END 2021-05-01 10:35 | disposition critical access hospital (66) | LOC: EMS 10:34 | DX: R41.0 Disorientation, unspecified (principal); R14.0 Abdominal distension (gaseous) | CPT/HCPCS: A0425; A0429 ==

== ENCOUNTER 2021-05-01 10:51 | Emergency (ER) | payer MEDICARE ==
[2021-05-01] MEDS ORDERED: SODIUM CHLORIDE 0.9% 1,000 ML IV STA (11:01)
--- NOTE | 2021-05-01 11:03 | ED Physician Documentation ---
History of Present Illness - Stated complaint Stated Complaint: MALE - History obtained from History obtained from: Patient, EMS - Additonal information Additional information: Patient is brought to the emergency department via EMS for chief complaint of was not able to urinate this morning. Patient has a history of liver failure and alcohol abuse and has been seen multiple times for various complaints related to this. He denies any jaundice. No pain. Really does not have any other complaints besides the urinary retention. He states that he has been living at a motel. No other complaints at this time. Review of Systems Ten Systems: 10 systems reviewed and negative Constitutional: reports: Reviewed and negative Eyes: reports: Reviewed and negative Ears: reports: Reviewed and negative Nose: reports: Reviewed and negative Throat: reports: Reviewed and negative Cardiac: reports: Reviewed and negative Respiratory: reports: Reviewed and negative GI: reports: Reviewed and negative : reports: Unable to Void Skin: reports: Reviewed and negative Musculoskeletal: reports: Reviewed and negative Neurologic: reports: Reviewed and negative Psychiatric: reports: Reviewed and negative Endocrine: reports: Reviewed and negative Immunocompromised: reports: Reviewed and negative PD PAST MEDICAL HISTORY - Past Medical History Cardiovascular: Hypertension Respiratory: None Neuro: Dementia Endocrine/Autoimmune: None GI: Cirrhosis : None HEENT: Chronic vision loss, Other Psych: None Musculoskeletal: None Derm: None - Past Surgical History Past Surgical History: Yes General: Other HEENT: Tonsil/Adenoidectomy - Present Medications Home Medications: Ambulatory Orders Medication Instructions Recorded Confirmed Folic Acid 1 mg PO DAILY 30 Days #30 07/31/20 03/01/21 Furosemide [Lasix] 20 mg PO DAILY 07/31/20 03/01/21 Pantoprazole [Protonix] 40 mg PO DAILY #30 07/31/20 03/01/21 Propranolol [Inderal] 10 mg PO BID 07/31/20 03/01/21 Spironolactone [Aldactone] 25 mg PO DAILY 07/31/20 03/01/21 Ferrous Gluconate [Fergon] 324 mg PO DAILYWM #30 tablet 04/05/21 Lactulose 15 ml PO DAILY #30 bottle 04/05/21 Tamsulosin [Flomax] 0.4 mg PO DAILY #30 cap 04/05/21 diltiaZEM CD [Cardizem Cd] 120 mg PO DAILY #30 cap 04/05/21 Diltiazem HCl [Diltiazem 12Hr ER] 120 mg PO DAILY #30 cap 04/13/21 Ferrous Gluconate 324 mg PO DAILY #30 tablet 04/13/21 Furosemide [Lasix] 20 mg PO DAILY #30 tablet 04/13/21 Lactulose 15 ml PO DAILY #240 ml 04/13/21 Multivit with Calcium,Iron,Min 1 each PO DAILY #30 tablet 04/13/21 [One Daily Women's] Pantoprazole Sodium [Protonix] 40 mg PO DAILY #30 tab 04/13/21 Propranolol [Inderal] 10 mg PO BID #60 tablet 04/13/21 Spironolactone [Aldactone] 25 mg PO DAILY #30 tablet 04/13/21 Tamsulosin HCl [Flomax] 0.4 mg PO DAILY #30 cap 04/13/21 Thiamine HCl [Vitamin B-1] 100 mg PO DAILY #30 tablet 04/13/21 Sulfamethox/Trimeth 800/160 1 each PO BID #14 tablet 05/01/21 [Bactrim Ds 800/160] - Allergies Allergies/Adverse Reactions: Allergies Allergy/AdvReac Type Severity Reaction Status Date / Time No Known Drug Allergies Allergy Verified 05/01/21 11:04 - Social History Does the pt smoke?: No Smoking Status: Former smoker Does the pt drink ETOH?: Yes Does the pt have substance abuse?: Yes - Immunizations Immunizations are current?: Yes Immunizations: TDAP >10years/unknown - POLST Patient has POLST: No PD ED PE NORMAL - Vitals Vital signs reviewed: Yes - General General: Alert and oriented X 3, No acute distress, Well developed/nourished - HEENT HEENT: Atraumatic, PERRL, EOMI, Moist mucous membranes, Other (No icterus.) - Neck Neck: Supple, no meningeal sign - Cardiac Cardiac: RRR, No murmur - Respiratory Respiratory: No respiratory distress, Clear bilaterally - Abdomen Abdomen: Soft, Non tender, Other (Distention consistent with ascites. 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, Normal speech - Psych Psych: Normal mood, Normal affect Results - Vitals Vitals: Vital Signs - 24 hr 05/01/21 05/01/21 05/01/21 12:02 14:00 14:10 Temperature 37.0 C Heart Rate 104 H 90 115 H Respiratory 16 16 20 Rate Blood Pressure 142/68 H 138/70 H 152/67 H O2 Saturation 99 100 100 Oxygen O2 Source [With Activity] Room air O2 Source Room air - Labs Labs: Microbiology 05/01/21 12:48 Urine Culture - Final Urine,Catheterized No growth Laboratory Tests 05/01/21 05/01/21 05/01/21 11:16 11:16 11:16 WBC 8.4 RBC 2.89 L Hgb 7.3 L Hct 23.3 L MCV 80.6 MCH 25.3 L MCHC 31.3 L RDW 19.8 H Plt Count 219 MPV 10.8 Neut # (Auto) 6.2 Lymph # (Auto) 1.2 L Forrest # (Auto) 0.8 Eos # (Auto) 0.1 Baso # (Auto) 0.1 Absolute Nucleated RBC 0.00 Nucleated RBC % 0.0 PT 16.1 H INR 1.4 H Sodium 134 L Potassium 3.0 L Chloride 101 Carbon Dioxide 21 Anion Gap 12.0 BUN 21 H Creatinine 1.1 Estimated GFR (MDRD) 66 L Glucose 111 H Calcium 8.6 Total Bilirubin 1.7 H AST 32 ALT 16 Alkaline Phosphatase 137 H Total Protein 6.0 L Albumin 2.6 L Globulin 3.4 Albumin/Globulin Ratio 0.8 L Lipase 47 Urine Color Urine Clarity Urine pH Ur Specific [place] Urine Protein Urine Glucose (UA) Urine Ketones Urine Occult Blood Urine Nitrite Urine Bilirubin Urine Urobilinogen Ur Leukocyte Esterase Urine RBC Urine WBC Ur Squamous Epith Cells Urine Bacteria Ur Microscopic Review Urine Culture Comments 05/01/21 12:48 WBC RBC Hgb Hct MCV MCH MCHC RDW Plt Count MPV Neut # (Auto) Lymph # (Auto) Forrest # (Auto) Eos # (Auto) Baso # (Auto) Absolute Nucleated RBC Nucleated RBC % PT INR Sodium Potassium Chloride Carbon Dioxide Anion Gap BUN Creatinine Estimated GFR (MDRD) Glucose Calcium Total Bilirubin AST ALT Alkaline Phosphatase Total Protein Albumin Globulin Albumin/Globulin Ratio Lipase Urine Color YELLOW Urine Clarity CLEAR Urine pH 6.0 Ur Specific [place] 1.010 Urine Protein NEGATIVE Urine Glucose (UA) NEGATIVE Urine Ketones NEGATIVE Urine Occult Blood LARGE H Urine Nitrite NEGATIVE Urine Bilirubin NEGATIVE Urine Urobilinogen 0.2 (NORMAL) Ur Leukocyte Esterase TRACE H Urine RBC 11-25 H Urine WBC 11-25 H Ur Squamous Epith Cells NONE SEEN Urine Bacteria Rare Ur Microscopic Review INDICATED Urine Culture Comments INDICATED PD MEDICAL DECISION MAKING - ED course Complexity details: reviewed old records, reviewed results, re-evaluated patient, considered differential, d/w patient ED course: The patient was worked up with laboratory studies and urinalysis. Calix catheter was placed. His abdomen was soft and he was breathing without difficulty, and I did not feel that he was in need of an emergent paracentesis. Uncontaminated urine sample was positive for infection. Pt was started on abx and given a leg bag. He is instructed to follow up in a few days for removal of cath, preferably with his PCP. We have discussed the usual indications for return. Departure - Departure Disposition: 01 Home, Self Care Clinical Impression: Urinary retention UTI (urinary tract infection) Qualifiers: Urinary tract infection type: acute cystitis Hematuria presence: without hematuria Qualified Code(s): N30.00 - Acute cystitis without hematuria Condition: Stable Instructions: ED Retention Urinary Male, ED UTI Cystitis Male Prescriptions: Sulfamethox/Trimeth 800/160 [Bactrim Ds 800/160] 1 each PO BID #14 tablet Comments: A catheter is been placed for your urinary retention. You will need to leave this in for a few days and then follow-up with your doctor to have it taken out. Please take the antibiotics every day, as directed until done. Discharge Date/Time: 05/01/21 14:30
[2021-05-01 11:21] LABS: BASOPHILS # (AUTO) 0.1 10^3/uL (0.0-0.1); EOSINOPHILS # (AUTO) 0.1 10^3/uL (0.0-0.7); EOSINOPHILS % (AUTO) 1.1 %; HCT - HEMATOCRIT 23.3 % (42.0-52.0); HGB - HEMOGLOBIN 7.3 g/dL (14.0-18.0); LYMPHOCYTES # (AUTO) 1.2 10^3/uL (1.5-3.5); LYMPHOCYTES % (AUTO) 13.7 %; MEAN CORPUSCULAR HEMOGLOBIN 25.3 pg (27.0-31.0); MEAN CORPUSCULAR HGB CONC 31.3 g/dL (32.0-36.0); MEAN CORPUSCULAR VOLUME 80.6 fL (80.0-94.0); MEAN PLATELET VOLUME 10.8 fL (7.4-11.4); MONOCYTES # (AUTO) 0.8 10^3/uL (0.0-1.0); MONOCYTES % (AUTO) 9.9 %; NEUTROPHILS # (AUTO) 6.2 10^3/uL (1.5-6.6); NEUTROPHILS % (AUTO) 73.9 %; PLT - PLATELET COUNT 219 10^3/uL (130-450); RED BLOOD COUNT 2.89 10^6/uL (4.70-6.10); RED CELL DISTRIBUTION WIDTH 19.8 % (12.0-15.0); WHITE BLOOD COUNT 8.4 x10^3/uL (4.8-10.8)
[2021-05-01 11:28] LABS: INR 1.4 (0.8-1.2); PT - PROTHROMBIN TIME 16.1 secs (9.9-12.6)
[2021-05-01 11:35] LABS: ALBUMIN 2.6 g/dL (3.2-5.5); ALBUMIN/GLOBULIN RATIO 0.8 (1.0-2.2); BILIRUBIN,TOTAL 1.7 mg/dL (0.2-1.0); CALCIUM 8.6 mg/dL (8.5-10.3); CREATININE 1.1 mg/dL (0.6-1.2)
[2021-05-01 12:57] LABS: BILIRUBIN,URINE NEGATIVE (NEGATIVE); GLUCOSE, URINE (UA) NEGATIVE (NEGATIVE); KETONES,URINE (UA) NEGATIVE (NEGATIVE); LEUKOCYTE ESTERASE, URINE TRACE (NEGATIVE); NITRITE,URINE NEGATIVE (NEGATIVE); OCCULT BLOOD,URINE LARGE (NEGATIVE); PROTEIN,URINE NEGATIVE (NEGATIVE); UROBILINOGEN,URINE 0.2 (NORMAL) E.U./dL (NORMAL)
[2021-05-01 13:14] LABS: CLARITY,URINE CLEAR (CLEAR)
[2021-05-01 13:18] LABS: BACTERIA,URINE Rare /HPF (None Seen); SQUAMOUS EPITHELIAL CELL,UR NONE SEEN (<= Few)
[2021-05-01] MEDS ORDERED: SULFAMETH/TRIMETH DS 800/160 MG TABLET PO STA (14:00)
[2021-05-01 14:10] VITALS: BP 152/67
== END 2021-05-01 14:30 | disposition home or self-care (01) ==
LOC: EDUNIT# → ED 10:51
DX: N30.00 Acute cystitis without hematuria (principal); R33.9 Retention of urine, unspecified; K72.90 Hepatic failure, unspecified without coma; K74.60 Unspecified cirrhosis of liver; I10 Essential (primary) hypertension; F03.90 Unspecified dementia, unspecified severity, without behavioral disturbance, psychotic disturbance, mood disturbance, and anxiety; H54.7 Unspecified visual loss; F10.11 Alcohol abuse, in remission; Z87.891 Personal history of nicotine dependence
CPT/HCPCS: 36415; 51702; 80053; 81001; 83690; 85025; 85610; 87086; 96360; 99283; A9270; 81003

== ENCOUNTER 2021-05-02 02:11 | Outpatient (CLI) | payer MEDICARE | END 2021-05-02 02:12 | disposition EMS.NT | LOC: EMS 02:11 | DX: T83.018A Breakdown (mechanical) of other urinary catheter, initial encounter (principal); R10.9 Unspecified abdominal pain; R33.9 Retention of urine, unspecified ==

== ENCOUNTER 2021-05-23 10:44 | Outpatient (CLI) | payer MEDICARE | END 2021-05-23 10:45 | disposition EMS.NT | LOC: EMS 10:44 | DX: R06.00 Dyspnea, unspecified (principal); R42 Dizziness and giddiness ==

== ENCOUNTER 2021-05-24 13:22 | Outpatient (CLI) | payer MEDICARE | END 2021-05-24 13:23 | disposition critical access hospital (66) | LOC: EMS 13:22 | DX: K92.0 Hematemesis (principal); R41.0 Disorientation, unspecified | CPT/HCPCS: A0425; A0427 ==

== ENCOUNTER 2021-05-24 13:39 | Emergency (ER) | payer MEDICARE ==
[2021-05-24] MEDS ORDERED: OCTREOTIDE 100 MCG/ML VIAL IVP STA (13:58)
[2021-05-24] MEDS ORDERED: OCTREOTIDE 500 MCG in SODIUM CHLORIDE 0.9% 100ML 95 ML IV STA (13:58)
[2021-05-24] MEDS ORDERED: PANTOPRAZOLE 40 MG VIAL IVP STA (13:58)
[2021-05-24] MEDS ORDERED: SODIUM CHLORIDE 0.9% 1,000 ML IV STA ×2 (14:03)
[2021-05-24] MEDS ORDERED: cefTRIAXone 1 GM VIAL IVP STA (14:03)
[2021-05-24] MEDS ORDERED: OCTREOTIDE 500 MCG in SODIUM CHLORIDE 0.9% 100ML 99 ML IV STA (14:19)
--- NOTE | 2021-05-24 14:22 | ED Physician Documentation ---
History of Present Illness - Stated complaint Stated Complaint: GIB - Chief complaint Chief Complaint: Abd Pain - History obtained from History obtained from: Patient, EMS - History of Present Illness Pain level max: 0 Pain level now: 0 - Additonal information Additional information: Patient is a 70-year-old male who presents to the emergency department via EMS. He apparently lives at the [facility] and is a chronic alcoholic. He states he had vomiting of blood last night. He is unsure if it was bright or dark. He states no bleeding today, however EMS states that there was a towel saturated in blood. He has a history of liver cirrhosis. He has had esophageal varices in the past. On prior admissions to the hospital he was a DNR, comfort care. Review of Systems Unable to obtain: Other (alert, oriented to person, place and time, but slow to respond) Constitutional: denies: Fever Ears: denies: Ear pain Nose: denies: Rhinorrhea / runny nose Throat: denies: Sore throat Cardiac: denies: Chest pain / pressure, Palpitations Respiratory: denies: Cough GI: reports: Vomiting. denies: Diarrhea Skin: denies: Rash Neurologic: denies: Headache PD PAST MEDICAL HISTORY - Past Medical History Past Medical History: Yes Cardiovascular: Hypertension Respiratory: None Neuro: Dementia Endocrine/Autoimmune: None GI: Cirrhosis : None HEENT: Chronic vision loss, Other Psych: None Musculoskeletal: None Derm: None - Past Surgical History Past Surgical History: Yes General: Other HEENT: Tonsil/Adenoidectomy - Present Medications Home Medications: Ambulatory Orders Medication Instructions Recorded Confirmed Folic Acid 1 mg PO DAILY 30 Days #30 07/31/20 03/01/21 Furosemide [Lasix] 20 mg PO DAILY 07/31/20 03/01/21 Pantoprazole [Protonix] 40 mg PO DAILY #30 07/31/20 03/01/21 Propranolol [Inderal] 10 mg PO BID 07/31/20 03/01/21 Spironolactone [Aldactone] 25 mg PO DAILY 07/31/20 03/01/21 Ferrous Gluconate [Fergon] 324 mg PO DAILYWM #30 tablet 04/05/21 Lactulose 15 ml PO DAILY #30 bottle 04/05/21 Tamsulosin [Flomax] 0.4 mg PO DAILY #30 cap 10/20/21 diltiaZEM CD [Cardizem Cd] 120 mg PO DAILY #30 cap 04/05/21 Diltiazem HCl [Diltiazem 12Hr ER] 120 mg PO DAILY #30 cap 04/13/21 Ferrous Gluconate 324 mg PO DAILY #30 tablet 04/13/21 Furosemide [Lasix] 20 mg PO DAILY #30 tablet 04/13/21 Lactulose 15 ml PO DAILY #240 ml 04/13/21 Multivit with Calcium,Iron,Min 1 each PO DAILY #30 tablet 04/13/21 [One Daily Women's] Pantoprazole Sodium [Protonix] 40 mg PO DAILY #30 tab 04/13/21 Propranolol [Inderal] 10 mg PO BID #60 tablet 04/13/21 Spironolactone [Aldactone] 25 mg PO DAILY #30 tablet 04/13/21 Tamsulosin HCl [Flomax] 0.4 mg PO DAILY #30 cap 04/13/21 Thiamine HCl [Vitamin B-1] 100 mg PO DAILY #30 tablet 04/13/21 Sulfamethox/Trimeth 800/160 1 each PO BID #14 tablet 05/01/21 [Bactrim Ds 800/160] - Allergies Allergies/Adverse Reactions: Allergies Allergy/AdvReac Type Severity Reaction Status Date / Time No Known Drug Allergies Allergy Verified 05/24/21 13:57 - Social History Does the pt smoke?: No Smoking Status: Never smoker Does the pt drink ETOH?: Yes Does the pt have substance abuse?: Yes - Immunizations Immunizations are current?: Yes Immunizations: TDAP >10years/unknown - POLST Patient has POLST: No PD ED PE NORMAL - Vitals Vital signs reviewed: Yes - General General: No acute distress, Well developed/nourished, Other (alert, oriented to person, place and time, but slow to respond) - HEENT HEENT: Moist mucous membranes, Other (pale) - Neck Neck: Supple, no meningeal sign - Cardiac Cardiac: RRR, Strong equal pulses - Respiratory Respiratory: No respiratory distress, Clear bilaterally - Abdomen Abdomen: Soft, Non tender, Other (distended, caput medusa. ) - Derm Derm: Warm and dry - Extremities Extremities: No calf tenderness / cord - Neuro Neuro: Alert and oriented X 3 (alert, oriented to person, place and time, but slow to respond) Results - Vitals Vitals: Vital Signs - 24 hr 05/24/21 05/24/21 05/24/21 13:54 15:12 15:32 Temperature 97.8 C H 36.9 C Heart Rate 105 H 109 H 119 H Respiratory 23 21 26 H Rate Blood Pressure 116/64 112/60 114/57 L O2 Saturation 100 100 05/24/21 05/24/21 05/24/21 15:38 15:48 16:06 Temperature 36.4 C L 36.2 C L Heart Rate 109 H 118 H 110 H Respiratory 24 26 H 26 H Rate Blood Pressure 112/60 114/59 L 105/67 O2 Saturation 100 05/24/21 05/24/21 05/24/21 16:46 17:39 17:42 Temperature 36.5 C 36.4 C L Heart Rate 110 H 115 H 115 H Respiratory 24 27 H 20 Rate Blood Pressure 120/57 L 123/62 123/68 O2 Saturation 100 05/24/21 05/24/21 05/24/21 18:12 18:33 19:17 Temperature 36.1 C L 36.6 C Heart Rate 105 H 100 104 H Respiratory 16 20 23 Rate Blood Pressure 104/66 139/62 H 118/57 L O2 Saturation 100 05/24/21 05/24/21 05/24/21 19:46 20:09 20:14 Temperature 36.6 C Heart Rate 104 H 103 H 100 Respiratory 17 19 20 Rate Blood Pressure 128/65 120/73 120/73 O2 Saturation 100 100 05/24/21 05/24/21 05/24/21 20:20 20:30 21:07 Temperature 36.7 C 36.4 C L Heart Rate 104 H 99 101 H Respiratory 21 20 21 Rate Blood Pressure 120/73 121/71 125/71 O2 Saturation 100 Oxygen O2 Source [With Activity] Room air O2 Source Room air - Labs Labs: Laboratory Tests 05/24/21 05/24/21 05/24/21 14:16 14:16 14:16 WBC 10.9 H RBC 1.41 L Hgb 2.9 L* Hct 9.9 L* MCV 70.2 L MCH 20.6 L MCHC 29.3 L RDW 19.0 H Plt Count 241 MPV 10.1 Neut # (Auto) 8.0 H Lymph # (Auto) 1.4 L [place] # (Auto) 1.5 H Eos # (Auto) 0.0 Baso # (Auto) 0.0 Absolute Nucleated RBC 0.06 Nucleated RBC % 0.5 PT 18.4 H INR 1.6 H APTT 26.5 Sodium 136 Potassium 3.9 Chloride 102 Carbon Dioxide 23 Anion Gap 11.0 BUN 40 H Creatinine 1.4 H Estimated GFR (MDRD) 50 L Glucose 106 H Calcium 8.5 Total Bilirubin 1.6 H AST 31 ALT 19 Alkaline Phosphatase 104 Ammonia Total Protein 4.7 L Albumin 2.2 L Globulin 2.5 Albumin/Globulin Ratio 0.9 L Lipase 43 Urine Color Urine Clarity Urine pH Ur Specific [place] Urine Protein Urine Glucose (UA) Urine Ketones Urine Occult Blood Urine Nitrite Urine Bilirubin Urine Urobilinogen Ur Leukocyte Esterase Urine RBC Urine WBC Ur Squamous Epith Cells Urine Bacteria Ur Microscopic Review Urine Culture Comments Nasal Adenovirus (PCR) Nasal B. parapertussis DNA (PCR) Nasal Coronavir 229E PCR Nasal Coronavir HKU1 PCR Nasal Coronavir NL63 PCR Nasal Coronavir OC43 PCR Nasal Enterovir/Rhinovir PCR Nasal Influenza B PCR Nasal Influenza A PCR Nasal Parainfluen 1 PCR Nasal Parainfluen 2 PCR Nasal Parainfluen 3 PCR Nasal Parainfluen 4 PCR Nasal RSV (PCR) Nasal B.pertussis DNA PCR Nasal C.pneumoniae (PCR) Gregory Human Metapneumo PCR Nasal M.pneumoniae (PCR) Nasal SARS-CoV-2 (PCR) Ethyl Alcohol < 5.0 Blood Type Antibody Screen Crossmatch IS Only 05/24/21 05/24/21 05/24/21 14:16 14:16 14:16 WBC RBC Hgb Hct MCV MCH MCHC RDW Plt Count MPV Neut # (Auto) Lymph # (Auto) [place] # (Auto) Eos # (Auto) Baso # (Auto) Absolute Nucleated RBC Nucleated RBC % PT INR APTT Sodium Potassium Chloride Carbon Dioxide Anion Gap BUN Creatinine Estimated GFR (MDRD) Glucose Calcium Total Bilirubin AST ALT Alkaline Phosphatase Ammonia 23.3 Total Protein Albumin Globulin Albumin/Globulin Ratio Lipase Urine Color Urine Clarity Urine pH Ur Specific [place] Urine Protein Urine Glucose (UA) Urine Ketones Urine Occult Blood Urine Nitrite Urine Bilirubin Urine Urobilinogen Ur Leukocyte Esterase Urine RBC Urine WBC Ur Squamous Epith Cells Urine Bacteria Ur Microscopic Review Urine Culture Comments Nasal Adenovirus (PCR) Nasal B. parapertussis DNA (PCR) Nasal Coronavir 229E PCR Nasal Coronavir HKU1 PCR Nasal Coronavir NL63 PCR Nasal Coronavir OC43 PCR Nasal Enterovir/Rhinovir PCR Nasal Influenza B PCR Nasal Influenza A PCR Nasal Parainfluen 1 PCR Nasal Parainfluen 2 PCR Nasal Parainfluen 3 PCR Nasal Parainfluen 4 PCR Nasal RSV (PCR) Nasal B.pertussis DNA PCR Nasal C.pneumoniae (PCR) Gregory Human Metapneumo PCR Nasal M.pneumoniae (PCR) Nasal SARS-CoV-2 (PCR) Ethyl Alcohol Blood Type Cancelled A POSITIVE Antibody Screen Cancelled NEGATIVE Crossmatch IS Only See Detail See Detail 05/24/21 05/24/21 05/24/21 14:20 14:26 21:28 WBC 10.9 H RBC 2.43 L Hgb 6.4 L* Hct 19.4 L* MCV 79.8 L MCH 26.3 L MCHC 33.0 RDW 20.1 H Plt Count 163 MPV 10.0 Neut # (Auto) Lymph # (Auto) [place] # (Auto) Eos # (Auto) Baso # (Auto) Absolute Nucleated RBC Nucleated RBC % PT INR APTT Sodium Potassium Chloride Carbon Dioxide Anion Gap BUN Creatinine Estimated GFR (MDRD) Glucose Calcium Total Bilirubin AST ALT Alkaline Phosphatase Ammonia Total Protein Albumin Globulin Albumin/Globulin Ratio Lipase Urine Color YELLOW Urine Clarity CLOUDY Urine pH 5.5 Ur Specific [place] 1.020 Urine Protein TRACE Urine Glucose (UA) NEGATIVE Urine Ketones NEGATIVE Urine Occult Blood MODERATE H Urine Nitrite NEGATIVE Urine Bilirubin NEGATIVE Urine Urobilinogen 0.2 (NORMAL) Ur Leukocyte Esterase MODERATE H Urine RBC 6-10 H Urine WBC >25 H Ur Squamous Epith Cells RARE Squamous Urine Bacteria Many H Ur Microscopic Review INDICATED Urine Culture Comments INDICATED Nasal Adenovirus (PCR) NOT DETECTED Nasal B. parapertussis DNA (PCR) NOT DETECTED Nasal Coronavir 229E PCR NOT DETECTED Nasal Coronavir HKU1 PCR NOT DETECTED Nasal Coronavir NL63 PCR NOT DETECTED Nasal Coronavir OC43 PCR NOT DETECTED Nasal Enterovir/Rhinovir PCR NOT DETECTED Nasal Influenza B PCR NOT DETECTED Nasal Influenza A PCR NOT DETECTED Nasal Parainfluen 1 PCR NOT DETECTED Nasal Parainfluen 2 PCR NOT DETECTED Nasal Parainfluen 3 PCR NOT DETECTED Nasal Parainfluen 4 PCR NOT DETECTED Nasal RSV (PCR) NOT DETECTED Nasal B.pertussis DNA PCR NOT DETECTED Nasal C.pneumoniae (PCR) NOT DETECTED Gregory Human Metapneumo PCR NOT DETECTED Nasal M.pneumoniae (PCR) NOT DETECTED Nasal SARS-CoV-2 (PCR) NOT DETECTED Ethyl Alcohol Blood Type Antibody Screen Crossmatch IS Only PD MEDICAL DECISION MAKING - ED course Complexity details: reviewed old records, reviewed results, re-evaluated patient, considered differential, d/w patient, d/w solutions architect consultant ED course: Patient today states that he wants to be full code and would want endoscopy and variceal banding if possible. I attempted to contact his daughter Heide several times, the phone calls are not going through. This was between 240 and 3 PM. We will start blood transfusion. Given octreotide bolus and drip, protonix, rocephin, pRBC and FFP. Attempted to contact his daughter, Heide, again at 1545, this time a voice message answered and voicemail with call back information was left for Heide. Call back received from [facility], Dr. Sal at 1615, accepts in transfer. ICU at [facility] contacted and will call us when a bed is available. We are continuing to search for other available beds as well. 2100 - Still no beds available. Recontacted all surrounding hospitals as well as the [place] call control center. We will continue searching for a bed. The patient is currently hemodynamic stable and has not had any further vomiting here. Patient will be signed out to the [facility] emergency department physician, Dr. Castillo for further care. Patient is improving after 3 units of blood and a unit of FFP. Discussed the c ase with the [facility] transfer center who will also look for a bed. [facility] in [place], [facility] in [place], [facility] in [place] were all recontacted. Hemoglobin is up to 6.4. Vital signs are stable. Mentation improving. Another unit of blood was ordered. - Critical Care Time(min): 90 Time Includes: Direct patient care, Review records, Reassess patient, Document care, Coordinate care, See progress note Data interpretation: See progress note Procedures included in critical care time: See progress note Procedures excluded from critical care time: See progress note Departure - Departure Disposition: 02 Transfer Acute Care Hosp Clinical Impression: Esophageal bleeding, Alcohol abuse, Severe anemia Liver failure Qualifiers: Liver failure chronicity: chronic Hepatic coma status: without hepatic coma Qualified Code(s): K72.10 - Chronic hepatic failure without coma Condition: Poor
[2021-05-24 14:31] LABS: BASOPHILS % (AUTO) 0.2 %; EOSINOPHILS % (AUTO) 0.2 %; LYMPHOCYTES # (AUTO) 1.4 10^3/uL (1.5-3.5); LYMPHOCYTES % (AUTO) 12.5 %; MEAN CORPUSCULAR HEMOGLOBIN 20.6 pg (27.0-31.0); MEAN CORPUSCULAR HGB CONC 29.3 g/dL (32.0-36.0); MEAN CORPUSCULAR VOLUME 70.2 fL (80.0-94.0); MEAN PLATELET VOLUME 10.1 fL (7.4-11.4); MONOCYTES # (AUTO) 1.5 10^3/uL (0.0-1.0); MONOCYTES % (AUTO) 13.3 %; NEUTROPHILS % (AUTO) 73.3 %; NRBC ABSOLUTE COUNT (AUTO) 0.06 x10^3/uL; NUCLEATED RED BLOOD CELLS AUTO 0.5 /100WBC; PLT - PLATELET COUNT 241 10^3/uL (130-450); RED BLOOD COUNT 1.41 10^6/uL (4.70-6.10); WHITE BLOOD COUNT 10.9 x10^3/uL (4.8-10.8)
[2021-05-24 14:33] LABS: INR 1.6 (0.8-1.2); PT - PROTHROMBIN TIME 18.4 secs (9.9-12.6)
[2021-05-24 14:37] LABS: HGB - HEMOGLOBIN 2.9 g/dL (14.0-18.0)
[2021-05-24 14:38] LABS: HCT - HEMATOCRIT 9.9 % (42.0-52.0)
[2021-05-24 14:39] LABS: ALBUMIN 2.2 g/dL (3.2-5.5); ALBUMIN/GLOBULIN RATIO 0.9 (1.0-2.2); ALKALINE PHOSPHATASE 104 IU/L (42-121); ALT ALANINE AMINOTRANSFERASE 19 IU/L (10-60); AST ASPARTATE AMINOTRANSFERASE 31 IU/L (10-42); BILIRUBIN,TOTAL 1.6 mg/dL (0.2-1.0); BUN - BLOOD UREA NITROGEN 40 mg/dL (6-20); CALCIUM 8.5 mg/dL (8.5-10.3); CARBON DIOXIDE - CO2 23 mmol/L (21-32); CHLORIDE 102 mmol/L (101-111); CREATININE 1.4 mg/dL (0.6-1.2); ETOH - ETHANOL < 5.0 mg/dL; GFR - MDRD 50 (>89); GLUCOSE 106 mg/dL (70-100); LIPASE 43 U/L (22-51); POTASSIUM 3.9 mmol/L (3.5-5.0); SODIUM 136 mmol/L (135-145); TOTAL PROTEIN 4.7 g/dL (6.7-8.2)
[2021-05-24 14:40] LABS: PARTIAL THROMBOPLASTIN TIME 26.5 secs (24.9-33.3)
[2021-05-24 14:44] LABS: BILIRUBIN,URINE NEGATIVE (NEGATIVE); GLUCOSE, URINE (UA) NEGATIVE (NEGATIVE); KETONES,URINE (UA) NEGATIVE (NEGATIVE); LEUKOCYTE ESTERASE, URINE MODERATE (NEGATIVE); NITRITE,URINE NEGATIVE (NEGATIVE); OCCULT BLOOD,URINE MODERATE (NEGATIVE); PH,URINE 5.5 PH (5.0-7.5); PROTEIN,URINE TRACE mg/dL (NEGATIVE); UROBILINOGEN,URINE 0.2 (NORMAL) E.U./dL (NORMAL)
[2021-05-24 14:48] LABS: CLARITY,URINE CLOUDY (CLEAR)
[2021-05-24 15:04] LABS: BACTERIA,URINE Many /HPF (None Seen); SQUAMOUS EPITHELIAL CELL,UR RARE Squamous (<= Few); WBC,URINE >25 /HPF (0-3)
[2021-05-24 15:54] LABS: B. PARAPERTUSSIS- RESP PCR PAN NOT DETECTED; B. PERTUSSIS- RESP PCR PANEL NOT DETECTED; C. PNEUMONIAE- RESP PCR PANEL NOT DETECTED; CORONAVIRUS 229E-RESP PCR NOT DETECTED; CORONAVIRUS HKU1-RESP PCR NOT DETECTED; CORONAVIRUS NL63-RESP PCR NOT DETECTED; CORONAVIRUS OC43-RESP PCR NOT DETECTED; HUMAN METAPNEUMOVIRUS NOT DETECTED; INFLUENZA A- RESP PCR PANEL NOT DETECTED; INFLUENZA B - RESP PCR PANEL NOT DETECTED; M. PNEUMONIAE- RESP PCR PANEL NOT DETECTED; PARAINFLUENZA VIRUS 1 NOT DETECTED; PARAINFLUENZA VIRUS 2 NOT DETECTED; PARAINFLUENZA VIRUS 3 NOT DETECTED; PARAINFLUENZA VIRUS 4 NOT DETECTED; RHINOVIRUS/ENTEROVIRUS NOT DETECTED; RSV- RESP PCR PANEL NOT DETECTED; SARS-CoV-2 -RESP PCR PANEL NOT DETECTED
[2021-05-24 21:33] LABS: BASOPHILS % (AUTO) 0.5 %; EOSINOPHILS % (AUTO) 1.2 %; LYMPHOCYTES % (AUTO) 10.8 %; MEAN CORPUSCULAR HEMOGLOBIN 26.3 pg (27.0-31.0); MEAN CORPUSCULAR VOLUME 79.8 fL (80.0-94.0); PLT - PLATELET COUNT 163 10^3/uL (130-450); RED BLOOD COUNT 2.43 10^6/uL (4.70-6.10); RED CELL DISTRIBUTION WIDTH 20.1 % (12.0-15.0); WHITE BLOOD COUNT 10.9 x10^3/uL (4.8-10.8)
[2021-05-24 21:37] LABS: HCT - HEMATOCRIT 19.4 % (42.0-52.0); HGB - HEMOGLOBIN 6.4 g/dL (14.0-18.0)
[2021-05-24 21:39] LABS: ABNORMAL LYMPHS % (MANUAL) 0 %; BAND NEUTROPHILS % (MANUAL) 0 %
[2021-05-24 21:58] LABS: EOSINOPHILS # (MANUAL) 0.1 10^3/uL (0-0.7); LYMPHOCYTES # (MANUAL) 0.5 10^3/uL (1.5-3.5); LYMPHOCYTES % (MANUAL) 5 %; MONOCYTES # (MANUAL) 1.9 10^3/uL (0.0-1.0); NEUTROPHILS # (MANUAL) 8.4 10^3/uL (1.5-6.6); PLATELET ESTIMATE, MANUAL NORMAL (130-450,000) (NORMAL); PLATELET MORPHOLOGY NORMAL APPEARANCE (NORMAL)
[2021-05-24 21:59] LABS: DIFFERENTIAL COMMENT MANUAL DIFFERENTIAL
--- NOTE | 2021-05-24 22:02 | ED Physician Documentation ---
ED Addendum - Addendum Addendum: 05/24/21 22:01 patient endorsed to me by Dr. Staples. We have called all of the [facility] hospitals and have [facility] involved and have been unable to speak with any providers as of yet. 05/24/21 22:09 d/w Aurelia from transfer who connected me to Dr. Koenig from [facility] in regards to patient status. She agrees patient status is critical and requires transfer for GI evaluation but she is unable to accept given is overloaded with patients and is accepting only patients within the system at present. We will touch base with [facility] and if they overrule (given patient critical illness and our status as a critical access hospital) then can accept the patient. 05/25/21 02:08 [facility] called and requested they create a bed. Talon from transfer center may have a bed available for us at [facility]. provider will call back shortly. 05/25/21 02:51 d/w Dr. Vallejo at [facility] who accepts the patient in transfer. Disposition - transfer Condition - stable Impression 1. anemia 2. GI bleed 3. liver failure 4. alcohol abuse 05/25/21 02:53
[2021-05-25] MEDS ORDERED: diphenhydrAMINE 25 MG CAPSULE PO STA (04:46)
[2021-05-25 05:19] VITALS: BP 136/71
== END 2021-05-25 05:44 | disposition short-term general hospital (02) ==
LOC: EDUNIT# → ED 13:39
DX: K72.90 Hepatic failure, unspecified without coma (principal); K92.2 Gastrointestinal hemorrhage, unspecified; D64.9 Anemia, unspecified; F10.10 Alcohol abuse, uncomplicated; I10 Essential (primary) hypertension; Z20.822 Contact with and (suspected) exposure to COVID-19
CPT/HCPCS: 36415; 36430; 80053; 81001; 82140; 83690; 85025; 85610; 85730; 86850; 86900; 86901; 86920; 87077; 87086; 87181; 87631; 96361; 96365; 96366; 96375; 96376; 99291; 99292; A9270; G0480; J2354; P9016; P9017; 0202U; 80320; 81003

== ENCOUNTER 2021-07-14 21:41 | Outpatient (CLI) | payer MEDICARE | END 2021-07-14 21:42 | disposition critical access hospital (66) | LOC: EMS 21:41 | DX: F10.129 Alcohol abuse with intoxication, unspecified (principal); Z59.02 Unsheltered homelessness | CPT/HCPCS: A0425; A0429 ==

== ENCOUNTER 2021-07-14 22:08 | Emergency (ER) | payer MEDICARE ==
--- NOTE | 2021-07-14 23:25 | ED Physician Documentation ---
History of Present Illness - Stated complaint Stated Complaint: ETOH - Chief complaint Chief Complaint: General - History obtained from History obtained from: Patient, EMS - Additonal information Additional information: 70-year-old man with past medical history of alcoholism presents after being found inebriated in a public bathroom and refusing to leave, then requesting to go to the ED to sleep. Patient endorsing significant alcohol intake today but unable to specify what or how much. Denies hitting his head or otherwise feeling unwell. AO x3. clinically intoxicated Review of Systems Unable to obtain: Intoxicated PD PAST MEDICAL HISTORY - Past Medical History Past Medical History: Yes Cardiovascular: Hypertension Respiratory: None Neuro: Dementia Endocrine/Autoimmune: None GI: Cirrhosis : None HEENT: Chronic vision loss, Other Psych: Other Musculoskeletal: None Derm: None Other Past Medical History: Alcoholism - Past Surgical History Past Surgical History: Yes General: Other HEENT: Tonsil/Adenoidectomy - Present Medications Home Medications: Ambulatory Orders Medication Instructions Recorded Confirmed Folic Acid 1 mg PO DAILY 30 Days #30 07/31/20 03/01/21 Tamsulosin [Flomax] 0.4 mg PO DAILY #30 cap 04/05/21 Diltiazem HCl [Diltiazem 12Hr ER] 120 mg PO DAILY #30 cap 04/13/21 Ferrous Gluconate 324 mg PO DAILY #30 tablet 04/13/21 Lactulose 15 ml PO DAILY #240 ml 04/13/21 07/16/21 Pantoprazole Sodium [Protonix] 40 mg PO DAILY #30 tab 04/13/21 Propranolol [Inderal] 10 mg PO BID #60 tablet 04/13/21 Furosemide [Lasix] 80 mg PO BID 07/16/21 07/16/21 Spironolactone [Aldactone] 100 mg PO DAILY 07/16/21 07/16/21 - Allergies Allergies/Adverse Reactions: Allergies Allergy/AdvReac Type Severity Reaction Status Date / Time No Known Drug Allergies Allergy Verified 07/15/21 18:56 - Social History Does the pt smoke?: No Smoking Status: Never smoker Does the pt drink ETOH?: Yes ETOH Use: Liquor Does the pt have substance abuse?: Yes - Immunizations Immunizations are current?: Yes Immunizations: TDAP >10years/unknown - POLST Patient has POLST: No PD ED PE NORMAL - Vitals Vital signs reviewed: Yes - General General: Alert and oriented X 3, No acute distress, Other (disheveled, intoxicated) - HEENT HEENT: Atraumatic, PERRL, EOMI, Moist mucous membranes, Pharynx benign - Neck Neck: No bony TTP - Cardiac Cardiac: RRR - Respiratory Respiratory: No respiratory distress, Clear bilaterally - Abdomen Abdomen: Non tender, Non distended - Back Back: No spinal TTP - Derm Derm: Normal color, Warm and dry - Extremities Extremities: No deformity - Neuro Neuro: Alert and oriented X 3, No motor deficit, No sensory deficit - Psych Psych: Other (clinically intoxicated) Results - Vitals Vitals: Oxygen O2 Source [With Activity] Room air O2 Source Room air PD MEDICAL DECISION MAKING - ED course ED course: 70yM presents with acute alcohol intoxication, otherwise asymptomatic. will monitor for sobriety and dc home when clinically sober. Disposition: home Departure - Departure Disposition: 01 Home, Self Care Clinical Impression: Alcohol abuse Condition: Stable Instructions: Alcoholism Comments: You were seen in the emergency department for acute alcohol intoxication. Please follow-up with your local alcoholics anonymous. Return to the emergency department if you have other concerns. Discharge Date/Time: 07/15/21 11:03
--- NOTE | 2021-07-15 07:08 | ED Physician Documentation ---
ED Addendum - Addendum Addendum: Patient received in signout from off going physician, please see their documentation for further detail. Patient received in signout pending clinical sobriety. Monitored in my emergency department for several hours. Reevaluated on multiple occasions and found to be resting comfortably and in no acute distress. Patient ultimately awoke, and requested discharge from the emergency department. He was able to walk, tolerate p.o. intake and no longer had clinical indications of intoxication. He was encouraged to follow-up with alcoholics anonymous. Additionally he was encouraged to follow-up with his primary care doctor or return to the emergency department for new or worsening symptoms. 07/15/21 16:10
[2021-07-15 09:30] VITALS: BP 134/74
== END 2021-07-15 11:03 | disposition home or self-care (01) ==
LOC: EDUNIT# → ED 22:08
DX: F10.129 Alcohol abuse with intoxication, unspecified (principal); I10 Essential (primary) hypertension
CPT/HCPCS: 99281; 99283

== ENCOUNTER 2021-07-15 18:44 | Emergency (ER) | payer MEDICARE ==
[2021-07-15] MEDS ORDERED: THIAMINE 100 MG TABLET PO STA (19:07)
--- NOTE | 2021-07-15 19:09 | ED Physician Documentation ---
History of Present Illness - Stated complaint Stated Complaint: WEAK - Chief complaint Chief Complaint: General - History obtained from History obtained from: Patient - Additonal information Additional information: 70-year-old gentleman with history of alcoholism and liver disease brought in by Sheriff alejandro for drinking. It is hard to elicit a significant chief complaints for him. He says he is weak and he has spots all over his arms. During the H&P he lowers his pants and start urinating into a urinal. Review of Systems Unable to obtain: Intoxicated PD PAST MEDICAL HISTORY - Past Medical History Cardiovascular: Hypertension Respiratory: None Neuro: Dementia Endocrine/Autoimmune: None GI: Cirrhosis : None HEENT: Chronic vision loss, Other Psych: Other Musculoskeletal: None Derm: None - Past Surgical History Past Surgical History: Yes General: Other HEENT: Tonsil/Adenoidectomy - Present Medications Home Medications: Ambulatory Orders Medication Instructions Recorded Confirmed Folic Acid 1 mg PO DAILY 30 Days #30 07/31/20 03/01/21 Furosemide [Lasix] 20 mg PO DAILY 07/31/20 03/01/21 Pantoprazole [Protonix] 40 mg PO DAILY #30 07/31/20 03/01/21 Propranolol [Inderal] 10 mg PO BID 07/31/20 03/01/21 Spironolactone [Aldactone] 25 mg PO DAILY 07/31/20 03/01/21 Ferrous Gluconate [Fergon] 324 mg PO DAILYWM #30 tablet 04/05/21 Lactulose 15 ml PO DAILY #30 bottle 04/05/21 Tamsulosin [Flomax] 0.4 mg PO DAILY #30 cap 04/05/21 diltiaZEM CD [Cardizem Cd] 120 mg PO DAILY #30 cap 04/05/21 Diltiazem HCl [Diltiazem 12Hr ER] 120 mg PO DAILY #30 cap 04/13/21 Ferrous Gluconate 324 mg PO DAILY #30 tablet 04/13/21 Furosemide [Lasix] 20 mg PO DAILY #30 tablet 04/13/21 Lactulose 15 ml PO DAILY #240 ml 04/13/21 Multivit with Calcium,Iron,Min 1 each PO DAILY #30 tablet 04/13/21 [One Daily Women's] Pantoprazole Sodium [Protonix] 40 mg PO DAILY #30 tab 04/13/21 Propranolol [Inderal] 10 mg PO BID #60 tablet 04/13/21 Spironolactone [Aldactone] 25 mg PO DAILY #30 tablet 04/13/21 Tamsulosin HCl [Flomax] 0.4 mg PO DAILY #30 cap 04/13/21 Thiamine HCl [Vitamin B-1] 100 mg PO DAILY #30 tablet 04/13/21 Sulfamethox/Trimeth 800/160 1 each PO BID #14 tablet 05/01/21 [Bactrim Ds 800/160] - Allergies Allergies/Adverse Reactions: Allergies Allergy/AdvReac Type Severity Reaction Status Date / Time No Known Drug Allergies Allergy Verified 07/15/21 18:56 - Social History Does the pt smoke?: No Smoking Status: Never smoker Does the pt drink ETOH?: Yes Does the pt have substance abuse?: Yes - Immunizations Immunizations are current?: Yes Immunizations: TDAP >10years/unknown - POLST Patient has POLST: No PD ED PE NORMAL - Vitals Vital signs reviewed: Yes - General General: Other (He is alert and oriented to person and place but not events, slow slurred speech and smells of alcohol) - HEENT HEENT: PERRL, EOMI (With nystagmus) - Neck Neck: Supple, no meningeal sign, No bony TTP - Cardiac Cardiac: RRR, No murmur - Respiratory Respiratory: No respiratory distress, Clear bilaterally - Abdomen Abdomen: Normal bowel sounds, Soft, Non tender, Other (palp liver) - Derm Derm: Normal color, Warm and dry, Other (Some skin tears in varied states of healing to both upper extremities and liver spots on the upper extremities) - Neuro Eye Opening: Spontaneous Motor: Obeys Commands Verbal: Confused GCS Score: 14 Results - Vitals Vitals: Vital Signs - 24 hr 07/15/21 07/15/21 07/15/21 18:48 18:55 21:17 Temperature 36.3 C L 36.5 C Heart Rate 105 H 105 H 103 H Respiratory 16 16 20 Rate Blood Pressure 147/67 H 147/67 H 140/74 H O2 Saturation 100 100 95 Oxygen O2 Source [With Activity] Room air O2 Source Room air - Labs Labs: Laboratory Tests 07/15/21 07/15/21 07/15/21 19:18 19:18 19:18 WBC 5.3 RBC 3.59 L Hgb 9.5 L Hct 30.7 L MCV 85.5 MCH 26.5 L MCHC 30.9 L RDW 20.4 H Plt Count 121 L MPV TNP Neut # (Auto) 3.6 Lymph # (Auto) 0.8 L Ward # (Auto) 0.5 Eos # (Auto) 0.3 Baso # (Auto) 0.1 Absolute Nucleated RBC 0.00 Nucleated RBC % 0.0 Manual Slide Review Indicated Platelet Estimate DECREASED (<130,000) Platelet Morphology NORMAL APPEARANCE RBC Morph Micro Appear 1+ OVALOCYTES Sodium 142 Potassium 3.7 Chloride 107 Carbon Dioxide 24 Anion Gap 11.0 BUN 30 H Creatinine 1.1 Estimated GFR (MDRD) 66 L Glucose 97 Calcium 9.2 Total Bilirubin 1.5 H AST 56 H ALT 21 Alkaline Phosphatase 120 Total Protein 7.0 Albumin 3.5 Globulin 3.5 Albumin/Globulin Ratio 1.0 Lipase 43 TSH 4.11 Urine Color Urine Clarity Urine pH Ur Specific [place] Urine Protein Urine Glucose (UA) Urine Ketones Urine Occult Blood Urine Nitrite Urine Bilirubin Urine Urobilinogen Ur Leukocyte Esterase Urine RBC Urine WBC Ur Squamous Epith Cells Urine Bacteria Ur Microscopic Review Urine Culture Comments Nasal Adenovirus (PCR) Nasal B. parapertussis DNA (PCR) Nasal Coronavir 229E PCR Nasal Coronavir HKU1 PCR Nasal Coronavir NL63 PCR Nasal Coronavir OC43 PCR Nasal Enterovir/Rhinovir PCR Nasal Influenza B PCR Nasal Influenza A PCR Nasal Parainfluen 1 PCR Nasal Parainfluen 2 PCR Nasal Parainfluen 3 PCR Nasal Parainfluen 4 PCR Nasal RSV (PCR) Nasal B.pertussis DNA PCR Nasal C.pneumoniae (PCR) Gregory Human Metapneumo PCR Nasal M.pneumoniae (PCR) Nasal SARS-CoV-2 (PCR) Salicylates < 6.0 Urine Opiates Screen Ur Oxycodone Screen Urine Methadone Screen Ur Propoxyphene Screen Acetaminophen < 10 L Ur Barbiturates Screen Ur Tricyclics Screen Ur Phencyclidine Scrn Ur Amphetamine Screen U Methamphetamines Scrn U Benzodiazepines Scrn Urine Cocaine Screen U Cannabinoids Screen Ethyl Alcohol 192.7 07/15/21 07/15/21 19:53 19:53 WBC RBC Hgb Hct MCV MCH MCHC RDW Plt Count MPV Neut # (Auto) Lymph # (Auto) Ward # (Auto) Eos # (Auto) Baso # (Auto) Absolute Nucleated RBC Nucleated RBC % Manual Slide Review Platelet Estimate Platelet Morphology RBC Morph Micro Appear Sodium Potassium Chloride Carbon Dioxide Anion Gap BUN Creatinine Estimated GFR (MDRD) Glucose Calcium Total Bilirubin AST ALT Alkaline Phosphatase Total Protein Albumin Globulin Albumin/Globulin Ratio Lipase TSH Urine Color YELLOW Urine Clarity CLEAR Urine pH 6.0 Ur Specific [place] 1.010 Urine Protein NEGATIVE Urine Glucose (UA) NEGATIVE Urine Ketones NEGATIVE Urine Occult Blood SMALL H Urine Nitrite NEGATIVE Urine Bilirubin NEGATIVE Urine Urobilinogen 0.2 (NORMAL) Ur Leukocyte Esterase NEGATIVE Urine RBC 6-10 H Urine WBC 0-3 Ur Squamous Epith Cells RARE Squamous Urine Bacteria None Seen Ur Microscopic Review INDICATED Urine Culture Comments NOT INDICATED Nasal Adenovirus (PCR) NOT DETECTED Nasal B. parapertussis DNA (PCR) NOT DETECTED Nasal Coronavir 229E PCR NOT DETECTED Nasal Coronavir HKU1 PCR NOT DETECTED Nasal Coronavir NL63 PCR NOT DETECTED Nasal Coronavir OC43 PCR NOT DETECTED Nasal Enterovir/Rhinovir PCR NOT DETECTED Nasal Influenza B PCR NOT DETECTED Nasal Influenza A PCR NOT DETECTED Nasal Parainfluen 1 PCR NOT DETECTED Nasal Parainfluen 2 PCR NOT DETECTED Nasal Parainfluen 3 PCR NOT DETECTED Nasal Parainfluen 4 PCR NOT DETECTED Nasal RSV (PCR) NOT DETECTED Nasal B.pertussis DNA PCR NOT DETECTED Nasal C.pneumoniae (PCR) NOT DETECTED Gregory Human Metapneumo PCR NOT DETECTED Nasal M.pneumoniae (PCR) NOT DETECTED Nasal SARS-CoV-2 (PCR) NOT DETECTED Salicylates Urine Opiates Screen NEGATIVE Ur Oxycodone Screen NEGATIVE Urine Methadone Screen NEGATIVE Ur Propoxyphene Screen NEGATIVE Acetaminophen Ur Barbiturates Screen NEGATIVE Ur Tricyclics Screen NEGATIVE Ur Phencyclidine Scrn NEGATIVE Ur Amphetamine Screen NEGATIVE U Methamphetamines Scrn NEGATIVE U Benzodiazepines Scrn NEGATIVE Urine Cocaine Screen NEGATIVE U Cannabinoids Screen NEGATIVE Ethyl Alcohol PD MEDICAL DECISION MAKING - ED course ED course: 70yo male "bounces back" with EtOH abuse and is seen at bedside. His goal tonight is unclear and will board in ED pending sobriety. Care to O/N ED mD . Departure - Departure Clinical Impression: Alcohol abuse Condition: Stable Record reviewed to determine appropriate education?: Yes
[2021-07-15] MEDS ORDERED: PRENATAL VITAMIN TABLET PO STA (19:10)
[2021-07-15 19:24] LABS: BASOPHILS # (AUTO) 0.1 10^3/uL (0.0-0.1); BASOPHILS % (AUTO) 1.1 %; EOSINOPHILS # (AUTO) 0.3 10^3/uL (0.0-0.7); EOSINOPHILS % (AUTO) 5.9 %; HCT - HEMATOCRIT 30.7 % (42.0-52.0); HGB - HEMOGLOBIN 9.5 g/dL (14.0-18.0); LYMPHOCYTES # (AUTO) 0.8 10^3/uL (1.5-3.5); LYMPHOCYTES % (AUTO) 15.7 %; MEAN CORPUSCULAR HEMOGLOBIN 26.5 pg (27.0-31.0); MEAN CORPUSCULAR HGB CONC 30.9 g/dL (32.0-36.0); MEAN CORPUSCULAR VOLUME 85.5 fL (80.0-94.0); MONOCYTES # (AUTO) 0.5 10^3/uL (0.0-1.0); MONOCYTES % (AUTO) 9.5 %; NEUTROPHILS # (AUTO) 3.6 10^3/uL (1.5-6.6); NEUTROPHILS % (AUTO) 67.6 %; PLT - PLATELET COUNT 121 10^3/uL (130-450); RED BLOOD COUNT 3.59 10^6/uL (4.70-6.10); RED CELL DISTRIBUTION WIDTH 20.4 % (12.0-15.0); WHITE BLOOD COUNT 5.3 x10^3/uL (4.8-10.8)
[2021-07-15 19:38] LABS: SLIDE REVIEW? Indicated
[2021-07-15 19:40] LABS: ACETAMINOPHEN < 10 ug/mL (10-30); ALBUMIN 3.5 g/dL (3.2-5.5); ALKALINE PHOSPHATASE 120 IU/L (42-121); ALT ALANINE AMINOTRANSFERASE 21 IU/L (10-60); AST ASPARTATE AMINOTRANSFERASE 56 IU/L (10-42); BILIRUBIN,TOTAL 1.5 mg/dL (0.2-1.0); BUN - BLOOD UREA NITROGEN 30 mg/dL (6-20); CALCIUM 9.2 mg/dL (8.5-10.3); CARBON DIOXIDE - CO2 24 mmol/L (21-32); CHLORIDE 107 mmol/L (101-111); CREATININE 1.1 mg/dL (0.6-1.2); ETOH - ETHANOL 192.7 mg/dL; GFR - MDRD 66 (>89); GLUCOSE 97 mg/dL (70-100); LIPASE 43 U/L (22-51); POTASSIUM 3.7 mmol/L (3.5-5.0); SALICYLATE < 6.0 mg/dL; SODIUM 142 mmol/L (135-145)
[2021-07-15 19:57] LABS: PLATELET ESTIMATE, MANUAL DECREASED (<130,000) (NORMAL); PLATELET MORPHOLOGY NORMAL APPEARANCE (NORMAL)
[2021-07-15 20:03] LABS: BILIRUBIN,URINE NEGATIVE (NEGATIVE); GLUCOSE, URINE (UA) NEGATIVE (NEGATIVE); KETONES,URINE (UA) NEGATIVE (NEGATIVE); LEUKOCYTE ESTERASE, URINE NEGATIVE (NEGATIVE); MUDS CUTOFF CONCENTRATIONS CUTOFF CONC BELOW:; NITRITE,URINE NEGATIVE (NEGATIVE); OCCULT BLOOD,URINE SMALL (NEGATIVE); PROTEIN,URINE NEGATIVE (NEGATIVE); UROBILINOGEN,URINE 0.2 (NORMAL) E.U./dL (NORMAL)
[2021-07-15 20:07] LABS: CLARITY,URINE CLEAR (CLEAR)
[2021-07-15 20:13] LABS: BACTERIA,URINE None Seen /HPF (None Seen); SQUAMOUS EPITHELIAL CELL,UR RARE Squamous (<= Few); WBC,URINE 0-3 /HPF (0-3)
[2021-07-15 20:14] LABS: AMPHETAMINE SCREEN,URINE NEGATIVE (NEGATIVE); BARBITURATE SCREEN,UR NEGATIVE (NEGATIVE); BENZODIAZEPINES SCREEN, URINE NEGATIVE (NEGATIVE); COCAINE SCREEN URINE NEGATIVE (NEGATIVE); METHADONE SCREEN, URINE NEGATIVE (NEGATIVE); METHAMPHETAMINES SCREEN, URINE NEGATIVE (NEGATIVE); OPIATE SCREEN, URINE NEGATIVE (NEGATIVE); OXYCODONE SCREEN, URINE NEGATIVE (NEGATIVE); PROPOXYPHENE SCREEN, URINE NEGATIVE (NEGATIVE); THC CANNABINOID SCREEN, URINE NEGATIVE (NEGATIVE); TRICYCLIC ANTIDEPRESSANT,URINE NEGATIVE (NEGATIVE)
[2021-07-15 21:00] LABS: B. PARAPERTUSSIS- RESP PCR PAN NOT DETECTED; B. PERTUSSIS- RESP PCR PANEL NOT DETECTED; C. PNEUMONIAE- RESP PCR PANEL NOT DETECTED; CORONAVIRUS 229E-RESP PCR NOT DETECTED; CORONAVIRUS HKU1-RESP PCR NOT DETECTED; CORONAVIRUS NL63-RESP PCR NOT DETECTED; CORONAVIRUS OC43-RESP PCR NOT DETECTED; HUMAN METAPNEUMOVIRUS NOT DETECTED; INFLUENZA A- RESP PCR PANEL NOT DETECTED; INFLUENZA B - RESP PCR PANEL NOT DETECTED; M. PNEUMONIAE- RESP PCR PANEL NOT DETECTED; PARAINFLUENZA VIRUS 1 NOT DETECTED; PARAINFLUENZA VIRUS 2 NOT DETECTED; PARAINFLUENZA VIRUS 3 NOT DETECTED; PARAINFLUENZA VIRUS 4 NOT DETECTED; RHINOVIRUS/ENTEROVIRUS NOT DETECTED; RSV- RESP PCR PANEL NOT DETECTED; SARS-CoV-2 -RESP PCR PANEL NOT DETECTED
[2021-07-16] MEDS ORDERED: PRENATAL VITAMIN TABLET PO SCH (08:00)
--- NOTE | 2021-07-16 13:22 | ED Physician Documentation ---
ED Addendum - Addendum Addendum: 07/16/21 13:21The patient had been intoxicated last night. He is doing okay this morning with improved alcohol level. Is awake and conversant and oriented. He is cooperative. He is stating he is done with alcohol and would like treatment for it. He denies any withdrawal symptoms currently. We will be watching for impending symptoms as I would anticipate him having some withdrawal develop. Otherwise social work is looking for placement for him for his treatment of his alcoholism. Again he is awake and conversant and oriented at this time.
--- NOTE | 2021-07-16 18:32 | ED Physician Documentation ---
ED Addendum - Addendum Addendum: 07/16/21 18:29 The patient remains alert conversant and feeling well. He denies any shakiness or nausea at this time. However he does have a long history of alcohol use with recent and I would anticipate some withdrawal symptoms. I think we could preemptively give a low-dose of withdrawal medication such as lorazepam or Librium so that he does not go into withdrawal. The [facility] is able to accept him. They are not able to receive him until tomorrow morning so he will board overnight here in our ER and will work on getting him there tomorrow morning.
[2021-07-16] MEDS: THIAMINE 100 MG TABLET PO SCH ×2 (19:54→21:05)
[2021-07-16] MEDS: chlordiazePOXIDE 25 MG CAPSULE PO SCH ×3 (19:54→21:04)
[2021-07-16] MEDS ORDERED: LORazepam 1 MG TABLET PO PRN (20:00)
[2021-07-17] MEDS: chlordiazePOXIDE 25 MG CAPSULE PO SCH (08:07)
[2021-07-17] MEDS: THIAMINE 100 MG TABLET PO SCH (08:08)
[2021-07-17 13:53] VITALS: BP 130/64
== END 2021-07-17 14:37 | disposition home or self-care (01) ==
LOC: ED 18:44
DX: F10.129 Alcohol abuse with intoxication, unspecified (principal); Y90.6 Blood alcohol level of 120-199 mg/100 ml; I10 Essential (primary) hypertension; Z20.822 Contact with and (suspected) exposure to COVID-19
CPT/HCPCS: 36415; 80053; 80306; 80307; 81001; 83690; 84443; 85025; 87631; 99281; 99283; A9270; G0480; J8499; 0202U; 80320; 80329; 81003; 87086

== ENCOUNTER 2021-08-01 10:27 | Outpatient (CLI) | payer MEDICARE | END 2021-08-01 10:28 | disposition critical access hospital (66) | LOC: EMS 10:27 | DX: R53.1 Weakness (principal); R32 Unspecified urinary incontinence | CPT/HCPCS: A0425; A0429 ==

== ENCOUNTER 2021-08-01 10:51 | Emergency (ER) | payer MEDICARE ==
[2021-08-01 11:56] LABS: BASOPHILS % (AUTO) 0.8 %; EOSINOPHILS # (AUTO) 0.1 10^3/uL (0.0-0.7); EOSINOPHILS % (AUTO) 2.7 %; HCT - HEMATOCRIT 27.4 % (42.0-52.0); HGB - HEMOGLOBIN 8.6 g/dL (14.0-18.0); LYMPHOCYTES # (AUTO) 0.4 10^3/uL (1.5-3.5); LYMPHOCYTES % (AUTO) 16.5 %; MEAN CORPUSCULAR HEMOGLOBIN 27.9 pg (27.0-31.0); MEAN CORPUSCULAR HGB CONC 31.4 g/dL (32.0-36.0); MEAN PLATELET VOLUME 10.5 fL (7.4-11.4); MONOCYTES # (AUTO) 0.4 10^3/uL (0.0-1.0); MONOCYTES % (AUTO) 16.5 %; NEUTROPHILS # (AUTO) 1.6 10^3/uL (1.5-6.6); NEUTROPHILS % (AUTO) 63.1 %; PLT - PLATELET COUNT 84 10^3/uL (130-450); RED BLOOD COUNT 3.08 10^6/uL (4.70-6.10); RED CELL DISTRIBUTION WIDTH 22.2 % (12.0-15.0); WHITE BLOOD COUNT 2.6 x10^3/uL (4.8-10.8)
[2021-08-01 11:57] LABS: SLIDE REVIEW? Indicated
[2021-08-01 12:00] LABS: MUDS CUTOFF CONCENTRATIONS CUTOFF CONC BELOW:
[2021-08-01 12:18] LABS: RBC MORPHOLOGY (MULTIPLE) 4+ ANISOCYTOSIS (NORMAL)
[2021-08-01 12:21] LABS: ACETAMINOPHEN < 10 ug/mL (10-30); ALBUMIN 3.1 g/dL (3.2-5.5); ALBUMIN/GLOBULIN RATIO 1.1 (1.0-2.2); ALKALINE PHOSPHATASE 160 IU/L (42-121); ALT ALANINE AMINOTRANSFERASE 18 IU/L (10-60); AST ASPARTATE AMINOTRANSFERASE 33 IU/L (10-42); BILIRUBIN,TOTAL 1.7 mg/dL (0.2-1.0); BUN - BLOOD UREA NITROGEN 15 mg/dL (6-20); CALCIUM 8.5 mg/dL (8.5-10.3); CARBON DIOXIDE - CO2 20 mmol/L (21-32); CHLORIDE 106 mmol/L (101-111); CREATININE 0.9 mg/dL (0.6-1.2); ETOH - ETHANOL < 5.0 mg/dL; GFR - MDRD 83 (>89); GLUCOSE 98 mg/dL (70-100); LIPASE 42 U/L (22-51); POTASSIUM 2.9 mmol/L (3.5-5.0); SALICYLATE < 6.0 mg/dL; SODIUM 138 mmol/L (135-145); TOTAL PROTEIN 5.9 g/dL (6.7-8.2)
[2021-08-01 12:39] LABS: BILIRUBIN,URINE NEGATIVE (NEGATIVE); GLUCOSE, URINE (UA) NEGATIVE (NEGATIVE); KETONES,URINE (UA) NEGATIVE (NEGATIVE); LEUKOCYTE ESTERASE, URINE NEGATIVE (NEGATIVE); NITRITE,URINE NEGATIVE (NEGATIVE); OCCULT BLOOD,URINE MODERATE (NEGATIVE); PROTEIN,URINE NEGATIVE (NEGATIVE); UROBILINOGEN,URINE 0.2 (NORMAL) E.U./dL (NORMAL)
[2021-08-01 12:41] LABS: CLARITY,URINE CLEAR (CLEAR)
[2021-08-01 12:50] LABS: AMPHETAMINE SCREEN,URINE NEGATIVE (NEGATIVE); BACTERIA,URINE Few /HPF (None Seen); BARBITURATE SCREEN,UR NEGATIVE (NEGATIVE); COCAINE SCREEN URINE NEGATIVE (NEGATIVE); METHADONE SCREEN, URINE NEGATIVE (NEGATIVE); METHAMPHETAMINES SCREEN, URINE NEGATIVE (NEGATIVE); OPIATE SCREEN, URINE NEGATIVE (NEGATIVE); OXYCODONE SCREEN, URINE NEGATIVE (NEGATIVE); PROPOXYPHENE SCREEN, URINE NEGATIVE (NEGATIVE); SQUAMOUS EPITHELIAL CELL,UR FEW Squamous (<= Few); THC CANNABINOID SCREEN, URINE NEGATIVE (NEGATIVE); TRICYCLIC ANTIDEPRESSANT,URINE NEGATIVE (NEGATIVE); WBC,URINE 0-3 /HPF (0-3)
[2021-08-01 12:51] LABS: BENZODIAZEPINES SCREEN, URINE POSITIVE (NEGATIVE)
--- NOTE | 2021-08-01 13:24 | ED Physician Documentation ---
History of Present Illness - Stated complaint Stated Complaint: WEAKNESS - Chief complaint Chief Complaint: Neuro - History obtained from History obtained from: Patient, EMS - History of Present Illness Timing: Today Pain level max: 0 Pain level now: 0 - Additonal information Additional information: Patient is a 70-year-old male who states that he has been urinating more than usual this morning and had difficulty standing earlier. He states someone else called 911 for him. He states he has no complaints here. He states he feels normal. Denies any focal neurological deficits. Nothing makes it better or worse Review of Systems Constitutional: denies: Fever, Chills GI: denies: Vomiting, Diarrhea Skin: denies: Rash Musculoskeletal: denies: Neck pain, Back pain Neurologic: denies: Headache PD PAST MEDICAL HISTORY - Past Medical History Past Medical History: Yes Cardiovascular: Hypertension, High cholesterol, Coronary artery disease Respiratory: Sleep apnea Neuro: Dementia, Tremors, Other Endocrine/Autoimmune: None GI: GERD, Ulcers, Pancreatitis, Hepatitis, Cirrhosis : Incontinence HEENT: Chronic vision loss, Other Psych: Other Musculoskeletal: None Derm: None Other Past Medical History: Substance Use Disorder, Alcoholism - Past Surgical History Past Surgical History: Yes General: Other HEENT: Tonsil/Adenoidectomy - Present Medications Home Medications: Ambulatory Orders Medication Instructions Recorded Confirmed Folic Acid 1 mg PO DAILY 30 Days #30 07/31/20 03/01/21 Tamsulosin [Flomax] 0.4 mg PO DAILY #30 cap 04/05/21 Diltiazem HCl [Diltiazem 12Hr ER] 120 mg PO DAILY #30 cap 04/13/21 Ferrous Gluconate 324 mg PO DAILY #30 tablet 04/13/21 Lactulose 15 ml PO DAILY #240 ml 04/13/21 07/16/21 Pantoprazole Sodium [Protonix] 40 mg PO DAILY #30 tab 04/13/21 Propranolol [Inderal] 10 mg PO BID #60 tablet 04/13/21 Furosemide [Lasix] 80 mg PO BID 07/16/21 07/16/21 Spironolactone [Aldactone] 100 mg PO DAILY 07/16/21 07/16/21 - Allergies Allergies/Adverse Reactions: Allergies Allergy/AdvReac Type Severity Reaction Status Date / Time No Known Drug Allergies Allergy Verified 08/01/21 11:27 - Social History Does the pt smoke?: No Smoking Status: Never smoker Does the pt drink ETOH?: Yes Does the pt have substance abuse?: Yes - Immunizations Immunizations are current?: Yes Immunizations: TDAP >10years/unknown - POLST Patient has POLST: No PD ED PE NORMAL - Vitals Vital signs reviewed: Yes - General General: Alert and oriented X 3, No acute distress, Well developed/nourished - HEENT HEENT: PERRL, Moist mucous membranes - Neck Neck: Supple, no meningeal sign - Cardiac Cardiac: RRR, Strong equal pulses - Respiratory Respiratory: No respiratory distress, Clear bilaterally - Abdomen Abdomen: Soft, Non tender, Other (Distended abdomen, nontender, caput medusa present) - Derm Derm: Warm and dry - Extremities Extremities: No calf tenderness / cord - Neuro Neuro: Alert and oriented X 3, workforce development specialist 2-12 intact, No motor deficit, No sensory deficit, Normal speech - Psych Psych: Normal mood, Normal affect Results - Vitals Vitals: Vital Signs - 24 hr 08/01/21 11:00 Temperature 36.4 C L Heart Rate 95 Respiratory 19 Rate Blood Pressure 132/69 H O2 Saturation 96 Oxygen O2 Source [With Activity] Room air O2 Source Room air - Labs Labs: Laboratory Tests 08/01/21 08/01/21 08/01/21 11:50 11:50 11:50 WBC 2.6 L RBC 3.08 L Hgb 8.6 L Hct 27.4 L MCV 89.0 MCH 27.9 MCHC 31.4 L RDW 22.2 H Plt Count 84 L MPV 10.5 Neut # (Auto) 1.6 Lymph # (Auto) 0.[address] [facility] # (Auto) 0.4 Eos # (Auto) 0.1 Baso # (Auto) 0.0 Absolute Nucleated RBC 0.00 Nucleated RBC % 0.0 Manual Slide Review Indicated RBC Morph Micro Appear 4+ ANISOCYTOSIS Sodium 138 Potassium 2.9 L Chloride 106 Carbon Dioxide 20 L Anion Gap 12.0 BUN 15 Creatinine 0.9 Estimated GFR (MDRD) 83 L Glucose 98 Calcium 8.5 Total Bilirubin 1.7 H AST 33 ALT 18 Alkaline Phosphatase 160 H Total Protein 5.9 L Albumin 3.1 L Globulin 2.8 Albumin/Globulin Ratio 1.1 Lipase 42 TSH 3.38 Urine Color Urine Clarity Urine pH Ur Specific [place] Urine Protein Urine Glucose (UA) Urine Ketones Urine Occult Blood Urine Nitrite Urine Bilirubin Urine Urobilinogen Ur Leukocyte Esterase Urine RBC Urine WBC Ur Squamous Epith Cells Urine Bacteria Ur Microscopic Review Urine Culture Comments Salicylates < 6.0 Urine Opiates Screen Ur Oxycodone Screen Urine Methadone Screen Ur Propoxyphene Screen Acetaminophen < 10 L Ur Barbiturates Screen Ur Tricyclics Screen Ur Phencyclidine Scrn Ur Amphetamine Screen U Methamphetamines Scrn U Benzodiazepines Scrn Urine Cocaine Screen U Cannabinoids Screen Ethyl Alcohol < 5.0 08/01/21 11:55 WBC RBC Hgb Hct MCV MCH MCHC RDW Plt Count MPV Neut # (Auto) Lymph # (Auto) [facility] # (Auto) Eos # (Auto) Baso # (Auto) Absolute Nucleated RBC Nucleated RBC % Manual Slide Review RBC Morph Micro Appear Sodium Potassium Chloride Carbon Dioxide Anion Gap BUN Creatinine Estimated GFR (MDRD) Glucose Calcium Total Bilirubin AST ALT Alkaline Phosphatase Total Protein Albumin Globulin Albumin/Globulin Ratio Lipase TSH Urine Color YELLOW Urine Clarity CLEAR Urine pH 6.0 Ur Specific [place] 1.015 Urine Protein NEGATIVE Urine Glucose (UA) NEGATIVE Urine Ketones NEGATIVE Urine Occult Blood MODERATE H Urine Nitrite NEGATIVE Urine Bilirubin NEGATIVE Urine Urobilinogen 0.2 (NORMAL) Ur Leukocyte Esterase NEGATIVE Urine RBC 6-10 H Urine WBC 0-3 Ur Squamous Epith Cells FEW Squamous Urine Bacteria Few Ur Microscopic Review INDICATED Urine Culture Comments NOT INDICATED Salicylates Urine Opiates Screen NEGATIVE Ur Oxycodone Screen NEGATIVE Urine Methadone Screen NEGATIVE Ur Propoxyphene Screen NEGATIVE Acetaminophen Ur Barbiturates Screen NEGATIVE Ur Tricyclics Screen NEGATIVE Ur Phencyclidine Scrn NEGATIVE Ur Amphetamine Screen NEGATIVE U Methamphetamines Scrn NEGATIVE U Benzodiazepines Scrn POSITIVE H Urine Cocaine Screen NEGATIVE U Cannabinoids Screen NEGATIVE Ethyl Alcohol PD MEDICAL DECISION MAKING - ED course Complexity details: reviewed results, re-evaluated patient, considered differential, d/w patient ED course: Patient is ambulating without difficulty in the emergency department. No significant lab abnormalities compared to his usual values. Patient is asymptomatic and request to go home at this time. Patient will follow up with his doctor for further care. Patient counseled regarding signs and symptoms for which I believe and urgent re-evaluation would be necessary. Patient with good understanding of and agreement to plan and is comfortable going home at this time This document was made in part using voice recognition software. While efforts are made to proofread this document, sound alike and grammatical errors may occur. Departure - Departure Disposition: Home, Self Care Clinical Impression: End stage liver disease Ascites Qualifiers: Ascites type: due to alcoholic cirrhosis Qualified Code(s): K70.31 - Alcoholic cirrhosis of liver with ascites Condition: Good Instructions: ED Ascites Follow-Up: your,doctor in 1 week [Other] Comments: Follow-up with your doctor for further care. Return if you worsen.
[2021-08-01 14:59] VITALS: BP 142/88
== END 2021-08-01 13:30 | disposition home or self-care (01) ==
LOC: EDUNIT# → ED 10:51
DX: K72.10 Chronic hepatic failure without coma (principal); K70.31 Alcoholic cirrhosis of liver with ascites; I10 Essential (primary) hypertension
CPT/HCPCS: 36415; 80053; 80306; 80307; 81001; 83690; 84443; 85025; 99283; G0480; 80320; 80329; 81003; 87086

== ENCOUNTER 2021-08-23 21:36 | Outpatient (CLI) | payer MEDICARE | END 2021-08-23 23:59 | disposition critical access hospital (66) | LOC: EMS 21:36 | DX: S01.81XA Laceration without foreign body of other part of head, initial encounter (principal); W18.30XA Fall on same level, unspecified, initial encounter; Y93.01 Activity, walking, marching and hiking; Y92.414 Local residential or business street as the place of occurrence of the external cause; R41.82 Altered mental status, unspecified; Z72.89 Other problems related to lifestyle | CPT/HCPCS: A0425; A0429 ==

== ENCOUNTER 2021-08-23 21:58 | Emergency (ER) | payer MEDICARE ==
[2021-08-23] MEDS ORDERED: BACITRACIN ZINC OINT 1 PACKET TOP STA (22:39)
--- OUTSIDE RECORDS SUMMARY | 2021-08-23 22:52 | EXTERNAL MEDICAL SUMMARY RPT | Continuity of Care Document ---
:1950 Author Organization [facility] Address [address] [place] [address] Phone Care Team Providers Name Role Phone Registrar, Criselda Naylor Patient Unavailable Un available Allergies No information. Encounters No information. Medications No information. Problems date description facility [id number] Other [facility] [id number] [facility] [id number] enlarged testicles [facility] [id number] Groin Swelling [facility] [id number] Leg swelling stomach swelling [facility] [id number] Groin Swelling [facility] [id number] Left leg swelling [facility] [id number] Abnormal Lab [facility] [id number] [address] [facility] [id number] Abdominal Distension [facility] [id number] Needs paracentesis [facility] [id number] Fluid drainage [facility] [id number] swollen abd [facility] [id number] [facility] Results No information. Vital Signs date measurement value source [id number] weight_standard 178.8 lb [id number] weight_metric 81.1 kg [id number] temperature_standard 98.4 F [id number] temperature_metric 36.89 C [id number] respiration_rate 16 /min [id number] height_standard 66.75 in [id number] height_metric 169.54 cm [id number] heart_rate 106 /min [id number] BP_systolic 148 mm[Hg] [id number] BP_diastolic 70 mm[Hg] 20210725 BMI 28.32 kg/m2
--- NOTE | 2021-08-23 23:03 | ED Physician Documentation ---
History of Present Illness - Stated complaint Stated Complaint: GLF, HIT HEAD, ETOH - Chief complaint Chief Complaint: Trauma Hd/Nk - History obtained from History obtained from: Patient - Additonal information Additional information: 71-year-old man with past medical history of alcohol abuse presents status post witnessed fall onto his occiput with +bleeding and macerated tissue. Patient states that he was drinking alcohol and is clinically intoxicated. Unsure about loss of consciousness. Further history limited by patient intoxication. Review of Systems Unable to obtain: Intoxicated PD PAST MEDICAL HISTORY - Past Medical History Past Medical History: Yes Cardiovascular: Hypertension, High cholesterol, Coronary artery disease Respiratory: Sleep apnea Neuro: Dementia, Tremors, Other Endocrine/Autoimmune: None GI: GERD, Ulcers, Pancreatitis, Hepatitis, Cirrhosis : Incontinence HEENT: Chronic vision loss, Other Psych: Other Musculoskeletal: None Derm: None - Past Surgical History Past Surgical History: Yes General: Other HEENT: Tonsil/Adenoidectomy - Present Medications Home Medications: Ambulatory Orders Medication Instructions Recorded Confirmed Folic Acid 1 mg PO DAILY 30 Days #30 07/31/20 03/01/21 Tamsulosin [Flomax] 0.4 mg PO DAILY #30 cap 04/05/21 Diltiazem HCl [Diltiazem 12Hr ER] 120 mg PO DAILY #30 cap 04/13/21 Ferrous Gluconate 324 mg PO DAILY #30 tablet 04/13/21 Lactulose 15 ml PO DAILY #240 ml 04/13/21 07/16/21 Pantoprazole Sodium [Protonix] 40 mg PO DAILY #30 tab 04/13/21 Propranolol [Inderal] 10 mg PO BID #60 tablet 04/13/21 Furosemide [Lasix] 80 mg PO BID 07/16/21 07/16/21 Spironolactone [Aldactone] 100 mg PO DAILY 07/16/21 07/16/21 - Allergies Allergies/Adverse Reactions: Allergies Allergy/AdvReac Type Severity Reaction Status Date / Time No Known Drug Allergies Allergy Verified 08/23/21 22:04 - Social History Does the pt smoke?: No Smoking Status: Never smoker Does the pt drink ETOH?: Yes Does the pt have substance abuse?: Yes - Immunizations Immunizations are current?: Yes Immunizations: TDAP >10years/unknown - POLST Patient has POLST: No PD ED PE NORMAL - Vitals Vital signs reviewed: Yes - General General: No acute distress, Well developed/nourished, Other (clinically intoxicated) - HEENT HEENT: PERRL, EOMI, Other (midocciput with macerated tissue with overlying congealed blood about 2cm diameter. no palpable deformity) - Neck Neck: No bony TTP, Other (patient in towel collar. unable to tolerate c collar) - Cardiac Cardiac: RRR - Respiratory Respiratory: No respiratory distress, Clear bilaterally - Abdomen Abdomen: Non tender, Non distended - Back Back: No spinal TTP - Derm Derm: Normal color, Warm and dry - Extremities Extremities: No deformity - Neuro Neuro: No motor deficit, No sensory deficit Eye Opening: Spontaneous Motor: Obeys Commands Verbal: Confused GCS Score: 14 - Psych Psych: Other (clinically intoxicated) Results - Vitals Vitals: Vital Signs - 24 hr 08/23/21 22:04 Temperature 36.2 C L Heart Rate 81 Respiratory 17 Rate Blood Pressure 166/98 H O2 Saturation 97 Oxygen O2 Source [With Activity] Room air O2 Source Room air Procedures - Laceration (location) Scalp Posterior Length in cm: 2 Wound type: Linear Neurovascular status: Sensory intact, Motor intact, Vascular intact Wound preparation: Irrigated copiously NS, Wound explored, To the base Skin layer closure: Lily (3) Other: Patient tolerated well, No complications, Neurovascular intact, Dressing applied, Tetanus UTD PD MEDICAL DECISION MAKING - ED course ED course: 71yM p/w acute alcohol intoxication as well as GLF onto occiput. macerated tissue cleaned and dressed. tdap utd in 2013. will scan, reevaluate. CT is negative. C-spine cleared. 3 lily placed which will be removed in 10 days. Patient ambulatory with steady gait, tolerating p.o. Clinically sober. Return precautions given. Departure - Departure Disposition: 01 Home, Self Care Clinical Impression: Alcohol abuse, Scalp hematoma, Laceration of scalp, Fall from standing Condition: Stable Instructions: ED Laceration Scalp Stitch Or Stap Comments: You were seen in the emergency department for alcohol intoxication and a fall from standing. Your head and neck CTs were normal. You had a big cut on the back of your head that was cleaned and stapled. You need to have the three lily removed in 10 days. Please return to the ED if you have new or worsening symptoms or other concerns.
--- NOTE | 2021-08-23 23:33 | CT Report ---
PROCEDURE: HEAD WO INDICATIONS: fall from standing +HT +etoh TECHNIQUE: Noncontrast 4.5 mm thick angled axial sections acquired from the foramen magnum to the vertex. For r adiation dose reduction, the following was used: automated exposure control, adjustment of mA and/or kV according to patient size. COMPARISON: CT head 02/29/2020. FINDINGS: Image quality: Excellent. CSF spaces: Basal cisterns are patent. No extra-axial fluid collections. Ventricles are symmetric in size and shape. Brain: No midline shift. No acute intracranial hemorrhage or mass effect. Prominence of the ventricl es and sulci is consistent with chronic age-related cerebral and cerebellar volume loss. Hypodensitie s in the subcortical and periventricular white matter are nonspecific, but most only seen in setting of chronic microvascular ischemic changes Skull and face: A posterior occipital scalp hematoma is noted. Calvarium and visualized facial bones are intact, without suspicious lesions. Sinuses: Mild mucosal thickening in thickening in the left maxillary sinus. Visualized sinuses and ma stoids are clear. IMPRESSION: Posterior occipital scalp hematoma is noted. No underlying skull fracture. No acute intr acranial hemorrhage or mass effect. Reviewed by: Alfred June MD on 08/23/2021 11:33 PM PST Approved by: Alfred June MD on 08/23/2021 11:33 PM PST Station ID: [id number]
--- NOTE | 2021-08-23 23:35 | CT Report ---
PROCEDURE: CERVICAL SPINE WO INDICATIONS: fall from standing +etoh TECHNIQUE: Noncontrast 3 mm thick sections acquired from the skull base to the T4 level. Sagittal and coronal r eformats were then constructed. For radiation dose reduction, the following was used: automated exp osure control, adjustment of mA and/or kV according to patient size. COMPARISON: CT 02/28/2021. FINDINGS: Image quality: Excellent. Bones: No no acute fractures or dislocations. Visualized superior ribs are intact. Multilevel disc space narrowing and degenerative endplate changes are seen as well as facet hypertrophy and uncoverte bral joint hypertrophy. Straightening of the normal cervical lordosis is most likely related to degen erative changes. Soft tissues: Prevertebral soft tissues are normal in thickness. No paravertebral hematomas. No ap ical pneumothoraces. IMPRESSION: No acute cervical spine fracture or subluxation. Multilevel degenerative changes. Reviewed by: Alfred June MD on 08/23/2021 11:35 PM PST Approved by: Alfred June MD on 08/23/2021 11:35 PM PST Station ID: [id number]
[2021-08-24 06:01] VITALS: BP 133/82
== END 2021-08-24 07:00 | disposition home or self-care (01) ==
LOC: EDUNIT# → ED 21:58
DX: S01.01XA Laceration without foreign body of scalp, initial encounter (principal); W18.30XA Fall on same level, unspecified, initial encounter; Y92.521 Bus station as the place of occurrence of the external cause; F10.129 Alcohol abuse with intoxication, unspecified
CPT/HCPCS: 12001; 99281; 99284